=== PATIENT | male | born 1945 | race Caucasian/White ===

== ENCOUNTER → 2018-03-27 06:41 | Outpatient (CLI) | payer MEDICARE, MEDICAID, SELFPAY ==
--- NOTE | 2018-03-27 06:53 | MRI_ITS ---
STUDY: MRI BRAIN WITHOUT CONTRAST REASON FOR EXAM: Male, 72 years old. syncope, memory lloss, tremors d/t meds TECHNIQUE: Standardized multiplanar fat and water weighted pulse sequences were obtained. COMPARISON: None. FINDINGS: Normal size of the ventricles and extra-axial spaces for the patient's age. There are a limited number of small white matter hyperintensities, distributed throughout the deep white matter tracts of the cerebral hemispheres, consistent with mild chronic white matter ischemic changes. Normal bilateral basal ganglia. Normal thalami. There is no extra-axial fluid accumulation. Normal flow voids within the major intracranial circulation suggesting patency by spin echo criteria. Normal sella turcica, pituitary gland, infundibular stalk, optic chiasm and hypothalamus. Normal tectal plate and pineal gland. Normal midbrain, sheyla and medulla. Normal cerebellum. Normal basal cisterns. Normal bilateral temporal bones. Normal bilateral internal auditory canals. MRI/Brain without Contrast IMPRESSION: No acute intracranial abnormality. Electronically Signed: Balaji Brown MD at 8:07 EST Tel , Service support ,
--- OUTSIDE RECORDS SUMMARY | 2018-05-12 18:32 | XMS RPT_ITS ---
:1945 Author Organization OHIP Care Team Providers Name Role Phone Refugio Ro Attending Unavailable Refugio Ro Attending Unavailable Chad Foster Attending Unavailable Cristian, Chad S. Referring Unavailable Khandewal, Kathryn Primary Care Unavailable River Fosterh SKenan Attending Unavailable Cristian, Chad S. Referring Unavailable Khandewal, Kathryn Primary Care Unavailable FRANCISCO STARKS Admitting Unavailable DOMINIC LEDESMA Attending Unavailable MACKENZIE LIZARRAGA Consulting Unavailable BHAVIK TYLER Admitting Unavailable SOPHIA FONTENOT Attending Unavailable REMBERTO FERNANDEZ Consulting Unavailable ZAINA, CORONA Admitting Unavailable EUGENIA RAI () Attending Unavailable SYLVIA MCFARLAND Consulting Unavailable SHERITA STRANGE Attending Unavailable APOLLO, UPMA Admitting Unavailable APOLLO, UPMA Attending Unavailable GERMAN ADKINS Consulting Unavailable CRISTOBAL BROWN Attending Unavailable EUSEBIO XIAO Attending Unavailable APOLLO, UPMA Admitting Unavailable APOLLO, UPMA Attending Unavailable DEIRDRE REYES Attending Unavailable DAVID HIDALGO Referring Unavailable PROBLEMS PROBLEMS DATE TYPE CONDITION / CODE ATTENDING STATUS SOURCE 04/29/2018 Active Unknown / UNK(Unknown) APOLLO, UPMA Active [facility] Other [place] Repository 04/28/2018 Active Other symptoms and NA Active [facility] signs involving Clinic Other appearance and [place] behavior / Repository R46.89(ICD-10) 04/28/2018 Active Undifferentiated NA Active [facility] schizophrenia / Clinic Other F20.3(ICD-10) [place] Repository 03/11/2018 Active Laceration without SCHWIGER, EUSEBIO Active [facility] foreign body of left [facility] Clinic Other ear, initial encounter [place] / S01.312A(ICD-10) Repository 02/01/2018 Active Nausea with vomiting, CRISTOBAL BROWN Active [facility] unspecified / REFUGIO Clinic Other R11.2(ICD-10) [place] Repository 01/23/2018 Active Schizotypal disorder / APOLLO, 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) Clinic Other [place] Repository 01/22/2018 Active Schizophreniform SCHIKOWSKI, [facility]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 / SHERITA WEISS Clinic Other F20.81(ICD-10) [place] Repository 12/24/2017 Active Unspecified severe THUESTAD, EUGEINA [facility] protein-calorie A (MD) Clinic Other malnutrition / [place] E43(ICD-10) Repository 12/24/2017 Active Deficiency of other THUESTAD, EUGENIA [facility] specified B group A () Clinic Other vitamins / [place] E53.8(ICD-10) Repository 12/17/2017 Active Disorientation, THUESTAD, EUGENIA [facility] unspecified / A () Clinic Other R41.0(ICD-10) [place] Repository 12/17/2017 Active Pain in left toe(s) / THUESTAD, EUGENIA [facility] M79.675(ICD-10) A () Clinic Other [place] Repository 12/17/2017 Active Parkinson's disease / THUESTAD, EUGENIA [facility] G20(ICD-10) A () Clinic Other [place] Repository 12/17/2017 Active Dementia in other THUESTAD, EUGENIA [facility] diseases classified A () Clinic Other elsewhere with [place] behavioral disturbance Repository / F02.81(ICD-10) 09/09/2017 Active Mild protein-calorie POQUIANA FAYELA Active [facility] malnutrition / J Clinic Other E44.1(ICD-10) [place] Repository 09/03/2017 Active Tremor, unspecified / AHMED, VASEEM Active [facility] R25.1(ICD-10) Clinic Other [place] Repository 09/03/2017 Active Dysphagia, unspecified AHMED, VASEEM Active [facility] / R13.10(ICD-10) Clinic Other [place] Repository 09/03/2017 Active Abnormal weight loss / AHMED, VASEEM Active [facility] R63.4(ICD-10) Clinic Other [place] Repository 09/03/2017 Active Other malaise / AHMED, VASEEM Active [facility] R53.81(ICD-10) Clinic Other [place] Repository 09/03/2017 Active Other drug induced AHMED, 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 Clinic Other / G21.19(ICD-10) [place] Repository 06/10/2017 Unknown Z11.1 - Encounter for Refugio Ro Active [place] screening for [facility] tuberculosis / Repository Z11.1(ICD-10) PROCEDURES PROCEDURES No Procedure Records FoundRESULTS RESULTS CASE MANAGEM Observed: 05/06/2018 Status: COMPLETED Source: [place] 1:06 PM [facility] OTHER [place] REPOSITORY HNO ID: [id number] Author: Silva Bobby (Sw) Service: Social Work Author Type: Mathematics Faculty Member Type: Care Mgt Progress Note Filed: 05/06/2018 1:10 PM Note Text: BEHAVIORAL HEALTH SOCIAL WORK PROGRESS NOTE SERVICE DATE: 05/06/2018 SERVICE TIME: 1:06 PM Referral information sent to [facility] and [facility] [place] [facility]. Pt wasn't accepted at [facility] or [facility]. [facility] is still reviewing the information and [facility] is sending someone out to assess pt. Will continue to offer pt support and structure and assist with discharge plans. SIGNATURE: BRIELLE Baldwin PATIENT NAME: Sherita Jurado DATE: May 06, 2018 TIME: 1:06 PM PROGRESS Observed: 05/06/2018 Status: COMPLETED Source: [place] 11:54 AM CLINIC OTHER CAMPUS REPOSITORY HNO ID: [id number] Author: Vikram Washintgon Service: General Internal Medicine Author Type: Physician Type: Progress Notes Filed: 05/06/2018 12:53 PM Note Text: INTERNAL MEDICINE PROGRESS NOTE SERVICE DATE: 05/06/2018 SERVICE TIME: 11 am ADMITTING PHYSICIAN: Josse Balderrama Subjective CHIEF COMPLAINT: Acute psychosis Current Facility-Administered Medications: carboxymethylcellulose sodium 1 Drop (CELLUVISC) 1 Drop BOTH EYES PRN carbidopa-levodopa 25-100 mg 2 tablet (SINEMET 25-100) 2 tablet ORAL q 4 H while awake QUEtiapine 75 mg tab(s) (SEROquel) 75 mg ORAL BID acetaminophen 650 mg tab(s) (TYLENOL) 650 mg ORAL q 6 H PRN aluminum-magnesium hydroxide-simethicone 200-200-20 mg/5 mL 30 mL (MAALOX,MYLANTA,MAG-AL PLUS) 30 mL ORAL q 4 H PRN magnesium hydroxide 400 mg/5 mL 30 mL (MOM) 30 mL ORAL DAILY PRN heparin 5,000 Units injection 5,000 Units SUBCUTANEOUS q 12 H haloperidol lactate 1 mg injection (HALDOL) 1 mg INTRAMUSCULAR q 6 H PRN amantadine HCl 100 mg cap(s) (SYMMETREL) 100 mg ORAL BID donepezil 20 mg tab(s) (ARICEPT) 20 mg ORAL AT BEDTIME potassium chloride ER 10 mEq tab(s) (K-DUR, KLOR-CON) 10 mEq ORAL AT BEDTIME primidone 50 mg tab(s) (MYSOLINE) 50 mg ORAL q 12 H cyanocobalamin 500 mcg (VITAMIN B-12) 500 mcg ORAL DAILY cholecalciferol 1,000 Units tab(s) (VITAMIN D3) 1,000 Units ORAL DAILY INTERVAL HISTORY OF PRESENT ILLNESS: C/o left shoulder pain and leg swelling Objective PHYSICAL EXAM: Patient Vitals for the past 24 hrs: BP Temp Pulse Resp SpO2 05/06/18 0818 85/54 36.7 ?C (98.1 ?F) (!) 59 16 97 % 05/05/181956 95/54 - - - - 05/05/181926 (!) 87/37 37.2 ?C (99 ?F) 76 - 97 % Body mass index is 19.5 kg/m?. GENERAL: Alert, no distress, cooperative SKIN: Skin color, texture, turgor normal. No rashes or lesions. OROPHARYNX: Lips, mucosa, and tongue are normal.Teeth and gums, normal. Oropharynx normal. NECK: No jugulovenous distention, Supple LUNGS: Lungs clear to auscultation. Good diaphragmatic excursion. CARDIAC: Normal S1 and S2; no rubs, murmurs, or gallops ABDOMEN: Soft, nontender EXTREMITIES: No ulcers NEURO: Alert, oriented X 3 PULSES: 2+ radial, 2+ carotid DATA: Diagnostic tests reviewed for today's visit: CBC, Coags, BMP, Mg, Phos Recent Labs 05/04/18 1930 WBC 4.65 HB 12.8* HCT 37.7* PLT 206 NA 133* K 4.6 CHLOR 97* CO2 28 BUN 14 CREAT 0.79 GLUC 75 CA 8.6 Assessment/Plan Acute exacerbation of chronic schizoaffective schizophrenia (HCC) POA: Yes ? Schizophrenia, chronic condition with acute exacerbation (HCC) POA: Yes ? Parkinson's disease ? Acute psychosis Hypotension - asymptomatic Shoulder pain - Sec OA - lidocaine patch ? ? Plan: lidoderm patch and odessa hose stockings Resume home medication Labs to follow DVT prophylaxs Medication and Non-Pharmacologic VTE Prophylaxis/Anticoagulants Anticoagulant AND Antiplatelet Medications Start Dose Route Frequency Ordered Stop 04/29/18 1000 heparin 5,000 Units injection (Medical At Risk ) 5,000 Units SUBCUTANEOUS EVERY 12 HOURS 04/29/18 0955 -- 04/29/18 1015 vte non-pharmacologic prophylaxis contraindicated ([place] 04/29/18 1015 activity - mobilize [place] 04/29/18 1000 vte pharmacologic prophylaxis contraindicated [place] 04/29/18 1000 vte non-pharmacologic prophylaxis - none indicated ([place]) VTE Prophylaxis: VTE prophylaxis appropriate SIGNATURE: Vikram Washington MD PATIENT NAME: Sherita Jurado DATE: May 06, 2018 TIME: 11:54 AM PAGER/CONTACT #: [phone] NURSING PROG Observed: 05/06/2018 Status: COMPLETED Source: [place] 9:41 AM CLINIC OTHER CAMPUS REPOSITORY HNO ID: [id number] Author: Magdalena Pace RN Service: (none) Author Type: Registered Nurse Type: Nursing Progress Note Filed: 05/06/2018 12:13 PM Note Text: Nursing Progress Note Patient Name: Sherita Jurado Patient Location: [place]/ [place] Daily Note:A+Ox1-2, affect blunted, mood withdrawn, disengaged, poor eye contact, selectively nonverbal, ate breakfast and went back to bed, accepted VS and took medication without much difficulty, preoccupied, appears to be internally stimulated, no indication of pain, no SOB, in no acute distress, safety measures taken. Much sleeping, cooperative with PM medication, pt signed in and consent given by guardian. This note was completed by: Magdalena Pace RN NURSING PROG Observed: 05/05/2018 Status: COMPLETED Source: [place] 11:14 PM [facility] REPOSITORY HNO ID: [id number] Author: Michelle (Rn) JOSE Lozada Service: (none) Author Type: Registered Nurse Type: Nursing Progress Note Filed: 05/06/2018 6:13 AM Note Text: Nursing Progress Note Patient Name: Sherita Jurado Patient Location: [facility] [place] 421/ [place] Daily Note: Patient AANDOx2. No c/o pain. Speech is minimal and soft but does verbalize needs at times. No agitated or combative behaviors. Took HS meds whole with water, no issues. Was out to day area for short period of time for snack then went back to room. No other needs presented. Q15 minute safety rounds remain. 0109: pt sleeping 0355: pt remains sleeping 0612: pt awake, no needs. This note was completed by: Michelle Lozada RN CT BRAIN WO IVCON Observed: 05/05/2018 Status: F Source: [place] 2:50 PM [facility] REPOSITORY * * *Final Report* * * DATE OF EXAM: May 05 2018 2:50PM [facility] 0504 - CT BRAIN WO IVCON / PROCEDURE REASON: Head trauma, headache * * * * Physician Interpretation * * * * RESULT: EXAMINATION: CT BRAIN WO IVCON CLINICAL HISTORY: Head trauma, headache, TECHNIQUE: Serial axial images without IV contrast were obtained from the vertex to the foramen magnum. MQ: CTBWO_[id number] CT Dose-Length Product (DLP): 681 mGy*cm CT Dose Reduction Employed: Iterative recon COMPARISON: CT brain 12/17/2017 RESULT: Post-operative change: None. Acute change: No evidence of an acute infarct or other acute parenchymal process. Hemorrhage: No evidence of acute intracranial hemorrhage. Mass Lesion / Mass Effect: There is no evidence of an intracranial mass or extraaxial fluid collection. No significant mass effect. Chronic change: Small patchy foci of supratentorial white matter hypoattenuation are nonspecific but probably due to chronic small vessel ischemic disease. Parenchyma: There is no significant volume loss. The brain parenchyma is otherwise within normal limits for age. Ventricles: The ventricles are within normal limits of size and configuration for age. Paranasal sinuses and skull base: The visualized paranasal sinuses are grossly clear. The skull base and imaged soft tissues are unremarkable. IMPRESSION: No acute intracranial process Transcribed Using Voice Recognition Transcribe Date/Time: May 05 2018 2:52P Dictated by: MARIA INES DIETRICH MD This examination was interpreted and the report reviewed and electronically signed by: MARIA INES DIETRICH MD on May 05 2018 3:09PM EST [id number] [id number] Observed: 05/05/2018 Status: COMPLETED Source: [place] 1:47 PM CLINIC OTHER CAMPUS REPOSITORY HNO ID: [id number] Author: Josse Balderrama Service: Psychiatry Author Type: Physician Type: Progress Notes Filed: 05/06/2018 9:41 AM Note Text: PROGRESS NOTE BEHAVIORAL HEALTH SERVICE DATE: 05/05/2018 SERVICE TIME: 1:47 PM The Interdisciplinary team met and reviewed treatment goals and discharge planning. Subjective He is secluded to self and has been more resistive with care issues. Objective PHYSICAL EXAM: BP 122/68 Pulse 66 Temp 36.4 ?C (97.5 ?F) (Oral) Resp 18 Ht 188 cm (6' 2) Wt 68.9 kg (151 lb 14.4 oz) SpO2 96% BMI 19.50 kg/m? MENTAL STATUS EXAMINATION: Appearance: Casually dressed Behavior: Disorganized Orientation: Person Speech/Language: Soft and Slow Mood/Affect: Suspicious Thought Form: Tangential Thought Content: Vague Suicidal Ideations: No suicidal ideation, intent or plan. Homicidal Ideations: No homicidal ideation, intent or plan. Insight: Insight is absent Judgment: Grossly impaired Memory/Cognition: Moderately Impaired Psychomotor: Psychomotor activity was normal NEW PROBLEMS ON UNIT SINCE LAST ENCOUNTER: None Current hospital medications: carboxymethylcellulose sodium 1 Drop (CELLUVISC) 1 Drop BOTH EYES PRN carbidopa-levodopa 25-100 mg 2 tablet (SINEMET 25-100) 2 tablet ORAL q 4 H while awake QUEtiapine 75 mg tab(s) (SEROquel) 75 mg ORAL BID acetaminophen 650 mg tab(s) (TYLENOL) 650 mg ORAL q 6 H PRN aluminum-magnesium hydroxide-simethicone 200-200-20 mg/5 mL 30 mL (MAALOX,MYLANTA,MAG-AL PLUS) 30 mL ORAL q 4 H PRN magnesium hydroxide 400 mg/5 mL 30 mL (MOM) 30 mL ORAL DAILY PRN heparin 5,000 Units injection 5,000 Units SUBCUTANEOUS q 12 H haloperidol lactate 1 mg injection (HALDOL) 1 mg INTRAMUSCULAR q 6 H PRN amantadine HCl 100 mg cap(s) (SYMMETREL) 100 mg ORAL BID donepezil 20 mg tab(s) (ARICEPT) 20 mg ORAL AT BEDTIME potassium chloride ER 10 mEq tab(s) (K-DUR, KLOR-CON) 10 mEq ORAL AT BEDTIME primidone 50 mg tab(s) (MYSOLINE) 50 mg ORAL q 12 H cyanocobalamin 500 mcg (VITAMIN B-12) 500 mcg ORAL DAILY cholecalciferol 1,000 Units tab(s) (VITAMIN D3) 1,000 Units ORAL DAILY DATA: Diagnostic tests reviewed for today's visit: Most recent labs and imaging results. Assessment/Plan DIAGNOSIS: 1. PRIMARY: Schizophrenia Paranoid Type with acute exacerbation 2. Dementia with behavioral problems GAF: -30-21 Behavior is considerably influenced by delusions or hallucination or serious impairment in communication or judgment RISK ASSESSMENT: Suicide: low Homicide: low Deliberate Self-Harm: low Aggression: low Imminent Physical Self Impairment: low INFORMED CONSENT: Yes, completed with the Designated POA over Healthcare. Discussed the risks, benefits and alternatives to the medication(s) recommended. Consent was given. INTERVENTION: Biological: see orders Psychological: group and behavioral therapy Social: home with services DISCHARGE PLANNING: when stable SIGNATURE: Diana Casillas APRN.CNP PATIENT NAME: Sherita Jurado DATE: May 05, 2018 TIME: 1:47 PM PAGER/CONTACT#: [phone] I saw and evaluated the patient. Discussed with the RESIDENT INSPECTOR and agree with RESIDENT INSPECTOR's findings and plan as documented in the RESIDENT INSPECTOR's note. Kelechi Yan MD CASE MANAGEM Observed: 05/05/2018 Status: COMPLETED Source: [place] 1:08 PM [facility] REPOSITORY HNO ID: [id number] Author: Silva Bobby (Sw) Service: Social Work Author Type: Mathematics Faculty Member Type: Care Mgt Progress Note Filed: 05/05/2018 1:16 PM Note Text: BEHAVIORAL HEALTH SOCIAL WORK PROGRESS NOTE SERVICE DATE: 05/05/2018 SERVICE TIME: 1:08 PM Pt is A+OX2. He has been compliant with taking his medications and cooperative with care. His affect is blunted and mood appears depressed. He is withdrawn and isolative. He will come out of his room for meals. He continues to appear suspicious and guarded. He doesn't attend group therapy programs. He has been less paranoid and delusional. He will still lay down on the floor, by his own accord. Displays bizarre behaviors. He does respond to redirection. Referral information sent to [facility]; awaiting for a response. Will continue to offer pt support and structure and assist with discharge plans. SIGNATURE: BRIELLE Baldwin PATIENT NAME: Sherita Jurado DATE: May 05, 2018 TIME: 1:08 PM NUTRITION Observed: 05/05/2018 Status: COMPLETED Source: [place] 12:17 PM [facility] REPOSITORY HNO ID: [id number] Author: Tanya Clements Service: Nutrition Therapy Author Type: Registered Dietitian Type: Nutrition Filed: 05/05/2018 12:37 PM Note Text: NUTRITION THERAPY INITIAL ASSESSMENT SERVICE DATE: 05/05/2018 SERVICE TIME: 12:34 PM RECOMMENDED MALNUTRITION DIAGNOSIS: MILD PROTEIN-CALORIE MALNUTRITION Suspect degree of malnutrition to be greater d/t unintentional weight loss. Pt unable to participate in NFPE. In the context of Social/Environmental Circumstance based on: Unintentional Weight Loss: >10% in 6 months NUTRITION CARE PLAN: Problem, Etiology and Signs/Symptoms: Increased nutrient needs (energy/protein) related to increased demand for nutrient as evidenced by significant unintentional weight loss (>10%) over the last 6 months. Intervention: Start oral supplement Continue diet Monitor oral intake and weights FR per MD - mild hyponatremia documented Please provide feeding assistance Monitor and Evaluation: Goal: Meet >75% of estimated needs Monitor fluid/electrolyte balance Monitor labs, I/Os, vital signs, weight Discharge Nutrition Recommendations: Diet: dental soft Supplements: moderate calorie/protein per pt preference Per HPI: Sherita presents for admission secondary to increased paranoia and psychosis. PAST MEDICAL HISTORY Diagnosis Date - Actinic keratosis - Breast lump LT breast; cavernous hemangioma/excised - Dizziness - Epidermoid cyst of skin - Falls - Lipoma of skin forearms and abdomen - Mammogram abnormal suspicious of cancer- referral made - Obesity - On upper doubler drug therapy - Palpitations - Parkinson disease (HCC) - Schizophrenia (HCC) - Tremor - Vitamin D deficiency schizophrenia with acute exacerbation Current Diet Order DIET FOOD CONSISTENCY CONTROLLED Order Specific Question: Food Consistency Answer: DENTAL SOFT Order Specific Question: Behavioral Medicine Answer: SAFETY TRAY Nutritional Intake Prior to Admission: Unable to determine Pt averaging 76.55 of meals over last 7 days documented. Attempted to meet with pt this morning. He was in his room - eyes opened when I entered the room but then closed them and would not respond to assessment questions. Referred to nutrition note from January admission to 4th floor. Pt diet was downgraded to dental soft d/t poor dentition - this is the diet currently ordered. Per EPIC appears pt tolerating diet well. NSG confirms pt appetite good. D/t significant weight loss over the last 6 months to order ensure and ensure high protein with meals. GI symptoms: chewing problems Nutrition Abdominal Exam: and not assessed ANTHROPOMETRICS Height: 188 cm (6' 2) Admission Weight: 72.8 kg (160 lb 6.4 oz) Current Weight: 68.9 kg (151 lb 14.4 oz) Body mass index is 19.5 kg/m?. underweight for age Weight has decreased by 9.2 kg over ~6 months representing 12.2 % weight change clinically significant Last Wt 05/02/18 : 68.9 kg (151 lb 14.4 oz) 04/28/18 : 72.6 kg (160 lb) 03/11/18 : 78.2 kg (172 lb 6.4 oz) -ED weight - scale type not specified 02/01/18 : 72.6 kg (160 lb) 01/24/18 : 72.3 kg (159 lb 6.4 oz) - EU 4th floor bed scale 01/22/18 : 75.3 kg (166 lb) 12/17/17 : 75.4 kg (166 lb 3.2 oz) 12/17/17 : 77 kg (169 lb 12.8 oz) 12/16/17 : 78.5 kg (173 lb) 12/10/17 : 74.8 kg (165 lb) 11/12/17 : 78.1 kg (172 lb 3.2 oz) 10/16/17 : 78.9 kg (174 lb) 09/09/17 : 76.8 kg (169 lb 4.8 oz) 09/03/17 : 83.5 kg (184 lb) 08/25/17 : 83.5 kg (184 lb) 08/04/17 : 85.3 kg (188 lb) 07/24/17 : 85.4 kg (188 lb 3.2 oz) 02/06/17 : 93 kg (205 lb) 11/08/16 : 94.3 kg (208 lb) 11/30/15 : 97.1 kg (214 lb) IBW: 81.2 kg for BMI >/=23 Dosing Weight: 68.9 kg Resting Metabolic Rate: 1509 Estimated kilocalorie needs: 4597-2527 kilocalories determined by 27-32 kcal/kg Estimated protein needs: 89-117 grams determined by 1.3-1.7 g/kg Dosing weight Estimated fluid needs: 3128-9179 milliliters based on 1 mL per kcal NUTRITION FOCUSED PHYSICAL EXAM: Unable to perform exam due to patient unable to participate, will re-attempt during reassessment. Temperature Max in 24 hours: Temp (24hrs), Av.3 ?C (97.3 ?F), Min:36.2 ?C (97.2 ?F), Max:36.4 ?C (97.5 ?F) BP 122/68 Pulse 66 Temp 36.4 ?C (97.5 ?F) (Oral) Resp 18 Ht 188 cm (6' 2) Wt 68.9 kg (151 lb 14.4 oz) SpO2 96% BMI 19.50 kg/m? Recent Labs 05/04/18 1930 GLUC 75 BUN 14 CREAT 0.79 NA 133* K 4.6 CHLOR 97* CO2 28 HB 12.8* HCT 37.7* WBC 4.65 Potential Signs of Inflammation: no identifiable sources Current Facility-Administered Medications: carboxymethylcellulose sodium 1 Drop (CELLUVISC) 1 Drop BOTH EYES PRN carbidopa-levodopa 25-100 mg 2 tablet (SINEMET 25-100) 2 tablet ORAL q 4 H while awake QUEtiapine 75 mg tab(s) (SEROquel) 75 mg ORAL BID acetaminophen 650 mg tab(s) (TYLENOL) 650 mg ORAL q 6 H PRN aluminum-magnesium hydroxide-simethicone 200-200-20 mg/5 mL 30 mL (MAALOX,MYLANTA,MAG-AL PLUS) 30 mL ORAL q 4 H PRN magnesium hydroxide 400 mg/5 mL 30 mL (MOM) 30 mL ORAL DAILY PRN heparin 5,000 Units injection 5,000 Units SUBCUTANEOUS q 12 H haloperidol lactate 1 mg injection (HALDOL) 1 mg INTRAMUSCULAR q 6 H PRN amantadine HCl 100 mg cap(s) (SYMMETREL) 100 mg ORAL BID donepezil 20 mg tab(s) (ARICEPT) 20 mg ORAL AT BEDTIME potassium chloride ER 10 mEq tab(s) (K-DUR, KLOR-CON) 10 mEq ORAL AT BEDTIME primidone 50 mg tab(s) (MYSOLINE) 50 mg ORAL q 12 H cyanocobalamin 500 mcg (VITAMIN B-12) 500 mcg ORAL DAILY cholecalciferol 1,000 Units tab(s) (VITAMIN D3) 1,000 Units ORAL DAILY MNT Billing Type: Initial Assess/15 min 3 units SIGNATURE: Tanya Clements RD,LD PATIENT NAME: Sherita Jurado DATE: May 05, 2018 TIME: 12:17 PM PAGER: [phone] NURSING PROG Observed: 05/05/2018 Status: COMPLETED Source: [place] 10:41 AM CLINIC OTHER CAMPUS REPOSITORY HNO ID: [id number] Author: Kamila (Rn) JOSE Villalta Service: (none) Author Type: Registered Nurse Type: Nursing Progress Note Filed: 05/05/2018 6:11 PM Note Text: Nursing Progress Note Patient Name: Sherita Jurado Patient Location: [place]/ [place] Daily Note: Pt alert and oriented x 2. Less bizarre and blunted. Pleasant with care and takes his medication easily whole with water. Out to day area for breakfast. Presently back in room resting comfortable. Will encourage group attendance. 1200 Pt found sitting on floor next to bed by staff member after she heard a bang. Pt. selectively nonverbal but gestured that he leaned back and hit the radiator. Has a history of sitting and laying down on the floor. Denies pain or falling. CT of head ordered. SERS report filed. 1600 CT shows no acute intracranial process. Pt out to day area for dinner. No agitation or further behaviors. Has been continent this shift. 15 Minute safety rounds maintained. This note was completed by: Kamila Villalta RN NURSING PROG Observed: 05/05/2018 Status: COMPLETED Source: [place] 5:14 AM [facility] OTHER [place] REPOSITORY HNO ID: [id number] Author: Jamila (Rn) JOSE Barrett Service: Nursing Author Type: Registered Nurse Type: Nursing Progress Note Filed: 05/05/2018 5:14 AM Note Text: Nursing Progress Note Patient Name: Sherita Jurado Patient Location: [address]/ [place] Daily Note:Pt was in bed, resting comfortably. Pt took HS meds w/o difficultly. Pt was assisted to the bathroom as needed. No s/s of pain or distress. Pt slept long hours. This note was completed by: Jamila Barrett RN CBC AND DIFFERENTIAL Collected: 05/04/2018 Status: F Source: [place] 7:30 PM [facility] OTHER [place] REPOSITORY TYPE CODE TESTS RESULT OUT OF REFERENCE UNITS RANGE LAB WBC 3.70-11.00 k/uL WBC 4.65 LAB RBC 4.20-6.00 m/uL Low RBC 3.91 LAB HGB 13.0-17.0 g/dL Low Hemoglobin 12.8 LAB HCT 39.0-51.0 % Low Hematocrit 37.7 LAB MCV 80.0-100.0 fL MCV 96.4 LAB MCH 26.0-34.0 pG MCH 32.7 LAB MCHC 30.5-36.0 g/dL MCHC 34.0 LAB RDWCV 11.5-15.0 % RDW-CV 12.6 LAB PLTCT 150-400 k/uL Platelet Count 206 LAB MPV 9.0-12.7 fL MPV 9.6 LAB ANEUT % Neut% 63.1 LAB AANEUT 1.45-7.50 k/uL Abs Neut 2.93 LAB ALYMP % Lymph% 26.0 LAB AALYMP 1.00-4.00 k/uL Abs Lymph 1.21 LAB AMONO % Ceiba% 9.2 LAB AAMONO <0.87 k/uL Abs Ceiba 0.43 LAB AEOS % Eosin% 1.3 LAB AAEOS <0.46 k/uL Abs Eosin 0.06 LAB ABASO % Baso% 0.4 LAB AABASO <0.11 k/uL Abs Baso <0.03 LAB DTYP DTYPE Auto Diff BASIC METABOLIC PANL Collected: 05/04/2018 Status: F Source: [facility] 7:30 PM [facility] OTHER C[facility]US REPOSITORY TYPE CODE TESTS RESULT OUT OF REFERENCE UNITS RANGE LAB GLU 65-100 mg/dL Glucose 75 LAB BUN 8-25 mg/dL BUN 14 LAB CRET 0.7-1.4 mg/dL Creatinine 0.79 LAB NA 135-146 mmol/L Low Sodium 133 LAB K 3.5-5.0 mmol/L Potassium 4.6 LAB CL 98-110 mmol/L Low Chloride 97 LAB CO2 23-32 mmol/L CO2 28 LAB AGAP 0-15 mmol/L Anion Gap 8 LAB CA 8.5-10.5 mg/dL Calcium, Total 8.6 ALLIED HE[facility] Observed: 05/04/2018 Status: COMPLETED Source: [facility] 5:36 PM CLINIC OTHER CAMPUS REPOSITORY HNO ID: [id number] Author: AGUSTÍN Parsons Service: Behavioral Health Author Type: Dance Movement Therapist Type: Allied Health Filed: 05/05/2018 5:47 PM Note Text: PROGRESS NOTE BEHAVIORAL HEALTH Topic of Note: Three Day Note dance movement therapy SERVICE DATE: 05/04/2018 SERVICE TIME: 5:21 PM Subjective: Sherita presents as inconsistent In group attendance withdrawing And refusing more sessions than attending However When he does attend he engages fully, animated and verbalizing his feelings yea I can do this ( demonstrating his movement skill in DMT) for the most part however he is reclusive to room sleeps a lot( sometimes pretends when invited to group that he is sleeping, getting up after therapist leaves and walking to the dining room while peers are in group). He presents as minimally progressing in his stabilization process and As with a few other peers finds the nights more difficult , not sleeping and needing attention. Nurses noted change in Not sleeping Through the night 05/01/18 to now sleeping more at night and up more in the dayroom during the day but refusing groups. Objective: The following table accounts the patient's attendance (minutes attended / minutes offered) for all offered ET and other group sessions since last report: Date ET / Group topics Attendence Comments 05/02/18 DMT: Friday stretch/ gila river of support goals/ progress 0 ? 05/03/18 SC:DMT Sabbath at Home/ Prayer Service/ Holy Communion ?came early Left early after Communion with a handshake of peace 05/03/18 RT: Arts/ Crafts Collage making ?sleeping 05/04/18 RT: Exercise, parachute and discussion left chacorta but while there engaged 05/04/18 DMT: MLK Holiday reflection / meditation refused wanted to sleep 05/05/18 DMT:Reaching out, postures and gestures 005/05/18 DMT: sensory integration, energy medicine And emotional expression 0 Off unit For medical check up re being found sitting on the floor received CT scan ? Pt also receives daily 1:1 symptom/mood check-in and/or good morning group for orientation/schedule. ? Assessment: Pt demonstrates a continued need for expressive therapies while in the hospital. ? Plan: Pt will continue to be offered expressive therapies 5x per week to: ? ? Increase socialization and positive support systems Improve communication and emotional expression Channel energy feelings into constructive outlets Explore creative expression Relaxation skills Dance movement Therapy/ Spiritual Care interventions may include, but are not limited to: ? Therapeutic arts ? Relaxation/stress management ? Therapeutic fitness ? Identifying positive coping skills ? Reminiscing ? Self Awareness/self expression exercises ? Structured Socialization [place] DMT: Dance Movement Therapy MT: Music Therapy DR: Dining Room SW: Mathematics Faculty Member ET: Expressive Therapy RT: Recreation Therapy ? SIGNATURE: AGUSTÍN Parsons PATIENT NAME: Sherita Jurado DATE: May 04, 2018 TIME: 5:37 PM PAGER/CONTACT #: NURSING PROG Observed: 05/04/2018 Status: COMPLETED Source: [facility] 2:12 PM [facility] REPOSITORY HNO ID: [id number] Author: Kamila (Rn) JOSE Villalta Service: (none) Author Type: Registered Nurse Type: Nursing Progress Note Filed: 05/04/2018 5:59 PM Note Text: Nursing Progress Note Patient Name: Sherita Jurado Patient Location: [address] Daily Note: Pt alert and oriented x 2 - 3. Less suspicious and somewhat more engaged. Affect blunted but is cooperative with care and medication compliant. Remaining out in day area for more extended periods of time. Refused to attend group. Sleeps with covers over his head. Incontinent this afternoon. 15 minute safety rounds maintained. This note was completed by: Kamila Villalta RN PROGRESS Observed: 05/04/2018 Status: COMPLETED Source: [facility] 11:38 AM [facility] OTHER [place] REPOSITORY HNO ID: [id number] Author: Josse Balderrama Service: Psychiatry Author Type: Physician Type: Progress Notes Filed: 05/05/2018 9:33 AM Note Text: PROGRESS NOTE BEHAVIORAL HEALTH SERVICE DATE: 05/04/2018 SERVICE TIME: 11:38 AM The Interdisciplinary team met and reviewed treatment goals and discharge planning. Subjective Will come out for meals only. Mood and affect blunted, guarded, suspicious. No behaviors. Objective PHYSICAL EXAM: BP 135/66 Pulse 76 Temp 36.9 ?C (98.4 ?F) (Oral) Resp 18 Ht 188 cm (6' 2) Wt 68.9 kg (151 lb 14.4 oz) SpO2 98% BMI 19.50 kg/m? MENTAL STATUS EXAMINATION: Appearance: Disheveled Behavior: Disorganized Orientation: Person Speech/Language: Soft and Slow Mood/Affect: Suspicious Thought Form: Loose Associations Thought Content: Delusions: Bizarre Suicidal Ideations: No suicidal ideation, intent or plan. Homicidal Ideations: No homicidal ideation, intent or plan. Insight: Insight is absent Judgment: Grossly impaired Memory/Cognition: Severly Impaired Psychomotor: Tremors NEW PROBLEMS ON UNIT SINCE LAST ENCOUNTER: None Current hospital medications: carboxymethylcellulose sodium 1 Drop (CELLUVISC) 1 Drop BOTH EYES PRN carbidopa-levodopa 25-100 mg 2 tablet (SINEMET 25-100) 2 tablet ORAL q 4 H while awake QUEtiapine 75 mg tab(s) (SEROquel) 75 mg ORAL BID acetaminophen 650 mg tab(s) (TYLENOL) 650 mg ORAL q 6 H PRN aluminum-magnesium hydroxide-simethicone 200-200-20 mg/5 mL 30 mL (MAALOX,MYLANTA,MAG-AL PLUS) 30 mL ORAL q 4 H PRN magnesium hydroxide 400 mg/5 mL 30 mL (MOM) 30 mL ORAL DAILY PRN heparin 5,000 Units injection 5,000 Units SUBCUTANEOUS q 12 H haloperidol lactate 1 mg injection (HALDOL) 1 mg INTRAMUSCULAR q 6 H PRN amantadine HCl 100 mg cap(s) (SYMMETREL) 100 mg ORAL BID donepezil 20 mg tab(s) (ARICEPT) 20 mg ORAL AT BEDTIME potassium chloride ER 10 mEq tab(s) (K-DUR, KLOR-CON) 10 mEq ORAL AT BEDTIME primidone 50 mg tab(s) (MYSOLINE) 50 mg ORAL q 12 H cyanocobalamin 500 mcg (VITAMIN B-12) 500 mcg ORAL DAILY cholecalciferol 1,000 Units tab(s) (VITAMIN D3) 1,000 Units ORAL DAILY DATA: Diagnostic tests reviewed for today's visit: Most recent labs and imaging results. Assessment/Plan DIAGNOSIS: 1. PRIMARY: Schizophrenia Paranoid Type with acute exacerbation 2. Dementia with behavioral problems GAF: -30-21 Behavior is considerably influenced by delusions or hallucination or serious impairment in communication or judgment RISK ASSESSMENT: Suicide: low Homicide: low Deliberate Self-Harm: low Aggression: low Imminent Physical Self Impairment: low INFORMED CONSENT: Yes, completed with the Designated POA over Healthcare. Discussed the risks, benefits and alternatives to the medication(s) recommended. Consent was given. INTERVENTION: Biological: see orders Psychological: group and behavioral therapy Social: new placement DISCHARGE PLANNING: when placement found SIGNATURE: Diana Casillas APRN.CNP PATIENT NAME: Sherita Jurado DATE: May 04, 2018 TIME: 11:38 AM PAGER/CONTACT#: [phone] I saw the patient and have read and reviewed the RESIDENT INSPECTOR's note and findings. I have discussed the RESIDENT INSPECTOR's findings and plan as documented in the RESIDENT INSPECTOR's note. Josse Balderrama MD PROGRESS Observed: 05/04/2018 Status: COMPLETED Source: [facility] 6:37 AM [facility] OTHER CAMPUS REPOSITORY O ID: [id number] Author: Vikram Washington Service: General Internal Medicine Author Type: Physician Type: Progress Notes Filed: 05/04/2018 7:03 PM Note Text: INTERNAL MEDICINE PROGRESS NOTE SERVICE DATE: 05/04/2018 SERVICE TIME: 8 am ADMITTING PHYSICIAN: Josse Balderrama Subjective CHIEF COMPLAINT: Resting tremor present Current Facility-Administered Medications: carboxymethylcellulose sodium 1 Drop (CELLUVISC) 1 Drop BOTH EYES PRN carbidopa-levodopa 25-100 mg 2 tablet (SINEMET 25-100) 2 tablet ORAL q 4 H while awake QUEtiapine 75 mg tab(s) (SEROquel) 75 mg ORAL BID acetaminophen 650 mg tab(s) (TYLENOL) 650 mg ORAL q 6 H PRN aluminum-magnesium hydroxide-simethicone 200-200-20 mg/5 mL 30 mL (MAALOX,MYLANTA,MAG-AL PLUS) 30 mL ORAL q 4 H PRN magnesium hydroxide 400 mg/5 mL 30 mL (MOM) 30 mL ORAL DAILY PRN heparin 5,000 Units injection 5,000 Units SUBCUTANEOUS q 12 H haloperidol lactate 1 mg injection (HALDOL) 1 mg INTRAMUSCULAR q 6 H PRN amantadine HCl 100 mg cap(s) (SYMMETREL) 100 mg ORAL BID donepezil 20 mg tab(s) (ARICEPT) 20 mg ORAL AT BEDTIME potassium chloride ER 10 mEq tab(s) (K-DUR, KLOR-CON) 10 mEq ORAL AT BEDTIME primidone 50 mg tab(s) (MYSOLINE) 50 mg ORAL q 12 H cyanocobalamin 500 mcg (VITAMIN B-12) 500 mcg ORAL DAILY cholecalciferol 1,000 Units tab(s) (VITAMIN D3) 1,000 Units ORAL DAILY INTERVAL HISTORY OF PRESENT ILLNESS: Denies any pain Objective PHYSICAL EXAM: Patient Vitals for the past 24 hrs: BP Temp Temp src Pulse Resp SpO2 05/03/18 0800 110/62 37 ?C (98.6 ?F) Oral 85 16 96 % Body mass index is 19.5 kg/m?. GENERAL: Alert, no distress, cooperative SKIN: Negative OROPHARYNX: negative NECK: No jugulovenous distention, Supple LUNGS: Negative CARDIAC: Normal S1 and S2; no rubs, murmurs, or gallops ABDOMEN: Soft, nontender EXTREMITIES: No ulcers NEURO: Alert, oriented X 3 PULSES: 2+ radial, 2+ carotid DATA: Diagnostic tests reviewed for today's visit: CBC, Coags, BMP, Mg, Phos Assessment/Plan Acute exacerbation of chronic schizoaffective schizophrenia (HCC) POA: Yes ? Schizophrenia, chronic condition with acute exacerbation (HCC) POA: Yes ? Parkinson's disease ? Acute psychosis ? ? Plan: Resume home medication Labs to follow DVT prophylaxs Medication and Non-Pharmacologic VTE Prophylaxis/Anticoagulants Anticoagulant AND Antiplatelet Medications Start Dose Route Frequency Ordered Stop 04/29/18 1000 heparin 5,000 Units injection (Medical At Risk ) 5,000 Units SUBCUTANEOUS EVERY 12 HOURS 04/29/18 0955 -- 04/29/18 1015 vte non-pharmacologic prophylaxis contraindicated (mo,oh) 04/29/18 1015 activity - mobilize patient (mo,oh) 04/29/18 1000 vte pharmacologic prophylaxis contraindicated (mo,oh) 04/29/18 1000 vte non-pharmacologic prophylaxis - none indicated (mo,oh) VTE Prophylaxis: VTE prophylaxis appropriate SIGNATURE: Vikram Washington MD PATIENT NAME: Sherita Jurado DATE: May 04, 2018 TIME: 6:37 AM PAGER/CONTACT #: [phone] NURSING PROG Observed: 05/04/2018 Status: COMPLETED Source: [facility] 6:14 AM [facility] REPOSITORY HNO ID: [id number] Author: Jamila (Rn) JOSE Barrett Service: Nursing Author Type: Registered Nurse Type: Nursing Progress Note Filed: 05/04/2018 6:14 AM Note Text: Nursing Progress Note Patient Name: Sherita Jurado Patient Location: [place]-403/ [place]-* Daily Note:Pt was in bed, resting comfortably. Pt took HS meds w/o difficultly. Pt was assisted to the bathroom as needed. No s/s of pain or distress. Pt slept long hours. This note was completed by: Jamila Barrett RN URINALYSIS WITH Collected: 05/03/2018 Status: F Source: [facility] 6:00 PM [facility] REPOSITORY TYPE CODE TESTS RESULT OUT OF RANGE REFERENCE UNITS LAB UCOL Yellow Color Abnormal Straw Alert LAB [facility] Clear Clarity Clear LAB UGLUC Negative mg/dL Glucose, Urine Negative LAB UBIL Negative Bilirubin, Urine Negative LAB UKET Negative Ketones, Urine Negative LAB USPG 1.003-1.030 Specific [place], Ur 1.020 LAB UHGB Negative Hemoglobin/Blood, Negative Ur LAB UPH 5.0-9.0 pH 7.0 LAB UPROT Negative mg/dL Protein, Urine Negative LAB UUROB 0.2-1.0 Urobilinogen 1.0 LAB UNITR Negative Nitrites Negative LAB ULKEST Negative Leukest Negative LAB UWBC 0-5 /HPF WBC 0-5 LAB URBC 0-3 /HPF RBC 0-3 LAB UCAST 0 /LPF Cast SEE COMMENT Result Comment: 0 LAB UBACT Negative /HPF Bacteria Abnormal 1+ Alert LAB UEPI Occasional /HPF Epithelial Cells SEE COMMENT Result Comment: Occasional Squamous Epithelial Cells Observed: 05/03/2018 Status: F Source: [facility] URINE CULTURE 6:00 PM [facility] OTHER CAMPUS REPOSITORY Sp. Request/Comment: - Specimen received in preservative Culture Result - >=100,000 CFU/ml Viridans Streptococcus --> ABNORMAL ALERT No further workup --> ABNORMAL ALERT Performed By: #### URCUL #### [facility] [address] [place], [place] [address] PROGRESS Observed: 05/03/2018 Status: COMPLETED Source: [facility] 1:34 PM [facility] OTHER CAMPUS REPOSITORY HNO ID: [id number] Author: Josse Balderrama Service: Psychiatry Author Type: Physician Type: Progress Notes Filed: 05/05/2018 9:33 AM Note Text: PROGRESS NOTE BEHAVIORAL HEALTH SERVICE DATE: 05/03/2018 SERVICE TIME: 1:34 PM The Interdisciplinary team met and reviewed treatment goals and discharge planning. Subjective Secluded to room; No laying on the floor today; Guarded and suspicious on approach. Mood and affect blunted. Objective PHYSICAL EXAM: BP 110/62 Pulse 85 Temp 37 ?C (98.6 ?F) (Oral) Resp 16 Ht 188 cm (6' 2) Wt 68.9 kg (151 lb 14.4 oz) SpO2 96% BMI 19.50 kg/m? MENTAL STATUS EXAMINATION: Appearance: Disheveled Behavior: Disorganized Orientation: Person Speech/Language: Soft Mood/Affect: Suspicious Thought Form: Tangential Thought Content: Vague Suicidal Ideations: No suicidal ideation, intent or plan. Homicidal Ideations: No homicidal ideation, intent or plan. Insight: Insight is absent Judgment: Grossly impaired Memory/Cognition: Severly Impaired Psychomotor: Psychomotor activity was normal NEW PROBLEMS ON UNIT SINCE LAST ENCOUNTER: None Current hospital medications: carboxymethylcellulose sodium 1 Drop (CELLUVISC) 1 Drop BOTH EYES PRN carbidopa-levodopa 25-100 mg 2 tablet (SINEMET 25-100) 2 tablet ORAL q 4 H while awake QUEtiapine 75 mg tab(s) (SEROquel) 75 mg ORAL BID acetaminophen 650 mg tab(s) (TYLENOL) 650 mg ORAL q 6 H PRN aluminum-magnesium hydroxide-simethicone 200-200-20 mg/5 mL 30 mL (MAALOX,MYLANTA,MAG-AL PLUS) 30 mL ORAL q 4 H PRN magnesium hydroxide 400 mg/5 mL 30 mL (MOM) 30 mL ORAL DAILY PRN heparin 5,000 Units injection 5,000 Units SUBCUTANEOUS q 12 H haloperidol lactate 1 mg injection (HALDOL) 1 mg INTRAMUSCULAR q 6 H PRN amantadine HCl 100 mg cap(s) (SYMMETREL) 100 mg ORAL BID donepezil 20 mg tab(s) (ARICEPT) 20 mg ORAL AT BEDTIME potassium chloride ER 10 mEq tab(s) (K-DUR, KLOR-CON) 10 mEq ORAL AT BEDTIME primidone 50 mg tab(s) (MYSOLINE) 50 mg ORAL q 12 H cyanocobalamin 500 mcg (VITAMIN B-12) 500 mcg ORAL DAILY cholecalciferol 1,000 Units tab(s) (VITAMIN D3) 1,000 Units ORAL DAILY DATA: Diagnostic tests reviewed for today's visit: Most recent labs and imaging results. Assessment/Plan DIAGNOSIS: 1. PRIMARY: Schizophrenia Paranoid Type with acute exacerbation 2. Dementia with behavioral problems GAF: -30-21 Behavior is considerably influenced by delusions or hallucination or serious impairment in communication or judgment RISK ASSESSMENT: Suicide: low Homicide: low Deliberate Self-Harm: low Aggression: low Imminent Physical Self Impairment: low INFORMED CONSENT: Yes, completed with the Designated POA over Healthcare. Discussed the risks, benefits and alternatives to the medication(s) recommended. Consent was given. INTERVENTION: Biological: see orders Psychological: group and behavioral therapy Social: home with with services DISCHARGE PLANNING: when stable SIGNATURE: Diana Casillas APRN.CNP PATIENT NAME: Sherita Jurado DATE: May 03, 2018 TIME: 1:34 PM PAGER/CONTACT#: [phone] I saw the patient and have read and reviewed the RESIDENT INSPECTOR's note and findings. I have discussed the RESIDENT INSPECTOR's findings and plan as documented in the RESIDENT INSPECTOR's note. Josse Balderrama MD NURSING PROG Observed: 05/03/2018 Status: COMPLETED Source: [facility] 1:19 PM CLINIC OTHER CAMPUS REPOSITORY HNO ID: [id number] Author: Radha SpencerRn) JOSE Bailey Service: (none) Author Type: Registered Nurse Type: Nursing Progress Note Filed: 05/03/2018 6:07 PM Note Text: 0800 Alert and oriented times two, some disorientation to time noted. Selectively nonverbal at times but when verbalizes speech is soft and very low. Compliant and cooperative with all care. 0900 Meds taken whole without c/o. Day area for breakfast, withdrawn, only verbalizes when spoken to and after eating returns to room promptly. 1330 Sleeping off and on, RR even and unlabored, had lunch day area earlier. 1700 Remains compliant and cooperative with all care. 1800 Urine sent as ordered NURSING PROG Observed: 05/02/2018 Status: COMPLETED Source: [facility] 8:59 PM [facility] REPOSITORY HNO ID: [id number] Author: Arielle SpencerRn) JOSE Oliver Service: (none) Author Type: Registered Nurse Type: Nursing Progress Note Filed: 05/02/2018 9:03 PM Note Text: Nursing Progress Note Patient Name: Sherita Jurado Patient Location: [place] Daily Note: Pt in bed ,quiet, went out of the room , at the dining, cooperative with care , calm, takes all his night meds whole with water, heparin shot given . This note was completed by: Arielle Oliver RN NURSING PROG Observed: 05/02/2018 Status: COMPLETED Source: [facility] 11:54 AM [facility] REPOSITORY HNO ID: [id number] Author: Kamila SpencerRn) JOSE Villalta Service: (none) Author Type: Registered Nurse Type: Nursing Progress Note Filed: 05/02/2018 7:04 PM Note Text: Nursing Progress Note Patient Name: Sherita Jurado Patient Location: [place] Daily Note: Alert and oriented x 2. Bizarre and withdrawn. Can be labile. Pulled off his brief exposing himself and yelled, I need a different size. Out to day area for breakfast. Cooperative with vitals and took all morning medications easily. Found sitting on the toilet but his brief was still up. Assisted into new one. Presently in bed with covers over his head. 1900 Pt had a good day. Out in day area for longer periods of time. Did not lay on the floor or disrobe inappropriately. Q 15 minute safety rounds maintained. This note was completed by: Kamila Villalta RN PROGRESS Observed: 05/02/2018 Status: COMPLETED Source: [facility] 10:25 AM [facility] OTHER CAMPUS REPOSITORY O ID: [id number] Author: Vikram Washington Service: General Internal Medicine Author Type: Physician Type: Progress Notes Filed: 05/02/2018 6:21 PM Note Text: INTERNAL MEDICINE PROGRESS NOTE SERVICE DATE: 05/02/2018 SERVICE TIME: 8 am ADMITTING PHYSICIAN: Josse Balderrama Subjective CHIEF COMPLAINT: SOB Current Facility-Administered Medications: carboxymethylcellulose sodium 1 Drop (CELLUVISC) 1 Drop BOTH EYES PRN carbidopa-levodopa 25-100 mg 2 tablet (SINEMET 25-100) 2 tablet ORAL q 4 H while awake QUEtiapine 75 mg tab(s) (SEROquel) 75 mg ORAL BID acetaminophen 650 mg tab(s) (TYLENOL) 650 mg ORAL q 6 H PRN aluminum-magnesium hydroxide-simethicone 200-200-20 mg/5 mL 30 mL (MAALOX,MYLANTA,MAG-AL PLUS) 30 mL ORAL q 4 H PRN magnesium hydroxide 400 mg/5 mL 30 mL (MOM) 30 mL ORAL DAILY PRN heparin 5,000 Units injection 5,000 Units SUBCUTANEOUS q 12 H haloperidol lactate 1 mg injection (HALDOL) 1 mg INTRAMUSCULAR q 6 H PRN amantadine HCl 100 mg cap(s) (SYMMETREL) 100 mg ORAL BID donepezil 20 mg tab(s) (ARICEPT) 20 mg ORAL AT BEDTIME potassium chloride ER 10 mEq tab(s) (K-DUR, KLOR-CON) 10 mEq ORAL AT BEDTIME primidone 50 mg tab(s) (MYSOLINE) 50 mg ORAL q 12 H cyanocobalamin 500 mcg (VITAMIN B-12) 500 mcg ORAL DAILY cholecalciferol 1,000 Units tab(s) (VITAMIN D3) 1,000 Units ORAL DAILY INTERVAL HISTORY OF PRESENT ILLNESS: Non verbal and agitation present Objective PHYSICAL EXAM: Patient Vitals for the past 24 hrs: BP Temp Temp src Pulse Resp SpO2 Weight 05/02/18 0821 107/67 36.4 ?C (97.5 ?F) Oral 65 18 97 % - 05/02/18 0300 - - - - - - 68.9 kg (151 lb 14.4 oz) 05/01/18 195 97/56 36.3 ?C (97.3 ?F) Oral (!) 58 16 97 % - Body mass index is 19.5 kg/m?. GENERAL: Alert SKIN: Negative OROPHARYNX: negative NECK: No jugulovenous distention, Supple LUNGS: Lungs clear to auscultation. Good diaphragmatic excursion. CARDIAC: Normal S1 and S2; no rubs, murmurs, or gallops ABDOMEN: Soft, nontender EXTREMITIES: No ulcers NEURO: Alert, oriented X 3 PULSES: 2+ radial, 2+ carotid DATA: Diagnostic tests reviewed for today's visit: CBC, Coags, BMP, Mg, Phos Assessment/Plan Acute exacerbation of chronic schizoaffective schizophrenia (HCC) POA: Yes ? Schizophrenia, chronic condition with acute exacerbation (HCC) POA: Yes ? Parkinson's disease ? Acute psychosis ? ? Plan: Resume home medication Labs to follow DVT prophylaxs ? Medication and Non-Pharmacologic VTE Prophylaxis/Anticoagulants Anticoagulant AND Antiplatelet Medications Start Dose Route Frequency Ordered Stop 04/29/18 1000 heparin 5,000 Units injection (Medical At Risk ) 5,000 Units SUBCUTANEOUS EVERY 12 HOURS 04/29/18 0955 -- 04/29/18 1015 vte non-pharmacologic prophylaxis contraindicated (mo,oh) 04/29/18 1015 activity - mobilize patient (mo,ma) 04/29/18 1000 vte pharmacologic prophylaxis contraindicated (mo,oh) 04/29/18 1000 vte non-pharmacologic prophylaxis - none indicated (mo,ma) VTE Prophylaxis: VTE prophylaxis appropriate SIGNATURE: Vikram Washington MD PATIENT NAME: Sherita Jurado DATE: May 02, 2018 TIME: 10:25 AM PAGER/CONTACT #: [phone] PROGRESS Observed: 05/02/2018 Status: COMPLETED Source: [facility] 9:12 AM [facility] OTHER CAMPUS REPOSITORY [facility] ID: [id number] Author: Josse Balderrama Service: Psychiatry Author Type: Physician Type: Progress Notes Filed: 05/05/2018 9:34 AM Note Text: PROGRESS NOTE BEHAVIORAL HEALTH SERVICE DATE: 05/02/2018 SERVICE TIME: 9:12 AM The Interdisciplinary team met and reviewed treatment goals and discharge planning. Subjective Guarded and suspicious. Secluded to self; no exit seeking. Objective PHYSICAL EXAM: BP 107/67 Pulse 65 Temp 36.4 ?C (97.5 ?F) (Oral) Resp 18 Ht 188 cm (6' 2) Wt 68.9 kg (151 lb 14.4 oz) SpO2 97% BMI 19.50 kg/m? MENTAL STATUS EXAMINATION: Appearance: Disheveled Behavior: Disorganized Orientation: Person Speech/Language: Soft Mood/Affect: Suspicious Thought Form: Loose Associations Thought Content: Delusions: Bizarre Suicidal Ideations: No suicidal ideation, intent or plan. Homicidal Ideations: No homicidal ideation, intent or plan. Insight: Insight is absent Judgment: Grossly impaired Memory/Cognition: Moderately Impaired Psychomotor: Tremors NEW PROBLEMS ON UNIT SINCE LAST ENCOUNTER: None Current hospital medications: carboxymethylcellulose sodium 1 Drop (CELLUVISC) 1 Drop BOTH EYES PRN carbidopa-levodopa 25-100 mg 2 tablet (SINEMET 25-100) 2 tablet ORAL q 4 H while awake QUEtiapine 75 mg tab(s) (SEROquel) 75 mg ORAL BID acetaminophen 650 mg tab(s) (TYLENOL) 650 mg ORAL q 6 H PRN aluminum-magnesium hydroxide-simethicone 200-200-20 mg/5 mL 30 mL (MAALOX,MYLANTA,MAG-AL PLUS) 30 mL ORAL q 4 H PRN magnesium hydroxide 400 mg/5 mL 30 mL (MOM) 30 mL ORAL DAILY PRN heparin 5,000 Units injection 5,000 Units SUBCUTANEOUS q 12 H haloperidol lactate 1 mg injection (HALDOL) 1 mg INTRAMUSCULAR q 6 H PRN amantadine HCl 100 mg cap(s) (SYMMETREL) 100 mg ORAL BID donepezil 20 mg tab(s) (ARICEPT) 20 mg ORAL AT BEDTIME potassium chloride ER 10 mEq tab(s) (K-DUR, KLOR-CON) 10 mEq ORAL AT BEDTIME primidone 50 mg tab(s) (MYSOLINE) 50 mg ORAL q 12 H cyanocobalamin 500 mcg (VITAMIN B-12) 500 mcg ORAL DAILY cholecalciferol 1,000 Units tab(s) (VITAMIN D3) 1,000 Units ORAL DAILY DATA: Diagnostic tests reviewed for today's visit: Most recent labs and imaging results. Assessment/Plan DIAGNOSIS: 1. PRIMARY: Schizophrenia Paranoid Type with acute exacerbation 2. Dementia with behavioral problems GAF: -30-21 Behavior is considerably influenced by delusions or hallucination or serious impairment in communication or judgment RISK ASSESSMENT: Suicide: low Homicide: low Deliberate Self-Harm: low Aggression: low Imminent Physical Self Impairment: low INFORMED CONSENT: Yes, completed with the Guardian. Discussed the risks, benefits and alternatives to the medication(s) recommended. Consent was given. INTERVENTION: Biological: see orders Psychological: group and behavioral therapy Social: new placement DISCHARGE PLANNING: when stable SIGNATURE: Diana Casillas APRN.CNP PATIENT NAME: Sherita Jurado DATE: May 02, 2018 TIME: 9:12 AM PAGER/CONTACT#: [phone] I saw the patient and have read and reviewed the RESIDENT INSPECTOR's note and findings. I have discussed the RESIDENT INSPECTOR's findings and plan as documented in the RESIDENT INSPECTOR's note. Josse Balderrama MD ALLIED HEALTH Observed: 05/02/2018 Status: COMPLETED Source: [facility] 8:39 AM CLINIC OTHER CAMPUS REPOSITORY O ID: [id number] Author: AGUSTÍN Parsons Service: Behavioral Health Author Type: Dance Movement Therapist Type: Allied Health Filed: 05/02/2018 1:39 PM Note Text: PROGRESS NOTE BEHAVIORAL HEALTH Topic of Note: Three Day Note SERVICE DATE: 05/02/2018 SERVICE TIME: 1:31 PM Subjective: Sherita has been refusing Groups coming only to 3/4 of a session his first day on the Unit. He has been pleasant with this race and sports book writer when up and about on the unit. He has however been demanding and Uncooperative With CPNA's having got in rage this AM because he wanted More socksantibiotic this point in time he presents as making little if any progress Moving toward Discharge planning goals. He will continue to be invited and offered 1:1 iza if that may be an opening for Increasing cooperation with therapy.? Objective: The following table accounts the patient's attendance (minutes attended / minutes offered) for all offered ET and other group sessions since last report: Date ET / Group topics Attendence Comments 04/30/18 MT: dancing, harmony, and self-awareness 0 ?sleeping 04/30/18 MT: inner wisdom meditation 045 sleeping 05/01/18 MT: musical scale; highs AND lows 045 refused 05/02/18 DMT:Friday stretch and gila river of support 0 Was with staff getting medical treatment for severe dermatitis and the went to sleep did not come to group ? Pt also receives daily 1:1 symptom/mood check-in and/or good morning group for orientation/schedule. ? Assessment:Sherita demonstrates a continued need for expressive therapies while in the hospital. ? Plan: Pt will continue to be offered expressive therapies 5x per week to: ? ? Increase socialization and positive support systems Improve communication and emotional expression Channel energy feelings into constructive outlets Explore creative expression Relaxation skills through creative and body centerd movement exploration increase a sense of self and grounding for balance and appropriate expression of feelings particularly his anger. Dance movement Therapy/ Spiritual Care interventions may include, but are not limited to: ? Therapeutic arts ? Relaxation/stress management ? Therapeutic fitness ? Identifying positive coping skills ? Reminiscing ? Self Awareness/self expression exercises ? Structured Socialization [place] DMT: Dance Movement Therapy MT: Music Therapy DR: Dining Room SW: Mathematics Faculty Member ET: Expressive Therapy RT: Recreation Therapy ? SIGNATURE: AGUSTÍN Parsons PATIENT NAME: Sherita Jurado DATE: May 02, 2018 TIME: 8:39 AM PAGER/CONTACT #: NURSING PROG Observed: 05/01/2018 Status: COMPLETED Source: [facility] 10:52 PM CLINIC OTHER CAMPUS REPOSITORY HNO ID: [id number] Author: Geraldine (Rn) JOSE Olguin Service: (none) Author Type: Registered Nurse Type: Nursing Progress Note Filed: 05/02/2018 2:57 AM Note Text: Nursing Progress Note Patient Name: Sherita Jurado Patient Location: / [place]-* Daily Note: 1955 Pt in bed asleep; no s/s of distress or pain. 2054 administered meds without difficulty. Pt AOx1, denied pain, cooperative with care, blunted affect, withdrawn. 2300 Pt put AND out of bed asking if it was lunchtime. He was easily redirected AND returned to bed. 0115 Pt came out of his room, looking at the clock. He did not respond when asked if he needed something. 0200 Pt came out of his room asking if it was almost time for breakfast AND returned to his room when told it was 2:00 in the morning. 0240 Pt came out to [address] AND had a snack of norm crackers AND bishop kendall AND then returned to his room. This note was completed by: GERALDINE OLGUIN RN NURSING PROG Observed: 05/01/2018 Status: COMPLETED Source: [facility] 11:34 AM CLINIC OTHER CAMPUS REPOSITORY O ID: [id number] Author: Priscilla Watts) JOSE Aaron Service: Nursing Author Type: Registered Nurse Type: Nursing Progress Note Filed: 05/01/2018 8:32 PM Note Text: Nursing Progress Note Patient Name: Sherita Jurado Patient Location: / [place]-* Daily Note: Patient is alert and oriented x2. He was up this am for breakfast. He is selectively nonverbal, but able to answer simple questions. He took his medication easily this am. He was incontinent, but able to help change his brief with a little assistance. He lays in bed with covers or pillows over his head. 0940:Patient was seen laying on the floor, he acknowledged that he put himself on the floor. Patient has a past history of putting self on the floor, no injuries were noted. 1100:Patient is in the room taking pants off. 1130:He put his pants and socks on with assistance. 1400:Patient came out in the hallway and layed self on the floor. This note was completed by: Priscilla Aaron RN PROGRESS Observed: 05/01/2018 Status: COMPLETED Source: [facility] 10:03 AM CLINIC OTHER CAMPUS REPOSITORY O ID: [id number] Author: Josse Balderrama Service: Psychiatry Author Type: Physician Type: Progress Notes Filed: 05/05/2018 9:34 AM Note Text: PROGRESS NOTE BEHAVIORAL HEALTH SERVICE DATE: 05/01/2018 SERVICE TIME: 10:03 AM The Interdisciplinary team met and reviewed treatment goals and discharge planning. Subjective Secluded to self. Guarded and suspicious on approach. Severe problems with impulse control. Objective PHYSICAL EXAM: BP 120/74 Pulse 66 Temp 36.7 ?C (98.1 ?F) (Oral) Resp 16 Ht 188 cm (6' 2) Wt 72.8 kg (160 lb 6.4 oz) SpO2 97% BMI 20.59 kg/m? MENTAL STATUS EXAMINATION: Appearance: Casually dressed Behavior: Disorganized Orientation: Person Speech/Language: Soft and Slow Mood/Affect: Suspicious Thought Form: Loose Associations Thought Content: Delusions: Bizarre Suicidal Ideations: No suicidal ideation, intent or plan. Homicidal Ideations: No homicidal ideation, intent or plan. Insight: Insight is absent Judgment: Grossly impaired Memory/Cognition: Moderately Impaired Psychomotor: Tremors NEW PROBLEMS ON UNIT SINCE LAST ENCOUNTER: None Current hospital medications: carbidopa-levodopa 25-100 mg 2 tablet (SINEMET 25-100) 2 tablet ORAL q 4 H while awake QUEtiapine 75 mg tab(s) (SEROquel) 75 mg ORAL BID acetaminophen 650 mg tab(s) (TYLENOL) 650 mg ORAL q 6 H PRN aluminum-magnesium hydroxide-simethicone 200-200-20 mg/5 mL 30 mL (MAALOX,MYLANTA,MAG-AL PLUS) 30 mL ORAL q 4 H PRN magnesium hydroxide 400 mg/5 mL 30 mL (MOM) 30 mL ORAL DAILY PRN heparin 5,000 Units injection 5,000 Units SUBCUTANEOUS q 12 H haloperidol lactate 1 mg injection (HALDOL) 1 mg INTRAMUSCULAR q 6 H PRN amantadine HCl 100 mg cap(s) (SYMMETREL) 100 mg ORAL BID carboxymethylcellulose sodium 1 Drop (CELLUVISC) 1 Drop BOTH EYES QID donepezil 20 mg tab(s) (ARICEPT) 20 mg ORAL AT BEDTIME potassium chloride ER 10 mEq tab(s) (K-DUR, KLOR-CON) 10 mEq ORAL AT BEDTIME primidone 50 mg tab(s) (MYSOLINE) 50 mg ORAL q 12 H cyanocobalamin 500 mcg (VITAMIN B-12) 500 mcg ORAL DAILY cholecalciferol 1,000 Units tab(s) (VITAMIN D3) 1,000 Units ORAL DAILY DATA: Diagnostic tests reviewed for today's visit: Most recent labs and imaging results. Assessment/Plan DIAGNOSIS: 1. PRIMARY: Schizophrenia Paranoid Type with acute exacerbation 2. Dementia with behavioral problems GAF: -30-21 Behavior is considerably influenced by delusions or hallucination or serious impairment in communication or judgment RISK ASSESSMENT: Suicide: low Homicide: low Deliberate Self-Harm: moderate Aggression: low Imminent Physical Self Impairment: low INFORMED CONSENT: Yes, completed with the Guardian. Discussed the risks, benefits and alternatives to the medication(s) recommended. Consent was given. INTERVENTION: Biological: see orders Psychological: group and behavioral therapy Social: new placement DISCHARGE PLANNING: when stable SIGNATURE: Diana Casillas APRN.CNP PATIENT NAME: Sherita Jurado DATE: May 01, 2018 TIME: 10:03 AM PAGER/CONTACT#: [phone] I saw the patient and have read and reviewed the RESIDENT INSPECTOR's note and findings. I have discussed the RESIDENT INSPECTOR's findings and plan as documented in the RESIDENT INSPECTOR's note. Josse Balderrama MD NURSING PROG Observed: 04/30/2018 Status: COMPLETED Source: [facility] 11:58 PM CLINIC OTHER CAMPUS REPOSITORY HNO ID: [id number] Author: Geraldine SpencerRn) JOSE Olguin Service: (none) Author Type: Registered Nurse Type: Nursing Progress Note Filed: 05/01/2018 1:34 AM Note Text: Nursing Progress Note Patient Name: Sherita Jurado Patient Location: [address]/[facility]-* Daily Note: 1940 Pt walking in hallway from DR to his room. [address] 2029 Pt returned to his room. 2129 administered meds without difficulty. Pt AOx1, denied pain, cooperative with care, blunted affect, withdrawn. 0 Pt sleeping; no s/s of distress or pain. This note was completed by: GERALDINE OLGUIN RN NURSING PROG Observed: 04/30/2018 Status: COMPLETED Source: [facility] 11:22 AM CLINIC OTHER CAMPUS REPOSITORY O ID: [id number] Author: Priscilla (Rn) JOSE Aaron Service: Nursing Author Type: Registered Nurse Type: Nursing Progress Note Filed: 04/30/2018 6:16 PM Note Text: Nursing Progress Note Patient Name: Sherita Jurado Patient Location: [address]-* Daily Note:Patient is alert and oriented x 1. He refused his medication this am. He would not open his eyes, or follow any commands, and was nonverbal. He refused to get up for breakfast. He did allow me to take his blood pressure, but would not open mouth or let me do a assessment. Tremors noted. 1230:He awoken and came out for lunch. He took medication, and went back to bed. 1700:Patient was compliant with medications throughout the day, he refuses his eye drops. He comes out for his meals, and returns to room afterwards. He is sleeping throughout the day. He has a flat affect and a depressed mood. This note was completed by: Priscilla Aaron RN PROGRESS Observed: 04/30/2018 Status: COMPLETED Source: [facility] 9:59 AM CLINIC OTHER CAMPUS REPOSITORY O ID: [id number] Author: Josse Balderrama Service: Psychiatry Author Type: Physician Type: Progress Notes Filed: 04/30/2018 11:41 AM Note Text: PROGRESS NOTE BEHAVIORAL HEALTH SERVICE DATE: 04/30/2018 SERVICE TIME: 9:59 AM The Interdisciplinary team met and reviewed treatment goals and discharge planning. Subjective Has been less secluded to his room and believes that people are talking about him. Mood and affect are blunted. Bizarre affect. Objective PHYSICAL EXAM: BP 93/54 Pulse (!) 55 Temp 37.1 ?C (98.8 ?F) (Oral) Resp 16 Ht 188 cm (6' 2) Wt 72.8 kg (160 lb 6.4 oz) SpO2 97% BMI 20.59 kg/m? MENTAL STATUS EXAMINATION: Appearance: Casually dressed Behavior: Disorganized Orientation: Person Speech/Language: Soft and Slow Mood/Affect: Suspicious Thought Form: Tangential Thought Content: Vague Suicidal Ideations: No suicidal ideation, intent or plan. Homicidal Ideations: No homicidal ideation, intent or plan. Insight: Insight is absent Judgment: Grossly impaired Memory/Cognition: Moderately Impaired Psychomotor: Tremors NEW PROBLEMS ON UNIT SINCE LAST ENCOUNTER: None Current hospital medications: carbidopa-levodopa 25-100 mg 2 tablet (SINEMET 25-100) 2 tablet ORAL q 4 H while awake acetaminophen 650 mg tab(s) (TYLENOL) 650 mg ORAL q 6 H PRN aluminum-magnesium hydroxide-simethicone 200-200-20 mg/5 mL 30 mL (MAALOX,MYLANTA,MAG-AL PLUS) 30 mL ORAL q 4 H PRN magnesium hydroxide 400 mg/5 mL 30 mL (MOM) 30 mL ORAL DAILY PRN heparin 5,000 Units injection 5,000 Units SUBCUTANEOUS q 12 H haloperidol lactate 1 mg injection (HALDOL) 1 mg INTRAMUSCULAR q 6 H PRN amantadine HCl 100 mg cap(s) (SYMMETREL) 100 mg ORAL BID carboxymethylcellulose sodium 1 Drop (CELLUVISC) 1 Drop BOTH EYES QID donepezil 20 mg tab(s) (ARICEPT) 20 mg ORAL AT BEDTIME potassium chloride ER 10 mEq tab(s) (K-DUR, KLOR-CON) 10 mEq ORAL AT BEDTIME primidone 50 mg tab(s) (MYSOLINE) 50 mg ORAL q 12 H QUEtiapine 50 mg tab(s) (SEROquel) 50 mg ORAL BID cyanocobalamin 500 mcg (VITAMIN B-12) 500 mcg ORAL DAILY cholecalciferol 1,000 Units tab(s) (VITAMIN D3) 1,000 Units ORAL DAILY DATA: Diagnostic tests reviewed for today's visit: Most recent labs and imaging results. Assessment/Plan DIAGNOSIS: 1. PRIMARY: Schizophrenia Paranoid Type with acute exacerbation GAF: -30-21 Behavior is considerably influenced by delusions or hallucination or serious impairment in communication or judgment RISK ASSESSMENT: Suicide: low Homicide: low Deliberate Self-Harm: low Aggression: low Imminent Physical Self Impairment: low INFORMED CONSENT: Yes, completed with the Guardian. Discussed the risks, benefits and alternatives to the medication(s) recommended. Consent was given. INTERVENTION: Biological: see orders Psychological: group and behavioral therpay Social: back to facility DISCHARGE PLANNING: when stable SIGNATURE: Diana Casillas APRN.CNP PATIENT NAME: Sherita Jurado DATE: April 30, 2018 TIME: 9:59 AM PAGER/CONTACT#: [phone] I saw the patient and have read and reviewed the RESIDENT INSPECTOR's note and findings. I have discussed the RESIDENT INSPECTOR's findings and plan as documented in the RESIDENT INSPECTOR's note. Josse Balderrama MD LIPID PANEL, BASIC Collected: 04/30/2018 Status: F Source: [facility] 6:30 AM CLINIC OTHER CAMPUS REPOSITORY TYPE CODE TESTS RESULT OUT OF REFERENCE UNITS RANGE LAB CHOL <200 mg/dL Cholesterol 157 Result Comment: <200 mg/dL, Desirable 200-239 mg/dL, Borderline high >239 mg/dL, High LAB TRIGLY <150 mg/dL Triglyceride 82 Result Comment: <150 mg/dL, Normal 150-199 mg/dL, Borderline high 200-499 mg/dL, High >499 mg/dL, Very high LAB HDL >39 mg/dL HDL-Cholesterol 49 Result Comment: 40-59 mg/dL, Acceptable >59 mg/dL, High: Negative risk factor for coronary heart disease <40 mg/dL, Low: Positive risk factor for coronary heart disease LAB LDL <100 mg/dL LDL-Cholesterol 92 Result Comment: <100 mg/dL, Optimal 100-129 mg/dL, Near optimal/above optimal 130-159 mg/dL, Borderline high 160-189 mg/dL, High >189 mg/dL, Very high Secondary prevention optimal LDL Cholesterol levels are recommended to be < 70 mg/dL LAB NONHDL <130 mg/dL Non HDL Cholesterol 108 Result Comment: <130 mg/dL, Optimal 130-159 mg/dL, Near optimal/above optimal 160-189 mg/dL, Borderline high 190-219 mg/dL, High >219 mg/dL, Very high Secondary prevention optimal non HDL Cholesterol levels are recommended to be < 100 mg/dL LAB FT hrs Fasting Time Unknown LAB VLDL <30 mg/dL VLDL Cholesterol 16 LAB TCHDL <5.10 TC:HDL Ratio 3.20 LAB LDLHDL <2.54 LDL:HDL Ratio 1.88 Result Comment: Reference: 1. National Cholesterol Education Program ATP III Guideline At-A-Glance Quick Desk Reference: National Heart, Lung, and Blood [place]. National Institutes of Health. 2001: NIH Publication No. 01-3305. 2. An International Atherosclerosis Society position paper: global recommendations for the management of dyslipidemia: executive summary, Atherosclerosis. 2014: 232(2):410-413. Performed By: #### LIPB #### [facility] [address] [place], [place] [address] HEMOGLOBIN A1C Collected: 04/30/2018 Status: F Source: [facility] 6:30 AM CLINIC OTHER CAMPUS REPOSITORY TYPE CODE TESTS RESULT OUT OF REFERENCE UNITS RANGE LAB HGBA1C 4.3-5.6 % Hemoglobin A1c 4.6 Result Comment: [place] Diabetes Association guidelines indicate that patients with HgbA1c in the range 5.7-6.4% are at increased risk for development of diabetes, and intervention by lifestyle modification may be beneficial. HgbA1c greater or equal to 6.5% is considered diagnostic of diabetes. LAB HBA0 mg/dL Est. Average Glucose 85 Result Comment: eAG: (Estimated average glucose) is a calculated value from HgbA1c and is customer service representative of the average blood glucose level in the last 2-3 month period. Performed By: #### HBA1C #### [facility] [address] [place], [place] [address] [phone] CONSULT PROG Observed: 04/30/2018 Status: COMPLETED Source: [facility] 6:06 AM CLINIC OTHER CAMPUS REPOSITORY HNO ID: [id number] Author: Vikram Washington Service: General Internal Medicine Author Type: Physician Type: Consult Progress Note Filed: 04/30/2018 11:47 PM Note Text: CONSULT PROGRESS NOTE SERVICE DATE: 04/30/2018 SERVICE TIME: 8 am CONSULTING SERVICE: medicine Subjective INTERVAL HPI: known parninson' s disease patient admitted for acute psyhcosis Current hospital medications: carbidopa-levodopa 25-100 mg 2 tablet (SINEMET 25-100) 2 tablet ORAL q 4 H while awake acetaminophen 650 mg tab(s) (TYLENOL) 650 mg ORAL q 6 H PRN aluminum-magnesium hydroxide-simethicone 200-200-20 mg/5 mL 30 mL (MAALOX,MYLANTA,MAG-AL PLUS) 30 mL ORAL q 4 H PRN magnesium hydroxide 400 mg/5 mL 30 mL (MOM) 30 mL ORAL DAILY PRN heparin 5,000 Units injection 5,000 Units SUBCUTANEOUS q 12 H haloperidol lactate 1 mg injection (HALDOL) 1 mg INTRAMUSCULAR q 6 H PRN amantadine HCl 100 mg cap(s) (SYMMETREL) 100 mg ORAL BID carboxymethylcellulose sodium 1 Drop (CELLUVISC) 1 Drop BOTH EYES QID donepezil 20 mg tab(s) (ARICEPT) 20 mg ORAL AT BEDTIME potassium chloride ER 10 mEq tab(s) (K-DUR, KLOR-CON) 10 mEq ORAL AT BEDTIME primidone 50 mg tab(s) (MYSOLINE) 50 mg ORAL q 12 H QUEtiapine 50 mg tab(s) (SEROquel) 50 mg ORAL BID cyanocobalamin 500 mcg (VITAMIN B-12) 500 mcg ORAL DAILY cholecalciferol 1,000 Units tab(s) (VITAMIN D3) 1,000 Units ORAL DAILY Objective PHYSICAL EXAM: Physical Exam Performed: GENERAL: Alert, no distress, cooperative HEAD/SINUSES: No significant findings EARS: External ears normal, canals clear NOSE: Nares normal. Septum midline. OROPHARYNX: Negative NECK: No jugulovenous distention, Supple BACK: Back symmetric, Normal curvature, ROM normal, No CVAT. LUNGS: Lungs clear to auscultation, Good diaphragmatic excursion CARDIAC: Normal S1 and S2; no rubs, murmurs, or gallops ABDOMEN: Abdomen soft, non-tender, BS normal, No masses or organomegaly EXTREMITIES: Extremities normal, no deformities, edema, clubbing or skin discoloration. Good capillary refill., No ulcers NEURO: Negative, psychosis PULSES: 2+ radial, 2+ carotid BP 93/54 Pulse 55 Temp (Src) 98.8 (Oral) Resp 16 Ht 6' 2 (1.88m) Wt 160 lb 6.4 oz (72.8kg) SpO2 97% BMI 20.59 kg/(m2). DATA: Diagnostic tests reviewed for today's visit: CBC, Coags, BMP, Mg, Phos Recent Labs 04/29/18 1307 04/28/18 1702 WBC 5.22 6.05 HB 13.9 15.9 HCT 41.6 47.9 PLT 212 253 NA 138 141 K 4.1 4.4 CHLOR 102 101 CO2 26 29 BUN 29* 30* CREAT 0.63* 0.69* GLUC 110* 71* CA 9.0 9.3 Impression/Recommendations Acute exacerbation of chronic schizoaffective schizophrenia (HCC) POA: Yes Schizophrenia, chronic condition with acute exacerbation (HCC) POA: Yes Parkinson's disease Acute psychosis Plan: Resume home medication Labs to follow DVT prophylaxs SIGNATURE: Vikram Washington MD PATIENT NAME: Sherita Jurado DATE: April 30, 2018 TIME: 6:06 AM PAGER: [phone] NURSING PROG Observed: 04/29/2018 Status: COMPLETED Source: [facility] 8:33 PM CLINIC OTHER CAMPUS REPOSITORY O ID: [id number] Author: Michelle (Rn) JOSE Lozada Service: (none) Author Type: Registered Nurse Type: Nursing Progress Note Filed: 04/30/2018 6:11 AM Note Text: Nursing Progress Note Patient Name: Sherita Jurado Patient Location: [place]-403/ [place]-* Daily Note: Patient AANDOx2 with disorientation to time, although he was able to verbalize correct president. No c/o pain. Tremors noted, pt has parkinsonism. No agitated or combative behaviors present. Pt is selectively nonverbal, speech is clear AND soft. Eye contact average. Drooling noted. Ambulates independently. Took HS meds whole with water/ gingerale, meds were put on a spoon for patient. Was out to day area for short period of time, ate snack and went back to room. Q15 minute safety rounds remain. 0101: pt sleeping no s/s of distress 0346: remains sleeping 0509: pt sleeping no needs 0607: incontinence care provided; no other needs. This note was completed by: Michelle Lozada RN CBC AND DIFFERENTIAL Collected: 04/29/2018 Status: F Source: [facility] 1:07 PM CLINIC OTHER CAMPUS REPOSITORY TYPE CODE TESTS RESULT OUT OF REFERENCE UNITS RANGE LAB WBC 3.70-11.00 k/uL WBC 5.22 LAB RBC 4.20-6.00 m/uL RBC 4.20 LAB HGB 13.0-17.0 g/dL Hemoglobin 13.9 LAB HCT 39.0-51.0 % Hematocrit 41.6 LAB MCV 80.0-100.0 fL MCV 99.0 LAB MCH 26.0-34.0 pG MCH 33.1 LAB MCHC 30.5-36.0 g/dL MCHC 33.4 LAB RDWCV 11.5-15.0 % RDW-CV 12.6 LAB PLTCT 150-400 k/uL Platelet Count 212 LAB MPV 9.0-12.7 fL MPV 9.5 LAB ANEUT % Neut% 74.0 LAB AANEUT 1.45-7.50 k/uL Abs Neut 3.86 LAB ALYMP % Lymph% 17.6 LAB AALYMP 1.00-4.00 k/uL Low Abs Lymph 0.92 LAB AMONO % Ceiba% 6.5 LAB AAMONO <0.87 k/uL Abs Ceiba 0.34 LAB AEOS % Eosin% 1.1 LAB AAEOS <0.46 k/uL Abs Eosin 0.06 LAB ABASO % Baso% 0.8 LAB AABASO <0.11 k/uL Abs Baso 0.04 LAB DTYP DTYPE Auto Diff COMP METABOLIC PANEL Collected: 04/29/2018 Status: F Source: [facility] 1:07 PM CLINIC OTHER CAMPUS REPOSITORY TYPE CODE TESTS RESULT OUT OF REFERENCE UNITS RANGE LAB TP 6.0-8.4 g/dL Protein, Total 7.1 LAB ALB 3.5-5.0 g/dL Albumin 3.6 LAB CA 8.5-10.5 mg/dL Calcium, Total 9.0 LAB TBIL 0.2-1.3 mg/dL Bilirubin, Total 0.7 LAB ALKP 38-113 U/L Alkaline Phosphatase 78 LAB AST 7-40 U/L AST 19 LAB GLU 65-100 mg/dL Glucose High 110 LAB BUN 8-25 mg/dL BUN High 29 LAB CRET 0.7-1.4 mg/dL Low Creatinine 0.63 LAB NA 135-146 mmol/L Sodium 138 LAB K 3.5-5.0 mmol/L Potassium 4.1 LAB CL 98-110 mmol/L Chloride 102 LAB CO2 23-32 mmol/L CO2 26 LAB AGAP 0-15 mmol/L Anion Gap 10 LAB ALT 5-50 U/L ALT 18 CASE MGT INIT Observed: 04/29/2018 Status: COMPLETED Source: [facility] 12:10 PM CLINIC OTHER CAMPUS REPOSITORY HNO ID: [id number] Author: Silva Bobby (Sw) Service: Social Work Author Type: Mathematics Faculty Member Type: Care Mgt Initial Assessment Filed: 04/30/2018 11:31 AM Note Text: BEHAVIORAL HEALTH SOCIAL WORK/CARE MANAGEMENT ASSESSMENT AND DISCHARGE PLAN SERVICE DATE: 04/29/2018 SERVICE TIME: 12:10 PM Reason for Admission: Pt was admitted to the unit with increased behaviors. Pt resides at [facility]. It was reported pt has been becoming increasingly more agitated and combative. He has been disrobing and urinating and defecating in appropriate places. He also has been going into other resident's rooms. It also was reported by has been delusional and paranoid. He believes that his shoes were talking to him and his mattress is encoded with messages from [employer]. Also, he has been throwing objects into the toilet like pudding, cups, and his briefs. Pt has been at the nursing facility since 12/30. Legal Status: Involuntary - Awaiting Guardian Consent Important Contacts: Legal Guardian Name: Conrad Govea: [phone] Does the patient/customer service representative consent to contact with the above at this time? Yes Information obtained from: Chart Medical Staff Prior Social Work assessment Legal guardian Referred by: Medical Team Living Arrangements Prior to Admission: Extended/Intermediate Care Facility: [facility] Prior to Admission, Patient was Living with: N/A - Patient From Facility Marital Status: Single Children (including quality of relationship): Patient does not have any children Sexual Orientation: Heterosexual SOCIAL HISTORY Sherita Jurado was born and raised in [place] by his mother. He has 1 brother and 1 sister. He is estranged from his family members. 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 Yes, but there was no admission within the past 30 days. 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 preferred language, literacy, gender identity, physical disability such as deaf or blind, etc)? No, Patient/Centerless Grinder Operator Denies Are there practices or beliefs that may affect or influence treatment? No, Patient/Centerless Grinder Operator Denies Patient Strengths/Protective Factors (Minimum of Two): Able to Communicate Needs Legal Guardian FAMILY PSYCHIATRIC HISTORY Patient/Centerless Grinder Operator Denies DISCHARGE RECOMMENDATIONS: Relinkage With Previous Providers Patient/Centerless Grinder Operator Agreeable With Discharge Recommendations At This Time? Yes FREEDOM OF CHOICE EXPLAINED: [facility]-owned/affiliated facilities and agencies have been identified NEEDS PRIOR TO DISCHARGE: Waiting for: Psychiatric Stabilization KEPRO Photographic Enlarger Operator ANDREAAS Determination Level of Care Patient/Family/Centerless Grinder Operator to Choose Facility/Agency Senior Care Bed A Facility/Agency to Accept Patient OBSTACLES TO TREATMENT/POST-DISCHARGE CHALLENGES: Mental Status SUMMARY: Spoke with admissions at [facility] regarding pt returning at discharge. She stated the manager social services has been trying to talk with the guardian for a while to discuss finding another group home that would be better able to manage pts behaviors but the guardian hasn't returned the social workers phone calls. They really feel pt needs to be placed in a different nursing facility that is able to manage his behaviors. Inquired if the manager social services has completed the Significant Change PAS; she will have the manager social services call back. Spoke with pts guardian to discuss discharge plans. He was already aware pt will need alternative placement. Discussed options. Suggested [facility], [facility], and [facility]. He was agreeable with those options. Will offer pt support and structure and assist with discharge plans. SIGNATURE: BRIELLE Baldwin PATIENT NAME: Sherita Jurado DATE: April 29, 2018 TIME: 12:10 PM NURSING PROG Observed: 04/29/2018 Status: COMPLETED Source: [facility] 11:27 AM CLINIC OTHER CAMPUS REPOSITORY O ID: [id number] Author: Radha (Rn) JOSE Otero Service: Nursing Author Type: Registered Nurse Type: Nursing Progress Note Filed: 04/29/2018 4:42 PM Note Text: Nursing Progress Note Patient Name: Sherita Jurado Patient Location: [place] [address]/[address] Daily Note: Patient admitted from [facility] for combative behaviors, disrobing, urinating in inappropriate places, stripping off clothing, making delusional statements thinking thinking his shoes were talking to him and his bed mattress was encoded with messages from the pentagon he needed to decipher. Patient A AND O x 2. Compliant with medications on unit. Was spitting while in bed; cup given and spit into cup. Attended group for short period of time. Will monitor patient's behaviors. Safety measures maintained. 1622 while doing rounds this nurse observed patient move from bed to laying on floor. This nurse repeatedly asking patient what he is doing and why he is laying on floor, patient is not answering this nurse. In no apparent distress at this time. 1640 Patient transferred into bed with assist of 3 staff members as patient was very limp and not bearing any weight. Laying in bed at this time. Bed alarm in place. This note was completed by: Radha Otero RN HISTORY PHYSICAL Observed: 04/29/2018 Status: COMPLETED Source: [facility] 10:50 AM CLINIC OTHER CAMPUS REPOSITORY O ID: [id number] Author: Josse Balderrama Service: Psychiatry Author Type: Physician Type: HANDP Filed: 04/30/2018 9:29 AM Note Text: HISTORY AND PHYSICAL BEHAVIORAL HEALTH SERVICE DATE: 04/29/2018 SERVICE TIME: 10:50 AM IDENTIFYING INFORMATION: Sherita Jurado is a 72 year old disabled male who lives at [facility] in [facility]. REASON FOR ADMISSION: Psychosis and Agitation Subjective HPI: Sherita presents for admission secondary to increased paranoia and psychosis. Per Intake: ? Sherita Jurado is a 72 year old male brought in to [facility] for increased agitation. Pt has been residing at [facility] since December 24, 2017. Pt has exhibited behaviors throughout the time he has been there but he has been increasingly become more bizarre, agitated AND aggressive. Today, pt began throwing his shoes in the hallway AND was stripping out of his clothing including his brief/depend. Pt then began urinating AND defecating on the floor. Pt will typically take his clothing off until he is naked but doesn't normally go to the bathroom on the floor. He was not able to be redirected AND walked into the room of another resident while naked thus scaring her. This other resident wound up falling due to her being shocked at him coming into her room. Pt will have auditory hallucinations at baseline but has been refusing to wear his black shoes because they are talking to him and telling him to strip out of his clothing. Pt is having delusions that his mattress is encrypted with notes from the [employer]. His belief was so intense that he wound up taking his mattress off his bed. Pt has been exhibiting bizarre behaviors such as not speaking AND throwing objects into the toilet. He will throw anything from his briefs to pudding cups into the toilet AND the staff have to regularly check to make sure that there isn't anything in there. Pt became more agitated today AND refused to take his medications. He knocked his medications out of the nurses hands AND continued to be irritable/agitated AND was medicated with IM Haldol. Pt is typically followed by Dr. Mg (psychaitrist) at the . He is diagnosed with Schizophrenia AND Parkinson's disease. He has continuous tremors in his hands AND arms. He ambulates ad cayetano AND usually without any assistive devices but will use a front wheeled walker at times when he is having increased tremors AND unsteadiness. He has dysphagia AND is on a regular texture diet with cut up meats, weighted silverware AND a cup with a straw. His baseline orientation is alert AND oriented x's2 (person AND place). He has a legal guardian, Barryodalis Govea (fagot heater helper). ? Pt has been cooperative while in the emergency room AND is responding to commands AND direction but is non-verbal. He won't even give the emergency room any non-verbal communications such as nodding his head. He is alert to self only, appears his stated age AND observed to have tremors. He was not able to be assessed via telephone due to his not talking. ? PSYCHIATRIC REVIEW OF SYMPTOMS: Unable to evaluate due to compromised mental status. MEDICAL REVIEW OF SYSTEMS: Cannot complete at this time PSYCHIATRIC HISTORY: Prior Diagnosis: Schizophrenia Current Psychiatrist: @ the facility Current Therapist: none Current Injection Molding Operator: none Last Hospitalization: 2017; Total Hospitalizations: 3 @ [facility] History of Suicide Attempts: Total: never Previous Discontinued Psychiatric Med Trials: Zyprexa, Haldol PAST MEDICAL HISTORY Diagnosis Date - Actinic keratosis - Breast lump LT breast; cavernous hemangioma/excised - Dizziness - Epidermoid cyst of skin - Falls - Lipoma of skin forearms and abdomen - Mammogram abnormal suspicious of cancer- referral made - Obesity - On retirement drug therapy - Palpitations - Parkinson disease (HCC) - Schizophrenia (HCC) - Tremor - Vitamin D deficiency HOME MEDICATIONS: No current facility-administered medications on file prior to encounter. Current Outpatient Prescriptions on File Prior to Encounter: QUEtiapine (SEROQUEL) 50 mg tablet Take 1 tablet by mouth twice daily. amantadine HCl (SYMMETREL) 100 mg capsule Take 1 capsule by mouth twice daily. carbidopa-levodopa (SINEMET) 25-100 mg per tablet Take 2 tablets by mouth every 4 hours while awake. carboxymethylcellulose (REFRESH CELLUVISC) 1 % ophthalmic solution Use 1 Drop in both eyes four times daily. donepezil (ARICEPT) 23 mg tablet Take 23 mg by mouth daily at bedtime. potassium chloride (K-TAB) 10 mEq tablet Take 10 mEq by mouth daily at bedtime. cholecalciferol (VITAMIN D) 1,000 unit tab tablet Take 1,000 Units by mouth once daily. MEDICATION ADHERENCE: Poor SUBSTANCE ABUSE HISTORY: Tobacco: No history of use or dependence. ETOH: No history of abuse or dependence. ILLICIT SUBSTANCE USE: None ALLERGIES Allergen Reactions - Goose Feathers Allen* Unknown - Zyprexa [Olanzapine] Unknown SOCIAL HISTORY: Born AND Raised in [place] Education: High school Employment: Disabled. Relationships: The patient currently is single Children: none Current Supports Include: guardian. Legal History: None Shinto Affiliations: None FAMILY HISTORY: No known psychiatric illness Objective VITALS: Ht 188 cm (6' 2) Wt 72.8 kg (160 lb 6.4 oz) BMI 20.59 kg/m? MENTAL STATUS EXAMINATION: Appearance: Disheveled Behavior: Withdrawn and Evasive Orientation: Person Speech/Language: Soft and Slow Mood/Affect: Suspicious Thought Form: Loose Associations Thought Content: Vague Suicidal Ideations: No suicidal ideation, intent or plan. Homicidal Ideations: No homicidal ideation, intent or plan. Insight: Insight is absent Judgment: Grossly impaired Memory/Cognition: Moderately Impaired Psychomotor: Tremors SUICIDE RISK ASSESSMENT APPLICABLE: No PHYSICAL EXAM: Height 188 cm (6' 2), weight 72.8 kg (160 lb 6.4 oz). GENERAL: Alert, no distress, cooperative. NEUROLOGIC: No gross abnormal findings including cranial nerves 2-12. MUSCULOSKELETAL: Normal muscle strength, Normal muscle tone and Tremors GAIT: Unsteady DATA: Diagnostic tests reviewed for today's visit: Most recent labs and imaging results. CT Brain (if indicated): TOXICOLOGY RESULTS FOR THE PAST 72 HOURS: Recent Labs 04/28/182033 UBENZ Negative UCOC2 Negative UOPI Negative UPCP Negative WBC (k/uL) Date Value 04/28/2018 6.05 Hematocrit (%) Date Value 04/28/2018 47.9 Platelet Count (k/uL) Date Value 04/28/2018 253 Sodium (mmol/L) Date Value 04/28/2018 141 Potassium (mmol/L) Date Value 04/28/2018 4.4 BUN (mg/dL) Date Value 04/28/2018 30 AST (U/L) Date Value 04/28/2018 26 ALT (U/L) Date Value 04/28/2018 20 TSH (uU/mL) Date Value 12/17/2017 2.690 Assessment/Plan DIAGNOSIS: 1. PRIMARY: Schizophrenia Paranoid Type with acute exacerbation GAF: -30- Behavior is considerably influenced by delusions or hallucination or serious impairment in communication or judgment INFORMED CONSENT: Yes, completed with the Guardian. Discussed the risks, benefits and alternatives to the medication(s) recommended. Consent was given. RISK ASSESSMENT: Suicide: Low Homicide: Low Deliberate Self-Harm: Low Aggression: Low Imminent Physical Self Impairment: Low PLAN: Medications: Will initiate and adjust his medications accordingly; will consult with IM for his medical issues and DVT precautions. Safety Precautions: falls, elopement and assault. Obtain Collateral From: Patient and guardian SIGNATURE: Diana Casillas APRN.DOUGHNUT DOUGH MIXER PATIENT NAME: Sherita Jurado DATE: April 29, 2018 TIME: 10:50 AM PAGER/CONTACT#: [phone] I saw the patient and have read and reviewed the RESIDENT INSPECTOR's note and findings. I have discussed the RESIDENT INSPECTOR's findings and plan as documented in the RESIDENT INSPECTOR's note. Josse Balderrama MD ALLIED HEALTH Observed: 04/29/2018 Status: COMPLETED Source: [facility] 9:18 AM CLINIC OTHER CAMPUS REPOSITORY HNO ID: [id number] Author: AGUSTÍN Parsons Service: Behavioral Health Author Type: Dance Movement Therapist Type: Allied Health Filed: 04/29/2018 3:59 PM Note Text: MINI-MENTAL STATUS EXAMINATION: Orientation: Willing and able to verbalize his name and respond That he is in the Hospital but refusing or presently unable to verbalize any more 2 Registrative: Able to repeat 3 objects on the first try not willing to engage in speaking At this time 0/3 Attention AND Calculation: Refusing but making Eye contact 0/5 Recall: Able to recall 3 objects 0/3 Language: Would not look at pages or read Close your eyes His last hospitalization on this unit 01/29 his Mini mental was 15/30 and depression scale 6/15 At this point in time he presents as increasingly withdrawn and unable/unwilling to engage or even consent to a conversation . His Mini mental can be attempted After a few days when he may be more compliant 07/21 TOTAL MMSE SCORE 6/30 GDS:Presenting as Very depressed and withdrawn today PERSONAL DE-ESCALATION PLAN BEHAVIORAL HEALTH SERVICE DATE: 04/29/2018 SERVICE TIME: 3:58 PM Personal De-Escalation Completed: No. Patient refused and presenting as mute and withdrawn but he did come to dance therapy this Am for 30 min in mtch he engagde fully in movement exploration a,mirroring, dancing and physically connecting with peers through eye contact, and hand clasps. he abrubtly left he sesion giving therapist a high 5. He then retire ( after eating) to his bed and refude group or to interact for assessment. he will be observed and documented daily on his flow sheets and a note on his rgression or progress will be placed in his chart every 3 days SIGNATURE: AGUSTÍN Parsons PATIENT NAME: Sherita Jurado DATE: April 29, 2018 TIME: 9:19 AM PAGER/CONTACT #: THERAPEUTIC PROGRAMMING ASSESSMENT SERVICE DATE: 04/29/2018 SERVICE TIME: RECOMMENDATIONS: Communication Skills Community Resources Exercise Expressive Therapy Individual Relaxation Self Awareness Sensory Stimulation spiritual support ACTIVITIES OF DAILY LIVING (Difficulty in the following ADL areas): Getting to places on time Managing your money Parenting Preparing your own meals Shopping for food/clothing Sleeping Taking care of your appearance Transportation Came from [facility] GENERAL OBSERVATIONS: Affect: Blunted, Bright and Constricted Alert Appearance: Unkempt Communication: Nonverbal withdrawn most of day except for high energy involvement in DMT session today Delusional Mood: Anxious, Apathetic, Depressed, Sad and Worried Oriented to: person, situation Reluctant, encouragement needed ASSESSMENT COMPLETED: No: Withdrawing and refusing to interact or answer questions for assesment Patient refused and was presenting as mute and withdrawn but he did come to dance therapy this AM for 30 min in which he engaged fully in movement exploration ,mirroring, dancing and physically connecting with peers through eye contact, and hand clasps. He abruptly left the session, giving therapist a high 5. He then retired ( after eating) to his bed and refused group or to interact for assessment. He will be observed and documented daily on his flow sheets and a note on his regression or progress will be placed in his chart every 3 days. He will be offered spiritual support based on his last assessment in January 2018 when he verbalized it was God to whom he turned for support. SIGNATURE: AGUSTÍN Parsons PATIENT NAME: Sherita Jurado DATE: April 29, 2018 TIME: 9:19 AM PAGER/CONTACT #: ED NOTE Observed: 04/29/2018 Status: COMPLETED Source: [facility] 3:20 AM [facility] OTHER [place] REPOSITORY HNO ID: [id number] Author: Rosibel SpencerRn) JOSE Baker Service: (none) Author Type: Registered Nurse Type: ED Notes Filed: 04/29/2018 3:29 AM Note Text: [facility] arrived in ED, received pt report, assumed care of pt, pt stable upon departure from ED ED NOTE Observed: 04/28/2018 Status: COMPLETED Source: [facility] 8:39 PM [facility] REPOSITORY HNO ID: [id number] Author: Rosibel Watts) Olivia, RN Service: (none) Author Type: Registered Nurse Type: ED Notes Filed: 04/28/2018 8:39 PM Note Text: Pt straight cathed and urine obtianed URINALYSIS Collected: 04/28/2018 Status: F Source: [facility] 8:34 PM CLINIC OTHER CAMPUS REPOSITORY TYPE CODE TESTS RESULT OUT OF RANGE REFERENCE UNITS LAB UCOL Yellow Color Yellow LAB [facility] Clear Clarity Clear LAB UGLUC Negative mg/dL Glucose, Urine Negative LAB UBIL Negative Bilirubin, Urine Negative LAB UKET Negative Ketones, Abnormal Urine 15 Alert LAB USPG 1.001-1.029 Specific [place], Ur 1.025 LAB UHGB Negative Abnormal Hemoglobin/Blood, Trace Alert Ur LAB UPH 5.0-8.0 pH 6.5 LAB UPROT Negative mg/dL Protein, Urine Negative LAB UUROB 0.2-1.0 High Urobilinogen 4.0 LAB UNITR Negative Nitrites Negative LAB ULKEST Negative Leukest Negative Performed By: #### UA, UAMIC, UTOX2 #### [facility] [address] [facility] [phone] URINE MICROSCOPIC Collected: 04/28/2018 Status: F Source: [facility] (FOR LAB USE ONLY) 8:34 PM CLINIC OTHER CAMPUS REPOSITORY TYPE CODE TESTS RESULT OUT OF REFERENCE UNITS RANGE LAB UWBC 0-5 /HPF WBC 0-5 LAB URBC 0-3 /HPF RBC 0-3 LAB UCAST 0 /LPF Cast SEE COMMENT Result Comment: 0 LAB UBACT 0 /HPF Abnormal Bacteria Alert Occasional LAB UEPI /HPF SEE Epithelial Cells COMMENT Result Comment: 0-5 Squamous Epithelial Cells Performed By: #### UA, UAMIC, UTOX2 #### [facility] [address] [place] [address] TOXICOLOGY SCREEN,UR Collected: 04/28/2018 Status: F Source: [facility] 8:34 PM CLINIC OTHER CAMPUS REPOSITORY TYPE CODE TESTS RESULT OUT OF REFERENCE UNITS RANGE LAB UPCP2 Negative Negative Phencyclidin e, Urine Result Comment: Cutoff threshold at 25 ng/mL. LAB UBENZ2 Negative Benzodiazepines, Ur Negative Result Comment: Cutoff threshold at 200 ng/mL. LAB UCOC2 Negative Cocaine, Negative Urine Result Comment: Cutoff threshold at 300 ng/mL. LAB UAMPH2 Negative Amphetamines, Urine Negative Result Comment: Cutoff threshold at 1000 ng/mL. LAB UTHC2 Negative Cannabinoids, Urine Negative Result Comment: Cutoff threshold at 50 ng/mL. LAB UOPI2 Negative Opiates, Negative Urine Result Comment: Cutoff threshold at 300 ng/mL. LAB UBARB2 Negative Barbiturates, Abnormal Urine Preliminary Alert positive. Result Comment: Cutoff threshold at 200 ng/mL. LAB UOXYC Negative Oxycodone, Urine Negative Result Comment: Cutoff threshold at 100 ng/mL. Comment: Immunoassay screen only. Cross reactivity with other substances can occur with immunoassay screening. Detection of any drug(s) in this urine toxicology panel is presumptive only. These tests are for med ica purposes only and should not be used for compliance monitoring, legal, or forensic use. Samples should be within normal physiological conditions (e.g. pH). This assay does not include adulteration/specimen validity testing. In clinical settings, confirmatory testing is at the practitioner's discretion [1]. If clinically indicated, confirmation by high specificity, quantitative methodology, which includes adulteration/spec imen validity testing, may be requested on the same specimen through Client Services ([phone]) if contacted within 48 hours of initial testing. [1]Substance Abuse and Mental Health Services Administration (2012). Clinical Drug Testing in Primary Care Technical Assistance Publication Series 32. Department of Health and Human Services, [place], p.10. Performed By: #### UA, UAMIC, UTOX2 #### [facility] [address] [facility] [phone] ED NOTE Observed: 04/28/2018 Status: COMPLETED Source: [facility] 7:30 PM CLINIC OTHER [place] REPOSITORY HNO ID: [id number] Author: Rosibel SpencerRn) JOSE Baker Service: (none) Author Type: Registered Nurse Type: ED Notes Filed: 04/28/2018 7:47 PM Note Text: Attempted to get a urine sample by straight cath on patient. When undressing patient realized pt was completely saturated in urine and saturated the bed, will attempt to get a urine sample later ED PROV NOTE Observed: 04/28/2018 Status: COMPLETED Source: [facility] 5:18 PM [facility] OTHER [place] REPOSITORY HNO ID: [id number] Author: Dolly Choe MD Service: (none) Author Type: Physician Type: ED Provider Notes Filed: 04/28/2018 10:50 PM Note Text: ED Provider Note Patient Name: Sherita Jurado SERVICE DATE: 04/28/18 History Patient presents with: Psychiatric Problem: hx of schizophrenia 72-year-old male, with a history of schizophrenia, presents by squad from [facility] for increased aggression. The patient is nonverbal from his psych disorder. I spoke with his PCP, Dr. Cloud, he states that she is sending him in for increased aggression at physical therapy today and they had to give him Haldol. He has a known history of schizophrenia. His PCP believes he needs transfer for a [facility] psych. History provided by: [facility] History limited by: Psychiatric disorder PAST MEDICAL HISTORY Diagnosis Date - Actinic keratosis - Breast lump LT breast; cavernous hemangioma/excised - Dizziness - Epidermoid cyst of skin - Falls - Lipoma of skin forearms and abdomen - Mammogram abnormal suspicious of cancer- referral made - Obesity - On retirement drug therapy - Palpitations - Parkinson disease (HCC) - Schizophrenia (HCC) - Tremor - Vitamin D deficiency PAST SURGICAL HISTORY Procedure Laterality Date - NONE FAMILY HISTORY Problem Relation Age of Onset - Family history unknown: Yes Social History Social History Main Topics - Smoking status: Former Smoker - Smokeless tobacco: Never Used - Alcohol use No - Drug use: No - Sexual activity: Not Currently ALLERGIES Allergen Reactions - Goose Feathers Allen* Unknown - Zyprexa [Olanzapine] Unknown Review of Systems Unable to perform ROS: Psychiatric disorder Physical Exam BP 112/55 Pulse 64 Temp (Src) 98 (Oral) Resp 18 Wt 160 lb (72.6kg) SpO2 97% Physical Exam Constitutional: He appears well-developed and well-nourished. No distress. Patient is calm and cooperative, non verbal in my exam HENT: Head: Normocephalic and atraumatic. Eyes: Conjunctivae are normal. Neck: Normal range of motion. Cardiovascular: Normal rate, regular rhythm and normal heart sounds. Pulmonary/Chest: Effort normal and breath sounds normal. No respiratory distress. Abdominal: Soft. There is no tenderness (he does not wince with pain). Musculoskeletal: Normal range of motion. Neurological: He is alert. Alert, unable to assess orientation Skin: Skin is warm and dry. Psychiatric: He has a normal mood and affect. He is not agitated and not aggressive. Nursing note and vitals reviewed. Diagnostic Testing ED Labs Ordered and Reviewed CBC + DIFF - Abnormal; Notable for the following: Result Value Ref Range Abs Lymph 0.69 (*) 1.00 - 4.00 k/uL All other components within normal limits COMP METABOLIC PANEL - Abnormal; Notable for the following: Protein, Total 8.2 (*) 6.3 - 8.0 g/dL Glucose 71 (*) 74 - 99 mg/dL BUN 30 (*) 9 - 24 mg/dL Creatinine 0.69 (*) 0.73 - 1.22 mg/dL All other components within normal limits URINALYSIS - Abnormal; Notable for the following: Ketones, Urine 15 (*) Negative Hemoglobin/Blood,Ur Trace (*) Negative Urobilinogen 4.0 (*) 0.2 - 1.0 All other components within normal limits ACETAMINOPHEN/TYLENO - Abnormal; Notable for the following: Acetaminophen <5 (*) 10 - 30 ug/mL All other components within normal limits SALICYLATE BLD - Abnormal; Notable for the following: Salicylate <1.0 (*) 3.0 - 30.0 mg/dL All other components within normal limits TOX SCREEN ROUT UR - Abnormal; Notable for the following: Barbiturates Preliminary positive. (*) Negative All other components within normal limits URINE MICROSCOPIC - Abnormal; Notable for the following: Bacteria Occasional (*) 0 /HPF All other components within normal limits Procedures ED Course / Clinical Impression Clinical Impressions as of Apr 28 2103 Aggressive behavior Undifferentiated schizophrenia (HCC) MDM / Disposition / Plan Patient presented to the ED from [facility] for increased aggressive behavior. History of schizophrenia and he is nonverbal at baseline. Evidently today during physical therapy he became aggressive. They had to give him Haldol in order for him to calm down. On arrival here he is calm and cooperative. He shakes his head yes or no. The patient will be transferred for a Rhonda psych admission to [place] Additional Tests or Interventions: ECG EKG INTERPRETATION: Ordered and Reviewed Rhythm: Normal sinus rhythm Rate: 61 [place]: Normal axis Intervals: Normal ND interval QRS Complex: Normal ST Segment: Normal ST-T segments QT Interval: Normal Compared with Prior: Interpretation performed by Lindsay Garcia PA-C The patient was TRANSFERRED to: [place] Condition at time of disposition: stable SIGNATURE: IRENA Call (Pa) 04/28/182131 Attending Note I have personally performed a face to face assessment of the patient and have reviewed the PA/CRM SOLUTION ARCHITECT note. My vernon findings include: History : I did not see this patient but discussed care with Irena and agree with plan. Exam : as above Assessment/Plan : as above Other additions or changes: None Signature: Dolly Choe MD Date: 04/28/2018 Time: 10:49 PM Dolly Choe MD 04/28/18 6190 CBC AND DIFFERENTIAL Collected: 04/28/2018 Status: F Source: [facility] 5:02 PM CLINIC OTHER CAMPUS REPOSITORY TYPE CODE TESTS RESULT OUT OF REFERENCE UNITS RANGE LAB WBC 3.70-11.00 k/uL WBC 6.05 LAB RBC 4.20-6.00 m/uL RBC 4.88 LAB HGB 13.0-17.0 g/dL Hemoglobin 15.9 LAB HCT 39.0-51.0 % Hematocrit 47.9 LAB MCV 80.0-100.0 fL MCV 98.2 LAB MCH 26.0-34.0 pG MCH 32.6 LAB MCHC 30.5-36.0 g/dL MCHC 33.2 LAB RDWCV 11.5-15.0 % RDW-CV 12.8 LAB PLTCT 150-400 k/uL Platelet Count 253 LAB MPV 9.0-12.7 fL MPV 9.5 LAB ANEUT % Neut% 79.4 LAB AANEUT 1.45-7.50 k/uL Abs Neut 4.80 LAB ALYMP % Lymph% 11.4 LAB AALYMP 1.00-4.00 k/uL Low Abs Lymph 0.69 LAB AMONO % Ceiba% 7.1 LAB AAMONO <0.87 k/uL Abs Ceiba 0.43 LAB AEOS % Eosin% 0.8 LAB AAEOS <0.46 k/uL Abs Eosin 0.05 LAB ABASO % Baso% 1.3 LAB AABASO <0.11 k/uL Abs Baso 0.08 Performed By: #### LESA LAW SALI, KEYONA #### [facility] [address] [facility] [phone] ACETAMINOPHEN Collected: 04/28/2018 Status: F Source: [facility] [facility] 5:02 PM CLINIC OTHER CAMPUS REPOSITORY TYPE CODE TESTS RESULT OUT OF REFERENCE UNITS RANGE LAB ACETM 10-30 ug/mL Acetaminophen Low <5 Result Comment: Toxic > 200 ug/mL 4 hours post ingestion The Freddy Keane nomogram can be used to estimate the probability of hepatotoxicity via the relationship of plasma acetaminophen concentration to the post ingestion interval. (Lisa. Pedi atrics. 1975. 55:871 to 876 and Freddy et al. [employer] Med. 1981. 141:380 to 385). Reference ranges and high/low indicator flags are provided as general guidelines only. The treating physician must determine appropriate target levels/dosing based on the specific clinical situation. Performed By: #### CBCDIFLESA, VENECIA, CMP #### [facility] [address] [facility] [phone] SALICYLATE Collected: 04/28/2018 Status: F Source: [facility] 5:02 PM [facility] OTHER CAMPUS REPOSITORY TYPE CODE TESTS RESULT OUT OF REFERENCE UNITS RANGE LAB SALI 3.0-30.0 mg/dL Low Salicylate <1.0 Result Comment: The therapeutic range varies and has been reported to be 3.0 to 10.0 mg/dL for anti pyretic/analgesic conditions and 15.0 to 30.0 mg/dL for anti inflammatory/rheumatic fever conditions. Ranges published by the instrument dry chain offbearer. Reference ranges and high/low indicator flags are provided as general guidelines only. The treating physician must determine appropriate target levels/dosing based on the specific clinical situation. Performed By: #### CBCDIF, ACETM, VENECIA, CMP #### [facility] [address] [place] [address] COMP METABOLIC PANEL Collected: 04/28/2018 Status: F Source: [facility] 5:02 PM [facility] OTHER [place] REPOSITORY TYPE CODE TESTS RESULT OUT OF REFERENCE UNITS RANGE LAB TP 6.3-8.0 g/dL Protein, High Total 8.2 LAB ALB 3.9-4.9 g/dL Albumin 4.2 LAB CA 8.5-10.2 mg/dL Calcium, Total 9.3 LAB TBIL 0.2-1.3 mg/dL Bilirubin, Total 0.8 LAB ALKP 38-113 U/L Alkaline Phosphatase 98 LAB AST 14-40 U/L AST 26 LAB GLU 74-99 mg/dL Low Glucose 71 Result Comment: The [place] Diabetes Association (ADA) provides guidance for cutoff values for fasting glucose and random glucose. The ADA defines fasting as no caloric intake for at least 8 hours. Fas ting plasma glucose results between 100 to 125 mg/dL indicate increased risk for diabetes (prediabetes). Fasting plasma glucose results greater than or equal to 126 mg/dL meet the criteria for diagnosis of diabetes. In the absence of unequivocal hyperglycemia, results should be confirmed by repeat testing. In a patient with classic symptoms of hyperglycemia or hyperglycemic crisis, random plasma glucose results greater than or equal to 200 mg/dL meet the criteria for diagnosis of diabetes. Reference: Standards of Medical Care in Diabetes 2016, [place] Diabetes Association. Diabetes Care. 2016.39(Suppl 1). LAB BUN 9-24 mg/dL BUN High 30 LAB CRET 0.73-1.22 mg/dL Low Creatinine 0.69 LAB NA 136-144 mmol/L Sodium 141 LAB K 3.7-5.1 mmol/L Potassium 4.4 LAB CL 97-105 mmol/L Chloride 101 LAB CO2 22-30 mmol/L CO2 29 LAB AGAP 9-18 mmol/L Anion Gap 11 LAB ALT 10-54 U/L ALT 20 LAB GFRAA eGFR- Amer. >60 LAB GFRNAA . eGFR-All Other Races >60 Result Comment: eGFR (Estimated GFR) Units of measure: mL/min/1.73 meters squared eGFR is derived from the reexpressed MDRD Study equation using the following parameters: serum creatinine, age, gender and race. The creatinine assay has been calibrated to be traceable to IDMS. An eGFR <60 mL/min/1.73m2 for >3 months is consistent with chronic kidney disease. Refer to KDOQI guidelines for clinical interpretation. In patients with unstable renal function, e.g. those with acute kidney injury, the eGFR may not accurately reflect actual GFR. Performed By: #### CBCDIF, ACETM, SALI, CMP #### [facility] [address] [facility] [phone] ED NOTE Observed: 04/28/2018 Status: COMPLETED Source: [facility] 4:55 PM [facility] REPOSITORY HNO ID: [id number] Author: Sharlene SpencerRn) Herlinda RN Service: (none) Author Type: Registered Nurse Type: ED Notes Filed: 04/28/2018 4:55 PM Note Text: Patient belongings secured and bagged. ED NOTE Observed: 04/28/2018 Status: COMPLETED Source: [facility] [place] 4:55 PM [facility] REPOSITORY HNO ID: [id number] Author: Sharlene SpencerRn) Herlinda, RN Service: (none) Author Type: Registered Nurse Type: ED Notes Filed: 04/28/2018 4:55 PM Note Text: Plan of care -Monitor Patient's Vital Signs for changes in condition -Monitor patient for changes in pain -Maintain patient safety and privacy -Provide comfort measures -Call light in place Siderails up, bed in locked and low position ED NOTE Observed: 04/28/2018 Status: COMPLETED Source: [facility] [place] 4:52 PM [facility] OTHER CAMPUS REPOSITORY HNO ID: [id number] Author: Sharlene Watts) JOSE Pate Service: (none) Author Type: Registered Nurse Type: ED Notes Filed: 04/28/2018 4:55 PM Note Text: Patient presents to the ED from [facility] with aggressive behavior. Patient is alert to slef with hx of schizophrenia and parkinsons. Patient has dysphasia as well. Patient was able to follow commands and ambulate from EMS cot to bed. ED NOTE Observed: 04/28/2018 Status: COMPLETED Source: [facility] 4:50 PM CLINIC OTHER CAMPUS REPOSITORY HNO ID: [id number] Author: Lis SpencerRn) JOSE Rowe Service: (none) Author Type: Registered Nurse Type: ED Notes Filed: 04/28/2018 4:50 PM Note Text: Bed: ED-09 Expected date: Expected time: Means of arrival: Comments: [place] ELECTROENCEPHALOGRAM Observed: 03/29/2018 Status: F Source: [place] 2:03 PM [facility] REPOSITORY [facility] Pulmonary Services/Neurology [address] [place] [address] MR#: [id number] Acct: [id number] Name: SHERITA JURADO Rep #: [id number] : 1945 72 From: Eleazar Milligan MD Referring Dr: Cristian FONTENOT, [facility] Status: REG REF Ordering Dr: Date: Location: [facility] Sex: M C - Electroencephalogram Date of service 03/27/18 This is a 18 channel electroencephalogram, video-assisted, performed utilizing the International 10-20 electrode placement protocol on this 72-year-old male. EKG reference leads and photic stimulation were also performed. The EKG is regular throughout the recording. Background activity is 9-10 Hz medically in the posterior leads which attenuates with eye-opening. The patient remained awake throughout the recording. There are intermittent episodes of bilateral arm shaking without underlying electrographic abnormality. On video this is seem to be bilateral symmetric arm shaking, with no other abnormal body movements. The movements are eliminated when the microbiological laboratory technician intervenes. There are no lateralizing or epileptiform changes. Photic stimulation generates a normal symmetric driving response in the posterior leads. Impression: No epileptiform abnormalities. Bilateral arm tremor is noted without electrographic correlate. 03/29/18 1403 <Electronically signed by Eleazar Milligan MD> Date Eleazar Milligan MD CC: Joel Foster MD; Kathryn Cloud; Eleazar Milligan MD; Kathryn Cloud MD Date Dictated: 03/29/181 Date Transcribed: 03/29/181320 Search Engine Optimization Analyst: NF Signed BRAIN WITHOUT Observed: 03/27/2018 Status: F Source: [place] 6:53 AM [facility] REPOSITORY [facility] Imaging Services [address] [place] [address] Brain without Contrast MR#: [id number] Acct: [id number] Name: SHERITA JURADO Rep #: [id number] : 1945 M 72 From: Balaji Brown PCP: Kathryn Cloud Status: REG CLI Study: Brain without Contrast Date of Exam: 03/27/18 Exam# [id number] Ordering Dr: Chad Foster MD STUDY: MRI BRAIN WITHOUT CONTRAST REASON FOR EXAM: Male, 72 years old. syncope, memory lloss, tremors d/t meds TECHNIQUE: Standardized multiplanar fat and water weighted pulse sequences were obtained. COMPARISON: None. FINDINGS: Normal size of the ventricles and extra-axial spaces for the patient's age. There are a limited number of small white matter hyperintensities, distributed throughout the deep white matter tracts of the cerebral hemispheres, consistent with mild chronic white matter ischemic changes. Normal bilateral basal ganglia. Normal thalami. There is no extra-axial fluid accumulation. Normal flow voids within the major intracranial circulation suggesting patency by spin echo criteria. Normal sella turcica, pituitary gland, infundibular stalk, optic chiasm and hypothalamus. Normal tectal plate and pineal gland. Normal midbrain, sheyla and medulla. Normal cerebellum. Normal basal cisterns. Normal bilateral temporal bones. Normal bilateral internal auditory canals. MRI/Brain without Contrast IMPRESSION: No acute intracranial abnormality. Electronically Signed: Balaji Brown MD at 8:07 EST Tel , Service support , CC: Joel Foster MD; Kathryn Cloud Search Engine Optimization Analyst: Signed ED NOTE Observed: 03/11/2018 Status: COMPLETED Source: [facility] 3:22 PM [facility]IN [facility]AMP[facility] REPOSITORY HNO ID: [id number] Author: Ariella (Rn) JOSE Elder Service: Emergency Medicine Author Type: Registered Nurse Type: ED Notes Filed: 03/11/2018 3:45 PM Note Text: Patient alert and oriented, d/c into caregivers care. Both patient and caregiver verbalize d/c instructions ED PROV NOTE Observed: 03/11/2018 Status: COMPLETED Source: [facility] 3:13 PM CLINIC MAIN [place] REPOSITORY HNO ID: [id number] Author: Eusebio Xiao DO Service: Emergency Medicine Author Type: Physician Type: ED Provider Notes Filed: 03/11/2018 3:19 PM Note Text: ED Provider Note Patient Name: Sherita Jurado SERVICE DATE: 03/11/18 History Patient presents with: Laceration: lac to left ear after pt slipped off toliet drying feet, no loc or other complaints Patient presents with laceration to his left ear that occurred today. Patient was sitting and leaning forward when he fell forward. Patient denies any loss of consciousness. Patient does not take any anticoagulants. Patient denies any paresthesias or weakness. Last tetanus is up-to-date. PAST MEDICAL HISTORY Diagnosis Date - Actinic keratosis - Breast lump LT breast; cavernous hemangioma/excised - Dizziness - Epidermoid cyst of skin - Falls - Lipoma of skin forearms and abdomen - Mammogram abnormal suspicious of cancer- referral made - Obesity - On retirement drug therapy - Palpitations - Parkinson disease (HCC) - Schizophrenia (HCC) - Tremor - Vitamin D deficiency PAST SURGICAL HISTORY Procedure Laterality Date - NONE FAMILY HISTORY Problem Relation Age of Onset - Family history unknown: Yes Social History Social History Main Topics - Smoking status: Former Smoker - Smokeless tobacco: Never Used - Alcohol use No - Drug use: No - Sexual activity: Not Currently ALLERGIES Allergen Reactions - Goose Feathers Allen* Unknown - Zyprexa [Olanzapine] Unknown Review of Systems Constitutional: Negative for chills and fever. HENT: Negative for sore throat. Respiratory: Negative for shortness of breath. Cardiovascular: Negative for chest pain. Gastrointestinal: Negative for nausea and vomiting. Musculoskeletal: Negative for back pain and neck pain. Neurological: Negative for syncope and headaches. Physical Exam BP 114/66 Pulse 86 Temp 97.8 Resp 20 Ht 5' 10 (1.78m) Wt 172 lb 6.4 oz (78.2kg) SpO2 95% BMI 24.74 kg/(m2). Physical Exam Constitutional: He appears well-developed and well-nourished. HENT: Head: Normocephalic and atraumatic. Right Ear: Tympanic membrane and ear canal normal. Left Ear: Tympanic membrane and ear canal normal. Left ear exhibits lacerations. Ears: Eyes: Pupils are equal, round, and reactive to light. EOM are normal. Neck: Normal range of motion. Neck supple. Musculoskeletal: Normal range of motion. Neurological: He is alert. No cranial nerve deficit. Skin: Skin is warm and dry. Nursing note and vitals reviewed. Diagnostic Testing ED Labs Ordered and Reviewed - No data to display LAC REPAIR Date/Time: 03/11/2018 3:15 PM Performed by: EUSEBIO XIAO Authorized by: EUSEBIO XIAO Consent: Consent obtained: Verbal Consent given by: Patient and healthcare agent Anesthesia (see MAR for exact dosages): Anesthesia method: Local infiltration Local anesthetic: Lidocaine 1% w/o epi Laceration details: Location: Ear Ear location: L ear Length (cm): 3 Repair type: Repair type: Simple Pre-procedure details: Preparation: Patient was prepped and draped in usual sterile fashion Exploration: Hemostasis achieved with: Direct pressure Wound exploration: entire depth of wound probed and visualized Wound extent: no nerve damage noted and no vascular damage noted Contaminated: no Treatment: Area cleansed with: Kristie Amount of cleaning: Standard Irrigation solution: Sterile saline Irrigation method: Syringe Post-procedure details: Dressing: Antibiotic ointment and sterile dressing Patient tolerance of procedure: Tolerated well, no immediate complications ED Course / Clinical Impression Clinical Impressions as of Mar 11 151 Laceration of auricle of left ear, initial encounter MDM / Disposition / Plan The wound was cleaned and anesthetized 1% plain lidocaine locally. The wound was closed with 6 simple interrupted #5-0 Prolene sutures under sterile technique. Patient tolerated the procedure well. Bacitracin gauze dressing was applied. Patient was instructed to follow- up in one week for suture removal. Patient and caregivers understood and were agreeable with the plan. All questions were answered. Disposition The patient was discharged. Counseled patient regarding suspected diagnosis. As well as the need for follow-up. Discharged home with verbal and written instructions. They were instructed to return as needed for persistent or worsening symptoms or any new concerns. Condition at disposition is stable. SIGNATURE: DO Eusebio Mann DO 03/11/18 1519 ED NOTE Observed: 03/11/2018 Status: COMPLETED Source: [facility] 3:08 PM [facility] REPOSITORY HNO ID: [id number] Author: Ariella SpencerRn) Jael RN Service: Emergency Medicine Author Type: Registered Nurse Type: ED Notes Filed: 03/11/2018 3:08 PM Note Text: Left ear cleaned, bacitracin applied, bandaged applied. Patient tolerated well, care givers at bedside ED NOTE Observed: 03/11/2018 Status: COMPLETED Source: [facility] 2:32 PM [facility] REPOSITORY HNO ID: [id number] Author: Jacob SpencerRn) Xander RN Service: Emergency Medicine Author Type: Registered Nurse Type: ED Notes Filed: 03/11/2018 2:33 PM Note Text: Pt slipped off toilet while drying his feet hitting his head on corner causing laceration to left ear. Care givers and pt denies any LOC, headache, neck or back pain. ED NOTE Observed: 02/01/2018 Status: COMPLETED Source: [facility] [place] 1:13 PM [facility] REPOSITORY HNO ID: [id number] Author: Deirdre SpencerRn) JOSE Love Service: Emergency Medicine Author Type: Registered Nurse Type: ED Notes Filed: 02/01/2018 1:13 PM Note Text: Pt leaves dept in [facility] amb[facility]lette w/c ED NOTE Observed: 02/01/2018 Status: COMPLETED Source: [facility] 12:46 PM [facility] REPOSITORY HNO ID: [id number] Author: Jeanne SpencerRn) JOSE James Service: Emergency Medicine Author Type: Registered Nurse Type: ED Notes Filed: 02/01/2018 1:29 PM Note Text: Patient has been calm,cooperative,drowsy and pleasant while at ED. No seizure activity noted. He does lay in bed and eyes have rolled back in the head appearance , but when spoken to the patient immediatly responds. ED NOTE Observed: 02/01/2018 Status: COMPLETED Source: [facility] 12:45 PM [facility] REPOSITORY HNO ID: [id number] Author: Jeanne James RN Service: Emergency Medicine Author Type: Registered Nurse Type: ED Notes Filed: 02/01/2018 12:45 PM Note Text: Martha Govea the patients guardian was notified via voicemail that patient would be getting transferred. ED NOTE Observed: 02/01/2018 Status: COMPLETED Source: [facility] 12:17 PM [facility] REPOSITORY HNO ID: [id number] Author: Kamila Pinedo RN Service: Emergency Medicine Author Type: Registered Nurse Type: ED Notes Filed: 02/01/2018 12:18 PM Note Text: [facility] ETA 1300 for transport back to [facility] ED NOTE Observed: 02/01/2018 Status: COMPLETED Source: [place] 11:59 AM [facility] REPOSITORY HNO ID: [id number] Author: Jeanne James RN Service: Emergency Medicine Author Type: Registered Nurse Type: ED Notes Filed: 02/01/2018 11:59 AM Note Text: Patient given some gingerale. He has drank some sips and has tolerated well. ED NOTE Observed: 02/01/2018 Status: COMPLETED Source: [facility] [place] 11:26 AM [facility] REPOSITORY HNO ID: [id number] Author: Jeanne James RN Service: Emergency Medicine Author Type: Registered Nurse Type: ED Notes Filed: 02/01/2018 11:34 AM Note Text: Patient c/o dizziness with sitting to standing. Patient tolerated procedure well. LACTIC ACID Collected: 02/01/2018 Status: F Source: [facility] 11:22 AM HEALTH SYSTEM REPOSITORY TYPE CODE TESTS RESULT OUT OF REFERENCE UNITS RANGE LAB LLA(LOINC) 0.4-2.0 mEq/L Lactic acid 1.3 Performed By: #### LLA #### [place] [address] ED NOTE Observed: 02/01/2018 Status: COMPLETED Source: [facility] 11:02 AM [facility] REPOSITORY HNO ID: [id number] Author: Jeanne SpencerRn) JOSE James Service: Emergency Medicine Author Type: Registered Nurse Type: ED Notes Filed: 02/01/2018 11:04 AM Note Text: Guardian in ED. His name is Martha Govea-Grey persaud [facility]. Phone number is [phone]. He asks we call with update when a plan of care is known. ED NOTE Observed: 02/01/2018 Status: COMPLETED Source: [facility] [place] 10:30 AM [facility] REPOSITORY HNO ID: [id number] Author: Deirdre SpencerRn) JOSE Love Service: Emergency Medicine Author Type: Registered Nurse Type: ED Notes Filed: 02/01/2018 10:31 AM Note Text: Pt resting in bed, denies needs at this time, resp even and unlabored CT HEAD W/O CONTRAST Observed: 02/01/2018 Status: F Source: [facility] 10:08 AM HEALTH SYSTEM REPOSITORY Performed at [facility] APPROVED BY: Raffi Gregorio MD BRAIN CT WITHOUT CONTRAST ENHANCEMENT Serial transverse images of the brain were obtained without contrast material. The study was significantly technically limited due to artifact arising from patient motion and was performed within 24 ho urs of arrival to evaluate headache following traumatic injury. CT Dose-Length Product (DLP): 1766 mGy*cm CT Dose Reduction Employed: No dose reduction techniques were required Serial images demonstrate foci of decreased attenuation involving the periventricular, deep, and subcortical white matter of the cerebral hemispheres. There is no definite evidence of acute infarction, hemorrhage, mass lesion, or midline shift. The overall size of the ventricular system is within normal limits. IMPRESSION: Significantly limited study demonstrating no definitive acute abnormality as described above. Findings consistent with subacute/chronic cerebral microvascular disease are identified. CHEST 1 VIEW Observed: 02/01/2018 Status: F Source: [facility] [employer] 10:07 AM HEALTH SYSTEM REPOSITORY Performed at [facility] APPROVED BY: DEION MURILLO MD EXAM TITLE: PORTABLE AP/PA CHEST X RAY DATE: 02/01/2018 09:07 COMPARISON: 2 view chest x-ray dated 12/16/2017 CLINICAL INDICATION/HISTORY: Acute respiratory illness. ENCOUNTER: Not applicable TECHNIQUE: Single portable AP/PA radiograph of the chest RESULT: Lines, tubes, and devices: None. Lungs and pleura: No discrete focal airspace consolidation, pneumothorax or effusion. Pulmonary vascularity within normal limits. Cardiomediastinal silhouette: Normal cardiomediastinal silhouette. Other: Osseous structures and soft tissues grossly intact. IMPRESSION: No radiographic findings to suggest acute cardiopulmonary process. ED NOTE Observed: 02/01/2018 Status: COMPLETED Source: [place] 9:47 AM [facility] REPOSITORY HNO ID: [id number] Author: Jeanne (Rn) JOSE James Service: Emergency Medicine Author Type: Registered Nurse Type: ED Notes Filed: 02/01/2018 9:54 AM Note Text: Patient transported to radiology Observed: 02/01/2018 Status: F Source: [facility] B[facility] 9:47 AM HEALTH SYSTEM REPOSITORY Test performed at [facility] No growth Performed By: #### C_BLO #### [facility] [address] [place] [address] ED PROV NOTE Observed: 02/01/2018 Status: COMPLETED Source: [place] 9:21 AM [facility] REPOSITORY HNO ID: [id number] Author: Cristobal Brown MD Service: Emergency Medicine Author Type: Physician Type: ED Provider Notes Filed: 02/01/2018 12:02 PM Note Text: ED Provider Note Patient Name: Sherita Jurado SERVICE DATE: 02/01/18 History Patient presents with: Seizures: Per [facility] Sherita Jurado is a 72 year old male with history of psychiatric illness who presents with Seizures (Per [facility]). Patient took nothing for this prior to arrival. - Symptoms began 1 hours prior to arrival. - Severity: mild - Timing: intermittent - Quality: shaking, increased tremor. No LOC . Pt complains of nausea - Seizures ([facility] [facility]) is exacerbated by nothing. - Seizures (Per [facility]) is not exacerbated by movement palpation. - Symptoms are associated with nausea and vomiting. - Symptoms are not associated with trauma, loc, post ictal state. - Improved by spontaneous. - Pt at [facility]. Recent admission for schizophrenia. Movement disorder And chronic tremor thought to be related to psych meds. Today nurse said he was shaking more which she called seizure . This occurred with nausea vomiting . EMS did not witness seizure activity when they responded and state no signs postictal state. . PAST MEDICAL HISTORY Diagnosis Date - Actinic keratosis - Breast lump LT breast; cavernous hemangioma/excised - Dizziness - Epidermoid cyst of skin - Falls - Lipoma of skin forearms and abdomen - Mammogram abnormal suspicious of cancer- referral made - Obesity - On retirement drug therapy - Palpitations - Parkinson disease (HCC) - Schizophrenia (HCC) - Tremor - Vitamin D deficiency PAST SURGICAL HISTORY Procedure Laterality Date - NONE FAMILY HISTORY Problem Relation Age of Onset - Family history unknown: Yes Social History Social History Main Topics - Smoking status: Former Smoker - Smokeless tobacco: Never Used - Alcohol use No - Drug use: No - Sexual activity: Not on file ALLERGIES Allergen Reactions - Goose Feathers Allen* Unknown - Zyprexa [Olanzapine] Unknown Review of Systems Constitutional: Negative for chills and fever. HENT: Negative for congestion, sore throat and trouble swallowing. Respiratory: Negative for chest tightness, shortness of breath and wheezing. Gastrointestinal: Positive for nausea. Negative for abdominal pain, diarrhea and vomiting. Genitourinary: Negative for dysuria, frequency and urgency. Musculoskeletal: Negative for back pain, myalgias and neck pain. Skin: Negative for color change, pallor, rash and wound. Allergic/Immunologic: Positive for environmental allergies. Negative for food allergies and immunocompromised state. Neurological: Negative for syncope, weakness, numbness and headaches. Psychiatric/Behavioral: Negative for behavioral problems and confusion. The patient is not nervous/anxious. Physical Exam BP 76/40[ notified-Bolus of saline ordered[ Pulse 61 Temp (Src) 96.9 (Temporal Artery) Resp 18 Ht 5' 10[[facility][ (1.78m) Wt 160 lb (72.6kg) SpO2 97% BMI 22.96 kg/(m2). Physical Exam Constitutional: He is oriented to person, place, and time. He appears well-developed and well-nourished. No distress. HENT: Head: Normocephalic and atraumatic. Right Ear: External ear normal. Left Ear: External ear normal. Eyes: EOM are normal. Right eye exhibits no discharge. Left eye exhibits no discharge. No scleral icterus. Neck: Normal range of motion. Neck supple. No JVD present. No tracheal deviation present. Cardiovascular: Normal rate, regular rhythm and intact distal pulses. Pulmonary/Chest: Effort normal and breath sounds normal. No respiratory distress. Abdominal: Soft. He exhibits no distension. There is no tenderness. There is no rebound. Musculoskeletal: Normal range of motion. He exhibits no edema, tenderness or deformity. Neurological: He is alert and oriented to person, place, and time. No sensory deficit. He exhibits normal muscle tone. Skin: Skin is warm and dry. Capillary refill takes less than 2 seconds. No rash noted. He is not diaphoretic. No erythema. No pallor. Psychiatric: He has a normal mood and affect. His behavior is normal. Judgment and thought content normal. Nursing note and vitals reviewed. Diagnostic Testing ED Labs Ordered and Reviewed CBC + AUTO DIFF (AK,AV,EU,FV,HL,ELISSA,MM,SP) - Abnormal; Notable for the following: Result Value Ref Range RBC 4.29 (*) 4.60 - 6.20 mil/cmm MCV 98.1 (*) 80.0 - 94.0 fl MCH 33.1 (*) 27.0 - 31.0 pg Abs. Lymph 0.95 (*) 1.50 - 3.65 thou/cmm All other components within normal limits COMPREHENSIVE METABOLIC PANEL (AK,AV,EU,FV,HL,ELISSA,MM,SP) LIPASE BLOOD (AK,AV,EU,FV,HL,ELISSA,MM,SP) TROPONIN I (AK) MDRD GFR LACTIC ACID / LACTATE (AK,AV,EU,FV,HL,ELISSA,MM,SP) URINALYSIS (AV,EU,FV,HL,ELISSA,MM,SP) BLOOD CULTURE DRAW (AV,EU,FV,HL,ELISSA,MM,SP) BLOOD CULTURE DRAW (AV,EU,FV,HL,ELISSA,MM,SP) Procedures ED Course / Clinical Impression Clinical Impressions as of Feb 02 1200 Non-intractable vomiting with nausea, unspecified vomiting type MDM / Disposition / Plan BP trending down since getting to ER. Old records do show some pressures in the 90's systolic recently but also as high as 130's . Does not look ill . Nauseated . Will give fluid bolus and get labs ekg for now. Also dose zofran Fluids given. Nausea better now taking po . Lactate slight elevation but repeat is wnl. orthostats negative Additional Tests or Interventions: ECG EKG INTERPRETATION: Ordered and Reviewed Rhythm: Normal sinus rhythm Rate: 59 [place]te: Normal axis Intervals: Normal ND interval QRS Complex: Normal ST Segment: Normal ST-T segments QT Interval: Normal Compared with Prior: Unchanged Interpretation performed by Cristobal Brown MD Disposition The patient was discharged. Counseled patient (and POA) regarding . As well as the need for follow-up. Discharged home with verbal and written instructions. They were instructed to return as needed for persistent or worsening symptoms or any new concerns. Condition at disposition is stable and improved. SIGNATURE: MD Cristobal Sosa MD 02/01/18 1202 ED NOTE Observed: 02/01/2018 Status: COMPLETED Source: [facility] 9:18 AM [facility] [place] REPOSITORY HNO ID: [id number] Author: Jeanne Watts) JOSE [place] Service: Emergency Medicine Author Type: Registered Nurse Type: ED Notes Filed: 02/01/2018 9:19 AM Note Text: Patient is drowsy appearing, easily responds to voice, responds to commands and is calm. Occasional twitching noted at face and hands. ED NOTE Observed: 02/01/2018 Status: COMPLETED Source: [facility] 9:17 AM [facility] [place] REPOSITORY HNO ID: [id number] Author: Jeanne Watts) JOSE [place] Service: Emergency Medicine Author Type: Registered Nurse Type: ED Notes Filed: 02/01/2018 9:18 AM Note Text: EKG at bedside EKG (AK,AV,EU,FV,HL,ELISSA,MM,SP) Observed: Status: F Source: [facility] 02/01/2018 9:17 AM [facility] OTHER CAMPUS REPOSITORY NAME : SHERITA JURADO PID : [id number] : 1945 Gender : Male Race : Unknown ORD : [id number] Procedure Date : Feb 01 2018 09:17 Edit Date : Feb 02 2018 11:43 Diagnosis:SINUS BRADYCARDIA RIGHTWARD AXIS OTHERWISE NORMAL ECG WHEN COMPARED WITH ECG OF 16-DEC-2017 16:02, NO SIGNIFICANT CHANGE WAS FOUND Confirmed by MD Johnson Vinayak A. ([id number]) on 02/02/2018 11:43:53 AM Ventricular Rate : 59 BPM Atrial Rate : 59 BPM P-R Interval : 134 ms QRS Duration : 96 ms Q-T Interval : 456 ms QTC Calculation(Bezet) : 451 ms P Butte : 46 degrees R Butte : -2 degrees T [place]te : 40 degrees Test Reason : Weakness Location : 150 : [place] ED Overread By : MD Alex,Maximilian Woods Editted By : MD Johnson Vinayak A. Referred By : CRISTOBAL BROWN Acquired by : Radha Herrera ED NOTE Observed: 02/01/2018 Status: COMPLETED Source: [facility] 9:11 AM [facility] REPOSITORY HNO ID: [id number] Author: Jeanne SpencerRn) JOSE [place] Service: Emergency Medicine Author Type: Registered Nurse Type: ED Notes Filed: 02/01/2018 9:11 AM Note Text: Patient given urinal . ED NOTE Observed: 02/01/2018 Status: COMPLETED Source: [facility] 9:10 AM [facility] REPOSITORY HNO ID: [id number] Author: Jeanne Watts) JOSE [place] Service: Emergency Medicine Author Type: Registered Nurse Type: ED Notes Filed: 02/01/2018 9:10 AM Note Text: Patient informed: the name of medication, why we are giving it, possible side effects, what they may expect to feel, and was offered a chance to ask questions, prior to the administration of saline and zofran. HEMOGRAM/DIFF Collected: 02/01/2018 Status: F Source: [facility] 9:00 AM HEALTH SYSTEM REPOSITORY TYPE CODE TESTS RESULT OUT OF REFERENCE UNITS RANGE LAB LWBC(LOINC 4.8-10.8 thou/cmm ) WBC 5.4 LAB LRBC(LOINC 4.60-6.20 mil/cmm ) Low RBC 4.29 LAB LHGB(LOINC 14.0-18.0 g/dL ) Hgb 14.2 LAB LHCT(LOINC 42.0-52.0 % ) Hct 42.1 LAB LMCV(LOINC 80.0-94.0 fl ) MCV High 98.1 LAB LMCH(LOINC 27.0-31.0 pg ) MCH High 33.1 LAB LMCHC(LOIN 32.0-36.0 % C) MCHC 33.7 LAB LRDW(LOINC 11.5-15.9 % ) RDW 12.1 LAB LPLT(LOINC 150-400 thou/cmm ) Platelet 240 LAB LMPV(LOINC 7.1-10.5 fl ) MPV 9.3 LAB LSEGT(LOIN % C) Seg Neutrophil 75.4 LAB LLYMP(LOIN % C) Lymphocyte 17.6 LAB LMNO(LOINC % ) Monocyte 4.8 LAB ABRAM(LOINC % ) Eosinophil 1.5 LAB LBASO(LOIN % C) Basophil 0.7 LAB LSEGN(LOIN 3.00-5.67 thou/cmm C) Abs. Neut (ANC) 4.07 LAB LLYMN(LOIN 1.50-3.65 thou/cmm C) Low Abs. Lymph 0.95 LAB LMONN(LOIN 0.20-1.00 thou/cmm C) Abs. Ceiba 0.26 LAB LEOSN(LOIN 0.00-0.41 thou/cmm C) Abs. Eosin 0.08 LAB LBASN(LOIN 0.00-0.08 thou/cmm C) Abs. Baso 0.04 Performed By: #### LCBCD #### [place] [address] TROPONIN I Collected: 02/01/2018 Status: F Source: [facility] 9:00 HEALTH SYSTEM REPOSITORY TYPE CODE TESTS RESULT OUT OF REFERENCE UNITS RANGE LAB LTRP(LOINC) <=0.07 ng/mL Troponin I <0.03 Performed By: #### LTRP #### [place] [address] COMPREHENSIVE PANEL Collected: 02/01/2018 Status: F Source: [facility] [address] [place] [address] SYSTEM REPOSITORY TYPE CODE TESTS RESULT OUT OF REFERENCE UNITS RANGE LAB AIR CARGO AGENT(LOINC) 136-145 mEq/L Low Sodium Blood 132 LAB LK(LOINC) 3.5-5.1 mEq/L Low Potassium Blood 3.4 LAB LCL(LOINC) 98-107 mEq/L Chloride Blood 99 LAB LCO2(LOINC 21-32 mEq/L ) CO2 Blood 30 LAB LGLU(LOINC 70-99 mg/dL ) Glucose High Blood 142 LAB LBUN(LOINC 7-25 mg/dL ) BUN Blood 10 LAB LCREA(LOIN 0.67-1.17 mg/dL C) Creatinine Blood 0.69 LAB LCA(LOINC) 8.5-10.1 mg/dL Calcium Blood 8.6 LAB LALB(LOINC 3.4-5.0 g/dL ) Low Albumin Blood 3.2 LAB LTP(LOINC) 6.4-8.2 g/dL Total Protein 7.3 LAB LAST(LOINC 15-37 U/L ) AST-SGOT Blood 17 LAB LALT(LOINC 14-63 U/L ) Low ALT-SGPT Blood 10 LAB LALKP(LOIN 46-116 U/L C) Alk Phosphatase 80 LAB LBILT(LOIN 0.2-1.0 mg/dL C) Total Bilirubin 0.7 LAB LANGP(LOIN 8-20 C) Low Anion Gap 7 LAB LBNCR(LOIN 10-20 C) BUN/Creatinine 15 Ratio Performed By: #### LP14 #### [place] [address] LIPASE BLOOD Collected: 02/01/2018 Status: F Source: [facility] 9:00 AM HEALTH SYSTEM REPOSITORY TYPE CODE TESTS RESULT OUT OF REFERENCE UNITS RANGE LAB LLIP(LOINC) 73-393 U/L Lipase Blood 170 Performed By: #### LLIP #### [place] [address] MDRD EGFR Collected: 02/01/2018 Status: F Source: [facility] 9:00 AM HEALTH SYSTEM REPOSITORY TYPE CODE TESTS RESULT OUT OF RANGE REFERENCE UNITS LAB LGFRF(LOINC >60mL/min/1.73m ) 2 eGFR >60 Result Comment: If the patient is , multiply the result by 1.210. Performed By: #### LGFR #### [place] [address] LACTIC ACID Collected: 02/01/2018 Status: F Source: [facility] 9:00 AM HEALTH SYSTEM REPOSITORY TYPE CODE TESTS RESULT OUT OF REFERENCE UNITS RANGE LAB LLA(LOINC) 0.4-2.0 mEq/L High alert Lactic acid 2.7 Performed By: #### LLA #### [place] [address] Observed: 02/01/2018 Status: F Source: [facility] CULT BLOOD 9:00 AM HEALTH SYSTEM REPOSITORY Test performed at [facility] No growth Performed By: #### C_BLO #### [facility] [address] [place] [address] ED NOTE Observed: 02/01/2018 Status: COMPLETED Source: [facility] 8:54 AM [facility] REPOSITORY HNO ID: [id number] Author: Jeanne SpencerRn) JOSE [place] Service: Emergency Medicine Author Type: Registered Nurse Type: ED Notes Filed: 02/01/2018 8:58 AM Note Text: Nurse from group home calls to report patient has had what they feel are seizures x 3 in the past 25 minutes. Nurse reports only one episode of twitching. She reports the patient is pale,alert and vomiting with some diaphoresis. Patient presents to ED calm and cooperative. No excessive shakiness other than his tremors from parkinson's. NURSING PROG Observed: 01/30/2018 Status: COMPLETED Source: [facility] 8:21 PM [facility] REPOSITORY HNO ID: [id number] Author: Cynthia Watts) JOSE Kirby Service: (none) Author Type: Registered Nurse Type: Nursing Progress Note Filed: 01/30/2018 8:22 PM Note Text: Nursing Progress Note Patient Name: Sherita Jurado Patient Location: [place] [address] Daily Note: 2020 Patient discharged to the facility in stable condition. This note was completed by: Cynthia Kirby RN CNDS Observed: 01/30/2018 Status: COMPLETED Source: [facility] 8:20 PM [facility] REPOSITORY HNO ID: [id number] Author: Josse Balderrama Service: Psychiatry Author Type: Physician Type: Discharge Summaries Filed: 02/10/2018 3:29 PM Note Text: DISCHARGE SUMMARY BEHAVIORAL HEALTH PATIENT NAME: Sherita Jurado ADMISSION DATE: 01/23/2018 DISCHARGE DATE: 01/30/2018 ATTENDING PHYSICIAN: Josse Balderrama Code Status: Not on file Highest Readmission Risk Score: 24 The 30 day readmissions risk score is derived from an internally validated risk model which evaluates patient level characteristics, utilization history, medication orders and lab results up until the day of discharge. Patients with a score of 40 or above are considered highest risk for readmission. Specific patient level drivers will be listed at the bottom of the summary. REASON FOR HOSPITALIZATION: Acute psychosis DISCHARGE DIAGNOSIS: 1. PRIMARY: Schizoaffective Disorder GAF: -50-41 Serious symptoms or any serious impairment in social, occupational or school functioning. OPERATIONS DURING HOSPITALIZATION: None PROCEDURES DURING HOSPITALIZATION: No procedures performed HOSPITAL COURSE: Mr. Jurado was admitted due to his behaviors a his facility. He was admitted and followed by Dr. Washington and for his medical issues and DVT precautions. He was assessed by Neurology as well due to his tremors. His medications were adjusted. He was treated with group and behavioral therapy. He was cleared for discharge and will return to his facility. Will follow up with his mental health provider there. He did not endorse any wishes or suicidal ideation or plan. CONSULTING TEAMS DURING HOSPITALIZATION: Internal Medicine: Dr. Washington Neurology: Dr. Adkins PATIENT CONDITION AT DISCHARGE: Stable DISCHARGE DISPOSITION: [facility] COMPLICATIONS: None At this time the patient has maximized his benefit from hospitalization.. The patient has chronic impulses of non-lethal self-harm behavior but is safe for discharge. The guardian voices a readiness to transition back to his home setting and has agreed to our follow-up recommendations including medication compliance. SUBJECTIVE: Ok OBJECTIVE: He is secluded to his room. Minimally dressed in bed. He denies feeling suicidal or homicidal. No overt psychosis and he does not appear to be internally stimulated. Transitions of Care Critical Issues: SPECIALIST FOLLOW-UP: Psychiatry LABS AND PROCEDURES PENDING AT DISCHARGE: No pending results. Any PRN's required for agitation or anxiety since last encounter: No New problems on the unit since the last encounter: No Any new medication reactions since the last encounter: No BP 121/69 Pulse 62 Temp (Src) 97.7 (Oral) Resp 18 Ht 5' 10 (1.78m) Wt 159 lb 6.4 oz (72.3kg) SpO2 98% BMI 22.87 kg/(m2). MENTAL STATUS EXAM AT DISCHARGE: Appearance: Eccentric and Disheveled Behavior: Appropriate Orientation: Person and Place Speech/Language: The patient demonstrates appropriate tone, prosody, jo, phonetics, and syntax Mood/Affect: Suspicious Thought/Form: Tangential Thought Content: Vague Suicidal Ideations: No suicidal ideation, intent or plan. Homicidal Ideations: No homicidal ideation, intent or plan. Insight: Insight is absent Judgment: Grossly impaired Memory/Cognition: Mildly Impaired Psychomotor: Tremors GENERAL: Alert, no distress, cooperative. NEUROLOGIC: No gross abnormal findings including cranial nerves 2-12. MUSCULOSKELETAL: Normal muscle strength, Normal muscle tone. Tremors. GAIT: Normal. LABORATORY DATA: The laboratory/imaging results have been reviewed. Pertinent findings since the last assessment: No TREATMENT PLAN: 1. Biological Management: medications as ordered 2. Psychological Management Recommendations: none 3. Social Intervention Recommendations: none INFORMED CONSENT: Yes, completed with the Guardian. Discussed the risks, benefits and alternatives to the medication(s) recommended. Consent was given. ALLERGIES Allergen Reactions - Goose Feathers Allen* Unknown - Zyprexa [Olanzapine] Unknown DISCHARGE MEDICATION: Discharge Medication List as of 01/30/2018 8:00 PM CONTINUE these medications which have CHANGED QUEtiapine (SEROQUEL) 50 mg tablet Take 1 tablet by mouth twice daily. Normal, Disp-60 tablet, R-0, Long-term Dx: 1. Schizotypal disorder (HCC) amantadine HCl (SYMMETREL) 100 mg capsule Take 1 capsule by mouth twice daily. Print RX, Disp-60 capsule, R-0, Long-term carbidopa-levodopa (SINEMET) 25-100 mg per tablet Take 2 tablets by mouth every 4 hours while awake. Print RX, Disp-360 tablet, R-0, Long-term CONTINUE these medications which have NOT CHANGED carboxymethylcellulose (REFRESH CELLUVISC) 1 % ophthalmic solution Use 1 Drop in both eyes four times daily. Historical Med donepezil (ARICEPT) 23 mg tablet Take 23 mg by mouth daily at bedtime. Historical Med potassium chloride (K-TAB) 10 mEq tablet Take 10 mEq by mouth daily at bedtime. Historical Med cholecalciferol (VITAMIN D) 1,000 unit tab tablet Take 1,000 Units by mouth once daily. Historical Med STOP taking these medications haloperidol (HALDOL) 0.5 mg tablet Comments: Reason for Stopping: traZODone (DESYREL) 50 mg tablet Comments: Reason for Stopping: haloperidol lactate (HALDOL) 5 mg/mL injection Comments: Reason for Stopping: cyanocobalamin (VITAMIN B-12) 1,000 mcg/mL soln Comments: Reason for Stopping: Is Patient Discharged on Two Active Antipsychotics? No Discharge Information Row Name Admission (Discharged) from 01/23/2018 in [place]- 4th Floor Behavioral Medicine Psychiatry Follow-Up Appointment Psychiatrist Name Follow-up with psychiatrist at facility Discharge Disposition Discharge Disposition [facility] Care [facility] Referral Information Senior Care Name [facility] Address AND Phone # [phone] [place] [address] Guardian/Surrogate Decision Maker Name Conrad Govea The patient's risk for 30-day readmission is determined using the following contributing factors: Pt variables contributing to increased readmission risk: 10 Most Recent BUN Result 8.9 First Resulted Calcium During Admission 5 Number of Previous ED Visits (6 mos.) 1 Previous ED Visit (6 mos.)? 1 Insurance - Medicare 1 Barriers to Health Literacy Identified 1 Number of Hospitalizations (12 mos.) TIME OF CARE: Discharge Management: I personally spent greater than 30 minutes involved in the discharge management of this patient. SIGNATURE: Josse Balderrama MD PATIENT NAME: Sherita Jurado DATE: February 10, 2018 TIME: 3:23 PM PAGER/CONTACT #: [phone] CONSULT PROG Observed: 01/30/2018 Status: COMPLETED Source: [facility] 4:05 PM CLINIC OTHER CAMPUS REPOSITORY HNO ID: [id number] Author: German Adkins Service: Neurology General Author Type: Physician Type: Consult Progress Note Filed: 01/30/2018 4:07 PM Note Text: January 30, 2018 Neurology Consult Follow up Note Interval History: Patient seen and evaluated. No new complaints. Brief Neuro Exam: Blood pressure 131/68, pulse 61, temperature 36.3 ?C (97.3 ?F), temperature source Oral, resp. rate 16, height 177.8 cm (5' 10), weight 72.3 kg (159 lb 6.4 oz), SpO2 95 %. Alert and oriented, conversant, following commands EOMI, no dysarthria Moves all extremities Tremor still present but perhaps a little better Assessment: 72 year old male admitted with behavioral issues. His drug- induced tremor may be a little better on the higher dose of Sinemet. We are hesitant to increase further due to risk of behavior worsening. Plan: - continue current dose of Sinemet - Continue Psych care No further Neuro intervention required; signing off. Please call with further questions. German Adkins MD Staff Physician [facility] THERAPY NT Observed: 01/30/2018 Status: COMPLETED Source: [facility] 3:43 PM [facility] REPOSITORY HNO ID: [id number] Author: Katie SpencerOt/LJulio César Garcia Service: Occupational Therapy Author Type: Occupational Therapist Type: Therapy (PT/OT/Speech/Resp) Filed: 01/30/2018 3:43 PM Note Text: OCCUPATIONAL THERAPY MISSED VISIT SERVICE DATE: 01/30/2018 SERVICE TIME: 1452 to 1452 ROOM: [place] [address] Attempted Treatment. Patient not seen due to Other: See Comment (Patient attending group therapy). Will attempt to see patient later if schedule permits. SIGNATURE: Katie Garcia OT/L PATIENT NAME: Sherita Jurado DATE: January 30, 2018 TIME: 3:43 PM NURSING PROG Observed: 01/30/2018 Status: COMPLETED Source: [facility] 11:13 AM [facility] REPOSITORY HNO ID: [id number] Author: Sasha Elam RN Service: Nursing Author Type: Registered Nurse Type: Nursing Progress Note Filed: 01/30/2018 11:19 AM Note Text: Nursing Progress Note Patient Name: Sherita Jurado Patient Location: [place] [address] Daily Note: patient is alert and oriented x 2, disoriented to time, took medications without encouragement, is scheduled for discharge today at 8 pm to [facility], behaviors continue to be appropriate, covers himself when laying in bed nude, no complaints of discomfort This note was completed by: Sasha Elam RN [facility] Observed: 01/30/2018 Status: COMPLETED Source: [facility] 9:25 AM CLINIC OTHER CAMPUS REPOSITORY [facility] ID: [id number] Author: AGUSTÍN Yu Service: Music Therapy Author Type: Music Therapist Type: Allied Health Filed: 01/30/2018 9:39 AM Note Text: PROGRESS NOTE BEHAVIORAL HEALTH Topic of Note: Three Day Note / Music Therapy SERVICE DATE: 01/30/2018 SERVICE TIME: 929 Subjective: Pt is oriented to person, place, and situation. Pt's affect is appropriate, and pt's mood is calm. In therapy, pt's participation level is active and his participation quality is appropriate. In music therapy group yesterday he appeared internally stimulated, looking around room, and demonstrating sudden change in affect at times. Able to focus on discussion when invited directly engage, expressing, I always liked music. It's calming and relaxing like when I put my radio on to fall asleep... I wish I still had that. Objective: The following table accounts the patient's attendance (minutes attended / minutes offered) for all offered group therapy sessions since last report: Date ET / Group topics Attendence Comments 01/28/18 DMT/MT: Robert AND jamilae check-in AND support 0 No show but came at end and stood outside peers' [place]? 01/28/18 DMT bedside check-in; progress, feelings, hopes ? 01/29/18 MT: Connecting with others AND group goals 60/60 ? 01/29/18 Individual visits 015 Pt asleep in room Pt also receives daily 1:1 symptom/mood check-in and/or good morning group for orientation/schedule. ? Assessment: Pt has improved social skills, connecting with others during offered structured MT group. He continues to present with low self-esteem, possibly due to tremors. Making small but important progress toward connecting with others in the group. He did not express any hallucinations or delusions in recent group. He was less withdrawn and participating more than in MT last week. ? Plan: Plan is for patient to be discharged from hospital to [facility]. Following discharge, the pt would benefit from continued attendance in structured therapy groups including MT and DMT to: ? Maintain positive social structures ? Express emotions and experiences related to physical and mental health ? Maintain constructive leisure activities and coping skills [place] DMT: Dance Movement Therapy MT: Music Therapy DR: Dining Room SW: Mathematics Faculty Member ET: Expressive Therapy RT: Recreational Therapy SIGNATURE: Rosibel Aguilar MT- PATIENT NAME: Sherita Jurado DATE: January 30, 2018 TIME: 9:25 AM PAGER/CONTACT #: None NURSING PROG Observed: 01/30/2018 Status: COMPLETED Source: [place] 12:58 AM [facility] OTHER CAMPUS REPOSITORY HNO ID: [id number] Author: Michelle (Rn) JOSE Lozada Service: (none) Author Type: Registered Nurse Type: Nursing Progress Note Filed: 01/30/2018 5:20 AM Note Text: Nursing Progress Note Patient Name: Sherita Jurado Patient Location: [place] [address] Daily Note: Patient is AANDOx3. No c/o pain. No combative behaviors or agitation at present. Guarded. Compliant with HS medications, took whole with water. Was out to day area for snack x1, used walker few times as needed. Up independent to bathroom few times as needed. Frequently slams door but does not mean to. Was nude a few times in his room and going to restroom but was covered when he was laying in bed. Q15 minute safety rounds remain. 0300: pt out to day area, given something to drink, no other needs. 0350: awake in room, continues to ask staff is it break yet. Reoriented to time several times 0515: pt in room, repeatedly closes door after Q15 minute rounds. 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 book writer was sure because he thought he would stay for 6 months, patient behaviors have been appropriate, he does slam the door to his room but actions do not seem to be purposeful because he is not agitated or irritable, patient did take his clothes off while he was in his room, he kept covered, and whenever he was out of his room, he was fully dressed This note was completed by: Sasha Elam RN CASE MANAGEM Observed: 01/29/2018 Status: COMPLETED Source: [place] 3:58 PM [facility] OTHER CAMPUS REPOSITORY O ID: [id number] Author: Silva Bobby (Sw) Service: Social Work Author Type: Mathematics Faculty Member Type: Care Mgt Progress Note Filed: 01/29/2018 4:01 PM Note Text: BEHAVIORAL HEALTH SOCIAL WORK DISCHARGE NOTE SERVICE DATE: 01/29/2018 SERVICE TIME: 3:59 PM PATIENT'S DISCHARGE PLAN: Discharge Disposition Discharge Disposition: Intermediate Care Senior Care (A-L) Senior Care Referral Information Senior Care Name: [facility] Address AND Phone #: [phone] [place] [address] [facility] Referral Information [facility] Homeless Senior Living Referral Information Crisis Stabilization Unit Acute Care Facility Referral Information Assisted Living Facility Referral Information Home Care Agency Referral Information Silica Filter Operator Guardian Name: Conrad Govea Psychiatry Follow-Up Appointment Psychiatrist Name: Follow- up with psychiatrist at facility Medical Follow-Up Appointment Counselor Referral Information Case Management Referral Information Family Psychoeducational ([facility]) Follow-Up 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 Date of Trip: 01/30/18 at 8pm Type of Service: BLS Non-emergency Is Patient Medicaid Pending: No Discussion of financial coverage occurred with Guardian . Statue Carver Location: [facility] Destination: [facility] Financial Care Management Responsibility: None PRESCRIPTIONS FILLED PRIOR TO DISCHARGE: No, patient discharged to group home ADDITIONAL NOTES: Spoke with pts guardian to inform of the discharge time. CCP to be faxed on the day of discharge to the facility. SIGNATURE: BRIELLE Baldwin PATIENT NAME: Sherita Jurado DATE: January 29, 2018 TIME: 3:59 PM CASE MANAGEM Observed: 01/29/2018 Status: COMPLETED Source: [place] 1:44 PM CLINIC OTHER CAMPUS REPOSITORY HNO ID: [id number] Author: Silva Bobby (Sw) Service: Social Work Author Type: Mathematics Faculty Member Type: Care Mgt Progress Note Filed: 01/29/2018 1:53 PM Note Text: BEHAVIORAL HEALTH SOCIAL WORK PROGRESS NOTE SERVICE DATE: 01/29/2018 SERVICE TIME: 1:45 PM Pts discharge set for today was postponed until tomorrow because of transportation and payment of transportation issues. Originally arranged ambulance transportation for pt because the long distance pt would travel to the group home from the hospital. Zay Quan stated they would not be able to pick pt up until 01/31/18 at 11:00am; then they changed it to 01/30/18 at 8pm. If the mode of transportation was changed to wheelchair, pt would have been able to be discharged today but he would have needed to pay upfront $498. Call was placed to his guardian and still awaiting for a return call. Decision made to discharge pt tomorrow and he will be picked up at 8pm. Esther Casillas APN is aware of the change in his discharge. The group home is aware and will inform his guardian when he calls back. Will continue to offer pt support and structure and assist with discharge plans. SIGNATURE: BRIELLE Baldwin PATIENT NAME: Sherita Jurado DATE: January 29, 2018 TIME: 1:44 PM NURSING PROG Observed: 01/29/2018 Status: COMPLETED Source: [place] 11:21 AM [facility] REPOSITORY HNO ID: [id number] Author: Sasha Watts) JOSE Elam Service: Nursing Author Type: Registered Nurse Type: Nursing Progress Note Filed: 01/29/2018 11:23 AM Note Text: Nursing Progress Note Patient Name: Sherita Jurado Patient Location: [place] [address] Daily Note: patient is due to discharge today, patient is aware, he is appropriate with interactions, up to dining room for breakfast, currently attending group, took medications this am with little encouragement This note was completed by: Sasha Elam RN PROGRESS Observed: 01/29/2018 Status: COMPLETED Source: [place] 9:56 AM [facility] REPOSITORY HNO ID: [id number] Author: Vikram Washington Service: General Internal Medicine Author Type: Physician Type: Progress Notes Filed: 01/29/2018 10:04 AM Note Text: INTERNAL MEDICINE CONSULT PROGRESS NOTE SERVICE DATE: 01/29/2018 SERVICE TIME: 9 a, CONSULTING SERVICE: Internal Medicine Subjective INTERVAL HISTORY OF PRESENT ILLNESS: C/o not able to sleep Current Facility-Administered Medications: carbidopa-levodopa 25-100 mg 2 tablet (SINEMET 25-100) 2 tablet ORAL q 4 H while awake acetaminophen 650 mg tab(s) (TYLENOL) 650 mg ORAL q 6 H PRN aluminum-magnesium hydroxide-simethicone 200-200-20 mg/5 mL 30 mL (MAALOX,MYLANTA,MAG-AL PLUS) 30 mL ORAL q 4 H PRN magnesium hydroxide 400 mg/5 mL 30 mL (MOM) 30 mL ORAL DAILY PRN carboxymethylcellulose sodium 1 Drop (CELLUVISC) 1 Drop BOTH EYES QID cholecalciferol 1,000 Units tab(s) (VITAMIN D3) 1,000 Units ORAL DAILY potassium chloride ER 10 mEq tab(s) (K-DUR, KLOR-CON) 10 mEq ORAL AT BEDTIME haloperidol 0.25 mg tab(s) (HALDOL) 0.25 mg ORAL q 6 H PRN amantadine HCl 100 mg cap(s) (SYMMETREL) 100 mg ORAL BID donepezil (ARICEPT) tab(s) 22.5 mg 22.5 mg ORAL AT BEDTIME QUEtiapine 50 mg tab(s) (SEROquel) 50 mg ORAL BID Objective PHYSICAL EXAM: Patient Vitals for the past 24 hrs: BP Temp Temp src Pulse Resp SpO2 01/28/18 2339 104/63 36.7 ?C (98.1 ?F) Oral (!) 59 18 96 % Body mass index is 22.87 kg/m?. GENERAL: Alert, no distress, cooperative SKIN: Skin color, texture, turgor normal. No rashes or lesions. OROPHARYNX: Lips, mucosa, and tongue are normal.Teeth and gums, normal. Oropharynx normal. NECK: No jugulovenous distention, No carotid bruits, Carotid pulse normal contour, Supple LUNGS: Lungs clear to auscultation. Good diaphragmatic excursion. CARDIAC: Normal S1 and S2; no rubs, murmurs, or gallops ABDOMEN: Negative EXTREMITIES: No ulcers NEURO: Alert, oriented X 3, Cranial nerves II-XII intact PULSES: 2+ radial, 2+ carotid DATA: Diagnostic tests reviewed for today's visit: CBC, Coags, BMP, Mg, Phos Recent Labs 01/29/18 0546 01/26/18 1829 WBC 8.15 6.11 HB 15.3 14.0 HCT 45.0 40.9 PLT 249 201 NA 134* 133* K 4.1 3.9 CHLOR 96* 95* CO2 30 29 BUN 13 23 CREAT 0.61* 0.78 GLUC 96 90 CA 9.2 8.9 Impression/Recommendations Parkinson's disease - resume home medication Acute psychosis - psych treatment Mobility disorder Cognitive impairment Mild malnutrition ? Plan: Labs to follow Resume home medication DVT prophylaxis Psych treatment to continue ? SIGNATURE: Vikram Washington MD PATIENT NAME: Sherita Jurado DATE: January 29, 2018 TIME: 9:56 AM PAGER/CONTACT #: [phone] THERAPY NT Observed: 01/29/2018 Status: COMPLETED Source: [place] 8:46 AM CLIN[facility] OTHER CAMPUS REPOSITORY HNO ID: [id number] Author: Shadia Lucas Service: Physical Therapy Author Type: Industrial Maintenance Manager Type: Therapy (PT/OT/Speech/Resp) Filed: 01/29/2018 8:54 AM Note Text: Attestation signed by Jesusita SpencerPtJulio César Lucero at 01/29/2018 10:17 AM I reviewed and agree with the documentation corresponding to this therapy visit. SIGNATURE: Jesusita Lucero, PT DATE: January 29, 2018 TIME: 10:17 AM Physical Therapy Treatment SERVICE DATE: 01/29/2018 SERVICE TIME: 0800 to 1626 ROOM: [place] [address]1 Recommended Discharge Disposition: Home (Return to skilled nursing, no follow up PT anticipated.) Anticipated Discharge Needs: Physical Assist at Home Physical Assist at Home for: Cleaning;Laundry;Meals;Medication Management;Self Care;Shopping;Transportation Recommended Discharge Equipment: No equipment needs anticipated PT Recommendations to Nursing: Ambulate without device;To bathroom;In halls;With assist of 1 person Device: No Device PT 6 Clicks Score: 22 Precautions/Activity Restrictions: Fall Risk ASSESSMENT : Patient Disposition at Start of Session: Supine in Bed Patient Disposition at End of Session: OOB in Chair;Other: See Comment (In DR with staff) Tolerated Full Session Without limitations Physical Therapy Problem List: Functional Mobility Impairment;Balance Impaired Patient /Caregiver Goals: (pt non verbal during session.Most likely return to group jorge) Goals for Plan of Care: Able to perform HEP with: Verbal Cues Only (standing LE therex and higher level standing balance activit) Transfer supine to/from sit with: Modified Independent Transfer sit to/from stand with: Modified Independent Ambulate with: Supervision Distance: 250 ft or greater Device: No Device Progress Toward Goals: Progressing as expected Rehab Potential: Good PLAN: Treatment Frequency (times per week): 2 Treatment Duration (number): 2 Visits Treatment Interventions: Education;Functional Mobility Training;Balance Training Plan of Care developed with: Patient TREATMENT INTERVENTIONS: Therapy Diagnosis: Reduced mobility-other;Unsteadiness on feet;Abnormalities of gait and mobility-other Interventions Provided: Therapeutic Exercise (36840);Gait Training (25890) Therapeutic Exercise (80035) Treatment Minutes: 10 1 unit Skilled Intervention(s): Instruction in therapeutic exercise seated BLE x 20 reps each for strengthening - AP, GS, MIP, LAQ, Hip ABD, Hip ADD Standing at sink BLE hamstring curls x 20 Verbal and tactile cuing provided for proper form, pacing, and purpose. Pt performs exercises too fast with cues to slow down, good carryover noted. Gait Training (27653) Treatment Minutes: 13 1 unit Skilled Intervention(s): Instruction in sit to stand technique with proper hand placement and body positioning at edge of bed/chair, Instruction in stand to sit technique with LE's touching chair/bed and reaching back for surface, Instruction in correction of gait deviations, Instruction in use of equipment, cues for sequence and pattern. Pt amb 150ft x 2 with RW, SBA for safety, pt with increase jo, cues to slow down due to safety concerns, not UE tremors, no LOB or SOB noted, unaware of safety concerns Total Timed Code Treatment Minutes: 23 Total Treatment Time (minutes): 23 FUNCTIONAL G CODE: PT 6 Clicks Score: 22 (01/29/18 0800) Mobility: Walking and Moving Around Current Status (G8978): CK (01/23/18954) Mobility: Walking and Moving Around Goal Status (G8979): CK (01/23/18954) Based on clinical assessment and the score on the 6 Clicks Functional Assessment Tool, the G code and corresponding severity modifiers are documented above. SUBJECTIVE: Current Hospital Course: Chart reviewed and no significant medical updates relevant to therapy were noted Reason for Physical Therapy Consult : safety and functional mobility assessment Relevant Past Medical History: schizophrenia, Parkinson's with tremors, falls, Patient Report: I am OK. Home Environment Patient Lives With: Facility Care (skilled nursing) Assistance Available: 24 Hour Entry To Home: No Stairs Number Of Stairs To Bed/Bath: 0 (on ground floor) Tub/Shower Type: tub shower Equipment Owned: Hand Held Shower (may have shower chair) Prior Functional Level: History of Falls;Required Assistance Assistance Required With: Meals;Medication Management;Transportation;Shopping Prior Functional Level Comments: Per intake info from Allison, pt ambs w/o AD, indep with ADLs, facility does cleaning, laundry, meals and medications. Pt participates in group activities and outings. OBJECTIVE: CURRENT FUNCTIONAL STATUS: Current Functional Mobility Assist Level Additional Information Rolling Supine to Sit Independent Sit to Supine Independent Scooting Sit to Stand Modified Independent Stand to Sit Modified Independent Bed to Chair Toilet/Commode Gait Stand By Assistance Gait Device: Wheeled Walker Gait Distance (feet): 240' Stairs Curb Step Car Transfer General Gait Deviations: Narrow Base of Support (step through pattern) Activity Tolerance: Standing Activity Standing Activity: standing blance activities: unilateral stance, staggered stance, MIP, 360 deg turns to right and left Standing Activity Tolerance (in minutes): 10 (with UE support) Please see discipline specific clinical documentation flowsheet for complete details for this therapy evaluation/treatment. SIGNATURE: Shadia Lucas PTA PATIENT NAME: Sherita Jurado DATE: January 29, 2018 TIME: 8:47 AM NURSING PROG Observed: 01/29/2018 Status: COMPLETED Source: [place] 6:48 AM [facility] OTHER CAMPUS REPOSITORY O ID: [id number] Author: Jamila (Rn) JOSE Barrett Service: Nursing Author Type: Registered Nurse Type: Nursing Progress Note Filed: 01/29/2018 6:58 AM Note Text: Nursing Progress Note Patient Name: Sherita Jurado Patient Location: [place]/ [place]-* Daily Note:Pt was in bed, resting comfortably. Pt took HS meds w/o difficultly. Pt was assisted to the bathroom as needed.Pt was restless in the evening and began to pace the hallways. Pt sat in the DR for a short time then chose to sit on the floor in the hallway. When staff asked what happed pt stated I sat down, staff asked if he was hurt or felt dizzy And pt stated that he was fine and told staff to leave him alone so he could sleep. Staff explained that he shouldn't sit or sleep in the hallway or on the floor. Registered Nurse Gabriela WILBURN and WINSTON Carver were notified. Pt was assisted back to bed. No s/s of pain or distress. Pt slept intermitantly. This note was completed by: Jamila Barrett RN CBC AND DIFFERENTIAL Collected: 01/29/2018 Status: F Source: [place] 5:46 AM CLINIC OTHER CAMPUS REPOSITORY TYPE CODE TESTS RESULT OUT OF REFERENCE UNITS RANGE LAB WBC 3.70-11.00 k/uL WBC 8.15 LAB RBC 4.20-6.00 m/uL RBC 4.58 LAB HGB 13.0-17.0 g/dL Hemoglobin 15.3 LAB HCT 39.0-51.0 % Hematocrit 45.0 LAB MCV 80.0-100.0 fL MCV 98.3 LAB MCH 26.0-34.0 pG MCH 33.4 LAB MCHC 30.5-36.0 g/dL MCHC 34.0 LAB RDWCV 11.5-15.0 % RDW-CV 12.6 LAB PLTCT 150-400 k/uL Platelet Count 249 LAB MPV 9.0-12.7 fL MPV 10.1 LAB ANEUT % Neut% 70.7 LAB AANEUT 1.45-7.50 k/uL Abs Neut 5.76 LAB ALYMP % Lymph% 21.1 LAB AALYMP 1.00-4.00 k/uL Abs Lymph 1.72 LAB AMONO % Ceiba% 6.5 LAB AAMONO <0.87 k/uL Abs Ceiba 0.53 LAB AEOS % Eosin% 1.3 LAB AAEOS <0.46 k/uL Abs Eosin 0.11 LAB ABASO % Baso% 0.4 LAB AABASO <0.11 k/uL Abs Baso 0.03 LAB DTYP DTYPE Auto Diff BASIC METABOLIC PANL Collected: 01/29/2018 Status: F Source: [place] 5:46 AM [facility] OTHER CAMPUS REPOSITORY TYPE CODE TESTS RESULT OUT OF REFERENCE UNITS RANGE LAB GLU 65-100 mg/dL Glucose 96 LAB BUN 8-25 mg/dL BUN 13 LAB CRET 0.7-1.4 mg/dL Low Creatinine 0.61 LAB NA 135-146 mmol/L Low Sodium 134 LAB K 3.5-5.0 mmol/L Potassium 4.1 LAB CL 98-110 mmol/L Low Chloride 96 LAB CO2 23-32 mmol/L CO2 30 LAB AGAP 0-15 mmol/L Anion Gap 8 LAB CA 8.5-10.5 mg/dL Calcium, Total 9.2 THERAPY NT Observed: 01/28/2018 Status: COMPLETED Source: [place] 4:32 PM [facility] OTHER CAMPUS REPOSITORY HNO ID: [id number] Author: Jesusita (Pt) Holter Service: Physical Therapy Author Type: Physical Therapist Type: Therapy (PT/OT/Speech/Resp) Filed: 01/28/2018 4:41 PM Note Text: Physical Therapy Treatment SERVICE DATE: 01/28/2018 SERVICE TIME: 1603 to 1626 ROOM: [place] [address]1 Recommended Discharge Disposition: Home (Return to skilled nursing, no follow up PT anticipated.) Anticipated Discharge Needs: Physical Assist at Home Physical Assist at Home for: Cleaning;Laundry;Meals;Medication Management;Self Care;Shopping;Transportation Recommended Discharge Equipment: No equipment needs anticipated PT Recommendations to Nursing: Ambulate without device;To bathroom;In halls;With assist of 1 person Device: No Device PT 6 Clicks Score: 22 Precautions/Activity Restrictions: Fall Risk ASSESSMENT : Patient Disposition at Start of Session: Supine in Bed Patient Disposition at End of Session: OOB in Chair Tolerated Full Session Without limitations Physical Therapy Problem List: Functional Mobility Impairment;Balance Impaired Patient /Caregiver Goals: (pt non verbal during session.Most likely return to group jorge) Goals for Plan of Care: Able to perform HEP with: Verbal Cues Only (standing LE therex and higher level standing balance activit) Transfer supine to/from sit with: Modified Independent Transfer sit to/from stand with: Modified Independent Ambulate with: Supervision Distance: 250 ft or greater Device: No Device Progress Toward Goals: Progressing as expected Rehab Potential: Good PLAN: Treatment Frequency (times per week): 2 Treatment Duration (number): 2 Visits Treatment Interventions: Education;Functional Mobility Training;Balance Training Plan of Care developed with: Patient TREATMENT INTERVENTIONS: Therapy Diagnosis: Reduced mobility-other;Unsteadiness on feet;Abnormalities of gait and mobility-other Interventions Provided: Therapeutic Exercise (79231);Therapeutic Activity (76227);Gait Training (61346) Therapeutic Exercise (85364) Treatment Minutes: 8 1 unit Skilled Intervention(s): Instruction in therapeutic exercise Standing BLE ther ex: ankle pf x 20, MIP x 10, forward leg raises x 10, mini-squats x 10, hip AB x 10, hip ext x 10, knee flex x 10; Verbal and tactile cuing provided Therapeutic Activity (99526) Treatment Minutes: 10 0 units Skilled Intervention(s): Education with patient: reviewed POC, safety while in hospital; reviewed orientation and current situation Pt performed dyn standing balance activity with contact guard of bilateral hand held assist: Side stepping to R and to L for [address] Amb backwards for 50 feet Gait Training (14664) Treatment Minutes: 5 1 unit Skilled Intervention(s): Instruction in use of equipment, cues for sequence and pattern and cues for posture; to avoid quick turns with walker due to potential risk for falling; Pt had to stop and stand to adjust his loose pants a couple times during ambulation attempt; pt advised to ambulate using walker on the unit for safety and improve dyn standing balance Total Timed Code Treatment Minutes: 23 Total Treatment Time (minutes): 23 FUNCTIONAL G CODE: PT 6 Clicks Score: 22 (01/28/18 8853) Mobility: Walking and Moving Around Current Status (G8978): CK (01/23/18954) Mobility: Walking and Moving Around Goal Status (G8979): CK (01/23/18954) Based on clinical assessment and the score on the 6 Clicks Functional Assessment Tool, the G code and corresponding severity modifiers are documented above. SUBJECTIVE: Current Hospital Course: Chart reviewed and no significant medical updates relevant to therapy were noted Reason for Physical Therapy Consult : safety and functional mobility assessment Relevant Past Medical History: schizophrenia, Parkinson's with tremors, falls, Patient Report: What do you want me to do? Home Environment Patient Lives With: Facility Care (skilled nursing) Assistance Available: 24 Hour Entry To Home: No Stairs Number Of Stairs To Bed/Bath: 0 (on ground floor) Tub/Shower Type: tub shower Equipment Owned: Hand Held Shower (may have shower chair) Prior Functional Level: History of Falls;Required Assistance Assistance Required With: Meals;Medication Management;Transportation;Shopping Prior Functional Level Comments: Per intake info from [facility], pt ambs w/o AD, indep with ADLs, facility does cleaning, laundry, meals and medications. Pt participates in group activities and outings. OBJECTIVE: Pt was seen on the division, pt was in his room in bed without clothes on per nursing, nursing went into room to ask pt to put on clothes prior to participating in therapy. Pt was compliant and got dressed himself Pt was alert and oriented to self, month; Pt would answer questions non-sensically; Pt was able to follow 2 step commands CURRENT FUNCTIONAL STATUS: Current Functional Mobility Assist Level Additional Information Rolling Supine to Sit Independent Sit to Supine Supervision Scooting Sit to Stand Supervision Stand to Sit Supervision Bed to Chair Toilet/Commode Gait Stand By Assistance Gait Device: Wheeled Walker Gait Distance (feet): 240' Stairs Curb Step Car Transfer General Gait Deviations: Narrow Base of Support (step through pattern) Activity Tolerance: Standing Activity Standing Activity: standing blance activities: unilateral stance, staggered stance, MIP, 360 deg turns to right and left Standing Activity Tolerance (in minutes): 10 (with UE support) Pt requested to remain sitting up in chair in his room, door was left open, staff aware Please see discipline specific clinical documentation flowsheet for complete details for this therapy evaluation/treatment. SIGNATURE: Jesusita Lucero PT PATIENT NAME: Sherita Jurado DATE: January 28, 2018 TIME: 4:32 PM CASE MANAGEM Observed: 01/28/2018 Status: COMPLETED Source: [place] 3:22 PM [facility] OTHER CAMPUS REPOSITORY HNO ID: [id number] Author: Silva Bobby (Sw) Service: Social Work Author Type: Mathematics Faculty Member Type: Care Mgt Progress Note Filed: 01/28/2018 3:24 PM Note Text: BEHAVIORAL HEALTH SOCIAL WORK PROGRESS NOTE SERVICE DATE: 01/28/2018 SERVICE TIME: 3:22 PM Spoke with pts guardian, Conrad, to discuss discharge plans. Informed him to pt would be discharged tomorrow back to [facility]. Updated information sent to facility and they will accept pt back. Guardian in agreement with discharge plans. Will continue to offer pt support and structure and assist with discharge plans. SIGNATURE: BRIELLE Baldwin PATIENT NAME: Sherita Jurado DATE: January 28, 2018 TIME: 3:22 PM PROGRESS Observed: 01/28/2018 Status: COMPLETED Source: [place] 11:49 AM CLIN[facility] OTHER CAMPUS REPOSITORY HNO ID: [id number] Author: Josse Balderrama Service: Psychiatry Author Type: Physician Type: Progress Notes Filed: 01/29/2018 10:58 AM Note Text: PROGRESS NOTE BEHAVIORAL HEALTH SERVICE DATE: 01/28/2018 SERVICE TIME: 11:49 AM The Interdisciplinary team met and reviewed treatment goals and discharge planning. Subjective Has been secluded to self; denies hallucinations or delusions. Does not go to any groups. No exit seeking behaviors. Objective PHYSICAL EXAM: BP 127/59 Pulse 68 Temp 37.1 ?C (98.8 ?F) Resp 16 Ht 177.8 cm (5' 10) Wt 72.3 kg (159 lb 6.4 oz) SpO2 96% BMI 22.87 kg/m? MENTAL STATUS EXAMINATION: Appearance: Casually dressed Behavior: Disorganized Orientation: Person Speech/Language: Soft and Slow Mood/Affect: Suspicious Thought Form: Tangential Thought Content: Vague Suicidal Ideations: No suicidal ideation, intent or plan. Homicidal Ideations: No homicidal ideation, intent or plan. Insight: Limited Judgment: Limited Memory/Cognition: Mildly Impaired Psychomotor: Psychomotor activity was normal NEW PROBLEMS ON UNIT SINCE LAST ENCOUNTER: None Current hospital medications: carbidopa-levodopa 25-100 mg 2 tablet (SINEMET 25-100) 2 tablet ORAL q 4 H while awake acetaminophen 650 mg tab(s) (TYLENOL) 650 mg ORAL q 6 H PRN aluminum-magnesium hydroxide-simethicone 200-200-20 mg/5 mL 30 mL (MAALOX,MYLANTA,MAG-AL PLUS) 30 mL ORAL q 4 H PRN magnesium hydroxide 400 mg/5 mL 30 mL (MOM) 30 mL ORAL DAILY PRN carboxymethylcellulose sodium 1 Drop (CELLUVISC) 1 Drop BOTH EYES QID cholecalciferol 1,000 Units tab(s) (VITAMIN D3) 1,000 Units ORAL DAILY potassium chloride ER 10 mEq tab(s) (K-DUR, KLOR-CON) 10 mEq ORAL AT BEDTIME haloperidol 0.25 mg tab(s) (HALDOL) 0.25 mg ORAL q 6 H PRN amantadine HCl 100 mg cap(s) (SYMMETREL) 100 mg ORAL BID donepezil (ARICEPT) tab(s) 22.5 mg 22.5 mg ORAL AT BEDTIME QUEtiapine 50 mg tab(s) (SEROquel) 50 mg ORAL BID DATA: Diagnostic tests reviewed for today's visit: Most recent labs and imaging results. Assessment/Plan DIAGNOSIS: 1. PRIMARY: Schizoaffective Disorder GAF: -30-21 Behavior is considerably influenced by delusions or hallucination or serious impairment in communication or judgment RISK ASSESSMENT: Suicide: low Homicide: low Deliberate Self-Harm: low Aggression: low Imminent Physical Self Impairment: low INFORMED CONSENT: Yes, completed with the Guardian. Discussed the risks, benefits and alternatives to the medication(s) recommended. Consent was given. INTERVENTION: Biological: see orders; seroquel and aricept as ordered Psychological: group and behavioral therapy Social: placement DISCHARGE PLANNING: Discharge by perhaps or Friday. SIGNATURE: Diana Casillas APRN.CNP PATIENT NAME: Sherita Jurado DATE: January 28, 2018 TIME: 11:49 AM PAGER/CONTACT#: [phone] I saw the patient and have read and reviewed the RESIDENT INSPECTOR's note and findings. I have discussed the RESIDENT INSPECTOR's findings and plan as documented in the RESIDENT INSPECTOR's note. Josse Balderrama MD NURSING PROG Observed: 01/28/2018 Status: COMPLETED Source: [facility] 10:19 AM [facility] OTHER CAMPUS REPOSITORY [facility] ID: [id number] Author: Magdalena Pace RN Service: (none) Author Type: Registered Nurse Type: Nursing Progress Note Filed: 01/28/2018 3:28 PM Note Text: Nursing Progress Note Patient Name: Sherita Jurado Patient Location: [address]/ [place]-* Daily Note:refuses groups, preoccupied with a question of internal stimulation. Reclusive, behavioral controls intact thus far. No barricading and/or slamming doors. This note was completed by: Magdalena Pace RN NUTRITION Observed: 01/28/2018 Status: COMPLETED Source: [facility] 9:48 AM CLINIC OTHER CAMPUS REPOSITORY [facility] ID: [id number] Author: Tanya Clements Service: Nutrition Therapy Author Type: Registered Dietitian Type: Nutrition Filed: 01/28/2018 10:13 AM Note Text: NUTRITION THERAPY INITIAL ASSESSMENT SERVICE DATE: 01/28/2018 SERVICE TIME: 10:09 AM RECOMMENDED MALNUTRITION DIAGNOSIS: SEVERE PROTEIN-CALORIE MALNUTRITION In the context of Chronic Illness or Injury based on: Unintentional Weight Loss: >10% in 6 months Insufficient Energy Intake: Less than 75% energy intake compared to estimated needs for greater than or equal to 1 month Subcutaneous Fat Loss: Moderate Loss Muscle Loss Moderate Loss NUTRITION CARE PLAN: Problem, Etiology and Signs/Symptoms: Suboptimal oral intake related to chewing and feeding difficulty and as evidenced by poor dentition, intake data and significant weight loss x 6 months. Intervention: 1. Downgrade diet to dental soft 2. Ensure high protein (160 kcal, 16 gm protein each) TID 3. Please provide feeding assistance to encourage po intake Monitor and Evaluation: Goal: Meet >75% of estimated needs Monitor fluid/electrolyte balance Monitor labs, I/Os, vital signs, weight Discharge Nutrition Recommendations: Diet: regular Supplements: per pt preference prn Per HPI: Sherita presents for admission secondary to combative behavior at the group home. Per Behavior medicine intake: Sherita Jurado is a 72 year old male?brought in to [place]by caregiver??for behavioral problems.Pt has hx.of Schizophrenia, Parkinsons,falls,tremors and dizziness. Recently he has not been taking his medications at the group home and he has been laying around on the floors of the NH naked, also naked in his room and will not allow staff to close his door. Pt denies any SI/HI and denies AVH, just states he is having some nightmares at times but he cannot be specific about them. Pt answers questions with short responses but was calm and cooperative during interview. Tox screen is negative. Pts MA-Cata Walker requests pt be evaluated for medication changes before he returns as they state they cannot manage him. Pt has poor in-sight and judgement but agreeable with admission, and has been cooperative in ED as well.?'? patient has a long history of schizophrenia. He also carries a diagnosis of dementia. Patient became physically aggressive last night and they had to call a CODEVIOLET. He got a when necessary for Haldol 5 mg. He has had previous psychiatric hospitalizations most recent being on September 12 at [facility]. Patient also has been gone going to neurology movement disorder specialist. PAST MEDICAL HISTORY Diagnosis Date - Actinic keratosis - Breast lump LT breast; cavernous hemangioma/excised - Dizziness - Epidermoid cyst of skin - Falls - Lipoma of skin forearms and abdomen - Mammogram abnormal suspicious of cancer- referral made - Obesity - On retirement drug therapy - Palpitations - Parkinson disease (HCC) - Schizophrenia (HCC) - Tremor - Vitamin D deficiency PSYCHOSIS Current Diet Order DIET REGULAR Supplement 1 Frequency: 7. BREAKFAST, LUNCH, DINNER Supplement 1: ENSURE HIGH PROTEIN VANILLA There are no questions and answers to display. There are no questions and answers to display. Nutritional Intake Prior to Admission: Unable to determine - review of RD notes from [place] last month reveal suboptimal intake Met with pt this morning in pt's room. States his appetite has been good. Denies difficulty chewing or swallowing. Pt edentulous - missing dentures. Per I/O's pt averaging 46% of meals x 6 days - not nutritionally adequate. Suspect difficulty chewing and shaking hands are contributing to pt's inability to consume sufficient nutrients. To downgrade diet to dental soft and add vanilla ensure high protein TID to add an additional 480 and 48 gm protein daily. Progressive weight loss noted. GI symptoms: chewing problems Nutrition Abdominal Exam: and abdomen is soft ANTHROPOMETRICS Height: 177.8 cm (5' 10) Admission Weight: 72.6 kg (160 lb) Current Weight: 72.3 kg (159 lb 6.4 oz) Body mass index is 22.87 kg/m?. underweight for age Weight has decreased by 13.1 kg over 6 months representing 15.4 % weight change clinically significant Last Wt 01/24/18 : 72.3 kg (159 lb 6.4 oz) 01/22/18 : 75.3 kg (166 lb) 12/17/17 : 75.4 kg (166 lb 3.2 oz) 12/17/17 : 77 kg (169 lb 12.8 oz) 12/16/17 : 78.5 kg (173 lb) 12/10/17 : 74.8 kg (165 lb) 11/12/17 : 78.1 kg (172 lb 3.2 oz) 10/16/17 : 78.9 kg (174 lb) 09/09/17 : 76.8 kg (169 lb 4.8 oz) 09/03/17 : 83.5 kg (184 lb) 08/25/17 : 83.5 kg (184 lb) 08/04/17 : 85.3 kg (188 lb) 07/24/17 : 85.4 kg (188 lb 3.2 oz) 02/06/17 : 93 kg (205 lb) 11/08/16 : 94.3 kg (208 lb) 11/30/15 : 97.1 kg (214 lb) 01/10/16 : 99.3 kg (219 lb) IBW: 72.7 kg for BMI >/=23 Dosing Weight: 72.3 kg Resting Metabolic Rate: 1479 Estimated kilocalorie needs: 2851-9368 kilocalories determined by 25-30 kcal/kg Estimated protein needs: 87-115 grams determined by 1.2-1.6 g/kg Dosing weight Estimated fluid needs: 0902-2107 milliliters based on 1 mL per kcal NUTRITION FOCUSED PHYSICAL EXAM: Subcutaneous Fat Loss Orbital Moderate Triceps Moderate Mid-axillary at the iliac crest Unable to determine at this time Muscle Loss Locations: Temporalis Moderate Pectoralis Mild - Moderate Deltoids Moderate Interosseous Mild Latissimus dorsi, trapezius Unable to determine at this time Quadriceps Unable to determine at this time Gastrocnemius Unable to determine at this time Potential micronutrient deficiency revealed in: Skin - poor turgor Teeth - missing Edema: No Ascites: No Assessment of Functional Status: Functional capacity is unrelated to nutrition status Temperature Max in 24 hours: Temp (24hrs), Av.1 ?C (98.8 ?F), Min:37.1 ?C (98.8 ?F), Max:37.1 ?C (98.8 ?F) BP 127/59 Pulse 68 Temp 37.1 ?C (98.8 ?F) Resp 16 Ht 177.8 cm (5' 10) Wt 72.3 kg (159 lb 6.4 oz) SpO2 96% BMI 22.87 kg/m? Recent Labs 01/26/18 1829 GLUC 90 BUN 23 CREAT 0.78 NA 133* K 3.9 CHLOR 95* CO2 29 HB 14.0 HCT 40.9 WBC 6.11 Potential Signs of Inflammation: no identifiable sources Current Facility-Administered Medications: carbidopa-levodopa 25-100 mg 2 tablet (SINEMET 25-100) 2 tablet ORAL q 4 H while awake acetaminophen 650 mg tab(s) (TYLENOL) 650 mg ORAL q 6 H PRN aluminum-magnesium hydroxide-simethicone 200-200-20 mg/5 mL 30 mL (MAALOX,MYLANTA,MAG-AL PLUS) 30 mL ORAL q 4 H PRN magnesium hydroxide 400 mg/5 mL 30 mL (MOM) 30 mL ORAL DAILY PRN carboxymethylcellulose sodium 1 Drop (CELLUVISC) 1 Drop BOTH EYES QID cholecalciferol 1,000 Units tab(s) (VITAMIN D3) 1,000 Units ORAL DAILY potassium chloride ER 10 mEq tab(s) (K-DUR, KLOR-CON) 10 mEq ORAL AT BEDTIME haloperidol 0.25 mg tab(s) (HALDOL) 0.25 mg ORAL q 6 H PRN amantadine HCl 100 mg cap(s) (SYMMETREL) 100 mg ORAL BID donepezil (ARICEPT) tab(s) 22.5 mg 22.5 mg ORAL AT BEDTIME QUEtiapine 50 mg tab(s) (SEROquel) 50 mg ORAL BID MNT Billing Type: Initial Assess/15 min 4 units SIGNATURE: Tanya Clements RD,LD PATIENT NAME: Sherita Jurado DATE: January 28, 2018 TIME: 9:48 AM PAGER: [phone] NURSING PROG Observed: 01/28/2018 Status: COMPLETED Source: [facility] 9:22 AM CLINIC OTHER CAMPUS REPOSITORY [facility] ID: [id number] Author: Magdalena Pace, RN Service: (none) Author Type: Registered Nurse Type: Nursing Progress Note Filed: 01/28/2018 9:34 AM Note Text: Nursing Progress Note Patient Name: Sherita Jurado Patient Location: [place] Daily Note:A+Ox2, affect blunted, mood euthymic, conversation impoverished. Cooperative with medications and exhibiting less tremors. Seclusive to room other than for meals. Pilot Can Router to see pt. Good eye contact, ate well, no SOB, no significant pain. Guarded, denies hallucinations and no delusions voiced as of yet. No eye darting, preoccupied though. Able to answer questions clearly yet with 1-2 word responses. In no acute distress, safety measures taken. This note was completed by: Magdalena Pace RN NURSING PROG Observed: 01/28/2018 Status: COMPLETED Source: [facility] 2:14 AM [facility] OTHER CAMPUS REPOSITORY O ID: [id number] Author: Cynthia Watts) JOSE Kibry Service: (none) Author Type: Registered Nurse Type: Nursing Progress Note Filed: 01/28/2018 5:56 AM Note Text: Nursing Progress Note Patient Name: Sherita Jurado Patient Location: [place] Daily Note: 1955 Patient was awake, resting in bed, eyes closed, patient denied any hallucination but patient was suspicious and was closing the door, patient came out for HS snacks, gait unstable, patient was quick and walking fast, asked patient to use walker, patient ate HS snacks. 2039 Patient took HS medications whole with water and quickly went back to bed. 2300 Patient was sleeping, no s/s of distress noted. 5 Patient was sleeping. 0550 Patient was sleeping, no s/s of distress noted. This note was completed by: Cynthia Kirby RN CONSULT PROG Observed: 01/27/2018 Status: COMPLETED Source: [facility] 5:25 PM [facility] REPOSITORY HNO ID: [id number] Author: German Adkins Service: Neurology General Author Type: Physician Type: Consult Progress Note Filed: 01/27/2018 5:27 PM Note Text: January 27, 2018 Neurology Consult Follow up Note Interval History: Patient seen and evaluated. No new complaints. Tremor at times today was better. He is able to feed himself. Brief Neuro Exam: Blood pressure 129/73, pulse 67, temperature 37.3 ?C (99.1 ?F), resp. rate 18, height 177.8 cm (5' 10), weight 72.3 kg (159 lb 6.4 oz), SpO2 95 %. Alert and oriented, conversant, following commands EOMI, no dysarthria Moves all extremities Tremor present at rest Assessment: 72 year old male admitted with behavioral issues, with drug- induced tremor that improved a little more on higher doses of Sinemet. It may be riskier to push the dose even higher, given his psychiatric issues. Since his tremor doesn't really bother him, we will not increase the dose. Plan: - continue Sinemet 2 pills per dose Will continue to follow intermittently German Adkins MD Staff Physician [facility] THERAPY NT Observed: 01/27/2018 Status: COMPLETED Source: [facility] 3:52 PM [facility] REPOSITORY [facility]NO ID: [id number] Author: Silva Melendez/ERIK Dallas Service: Occupational Therapy Author Type: Rv Service Technician Type: Therapy (PT/OT/Speech/Resp) Filed: 01/27/2018 3:59 PM Note Text: Attestation signed by Kelsey Gong at 01/27/2018 4:53 PM I reviewed and agree with the documentation corresponding to this therapy visit. SIGNATURE: Kelsey Gong, OTR/L DATE: January 27, 2018 TIME: 4:52 PM Occupational Therapy Treatment SERVICE DATE: 01/27/2018 SERVICE TIME: 1520 to 1543 [address]OM: [address] Recommended Discharge Disposition: Home (to prior skilled nursing) Anticipated Discharge Needs: Physical Assist at Home Physical Assist at Home for: Cleaning;Laundry;Meals;Medication Management;Self Care;Shopping;Transportation OT Recommendations to Nursing: To Bathroom for ADL?s /and or Toileting;Edge of bed ADL?s;OOB for meals;ADL?s in chair Equipment: Wheeled Walker OT 6 Clicks Score: 18 Precautions/Activity Restrictions: Fall Risk ASSESSMEN. Patient Disposition at Start of Session: Supine in Bed Patient Disposition at End of Session: Supine in Bed Tolerated Full Session Occupational Therapy Problem List: Cognitive Deficit;Safety Deficits;Impaired Self Care;Decreased Activity Tolerance;Decreased Range Of Motion;Decreased Strength;Functional Mobility Impairment;Balance Impaired Patient /Caregiver Goals: Go Home (return to skilled nursing) Goals for Plan of Care: Upper Body Bathing with: Set Up Upper Body Dressing with: Modified Independent Lower Body Bathing with: Verbal Cues Only Lower Body Dressing with: Verbal Cues Only Progress Toward Goals: Progressing as expected Rehab Potential: Good PLAN: Treatment Frequency (times per week): 3 Current admission Treatment Interventions: Education;Self Care / Home Management;Energy Conservation Training;Joint Mobility;Strengthening;Functional Mobility Training;Balance Training;Cognitive Training Plan of Care developed with: Patient TREATMENT INTERVENTIONS: Therapy Diagnosis: Reduced mobility-other;Decreased activities of daily living (ADL);Muscle Weakness (generalized);Unsteadiness on feet Interventions Provided: Self Custodial Management (32045) Self Custodial Management (33358) Treatment Minutes: 23 2 units Skilled Intervention(s): Nursing approved of treatment session. Pt sleeping in bed when CAMILO entered room but easy to awaken. Pt cooperative and willing to participate in OT session. Pt was lying very close to EOB when CAMILO entered room, education for safety. Provided instruction, cuing and facilitation for upper body dressing: don ear pull machine operator shirt. Provided instruction, cuing and facilitation for lower body dressing: SBA don hospital socks using figure 4 technique, CGA when standing to arrange pants (Pt moves quickly and slightly unsteady). Provided instruction, cuing and facilitation for bathing: UB/LB sponge bathing with package wipes, CGA when standing for bathing kayy/buttocks. Pt ambulating without device, Pt slightly unsteady, education for using walker (Pt receptive to suggestion). Total Timed Code Treatment Minutes: 23 Total Treatment Time (minutes): 23 FUNCTIONAL G CODE: OT 6 Clicks Score: 18 (01/27/18 1520) Self Care Current Status (G8987): CK (01/25/18 1120) Self Care Goal Status (G8988): CJ (01/25/18 1120) Based on clinical assessment and the score on the 6 Clicks Functional Assessment Tool, the G code and corresponding severity modifiers are documented above. SUBJECTIVE: Current Hospital Course: Chart reviewed and no significant medical updates relevant to therapy were noted Reason for Occupational Therapy Consult: safety assessment Relevant Past Medical History: schizophrenia, Parkinson's with tremors, falls, Patient Report: Sure, I'll work with you. Home Environment Patient Lives With: Facility Care (skilled nursing) Assistance Available: 24 Hour Entry To Home: No Stairs Number Of Stairs To Bed/Bath: 0 (on ground floor) Tub/Shower Type: tub shower Equipment Owned: Hand Held Shower (may have shower chair) Prior Functional Level: History of Falls;Required Assistance Assistance Required With: Meals;Medication Management;Transportation;Shopping Prior Functional Level Comments: Per intake info from [facility] w/o AD, indep with ADLs, facility does cleaning, laundry, meals and medications. Pt participates in group activities and outings. OBJECTIVE: Communication Deficits: Non-verbal (pt mostly non-verbal, 1-2 words, quiet/limited responses) Responsiveness: Alert Follows Commands: 1-step Commands;2-step Commands;Cueing Needed Cueing to Follow Commands: Moderate (min cues 1-step, mod cues 2-step commands) CURRENT FUNCTIONAL STATUS: Current Activities of Daily Living Assist Level Feeding Set Up Grooming Contact Guard Assistance (in stance at sink, slightly unsteady in stance) Bathing Upper Body Supervision Bathing Lower Body Contact Guard Assistance (when in stance for balance) Dressing Upper Body Set Up (don ear pull machine operator shirt) Dressing Lower Body Contact Guard Assistance (when standing to arrange, SBA for socks) Toileting Minimal Assistance (min A clothing mgmt, transfer/kayy care mod I) Instrumental Activities of Daily Living Assist Level Meal/Beverage Prep Light Cleaning Laundry Medication Management with Strategies Functional Mobility Assist Level Rolling Supine to Sit Contact Guard Assistance (pt move quickly, CGA d/t pt impulsive) Sit to Supine Stand By Assistance (pt move quickly/suddenly, poor safety awareness, + cues) Scooting Sit to Stand Contact Guard Assistance (for safety) Stand to Sit Contact Guard Assistance (for safety ) Bed to Chair Toilet/Commode Functional Mobility Contact Guard Assistance Other: See Comment (pt without AD, moves quickly, education use NSRW) Please see discipline specific clinical documentation flowsheet for complete details for this therapy evaluation/treatment. SIGNATURE: ERIK Sanderson PATIENT NAME: Sherita Jurado DATE: January 27, 2018 TIME: 3:52 PM PROGRESS Observed: 01/27/2018 Status: COMPLETED Source: [facility] 12:36 PM CLINIC OTHER CAMPUS REPOSITORY O ID: [id number] Author: Vikram Washington Service: General Internal Medicine Author Type: Physician Type: Progress Notes Filed: 01/27/2018 10:12 PM Note Text: INTERNAL MEDICINE CONSULT PROGRESS NOTE SERVICE DATE: 01/27/2018 SERVICE TIME: 7 am CONSULTING SERVICE: Internal Medicine Subjective INTERVAL HISTORY OF PRESENT ILLNESS: Denies any chest pain or SOB Current Facility-Administered Medications: carbidopa-levodopa 25-100 mg 2 tablet (SINEMET 25-100) 2 tablet ORAL q 4 H while awake acetaminophen 650 mg tab(s) (TYLENOL) 650 mg ORAL q 6 H PRN aluminum-magnesium hydroxide-simethicone 200-200-20 mg/5 mL 30 mL (MAALOX,MYLANTA,MAG-AL PLUS) 30 mL ORAL q 4 H PRN magnesium hydroxide 400 mg/5 mL 30 mL (MOM) 30 mL ORAL DAILY PRN carboxymethylcellulose sodium 1 Drop (CELLUVISC) 1 Drop BOTH EYES QID cholecalciferol 1,000 Units tab(s) (VITAMIN D3) 1,000 Units ORAL DAILY potassium chloride ER 10 mEq tab(s) (K-DUR, KLOR-CON) 10 mEq ORAL AT BEDTIME haloperidol 0.25 mg tab(s) (HALDOL) 0.25 mg ORAL q 6 H PRN amantadine HCl 100 mg cap(s) (SYMMETREL) 100 mg ORAL BID donepezil (ARICEPT) tab(s) 22.5 mg 22.5 mg ORAL AT BEDTIME QUEtiapine 50 mg tab(s) (SEROquel) 50 mg ORAL BID Objective PHYSICAL EXAM: Patient Vitals for the past 24 hrs: BP Temp Temp src Pulse Resp SpO2 01/27/18 0826 129/73 37.3 ?C (99.1 ?F) - 67 18 95 % 01/26/18 1900 119/53 36.6 ?C (97.9 ?F) Oral 74 18 94 % Body mass index is 22.87 kg/m?. GENERAL: Alert, no distress, cooperative SKIN: Skin color, texture, turgor normal. No rashes or lesions. OROPHARYNX: negative NECK: No jugulovenous distention, Supple LUNGS: Lungs clear to auscultation. Good diaphragmatic excursion. CARDIAC: Normal S1 and S2; no rubs, murmurs, or gallops ABDOMEN: Abdomen soft, non-tender, BS normal, No masses or organomegaly EXTREMITIES: No ulcers NEURO: Negative PULSES: 2+ radial, 2+ carotid DATA: Diagnostic tests reviewed for today's visit: CBC, Coags, BMP, Mg, Phos Recent Labs 01/26/18 1829 WBC 6.11 HB 14.0 HCT 40.9 PLT 201 NA 133* K 3.9 CHLOR 95* CO2 29 BUN 23 CREAT 0.78 GLUC 90 CA 8.9 Impression/Recommendations Parkinson's disease - resume home medication Acute psychosis - psych treatment Mobility disorder Cognitive impairment Mild malnutrition ? Plan: Labs to follow Resume home medication DVT prophylaxis Psych treatment to continue SIGNATURE: Vikram Washington MD PATIENT NAME: Sherita Jurado DATE: January 27, 2018 TIME: 12:36 PM PAGER/CONTACT #: [phone] THERAPY NT Observed: 01/27/2018 Status: COMPLETED Source: [facility] 11:55 AM CLINIC OTHER CAMPUS REPOSITORY [facility] ID: [id number] Author: Po Latif Service: Physical Therapy Author Type: Industrial Maintenance Manager Type: Therapy (PT/OT/Speech/Resp) Filed: 01/27/2018 11:59 AM Note Text: Attestation signed by Jesusita SpencerPt) Jazmine at 01/27/2018 12:10 PM I reviewed and agree with the documentation corresponding to this therapy visit. SIGNATURE: Jesusita Lucero, PT DATE: January 27, 2018 TIME: 12:10 PM Physical Therapy Treatment SERVICE DATE: 01/27/2018 SERVICE TIME: 1135 to 1150 ROOM: [place] [address]-1 Recommended Discharge Disposition: Home (Return to skilled nursing, no follow up PT anticipated.) Anticipated Discharge Needs: Physical Assist at Home Physical Assist at Home for: Cleaning;Laundry;Meals;Medication Management;Self Care;Shopping;Transportation Recommended Discharge Equipment: No equipment needs anticipated PT Recommendations to Nursing: Ambulate without device;To bathroom;In halls;With assist of 1 person Device: No Device PT 6 Clicks Score: 20 Precautions/Activity Restrictions: Fall Risk ASSESSMENT : Patient Disposition at Start of Session: Supine in Bed Patient Disposition at End of Session: Other: See Comment (sitting in dining room waiting for lunch to arrive) Tolerated Full Session Physical Therapy Problem List: Functional Mobility Impairment;Balance Impaired Patient /Caregiver Goals: (pt non verbal during session.Most likely return to group jorge) Goals for Plan of Care: Able to perform HEP with: Verbal Cues Only (standing LE therex and higher level standing balance activit) Transfer supine to/from sit with: Modified Independent Transfer sit to/from stand with: Modified Independent Ambulate with: Supervision Distance: 250 ft or greater Device: No Device Progress Toward Goals: Progressing as expected Rehab Potential: Good PLAN: Treatment Frequency (times per week): 2 Treatment Duration (number): 2 Visits Treatment Interventions: Education;Functional Mobility Training;Balance Training Plan of Care developed with: Patient TREATMENT INTERVENTIONS: Therapy Diagnosis: Reduced mobility-other;Unsteadiness on feet;Abnormalities of gait and mobility-other Interventions Provided: Gait Training (68564);Therapeutic Exercise (98388) Therapeutic Exercise (22034) Treatment Minutes: 10 1 unit Skilled Intervention(s): Instruction in therapeutic exercise standing BLE Verbal and tactile cuing provided for proper technique, jo, increased muscle contraction, full ROM, and slow controlled movement. Facilitation of muscle control, optimal recruitment and alignment to BLE Pt performed standing BLE heel raises, MIP, knee flexion, mini squats, hip abd x 20 to increase strength, endurance, and ROM. Pt needed increased cues for slowing jo of ex. Gait Training (99403) Treatment Minutes: 5 0 units Skilled Intervention(s): Instruction in sequencing, gait pattern, Instruction in correction of gait deviations, Instruction in use of equipment, cues for sequence and pattern. Pt requested to use RW this therapy session to Amb with. Pt Amb 150', 50' with RW And CGA. Verbal cueing was needed for postural alignment, looking forward while Amb, proper technique, slowing jo of Amb. Total Timed Code Treatment Minutes: 15 Total Treatment Time (minutes): 15 FUNCTIONAL G CODE: PT 6 Clicks Score: 20 (01/27/18 8955) Mobility: Walking and Moving Around Current Status (G8978): CK (01/23/18954) Mobility: Walking and Moving Around Goal Status (G8979): CK (01/23/18954) Based on clinical assessment and the score on the 6 Clicks Functional Assessment Tool, the G code and corresponding severity modifiers are documented above. SUBJECTIVE: Current Hospital Course: Chart reviewed and no significant medical updates relevant to therapy were noted Reason for Physical Therapy Consult : safety and functional mobility assessment Relevant Past Medical History: schizophrenia, Parkinson's with tremors, falls, Patient Report: Pt stated i have no pain. Home Environment Patient Lives With: Facility Care (skilled nursing) Assistance Available: 24 Hour Entry To Home: No Stairs Number Of Stairs To Bed/Bath: 0 (on ground floor) Tub/Shower Type: tub shower Equipment Owned: Hand Held Shower (may have shower chair) Prior Functional Level: History of Falls;Required Assistance Assistance Required With: Meals;Medication Management;Transportation;Shopping Prior Functional Level Comments: Per intake info from Allison, pt ambs w/o AD, indep with ADLs, facility does cleaning, laundry, meals and medications. Pt participates in group activities and outings. OBJECTIVE: CURRENT FUNCTIONAL STATUS: Current Functional Mobility Assist Level Additional Information Rolling Supine to Sit Supervision Sit to Supine Supervision Scooting Sit to Stand Contact Guard Assistance Stand to Sit Contact Guard Assistance Bed to Chair Toilet/Commode Gait Contact Guard Assistance Gait Device: Wheeled Walker Gait Distance (feet): 150', 50' Stairs Curb Step Car Transfer General Gait Deviations: Lateral sway increased;Narrow Base of Support;Step length decreased (mildly unsteady at times, fast gait) Activity Tolerance: Standing Activity Standing Activity: standing blance activities: unilateral stance, staggered stance, MIP, 360 deg turns to right and left Standing Activity Tolerance (in minutes): 5 Please see discipline specific clinical documentation flowsheet for complete details for this therapy evaluation/treatment. SIGNATURE: PO LATIF PTA PATIENT NAME: Sherita Jurado DATE: January 27, 2018 TIME: 11:55 AM PROGRESS Observed: 01/27/2018 Status: COMPLETED Source: [facility] 11:51 AM CLINIC OTHER CAMPUS REPOSITORY O ID: [id number] Author: Josse Balderrama Service: Psychiatry Author Type: Physician Type: Progress Notes Filed: 01/28/2018 9:47 AM Note Text: PROGRESS NOTE BEHAVIORAL HEALTH SERVICE DATE: 01/27/2018 SERVICE TIME: 11:51 AM The Interdisciplinary team met and reviewed treatment goals and discharge planning. Subjective Has been less guarded and less bizarre behaviors. Appears less tremulous. No exit seeking behaviors. Objective PHYSICAL EXAM: BP 129/73 Pulse 67 Temp 37.3 ?C (99.1 ?F) Resp 18 Ht 177.8 cm (5' 10) Wt 72.3 kg (159 lb 6.4 oz) SpO2 95% BMI 22.87 kg/m? MENTAL STATUS EXAMINATION: Appearance: Casually dressed Behavior: Disorganized Orientation: Person Speech/Language: Soft and Slow Mood/Affect: Suspicious Thought Form: Tangential Thought Content: Vague Suicidal Ideations: No suicidal ideation, intent or plan. Homicidal Ideations: No homicidal ideation, intent or plan. Insight: Insight is absent Judgment: Grossly impaired Memory/Cognition: Severly Impaired Psychomotor: Tremors NEW PROBLEMS ON UNIT SINCE LAST ENCOUNTER: None Current hospital medications: carbidopa-levodopa 25-100 mg 2 tablet (SINEMET 25-100) 2 tablet ORAL q 4 H while awake acetaminophen 650 mg tab(s) (TYLENOL) 650 mg ORAL q 6 H PRN aluminum-magnesium hydroxide-simethicone 200-200-20 mg/5 mL 30 mL (MAALOX,MYLANTA,MAG-AL PLUS) 30 mL ORAL q 4 H PRN magnesium hydroxide 400 mg/5 mL 30 mL (MOM) 30 mL ORAL DAILY PRN carboxymethylcellulose sodium 1 Drop (CELLUVISC) 1 Drop BOTH EYES QID cholecalciferol 1,000 Units tab(s) (VITAMIN D3) 1,000 Units ORAL DAILY potassium chloride ER 10 mEq tab(s) (K-DUR, KLOR-CON) 10 mEq ORAL AT BEDTIME haloperidol 0.25 mg tab(s) (HALDOL) 0.25 mg ORAL q 6 H PRN amantadine HCl 100 mg cap(s) (SYMMETREL) 100 mg ORAL BID donepezil (ARICEPT) tab(s) 22.5 mg 22.5 mg ORAL AT BEDTIME QUEtiapine 50 mg tab(s) (SEROquel) 50 mg ORAL BID DATA: Diagnostic tests reviewed for today's visit: Most recent labs and imaging results. Assessment/Plan DIAGNOSIS: 1. PRIMARY: Schizoaffective Disorder GAF: -30-21 Behavior is considerably influenced by delusions or hallucination or serious impairment in communication or judgment RISK ASSESSMENT: Suicide: low Homicide: low Deliberate Self-Harm: low Aggression: low Imminent Physical Self Impairment: low INFORMED CONSENT: Yes, completed with the Guardian. Discussed the risks, benefits and alternatives to the medication(s) recommended. Consent was given. INTERVENTION: Biological: see orders Psychological: group and behavioral therapy Social: placement DISCHARGE PLANNING: when stable SIGNATURE: Diana Casillas APRN.CNP PATIENT NAME: Sherita Jurado DATE: January 27, 2018 TIME: 11:51 AM PAGER/CONTACT#: [phone] I saw the patient and have read and reviewed the RESIDENT INSPECTOR's note and findings. I have discussed the RESIDENT INSPECTOR's findings and plan as documented in the RESIDENT INSPECTOR's note. Josse Balderrama MD NURSING PROG Observed: 01/27/2018 Status: COMPLETED Source: [facility] 9:45 AM [facility] REPOSITORY HNO ID: [id number] Author: Magdalena Pace RN Service: (none) Author Type: Registered Nurse Type: Nursing Progress Note Filed: 01/27/2018 2:01 PM Note Text: Nursing Progress Note Patient Name: Sherita Jurado Patient Location: [address] Daily Note:A+Ox2, affect and mood bland, amenable to taking all medication and having VS done, lying in bed, ate breakfast, anhedonic , more cooperative,less tremors, no acute distress, safety measures taken. Ambulating well with walker, did excellent job with PT, more responsive to questions and explanations. Grooming improved. Guardian called for consent for treatment and VM left. Guardian called and consent received for treatment from Martha Cole. This note was completed by: Magdalena Pace RN NURSING PROG Observed: 01/27/2018 Status: COMPLETED Source: [facility] 6:40 AM [facility] REPOSITORY HNO ID: [id number] Author: Jamila SpencerRnJulio César Barrett RN Service: Nursing Author Type: Registered Nurse Type: Nursing Progress Note Filed: 01/27/2018 6:41 AM Note Text: Nursing Progress Note Patient Name: Sherita Jurado Patient Location: [address] Daily Note:Pt was in bed, resting comfortably. Pt took HS meds w/o difficultly. Pt was assisted to the bathroom as needed. No s/s of pain or distress. Pt slept long hours. This note was completed by: Jamila Barrett RN NURSING PROG Observed: 01/26/2018 Status: COMPLETED Source: [facility] 7:57 PM [facility] OTHER [place] REPOSITORY HNO ID: [id number] Author: Kamila (Rn) JOSE Villalta Service: (none) Author Type: Registered Nurse Type: Nursing Progress Note Filed: 01/26/2018 8:06 PM Note Text: Nursing Progress Note Patient Name: Sherita Jurado Patient Location: [address] Daily Note: Pt alert and oriented x 2 - 3. No delusions or hallucinations reported. No agitation or combativeness this shift. Compliant with medications. Denies pain or distress. Soft spoken and overwhelmed by the milieu at times. Slammed door to his room once and when questioned why stated, I need some privacy. During safety rounds was noted he was naked but was covered with a sheet. Spending longer period of time in day area. Using walker appropriately and gait more steady. Safety maintained. This note was completed by: Kamila Villalta RN CBC AND DIFFERENTIAL Collected: 01/26/2018 Status: F Source: [facility] 6:29 PM [facility] OTHER [place] REPOSITORY TYPE CODE TESTS RESULT OUT OF REFERENCE UNITS RANGE LAB WBC 3.70-11.00 k/uL WBC 6.11 LAB RBC 4.20-6.00 m/uL Low RBC 4.16 LAB HGB 13.0-17.0 g/dL Hemoglobin 14.0 LAB HCT 39.0-51.0 % Hematocrit 40.9 LAB MCV 80.0-100.0 fL MCV 98.3 LAB MCH 26.0-34.0 pG MCH 33.7 LAB MCHC 30.5-36.0 g/dL MCHC 34.2 LAB RDWCV 11.5-15.0 % RDW-CV 12.7 LAB PLTCT 150-400 k/uL Platelet Count 201 LAB MPV 9.0-12.7 fL MPV 9.5 LAB ANEUT % Neut% 69.4 LAB AANEUT 1.45-7.50 k/uL Abs Neut 4.24 LAB ALYMP % Lymph% 20.6 LAB AALYMP 1.00-4.00 k/uL Abs Lymph 1.26 LAB AMONO % Ceiba% 7.5 LAB AAMONO <0.87 k/uL Abs Ceiba 0.46 LAB AEOS % Eosin% 1.8 LAB AAEOS <0.46 k/uL Abs Eosin 0.11 LAB ABASO % Baso% 0.7 LAB AABASO <0.11 k/uL Abs Baso 0.04 LAB DTYP DTYPE Auto Diff BASIC METABOLIC PANL Collected: 01/26/2018 Status: F Source: [facility] 6:29 PM CLINIC OTHER CAMPUS REPOSITORY TYPE CODE TESTS RESULT OUT OF REFERENCE UNITS RANGE LAB GLU 65-100 mg/dL Glucose 90 LAB BUN 8-25 mg/dL BUN 23 LAB CRET 0.7-1.4 mg/dL Creatinine 0.78 LAB NA 135-146 mmol/L Low Sodium 133 LAB K 3.5-5.0 mmol/L Potassium 3.9 LAB CL 98-110 mmol/L Low Chloride 95 LAB CO2 23-32 mmol/L CO2 29 LAB AGAP 0-15 mmol/L Anion Gap 9 LAB CA 8.5-10.5 mg/dL Calcium, Total 8.9 CONSULT Observed: 01/26/2018 Status: COMPLETED Source: [facility] 5:11 PM CLINIC OTHER CAMPUS REPOSITORY HNO ID: [id number] Author: German Adkins Service: Neurology General Author Type: Physician Type: Consults Filed: 01/27/2018 12:21 AM Note Text: January 26, 2018 New Inpatient Consult Note [facility] Charge Lpn: German Adkins MD Current Attending: Josse Balderrama PCP: David Hidalgo MD Sherita Jurado : 1945 History of Present Illness: Sherita Jurado is a 72 year old right-handed man who was admitted with behavioral issues. Consult called for tremor. The patient is seen alone at the bedside. EPIC notes reviewed. Mr. Jurado reports that he had had tremor for a while, and that he does not believe that it is associated with his medication. He believes he shakes both on action and at rest. He denies stiffness, trouble swallowing, or significant trouble with walking. However, he does use a walker. He claims that the tremor is something that he has learned to live with. He was seen by Dr. Reyes, who is a movement disorders specialist, and she felt that his response to Sinemet was so lacking that he should wean it off. For that visit, his caregiver filled in aspects of the story such as the tremor being ten years old though worsening earlier this year, when he was on haldol. Past Medical History includes has a past medical history of Actinic keratosis; Breast lump; Dizziness; Epidermoid cyst of skin; Falls; Lipoma of skin; Mammogram abnormal; Obesity; On retirement drug therapy; Palpitations; Parkinson disease ([facility]); Schizophrenia ([facility]); Tremor; and Vitamin D deficiency. He also has no past medical history of Atrial fibrillation ([facility]); Cancer ([facility]); Chronic obstructive pulmonary disease (COPD) ([facility]); Chronic renal insufficiency; Congestive heart failure ([facility]); Coronary artery disease; Depression; Diabetes ([facility]); Epilepsy ([facility]); Hypertension; Hypothyroidism; etcher enameling (current) use of systemic steroids; Obstructive sleep apnea; Stroke ([facility]); or Substance abuse ([facility]). Past Surgical History includes has a past surgical history that includes none. Allergies: ALLERGIES Allergen Reactions - Goose Feathers Allen* Unknown - Zyprexa [Olanzapine] Unknown Current Medications: traZODone (DESYREL) 50 mg tablet Take 25 mg by mouth daily at bedtime. haloperidol lactate (HALDOL) 5 mg/mL injection Inject 0.25 mg intramuscularly every 6 hours as needed (Agitation). May be given PO or IM carbidopa-levodopa (SINEMET) 25-100 mg per tablet Take 1.5 tablets by mouth four times daily. (at 6am, 12pm, 6pm, 10pm) carboxymethylcellulose (REFRESH CELLUVISC) 1 % ophthalmic solution Use 1 Drop in both eyes four times daily. donepezil (ARICEPT) 23 mg tablet Take 23 mg by mouth daily at bedtime. potassium chloride (K-TAB) 10 mEq tablet Take 10 mEq by mouth daily at bedtime. QUEtiapine (SEROQUEL) 25 mg tablet Take 25 mg by mouth every morning. QUEtiapine (SEROQUEL) 50 mg tablet Take 50 mg by mouth daily at bedtime. cholecalciferol (VITAMIN D) 1,000 unit tab tablet Take 1,000 Units by mouth once daily. amantadine HCl (SYMMETREL) 100 mg capsule Take 100 mg by mouth once daily. cyanocobalamin (VITAMIN B-12) 1,000 mcg/mL soln Inject 1,000 mcg intramuscularly once every month. Current Facility-Administered Medications: acetaminophen 650 mg tab(s) (TYLENOL) 650 mg ORAL q 6 H PRN [employer] aluminum-magnesium hydroxide-simethicone 200-200-20 mg/5 mL 30 mL (MAALOX,MYLANTA,MAG-AL PLUS) 30 mL ORAL q 4 H PRN [employer] magnesium hydroxide 400 mg/5 mL 30 mL (MOM) 30 mL ORAL DAILY PRN [employer] carbidopa-levodopa 25-100 mg 1.5 tablet (SINEMET 25-100) 1.5 tablet ORAL QID [employer] 1.5 tablet at 01/26/18 1251 carboxymethylcellulose sodium 1 Drop (CELLUVISC) 1 Drop BOTH EYES QID [employer] 1 Drop at 01/26/18 1259 cholecalciferol 1,000 Units tab(s) (VITAMIN D3) 1,000 Units ORAL DAILY [employer] 1,000 Units at 01/26/18 0942 potassium chloride ER 10 mEq tab(s) (K-DUR, KLOR-CON) 10 mEq ORAL AT BEDTIME [employer] 10 mEq at 01/25/182026 haloperidol 0.25 mg tab(s) (HALDOL) 0.25 mg ORAL q 6 H PRN [employer] amantadine HCl 100 mg cap(s) (SYMMETREL) 100 mg ORAL BID [employer] 100 mg at 01/26/18 0942 donepezil (ARICEPT) tab(s) 22.5 mg 22.5 mg ORAL AT BEDTIME [employer] 22.5 mg at 01/25/182026 QUEtiapine 50 mg tab(s) (SEROquel) 50 mg ORAL BID [employer] 50 mg at 01/26/18 0942 Social History: Patient reports that he has quit smoking. He has never used smokeless tobacco. He reports that he does not drink alcohol or use drugs. Family History Family history is unknown by patient. Review of Systems: Difficult to obtain Physical Examination: General Description of Patient: mildly disheveled, no acute distress Blood pressure 92/69, pulse 71, temperature 36.3 ?C (97.3 ?F), temperature source Oral, resp. rate 18, height 177.8 cm (5' 10), weight 72.3 kg (159 lb 6.4 oz), SpO2 98 %. 01/25/18 0831 01/25/18 1235 01/25/18 1944 01/26/18 0939 BP: 120/61 120/64 107/65 92/69 Pulse: 71 70 76 71 Resp: 20 18 20 18 Temp: 36.4 ?C (97.5 ?F) 36.4 ?C (97.5 ?F) 37 ?C (98.6 ?F) 36.3 ?C (97.3 ?F) TempSrc: Oral Axillary Oral SpO2: 94% 94% 95% 98% Weight: Height: FOCUSED NEUROLOGIC EXAMINATION: Mental Status: Alert and Oriented to person, place, and date Cranial Nerves: EOMI, VF full, Face symmetric, Tongue and palate symmetric, V1-V3 sensation intact, SCM and trapezius strength normal Motor: Normal bulk and strength; Rest tremor on total distraction becomes quite severe, R>L; he appears able to stop it suddenly; postural tremor present, mild-moderate, with an uncertain latency; no increase in tone Sensory: Normal fine touch Coordination: mild action tremor; rapid alternating movements are hampered by the tremor but there does not seem to be outright decrementing Reflexes: somewhat brisk Gait: Slightly unstable though able to walk without the walker; good stride length and arm swing, no shuffling Imaging and Labs Reviewed: CT head (Dec 17, 2017): nothing acute and nothing chronic CBC, Coags, BMP, Mg, Phos Recent Labs 01/24/18 0625 WBC 6.01 HB 14.2 HCT 42.5 PLT 210 NA 132* K 3.7 CHLOR 94* CO2 25 BUN 11 CREAT 0.62* GLUC 77 CA 8.9 Liver Function, Amylase, AND Lipase Recent Labs 01/24/18 0625 TPROT 7.2 ALB 3.6 ALT <6 AST 16 ALKPHOS 70 TBILI 0.9 Assessment: Mr. Jurado is a 72 year old man with psychiatric illness on medication who has a presumed secondary tremor. He has little in the way of parkinsonian features though the tremor is strongly rest mediated. Given the prior Neurology view, that the Sinemet is not helping, increasing it wouldn't add much (though it is not impossible that there is not enough). He needs to have the haldol weaned off completely, and even then, it may take months for the tardive effects to dissipate. . Plan: 1) try to stop the haldol - use an atypical antipsychotic 2) continue Sinemet - increase the dose temporarily to 2 pills per dose and then 2.5 as an experiment Diagnostic differential, prognosis, and treatment plan discussed with the patient. Medical decision making was high complexity due to patient's complex treatment regimen, multiple medications and risk of side effects, and the diagnostic difficulties. Neurology will continue to follow. Thank you for including me in the care of this interesting patient. German Adkins MD Staff Neurologist [facility] ALLIED HEALTH Observed: 01/26/2018 Status: COMPLETED Source: [facility] 1:39 PM CLINIC OTHER CAMPUS REPOSITORY O ID: [id number] Author: AGUSTÍN Parsons Service: Behavioral Health Author Type: Dance Movement Therapist Type: Allied Health Filed: 01/27/2018 4:56 PM Note Text: PROGRESS NOTE BEHAVIORAL HEALTH Topic of Note: Three Day Note/dance therapy SERVICE DATE: 01/27/2018 SERVICE TIME: 4:56 PM Subjective: Sherita Has been unready,unwilling and By his thought process unable to come to small closed Group therapy sessions Due to his shaking like I do . He was interested in coming to prayer on Friday And even got out of bed to get dressed But he never Made it to the Service. When asked what happened after the service He did not remember that he was even Asked nor how he got dressed. He has been going to meals and then withdrawing to his room. ? Objective: The following table accounts the patient's attendance (minutes attended / minutes offered) for all offered ET and other group sessions since last report: Date ET / Group topics Attendence Comments 01/24/18 DMT:Community check in/ nutrition and /or 1:1 5/5 min to 60 ?1:1 pleasant but went to bedroom for a nap [place]/ DMT:Sabbath at Home/ prayer/ Holy communion 045 ?sleeping invited to come he said yes I need to get my pants on but he never made it DMT:ups and downs, peer support ? sleeping DMT: [place] of support, moving together octaband 045 ?in dining room with peers and staff then went to his room no show to group 01/27/18 DMT: Reiki Relax /remember/ release 060 ? withdrew to bedroom sleeping soundly when approached ? Assessment:Sherita does not seem to be progressing in his discharge planning goals in being Reclusive to his Room and refusing Both medications and Peer group therapy and support sessions. Pt demonstrates a continued need for expressive therapies while in the hospital. ? Plan: Continue to encourage 1:1 engagement in Morning check in and 1:1 time offerings in an effort to build sense of Safety and trust leading hopefully to increased socialization and expressive therapy healing processes. Pt will continue to be offered expressive therapies 5x per week to: ? ? Increase socialization and positive support systems Improve communication and emotional expression Channel energy feelings into constructive outlets Explore creative expression Relaxation skills engage in movement that can help parkinsons like tremors by introducing him to Dance for Parkinsons resources and experience Dance movement Therapy/ Spiritual Care interventions may include, but are not limited to: ? Therapeutic arts ? Relaxation/stress management ? Therapeutic fitness ? Identifying positive coping skills ? Reminiscing ? Self Awareness/self expression exercises ? Structured Socialization [place] DMT: Dance Movement Therapy MT: Music Therapy DR: Dining Room SW: Mathematics Faculty Member ET: Expressive Therapy RT: Recreation Therapy ? SIGNATURE: AGUSTÍN Parsons PATIENT NAME: Sherita Jurado DATE: January 27, 2018 TIME: 1:23 PM PAGER/CONTACT #: CASE MGT INIT Observed: 01/26/2018 Status: COMPLETED Source: [facility] 11:39 AM CLINIC OTHER CAMPUS REPOSITORY HNO ID: [id number] Author: Silva Bobby (Sw) Service: Social Work Author Type: Mathematics Faculty Member Type: Care Mgt Initial Assessment Filed: 01/26/2018 2:58 PM Note Text: BEHAVIORAL HEALTH SOCIAL WORK/CARE MANAGEMENT ASSESSMENT AND DISCHARGE PLAN SERVICE DATE: 01/26/2018 SERVICE TIME: 11:39 AM Reason for Admission: Pt was admitted to the unit with increased behaviors. Pt resided at [facility]. It was reported pt has been refusing to take his medications and laying naked on the floors of the group home. Also, he will lay in his room naked but will not allow staff to close his door. Legal Status: Voluntary Important Contacts: Legal Guardian Name: Conrad Govea: [phone] Does the patient/customer service representative consent to contact with the above at this time? Not Applicable Information obtained from: Chart Legal Guardian Medical Staff Prior Social Work assessment Referred by: Medical Team Living Arrangements Prior to Admission: Extended/Intermediate Care Facility: [facility] Prior to Admission, Patient was Living with: N/A - Patient From Facility Marital Status: Single Children (including quality of relationship): Patient does not have any children Sexual Orientation: Heterosexual SOCIAL HISTORY Sherita Jurado was born and raised in [place] by his mother. He has 1 brother and 1 sister. He is estranged from his family members. 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 Education History: High School Support System: Limited Support System Legal guardian Employment Status: Disabled Financial Resources: Social Security (SSI/SSDI) Health Insurance: PRIMARY: [place] Medicare (Senior Advantage) Status (including history of combat experience): [id number] Legal History: Patient/Centerless Grinder Operator Denies Druze/Spirituality: Unknown PSYCHIATRIC HISTORY: - Psychiatrist: psychiatrist at facility - Prior Diagnoses: Yes, schizophrenia - Previous Mental Health Interventions: Medication, Hospitalization(s), [facility], Senior Care and Guardianship Has Patient Been Hospitalized Previously for Psychiatric Reasons? Yes, but there was no admission within the past 30 days. 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 preferred language, literacy, gender identity, physical disability such as deaf or blind, etc)? No, Patient/Centerless Grinder Operator Denies Are there practices or beliefs that may affect or influence treatment? No, Patient/Centerless Grinder Operator Denies Patient Strengths/Protective Factors (Minimum of Two): Able to Communicate Needs Legal Guardian FAMILY PSYCHIATRIC HISTORY Patient/Centerless Grinder Operator Denies DISCHARGE RECOMMENDATIONS: Relinkage With Previous Providers Patient/Centerless Grinder Operator Agreeable With Discharge Recommendations At This Time? Yes FREEDOM OF CHOICE EXPLAINED: [facility]-owned/affiliated facilities and agencies have been identified NEEDS PRIOR TO DISCHARGE: Waiting for: Psychiatric Stabilization OBSTACLES TO TREATMENT/POST-DISCHARGE CHALLENGES: Medication Noncompliance Mental Status SUMMARY: Spoke with pts guardian, Conrad, to obtain some additional background information. Pt has had a legal guardian since 1991. He had the same guardian from [id number] when his guardian accepted the position of shank paperer of [facility]. Conrad Govea was appointed his guardian at that time. Pt had lived in the same skilled nursing, [facility], for 15 years and had been stable. About a year ago, pt started having tremors and displaying behaviors that he had never done before. In April 2017, his Risperdal was D/C'd by his psychiatrist but his tremors worsened. He was needing more assistance, physically, than the skilled nursing could provide. At one point, pt eloped from the facility and it took 10 hours of searching until he was found. He was hospitalized at [facility] in 08/29 but he was discharged back to the skilled nursing. It wasn't until pt was on the medical floor at [facility] in 12/30 that pt was finally placed in a group home, [facility]. He has been at the nursing facility since 12/24/17. Guardian is wondering if pts behaviors are due to medications needing to be adjusted or if he is exhibiting behaviors due to being in a new environment. The guardian describes patient as being quiet and passive. He may go to the group therapy programs but would need prompting to participate. Discussed discharge plans. He would like pt to return to [facility]. Will offer pt support and structure and assist with discharge plans. SIGNATURE: BRIELLE Baldwin PATIENT NAME: Sherita Jurado DATE: January 26, 2018 TIME: 11:39 AM PROGRESS Observed: 01/26/2018 Status: COMPLETED Source: [facility] 11:21 AM CLINIC OTHER CAMPUS REPOSITORY O ID: [id number] Author: Josse Balderrama Service: Psychiatry Author Type: Physician Type: Progress Notes Filed: 01/26/2018 11:29 AM Note Text: PROGRESS NOTE BEHAVIORAL HEALTH SERVICE DATE: 01/26/2018 SERVICE TIME: 11:21 AM The Interdisciplinary team met and reviewed treatment goals and discharge planning. Subjective Has been up and secluded to self; Was found lying on the ground but states that he likes to lie on the ground. Objective PHYSICAL EXAM: BP 92/69 Pulse 71 Temp 36.3 ?C (97.3 ?F) (Oral) Resp 18 Ht 177.8 cm (5' 10) Wt 72.3 kg (159 lb 6.4 oz) SpO2 98% BMI 22.87 kg/m? MENTAL STATUS EXAMINATION: Appearance: Casually dressed Behavior: Disorganized Orientation: Person and Place Speech/Language: Soft and Slow Mood/Affect: Suspicious Thought Form: Tangential Thought Content: Vague Suicidal Ideations: No suicidal ideation, intent or plan. Homicidal Ideations: No homicidal ideation, intent or plan. Insight: Limited Judgment: Limited Memory/Cognition: Mildly Impaired Psychomotor: Retarded NEW PROBLEMS ON UNIT SINCE LAST ENCOUNTER: None Current hospital medications: acetaminophen 650 mg tab(s) (TYLENOL) 650 mg ORAL q 6 H PRN aluminum-magnesium hydroxide-simethicone 200-200-20 mg/5 mL 30 mL (MAALOX,MYLANTA,MAG-AL PLUS) 30 mL ORAL q 4 H PRN magnesium hydroxide 400 mg/5 mL 30 mL (MOM) 30 mL ORAL DAILY PRN carbidopa-levodopa 25-100 mg 1.5 tablet (SINEMET 25-100) 1.5 tablet ORAL QID carboxymethylcellulose sodium 1 Drop (CELLUVISC) 1 Drop BOTH EYES QID cholecalciferol 1,000 Units tab(s) (VITAMIN D3) 1,000 Units ORAL DAILY potassium chloride ER 10 mEq tab(s) (K-DUR, KLOR-CON) 10 mEq ORAL AT BEDTIME haloperidol 0.25 mg tab(s) (HALDOL) 0.25 mg ORAL q 6 H PRN amantadine HCl 100 mg cap(s) (SYMMETREL) 100 mg ORAL BID donepezil (ARICEPT) tab(s) 22.5 mg 22.5 mg ORAL AT BEDTIME QUEtiapine 50 mg tab(s) (SEROquel) 50 mg ORAL BID DATA: Diagnostic tests reviewed for today's visit: Most recent labs and imaging results. Assessment/Plan DIAGNOSIS: 1. PRIMARY: Schizoaffective Disorder GAF: -50-41 Serious symptoms or any serious impairment in social, occupational or school functioning. RISK ASSESSMENT: Suicide: low Homicide: low Deliberate Self-Harm: low Aggression: low Imminent Physical Self Impairment: low INFORMED CONSENT: Yes, completed with the Guardian. Discussed the risks, benefits and alternatives to the medication(s) recommended. Consent was given. INTERVENTION: Biological: see orders Psychological: group and behavioral therapy Social: home with services DISCHARGE PLANNING: when stable SIGNATURE: Josse Balderrama MD PATIENT NAME: Sherita Jurado DATE: January 26, 2018 TIME: 11:21 AM PAGER/CONTACT#: [phone] THERAPY NT Observed: 01/26/2018 Status: COMPLETED Source: [facility] 10:56 AM CLINIC OTHER CAMPUS REPOSITORY O ID: [id number] Author: Ernestine Groves Service: Physical Therapy Author Type: Industrial Maintenance Manager Type: Therapy (PT/OT/Speech/Resp) Filed: 01/26/2018 1:07 PM Note Text: Attestation signed by Everardo Morgan at 01/26/2018 1:08 PM I reviewed and agree with the documentation corresponding to this therapy visit. SIGNATURE: Everardo Morgan PT, DPT DATE: January 26, 2018 TIME: 1:08 PM Physical Therapy Treatment SERVICE DATE: 01/26/2018 SERVICE TIME: 816 to 840 ROOM: [place] [address]-1 Recommended Discharge Disposition: Home (Return to skilled nursing, no follow up PT anticipated.) Anticipated Discharge Needs: Physical Assist at Home Physical Assist at Home for: Cleaning;Laundry;Meals;Medication Management;Self Care;Shopping;Transportation Recommended Discharge Equipment: No equipment needs anticipated PT Recommendations to Nursing: Ambulate without device;To bathroom;In halls;With assist of 1 person Device: No Device PT 6 Clicks Score: 18 Precautions/Activity Restrictions: Fall Risk ASSESSMENT : Patient Disposition at Start of Session: OOB in Chair Patient Disposition at End of Session: Other: See Comment (in diningroom with nurse and aide present.) Tolerated Full Session Physical Therapy Problem List: Functional Mobility Impairment;Balance Impaired Patient /Caregiver Goals: (pt non verbal during session.Most likely return to group jorge) Goals for Plan of Care: Able to perform HEP with: Verbal Cues Only (standing LE therex and higher level standing balance activit) Transfer supine to/from sit with: Modified Independent Transfer sit to/from stand with: Modified Independent Ambulate with: Supervision Distance: 250 ft or greater Device: No Device Progress Toward Goals: Progressing as expected Rehab Potential: Good PLAN: Treatment Frequency (times per week): 2 Treatment Duration (number): 2 Visits Treatment Interventions: Education;Functional Mobility Training;Balance Training Plan of Care developed with: Patient TREATMENT INTERVENTIONS: Therapy Diagnosis: Reduced mobility-other;Unsteadiness on feet;Abnormalities of gait and mobility-other Interventions Provided: Therapeutic Exercise (57181);Gait Training (30975) Therapeutic Exercise (97653) Treatment Minutes: 15 1 unit Skilled Intervention(s): Instruction in therapeutic exercise seated AP, LAQ, MIP x 20, Standing HR, SLR, HS curls, mip x 10 Verbal and tactile cuing provided for technique and purpose Facilitation of muscle control, optimal recruitment and alignment for balance with standing therex Gait Training (29178) Treatment Minutes: 9 1 unit Skilled Intervention(s): Instruction in sit to stand technique with proper hand placement and body positioning at edge of bed/chair, Instruction in stand to sit technique with LE's touching chair/bed and reaching back for surface, Instruction in sequencing, gait pattern and Instruction in correction of gait deviations cues to decrease gait speed nick on turns, cues for directions. Pt requested use of walker this date rather than amb without AD. Total Timed Code Treatment Minutes: 24 Total Treatment Time (minutes): 24 FUNCTIONAL G CODE: PT 6 Clicks Score: 18 (01/26/18816) Mobility: Walking and Moving Around Current Status (G8978): CK (01/23/18954) Mobility: Walking and Moving Around Goal Status (G8979): CK (01/23/18954) Based on clinical assessment and the score on the 6 Clicks Functional Assessment Tool, the G code and corresponding severity modifiers are documented above. SUBJECTIVE: Current Hospital Course: Chart reviewed and no significant medical updates relevant to therapy were noted Reason for Physical Therapy Consult : safety and functional mobility assessment Relevant Past Medical History: schizophrenia, Parkinson's with tremors, falls, Patient Report: I'm ok. Home Environment Patient Lives With: Facility Care (skilled nursing) Assistance Available: 24 Hour Entry To Home: No Stairs Number Of Stairs To Bed/Bath: 0 (on ground floor) Tub/Shower Type: tub shower Equipment Owned: Hand Held Shower (may have shower chair) Prior Functional Level: History of Falls;Required Assistance Assistance Required With: Meals;Medication Management;Transportation;Shopping Prior Functional Level Comments: Per intake info from chasidy Cooper ambs w/o AD, indep with ADLs, facility does cleaning, laundry, meals and medications. Pt participates in group activities and outings. OBJECTIVE: CURRENT FUNCTIONAL STATUS: Current Functional Mobility Assist Level Additional Information Rolling Supine to Sit Sit to Supine Scooting Sit to Stand Contact Guard Assistance Stand to Sit Contact Guard Assistance Bed to Chair Toilet/Commode Gait Contact Guard Assistance Gait Device: Wheeled Walker Gait Distance (feet): 200ft x 2 Stairs Curb Step Car Transfer General Gait Deviations: Lateral sway increased;Narrow Base of Support;Step length decreased (mildly unsteady at times, fast gait) Activity Tolerance: Standing Activity Standing Activity: standing blance activities: unilateral stance, staggered stance, MIP, 360 deg turns to right and left Standing Activity Tolerance (in minutes): 5 Please see discipline specific clinical documentation flowsheet for complete details for this therapy evaluation/treatment. SIGNATURE: Ernestine Groves PTA PATIENT NAME: Sherita Jurado DATE: January 26, 2018 TIME: 10:57 AM NURSING PROG Observed: 01/26/2018 Status: COMPLETED Source: [facility] 6:30 AM [facility] REPOSITORY HNO ID: [id number] Author: Jamila SpencerRn) JOSE Barrett Service: Nursing Author Type: Registered Nurse Type: Nursing Progress Note Filed: 01/26/2018 6:30 AM Note Text: Nursing Progress Note Patient Name: Sherita Jurado Patient Location: [facility] [place] [facility]/ [place] Daily Note:Pt was in bed, resting comfortably. Pt was assisted to the BSC as needed. No s/s of pain or distress. Pt slept long hours. This note was completed by: Jamila Barrett RN NURSING PROG Observed: 01/25/2018 Status: COMPLETED Source: [facility] 10:41 PM [facility] REPOSITORY HNO ID: [id number] Author: Eliz SpencerRnJulio César Plata RN Service: (none) Author Type: Registered Nurse Type: Nursing Progress Note Filed: 01/25/2018 10:46 PM Note Text: Nursing Progress Note Patient Name: Sherita Jurado Patient Location: [address]/ [place] Daily Note:2000 Alert and oriented x three.Denies discomfort.Tremors noted.Tolerated meds well.Adfect flat.Impulsive behavior (getting up and using chair as walker to go to room) 2199 Door closed paranoid behavior noted when answering door.Patient was told to keep door open,cooperated with nurse. This note was completed by: Eliz Plata RN NURSING PROG Observed: 01/25/2018 Status: COMPLETED Source: [facility] 8:36 PM [facility] REPOSITORY HNO ID: [id number] Author: Blossom (Rn) JOSE Thomas Service: Nursing Author Type: Registered Nurse Type: Nursing Progress Note Filed: 01/25/2018 9:10 PM Note Text: 0800 pt alert, speaks softly, fine tremors noted, obeys commands, up to br with assist of one, slight unsteady, pt walks quickly to br, pt shut door as he did not want nurse in br with pt, pt able to use toilet with supervision, pt walked with nurse to day area for breakfast. 0900 pt took breakfast fair, needed assist opening items, took meds with water without difficulty. 1100 pt up to br in room with walker, therapy with patient in room, then resting in bed. 1240 pt found laying on floor in room, laying with resting his head on his arms, stated he did not fall, but layed down, denied hurting himself, Registered Nurse, Roberth Guerrero DOUGHNUT DOUGH MIXER in to see pt., ortho vital signs done, pt denied dizziness when standing, slight decrease in bp with standing-see flowsheet. Pt made aware not to lay on the floor in the hospital and to wait for assist before getting Out of bed. 1300 pt Transferred to room 404 near nurses station, oriented pt to new room. 1400 pt took lunch fair. 1500 pt in day area, watching tv, 1800 pt in day area, took dinner fair. PROGRESS Observed: 01/25/2018 Status: COMPLETED Source: [facility] 2:06 PM [facility] REPOSITORY HNO ID: [id number] Author: Josse Balderrama Service: Psychiatry Author Type: Physician Type: Progress Notes Filed: 01/26/2018 11:21 AM Note Text: PROGRESS NOTE BEHAVIORAL HEALTH SERVICE DATE: 01/25/2018 SERVICE TIME: 2:07 PM The Interdisciplinary team met and reviewed treatment goals and discharge planning. Subjective He barricaded the door to his room last night with the bedside stand. Suspicious of staff. Holds pillow over face and refuses to interact..refuses groups. Ambulates with walker. Objective PHYSICAL EXAM: BP 120/64 Pulse 70 Temp 36.4 ?C (97.5 ?F) (Oral) Resp 18 Ht 177.8 cm (5' 10) Wt 72.3 kg (159 lb 6.4 oz) SpO2 94% BMI 22.87 kg/m? MENTAL STATUS EXAMINATION: Appearance: In hospital gown Behavior: Disorganized, Withdrawn and Manipulative Orientation: Person and Place Speech/Language: The patient is non-verbal, selectively Mood/Affect: Angry, Being Irritable, Suspicious and Withdrawn Thought Form: Tangential Thought Content: Vague Suicidal Ideations: No suicidal ideation, intent or plan. Homicidal Ideations: No homicidal ideation, intent or plan. Insight: Insight is absent Judgment: Grossly impaired Memory/Cognition: Unable to Assess Psychomotor: Tremors NEW PROBLEMS ON UNIT SINCE LAST ENCOUNTER: Yes, barricading self in room. Current hospital medications: acetaminophen 650 mg tab(s) (TYLENOL) 650 mg ORAL q 6 H PRN aluminum-magnesium hydroxide-simethicone 200-200-20 mg/5 mL 30 mL (MAALOX,MYLANTA,MAG-AL PLUS) 30 mL ORAL q 4 H PRN magnesium hydroxide 400 mg/5 mL 30 mL (MOM) 30 mL ORAL DAILY PRN carbidopa-levodopa 25-100 mg 1.5 tablet (SINEMET 25-100) 1.5 tablet ORAL QID carboxymethylcellulose sodium 1 Drop (CELLUVISC) 1 Drop BOTH EYES QID cholecalciferol 1,000 Units tab(s) (VITAMIN D3) 1,000 Units ORAL DAILY potassium chloride ER 10 mEq tab(s) (K-DUR, KLOR-CON) 10 mEq ORAL AT BEDTIME haloperidol 0.25 mg tab(s) (HALDOL) 0.25 mg ORAL q 6 H PRN amantadine HCl 100 mg cap(s) (SYMMETREL) 100 mg ORAL BID donepezil (ARICEPT) tab(s) 22.5 mg 22.5 mg ORAL AT BEDTIME QUEtiapine 50 mg tab(s) (SEROquel) 50 mg ORAL BID DATA: Diagnostic tests reviewed for today's visit: Most recent labs and imaging results. Assessment/Plan DIAGNOSIS: 1. PRIMARY: Schizoaffective Disorder ? GAF: ?-20-11 Some danger of hurting self or others ? RISK ASSESSMENT: Suicide: low Homicide: low Deliberate Self-Harm: low Aggression: moderate Imminent Physical Self Impairment: low INFORMED CONSENT: Yes, completed with the Designated POA over Healthcare. Discussed the risks, benefits and alternatives to the medication(s) recommended. Consent was given. INTERVENTION: Biological: continue with current medications Psychological: group and behavioral therapy Social: placement DISCHARGE PLANNING: when stable SIGNATURE: Josse Balderrama MD PATIENT NAME: Sherita Jurado DATE: January 25, 2018 TIME: 2:06 PM PAGER/CONTACT#: [phone] PROGRESS Observed: 01/25/2018 Status: COMPLETED Source: [facility] 1:09 PM CLINIC OTHER CAMPUS REPOSITORY HNO ID: [id number] Author: Margie Guerrero Service: Critical Care Author Type: Nurse Practitioner Type: Progress Notes Filed: 01/25/2018 4:30 PM Note Text: POST FALL ASSESSMENT PATIENT NAME: Sherita Jurado ASSESSMENT DATE: 01/25/2018 ASSESSMENT TIME: 1:09 PM Subjective Brief description of event: Called to bed side for RN finding the patient laying on the floor. It was not witnessed. He seemed to just be in a resting position on the floor. Sherita presented for admission secondary to combative behavior at the group home. Per Behavior medicine intake: Sherita Jurado is a 72 year old male?brought in to [place]by caregiver??for behavioral problems.Pt has hx.of Schizophrenia, Parkinsons,falls,tremors and dizziness. Recently he has not been taking his medications at the group home and he has been laying around on the floors of the MA naked, also naked in his room and will not allow staff to close his door. I asked him if he fell on the floor and he stated I just wanted to lay down Fall witnessed: No How did fall occur: Unknown Location of fall: Patient room Contributing factors: none reported Medication List: Reviewed Current Facility-Administered Medications: - acetaminophen 650 mg tab(s) (TYLENOL) - aluminum-magnesium hydroxide-simethicone 200-200-20 mg/5 mL 30 mL (MAALOX,MYLANTA,MAG-AL PLUS) - magnesium hydroxide 400 mg/5 mL 30 mL (MOM) - carbidopa-levodopa 25-100 mg 1.5 tablet (SINEMET 25-100) - carboxymethylcellulose sodium 1 Drop (CELLUVISC) - cholecalciferol 1,000 Units tab(s) (VITAMIN D3) - potassium chloride ER 10 mEq tab(s) (K-DUR, KLOR-CON) - haloperidol 0.25 mg tab(s) (HALDOL) - amantadine HCl 100 mg cap(s) (SYMMETREL) - donepezil (ARICEPT) tab(s) 22.5 mg - QUEtiapine 50 mg tab(s) (SEROquel) Recent Lab Results: Physical Exam BP 120/64 Pulse 70 Temp 36.4 ?C (97.5 ?F) (Oral) Resp 18 Ht 177.8 cm (5' 10) Wt 72.3 kg (159 lb 6.4 oz) SpO2 94% BMI 22.87 kg/m? Is the Patient Experiencing Pain: No: 0 on a scale of 0 to 10 General appearance: frail in appearance- thin - anxious Skin: Skin color, texture, turgor normal, no suspicious rashes or lesions Head: Normocephalic, no masses, lesions, tenderness or abnormalities Eyes: Anicteric sclera. Pupils are equally round and reactive to light. Extraocular movements are intact. Ears: Not examined Nose/Sinuses: Nares normal, septum midline, mucosa normal, no drainage or sinus tenderness Oropharynx: Lips, mucosa, and tongue normal, teeth and gums normal, oropharynx normal Neck: Supple, no adenopathy; thyroid symmetric, normal size, no bruits Back: Normal exam, no pain to palpation Lungs: Lungs clear to auscultation. No wheezing, rhonchi, rales Heart: RRR without murmur, gallop, or rubs. No ectopy Abdomen: Normal abdominal exam, Abdomen soft, non-tender. Bowel sounds normal. No masses, organomegaly Extremities: No deformities, edema, skin discoloration, clubbing or cyanosis. Good capillary refill. Musculoskeletal: No joint swelling, deformity, or tenderness Peripheral pulses: Normal Neuro: Gait normal. Reflexes normal and symmetric. Sensation grossly intact. Post-Fall Assessment/Plan Fall Injury: No Imaging: none Labs: none High Fall Risk Other interventions: recommend moving the patient closer to the nurses station Consults: defer Patient Active Hospital Problem List: Psychosis (HCC) (01/23/2018) Family notified by: Nurse SIGNATURE: Margie Guerrero APRN.CNP PATIENT NAME: Sherita Jurado DATE: 01/25/2018 TIME: 1:09 PM PAGER #: [phone] THERAPY NT Observed: 01/25/2018 Status: COMPLETED Source: [facility] 12:02 PM CLINIC OTHER CAMPUS REPOSITORY HNO ID: [id number] Author: LIS RAMIREZ (OT/L) Service: Occupational Therapy Author Type: Occupational Therapist Type: Therapy (PT/OT/Speech/Resp) Filed: 01/25/2018 12:16 PM Note Text: Occupational Therapy Evaluation SERVICE DATE: 01/25/2018 SERVICE TIME: 1120 to 1138 ROOM: [place] [address] Recommended Discharge Disposition: Home (to prior skilled nursing) Anticipated Discharge Needs: Physical Assist at Home Physical Assist at Home for: Cleaning;Laundry;Meals;Medication Management;Self Care;Shopping;Transportation OT Recommendations to Nursing: To Bathroom for ADL?s /and or Toileting;Edge of bed ADL?s;OOB for meals;ADL?s in chair Equipment: Wheeled Walker OT 6 Clicks Score: 18 Precautions/Activity Restrictions: Fall Risk ASSESSMENT: Pt is of low complexity secondary to brief medical review, including schizophrenia, Parkinsons with tremors, and hx falls, which may affect patient's rehab potential and add an unpredictable nature to their recovery. Pt presents with impaired safety, ADLs, IADLs, activity tolerance, and functional mobility, requiring repetition and varying methods of education and instruction. Pt requires skilled occupational therapy to address ADLs, IADLs, functional activities and functional mobility to increased activity tolerance, independence and safety with activity progression in safe environment. Pt has few different treatment options as well as multiple performance deficits requiring min task modification/assistance to complete eval. See below for further details. OT recommends Home for post-acute placement. Anticipate that pt will be safe to return to prior skilled nursing without OT services after acute stay, with increased assist available at skilled nursing as needed, d/t pt's good rehab potential, and with safe progression of activity with therapy. Pt currently functioning below baseline and to benefit from continued OT services during acute LOS to address performance skills required during ADLs, functional mobility, and functional transfers. Patient Disposition at Start of Session: Other: See Comment (amb in bathroom, no AD or clothing) Patient Disposition at End of Session: Call [place] in Reach;Supine in Bed Tolerated Full Session Occupational Therapy Problem List: Cognitive Deficit;Safety Deficits;Impaired Self Care;Decreased Activity Tolerance;Decreased Range Of Motion;Decreased Strength;Functional Mobility Impairment;Balance Impaired Patient /Caregiver Goals: Go Home (return to skilled nursing) Goals for Plan of Care: Upper Body Bathing with: Set Up Upper Body Dressing with: Modified Independent Lower Body Bathing with: Verbal Cues Only Lower Body Dressing with: Verbal Cues Only Rehab Potential: Good PLAN: Treatment Frequency (times per week): 3 Current admission Treatment Interventions: Education;Self Care / Home Management;Energy Conservation Training;Joint Mobility;Strengthening;Functional Mobility Training;Balance Training;Cognitive Training Plan of Care developed with: Patient TREATMENT INTERVENTIONS: Therapy Diagnosis: Reduced mobility-other;Decreased activities of daily living (ADL);Muscle Weakness (generalized);Unsteadiness on feet Interventions Provided: Evaluation;Therapeutic Activity (82141);Self Custodial Management (00568) $ Evaluation-Low (00730) Billed Units: 1 unit Therapeutic Activity (72937) Treatment Minutes: 5 0 units Skilled Intervention(s): Pt standing in bathroom without clothing or AD upon entering room. Instructed and educated pt on POC and role of therapy. Pt agreeable to therapy. Instruction in sit to and from stand technique with proper hand placement and body positioning at edge of bed/chair Education with safety during functional mobility and transfers, with cues for sequencing, spacing and pacing, upright posture, direction, and safe navigation within environment. Pt impulsive during mobility/transfers, cues/education provided to use steady pacing, slow safe speed, and safe hand placement to prevent falls or LOB. Instructed patient in supine to and from sit pushing with upper extremities to sit up Pt supine at end of session, positioned with call light and all personal items within reach. Instructed pt in use of call light for safety during 100% of OOB activity and all nursing needs, pt aware. Self Custodial Management (21895) Treatment Minutes: 8 1 unit Skilled Intervention(s): Provided instruction, cuing and facilitation for upper body dressing: Set Up seated EOB to don pullover shirt, after verbal front/back orientation to clothing. Provided cues for initiation of task, sequencing, and goal of task. Provided instruction, cuing and facilitation for lower body dressing: min A to don clean brief, pants, and socks seated EOB. Provided cues for technique, safety, initiation/continuation of task, sequencing, and goal of task. Increased assist for snaps on front of pants without pt attempt, with cues provided and adequate opportunity/time provided. Increased time/assistance required d/t pt impulsiveness and difficulty following commands. Total Timed Code Treatment Minutes: 13 Total Treatment Time (minutes): 18 FUNCTIONAL G CODE: OT 6 Clicks Score: 18 (01/25/18 1120) Self Care Current Status (G8987): CK (01/25/18 1120) Self Care Goal Status (G8988): CJ (01/25/18 112) Based on clinical assessment and the score on the 6 Clicks Functional Assessment Tool, the G code and corresponding severity modifiers are documented above. SUBJECTIVE: Current Hospital Course: Chart reviewed; Pt is a 72 yo M [facility] to Dr. Balderrama on 01/22/18. Reason for Occupational Therapy Consult: safety assessment Relevant Past Medical History: schizophrenia, Parkinson's with tremors, falls, Patient Report: no, no referring to pain level. Pt mostly nonverbal, able to speak 1-3 words at a time, with limited responses and subdued/quiet tone. Pt impulsive throughout eval, moving quickly/suddenly and with poor safety awareness. Home Environment Patient Lives With: Facility Care (skilled nursing) Assistance Available: 24 Hour Entry To Home: No Stairs Number Of Stairs To Bed/Bath: 0 (on ground floor) Tub/Shower Type: tub shower Equipment Owned: Hand Held Shower (may have shower chair) Prior Functional Level: History of Falls;Required Assistance Assistance Required With: Meals;Medication Management;Transportation;Shopping Prior Functional Level Comments: Per intake info from chasidy Cooper w/o AD, indep with ADLs, facility does cleaning, laundry, meals and medications. Pt participates in group activities and outings. OBJECTIVE: Communication Deficits: Non-verbal (pt mostly non-verbal, 1-2 words, quiet/limited responses) Responsiveness: Alert Follows Commands: 1-step Commands;2-step Commands;Cueing Needed Cueing to Follow Commands: Moderate (min cues 1-step, mod cues 2-step commands) CURRENT FUNCTIONAL STATUS: Current Activities of Daily Living Assist Level Feeding Set Up Grooming Contact Guard Assistance Bathing Upper Body Minimal Assistance Bathing Lower Body Minimal Assistance Dressing Upper Body Set Up (don pullover shirt, + cues, seated EOB, front/back orient) Dressing Lower Body Minimal Assistance (min A d/t diff follow commands, for snaps) Toileting Minimal Assistance (min A clothing mgmt, transfer/kayy care mod I) Instrumental Activities of Daily Living Assist Level Meal/Beverage Prep Light Cleaning Laundry Medication Management with Strategies Functional Mobility Assist Level Rolling Supine to Sit Contact Guard Assistance (pt move quickly, CGA d/t pt impulsive) Sit to Supine Stand By Assistance (pt move quickly/suddenly, poor safety awareness, + cues) Scooting Sit to Stand Contact Guard Assistance Stand to Sit Contact Guard Assistance Bed to Chair Toilet/Commode Functional Mobility Contact Guard Assistance Other: See Comment;Hand Held Assist (pt without AD, moves quickly, education use NSRW) Please see discipline specific clinical documentation flowsheet for complete details for this therapy evaluation/treatment. SIGNATURE: LIS RAMIREZ OT/L PATIENT NAME: Sherita Jurado DATE: January 25, 2018 TIME: 12:02 PM PROGRESS Observed: 01/25/2018 Status: COMPLETED Source: [facility] 10:36 AM CLINIC OTHER CAMPUS REPOSITORY O ID: [id number] Author: Vikram Washington Service: General Internal Medicine Author Type: Physician Type: Progress Notes Filed: 01/25/2018 6:16 PM Note Text: INTERNAL MEDICINE CONSULT PROGRESS NOTE SERVICE DATE: 01/25/2018 SERVICE TIME: 8 am CONSULTING SERVICE: Internal Medicine Subjective INTERVAL HISTORY OF PRESENT ILLNESS: No new c/o Current Facility-Administered Medications: acetaminophen 650 mg tab(s) (TYLENOL) 650 mg ORAL q 6 H PRN aluminum-magnesium hydroxide-simethicone 200-200-20 mg/5 mL 30 mL (MAALOX,MYLANTA,MAG-AL PLUS) 30 mL ORAL q 4 H PRN magnesium hydroxide 400 mg/5 mL 30 mL (MOM) 30 mL ORAL DAILY PRN carbidopa-levodopa 25-100 mg 1.5 tablet (SINEMET 25-100) 1.5 tablet ORAL QID carboxymethylcellulose sodium 1 Drop (CELLUVISC) 1 Drop BOTH EYES QID cholecalciferol 1,000 Units tab(s) (VITAMIN D3) 1,000 Units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 INTERVAL HISTORY OF PRESENT ILLNESS: Acute psychosis Known history of parkinson's disease admitted for in patient psych treatment for acute psychosis. 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 Denies any pain. Current Facility-Administered Medications: acetaminophen 650 mg tab(s) (TYLENOL) 650 mg ORAL q 6 H PRN aluminum-magnesium hydroxide-simethicone 200-200-20 mg/5 mL 30 mL (MAALOX,MYLANTA,MAG-AL PLUS) 30 mL ORAL q 4 H PRN magnesium hydroxide 400 mg/5 mL 30 mL (MOM) 30 mL ORAL DAILY PRN amantadine HCl 100 mg cap(s) (SYMMETREL) 100 mg ORAL DAILY carbidopa-levodopa 25-100 mg 1.5 tablet (SINEMET 25-100) 1.5 tablet ORAL QID carboxymethylcellulose sodium 1 Drop (CELLUVISC) 1 Drop BOTH EYES QID cholecalciferol 1,000 Units tab(s) (VITAMIN D3) 1,000 Units ORAL DAILY QUEtiapine 25 mg tab(s) (SEROquel) 25 mg ORAL DAILY haloperidol 0.25 mg tab(s) (HALDOL) 0.25 mg ORAL q 6 H PRN clarification of order pending ORAL q 4 H Objective PHYSICAL EXAM: Patient Vitals for the past 24 hrs: BP Temp Temp src Pulse Resp SpO2 Height Weight 01/23/18 0000 119/63 36.3 ?C (97.3 ?F) Oral 65 18 97 % 177.8 cm (5' 10) 72.6 kg (160 lb) Body mass index is 22.96 kg/m?. GENERAL: Alert, no distress, cooperative SKIN: Skin color, texture, turgor normal. No rashes or lesions. OROPHARYNX: negative NECK: No jugulovenous distention, Supple LUNGS: Lungs clear to auscultation. Good diaphragmatic excursion. CARDIAC: Normal S1 and S2; no rubs, murmurs, or gallops ABDOMEN: Abdomen soft, non-tender, BS normal, No masses or organomegaly EXTREMITIES: No ulcers NEURO: Negative PULSES: 2+ radial, 2+ carotid DATA: Diagnostic tests reviewed for today's visit: CBC, Coags, BMP, Mg, Phos Recent Labs 01/22/18 1555 WBC 5.94 HB 15.1 HCT 44.7 PLT 223 NA 131* K 3.9 CHLOR 93* CO2 30 BUN 10 CREAT 0.58* GLUC 86 CA 9.0 Impression/Recommendations Parkinson's disease - resume home medication Acute psychosis - psych treatment Mobility disorder Cognitive impairment Mild malnutrition Plan: Labs to follow Resume home medication DVT prophylaxis Psych treatment to continue SIGNATURE: Vikram Washington MD PATIENT NAME: Sherita Jurado DATE: January 23, 2018 TIME: 10:14 AM PAGER/CONTACT #: [phone] THERAPY NT Observed: 01/23/2018 Status: COMPLETED Source: [facility] 9:55 AM CLINIC OTHER CAMPUS REPOSITORY O ID: [id number] Author: Nicole (Pt) Luis Service: Physical Therapy Author Type: Physical Therapist Type: Therapy (PT/OT/Speech/Resp) Filed: 01/23/2018 12:18 PM Note Text: Physical Therapy Evaluation SERVICE DATE: 01/23/2018 SERVICE TIME: 9922 to 1010 [address]OM: [address] Recommended Discharge Disposition: Home (Return to skilled nursing, no follow up PT anticipated.) Anticipated Discharge Needs: Physical Assist at Home Physical Assist at Home for: Cleaning;Laundry;Meals;Medication Management;Self Care;Shopping;Transportation Recommended Discharge Equipment: No equipment needs anticipated PT Recommendations to Nursing: Ambulate without device;To bathroom;In halls;With assist of 1 person Device: No Device PT 6 Clicks Score: 18 Precautions/Activity Restrictions: Fall Risk ASSESSMENT : Patient Disposition at Start of Session: Other: See Comment (supine in recliner chair in dining area with staff) Patient Disposition at End of Session: OOB in Chair (in dining area) Tolerated Full Session Physical Therapy Problem List: Functional Mobility Impairment;Balance Impaired Patient /Caregiver Goals: (pt non verbal during session.Most likely return to group jorge) Goals for Plan of Care: Able to perform HEP with: Verbal Cues Only (standing LE therex and higher level standing balance activit) Transfer supine to/from sit with: Modified Independent Transfer sit to/from stand with: Modified Independent Ambulate with: Supervision Distance: 250 ft or greater Device: No Device Rehab Potential: Good PLAN: Treatment Frequency (times per week): 2 Treatment Duration (number): 2 Visits Treatment Interventions: Education;Functional Mobility Training;Balance Training Plan of Care developed with: Patient TREATMENT INTERVENTIONS: Therapy Diagnosis: Reduced mobility-other;Unsteadiness on feet;Abnormalities of gait and mobility-other Interventions Provided: Evaluation;Gait Training (12401) $ Evaluation-Low (21241) Billed Units: 1 unit Patient presents with Pt evaluation of low complexity due to few co-morbidities directly affecting pt's current condition. Pt's presentation is relatively stable/uncomplicated, not requiring continual or complex monitoring/assessment. Patient admitted to [facility] for increased paranoia and behavioral issues. Has prior history of schizophrenia and Parkinsons. Requires skilled PT to assess functional mobility and safety and make appropriate DC recommendations. Gait Training (99369) Treatment Minutes: 10 1 unit Skilled Intervention(s): Instruction in sit to stand technique with proper hand placement and body positioning at edge of bed/chair, Instruction in stand to sit technique with LE's touching chair/bed and reaching back for surface, Instruction in sequencing, gait pattern, Instruction in correction of gait deviations. Patient ambulated 200- 250 ft in total with light underarm CGA. Increased lateral sway and fast gait speed. Cues to decreased gait speed with minimal carryover. During ambulation, patient was able to walk while turning head R and L without any LOB, ambulate with a high step gait with slight unsteadiness, and make 360 deg turns to the right and left with light CGA for direction. Pre gait balance activities: side stepping R/L, forward walk eyes closed, retro walk x 20 ft each direction with light hand to hand CGA for safety. Total Timed Code Treatment Minutes: 10 Total Treatment Time (minutes): 15 FUNCTIONAL G CODE: PT 6 Clicks Score: 18 (01/23/18954) Mobility: Walking and Moving Around Current Status (G8978): CK (01/23/18954) Mobility: Walking and Moving Around Goal Status (G8979): CK (01/23/18954) Based on clinical assessment and the score on the 6 Clicks Functional Assessment Tool, the G code and corresponding severity modifiers are documented above. SUBJECTIVE: Current Hospital Course: Chart reviewed; Patient is a 72 year old male [facility] on 01/22/[facility] with increased paranoia and behavioral issues. Patient was then transferred to [facility] unit for medication mgmt and behavioral stabilization. Reason for Physical Therapy Consult : safety and functional mobility assessment Relevant Past Medical History: schizophrenia, Parkinson's with tremors, falls, Patient Report: Patient non verbal for duration of session, but nodded yes/no to most questions. Was able to follow 2 step instructions without any issues. Home Environment Patient Lives With: Facility Care (skilled nursing) Assistance Available: 24 Hour Entry To Home: No Stairs Number Of Stairs To Bed/Bath: 0 (on ground floor) Tub/Shower Type: tub shower Equipment Owned: Hand Held Shower (may have shower chair) Prior Functional Level: History of Falls;Required Assistance Assistance Required With: Meals;Medication Management;Transportation;Shopping Prior Functional Level Comments: Per intake info from [place], pt ambs w/o AD, indep with ADLs, facility does cleaning, laundry, meals and medications. Pt participates in group activities and outings. OBJECTIVE: CURRENT FUNCTIONAL STATUS: Current Functional Mobility Assist Level Additional Information Rolling Supine to Sit Sit to Supine Scooting Sit to Stand Contact Guard Assistance Stand to Sit Contact Guard Assistance Bed to Chair Toilet/Commode Gait Contact Guard Assistance Gait Device: None (light underarm CGA for safety) Gait Distance (feet): 200 ft Stairs Curb Step Car Transfer General Gait Deviations: Arm swing decreased;Lateral sway increased;Narrow Base of Support (mildly unsteady at times, fast gait speed) Activity Tolerance: Standing Activity Standing Activity: standing blance activities: unilateral stance, staggered stance, MIP, 360 deg turns to right and left Standing Activity Tolerance (in minutes): 5 Please see discipline specific clinical documentation flowsheet for complete details for this therapy evaluation/treatment. SIGNATURE: Nicole Smith PT PATIENT NAME: Sherita Jurado DATE: January 23, 2018 TIME: 12:06 PM NURSING PROG Observed: 01/23/2018 Status: COMPLETED Source: [facility] 3:03 AM CLINIC OTHER CAMPUS REPOSITORY [facility] ID: [id number] Author: Cynthia (Rn) JOSE Kirby Service: (none) Author Type: Registered Nurse Type: Nursing Progress Note Filed: 01/23/2018 4:22 AM Note Text: Nursing Progress Note Patient Name: Sherita Jurado Patient Location: [facility] [place] [facility] [place] Daily Note: 0030 patient came to the unit from [facility] where he BIB EMS for combative and psychotic behavior at the [place], patient was able to walk to the bed with one person assist, patient was grossly confused and disoriented, unable to follow simple directions, patient was incontinent for B AND B, incontinent care provided, reviewed safety measures, patient was restless, denied pain, tremor on both hands noted.1:1 care given. Skin intact. Bed alarm on. 0125 patient was awake, slammed the door and barricaded himself inside the room, resistive and did not allow the staff to get in, security called, patient opened the door and stayed in bed. 0150 Patient slammed the door multiple time and was yelling and threatening staff when asked to open the door, code marj called, security was able to open the door, patient was combative, new order for IM Haldol received from Registered Nurse, security at bed side. 0200 IM Haldol administered, reviewed safety measures, bed alarm on. 0240 Patient was grossly confused, unsteady, and was slamming the door, staff intervened and offered rhonda chair, 1:[address], patient accepted, ate snacks and was able to sit still in the DR with 1:1 care. 0315 patient was awake, sitting in the DR with staff, much calmer. 0420 Patient was sleeping in the DR in rhonda chair. This note was completed by: Cynthia Kirby RN ED NOTE Observed: 01/22/2018 Status: COMPLETED Source: [facility] 9:50 PM [facility] REPOSITORY [facility]NO ID: [id number] Author: Lis SpencerRn) JOSE Hernandez Service: Nursing Author Type: Registered Nurse Type: ED Notes Filed: 01/22/2018 9:57 PM Note Text: Pt denies auditory/visual hallucinations at this time. Pt urinated on the floor. ED NOTE Observed: 01/22/2018 Status: COMPLETED Source: [facility] 9:30 PM [facility] REPOSITORY [facility]NO ID: [id number] Author: Lis SpencerRn) JOSE Hernandez Service: Nursing Author Type: Registered Nurse Type: ED Notes Filed: 01/22/2018 9:31 PM Note Text: Pt laying in bed resting at this time, awaiting transport. ED NOTE Observed: 01/22/2018 Status: COMPLETED Source: [facility] 8:21 PM [facility] REPOSITORY [facility] ID: [id number] Author: Lis Watts) JOSE Hernandez Service: Nursing Author Type: Registered Nurse Type: ED Notes Filed: 01/22/2018 8:21 PM Note Text: Pt resting in bed at this time. Cooperating with staff. Independence given. Awaiting transport to [facility]. PLAN OF CARE Observed: 01/22/2018 Status: COMPLETED Source: [facility] 7:43 PM [facility] REPOSITORY [facility]NO ID: [id number] Author: Dilma Zelaya (Pharmacist) Service: Pharmacy Author Type: Pharmacist Type: Plan of Care Filed: 01/22/2018 7:44 PM Note Text: MEDICATION HISTORY Patient Name:Donato Jurado : 1945 Source of history:USP/Other [facility] - [facility], [facility] Medication Nonadherence Identified: No barriers noted The above information represents the best possible medication history: Yes Additional comments: Updated medication list to reflect [facility] provided by group home. Allergies: ALLERGIES Allergen Reactions - Goose Feathers Allen* Unknown - Zyprexa [Olanzapine] Unknown Current [employer] Medications: Prior to Admission medications as of 01/22/181942 Medication Sig Last Dose Taking carbidopa-levodopa (SINEMET) 25-100 mg per tablet Take 1.5 tablets by mouth four times daily. (at 6am, 12pm, 6pm, 10pm) 01/22/2018 at 0600 Yes carboxymethylcellulose (REFRESH CELLUVISC) 1 % ophthalmic solution Use 1 Drop in both eyes four times daily. 01/22/2018 at 0600 Yes donepezil (ARICEPT) 23 mg tablet Take 23 mg by mouth daily at bedtime. 01/21/2018 at 1999 Yes potassium chloride (K-TAB) 10 mEq tablet Take 10 mEq by mouth daily at bedtime. 01/21/2018 at 1999 Yes QUEtiapine (SEROQUEL) 25 mg tablet Take 25 mg by mouth every morning. 01/22/2018 at 0600 Yes QUEtiapine (SEROQUEL) 50 mg tablet Take 50 mg by mouth daily at bedtime. 01/21/2018 at 1999 Yes cholecalciferol (VITAMIN D) 1,000 unit tab tablet Take 1,000 Units by mouth once daily. 01/22/2018 at 0600 Yes amantadine HCl (SYMMETREL) 100 mg capsule Take 100 mg by mouth once daily. 01/22/2018 at 0600 Yes cyanocobalamin (VITAMIN B-12) 1,000 mcg/mL soln Inject 1,000 mcg intramuscularly once every month. Past Week at Unknown time Yes DILMA ZELAYA, PHARMACIST January 22, 2018 7:43 PM ED NOTE Observed: 01/22/2018 Status: COMPLETED Source: [facility] 7:00 PM [facility] OTHER [place] REPOSITORY HNO ID: [id number] Author: Balbina (Rn) JOSE Schmidt Service: (none) Author Type: Registered Nurse Type: ED Notes Filed: 01/22/2018 8:02 PM Note Text: Patient experienced a paranoia episode holding door and not allowing us in room. Patient settled and when evaluating situation patient said he was dreaming again and hearing voices and did not want them to come into his room. Patient assisted in changing into gown. Belongings placed in locker. Patient returned to bed and is resting. ED NOTE Observed: 01/22/2018 Status: COMPLETED Source: [facility] 6:30 PM CLINIC OTHER [place] REPOSITORY [facility] ID: [id number] Author: Balbina (Rn) JOSE Schmidt Service: (none) Author Type: Registered Nurse Type: ED Notes Filed: 01/22/2018 8:03 PM Note Text: Patient sat on side of bed and with assistance ate 75% of dinner tray. ED NOTE Observed: 01/22/2018 Status: COMPLETED Source: [facility] 6:00 PM CLINIC OTHER CAMPUS REPOSITORY [facility] ID: [id number] Author: Balbina (Rn) Brayan, RN Service: (none) Author Type: Registered Nurse Type: ED Notes Filed: 01/22/2018 8:04 PM Note Text: Patient spoke with intake and is agreeable to receiving help stabilizing medication CBC AND DIFFERENTIAL Collected: 01/22/2018 Status: F Source: [facility] 3:55 PM CLINIC OTHER CAMPUS REPOSITORY TYPE CODE TESTS RESULT OUT OF REFERENCE UNITS RANGE LAB WBC 3.70-11.00 k/uL WBC 5.94 LAB RBC 4.20-6.00 m/uL RBC 4.54 LAB HGB 13.0-17.0 g/dL Hemoglobin 15.1 LAB HCT 39.0-51.0 % Hematocrit 44.7 LAB MCV 80.0-100.0 fL MCV 98.5 LAB MCH 26.0-34.0 pG MCH 33.3 LAB MCHC 30.5-36.0 g/dL MCHC 33.8 LAB RDWCV 11.5-15.0 % RDW-CV 12.5 LAB PLTCT 150-400 k/uL Platelet Count 223 LAB MPV 9.0-12.7 fL MPV 9.4 LAB ANEUT % Neut% 77.1 LAB AANEUT 1.45-7.50 k/uL Abs Neut 4.58 LAB ALYMP % Lymph% 11.8 LAB AALYMP 1.00-4.00 k/uL Low Abs Lymph 0.70 LAB AMONO % Ceiba% 8.2 LAB AAMONO <0.87 k/uL Abs Ceiba 0.49 LAB AEOS % Eosin% 1.9 LAB AAEOS <0.46 k/uL Abs Eosin 0.11 LAB ABASO % Baso% 1.0 LAB AABASO <0.11 k/uL Abs Baso 0.06 Performed By: #### CBCDIF, ALCO, CMP #### [facility] [address] [place] [address] ETHANOL Collected: 01/22/2018 Status: F Source: [facility] 3:55 PM CLINIC OTHER CAMPUS REPOSITORY TYPE CODE TESTS RESULT OUT OF REFERENCE UNITS RANGE LAB ALCO <11 mg/dL Ethanol <11 Performed By: #### CBCDIF, ALCO, CMP #### [facility] [address] [facility] [phone] COMP METABOLIC PANEL Collected: 01/22/2018 Status: F Source: [facility] 3:55 PM CLINIC OTHER CAMPUS REPOSITORY TYPE CODE TESTS RESULT OUT OF REFERENCE UNITS RANGE LAB TP 6.3-8.0 g/dL Protein, Total 7.6 LAB ALB 3.9-4.9 g/dL Albumin 3.9 LAB CA 8.5-10.2 mg/dL Calcium, Total 9.0 LAB TBIL 0.2-1.3 mg/dL Bilirubin, Total 0.7 LAB ALKP 38-113 U/L Alkaline Phosphatase 76 LAB AST 14-40 U/L AST 18 LAB GLU 74-99 mg/dL Glucose 86 Result Comment: The [place] Diabetes [employer] (ADA) provides guidance for cutoff values for fasting glucose and random glucose. The ADA defines fasting as no caloric intake for at least 8 hours. Fas ting plasma glucose results between 100 to 125 mg/dL indicate increased risk for diabetes (prediabetes). Fasting plasma glucose results greater than or equal to 126 mg/dL meet the criteria for diagnosis of diabetes. In the absence of unequivocal hyperglycemia, results should be confirmed by repeat testing. In a patient with classic symptoms of hyperglycemia or hyperglycemic crisis, random plasma glucose results greater than or equal to 200 mg/dL meet the criteria for diagnosis of diabetes. Reference: Standards of Medical Care in Diabetes 2016, [place] [employer] Association. Diabetes Care. 2016.39(Suppl 1). LAB BUN 9-24 mg/dL BUN 10 LAB CRET 0.73-1.22 mg/dL Creatinine Low 0.58 LAB NA 136-144 mmol/L Sodium Low 131 LAB K 3.7-5.1 mmol/L Potassium 3.9 LAB CL 97-105 mmol/L Chloride Low 93 LAB CO2 22-30 mmol/L CO2 30 LAB AGAP 9-18 mmol/L Anion Gap Low 8 LAB ALT 10-54 U/L ALT Low <5 LAB GFRAA eGFR- Amer. >60 LAB GFRNAA . eGFR-All Other Races >60 Result Comment: eGFR (Estimated GFR) Units of measure: mL/min/1.73 meters squared eGFR is derived from the reexpressed MDRD Study equation using the following parameters: serum creatinine, age, gender and race. The creatinine assay has been calibrated to be traceable to IDND. An eGFR <60 mL/min/1.73m2 for >3 months is consistent with chronic kidney disease. Refer to KDOQI guidelines for clinical interpretation. In patients with unstable renal function, e.g. those with acute kidney injury, the eGFR may not accurately reflect actual GFR. Performed By: #### CBCDIF, ALCO, CMP #### [facility] [address] [place] [address] URINALYSIS Collected: 01/22/2018 Status: F Source: [facility] 3:50 PM [facility] REPOSITORY TYPE CODE TESTS RESULT OUT OF REFERENCE UNITS RANGE LAB UCOL Yellow Color Yellow LAB [facility] Clear Clarity Clear LAB UGLUC Negative mg/dL Glucose, Urine Negative LAB UBIL Negative Bilirubin, Urine Negative LAB UKET Negative Ketones, Urine Negative LAB USPG 1.001-1.029 Specific [place], Ur 1.010 LAB UHGB Negative Hemoglobin/Blood, Negative Ur LAB UPH 5.0-8.0 pH 7.0 LAB UPROT Negative mg/dL Protein, Urine Negative LAB UUROB 0.2-1.0 Urobilinogen 1.0 LAB UNITR Negative Nitrites Negative LAB ULKEST Negative Leukest Negative Performed By: #### UA, UTOX2 #### [facility] [address] [place] [address] TOXICOLOGY SCREEN,UR Collected: 01/22/2018 Status: F Source: [facility] 3:50 PM [facility] OTHER [place] REPOSITORY TYPE CODE TESTS RESULT OUT OF REFERENCE UNITS RANGE LAB UPCP2 Negative Negative Phencyclidin e, Urine Result Comment: Cutoff threshold at 25 ng/mL. LAB UBENZ2 Negative Benzodiazepines, Ur Negative Result Comment: Cutoff threshold at 200 ng/mL. LAB UCOC2 Negative Cocaine, Negative Urine Result Comment: Cutoff threshold at 300 ng/mL. LAB UAMPH2 Negative Amphetamines, Urine Negative Result Comment: Cutoff threshold at 1000 ng/mL. LAB UTHC2 Negative Cannabinoids, Urine Negative Result Comment: Cutoff threshold at 50 ng/mL. LAB UOPI2 Negative Opiates, Negative Urine Result Comment: Cutoff threshold at 300 ng/mL. LAB UBARB2 Negative Barbiturates, Urine Negative Result Comment: Cutoff threshold at 200 ng/mL. LAB UOXYC Negative Oxycodone, Urine Negative Result Comment: Cutoff threshold at 100 ng/mL. Comment: Immunoassay screen only. Cross reactivity with other substances can occur with immunoassay screening. Detection of any drug(s) in this urine toxicology panel is presumptive only. These tests are for med ica purposes only and should not be used for compliance monitoring, legal, or forensic use. Samples should be within normal physiological conditions (e.g. pH). This assay does not include adulteration/specimen validity testing. In clinical settings, confirmatory testing is at the practitioner's discretion [1]. If clinically indicated, confirmation by high specificity, quantitative methodology, which includes adulteration/spec imen validity testing, may be requested on the same specimen through Client Services ([phone]) if contacted within 48 hours of initial testing. [1]Substance Abuse and Mental Health Services Administration (2012). Clinical Drug Testing in Primary Care Technical Assistance Publication Series 32. Department of Health and Human Services, [place], p.10. Performed By: #### UA, UTOX2 #### [facility] [address] [facility] [phone] EKG Observed: 01/22/2018 Status: F Source: [facility] 3:34 PM CLINIC OTHER CAMPUS REPOSITORY NAME : SHERITA JURADO PID : [id number] : 1945 Gender : Male Race : ORD : [id number] Procedure Date : Jan 22 2018 15:34:32 Edit Date : Jan 23 2018 07:03:24 Diagnosis:NORMAL SINUS RHYTHM LEFT AXIS DEVIATION ABNORMAL ECG WHEN COMPARED WITH ECG OF 03-SEP-2017 15:52, FUSION COMPLEXES ARE NO LONGER PRESENT VENT. RATE HAS DECREASED BY [address] NOW DEPRESSED IN INFERIOR LEADS NON-SPECIFIC CHANGE IN ST SEGMENT IN ANTERIOR LEADS AGREE NO CHANGES Confirmed by MD STRANGE CARL ([id number]), editorial project manager HARMEET PEREZ ([id number]) on 01/23/2018 7:03:17 AM Ventricular Rate : 63 BPM Atrial Rate : 63 BPM P-R Interval : 138 ms QRS Duration : 90 ms Q-T Interval : 418 ms QTC Calculation(Bezet) : 427 ms P Butte : 62 degrees R Butte : -40 degrees T [place]te : 40 degrees Test Reason : Arrhythmia Location : 1 : ER 8 Overread By : MD STRANGE CARL Edited By : HARMEET PEREZ Referred By : , Acquired by : PS, ED PROV NOTE Observed: 01/22/2018 Status: COMPLETED Source: [facility] 3:30 PM CLINIC OTHER CAMPUS REPOSITORY [facility] ID: [id number] Author: Sherita Strange MD Service: (none) Author Type: Physician Type: ED Provider Notes Filed: 01/22/2018 8:17 PM Note Text: ED Provider Note Patient Name: Sherita Jurado SERVICE DATE: 01/22/18 History Patient presents with: Psychiatric Problem: brought in by [facility] for psych reasons The patient presents for psychiatric evaluation from a group home. He has a history of known Parkinson's disease and schizophrenia. Apparently he was not cooperative at the group home lying on the floor and refusing to take his medications no history of combativeness. Patient has no insight or recalls to why he is here or the actions leading up to his transfer. He denies any bodily complaints of pain I'm not given any history of fall or head trauma denies fever chills. He now presents for evaluation. I spoke to his PCP who manages him at the nursing facility she advised me of the patient lays on the floor naked lays on the bed naked is been refusing to take any of his medications and he cannot be handled at the group home. She is requesting psychiatric evaluation for review of his medications PAST MEDICAL HISTORY Diagnosis Date - Actinic keratosis - Breast lump LT breast; cavernous hemangioma/excised - Dizziness - Epidermoid cyst of skin - Falls - Lipoma of skin forearms and abdomen - Mammogram abnormal suspicious of cancer- referral made - Obesity - On upper doubler drug therapy - Palpitations - Parkinson disease (HCC) - Schizophrenia (HCC) - Tremor - Vitamin D deficiency PAST SURGICAL HISTORY Procedure Laterality Date - NONE FAMILY HISTORY Problem Relation Age of Onset - Family history unknown: Yes Social History Social History Main Topics - Smoking status: Former Smoker - Smokeless tobacco: Never Used - Alcohol use No - Drug use: No - Sexual activity: Not on file ALLERGIES Allergen Reactions - Goose Feathers Allen* Unknown - Zyprexa [Olanzapine] Unknown Review of Systems Constitutional: Negative. HENT: Negative. Eyes: Negative. Respiratory: Negative. Cardiovascular: Negative. Gastrointestinal: Negative. Genitourinary: Negative. Musculoskeletal: Negative. Neurological: Negative for seizures, syncope, weakness and headaches. History of Parkinson's Psychiatric/Behavioral: Positive for behavioral problems. Negative for agitation, self-injury and suicidal ideas. History of schizophrenia Physical Exam BP 134/72 Pulse 71 Temp (Src) 98.5 (Oral) Resp 18 Ht 5' 10 (1.78m) Wt 166 lb (75.3kg) SpO2 97% BMI 23.82 kg/(m2). Physical Exam Constitutional: He appears well-developed and well-nourished. No distress. HENT: Head: Normocephalic and atraumatic. Nose: Nose normal. Eyes: Pupils are equal, round, and reactive to light. EOM are normal. Right eye exhibits no discharge. Left eye exhibits no discharge. Neck: Normal range of motion. Neck supple. No tracheal deviation present. Cardiovascular: Normal rate, regular rhythm, normal heart sounds and intact distal pulses. Pulmonary/Chest: Effort normal and breath sounds normal. No respiratory distress. Abdominal: Soft. He exhibits no mass. There is no tenderness. Musculoskeletal: Normal range of motion. He exhibits no edema, tenderness or deformity. Neurological: He is alert. No sensory deficit. Oriented to person. Slight tremor and extremities noted Skin: Skin is warm and dry. No rash noted. Psychiatric: Patient is cooperative answer simple questions appropriately is not showing any evidence of having any hallucinations. Insight is poor. Judgment is poor memory for Diagnostic Testing ED Labs Ordered and Reviewed - No data to display Procedures ED Course / Clinical Impression Clinical Impressions as of Jan 23 2016 Schizophreniform disorder (HCC) MDM / Disposition / Plan EKG shows a sinus rhythm rate 63 without evidence of acute ST abnormality. Comprehensive metabolic panel shows no significant acute abnormalities. CBC within normal limits. Alcohol level less than 11 urinalysis was negative for leukocytes and nitrites. Toxicology screen was negative. Patient was cooperative he was given his normal routine psychiatric medications. Central intake was contacted was interviewed I also spoke to the patient's PCP at group home doctor Ai who indicated they were unable to have the patient return to the group home because they could not handle him. Patient was accepted for psychiatric admission at [facility] by Dr. Serrano SIGNATURE: MD Sherita Flores MD 01/22/182016 ED NOTE Observed: 01/22/2018 Status: COMPLETED Source: [facility] 3:25 PM CLINIC OTHER CAMPUS REPOSITORY [facility] ID: [id number] Author: Balbina SpencerRn) JOSE Schmidt Service: (none) Author Type: Registered Nurse Type: ED Notes Filed: 01/22/2018 7:57 PM Note Text: Patient having paranoia episodes at nursing facility. Found in room laying on floor with no clothes on. Refusing to take medications and refusing to eat. Per nursing staff patient is altered from his normal mental state. ED NOTE Observed: 01/22/2018 Status: COMPLETED Source: [facility] 3:10 PM CLINIC OTHER [place] REPOSITORY [facility] ID: [id number] Author: Diana SpencerRn) JOSE Powell Service: (none) Author Type: Registered Nurse Type: ED Notes Filed: 01/22/2018 3:11 PM Note Text: Patient brought in by [facility] from [facility], for psych reasons CASE MANAGEM Observed: 12/24/2017 Status: COMPLETED Source: [facility] 2:49 PM [facility] REPOSITORY [facility] ID: [id number] Author: Spring Anna (Sw) Service: Care Management Author Type: Mathematics Faculty Member Type: Care Mgt Progress Note Filed: 12/24/2017 2:54 PM Note Text: CARE MANAGEMENT DISCHARGE NOTE SERVICE DATE: 12/24/2017 SERVICE TIME: 2:49 PM LOS: 0 days Admission Date: 12/17/2017 DISCHARGE ARRANGEMENT (list agency and phone number) halfway facility: Was an expedited discharge program used? No [facility] ASSESSMENT: Caregiver is ready, willing and able to meet the patient's needs as recommended by the inter-professional team? Yes Patient's transition needs and plan for meeting these needs: Pt d/c to SNF where his needs will be met. Does the patient have an acute stroke diagnosis, or has the patient had a stroke during this admission? No HANDOFF COMMUNICATION: Primary Care Physician: David Hidalgo TRANSPORTATION ARRANGEMENTS: Mode of Transportation: Ambulance Transportation Agency and Phone #: [facility] ambulance ( [facility] ) [phone] / [phone]. Date of Trip: 12/24/2017 Type of Service: BLS Non-emergency Is Patient Medicaid Pending: No and pt has active Medicaid Discussion of financial coverage occurred with Guardian . Statue Carver Location: [facility], , 215[address]2 Destination: [facility] Financial Care Management Responsibility: None Estimated Charge: n/a Approving Bariatric Nurse: n/a ADDITIONAL CONTACT RESOURCES: n/a D/c orders received for pt to d/c to SNF where his needs will be met. Sw met with pt bedside to discuss d/c plan. Pt is agreeable. Sw called and spoke with pt's guardian, Conrad Cole, who is agreeable with d/c and req transportation be arranged. [facility]lette arranged for 5:30pm. Guardian aware. No additional identified skilled needs nor questions at this time. Summary of care sent to PCP and SNF via [employer]. SIGNATURE: BALTA Pacheco, PEDRO PATIENT NAME: Sherita Jurado DATE: December 24, 2017 TIME: 2:49 PM PAGER/CONTACT #: [phone] CNDS Observed: 12/24/2017 Status: COMPLETED Source: [facility] 2:03 PM CLINIC OTHER CAMPUS REPOSITORY [facility] ID: [id number] Author: Eugenia Rai Service: Hospital Medicine Author Type: Physician Type: Discharge Summaries Filed: 12/24/2017 2:26 PM Note Text: DISCHARGE SUMMARY PATIENT NAME: Sherita Jurado ADMISSION DATE: 12/17/2017 DISCHARGE DATE: 12/24/2017 Attending Physician: Eugenia Rai Code Status: Not on file Highest Readmission Risk Score: 16 The 30 day readmissions risk score is derived from an internally validated risk model which evaluates patient level characteristics, utilization history, medication orders and lab results up until the day of discharge. Patients with a score of 40 or above are considered highest risk for readmission. Specific patient level drivers will be listed at the bottom of the summary. HPI: Addendum: 72-year-old male with Parkinson's disease and schizophrenia who wandered from his skilled nursing and was taken to [facility] for medical clearance after being out PE for over 10 hours He was cleared medically sent to the skilled nursing but sent back to the emergency department because a skilled nursing since they could not stop him from wandering, he is progressively falling and weak and he is unable to eat because of tremor from his Parkinson's disease. Eugenia Rai MD December 24, 2017 2:26 PM Operations During Hospitalization: None Procedures During Hospitalization: No procedures performed Hospital Course: No notes on file Assessment AND Plan, all Hosp Problems Active Hospital Problems as of 12/24/2017 Noted - Resolved Hospital Alteration in self-care ability 12/18/2017 - Present Current Assessment AND Plan Assessment: The patient had been functioning in a skilled nursing and is now weak and falling and unable to feed himself and has begun wandering off and getting lost PLAN: PT OT and neurology evaluations with plans for snf home placement at least temporarily Physical debility 12/18/2017 - Present Current Assessment AND Plan Assessment: Apparently falling and weak which are new along with his increased confusion making unmanageable and non-locked facility PLAN: PT recommend snf facility Schizophrenia ([facility]) 09/07/2017 - Present Current Assessment AND Plan Assessment: Problem is stable with current regimen. PLAN: Stopped antipsychotic medications Severe protein-calorie malnutrition ([facility]) 09/04/2017 - Present Current Assessment AND Plan Assessment: patient eating everything on his tray every time I've been in the room PLAN: continue oral supplements along with diet Parkinsonism ([facility]) 09/05/2017 - Present Current Assessment AND Plan Assessment: tremor much improved with medication changes PLAN: Continue to monitor Per neurology increased Sinemet to QID Resolved Hospital Problems as of 12/24/2017 Noted - Resolved Hospital * (Principal)Confusion 12/17/2017 - 12/24/2017 Overview Delirium 12/20/2017 - 12/20/2017 Transitions of Care Critical Issues: . LABS AND PROCEDURES PENDING AT DISCHARGE: No pending results. Consulting Teams During Hospitalization: Neurology: . Patient Condition @ Discharge: Good Discharge Disposition: [facility] Discharge Physical Exam: VITAL SIGNS: BP 126/61 Pulse 73 Temp 36.9 ?C (98.4 ?F) (Oral) Resp 16 Ht 177.8 cm (5' 10) Wt 75.4 kg (166 lb 3.2 oz) SpO2 96% BMI 23.85 kg/m? GENERAL: Alert, no distress, cooperative SKIN: Skin color, texture, turgor normal. No rashes or lesions. HEAD/SINUSES: No significant findings EYES: PERRLA, EOMI OROPHARYNX: Lips, mucosa, and tongue normal. Teeth and gums normal. Oropharynx normal. NECK: No jugulovenous distention, No carotid bruits, Carotid pulse normal contour, Supple BACK: Back symmetric, Normal curvature, ROM normal, No CVAT. LUNGS: Lungs clear to auscultation, Good diaphragmatic excursion CARDIAC: Normal S1 and S2; no rubs, murmurs, or gallops ABDOMEN: Abdomen soft, non-tender, BS normal, No masses or organomegaly EXTREMITIES: Extremities normal, no deformities, edema, clubbing or skin discoloration. Good capillary refill. No ulcers. Tremors. PULSES: 2+ radial, 2+ carotid Information Provided to Patient: none Diet: Resume pre-hospital diet Activity: Resume pre-hospital activity Risk for fall. Wound/Surgical Site Care: None ALLERGIES Allergen Reactions - Goose Feathers Allen* Unknown - Zyprexa [Olanzapine] Unknown Discharge Medications: Current Discharge Medication List START taking these medications traZODone (DESYREL) 25 mg Take 25 mg by mouth at bedtime as needed (insomnia). CONTINUE these medications which have CHANGED carbidopa-levodopa (SINEMET 25-100) 1.5 tablets Take 1.5 tablets by mouth four times daily. Refills: 0 CONTINUE these medications which have NOT CHANGED carboxymethylcellulose sodium (CELLUVISC) 1 Drop Use 1 Drop in both eyes four times daily. cholecalciferol (VITAMIN D3) 1,000 Units Take 1,000 Units by mouth once daily. donepezil (ARICEPT) 1 tablet Take 1 tablet by mouth daily at bedtime. STOP taking these medications amantadine HCl (SYMMETREL) 100 mg Comments: Reason for Stopping: QUEtiapine (SEROquel) 50 mg Comments: Reason for Stopping: Future Appointments: Future Appointments Date Time Provider Department Center 01/19/2018 8:10 AM Deirdre QURESHI The patient's risk for 30-day readmission is determined using the following contributing factors: Pt variables contributing to increased readmission risk: 23 Most Recent BUN Result 8.8 First Resulted Calcium During Admission 7 Active Medication Orders 4 Number of Previous ED Visits (6 mos.) 1 Previous ED Visit (6 mos.)? 1 Insurance - Medicare 1 Barriers to Health Literacy Identified 1 Number of Hospitalizations (12 mos.) TIME OF CARE: Discharge Management: I personally spent greater than 30 minutes involved in the discharge management of this patient. SIGNATURE: Eugenia Rai MD PAGER: [phone] DATE: December 24, 2017 TIME: 2:03 PM BASIC METABOLIC PANL Collected: 12/24/2017 Status: F Source: [facility] 4:38 AM CLINIC OTHER CAMPUS REPOSITORY TYPE CODE TESTS RESULT OUT OF REFERENCE UNITS RANGE LAB GLU 74-99 mg/dL Glucose 92 Result Comment: The [place] Diabetes Association (ADA) provides guidance for cutoff values for fasting glucose and random glucose. The ADA defines fasting as no caloric intake for at least 8 hours. Fas ting plasma glucose results between 100 to 125 mg/dL indicate increased risk for diabetes (prediabetes). Fasting plasma glucose results greater than or equal to 126 mg/dL meet the criteria for diagnosis of diabetes. In the absence of unequivocal hyperglycemia, results should be confirmed by repeat testing. In a patient with classic symptoms of hyperglycemia or hyperglycemic crisis, random plasma glucose results greater than or equal to 200 mg/dL meet the criteria for diagnosis of diabetes. Reference: Standards of Medical Care in Diabetes 2016, [place] Diabetes Association. Diabetes Care. 2016.39(Suppl 1). LAB BUN 9-24 mg/dL BUN 23 LAB CRET 0.73-1.22 mg/dL Creatinine 0.73 LAB NA 136-144 mmol/L Sodium 137 LAB K 3.7-5.1 mmol/L Potassium 4.5 LAB CL 97-105 mmol/L Chloride 99 LAB CO2 22-30 mmol/L CO2 High 32 LAB AGAP 9-18 mmol/L Low Anion Gap 6 LAB CA 8.5-10.2 mg/dL Calcium, Total 8.8 LAB GFRAA eGFR- Amer. >60 LAB GFRNAA . eGFR-All Other Races >60 Result Comment: eGFR (Estimated GFR) Units of measure: mL/min/1.73 meters squared eGFR is derived from the reexpressed MDRD Study equation using the following parameters: serum creatinine, age, gender and race. The creatinine assay has been calibrated to be traceable to IDMS. An eGFR <60 mL/min/1.73m2 for >3 months is consistent with chronic kidney disease. Refer to KDOQI guidelines for clinical interpretation. In patients with unstable renal function, e.g. those with acute kidney injury, the eGFR may not accurately reflect actual GFR. Performed By: #### BMP #### [facility] [address] [place] [address] CNCO Observed: 12/24/2017 Status: COMPLETED Source: [facility] 12:00 AM CLINIC OTHER CAMPUS REPOSITORY Letter Text December 24, 2017 Sherita Dacosta Adrien [address] [facility] [id number] Dear Mr. Jurado, The nurses and staff of [facility] hope this letter finds you feeling well and progressing in your recovery. Our staff would like to thank you for trusting and choosing us for your health care needs. It was an honor for us to provide your nursing care. We know that placing our Patients First and maintaining a culture of continuous improvement each and every day, are essential to the success of our organization. I hope your stay with us has been positive. We want to hear from you. If you have any comments, questions or concerns about your hospital stay, please feel free to contact me, Gabriela Espinosa RN ([phone]) or email me at, [email or web address] Additionally, you will receive a survey in the mail asking you to rate the care you received while in the hospital. Please take the time to complete and send back the survey, as it is essential to our continued success. I personally review all the results and would appreciate your feedback. Thank you in advance for your participation and thank you for choosing the [facility] for your health needs. Sincerely, Nurse Bariatric Nurse: Gabriela Espinosa RN ([phone]) [facility] Unit: [address] Letter Text December 25, 2017 Department of Hospital Medicine [address] [place] [address] Re: Sherita Jurado Dear Dr. Hidalgo: A patient of your practice, Sherita Jurado (: 1945) was treated at [facility] the care of [facility] Department of Hospital Medicine, and discharged on 12/24/2017. A transcribed discharge summary should be forthcoming promptly. If you need additional information or assistance, you may contact the Department of Hospital Medicine at [phone] during regular business hours, and we?ll be happy to assist you. Best Regards, Cristobal Barrera PROGRESS Observed: 12/23/2017 Status: COMPLETED Source: [facility] 6:35 PM CLINIC OTHER CAMPUS REPOSITORY [facility] ID: [id number] Author: Eugenia Monet) Robinarustabelino Service: Hospital Medicine Author Type: Physician Type: Progress Notes Filed: 12/23/2017 6:36 PM Note Text: SERVICE DATE: 12/23/2017 SERVICE TIME: 6:35 PM HOSPITAL MEDICINE PROGRESS NOTE NIGHT AND WEEKEND COVERAGE: Nights: Please contact pager [phone]. Reason for Admission/Observation: Wandering from skilled nursing and unable to be cared for there HOSPITAL DAY ZERO: 12/17/2017 Presentation: 72-year-old male with Parkinson's disease and schizophrenia who wandered from his skilled nursing and was taken to [facility] for medical clearance after being out PE for over 10 hours He was cleared medically sent to the skilled nursing but sent back to the emergency department because a skilled nursing since they could not stop him from wandering, he is progressively falling and weak and he is unable to eat because of tremor from his Parkinson's disease. Consultants: Dr. Mcfarland neurology Disposition: Extended Care Facility SUBJECTIVE Interval HPI: No chest pain or shortness of breath. Continued improvement after medication changes made. Waiting precertification for rehab Most likely DC in AM. OBJECTIVE Reviewed lines, drains, AND airways. Need to be continued . BP 128/71 Pulse 77 Temp 37 ?C (98.6 ?F) (Oral) Resp 17 Ht 177.8 cm (5' 10) Wt 75.4 kg (166 lb 3.2 oz) SpO2 96% BMI 23.85 kg/m? GENERAL: Alert, no distress, cooperative NECK: No Jugulovenous distention LUNGS: Clear respiratory distress -No CARDIAC: RRR without murmur, rub, or gallop ABDOMEN: Abdomen soft, non-tender, BS normal, No masses or organomegaly EXTREMITIES:no edema No cords - he has multiple bruises over his lower legs of various stages of healing consistent with frequent falls NEURO: Grossly motor function, and cranial nerves with mild tremor DATA: Diagnostic tests reviewed for today's visit: Most recent labs Overview was reviewed. Pulse ox CARE COORDINATION: No Patient Care Coordination Note on file. ASSESSMENT AND PLAN Assessment AND Plan, all Hosp Problems Active Hospital Problems as of 12/23/2017 Noted - Resolved Hospital * (Principal)Confusion 12/17/2017 - Present Current Assessment AND Plan Assessment: this is clearing and he appears to be improving with medication changes. Patient eating extremely well and completing his diet PLAN: awaiting precertification for snf facility for rehabilitation for physical debility Alteration in self-care ability 12/18/2017 - Present Current Assessment AND Plan Assessment: The patient had been functioning in a skilled nursing and is now weak and falling and unable to feed himself and has begun wandering off and getting lost PLAN: PT OT and neurology evaluations with plans for snf home placement at least temporarily Physical debility 12/18/2017 - Present Current Assessment AND Plan Assessment: Apparently falling and weak which are new along with his increased confusion making unmanageable and non-locked facility PLAN: PT recommend snf facility Schizophrenia ([facility]) 09/07/2017 - Present Current Assessment AND Plan Assessment: Problem is stable with current regimen. PLAN: Continue current regimen Severe protein-calorie malnutrition ([facility]) 09/04/2017 - Present Current Assessment AND Plan Assessment: patient eating everything on his tray every time I've been in the room PLAN: continue oral supplements along with diet Parkinsonism ([facility]) 09/05/2017 - Present Current Assessment AND Plan Assessment: tremor much improved with medication changes PLAN: continue to monitor Medication and Non-Pharmacologic VTE Prophylaxis/Anticoagulants 12/20/17 1215 activity - mobilize patient (mo,ma) 12/17/17 2230 pneumatic compression stockings (mo,ma) 12/17/17 2230 activity - mobilize patient ([place]) VTE Prophylaxis: VTE prophylaxis appropriate Plan of care discussed with: Patient SIGNATURE: Eugenia Rai MD PATIENT NAME: Sherita Jurado DATE: December 23, 2017 TIME: 6:35 PM PAGER/CONTACT #: [phone] CASE MANAGEM Observed: 12/23/2017 Status: COMPLETED Source: [facility] 4:26 PM CLINIC OTHER CAMPUS REPOSITORY HNO ID: [id number] Author: Spring Anna (Sw) Service: Care Management Author Type: Mathematics Faculty Member Type: Care Mgt Progress Note Filed: 12/23/2017 4:28 PM Note Text: CARE MANAGEMENT PROGRESS NOTE SERVICE DATE: 12/23/2017 SERVICE TIME: 4:26 PM LOS: 0 days Needs Prior to Discharge: Discharge Transportation;Patient/Family Patient/Family: (guardian) Joao reviewed EMR. Jaimee Ugalde has precert. Joao [place] [facility] [place] Conrad Cole [phone] re: d/c transportation. No response. Will address d/c transportation in the morning. Sw met with pt bedside to inform of precert and anticipated d/c tomorrow. Pt agreeable. CM will continue to follow for d/c planning. SIGNATURE: BALTA Pacheco, PEDRO PATIENT NAME: Sherita Jurado DATE: December 23, 2017 TIME: 4:26 PM PAGER/CONTACT #: [phone] BASIC METABOLIC PANL Collected: 12/23/2017 Status: F Source: [facility] 5:40 AM CLINIC OTHER CAMPUS REPOSITORY TYPE CODE TESTS RESULT OUT OF REFERENCE UNITS RANGE LAB GLU 74-99 mg/dL Glucose 86 Result Comment: The [place] Diabetes [employer] (ADA) provides guidance for cutoff values for fasting glucose and random glucose. The ADA defines fasting as no caloric intake for at least 8 hours. Fas ting plasma glucose results between 100 to 125 mg/dL indicate increased risk for diabetes (prediabetes). Fasting plasma glucose results greater than or equal to 126 mg/dL meet the criteria for diagnosis of diabetes. In the absence of unequivocal hyperglycemia, results should be confirmed by repeat testing. In a patient with classic symptoms of hyperglycemia or hyperglycemic crisis, random plasma glucose results greater than or equal to 200 mg/dL meet the criteria for diagnosis of diabetes. Reference: Standards of Medical Care in Diabetes 2016, [place] [employer]. Diabetes Care. 2016.39(Suppl 1). LAB BUN 9-24 mg/dL BUN 14 LAB CRET 0.73-1.22 mg/dL Creatinine Low 0.62 LAB NA 136-144 mmol/L Sodium Low 135 LAB K 3.7-5.1 mmol/L Potassium 4.1 LAB CL 97-105 mmol/L Chloride Low 96 LAB CO2 22-30 mmol/L CO2 29 LAB AGAP 9-18 mmol/L Anion Gap 10 LAB CA 8.5-10.2 mg/dL Calcium, Total 9.0 LAB GFRAA eGFR- Amer. >60 LAB GFRNAA . eGFR-All Other Races >60 Result Comment: eGFR (Estimated GFR) Units of measure: mL/min/1.73 meters squared eGFR is derived from the reexpressed MDRD Study equation using the following parameters: serum creatinine, age, gender and race. The creatinine assay has been calibrated to be traceable to IDMS. An eGFR <60 mL/min/1.73m2 for >3 months is consistent with chronic kidney disease. Refer to KDOQI guidelines for clinical interpretation. In patients with unstable renal function, e.g. those with acute kidney injury, the eGFR may not accurately reflect actual GFR. Performed By: #### BMP #### [facility] [address] [facility] [phone] CONSULT PROG Observed: 12/22/2017 Status: COMPLETED Source: [facility] 10:44 PM CLINIC OTHER CAMPUS REPOSITORY HNO ID: [id number] Author: Sylvia Mcfarland Service: Neurology Author Type: Physician Type: Consult Progress Note Filed: 12/23/2017 10:27 PM Note Text: NEUROLOGY CONSULT PROGRESS NOTE SERVICE DATE: 12/22/2017 Current Attending Provider: Eugenia Monet) Rtuhie Subjective Interval History: Today, Sherita is improved. Less dyskinesia and tremors after medication adjustment improving ,more functional and is feeding himself with no difficulty No current facility-administered medications on file prior to encounter. Current Outpatient Prescriptions on File Prior to Encounter: carboxymethylcellulose sodium (REFRESH LIQUIGEL) 1 % dlgl Use 1 Drop in both eyes four times daily. carbidopa-levodopa (SINEMET) 25-100 mg per tablet Take 1.5 tablets by mouth three times daily. amantadine HCl (SYMMETREL) 100 mg capsule Take 1 capsule by mouth twice daily. QUEtiapine (SEROQUEL) 50 mg tablet Take 1 tablet by mouth twice daily. cholecalciferol (VITAMIN D) 1,000 unit tab tablet Take 1,000 Units by mouth once daily. Donepezil 23 mg tab Take 1 tablet by mouth daily at bedtime. Current Facility-Administered Medications: traZODone 25 mg tab(s) (DESYREL) 25 mg ORAL HS PRN Everardo Cheney 25 mg at 12/22/172101 clonazePAM 0.5 mg tab(s) (KlonoPIN) 0.5 mg ORAL BID Juve Schultz MD 0.5 mg at 12/22/172102 carbidopa-levodopa 25-100 mg 1.5 tablet (SINEMET 25-100) 1.5 tablet ORAL QID Sylvia Mcfarland 1.5 tablet at 12/22/172101 carboxymethylcellulose sodium 1 Drop (CELLUVISC) 1 Drop BOTH EYES QID Corona Hollingsworthayaalissa 1 Drop at 12/22/172100 donepezil (ARICEPT) tab(s) 22.5 mg 22.5 mg ORAL AT BEDTIME [facility] 22.5 mg at 12/22/172100 cyanocobalamin 1,000 mcg injection 1,000 mcg INTRAMUSCULAR q 4 WEEKS [facility] 1,000 mcg at 12/20/17 1016 cholecalciferol 1,000 Units tab(s) (VITAMIN D3) 1,000 Units ORAL DAILY [facility] 1,000 Units at 12/22/17 0843 Objective Physical Examination: Neurological: ? Mental Status:awake and oriented ,to person ,knows his name and age Cranial Nerves: ? CN intact ? Motor Exam: right hand tremors resting more than action tremors ? Muscle Tone: Cog wheel ? Strength today in the bilateral extremities is improved ? Reflexes: Right Left Bicep 2/ 2/4 Tricep / 2/4 BrRad 2/4 2/4 Knee 2/4 2/4 Ankle 2/ 2/4 ? Sensation: Intact to proprioception, light touch, vibratory sense, pin prick and stereognosis. ? Coordination: Finger-to- nose-finger intact bilaterally and Ddbf-ay-[id number] intact bilaterally. ? Gait: Patient's gait is normal, can heel and toe walk and can tandem walk New Labs: WBC (k/uL) Date Value 12/19/2017 6.46 12/18/2017 7.48 12/17/2017 13.73 RBC (m/uL) Date Value 12/19/2017 4.19 12/18/2017 4.06 12/17/2017 4.29 Platelet Count (k/uL) Date Value 12/19/2017 194 12/18/2017 192 12/17/2017 224 BUN (mg/dL) Date Value 12/22/2017 13 12/21/2017 15 12/20/2017 12 Creatinine (mg/dL) Date Value 12/22/2017 0.64 12/21/2017 0.70 12/20/2017 0.57 CBC, Coags, BMP, Mg, Phos Recent Labs 12/22/17 0526 12/21/17 0531 12/20/17 0438 NA 135* 134* 134* K 3.5* 3.9 3.9 CHLOR 96* 95* 97 CO2 32* 32* 29 GLUC 87 87 94 CA 8.9 9.2 8.7 Liver Function, Amylase, AND Lipase BEM Reading: DATA: Diagnostic tests reviewed for today's visit: Most recent labs and imaging results. 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 That is hard to hold Clonazepam as ordered See orders for sinemet and clonazepam Resolved Problems: Delirium POA: Yes SIGNATURE: Sylvia Mcfarland MD PATIENT NAME: Sherita Jurado DATE: December 22, 2017 TIME: 10:44 PM PAGER/CONTAC PROGRESS Observed: 12/22/2017 Status: COMPLETED Source: [facility] 3:11 PM CLINIC OTHER CAMPUS REPOSITORY O ID: [id number] Author: Eugenia Monet) Ruthie Service: Hospital Medicine Author Type: Physician Type: Progress Notes Filed: 12/22/2017 3:14 PM Note Text: SERVICE DATE: 12/22/2017 SERVICE TIME: 3:11 PM HOSPITAL MEDICINE PROGRESS NOTE NIGHT AND WEEKEND COVERAGE: Nights: Please contact pager [phone]. Reason for Admission/Observation: Wandering from skilled nursing and unable to be cared for there HOSPITAL DAY ZERO: 12/17/2017 Presentation: 72-year-old male with Parkinson's disease and schizophrenia who wandered from his skilled nursing and was taken to [facility] for medical clearance after being out PE for over 10 hours He was cleared medically sent to the skilled nursing but sent back to the emergency department because a skilled nursing since they could not stop him from wandering, he is progressively falling and weak and he is unable to eat because of tremor from his Parkinson's disease. Consultants: Dr. Mcfarland neurology Disposition: Extended Care Facility SUBJECTIVE Interval HPI:No chest pain or shortness of breath. Continued improvement after medication changes made. Waiting precertification for rehab OBJECTIVE Reviewed lines, drains, AND airways. Need to be continued . BP 133/80 Pulse 76 Temp 36.5 ?C (97.7 ?F) (Oral) Resp 18 Ht 177.8 cm (5' 10) Wt 75.4 kg (166 lb 3.2 oz) SpO2 98% BMI 23.85 kg/m? GENERAL: Alert, no distress, cooperative NECK: No Jugulovenous distention LUNGS: Clear respiratory distress -No CARDIAC: RRR without murmur, rub, or gallop ABDOMEN: Abdomen soft, non-tender, BS normal, No masses or organomegaly EXTREMITIES:no edema No cords - he has multiple bruises over his lower legs of various stages of healing consistent with frequent falls NEURO: Grossly motor function, and cranial nerves with mild tremor DATA: Diagnostic tests reviewed for today's visit: Most recent labs Overview was reviewed. Pulse ox CARE COORDINATION: No Patient Care Coordination Note on file. ASSESSMENT AND PLAN Assessment AND Plan, all Hosp Problems Active Hospital Problems as of 12/22/2017 Noted - Resolved Hospital * (Principal)Confusion 12/17/2017 - Present Current Assessment AND Plan Assessment: this is clearing and he appears to be improving with medication changes. Patient eating extremely well and completing his diet PLAN: awaiting precertification for snf facility for rehabilitation for physical debility Alteration in self-care ability 12/18/2017 - Present Current Assessment AND Plan Assessment: The patient had been functioning in a skilled nursing and is now weak and falling and unable to feed himself and has begun wandering off and getting lost PLAN: PT OT and neurology evaluations with plans for snf home placement at least temporarily Physical debility 12/18/2017 - Present Current Assessment AND Plan Assessment: Apparently falling and weak which are new along with his increased confusion making unmanageable and non-locked facility PLAN: PT recommend snf facility Schizophrenia (HCC) 09/07/2017 - Present Current Assessment AND Plan Assessment: Problem is stable with current regimen. PLAN: Continue current regimen Severe protein-calorie malnutrition (HCC) 09/04/2017 - Present Current Assessment AND Plan Assessment: patient eating everything on his tray every time I've been in the room PLAN: continue oral supplements along with diet Parkinsonism (HCC) 09/05/2017 - Present Current Assessment AND Plan Assessment: tremor much improved with medication changes PLAN: continue to monitor Medication and Non-Pharmacologic VTE Prophylaxis/Anticoagulants 12/20/17 1215 activity - mobilize patient (mo,oh) 12/17/17 223 pneumatic compression stockings (mo,oh) 12/17/172229 activity - mobilize patient (mo,ma) VTE Prophylaxis: VTE prophylaxis appropriate Plan of care discussed with: Patient and RN SIGNATURE: Eugenia Rai MD PATIENT NAME: Sherita Jurado DATE: December 22, 2017 TIME: 3:11 PM PAGER/CONTACT #: [phone] NUTRITION Observed: 12/22/2017 Status: COMPLETED Source: [facility] 12:09 PM CLINIC OTHER CAMPUS REPOSITORY O ID: [id number] Author: Isha Jefferson) Althea Service: Nutrition Therapy Author Type: Registered Dietitian Type: Nutrition Filed: 12/22/2017 12:12 PM Note Text: NUTRITION THERAPY PROGRESS NOTE SERVICE DATE: 12/22/2017 SERVICE TIME: 829 RECOMMENDED DIAGNOSIS: SEVERE PROTEIN-CALORIE MALNUTRITION per Registered Dietitian on 12/19 NUTRITION CARE PLAN Intervention: Continue diet and oral supplement Intake: 75-100%- meeting estimated nutritional needs Continue EHP supplements (160 kcals, 16 gm protein per supplement) Will follow up again within 4 days or as consulted Monitor and Evaluation: Goal: Meet >75% of estimated needs Discharge Nutrition Recommendations: Diet: Dental soft Energy dense/high protein commercial supplement shake as per patient preference. Interval History: During visit at breakfast time, patient reported he just wasn't hungry today. Prior 3 days all meals have been 75-100%. RN endorsed typically a very good eater Current Diet Order DIET FOOD CONSISTENCY CONTROLLED Order Specific Question: Food Consistency Answer: DENTAL SOFT There are no questions and answers to display. Supplement 1 Frequency: TWICE DAILY WITH MEALS Supplement 2 Frequency: BREAKFAST Supplement 1: ENSURE HIGH PROTEIN CHOCOLATE Supplement 2: ENSURE HIGH PROTEIN VANILLA Height: 177.8 cm (5' 10) Admission Weight: 78.2 kg (172 lb 8 oz) Current Weight: 75.4 kg (166 lb 3.2 oz) Body mass index is 23.85 kg/m?. normal Recent Labs 12/22/17 0526 GLUC 87 BUN 13 CREAT 0.64* NA 135* K 3.5* CHLOR 96* CO2 32* Pressure Injury 12/17/17 2300 Coccyx (Active) Stage Injury 1 12/22/2017 10:00 AM Leather Stitcher Related Pressure Injury No 12/21/2017 8:59 PM Dressing Status None: Open to Air 12/22/2017 10:00 AM Drainage Description None 12/22/2017 10:00 AM Drainage Amount None 12/22/2017 10:00 AM Odor No 12/22/2017 10:00 AM Wound Surface Color [place] 12/22/2017 10:00 AM Surrounding Skin Intact 12/21/2017 8:59 PM Length in Cm - Weekly 4 Cm 12/18/2017 12:00 AM Width in Cm - Weekly 3 Cm 12/18/2017 12:00 AM Depth in Cm - Weekly 0 Cm 12/18/2017 12:00 AM Number of days: 4 MNT Billing Type: Re-assess/15 min 1 unit SIGNATURE: Isha Oh RD PATIENT NAME: Sherita Juardo DATE: December 22, 2017 TIME: 12:09 PM PLAN OF CARE Observed: 12/22/2017 Status: COMPLETED Source: [facility] 11:30 AM CLINIC OTHER CAMPUS REPOSITORY HNO ID: [id number] Author: Aracelis (Rn) Andres, RN Service: Case Management Author Type: Registered Nurse Type: Plan of Care Filed: 12/22/2017 2:57 PM Note Text: MULTIDISCIPLINARY ROUNDS SERVICE DATE: 12/22/2017 ADMISSION DATE: 12/17/2017 SERVICE TIME: 11:30 AM ANTICIPATED D/C DATE: TBD Problem List: ACTIVE PROBLEM LIST B12 Deficiency Trouble Swallowing Severe Protein-Calorie Malnutrition (Hcc) Urinary Retention Parkinsonism (Hcc) Schizophrenia (Hcc) Extrapyramidal Reaction Mild Protein-Calorie Malnutrition (Hcc) Confusion Alteration in Self-Care Ability Physical Debility Attendees Present at Rounds: Loading Dock Helper: Aracelis Campos Provider: Dr. Rai Needs Discussed on Rounds: Discharge Needs Anticipated [facility]charge [facility]position[facility] Last Vitals: BP 133/80 Pulse 76 Temp (Src) 97.7 (Oral) Resp 18 Ht 5' 10 (1.78m) Wt 166 lb 3.2 oz (75.4kg) SpO2 98% BMI 23.85 kg/(m2). EMR reviewed. [facility] can accept and is working on obtaining pre-cert. Updated notes sent. CM assigned will continue to follow. Nursing: Mobility Intervention(s) Plan: Advance Mobility;Encourage Patient/Family to Participate in Care;Pain Management Mobility Patient/Family Goals: Demonstrates ability to complete transfers with least level of assist. Mobility Goal Target Achievement Date: 12/23/17 DOCUMENTED BY: Aracelis Campos RN PATIENT NAME: Sherita Jurado DATE: December 22, 2017 TIME: 2:56 PM CSN: [id number] THERAPY NT Observed: 12/22/2017 Status: COMPLETED Source: [facility] 11:02 AM CLINIC OTHER CAMPUS REPOSITORY [facility] ID: [id number] Author: Desi (Pt) Neeta Service: Physical Therapy Author Type: Physical Therapist Type: Therapy (PT/OT/Speech/Resp) Filed: 12/22/2017 11:09 AM Note Text: Physical Therapy Treatment SERVICE DATE: 12/22/2017 SERVICE TIME: 941 to 1005 ROOM: [place] [address] Recommended Discharge Disposition: Subacute/SNF Recommended Discharge Disposition Comments: Pt with decreased balance and safety awareness with LOB during gait and is [place] high falls risk indicating a need for continued PT post acute stay. Justification For Post Acute Needs: Good premorbid functional status;Good sitting tolerance;Willing to participate;May not tolerate higher intensity programing;Anticipate that patient will require daily (5x/wk) skilled therapy in a post-acute facility setting at the time of acute hospital discharge Anticipated Discharge Needs: Physical Assist at Home;Supervision at Home;Equipment Physical Assist at Home for: Cleaning;Meals;Laundry;Medication Management;Stairs;Safety;Self Care;Shopping;Transportation Supervision at Home due to: Impaired cognition Recommended Discharge Equipment: (cane or wheeled walker, least restrictive) PT Recommendations to Nursing: Ambulate with device;To bathroom;In halls;Transfer to/from chair;OOB for Meals;Sit at edge of bed;With assist of 1 person Device: (least restrictive device as needed) PT 6 Clicks Score: 20 Precautions/Activity Restrictions: Bed/Chair Alarm;Fall Risk;Lines/Tubes/Drains ASSESSMENT : Patient is able to progress ambulation, however requiring AD and min to CGA throughout with increased Unsteadiness and shakiness this session. Ambulation attempted without AD but deemed Unsafe per PT judgement due to unsteadiness, therefore walker used thought. Pt with noted flat affect and soft spoken throughout session, however at end of session reports It feels good to move around. Pt continues to requires skilled PT to address balance deficits for increased safety and independence due to history of falls. Patient Disposition at Start of Session: OOB in Chair;Chair Alarm Patient Disposition at End of Session: OOB in Chair;Chair Alarm (belongings in reach) Tolerated Full Session Physical Therapy Problem List: Cognitive Deficit;Safety Deficits;Balance Impaired Patient /Caregiver Goals: (not stated) Goals for Plan of Care: Able to perform HEP with: Independent Transfer sit to/from stand with: Supervision (LRAD if needed) Ambulate with: Supervision Distance: 150-200 Device: (LRAD if needed) Goal: No more than supervision to maintain dynamic standing balance to reduce risk of falls Progress Toward Goals: Progressing as expected Rehab Potential: Good PLAN: Treatment Frequency (times per week): 3 Current admission Treatment Interventions: Education;Joint Mobility;Strengthening;Functional Mobility Training;Balance Training;Neuromuscular Re-education Plan of Care developed with: Patient (CM and physician notified) TREATMENT INTERVENTIONS: Therapy Diagnosis: Unsteadiness on feet Interventions Provided: Therapeutic Exercise (12824);Gait Training (78994) Therapeutic Exercise (48415) Treatment Minutes: 11 1 unit Skilled Intervention(s): Instruction in therapeutic exercise Pt completes the following seated therex bilaterally x 20 reps: Alternating marches, LAQ, heel slides, isometric hip ADD, manually resisted hip ABD Sit to stand x 5 repetitions Verbal, visual and tactile cues provided as needed for technique and control. Gait Training (58981) Treatment Minutes: 12 1 unit Skilled Intervention(s): Instruction in sit to stand technique with proper hand placement and body positioning at edge of bed/chair, Instruction in stand to sit technique with LE's touching chair/bed and reaching back for surface, reinforcement for directional change Instruction in sequencing, gait pattern, Instruction in correction of gait deviations, safety with directional change, safe pace Instruction in use of equipment, cues for sequence and pattern Demonstration provided for proper use of walker Total Timed Code Treatment Minutes: 23 Total Treatment Time (minutes): 23 SUBJECTIVE: Current Hospital Course: Chart reviewed and no significant medical updates relevant to therapy were noted Reason for Physical Therapy Consult : New functional deficit not expected to spontaneously improve Relevant Past Medical History: Patient presents to ED on 12/17/17 with nurse from nursing facility where patient lives with a chief complaint of confusion. Patient was found wandering by the police department. PMH: Schizophrenia, Parkinson's, obesity, falls, diziness, palpitations Patient Report: Pt agreeable to PT, ok per nursing to treat. Pt states, I feel anxious about not knowing what's going on. Home Environment Patient Lives With: Facility Care ([facility]) Assistance Available: 24 Hour Entry To Home: No Stairs Number Of Stairs To Bed/Bath: 0 (on ground floor) Tub/Shower Type: tub/shower Laundry: same level Equipment Owned: Hand Held Shower (possible shower chair) Prior Functional Level: History of Falls;Required Assistance Assistance Required With: Meals;Medication Management;Transportation;Shopping Prior Functional Level Comments: Per pt (pt questionable historian): No use of AD, indep ADLs, cleaning/laundry, facility provides meals and RN's provide daily medications, enjoys group outings/picnics OBJECTIVE: Mini Cog Score: 2 (12/18/17 1416) CURRENT FUNCTIONAL STATUS: Current Functional Mobility Assist Level Additional Information Rolling Supine to Sit Sit to Supine Scooting Stand By Assistance Sit to Stand Contact Guard Assistance X 7 trials Stand to Sit Contact Guard Assistance Bed to Chair Toilet/Commode Gait Minimal Assistance Gait Device: None;Wheeled Walker Gait Distance (feet): 1 x 34', 1 x 90', 1 x 160' Unsteady with directional changes, tremors throughout affecting balance Stairs Curb Step Car Transfer General Gait Deviations: Lateral sway increased;Narrow Base of Support;Loss of Balance Gait belt donned for OOB activity Balance: Static Sitting;Dynamic Sitting;Static Standing;Dynamic Standing Static Sitting Balance: Independent Dynamic Sitting Balance: Independent Static Standing Balance: Stand By Assistance Dynamic Standing Balance: Contact Guard Assistance Please see discipline specific clinical documentation flowsheet for complete details for this therapy evaluation/treatment. SIGNATURE: Desi Santacruz PT PATIENT NAME: Sherita Jurado DATE: December 22, 2017 TIME: 11:02 AM THERAPY NT Observed: 12/22/2017 Status: COMPLETED Source: [facility] 9:54 AM CLINIC OTHER CAMPUS REPOSITORY HNO ID: [id number] Author: Amanda Shepherd/Hay Varner Service: Occupational Therapy Author Type: Occupational Therapist Type: Therapy (PT/OT/Speech/Resp) Filed: 12/22/2017 10:03 AM Note Text: Occupational Therapy Treatment SERVICE DATE: 12/22/2017 SERVICE TIME: 911 to 941 ROOM: [id number] Recommended Discharge Disposition: Subacute/SNF Recommended Discharge Disposition Comments: Pt is functioning below baseline, demonstrating increased need for assistance for functional mobility and ADLs, indicating pt requires continued skilled OT services post acute stay to address functional deficits and increase safety, ease and independence during ADLs, IADLs, leisure and functional mobility for pt's optimal safety and highest level of functioning. Justification For Post Acute Needs: Good sitting tolerance;Living the community premorbidly;Medically complex;Willing to participate;Anticipate that patient will require daily (5x/wk) skilled therapy in a post-acute facility setting at the time of acute hospital discharge Anticipated Discharge Needs: Physical Assist at Home;Supervision at Home;Equipment Physical Assist at Home for: Cleaning;Meals;Laundry;Medication Management;Stairs;Safety;Self Care;Shopping;Transportation Supervision at Home due to: Impaired cognition Recommended Discharge Equipment: Grab Bars-Toilet;Grab Bars-Shower;Shower Chair OT Recommendations to Nursing: To Bathroom for ADL?s /and or Toileting;ADL?s in chair;OOB for meals;Edge of bed ADL?s;Transfer to Chair;With assist of 1 person Equipment: Wheeled Walker (gait belt; bed/chair alarms) OT 6 Clicks Score: 19 Precautions/Activity Restrictions: Bed/Chair Alarm;Fall Risk;Lines/Tubes/Drains ASSESSMENT: Patient demonstrates need for increased assistance for bed mobility, sit <> stand transfers, ADLs and functional mobility in room this date. Noted LOB with standing grooming tasks at sink and unsteadiness with functional mobility, increasing pt's risk of falls. Discharge recommendation changed to SNF as patient demonstrates need for continued skilled OT services post acute stay to address functional deficits, as pt is functioning well below baseline and not safe to return home at current level of functioning. Patient Disposition at Start of Session: Supine in Bed;Call Blackmon in Reach;SCDs;Bed Alarm Patient Disposition at End of Session: OOB in Chair;Call Blackmon in Reach;Chair Alarm Tolerated Full Session Occupational Therapy Problem List: Cognitive Deficit;Education Deficit;Safety Deficits;Impaired Self Care;Functional Mobility Impairment;Balance Impaired;Impaired Fine Motor Skills Patient /Caregiver Goals: Go to Rehab Goals for Plan of Care: Able to perform HEP with: Verbal Cues Only (for functional BUE strengthening) Grooming with: Supervision (at sink) Lower Body Dressing with: Supervision Toilet Hygiene with: Supervision Chair Transfer with: Supervision Toilet Transfer with: Supervision Increased Awareness of Cognitive Impairments as Related to ADL's/IADL's: Demonstrated Progress Toward Goals: Progressing slower than expected due to fatigue Rehab Potential: Good PLAN: Treatment Frequency (times per week): 3 Current admission Treatment Interventions: Education;Self Care / Home Management;Strengthening;Functional Mobility Training;Balance Training;Cognitive Training Plan of Care developed with: Patient TREATMENT INTERVENTIONS: Therapy Diagnosis: Decreased activities of daily living (ADL) Interventions Provided: Therapeutic Activity (15780);Self Custodial Management (52334) Therapeutic Activity (52860) Treatment Minutes: 10 1 unit Skilled Intervention(s): Instructed and provided with verbal, visual, tactile cues and facilitated pt in supine to sit pushing with upper extremities to sit up with log roll technique. Instructed and provided with verbal, visual cues in effective use of BUEs to scoot to EOB. Instructed and provided with verbal, visual cues and facilitated pt in sit to stand technique with proper hand placement and body positioning at edge of bed. Pt instructed and verbally cued in effective use of BUEs and proper posture upon standing at walker level. Pt instructed and verbally cued in proper posture, effective use of BUEs, slowing pace of movement, keeping walker wheels on floor at all times and staying within frame of walker during functional mobility in room.. Instructed, verbally cued and facilitated in stand to sit technique with lower extremities touching chair and reaching back for surface. Self Custodial Management (65074) Treatment Minutes: 17 1 unit Skilled Intervention(s): Pt educated in role of OT. Pt educated in importance of out of bed activity (active participation in daily care, sitting in chair for meals and throughout day if asymptomatic) for rehabilitation and to prevent functional decline and other negative effects of immobility. Pt educated and cued in assessing self for dizziness/lightheadedness upon changes in position and to allow time for body to accommodate to changes in position. Provided instruction and provided with verbal, visual cues and facilitation to don/doff socks while seated EOB. Provided instruction and provided with verbal cues and facilitation for safe technique for upper/lower body bathing while seated in chair. Provided instruction and provided with verbal, visual cue and facilitation for effective use of shower cap, while seated in chair. Pt instructed and verbally cued on hand placement on sink counter for balance support and proper walker placement during standing ADL tasks. Pt educated in importance of use of call button for all needs and to call and wait for nursing/therapist assistance for all out of bed/chair activity; teach back method utilized. Education in OT POC and discharge recommendation with rationale. RN and CM notified of pt status and recommendations. Total Timed Code Treatment Minutes: 27 Total Treatment Time (minutes): 30 (-3 min to gather supplies) FUNCTIONAL G CODE: OT 6 Clicks Score: 19 (12/22/17 0912) $ Self Care Current Status (G8987): CJ (12/18/17 1416) $ Self Care Goal Status (G8988): CH (12/18/17 141) Based on clinical assessment and the score on the 6 Clicks Functional Assessment Tool, the G code and corresponding severity modifiers are documented above. SUBJECTIVE: Current Hospital Course: Chart reviewed and no significant medical updates relevant to therapy were noted Reason for Occupational Therapy Consult: Patient presents to ED on 12/17/17 with nurse from nursing facility where patient lives with a chief complaint of confusion. Patient was found wandering by the police department. Referred to OT for New functional deficit not expected to spontaneously improve. Relevant Past Medical History: Schizophrenia, Parkison's, obesity, falls, diziness, palpitations Patient Report: I just feel exhausted. Home Environment Patient Lives With: Facility Care ([facility]) Assistance Available: 24 Hour Entry To Home: No Stairs Number Of Stairs To Bed/Bath: 0 (on ground floor) Tub/Shower Type: tub/shower Laundry: same level Equipment Owned: Hand Held Shower (possible shower chair) Prior Functional Level: History of Falls;Required Assistance Assistance Required With: Meals;Medication Management;Transportation;Shopping Prior Functional Level Comments: Per pt (pt questionable historian): No use of AD, indep ADLs, cleaning/laundry, facility provides meals and RN's provide daily medications, enjoys group outings/picnics OBJECTIVE: Communication Deficits: (hypotonia ) Orientation Deficits: (stated incorrect date day) Responsiveness: Alert;Awake Follows Commands: 1-step Commands;2-step Commands;Cueing Needed Cueing to Follow Commands: Minimum Mini Cog Score: 2 (12/18/17 1416) Psychosocial Deficit: hx of Schizophrenia Vision Deficits: Wears glasses CURRENT FUNCTIONAL STATUS: Current Activities of Daily Living Assist Level Feeding Independent (per observation for finger foods; anticipate set up) Grooming Contact Guard Assistance (wash/dry face, comb hair, use mouth wash at sink) Bathing Upper Body Minimal Assistance (seated in chair for thoroughness) Bathing Lower Body Moderate Assistance (use of bath wipe, seated) Dressing Upper Body Supervision (to don gown seated EOB) Dressing Lower Body Contact Guard Assistance (to don/doff socks at EOB) Toileting Contact Guard Assistance (per clinical judgment for standing portion of task) Functional Mobility Assist Level Rolling Supine to Sit Minimal Assistance (HOB flat; no use bed rails; to R) Sit to Supine Scooting Stand By Assistance (to EOB) Sit to Stand Contact Guard Assistance (from bed to walker level) 2 trials Stand to Sit Contact Guard Assistance (walker level to bedside chair, bed) Bed to Chair Toilet/Commode Functional Mobility Minimal Assistance (bed>sink>window>sink>chair) Wheeled Walker (per pt request) -Gait belt used during functional mobility and transfers for optimal safety Balance: Static Sitting;Dynamic Sitting;Static Standing;Dynamic Standing Static Sitting Balance: Independent Dynamic Sitting Balance: Contact Guard Assistance (to SBA) Static Standing Balance: Contact Guard Assistance Dynamic Standing Balance: Contact Guard Assistance (to Minimal Assistance (2 LOB at sink)) Activity Tolerance: Standing Activity (c/o exhaustion) Standing Activity: grooming at sink; functional mobility in room Please see discipline specific clinical documentation flowsheet for complete details for this therapy evaluation/treatment. SIGNATURE: Amanda Varner OT/Praneeth PATIENT NAME: Sherita Jurado DATE: December 22, 2017 TIME: 9:54 AM BASIC METABOLIC PANL Collected: 12/22/2017 Status: F Source: [facility] 5:26 AM CLINIC OTHER CAMPUS REPOSITORY TYPE CODE TESTS RESULT OUT OF REFERENCE UNITS RANGE LAB GLU 74-99 mg/dL Glucose 87 Result Comment: The [place] Diabetes [employer] (ADA) provides guidance for cutoff values for fasting glucose and random glucose. The ADA defines fasting as no caloric intake for at least 8 hours. Fas ting plasma glucose results between 100 to 125 mg/dL indicate increased risk for diabetes (prediabetes). Fasting plasma glucose results greater than or equal to 126 mg/dL meet the criteria for diagnosis of diabetes. In the absence of unequivocal hyperglycemia, results should be confirmed by repeat testing. In a patient with classic symptoms of hyperglycemia or hyperglycemic crisis, random plasma glucose results greater than or equal to 200 mg/dL meet the criteria for diagnosis of diabetes. Reference: Standards of Medical Care in Diabetes 2016, [place] [employer]. Diabetes Care. 2016.39(Suppl 1). LAB BUN 9-24 mg/dL BUN 13 LAB CRET 0.73-1.22 mg/dL Low Creatinine 0.64 LAB NA 136-144 mmol/L Low Sodium 135 LAB K 3.7-5.1 mmol/L Low Potassium 3.5 LAB CL 97-105 mmol/L Low Chloride 96 LAB CO2 22-30 mmol/L CO2 High 32 LAB AGAP 9-18 mmol/L Low Anion Gap 7 LAB CA 8.5-10.2 mg/dL Calcium, Total 8.9 LAB GFRAA eGFR- Amer. >60 LAB GFRNAA . eGFR-All Other Races >60 Result Comment: eGFR (Estimated GFR) Units of measure: mL/min/1.73 meters squared eGFR is derived from the reexpressed MDRD Study equation using the following parameters: serum creatinine, age, gender and race. The creatinine assay has been calibrated to be traceable to IDMS. An eGFR <60 mL/min/1.73m2 for >3 months is consistent with chronic kidney disease. Refer to KDOQI guidelines for clinical interpretation. In patients with unstable renal function, e.g. those with acute kidney injury, the eGFR may not accurately reflect actual GFR. Performed By: #### BMP #### [facility] [address] [place] [address] PROGRESS Observed: 12/21/2017 Status: COMPLETED Source: [facility] 4:30 PM CLINIC OTHER CAMPUS REPOSITORY [facility] ID: [id number] Author: Juve Schultz MD Service: Hospital Medicine Author Type: Physician Type: Progress Notes Filed: 12/21/2017 4:30 PM Note Text: SERVICE DATE: 12/21/2017 SERVICE TIME: 4:30 PM HOSPITAL MEDICINE PROGRESS NOTE NIGHT AND WEEKEND COVERAGE: Nights: Please contact pager [phone]. Reason for Admission/Observation: Wandering from skilled nursing and unable to be cared for there HOSPITAL DAY ZERO: 12/17/2017 Presentation: 72-year-old male with Parkinson's disease and schizophrenia who wandered from his skilled nursing and was taken to [facility] for medical clearance after being out PE for over 10 hours He was cleared medically sent to the skilled nursing but sent back to the emergency department because a skilled nursing since they could not stop him from wandering, he is progressively falling and weak and he is unable to eat because of tremor from his Parkinson's disease. Consultants: Dr. Mcfarland neurology Disposition: Extended Care Facility SUBJECTIVE Interval HPI:No chest pain or shortness of breath. Continued improvement after medication changes made. Waiting precertification. OBJECTIVE Reviewed lines, drains, AND airways. Need to be continued . BP 142/67 Pulse 82 Temp 36.6 ?C (97.9 ?F) (Oral) Resp 18 Ht 177.8 cm (5' 10) Wt 75.4 kg (166 lb 3.2 oz) SpO2 97% BMI 23.85 kg/m? GENERAL: Alert, no distress, cooperative NECK: No Jugulovenous distention LUNGS: Clear respiratory distress -No CARDIAC: RRR without murmur, rub, or gallop ABDOMEN: Abdomen soft, non-tender, BS normal, No masses or organomegaly EXTREMITIES:no edema No cords - he has multiple bruises over his lower legs of various stages of healing consistent with frequent falls NEURO: Grossly motor function, and cranial nerves with mild tremor DATA: Diagnostic tests reviewed for today's visit: Most recent labs Overview was reviewed. Pulse ox CARE COORDINATION: No Patient Care Coordination Note on file. ASSESSMENT AND PLAN Overview, Assessment AND Plan, all Hosp Problems Active Hospital Problems as of 12/21/2017 Noted - Resolved A * (Principal)Confusion 12/17/2017 - Present Overview Current Assessment AND Plan Assessment: this is clearing and he appears to be improving with medication changes. patient eating extremely well and completing his diet PLAN: awaiting precertification for snf facility for rehabilitation for physical debility B Alteration in self-care ability 12/18/2017 - Present Current Assessment AND Plan Assessment: The patient had been functioning in a skilled nursing and is now weak and falling and unable to feed himself and has begun wandering off and getting lost PLAN: PT OT and neurology evaluations with plans for snf home placement at least temporarily C Physical debility 12/18/2017 - Present Current Assessment AND Plan Assessment: Apparently falling and weak which are new along with his increased confusion making unmanageable and non-locked facility PLAN: PT recommend snf facility D Schizophrenia ([facility]) 09/07/2017 - Present Overview Continue Quetiapine 50mg BID Current Assessment AND Plan Assessment: Problem is stable with current regimen. PLAN: Continue current regimen H Severe protein-calorie malnutrition ([facility]) 09/04/2017 - Present Current Assessment AND Plan Assessment: patient eating everything on his tray every time I've been in the room PLAN: continue oral supplements along with diet M Parkinsonism ([facility]) 09/05/2017 - Present Overview Continue carbidopa/levodopa Will consult Neurology if any of his current medications need to be changed given this incident Current Assessment AND Plan Assessment: tremor much improved with medication changes PLAN: continue to monitor Medication and Non-Pharmacologic VTE Prophylaxis/Anticoagulants 12/20/17 1215 activity - [place]ize [place] ([place]) 12/17/17 2230 pneumatic compression stockings ([place] 12/17/17 2230 activity - [place]ize [place] ([place] VTE Prophylaxis: VTE prophylaxis appropriate Plan of care discussed with: Patient and RN SIGNATURE: Juve Schultz MD PATIENT NAME: Sherita Jurado DATE: December 21, 2017 TIME: 4:30 PM PAGER/CONTACT #: BASIC METABOLIC PANL Collected: 12/21/2017 Status: F Source: [facility] 5:31 AM CLINIC OTHER CAMPUS REPOSITORY TYPE CODE TESTS RESULT OUT OF REFERENCE UNITS RANGE LAB GLU 74-99 mg/dL Glucose 87 Result Comment: The [place] Diabetes Association (ADA) provides guidance for cutoff values for fasting glucose and random glucose. The ADA defines fasting as no caloric intake for at least 8 hours. Fas ting plasma glucose results between 100 to 125 mg/dL indicate increased risk for diabetes (prediabetes). Fasting plasma glucose results greater than or equal to 126 mg/dL meet the criteria for diagnosis of diabetes. In the absence of unequivocal hyperglycemia, results should be confirmed by repeat testing. In a patient with classic symptoms of hyperglycemia or hyperglycemic crisis, random plasma glucose results greater than or equal to 200 mg/dL meet the criteria for diagnosis of diabetes. Reference: Standards of Medical Care in Diabetes 2016, [place] [employer]. Diabetes Care. 2016.39(Suppl 1). LAB BUN 9-24 mg/dL BUN 15 LAB CRET 0.73-1.22 mg/dL Low Creatinine 0.70 LAB NA 136-144 mmol/L Low Sodium 134 LAB K 3.7-5.1 mmol/L Potassium 3.9 LAB CL 97-105 mmol/L Low Chloride 95 LAB CO2 22-30 mmol/L CO2 High 32 LAB AGAP 9-18 mmol/L Low Anion Gap 7 LAB CA 8.5-10.2 mg/dL Calcium, Total 9.2 LAB GFRAA eGFR- Amer. >60 LAB GFRNAA . eGFR-All Other Races >60 Result Comment: eGFR (Estimated GFR) Units of measure: mL/min/1.73 meters squared eGFR is derived from the reexpressed MDRD Study equation using the following parameters: serum creatinine, age, gender and race. The creatinine assay has been calibrated to be traceable to IDMS. An eGFR <60 mL/min/1.73m2 for >3 months is consistent with chronic kidney disease. Refer to KDOQI guidelines for clinical interpretation. In patients with unstable renal function, e.g. those with acute kidney injury, the eGFR may not accurately reflect actual GFR. Performed By: #### BMP #### [facility] [address] [place] [address] PROGRESS Observed: 12/20/2017 Status: COMPLETED Source: [facility] 12:27 PM CLINIC OTHER CAMPUS REPOSITORY O ID: [id number] Author: Juve Schultz MD Service: Hospital Medicine Author Type: Physician Type: Progress Notes Filed: 12/20/2017 12:27 PM Note Text: SERVICE DATE: 12/20/2017 SERVICE TIME: 12:27 PM HOSPITAL MEDICINE PROGRESS NOTE NIGHT AND WEEKEND COVERAGE: Nights: Please contact pager [phone]. Reason for Admission/Observation: Wandering from skilled nursing and unable to be cared for there HOSPITAL DAY ZERO: 12/17/2017 Presentation: 72-year-old male with Parkinson's disease and schizophrenia who wandered from his skilled nursing and was taken to [facility] for medical clearance after being out PE for over 10 hours He was cleared medically sent to the skilled nursing but sent back to the emergency department because a skilled nursing since they could not stop him from wandering, he is progressively falling and weak and he is unable to eat because of tremor from his Parkinson's disease. Consultants: Dr. Mcfarland neurology Disposition: Extended Care Facility SUBJECTIVE Interval HPI:No chest pain or shortness of breath. Continued improvement after medication changes made. Waiting precertification. OBJECTIVE Reviewed lines, drains, AND airways. Need to be continued . BP 138/89 Pulse 76 Temp 36.6 ?C (97.9 ?F) (Oral) Resp 18 Ht 177.8 cm (5' 10) Wt 75.4 kg (166 lb 3.2 oz) SpO2 95% BMI 23.85 kg/m? GENERAL: Alert, no distress, cooperative NECK: No Jugulovenous distention LUNGS: Clear respiratory distress -No CARDIAC: RRR without murmur, rub, or gallop ABDOMEN: Abdomen soft, non-tender, BS normal, No masses or organomegaly EXTREMITIES:no edema No cords - he has multiple bruises over his lower legs of various stages of healing consistent with frequent falls NEURO: Grossly motor function, and cranial nerves with marked tremor or proportion to his bradykinesia. He does not remember events that have happened recently and is very amiable but uninformative. DATA: Diagnostic tests reviewed for today's visit: Most recent labs Overview was reviewed. Pulse ox CARE COORDINATION: No Patient Care Coordination Note on file. ASSESSMENT AND PLAN Overview, Assessment AND Plan, all Hosp Problems Active Hospital Problems as of 12/20/2017 Noted - Resolved A * (Principal)Confusion 12/17/2017 - Present Overview Current Assessment AND Plan Assessment: this is clearing and he appears to be improving with medication changes. patient eating extremely well and completing his diet PLAN: awaiting precertification for snf facility for rehabilitation for physical debility B Alteration in self-care ability 12/18/2017 - Present Current Assessment AND Plan Assessment: The patient had been functioning in a skilled nursing and is now weak and falling and unable to feed himself and has begun wandering off and getting lost PLAN: PT OT and neurology evaluations with plans for snf home placement at least temporarily C Physical debility 12/18/2017 - Present Current Assessment AND Plan Assessment: Apparently falling and weak which are new along with his increased confusion making unmanageable and non-locked facility PLAN: PT recommend snf facility D Schizophrenia (HCC) 09/07/2017 - Present Overview Continue Quetiapine 50mg BID Current Assessment AND Plan Assessment: Problem is stable with current regimen. PLAN: Continue current regimen H Severe protein-calorie malnutrition (H[facility]) 09/04/2017 - Present Current Assessment AND Plan Assessment: patient eating everything on his tray every time I've been in the room PLAN: continue oral supplements along with diet M Parkinsonism ([facility]) 09/05/2017 - Present Overview Continue carbidopa/levodopa Will consult Neurology if any of his current medications need to be changed given this incident Current Assessment AND Plan Assessment: tremor much improved with medication changes PLAN: continue to monitor Medication and Non-Pharmacologic VTE Prophylaxis/Anticoagulants 12/20/17 1215 activity - mobilize [place]) 12/17/17 2230 pneumatic compression stockings ([place]) 12/17/17 223 activity - mobilize [place] ([place] VTE Prophylaxis: VTE prophylaxis appropriate Plan of care discussed with: Patient, Case Management and RN SIGNATURE: Juve Schultz MD PATIENT NAME: Sherita Jurado DATE: December 20, 2017 TIME: 12:27 PM PAGER/CONTACT #: BASIC METABOLIC PANL Collected: 12/20/2017 Status: F Source: [facility] 4:38 AM CLINIC OTHER CAMPUS REPOSITORY TYPE CODE TESTS RESULT OUT OF REFERENCE UNITS RANGE LAB GLU 74-99 mg/dL Glucose 94 Result Comment: The [place] Diabetes [employer] (ADA) provides guidance for cutoff values for fasting glucose and random glucose. The ADA defines fasting as no caloric intake for at least 8 hours. Fas ting plasma glucose results between 100 to 125 mg/dL indicate increased risk for diabetes (prediabetes). Fasting plasma glucose results greater than or equal to 126 mg/dL meet the criteria for diagnosis of diabetes. In the absence of unequivocal hyperglycemia, results should be confirmed by repeat testing. In a patient with classic symptoms of hyperglycemia or hyperglycemic crisis, random plasma glucose results greater than or equal to 200 mg/dL meet the criteria for diagnosis of diabetes. Reference: Standards of Medical Care in Diabetes 2016, [place] [employer]. Diabetes Care. 2016.39(Suppl 1). LAB BUN 9-24 mg/dL BUN 12 LAB CRET 0.73-1.22 mg/dL Creatinine Low 0.57 LAB NA 136-144 mmol/L Sodium Low 134 LAB K 3.7-5.1 mmol/L Potassium 3.9 LAB CL 97-105 mmol/L Chloride 97 LAB CO2 22-30 mmol/L CO2 29 LAB AGAP 9-18 mmol/L Anion Gap Low 8 LAB CA 8.5-10.2 mg/dL Calcium, Total 8.7 LAB GFRAA eGFR- Amer. >60 LAB GFRNAA . eGFR-All Other Races >60 Result Comment: eGFR (Estimated GFR) Units of measure: mL/min/1.73 meters squared eGFR is derived from the reexpressed MDRD Study equation using the following parameters: serum creatinine, age, gender and race. The creatinine assay has been calibrated to be traceable to IDMS. An eGFR <60 mL/min/1.73m2 for >3 months is consistent with chronic kidney disease. Refer to KDOQI guidelines for clinical interpretation. In patients with unstable renal function, e.g. those with acute kidney injury, the eGFR may not accurately reflect actual GFR. Performed By: #### BMP #### [facility] [address] [facility] [phone] NURSING PROG Observed: 12/19/2017 Status: COMPLETED Source: [facility] 10:27 PM CLINIC OTHER CAMPUS REPOSITORY O ID: [id number] Author: Josie SpencerRn) JOSE Hsu Service: (none) Author Type: Registered Nurse Type: Nursing Progress Note Filed: 12/20/2017 1:44 AM Note Text: Nursing Progress Note Patient Name: Sherita Jurado Patient [id number] Daily Note: 192: bedside SBAR report received from day shift RN. Patient is resting comfortably in bed, does not complain of any pain 0/10. Patient repositioned in bed. Will continue to monitor, bed alarm on and functioning. 3:Patient assessed and evening medications administered. Patients water cup refilled, patient does not have any complaints at this time. Will continue to monitor, bed alarm on and functioning. 2300: Patient alert and awake. No complaints of pain at this time, patient is comfortable in bed, bed alarm on and functioning, will continue to monitor 0130: Patient resting comfortably in bed. No complaints at this time. Repositioned in bed, bed alarm on and functioning, Will continue to monitor This note was completed by: Josie Hsu RN PROGRESS Observed: 12/19/2017 Status: COMPLETED Source: [facility] 5:05 PM CLINIC OTHER CAMPUS REPOSITORY [facility] ID: [id number] Author: Juve Schultz MD Service: Hospital Medicine Author Type: Physician Type: Progress Notes Filed: 12/19/2017 5:05 PM Note Text: SERVICE DATE: 12/19/2017 SERVICE TIME: 5:05 PM HOSPITAL MEDICINE PROGRESS NOTE NIGHT AND WEEKEND COVERAGE: Nights: Please contact pager [phone]. Reason for Admission/Observation: Wandering from skilled nursing and unable to be cared for there HOSPITAL DAY ZERO: 12/17/2017 Presentation: 72-year-old male with Parkinson's disease and schizophrenia who wandered from his skilled nursing and was taken to [facility] for medical clearance after being out PE for over 10 hours He was cleared medically sent to the skilled nursing but sent back to the emergency department because a skilled nursing since they could not stop him from wandering, he is progressively falling and weak and he is unable to eat because of tremor from his Parkinson's disease. Consultants: Dr. Mcfarland neurology Disposition: Extended Care Facility SUBJECTIVE Interval HPI:No chest pain or shortness of breath. The patient's being evaluated for a snf facility still and the physical therapist believes that he meets criteria for this. He does have multiple bruises of multiple ages showing how often he is following especially over his lower legs and the pressure and dry his coccyx from where he fell and could not regain his ability to get up. Medication adjustments and consult with neurology consultation. OBJECTIVE Reviewed lines, drains, AND airways. Need to be continued . BP 130/76 Pulse 60 Temp 36.5 ?C (97.7 ?F) (Oral) Resp 16 Ht 177.8 cm (5' 10) Wt 75.4 kg (166 lb 3.2 oz) SpO2 99% BMI 23.85 kg/m? GENERAL: Alert, no distress, cooperative NECK: No Jugulovenous distention LUNGS: Clear respiratory distress -No CARDIAC: RRR without murmur, rub, or gallop ABDOMEN: Abdomen soft, non-tender, BS normal, No masses or organomegaly EXTREMITIES:no edema No cords - he has multiple bruises over his lower legs of various stages of healing consistent with frequent falls NEURO: Grossly motor function, and cranial nerves with marked tremor or proportion to his bradykinesia. He does not remember events that have happened recently and is very amiable but uninformative. DATA: Diagnostic tests reviewed for today's visit: Most recent labs Overview was reviewed. Pulse ox CARE COORDINATION: No Patient Care Coordination Note on file. ASSESSMENT AND PLAN Overview, Assessment AND Plan, all Hosp Problems Active Hospital Problems as of 12/19/2017 Noted - Resolved A * (Principal)Confusion 12/17/2017 - Present Overview Unclear etiology Negative head CT Differential include side effect of carbidopa/levodopa Consult Neurology Check vitamin B12 Check TSH Doubt infection Check ammonia Negative tox screen B Alteration in self-care ability 12/18/2017 - Present Current Assessment AND Plan Assessment: The patient had been functioning in a skilled nursing and is now weak and falling and unable to feed himself and has begun wandering off and getting lost PLAN: PT OT and neurology evaluations with plans for snf home placement at least temporarily C Physical debility 12/18/2017 - Present Current Assessment AND Plan Assessment: Apparently falling and weak which are new along with his increased confusion making unmanageable and non-locked facility PLAN: PT and OT evaluation D Schizophrenia (HCC) 09/07/2017 - Present Overview Continue Quetiapine 50mg BID H Severe protein-calorie malnutrition (HCC) 09/04/2017 - Present M Parkinsonism (HCC) 09/05/2017 - Present Overview Continue carbidopa/levodopa Will consult Neurology if any of his current medications need to be changed given this incident Medication and Non-Pharmacologic VTE Prophylaxis/Anticoagulants 12/17/17 223 pneumatic compression stockings ([place] 12/17/17 223 activity - mobilize patient ([place]) VTE Prophylaxis: VTE prophylaxis appropriate Plan of care discussed with: Patient, Case Management and RN SIGNATURE: Juve Schultz MD PATIENT NAME: Sherita Jurado DATE: December 19, 2017 TIME: 5:05 PM PAGER/CONTACT #: NUTRITION Observed: 12/19/2017 Status: COMPLETED Source: [facility] 12:49 PM CLINIC OTHER CAMPUS REPOSITORY [facility] ID: [id number] Author: Nga Eagle Service: Nutrition Therapy Author Type: Registered Dietitian Type: Nutrition Filed: 12/19/2017 3:21 PM Note Text: NUTRITION THERAPY INITIAL ASSESSMENT SERVICE DATE: 12/19/2017 SERVICE TIME: 2:45 pm RECOMMENDED MALNUTRITION DIAGNOSIS: SEVERE PROTEIN-CALORIE MALNUTRITION In the context of Chronic Illness or Injury based on: Unintentional Weight Loss: >10% in 6 months Insufficient Energy Intake: Less than 75% energy intake compared to estimated needs for greater than or equal to 1 month NUTRITION CARE PLAN: Problem, Etiology and Signs/Symptoms: Suboptimal protein/energy intake related to chewing AND feeding difficulty as evidenced by poor dentition, missing dentures, shaking hands Intervention: Start oral supplement Change diet to Dental Soft (pt requests ground meats/soft foods) Monitor oral intake Will follow within 3 days or as consulted Monitor and Evaluation: Goal: Meet >75% of estimated needs Discharge Nutrition Recommendations: Diet: Dental soft diet Supplements: 3x daily nutrient/calorie dense oral supplements Per HPI: Mr. Jurado is a 72 year old male with history of parkinson's disease, presented with confusion. Patient lives in a group home. No family on presentation. As per group home staff, the patient left the group home yesterday for 10 hours. He was seen by police and was taken to [place] [facility]. He was sent from [facility] to group home, however, he was sent from group home to [place] for further evaluation for the confusion episode. Patient doesn't recall what happened yesterday. He doesn't know where he went and he doesn't know how he ended up here. Patient said he has no family in town. He denies any headache, dizziness, weakness. Denies chest pain, shortness of breath. No nausea, vomiting, abdominal pain or diarrhea. No fever, or chills. Current Diet Order Diet Regular Will change diet order to Dental soft per patient request Order nutrition supplements with meals Nutritional Intake Prior to Admission: <75% estimated energy needs over the past 5-6 month(s) GI symptoms: chewing problems Nutrition Abdominal Exam: and abdomen is soft ANTHROPOMETRICS Height: 177.8 cm (5' 10) Admission Weight: 78.2 kg (172 lb 8 oz) Current Weight: 75.4 kg (166 lb 3.2 oz) Body mass index is 23.85 kg/m?. normal Weight has decreased by 10 kg over 5-6 months representing 11.7 % weight change clinically significant Last Wt 12/17/17 : 75.4 kg (166 lb 3.2 oz) 12/17/17 : 77 kg (169 lb 12.8 oz) 12/16/17 : 78.5 kg (173 lb) 12/10/17 : 74.8 kg (165 lb) 11/12/17 : 78.1 kg (172 lb 3.2 oz) 10/16/17 : 78.9 kg (174 lb) 09/09/17 : 76.8 kg (169 lb 4.8 oz) 09/03/17 : 83.5 kg (184 lb) 08/25/17 : 83.5 kg (184 lb) 08/04/17 : 85.3 kg (188 lb) 07/24/17 : 85.4 kg (188 lb 3.2 oz) 02/06/17 : 93 kg (205 lb) 11/08/16 : 94.3 kg (208 lb) 11/30/15 : 97.1 kg (214 lb) 01/10/16 : 99.3 kg (219 lb) Dosing Weight: 75.4 kg Resting Metabolic Rate: 1510 Estimated kilocalorie needs: 5623-0466 kilocalories determined by 25-30 kcal/kg Estimated protein needs: 90-113 grams determined by 1.2-1.5 g/kg Dosing weight Estimated fluid needs: 4213-5786 milliliters based on 1 mL per kcal NUTRITION FOCUSED PHYSICAL EXAM: Subcutaneous Fat Loss Orbital Moderate Triceps Moderate Mid-axillary at the iliac crest Moderate Muscle Loss Locations: Temporalis Moderate Pectoralis Moderate Deltoids Moderate Interosseous Mild Latissimus dorsi, trapezius Unable to determine at this time Quadriceps Moderate Gastrocnemius Unable to determine at this time Potential micronutrient deficiency revealed in: Skin - dry and poor turgor Edema: No Ascites: No Assessment of Functional Status: Functional capacity is unrelated to nutrition status Temperature Max in 24 hours: Temp (24hrs), Av.8 ?C (98.2 ?F), Min:36.3 ?C (97.3 ?F), Max:37.2 ?C (99 ?F) BP 119/63 Pulse 63 Temp 36.3 ?C (97.3 ?F) (Oral) Resp 18 Ht 177.8 cm (5' 10) Wt 75.4 kg (166 lb 3.2 oz) SpO2 96% BMI 23.85 kg/m? Recent Labs 12/19/17 0403 12/17/17 1825 GLUC 92 < > 96 BUN 12 < > 20 CREAT 0.56* < > 0.62* NA 135* < > 135* K 3.8 < > 4.0 CHLOR 96* < > 100 CO2 29 < > 27 ALB -- -- 3.7* HB 13.8 < > 13.9 HCT 41.3 < > 42.1 WBC 6.46 < > 13.73* MG -- -- 2.0 < > = values in this interval not displayed. Potential Signs of Inflammation: hypoalbuminemia Pressure Injury 12/17/17 2300 Coccyx (Active) Stage Injury 1 12/18/2017 12:00 AM Leather Stitcher Related Pressure Injury No 12/18/2017 12:00 AM Dressing Status None: Open to Air 12/19/2017 10:00 AM Drainage Description None 12/19/2017 10:00 AM Drainage Amount None 12/19/2017 10:00 AM Odor No 12/19/2017 10:00 AM Wound Surface Color [place] 12/19/2017 10:00 AM Surrounding Skin Intact 12/19/2017 10:00 AM Length in Cm - Weekly 4 Cm 12/18/2017 12:00 AM Width in Cm - Weekly 3 Cm 12/18/2017 12:00 AM Depth in Cm - Weekly 0 Cm 12/18/2017 12:00 AM Number of days: 1 MNT Billing Type: Initial Assess/15 min 3 units SIGNATURE: Nga Eagle RD, LD PATIENT NAME: Sherita Jurado DATE: December 19, 2017 TIME: 12:49 PM PAGER: CASE MANAGEM Observed: 12/19/2017 Status: COMPLETED Source: [facility] 12:27 PM CLINIC OTHER CAMPUS REPOSITORY [facility] ID: [id number] Author: Priyanka Robles (Lisw) Service: (none) Author Type: Mathematics Faculty Member Type: Care Mgt Progress Note Filed: 12/19/2017 12:30 PM Note Text: CARE MANAGEMENT PROGRESS NOTE SERVICE DATE: 12/19/2017 SERVICE TIME: 12:28 PM LOS: 0 days Needs Prior to Discharge: Precertification;Discharge Transportation [employer] received notification from [facility] that they can accept pending authorization from insurance. PT/OT notes have been sent. [facility] to attempt precert from [place]. CM will continue to follow. SIGNATURE: BRIELLE Martinez [facility] PATIENT NAME: Sherita Jurado DATE: December 19, 2017 TIME: 12:27 PM PAGER/CONTACT #: [phone] CASE MANAGEM Observed: 12/19/2017 Status: COMPLETED Source: [facility] 9:41 AM [facility] OTHER CAMPUS REPOSITORY [facility] ID: [id number] Author: Priyanka Robles (Lisw) Service: (none) Author Type: Mathematics Faculty Member Type: Care Mgt Progress Note Filed: 12/19/2017 9:42 AM Note Text: CARE MANAGEMENT PROGRESS NOTE SERVICE DATE: 12/19/2017 SERVICE TIME: >now LOS: 0 days Needs Prior to Discharge: Accepting Facility;Discharge Transportation;Precertification BRIELLE sent PT note to [facility] and requested confirmation that they can accept and will start precert. BRIELLE is awaiting a response. CM will continue to follow. SIGNATURE: BRIELLE Martinez [facility] PATIENT NAME: Sherita Jurado DATE: December 19, 2017 TIME: 9:41 AM PAGER/CONTACT #: [phone] THERAPY NT Observed: 12/19/2017 Status: COMPLETED Source: [facility] 9:10 AM [facility] REPOSITORY [facility] ID: [id number] Author: Desi (Pt) Neeta Service: Physical Therapy Author Type: Physical Therapist Type: Therapy (PT/OT/Speech/Resp) Filed: 12/19/2017 9:25 AM Note Text: Physical Therapy Evaluation SERVICE DATE: 12/19/2017 SERVICE TIME: 824 to 54 ROOM: [place] [address] Recommended Discharge Disposition: Subacute/SNF Recommended Discharge Disposition Comments: Pt with decreased balance and safety awareness with LOB during gait and is [place] high falls risk indicating a need for continued PT post acute stay. Justification For Post Acute Needs: Good premorbid functional status;Good sitting tolerance;Willing to participate;May not tolerate higher intensity programing;Anticipate that patient will require daily (5x/wk) skilled therapy in a post-acute facility setting at the time of acute hospital discharge Anticipated Discharge Needs: Physical Assist at Home;Supervision at Home;Equipment Physical Assist at Home for: Cleaning;Meals;Laundry;Medication Management;Stairs;Safety;Self Care;Shopping;Transportation Supervision at Home due to: Impaired cognition Recommended Discharge Equipment: (cane or wheeled walker, least restrictive) PT Recommendations to Nursing: Ambulate with device;To bathroom;In halls;Transfer to/from chair;OOB for Meals;Sit at edge of bed;With assist of 1 person Device: (least restrictive device as needed) PT 6 Clicks Score: 22 Precautions/Activity Restrictions: Bed/Chair Alarm;Fall Risk;Lines/Tubes/Drains ASSESSMENT : Patient presents with decreased balance, noted uncontrolled tremors in UEs with increased difficulty performing functional activity and with history of falls. Pt is Collin to SBA with activity, noted to be unsteady with linear gait and with multiple LOB with directional change requiring assist of PT to regain balance. Pt is AANDO x 3, pleasant and cooperative, requires moderate cues for safe pace with activity. Pt would benefit from continued skilled PT post acute stay to address deficits, possible gait training with device due to decreased balance and history of falls Patient Disposition at Start of Session: OOB in Chair;Chair Alarm Patient Disposition at End of Session: OOB in Chair;Chair Alarm Tolerated Full Session Physical Therapy Problem List: Cognitive Deficit;Safety Deficits;Balance Impaired Patient /Caregiver Goals: (not stated) Goals for Plan of Care: Able to perform HEP with: Independent Transfer sit to/from stand with: Supervision (LRAD if needed) Ambulate with: Supervision Distance: 150-200 Device: (LRAD if needed) Goal: No more than supervision to maintain dynamic standing balance to reduce risk of falls Rehab Potential: Good PLAN: Treatment Frequency (times per week): 3 Current admission Treatment Interventions: Education;Joint Mobility;Strengthening;Functional Mobility Training;Balance Training;Neuromuscular Re-education Plan of Care developed with: Patient (CM and physician notified) TREATMENT INTERVENTIONS: Therapy Diagnosis: Unsteadiness on feet Interventions Provided: Evaluation;Gait Training (83796);Neuromuscular Reeducation (65497) $ Evaluation-Low (34343) Billed Units: 1 unit Gait Training (51959) Treatment Minutes: 13 1 unit Skilled Intervention(s): Instruction in sit to stand technique with proper hand placement and body positioning at edge of bed/chair, Instruction in stand to sit technique with LE's touching chair/bed and reaching back for surface, cues for safe approach to chair Instruction in sequencing, gait pattern, Instruction in correction of gait deviations, safe pace, safety with directional change Instruction in use of equipment, cues for sequence and pattern with use of walker, cues to remain within parameters Verbal explanation and demonstration provided for proper use of walker Stand pivot transfers performed from bed to chair with cues for safe pace as tends to lose balance Education: Pt educated in role of PT during acute stay and PT POC, importance of OOB activity with nursing to reduce risk of functional decline, rationale for discharge recommendation of SNF, use of call light 100% of the time for assist, parameters for safe home going, rationale for practice with use of AD for safe ambulation Neuromuscular Re-Education (22900) Treatment Minutes: 10 1 unit Skilled Intervention(s): Pt performs sidestepping and backwards stepping with UE support available and requiring CGA to SBA for safety, cues provided for safe pace Static standing balance with narrow MARY provided x 2 trials Static standing balance with narrow MARY and eyes closed provided x 2 trials Tandem stance performed x 2 trials with UE support and CGA to Collin of PT SLS performed x 2 trials with difficulty noted achieving position Total Timed Code Treatment Minutes: 23 Total Treatment Time (minutes): 29 FUNCTIONAL G CODE: PT 6 Clicks Score: 22 (12/19/17824) $ Mobility: Walking and Moving Around Current Status (G8978): CJ (12/19/17824) $ Mobility: Walking and Moving Around Goal Status (G8979): CI (12/19/17824) Based on clinical assessment and the score on the 6 Clicks Functional Assessment Tool, the G code and corresponding severity modifiers are documented above. Physician signature certifies treatment plan of care established above for the period of 12/19/2017 through 01/02/2018. SUBJECTIVE: Current Hospital Course: Chart reviewed; Reason for Physical Therapy Consult : New functional deficit not expected to spontaneously improve Relevant Past Medical History: Patient presents to ED on 12/17/17 with nurse from nursing facility where patient lives with a chief complaint of confusion. Patient was found wandering by the police department. PMH: Schizophrenia, Parkinson's, obesity, falls, diziness, palpitations Patient Report: Pt agreeable to PT, ok per nursing to treat. Home Environment Patient Lives With: Facility Care ([facility]) Assistance Available: 24 Hour Entry To Home: No Stairs Number Of Stairs To Bed/Bath: 0 (on ground floor) Tub/Shower Type: tub/shower Laundry: same level Equipment Owned: Hand Held Shower (possible shower chair) Prior Functional Level: History of Falls;Required Assistance Assistance Required With: Meals;Medication Management;Transportation;Shopping Prior Functional Level Comments: Per pt (pt questionable historian): No use of AD, indep ADLs, cleaning/laundry, facility provides meals and RN's provide daily medications, enjoys group outings/picnics OBJECTIVE: Mini Cog Score: 2 (12/18/17 1416) Range of Motion: WFL Strength: WFL CURRENT FUNCTIONAL STATUS: Current Functional Mobility Assist Level Additional Information Rolling Stand By Assistance Supine to Sit Stand By Assistance HOB flat Sit to Supine Stand By Assistance HOB flat Scooting Stand By Assistance Sit to Stand Contact Guard Assistance X 4 trials Stand to Sit Contact Guard Assistance Intermittent LOB on approach to chair Bed to Chair Contact Guard Assistance Bed To Chair Transfer Type: Stand Pivot Bed To Chair Transfer Equipment: Gait Belt X 2 trials Toilet/Commode Gait Minimal Assistance Gait Device: None;Wheeled Walker Gait Distance (feet): 1 x 50', 2 x 80' Very unsteady with directional change with LOB noted without device. With use of AD pt continues to have unsteadiness with directional change and requires cues for safe pace. Stairs Curb Step Car Transfer General Gait Deviations: Lateral sway increased;Narrow Base of Support;Loss of Balance Gait belt donned for OOB activity. Balance: Static Sitting;Dynamic Sitting;Static Standing;Dynamic Standing Static Sitting Balance: Independent Dynamic Sitting Balance: Independent Static Standing Balance: Stand By Assistance Dynamic Standing Balance: Stand By Assistance Please see discipline specific clinical documentation flowsheet for complete details for this therapy evaluation/treatment. SIGNATURE: Desi Santacruz, PT PATIENT NAME: Sherita Jurado DATE: December 19, 2017 TIME: 9:10 AM CBC Collected: 12/19/2017 Status: F Source: [facility] 4:03 AM CLINIC OTHER CAMPUS REPOSITORY TYPE CODE TESTS RESULT OUT OF REFERENCE UNITS RANGE LAB WBC 3.70-11.00 k/uL WBC 6.46 LAB RBC 4.20-6.00 m/uL Low RBC 4.19 LAB HGB 13.0-17.0 g/dL Hemoglobin 13.8 LAB HCT 39.0-51.0 % Hematocrit 41.3 LAB MCV 80.0-100.0 fL MCV 98.6 LAB MCH 26.0-34.0 pG MCH 32.9 LAB MCHC 30.5-36.0 g/dL MCHC 33.4 LAB RDWCV 11.5-15.0 % RDW-CV 12.7 LAB PLTCT 150-400 k/uL Platelet Count 194 LAB MPV 9.0-12.7 fL MPV 10.0 Performed By: #### CBC, BMP #### [facility] [address] [facility] [phone] BASIC METABOLIC PANL Collected: 12/19/2017 Status: F Source: [facility] 4:03 AM CLINIC OTHER CAMPUS REPOSITORY TYPE CODE TESTS RESULT OUT OF REFERENCE UNITS RANGE LAB GLU 74-99 mg/dL Glucose 92 Result Comment: The [place] Diabetes Association (ADA) provides guidance for cutoff values for fasting glucose and random glucose. The ADA defines fasting as no caloric intake for at least 8 hours. Fas ting plasma glucose results between 100 to 125 mg/dL indicate increased risk for diabetes (prediabetes). Fasting plasma glucose results greater than or equal to 126 mg/dL meet the criteria for diagnosis of diabetes. In the absence of unequivocal hyperglycemia, results should be confirmed by repeat testing. In a patient with classic symptoms of hyperglycemia or hyperglycemic crisis, random plasma glucose results greater than or equal to 200 mg/dL meet the criteria for diagnosis of diabetes. Reference: Standards of Medical Care in Diabetes 2016, [place] Diabetes Association. Diabetes Care. 2016.39(Suppl 1). LAB BUN 9-24 mg/dL BUN 12 LAB CRET 0.73-1.22 mg/dL Creatinine Low 0.56 LAB NA 136-144 mmol/L Sodium Low 135 LAB K 3.7-5.1 mmol/L Potassium 3.8 LAB CL 97-105 mmol/L Chloride Low 96 LAB CO2 22-30 mmol/L CO2 29 LAB AGAP 9-18 mmol/L Anion Gap 10 LAB CA 8.5-10.2 mg/dL Calcium, Total 8.7 LAB GFRAA eGFR- Amer. >60 LAB GFRNAA . eGFR-All Other Races >60 Result Comment: eGFR (Estimated GFR) Units of measure: mL/min/1.73 meters squared eGFR is derived from the reexpressed MDRD Study equation using the following parameters: serum creatinine, age, gender and race. The creatinine assay has been calibrated to be traceable to IDMS. An eGFR <60 mL/min/1.73m2 for >3 months is consistent with chronic kidney disease. Refer to KDOQI guidelines for clinical interpretation. In patients with unstable renal function, e.g. those with acute kidney injury, the eGFR may not accurately reflect actual GFR. Performed By: #### CBC, BMP #### [facility] [address] [facility] [phone] CASE MGT INIT Observed: 12/18/2017 Status: COMPLETED Source: [facility] 6:19 PM CLINIC OTHER CAMPUS REPOSITORY [facility] ID: [id number] Author: Alesia Trevino (Sw) Service: Care Management Author Type: Mathematics Faculty Member Type: Care Mgt Initial Assessment Filed: 12/18/2017 6:43 PM Note Text: CARE MANAGEMENT: ASSESSMENT AND DISCHARGE PLAN SERVICE DATE: 12/18/2017 SERVICE TIME: 10:30AM PRIMARY CARE PHYSICIAN: David Hidalgo MD-verified ADMISSION STATUS: Observation Needs Prior to Discharge: To Be Determined;Accepting Facility;Bed Availability;Other: See Comment (Will follow for therapy recommendations. 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 No Advance Directive: Current Advance Directive: None Loading Dock Helper Attempted to Assist with AD Completion: Yes Action: Other: See Comment (Martha Limon. reports he is pts. legal guardian. No copy scanned into medical record) Health Literacy: 1. How often do you need to have someone help you when you read instructions, pamphlets, or other written material from your doctor or pharmacy? Often - 4 2. How confident are you filling out medical forms by yourself? Not at all - 5 If Patient scores > 3 on either question, the following interventions were put into place: Use of plain language and active listening with Patient and family, Use concrete and specific phrases, avoid medical jargon, Forms of communication used with patient and family, Sit with Patient and Teach back methods employed to ensure comprehension FUNCTIONAL AND COGNITIVE/BEHAVIORAL PRIOR TO ADMISSION: Baseline Mental Status: Person, Place and Confused: increasingly confuses. Wandered away from skilled nursing for over 8 hours Functional Status: Needs Assistance Does Patient Currently Receive Any Community Services or Home Care? None Psychiatry Dr. Holder of Equipment Prior to Admission: None Has the Patient Been in a Penitentiary Facility in the Past 30 days? No SOCIAL: Living Arrangement: Home, [facility] Lives With: N/A Patient From Facility Financial Resources: Disabled Primary Contact: Extended Emergency Contact Information Primary Emergency Contact: Martha Govea Address: [place] [address] [facility] Mobile Relation: Guardian Supportive: Yes Other Important Patient Contacts: MelissaPharmacology Professor: Alternate / cell Caregiver Assessment: Caregiver is ready, willing and able to meet the patient's needs as recommended by the inter-professional team? No and custodial can no longer meet the needs of pt. They have been working w/ guardian to get pt. transitioned to LTC facility Patient's transition needs and plan for meeting these needs: discharge to an extended care facility Does the patient have an acute stroke diagnosis, or has the patient had a stroke during this admission? No Medication Adherence: I am convinced of the importance of my prescription medication: Agree mostly - 0 I worry that my prescription medication will do more harm than good to me Disagree mostly - 0 I feel financially burdened by my [id number] expenses for my prescription medication: Disagree mostly -0 Patient is categorized as low risk < 2 Are you interested in bedside delivery of your medications? No Food Concerns: In the Last Month, Have You had Trouble Getting Food? No trouble getting food During the Last Month, Have You Worried Whether Your Food Would Run Out Before You Had Enough Money to Buy More? No Is the Patient Psychosocially Complex? Yes, refer to Social Work. ASSESSMENT AND PLAN: Medical Needs: 2 or more chronic diseases Psychosocial Needs: Mental Health Diagnosis: Schizophrenia FREEDOM OF CHOICE EXPLAINED: Yes given to pts. guardian, Mr. Ja Govea [facility]ference: [facility] as he has been in communication w/them prior to pt. being admitted to the hospital POTENTIAL TRANSITION PLANS Penitentiary Facility/Intermediate Care Facility To Be Determined SW reviewed EMR. Pt. Is from [facility] skilled nursing. Per the notes they are unable to manage pt. As he has wandered away from the facility, his tremors have increased, they have to assist him in eating etc. SW called and spoke to Martha Govea Esq. Re: pts. Discharge plan. Mr. Govea reports that he is pts. Guardian and has been for the past five years. Mr. Govea reports that he has recently been working w/[facility] to get pt. Placed at [facility] retirement. Mr. Govea reports that he has a phone call scheduled w/[facility] to discuss pts. Medicaid (and getting it switched to retirement). If possible, Mr. Govea would like pt. Discharged to [facility]. will send them a referral and find out what documentation is needed. A lady named An from [facility] was present at the hospital today. An reported that she was assigned to do pts. PASRR as his group home placement was initiated in the community. An reported that she would would submit the PASRR However CM may still need to submit another one since pt. Is now hospitalized. JOAO will send the referral and PASRR determination to [facility] and follow for their response. SIGNATURE: Alesia Trevino CUSTOMER ACCOUNT SPECIALIST, PEDRO, YENNY PATIENT NAME: Sherita Jurado DATE: December 18, 2017 TIME: 6:19 PM PAGER/CONTACT #: CONSULT Observed: 12/18/2017 Status: COMPLETED Source: [facility] 3:44 PM CLINIC OTHER CAMPUS REPOSITORY O ID: [id number] Author: Sylvia Mcfarland Service: Neurology Author Type: Physician Type: Consults Filed: 12/18/2017 8:13 PM Note Text: INITIAL CONSULT - GENERAL NEUROLOGY SERVICE DATE: 12/18/2017 Current Attending Provider: Juve Schultz MD Reason for Evaluation: worsening tremors Subjective HPI: This is Mr. Sherita Jurado a 72 year old male from skilled nursing ,treated with antipsychotics for Schizophrenia and had extrapyramidal manifestations As side effects of these medications ,even Seroquel He was given Sinemet for secondary parkinson's,he is also on Amantadine , Recently he wandered from his skilled nursing and was taken to [facility] for medical clearance after being out PE for over 10 hours He was cleared medically sent to the skilled nursing but sent back to the emergency department because of his uncontrolled behavior , since they could not stop him from wandering, and added that he is progressively falling and weak and he is unable to eat because of tremor . Current hospital medications: amantadine HCl 100 mg cap(s) (SYMMETREL) 100 mg ORAL BID carbidopa-levodopa 25-100 mg 1.5 tablet (SINEMET 25-100) 1.5 tablet ORAL TID QUEtiapine 50 mg tab(s) (SEROquel) 50 mg ORAL BID carboxymethylcellulose sodium 1 Drop (CELLUVISC) 1 Drop BOTH EYES QID donepezil (ARICEPT) tab(s) 22.5 mg 22.5 mg ORAL AT BEDTIME cyanocobalamin 1,000 mcg injection 1,000 mcg INTRAMUSCULAR q 4 WEEKS cholecalciferol 1,000 Units tab(s) (VITAMIN D3) 1,000 Units ORAL DAILY PAST MEDICAL HISTORY Diagnosis Date - Actinic keratosis - Breast lump LT breast; cavernous hemangioma/excised - Dizziness - Epidermoid cyst of skin - Falls - Lipoma of skin forearms and abdomen - Mammogram abnormal suspicious of cancer- referral made - Obesity - On retirement drug therapy - Palpitations - Parkinson disease (HCC) - Schizophrenia (HCC) - Tremor - Vitamin D deficiency PAST SURGICAL HISTORY Procedure Laterality Date - NONE Social History Marital status: Single Spouse name: Years of education: Number of children: Social History Main Topics Smoking status: Former Smoker Packs/day: 0.00 Years: 0.00 Smokeless tobacco: Never Used Alcohol use: No Drug use: No Other Topics Concern Caffeine Concern No Comment:none noted Special Diet Not Asked Comment:none noted Exercise Not Asked Comment:none noted FAMILY HISTORY Problem Relation Age of Onset - Family history unknown: Yes ALLERGIES Allergen Reactions - Goose Feathers Allen* Unknown - Zyprexa [Olanzapine] Unknown REVIEW OF SYSTEMS: Patient unable to give ROS Due to his current mental status Objective PHYSICAL EXAM: 12/17/17 2217 12/18/17 0356 12/18/17 0745 12/18/17 1126 BP: 132/75 108/57 137/78 118/57 Pulse: 71 64 69 71 Resp: 16 16 20 20 Temp: 36.6 ?C (97.9 ?F) 36.8 ?C (98.2 ?F) 36.5 ?C (97.7 ?F) 36.7 ?C (98.1 ?F) TempSrc: Oral Oral Oral Oral SpO2: (!) 94% 95% 97% 95% Weight: 75.4 kg (166 lb 3.2 oz) Height: 177.8 cm (5' 10) General Appearance: looked confused ,shaking in the shoulders and arms while sitting in bed Skin: Skin color, texture, turgor normal, no suspicious rashes or lesions Head: Normocephalic, no masses, lesions, tenderness or abnormalities Ears: External ears normal, canals clear Nose/Sinuses: Nares normal, septum midline, mucosa normal, no drainage or sinus tenderness Oropharynx: Lips, mucosa, and tongue normal, teeth and gums normal, oropharynx normal Neck: Supple, no adenopathy; thyroid symmetric, normal size, no bruits Lhermitte's Phenomenon: Negative Lungs: Lungs clear to auscultation. No wheezing, rhonchi, rales Heart: RRR without murmur, gallop, or rubs. No ectopy Carotid Auscultation: Without bruits Abdomen: Normal abdominal exam, Abdomen soft, non-tender. Bowel sounds normal. No masses, organomegaly Extremities: No deformities, edema, skin discoloration, clubbing or cyanosis. Good capillary refill. Musculoskeletal: weakness,deformity, or tenderness Peripheral Pulses: Normal Neurological: ? Mental Status: Alert, oriented to himself and his age disoriented to place ,thinks he is in [place] ,disoriented to day month and year ? and Follows commands. Cranial Nerves: CNII: Visual acuity normal, Visual pérez full to confrontation, No APD noted on exam CNIII, IV, : Pupils equal, round and reactive to light, full extraoccular movements, without nystagmus CN V: Facial sensation intact bilaterally to fine touch and pinprick, masseter 5/5 CN VII: Facial muscles symmetric and strong, No noted facial droop CN VIII: Hears finger rub well bilaterally CN IX: cannot cooperate CN X cannot cooperate CN XI: Full strength shoulder shrug bilaterally CN XII: Tongue protrusion full and midline ? Non-Dilated Fundiscopic Examination: Deferred Examination ? Motor Exam: increased Tone ,tremors in the arms shoulder of variable intensity At thi time I don't see dyskinetic movement REFLEXES Diminished all over ? Sensation: Intact to light touch. ? Coordination: Finger-to- nose-finger intact bilaterally,cannot do HTS ? Gait: Patient's gait not tested at this time for fear of falling AND Shaking ? Romberg: Negative ? Rapid Alternating Movements: slow LABS/DATA: WBC Date Value 12/18/2017 7.48 k/uL 12/17/2017 13.73 k/uL 12/16/2017 14.7 thou/cmm 09/07/2017 7.11 k/uL 09/06/2017 7.71 k/uL RBC Date Value 12/18/2017 4.06 m/uL 12/17/2017 4.29 m/uL 12/16/2017 5.01 mil/cmm 09/07/2017 4.51 m/uL 09/06/2017 4.54 m/uL Platelet Count Date Value 12/18/2017 192 k/uL 12/17/2017 224 k/uL 12/16/2017 301 thou/cmm 09/07/2017 218 k/uL 09/06/2017 233 k/uL BUN (mg/dL) Date Value 12/18/2017 13 12/17/2017 20 12/16/2017 16 11/12/2017 15 09/07/2017 9 Creatinine (mg/dL) Date Value 12/18/2017 0.62 12/17/2017 0.62 12/16/2017 1.11 11/12/2017 0.72 09/07/2017 0.59 Lab Results Component Value Date NEUTP 84.3 12/17/2017 ABSNEUT 11.57 12/17/2017 LYMPHP 9.9 12/17/2017 ABSLYMPH 1.36 12/17/2017 ABSMONO 0.69 12/17/2017 EODINP 0.6 12/17/2017 ABSEOSIN 0.08 12/17/2017 BASOP 0.2 12/17/2017 ABSBASO 0.03 12/17/2017 Lab Results Component Value Date PLT 192 12/18/2017 HB 13.4 12/18/2017 HCT 40.3 12/18/2017 ALB 3.7 12/17/2017 CA 8.6 12/18/2017 TBILI 0.6 12/17/2017 ALKPHOS 76 12/17/2017 AST 20 12/17/2017 GLUC 99 12/18/2017 BUN 13 12/18/2017 NA 135 12/18/2017 K 4.2 12/18/2017 CHLOR 97 12/18/2017 CO2 31 12/18/2017 ANION 7 12/18/2017 ALT 13 12/17/2017 No results found for: WSR, CRP, IGG No results found for: USCRP Cholesterol, Total (mg/dL) Date Value 09/08/2017 154 07/30/2017 176 LDL (mg/dL) Date Value 07/30/2017 110 01/18/2016 121 07/28/2013 125 LDL Calculated (mg/dL) Date Value 09/08/2017 98 HDL Cholesterol (mg/dL) Date Value 09/08/2017 37 07/30/2017 46 01/18/2016 40 Triglyceride (mg/dL) Date Value 09/08/2017 96 07/30/2017 100 01/18/2016 199 Hemoglobin A1C (%) Date Value 09/08/2017 4.8 RECENT MICROBIOLOGY: Blood Cultures: DATA: Diagnostic tests reviewed for today's visit: Most recent labs and imaging results. Impression/Recommendations This is Sherita Jurado, a 72 year old male with schizophrenia and secondary Parkinsonism as well as action tremors Which are disabling for him ,admitted with worsening confusion agitation tremors Will do metabolic work up , As a cause of worsening confusion ,that didn't respond to the decreased dose of Sinemet. Hold on Amantadine as it can make him more psychotic Increase sinemet to 4 times a day ,and monitor his activity Worsening agitation confusion and tremors,clonazepam can help. Will add small dose of klonopin that will help tremors and agitation Will keep his antipsychotic until managed by psychiatrist and if possible Replaced ,althouugh that is a difficult task . There is no psychiatrist for inpatient at [place] at this time Physical therapy and OT Cogentin can be useful in tremors but may cause more confusion at his age Principal Problem: Confusion POA: Yes Active Problems: Alteration in self-care ability POA: Yes Physical debility POA: Yes Schizophrenia (HCC) POA: Yes Parkinsonism (HCC) POA: Yes Uncontrolled shaking Resolved Problems: * No resolved hospital problems. * Hold amantadine Increase sinemet to 1.5 tab four times a day Klonopin for tremors SIGNATURE: Sylvia Mcfarland MD PATIENT NAME: Sherita Jurado DATE: December 18, 2017 TIME: 3:44 PM PAGER/CONTACT #: [phone] THERAPY NT Observed: 12/18/2017 Status: COMPLETED Source: [facility] 2:30 PM [facility] REPOSITORY HNO ID: [id number] Author: Desi SpencerPtJulio César Santacruz Service: Physical Therapy Author Type: Physical Therapist Type: Therapy (PT/OT/Speech/Resp) Filed: 12/18/2017 2:30 PM Note Text: PHYSICAL THERAPY MISSED VISIT SERVICE DATE: 12/18/2017 SERVICE TIME: 1429 to 1429 ROOM: [place] [address] Attempted Evaluation. Patient not seen due to Another service at bedside (OT present). Will return as schedule permits. SIGNATURE: Desi Santacruz PT PATIENT NAME: Sherita Jurado DATE: December 18, 2017 TIME: 2:30 PM THERAPY NT Observed: 12/18/2017 Status: COMPLETED Source: [facility] 2:28 PM [facility] REPOSITORY HNO ID: [id number] Author: Desi Santacruz Service: Physical Therapy Author Type: Physical Therapist Type: Therapy (PT/OT/Speech/Resp) Filed: 12/18/2017 2:28 PM Note Text: PHYSICAL THERAPY MISSED VISIT SERVICE DATE: 12/18/2017 SERVICE TIME: 1350 to 1350 ROOM: [place] [address] Attempted Evaluation. Patient not seen due to Eating. Will return as schedule permits. SIGNATURE: Desi Santacruz PT PATIENT NAME: Sherita Jurado DATE: December 18, 2017 TIME: 2:28 PM PROGRESS Observed: 12/18/2017 Status: COMPLETED Source: [facility] 10:58 AM [facility] REPOSITORY HNO ID: [id number] Author: Juve Schultz MD Service: Hospital Medicine Author Type: Physician Type: Progress Notes Filed: 12/18/2017 10:58 AM Note Text: SERVICE DATE: 12/18/2017 SERVICE TIME: 10:58 AM HOSPITAL MEDICINE PROGRESS NOTE NIGHT AND WEEKEND COVERAGE: Nights: Please contact pager [phone]. Reason for Admission/Observation: Wandering from skilled nursing and unable to be cared for there HOSPITAL DAY ZERO: 12/17/2017 Presentation: 72-year-old male with Parkinson's disease and schizophrenia who wandered from his skilled nursing and was taken to [facility] for medical clearance after being out PE for over 10 hours He was cleared medically sent to the skilled nursing but sent back to the emergency department because a skilled nursing since they could not stop him from wandering, he is progressively falling and weak and he is unable to eat because of tremor from his Parkinson's disease. Consultants: Dr. Mcfarland neurology Disposition: Extended Care Facility SUBJECTIVE Interval HPI:No chest pain or shortness of breath. OBJECTIVE Reviewed lines, drains, AND airways. Need to be continued . BP 137/78 Pulse 69 Temp 36.5 ?C (97.7 ?F) (Oral) Resp 20 Ht 177.8 cm (5' 10) Wt 75.4 kg (166 lb 3.2 oz) SpO2 97% BMI 23.85 kg/m? GENERAL: Alert, no distress, cooperative NECK: No Jugulovenous distention LUNGS: Clear respiratory distress -No CARDIAC: RRR without murmur, rub, or gallop ABDOMEN: Abdomen soft, non-tender, BS normal, No masses or organomegaly EXTREMITIES:no edema No cords NEURO: Grossly motor function, and cranial nerves with marked tremor or proportion to his bradykinesia. He does not remember events that have happened recently and is very amiable but uninformative. DATA: Diagnostic tests reviewed for today's visit: Most recent labs Overview was reviewed. Pulse ox Most recent Xrays/CT Public Health Service Officer CARE COORDINATION: No Patient Care Coordination Note on file. ASSESSMENT AND PLAN Overview, Assessment AND Plan, all Hosp Problems Active Hospital Problems as of 12/18/2017 Noted - Resolved A * (Principal)Confusion 12/17/2017 - Present Overview Unclear etiology Negative head CT Differential include side effect of carbidopa/levodopa Consult Neurology Check vitamin B12 Check TSH Doubt infection Check ammonia Negative tox screen B Alteration in self-care ability 12/18/2017 - Present Current Assessment AND Plan Assessment: The patient had been functioning in a skilled nursing and is now weak and falling and unable to feed himself and has begun wandering off and getting lost PLAN: PT OT and neurology evaluations with plans for snf home placement at least temporarily C Physical debility 12/18/2017 - Present Current Assessment AND Plan Assessment: Apparently falling and weak which are new along with his increased confusion making unmanageable and non-locked facility PLAN: PT and OT evaluation D Schizophrenia ([facility]) 09/07/2017 - Present Overview Continue Quetiapine 50mg BID M Parkinsonism ([facility]) 09/05/2017 - Present Overview Continue carbidopa/levodopa Will consult Neurology if any of his current medications need to be changed given this incident Medication and Non-Pharmacologic VTE Prophylaxis/Anticoagulants 12/17/172229 pneumatic compression stockings ([place] 12/17/172229 activity - mobilize [place] ([place] VTE Prophylaxis: VTE prophylaxis appropriate Plan of care discussed with: Patient, Case Management and RN SIGNATURE: Juve Schultz MD PATIENT NAME: Sherita Jurado DATE: December 18, 2017 TIME: 10:58 AM PAGER/CONTACT #: CBC Collected: 12/18/2017 Status: F Source: [facility] 6:25 AM [facility] OTHER CAMPUS REPOSITORY TYPE CODE TESTS RESULT OUT OF REFERENCE UNITS RANGE LAB WBC 3.70-11.00 k/uL WBC 7.48 LAB RBC 4.20-6.00 m/uL Low RBC 4.06 LAB HGB 13.0-17.0 g/dL Hemoglobin 13.4 LAB HCT 39.0-51.0 % Hematocrit 40.3 LAB MCV 80.0-100.0 fL MCV 99.3 LAB MCH 26.0-34.0 pG MCH 33.0 LAB MCHC 30.5-36.0 g/dL MCHC 33.3 LAB RDWCV 11.5-15.0 % RDW-CV 12.8 LAB PLTCT 150-400 k/uL Platelet Count 192 LAB MPV 9.0-12.7 fL MPV 9.9 Performed By: #### CBC, BMP #### [facility] [address] [phone] BASIC METABOLIC PANL Collected: 12/18/2017 Status: F Source: [facility] 6:25 AM [facility] OTHER [place] REPOSITORY TYPE CODE TESTS RESULT OUT OF REFERENCE UNITS RANGE LAB GLU 74-99 mg/dL Glucose 99 Result Comment: The [place] Diabetes Association (ADA) provides guidance for cutoff values for fasting glucose and random glucose. The ADA defines fasting as no caloric intake for at least 8 hours. Fas ting plasma glucose results between 100 to 125 mg/dL indicate increased risk for diabetes (prediabetes). Fasting plasma glucose results greater than or equal to 126 mg/dL meet the criteria for diagnosis of diabetes. In the absence of unequivocal hyperglycemia, results should be confirmed by repeat testing. In a patient with classic symptoms of hyperglycemia or hyperglycemic crisis, random plasma glucose results greater than or equal to 200 mg/dL meet the criteria for diagnosis of diabetes. Reference: Standards of Medical Care in Diabetes 2016, [place] [employer] Association. Diabetes Care. 2016.39(Suppl 1). LAB BUN 9-24 mg/dL BUN 13 LAB CRET 0.73-1.22 mg/dL Low Creatinine 0.62 LAB NA 136-144 mmol/L Low Sodium 135 LAB K 3.7-5.1 mmol/L Potassium 4.2 LAB CL 97-105 mmol/L Chloride 97 LAB CO2 22-30 mmol/L CO2 High 31 LAB AGAP 9-18 mmol/L Low Anion Gap 7 LAB CA 8.5-10.2 mg/dL Calcium, Total 8.6 LAB GFRAA eGFR- Amer. >60 LAB GFRNAA . eGFR-All Other Races >60 Result Comment: eGFR (Estimated GFR) Units of measure: mL/min/1.73 meters squared eGFR is derived from the reexpressed MDRD Study equation using the following parameters: serum creatinine, age, gender and race. The creatinine assay has been calibrated to be traceable to IDMS. An eGFR <60 mL/min/1.73m2 for >3 months is consistent with chronic kidney disease. Refer to KDOQI guidelines for clinical interpretation. In patients with unstable renal function, e.g. those with acute kidney injury, the eGFR may not accurately reflect actual GFR. Performed By: #### CBC, BMP #### [facility] [address] [phone] NURSING PROG Observed: 12/18/2017 Status: COMPLETED Source: [facility] 6:19 AM CLINIC OTHER CAMPUS REPOSITORY [facility] ID: [id number] Author: Mirna (Rn) JOSE Watson Service: (none) Author Type: Registered Nurse Type: Nursing Progress Note Filed: 12/18/2017 6:24 AM Note Text: Nursing Progress Note Patient Name: Sherita Jurado Patient Location: [place] [id number] Daily Note: Patient did not receive his eye drops or amantadine. MD was notified and stated to the RN that it is ok to start these medications on day shift. Patient fell asleep by the time these 2 medications arrived on the floor. Patient was exhausted from being in the outdoors all day and needed to rest. 0620. Patient continues to rest and sleep at this time. Safety maintained. This note was completed by: Mirna Watson RN NURSING PROG Observed: 12/18/2017 Status: COMPLETED Source: [facility] 5:53 AM [facility] REPOSITORY HNO ID: [id number] Author: Mirna Watson RN Service: (none) Author Type: Registered Nurse Type: Nursing Progress Note Filed: 12/18/2017 5:57 AM Note Text: Nursing Progress Note Patient Name: Sherita Jurado Patient Location: [facility]2S-[id number] Daily Note: 0030, patient sleeping, resps easy on room air. No complaints. 0230 Patient is sleeping soundly. Patient has been very pleasant and cooperative. 0430 Asleep. No complaints. Safety maintained. This note was completed by: Mirna Watson RN NURSING PROG Observed: 12/18/2017 Status: COMPLETED Source: [facility] 4:30 AM [facility] REPOSITORY HNO ID: [id number] Author: Mirna Watson RN Service: (none) Author Type: Registered Nurse Type: Nursing Progress Note Filed: 12/18/2017 4:34 AM Note Text: Nursing Progress Note Patient Name: Sherita Jurado Patient Location: [facility]-0215/[id number] Daily Note: Patient to the floor at 2220. Patient is alert to self, he does not know what facility he is in. He is having difficulty remembering things. He was asked about his bruises and abrasions and how he obtained them, his answer is I don't know. Patient's skin is in fairly good condition. Safety maintained. This note was completed by: Mirna Watson RN AMMONIA Collected: 12/17/2017 Status: F Source: [facility] 11:23 PM [facility] REPOSITORY TYPE CODE TESTS RESULT OUT OF REFERENCE UNITS RANGE LAB NH3 16-60 umol/L Ammonia 25 Performed By: #### NH3 #### [place] [address] TSH Collected: 12/17/2017 Status: F Source: [facility] 11:23 PM [facility] REPOSITORY TYPE CODE TESTS RESULT OUT OF RANGE REFERENCE UNITS LAB TSH 0.400-5.500 uU/mL TSH 2.690 Performed By: #### TSH #### [place] [address] #### B12 #### [facility] [address] [place] [phone] VITAMIN B12 Collected: 12/17/2017 Status: F Source: [facility] 11:23 PM [facility] REPOSITORY TYPE CODE TESTS RESULT OUT OF REFERENCE UNITS RANGE LAB B12 232-1245 pg/mL Vitamin B12 329 Performed By: #### TSH #### [place] [address] #### B12 #### [facility] [address] [place] [address] HISTORY PHYSICAL Observed: 12/17/2017 Status: COMPLETED Source: [facility] 10:16 PM [facility] REPOSITORY HNO ID: [id number] Author: Corona Bruce Service: General Internal Medicine Author Type: Physician Type: HANDP Filed: 12/17/2017 11:09 PM Note Text: INTERNAL MEDICINE HANDP EXAMINATION SERVICE DATE: 12/17/2017 SERVICE TIME: 2214 PRIMARY CARE PHYSICIAN: David Hidalgo MD Subjective CHIEF COMPLAINT: Confusion HISTORY OF PRESENT ILLNESS: Mr. Jurado is a 72 year old male with history of parkinson's disease, presented with confusion. Patient lives in a group home. No family on presentation. As per group home staff, the patient left the group home yesterday for 10 hours. He was seen by police and was taken to [facility]. He was sent from [facility] to group home, however, he was sent from group home to [place] for further evaluation for the confusion episode. Patient doesn't recall what happened yesterday. He doesn't know where he went and he doesn't know how he ended up here. Patient said he has no family in town. He denies any headache, dizziness, weakness. Denies chest pain, shortness of breath. No nausea, vomiting, abdominal pain or diarrhea. No fever, or chills. PAST MEDICAL HISTORY Diagnosis Date - Actinic keratosis - Breast lump LT breast; cavernous hemangioma/excised - Dizziness - Epidermoid cyst of skin - Falls - Lipoma of skin forearms and abdomen - Mammogram abnormal suspicious of cancer- referral made - Obesity - On retirement drug therapy - Palpitations - Parkinson disease (HCC) - Schizophrenia (HCC) - Tremor - Vitamin D deficiency PAST SURGICAL HISTORY Procedure Laterality Date - NONE FAMILY HISTORY Problem Relation Age of Onset - Family history unknown: Yes Social History Substance Use Topics - Smoking status: Former Smoker - Smokeless tobacco: Never Used - Alcohol use No MEDICATIONS: Facility-Administered Medications Prior to Admission: cyanocobalamin 1,000 mcg injection 1,000 mcg INTRAMUSCULAR q 4 WEEKS David Hidalgo 1,000 mcg at 11/19/17 1138 Prescriptions Prior to Admission: carboxymethylcellulose sodium (REFRESH LIQUIGEL) 1 % dlgl Use 1 Drop in both eyes four times daily. Disp: Rfl: Taking carbidopa-levodopa (SINEMET) 25-100 mg per tablet Take 1.5 tablets by mouth three times daily. Disp: 135 tablet Rfl: 11 Taking amantadine HCl (SYMMETREL) 100 mg capsule Take 1 capsule by mouth twice daily. Disp: 60 capsule Rfl: 0 Taking QUEtiapine (SEROQUEL) 50 mg tablet Take 1 tablet by mouth twice daily. Disp: 60 tablet Rfl: 0 Taking cholecalciferol (VITAMIN D) 1,000 unit tab tablet Take 1,000 Units by mouth once daily. Disp: Rfl: Taking Donepezil 23 mg tab Take 1 tablet by mouth daily at bedtime. Disp: Rfl: Taking ALLERGIES Allergen Reactions - Goose Feathers Allen* Unknown - Zyprexa [Olanzapine] Unknown COMPLETE REVIEW OF SYSTEMS: Complete ROS performed and is otherwise negative Objective PHYSICAL EXAM: Patient Vitals for the past 24 hrs: BP Temp Temp src Pulse Resp SpO2 Height Weight 12/17/17 2122 135/71 - - 65 18 95 % - - 12/17/17 1951 135/71 - - 72 18 (!) 94 % - - 12/17/17 1805 133/68 36.9 ?C (98.4 ?F) Oral 83 20 (!) 92 % 177.8 cm (5' 10) 78.2 kg (172 lb 8 oz) Body mass index is 23.85 kg/m?. GENERAL: Alert, no distress, cooperative SKIN: Skin color, texture, turgor normal. No rashes or lesions. OROPHARYNX: Lips, mucosa, and tongue are normal.Teeth and gums, normal. Oropharynx normal. NECK: No jugulovenous distention, Supple LUNGS: Lungs clear to auscultation. Good diaphragmatic excursion. CARDIAC: Normal S1 and S2; no rubs, murmurs, or gallops ABDOMEN: Abdomen soft, non-tender, BS normal, No masses or organomegaly EXTREMETIES: warm, no pitting edema NEURO: oriented to self only PULSES: 2+ radial DATA: Diagnostic tests reviewed for today's visit: Most recent labs and imaging results. Assessment/Plan Active Hospital Problems Diagnosis - Confusion Unclear etiology Negative head CT Differential include side effect of carbidopa/levodopa Consult Neurology Check vitamin B12 Check TSH Doubt infection Check ammonia Negative tox screen - Schizophrenia (HCC) Continue Quetiapine 50mg BID - Parkinsonism (HCC) Continue carbidopa/levodopa Will consult Neurology if any of his current medications need to be changed given this incident Medication and Non-Pharmacologic VTE Prophylaxis/Anticoagulants VTE Prophylaxis: VTE prophylaxis appropriate SIGNATURE: Corona Bruce MD PATIENT NAME: Sherita Jurado DATE: December 17, 2017 TIME: 10:16 PM PAGER/CONTACT #: [id number] URINALYSIS Collected: 12/17/2017 Status: F Source: [facility] 7:52 PM [facility] OTHER CAMPUS REPOSITORY TYPE CODE TESTS RESULT OUT OF RANGE REFERENCE UNITS LAB UCOL Yellow Color Yellow LAB [facility] Clear Clarity Clear LAB UGLUC Negative mg/dL Glucose, Urine Negative LAB UBIL Negative Bilirubin, Urine Negative LAB UKET Negative Ketones, Abnormal Urine Trace Alert LAB USPG 1.001-1.029 Specific [place]ro[place], Ur 1.020 LAB UHGB Negative Abnormal Hemoglobin/Blood, Moderate Alert Ur LAB UPH 5.0-8.0 pH 7.0 LAB UPROT Negative mg/dL Protein, Urine Negative LAB UUROB 0.2-1.0 Urobilinogen 1.0 LAB UNITR Negative Nitrites Negative LAB ULKEST Negative Leukest Negative Performed By: #### UA, UTOX2, UAMIC #### [facility] [address] [place] [address] TOXICOLOGY SCREEN,UR Collected: 12/17/2017 Status: F Source: [facility] 7:52 PM [facility] OTHER CAMPUS REPOSITORY TYPE CODE TESTS RESULT OUT OF REFERENCE UNITS RANGE LAB UPCP2 Negative Negative Phencyclidin e, Urine Result Comment: Cutoff threshold at 25 ng/mL. LAB UBENZ2 Negative Benzodiazepines, Ur Negative Result Comment: Cutoff threshold at 200 ng/mL. LAB UCOC2 Negative Cocaine, Negative Urine Result Comment: Cutoff threshold at 300 ng/mL. LAB UAMPH2 Negative Amphetamines, Urine Negative Result Comment: Cutoff threshold at 1000 ng/mL. LAB UTHC2 Negative Cannabinoids, Urine Negative Result Comment: Cutoff threshold at 50 ng/mL. LAB UOPI2 Negative Opiates, Negative Urine Result Comment: Cutoff threshold at 300 ng/mL. LAB UBARB2 Negative Barbiturates, Urine Negative Result Comment: Cutoff threshold at 200 ng/mL. LAB UOXYC Negative Oxycodone, Urine Negative Result Comment: Cutoff threshold at 100 ng/mL. Comment: Immunoassay screen only. Cross reactivity with other substances can occur with immunoassay screening. Detection of any drug(s) in this urine toxicology panel is presumptive only. These tests are for med ica purposes only and should not be used for compliance monitoring, legal, or forensic use. Samples should be within normal physiological conditions (e.g. pH). This assay does not include adulteration/specimen validity testing. In clinical settings, confirmatory testing is at the practitioner's discretion [1]. If clinically indicated, confirmation by high specificity, quantitative methodology, which includes adulteration/spec imen validity testing, may be requested on the same specimen through Client Services ([phone]) if contacted within 48 hours of initial testing. [1]Substance Abuse and Mental Health Services Administration (2012). Clinical Drug Testing in Primary Care Technical Assistance Publication Series 32. Department of Health and Human Services, [place], p.10. Performed By: #### UA, UTOX2, UAMIC #### [facility] [address] [place] [address] URINE MICROSCOPIC Collected: 12/17/2017 Status: F Source: [facility] (FOR LAB USE ONLY) 7:52 PM CL[facility] OTHER CAMPUS REPOSITORY TYPE CODE TESTS RESULT OUT OF RANGE REFERENCE UNITS LAB UWBC 0-5 /HPF WBC 0-5 LAB URBC 0-3 /HPF Abnormal Alert RBC 5-10 LAB UCAST 0 /LPF Cast SEE COMMENT Result Comment: 0 LAB UCRYS 0 /HPF Abnormal Alert Crystals SEE COMMENT Result Comment: Occasional Amorphous Performed By: #### UA, UTOX2, UAMIC #### [facility] [address] [place] [address] ED NOTE Observed: 12/17/2017 Status: COMPLETED Source: [facility] 7:51 PM [facility] OTHER CAMPUS REPOSITORY HNO ID: [id number] Author: Mya SpencerRn) JOSE Brady Service: (none) Author Type: Registered Nurse Type: ED Notes Filed: 12/17/2017 7:51 PM Note Text: Clean catch urine specimen obtained and sent. ED NOTE Observed: 12/17/2017 Status: COMPLETED Source: [facility] 6:41 PM [facility] OTHER CAMPUS REPOSITORY HNO ID: [id number] Author: Diana SpencerRn) Sherry, JOSE Service: (none) Author Type: Registered Nurse Type: ED Notes Filed: 12/17/2017 6:42 PM Note Text: Patient returned to the Emergency Department. CT BRAIN WO IVCON Observed: 12/17/2017 Status: F Source: [facility] 6:37 PM CLINIC OTHER CAMPUS REPOSITORY * * *Final Report* * * DATE OF EXAM: Dec 17 2017 6:37PM [facility] [place] BRAIN WO IVCON / PROCEDURE REASON: Confusion, acute, unexplained * * * * Physician Interpretation * * * * EXAMINATION: CT BRAIN WO IVCON CLINICAL HISTORY: Confusion, acute, unexplained, TECHNIQUE: Serial axial images without IV contrast were obtained from the vertex to the foramen magnum. MQ: CTBWO_[id number] CT Dose-Length Product (DLP): 778.29 mGy*cm CT Dose Reduction Employed: No dose reduction techniques were required COMPARISON: Brain CT of 09/03/2017 RESULT: Post-operative change: None. Acute change: No evidence of an acute infarct or other acute parenchymal process. Hemorrhage: No evidence of acute intracranial hemorrhage. Mass Lesion / Mass Effect: There is no evidence of an intracranial mass or extraaxial fluid collection. No significant mass effect. Chronic change: None apparent. Parenchyma: There is no significant volume loss. The brain parenchyma is otherwise within normal limits for age. Ventricles: The ventricles are within normal limits of size and configuration for age. Paranasal sinuses and skull base: The visualized paranasal sinuses are grossly clear. The skull base and imaged soft tissues are unremarkable. IMPRESSION: No acute intracranial process is seen. Search Engine Optimization Analyst: PSCB Transcribe Date/Time: Dec 17 2017 6:40P Dictated by : JESSE RESENDIZ MD This examination was interpreted and the report reviewed and electronically signed by: JESSE RESENDIZ MD on Dec 17 2017 6:41PM EST [id number] ED NOTE Observed: 12/17/2017 Status: COMPLETED Source: [facility] 6:31 PM [facility] OTHER CAMPUS REPOSITORY HNO ID: [id number] Author: Diana (Rn) JOSE Powell Service: (none) Author Type: Registered Nurse Type: ED Notes Filed: 12/17/2017 6:31 PM Note Text: Patient transported to CT scan with Tech. XR FOOT 3V AP/LAT/OBL Observed: 12/17/2017 Status: F Source: [facility] 6:26 PM [facility] OTHER CAMPUS REPOSITORY * * *Final Report* * * DATE OF EXAM: Dec 17 2017 6:26PM [facility] [id number] - XR FOOT 3V AP/LAT/OBL BOSSMAN / PROCEDURE REASON: Bone pain, foot * * * * Physician Interpretation * * * * LEFT FOOT, 3 VIEWS RIGHT FOOT, 3 VIEWS HISTORY: Bilateral foot pain TECHNIQUE: AP, lateral, and oblique views were performed of each foot RESULT: Left: No fracture or dislocation is seen. No radiopaque foreign body or gross soft tissue abnormality. Plantar calcaneal enthesophyte. Right: No fracture or dislocation is seen. No radiopaque foreign body or gross soft tissue abnormality. Calcaneal enthesophytes. IMPRESSION: No evidence of acute process. Search Engine Optimization Analyst: WILLOW Transcribe Date/Time: Dec 17 2017 6:50P Dictated by : GHISLAINE LYONS MD This examination was interpreted and the report reviewed and electronically signed by: GHISLAINE LYONS MD on Dec 17 2017 6:51PM EST [id number] CBC AND DIFFERENTIAL Collected: 12/17/2017 Status: F Source: [facility] 6:25 PM CLINIC OTHER CAMPUS REPOSITORY TYPE CODE TESTS RESULT OUT OF REFERENCE UNITS RANGE LAB WBC 3.70-11.00 k/uL WBC High 13.73 LAB RBC 4.20-6.00 m/uL RBC 4.29 LAB HGB 13.0-17.0 g/dL Hemoglobin 13.9 LAB HCT 39.0-51.0 % Hematocrit 42.1 LAB MCV 80.0-100.0 fL MCV 98.1 LAB MCH 26.0-34.0 pG MCH 32.4 LAB MCHC 30.5-36.0 g/dL MCHC 33.0 LAB RDWCV 11.5-15.0 % RDW-CV 13.0 LAB PLTCT 150-400 k/uL Platelet Count 224 LAB MPV 9.0-12.7 fL MPV 9.6 LAB ANEUT % Neut% 84.3 LAB AANEUT 1.45-7.50 k/uL Abs Neut High 11.57 LAB ALYMP % Lymph% 9.9 LAB AALYMP 1.00-4.00 k/uL Abs Lymph 1.36 LAB AMONO % Ceiba% 5.0 LAB AAMONO <0.87 k/uL Abs Ceiba 0.69 LAB AEOS % Eosin% 0.6 LAB AAEOS <0.46 k/uL Abs Eosin 0.08 LAB ABASO % Baso% 0.2 LAB AABASO <0.11 k/uL Abs Baso 0.03 Performed By: #### CBCDIF, ALCO, CMP, MG1 #### [facility] [address] [place] [address] ETHANOL Collected: 12/17/2017 Status: F Source: [facility] 6:25 PM CLIN[facility] OTHER CAMPUS REPOSITORY TYPE CODE TESTS RESULT OUT OF REFERENCE UNITS RANGE LAB ALCO <11 mg/dL Ethanol <11 Performed By: #### CBCDIF, ALCO, CMP, MG1 #### [facility] [address] [facility] [phone] COMP METABOLIC PANEL Collected: 12/17/2017 Status: F Source: [facility] 6:25 PM [facility] OTHER CAMPUS REPOSITORY TYPE CODE TESTS RESULT OUT OF REFERENCE UNITS RANGE LAB TP 6.3-8.0 g/dL Protein, Total 7.5 LAB ALB 3.9-4.9 g/dL Low Albumin 3.7 LAB CA 8.5-10.2 mg/dL Calcium, Total 8.8 LAB TBIL 0.2-1.3 mg/dL Bilirubin, Total 0.6 LAB ALKP 36-108 U/L Alkaline Phosphatase 76 LAB AST 14-40 U/L AST 20 LAB GLU 74-99 mg/dL Glucose 96 Result Comment: The [place] Diabetes Association (ADA) provides guidance for cutoff values for fasting glucose and random glucose. The ADA defines fasting as no caloric intake for at least 8 hours. Fas ting plasma glucose results between 100 to 125 mg/dL indicate increased risk for diabetes (prediabetes). Fasting plasma glucose results greater than or equal to 126 mg/dL meet the criteria for diagnosis of diabetes. In the absence of unequivocal hyperglycemia, results should be confirmed by repeat testing. In a patient with classic symptoms of hyperglycemia or hyperglycemic crisis, random plasma glucose results greater than or equal to 200 mg/dL meet the criteria for diagnosis of diabetes. Reference: Standards of Medical Care in Diabetes 2016, [place] [employer] Association. Diabetes Care. 2016.39(Suppl 1). LAB BUN 9-24 mg/dL BUN 20 LAB CRET 0.73-1.22 mg/dL Creatinine Low 0.62 LAB NA 136-144 mmol/L Sodium Low 135 LAB K 3.7-5.1 mmol/L Potassium 4.0 LAB CL 97-105 mmol/L Chloride 100 LAB CO2 22-30 mmol/L CO2 27 LAB AGAP 9-18 mmol/L Anion Gap Low 8 LAB ALT 10-54 U/L ALT 13 LAB GFRAA eGFR- Amer. >60 LAB GFRNAA . eGFR-All Other Races >60 Result Comment: eGFR (Estimated GFR) Units of measure: mL/min/1.73 meters squared eGFR is derived from the reexpressed MDRD Study equation using the following parameters: serum creatinine, age, gender and race. The creatinine assay has been calibrated to be traceable to IDMS. An eGFR <60 mL/min/1.73m2 for >3 months is consistent with chronic kidney disease. Refer to KDOQI guidelines for clinical interpretation. In patients with unstable renal function, e.g. those with acute kidney injury, the eGFR may not accurately reflect actual GFR. Performed By: #### CBCDIF, ALCO, CMP, MG1 #### [facility] [address] [facility] [phone] MAGNESIUM Collected: 12/17/2017 Status: F Source: [facility] 6:25 PM [facility] REPOSITORY TYPE CODE TESTS RESULT OUT OF REFERENCE UNITS RANGE LAB MG 1.7-2.3 mg/dL Magnesium 2.0 Performed By: #### CBCDIF, ALCO, CMP, MG1 #### [facility] [address] [place] [address] ED NOTE Observed: 12/17/2017 Status: COMPLETED Source: [facility] 6:20 PM [facility] REPOSITORY HNO ID: [id number] Author: Lis (Rn) JOSE Rowe Service: Nursing Author Type: Registered Nurse Type: ED Notes Filed: 12/17/2017 6:20 PM Note Text: Portable xray at bedside. ED PROV NOTE Observed: 12/17/2017 Status: COMPLETED Source: [facility] 6:16 PM [facility] REPOSITORY HNO ID: [id number] Author: Avi Stone MD Service: Emergency Medicine Author Type: Physician Type: ED Provider Notes Filed: 12/17/2017 9:14 PM Note Text: ED Provider Note Patient Name: Sherita Jurado SERVICE DATE: 12/17/17 History Patient presents with: Fall: Left facility yesterday and was wandering for 10 hours found by [place] police. 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 According to nurse, patient has been confused over the last 2 days. He left the facility yesterday and got lost for 10 hours. He was found by police. He was seen at [facility] yesterday and was evaluated and d/c back to the group home. [facility] called his PCP today who told them that he needs to return to the ED for further evaluation and admission. Patient denies any pain. Denies any headaches. Denies any SI or homicidal ideations. PAST MEDICAL HISTORY Diagnosis Date - Actinic keratosis - Breast lump LT breast; cavernous hemangioma/excised - Dizziness - Epidermoid cyst of skin - Falls - Lipoma of skin forearms and abdomen - Mammogram abnormal suspicious of cancer- referral made - Obesity - On upper doubler drug therapy - Palpitations - Parkinson disease (HCC) - Schizophrenia (HCC) - Tremor - Vitamin D deficiency PAST SURGICAL HISTORY Procedure Laterality Date - NONE FAMILY HISTORY Problem Relation Age of Onset - Family history unknown: Yes Social History Social History Main Topics - Smoking status: Former Smoker - Smokeless tobacco: Never Used - Alcohol use No - Drug use: No - Sexual activity: Not on file ALLERGIES Allergen Reactions - Goose Feathers Allen* Unknown - Zyprexa [Olanzapine] Unknown Review of Systems Constitutional: Negative for chills and fever. HENT: Negative for congestion, drooling, ear pain, mouth sores, sinus pressure, sore throat, tinnitus and trouble swallowing. Eyes: Negative for photophobia and visual disturbance. Respiratory: Negative for cough, chest tightness, shortness of breath and wheezing. Cardiovascular: Negative for chest pain and palpitations. Gastrointestinal: Negative for abdominal distention, anal bleeding, constipation, nausea and vomiting. Genitourinary: Negative for dysuria, flank pain and hematuria. Musculoskeletal: Negative for arthralgias, gait problem, neck pain and neck stiffness. Skin: Negative for color change. Neurological: Negative for dizziness, seizures and numbness. Psychiatric/Behavioral: Positive for confusion. Negative for agitation. The patient is not nervous/anxious. Physical Exam BP 133/68 Pulse 83 Temp (Src) 98.4 (Oral) Resp 20 Ht 5' 10 (1.78m) Wt 172 lb 8 oz (78.2kg) SpO2 92% BMI 24.75 kg/(m2). Physical Exam Constitutional: He is oriented to person, place, and time. He appears well-developed and well-nourished. HENT: Head: Normocephalic and atraumatic. Head is without raccoon's eyes and without Mobley's sign. Right Ear: Hearing normal. Left Ear: Hearing normal. Nose: Right sinus exhibits no maxillary sinus tenderness and no frontal sinus tenderness. Left sinus exhibits no maxillary sinus tenderness and no frontal sinus tenderness. Eyes: Conjunctivae and EOM are normal. Neck: Normal range of motion. Neck supple. Cardiovascular: Normal rate. Pulmonary/Chest: Effort normal. Abdominal: Soft. Musculoskeletal: Normal range of motion. Neurological: He is alert and oriented to person, place, and time. He displays no atrophy and no tremor. He displays a negative Romberg sign. He displays no seizure activity. Gait normal. Skin: Skin is warm and dry. Abrasions on left fore arm, both feet bruised. Essential tremors with both hands Psychiatric: He has a normal mood and affect. His behavior is normal. Diagnostic Testing ED Labs Ordered and Reviewed - No data to display XR FOOT GENERAL 3V AP/LAT/OBL BILAT Final Result IMPRESSION: No evidence of acute process. Search Engine Optimization Analyst: WILLOW Transcribe Date/Time: Dec 17 2017 6:50P Dictated by : GHISLAINE LYONS MD This examination was interpreted and the report reviewed and electronically signed by: GHISLAINE LYONS MD on Dec 17 2017 6:51PM EST CT BRAIN WO IVCON Final Result IMPRESSION: No acute intracranial process is seen. Search Engine Optimization Analyst: WILLOW Transcribe Date/Time: Dec 17 2017 6:40P Dictated by : JESSE RESENDIZ MD This examination was interpreted and the report reviewed and electronically signed by: JESSE RESENDIZ MD on Dec 17 2017 6:41PM EST Results for orders placed or performed during the hospital encounter of 12/17/17 COMP METABOLIC PANEL Result Value Ref Range Protein, Total 7.5 6.3 - 8.0 g/dL Albumin 3.7 (L) 3.9 - 4.9 g/dL Calcium 8.8 8.5 - 10.2 mg/dL Bilirubin, Total 0.6 0.2 - 1.3 mg/dL Alkaline Phosphatase 76 36 - 108 U/L AST 20 14 - 40 U/L Glucose 96 74 - 99 mg/dL BUN 20 9 - 24 mg/dL Creatinine 0.62 (L) 0.73 - 1.22 mg/dL Sodium 135 (L) 136 - 144 mmol/L Potassium 4.0 3.7 - 5.1 mmol/L Chloride 100 97 - 105 mmol/L CO2 27 22 - 30 mmol/L Anion Gap 8 (L) 9 - 18 mmol/L ALT 13 10 - 54 U/L eGFR- >60 eGFR-All Other Races >60 . MAGNESIUM BLD Result Value Ref Range Magnesium 2.0 1.7 - 2.3 mg/dL CBC + DIFF Result Value Ref Range WBC 13.73 (H) 3.70 - 11.00 k/uL RBC 4.29 4.20 - 6.00 m/uL Hemoglobin 13.9 13.0 - 17.0 g/dL Hematocrit 42.1 39.0 - 51.0 % MCV 98.1 80.0 - 100.0 fL MCH 32.4 26.0 - 34.0 pG MCHC 33.0 30.5 - 36.0 g/dL RDW-CV 13.0 11.5 - 15.0 % Platelet Count 224 150 - 400 k/uL MPV 9.6 9.0 - 12.7 fL Neut% 84.3 % Abs Neut (ANC) 11.57 (H) 1.45 - 7.50 k/uL Lymph% 9.9 % Abs Lymph 1.36 1.00 - 4.00 k/uL Ceiba% 5.0 % Abs Ceiba 0.69 <0.87 k/uL Eosin% 0.6 % Abs Eosin 0.08 <0.46 k/uL Baso% 0.2 % Abs Baso 0.03 <0.11 k/uL ALCOHOL/ETHANOL BLD Result Value Ref Range Ethanol <11 <11 mg/dL TOX SCREEN ROUT UR Result Value Ref Range Phencyclidine Negative Negative Benzodiazepines Urine Negative Negative Cocaine Urine Negative Negative Amphetamines Negative Negative THC Negative Negative Opiates Negative Negative Barbiturates Negative Negative Oxycodone, Urine Negative Negative URINALYSIS Result Value Ref Range Color Yellow Yellow Appearance (U) Clear Clear Glucose, Urine Negative Negative mg/dL Bilirubin, Urine Negative Negative Ketones, Urine Trace (A) Negative Specific [place], Ur 1.020 1.001 - 1.029 Hemoglobin/Blood,Ur Moderate (A) Negative pH, Urine 7.0 5.0 - 8.0 Protein, Urine Negative Negative mg/dL Urobilinogen 1.0 0.2 - 1.0 Nitrites Negative Negative Leukest Negative Negative URINE MICROSCOPIC Result Value Ref Range WBC, Urine 0-5 0 - 5 /HPF RBC, Urine 5-10 (A) 0 - 3 /HPF Cast SEE COMMENT 0 /LPF Crystal SEE COMMENT (A) 0 /HPF Procedures ED Course / Clinical Impression Clinical Impressions as of Dec 17 2112 Confusion Pain of toe of left foot 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 The nursing note is reviewed and consistent with patient's history and physical exam findings. The vital signs were reviewed the the vital signs are : BP 133/68 Pulse 83 Temp 36.9 ?C (98.4 ?F) (Oral) Resp 20 Ht 177.8 cm (5' 10) Wt 78.2 kg (172 lb 8 oz) SpO2 (!) 92% BMI 24.75 kg/m? CXR directly visualized and independently interpreted by me as well as Radiologist showed: no acute process CT directly visualized and independently interpreted by me as as well as radiologist showed : No acute intracranial process MDM: This is a well-appearing male with a pmh of schizophrenia who presents to the ED with a chief complaint of confusion who is, afebrile , hemodynamically stable, in no acute distress patient . Based on patient's pmh, chief complaint and physical exam findings, differential diagnoses include infection, vs electrolyte imbalance, vs intracranial process. Labs and imaging studies reveal cbc with wbc of 13.7 and cmp with sodium of 135, mag within normal limits , ua with rbc, no nitrites, urine tox within normal limits according to group home report and director, they do not feel safe with the patient going back to the group home, he will be a social admit until further eval for a new placement. The attending who evaluated and managed this patient was Dr. Stone. This note was partially generated using [employer] voice recognition system, and there may be some incorrect words, spellings, and punctuation that were not noted in checking the note before saving SIGNATURE: Jeffrey Hodges PA-C Attending Note I have personally performed a face to face assessment of the patient and have reviewed the PA/CRM SOLUTION ARCHITECT note. My vernon findings include: History - Mr. Jurado is a pleasant 72-year-old male presenting today with a history of Parkinson's and schizophrenia, living in a skilled nursing and doing well for a long time, here after he left the facility and got lost for about 10 hours in 90? plus heat yesterday. He injured his left great toe and second toe and the associate medical director where he lives, Dr. Hidalgo, was very concerned when she saw him today that she would no longer be able to care for medical skilled nursing safely. She wanted him admitted for placement. He doesn't complain of many problems today. Exam - left first 2 toes mildly erythematous, but intact DP pulse on both sides, moving both feet, mildly demented, tremor diffusely Assessment/Plan - Mr. Jurado is a pleasant 72-year-old male presenting today with history of Parkinson's and schizophrenia now presenting after getting lost yesterday with concern that he is not safe or appropriate for where he lives. We will do medical clearance and consider admission should he not be able to be placed directly from here. WBC still minimally up (was yesterday at [facility] as well, a bit better). No UTI. CT brain ok. Will admit to hospitalist for placement as unable to do from here. Other additions or changes: None Signature: Avi Stone MD Date: 12/17/2017 Time: 7:27 PM Jeffrey Hodges (Pa) [id number]/17/[id number] Avi Stone MD [id number] ED NOTE Observed: 12/17/2017 Status: COMPLETED Source: [facility] 6:05 PM [facility] OTHER [facility]AMP[facility] REPOSITORY HNO ID: [id number] Author: Diana SpencerRn) JOSE oPwell Service: (none) Author Type: Registered Nurse Type: ED Notes Filed: 12/17/2017 6:11 PM Note Text: Ino Hodges PA-C in to evaluate patient and speaking with caregiver PROGRESS Observed: 12/17/2017 Status: COMPLETED Source: [facility] 3:25 PM [facility] REPOSITORY HNO ID: [id number] Author: David Hidalgo Service: (none) Author Type: Physician Type: Progress Notes Filed: 12/17/2017 4:23 PM Note Text: Subjective: Sherita Jurado is a 72 year old White male, Patient presents with: ER F/U: pt has scratches, is sunburned, 2 purple toes, ect . HPI He was at his skilled nursing and then was missing for ~ 11 hrs and then was found unconscious ~ 2 miles from his skilled nursing. Was taken to the ER yesterday. He doesn't remember any of the events from yesterday. Was found to have multiple bruises and abrasions on arms/ legs. Rt toe hurts - he is not sure if he injured it or not. Today he had an episode where he stumbled and fell onto the couch. Also had urinary incontinence X1. Been more confused than usual. Has said some things like - ' I am going to go to a place to ' - referring to his possible transfer to SNF. Currently his skilled nursing and guardian are in the process of placing him to SNF d/t increased level of care/ help he needs with his ADLs. No fever/ chills reported No recent n/v/diarrhea No abd pain. PAST MEDICAL HISTORY Diagnosis Date - Actinic keratosis - Breast lump LT breast; cavernous hemangioma/excised - Dizziness - Epidermoid cyst of skin - Falls - Lipoma of skin forearms and abdomen - Mammogram abnormal suspicious of cancer- referral made - Obesity - On upper doubler drug therapy - Palpitations - Parkinson disease (HCC) - Schizophrenia (HCC) - Tremor - Vitamin D deficiency PAST SURGICAL HISTORY Procedure Laterality Date - NONE Social History Substance Use Topics - Smoking status: Former Smoker - Smokeless tobacco: Never Used - Alcohol use No Family history reviewed. ALLERGIES Allergen Reactions - Goose Feathers Allen* Unknown - Zyprexa [Olanzapine] Unknown Current Outpatient Prescriptions: carboxymethylcellulose sodium (REFRESH LIQUIGEL) 1 % dlgl Use 1 Drop in both eyes four times daily. carbidopa-levodopa (SINEMET) 25-100 mg per tablet Take 1.5 tablets by mouth three times daily. amantadine HCl (SYMMETREL) 100 mg capsule Take 1 capsule by mouth twice daily. QUEtiapine (SEROQUEL) 50 mg tablet Take 1 tablet by mouth twice daily. cholecalciferol (VITAMIN D) 1,000 unit tab tablet Take 1,000 Units by mouth once daily. Donepezil 23 mg tab Take 1 tablet by mouth daily at bedtime. Current Facility-Administered Medications: cyanocobalamin 1,000 mcg injection 1,000 mcg INTRAMUSCULAR q 4 WEEKS Review of Systems Constitutional: Negative for chills and fever. HENT: Negative for congestion and sore throat. Respiratory: Negative for cough, shortness of breath and wheezing. Cardiovascular: Negative for chest pain and leg swelling. Gastrointestinal: Negative for abdominal pain, diarrhea, heartburn, nausea and vomiting. Genitourinary: Negative for dysuria. Neurological: Negative for dizziness. BP 106/64 Pulse 72 Temp 98.1 Resp 16 Ht 5' 10 (1.78m) Wt 169 lb 12.8 oz (77.0kg) BMI 24.36 kg/(m2). Physical Exam Constitutional: He is well-developed, well-nourished, and in no distress. No distress. HENT: Head: Normocephalic. Eyes: Conjunctivae are normal. Right eye exhibits no discharge. Left eye exhibits no discharge. Cardiovascular: Normal rate, regular rhythm, normal heart sounds and intact distal pulses. No murmur heard. Pulmonary/Chest: Effort normal and breath sounds normal. No respiratory distress. He has no wheezes. Abdominal: Soft. Bowel sounds are normal. He exhibits no distension. There is no tenderness. Musculoskeletal: Edema: no LE edema. Neurological: He is alert. Skin: Skin is warm and dry. Psychiatric: Affect flat alert - he states that he is currently at [facility], Dec 2017, president - [facility] B/L UE tremors Cr II-XII grossly intact B/l UE/LE symmetrical strength Sensation intact to touch/ pain Lt foot - bruising of Lt great toe, 2nd toe - + tenderness to palpation, pain with dorsal flexion/ plantar flexion of toe multiple abrasion b/l UE/ Rt knee Bruising b/l knees/ below the knee ASSESSMENT/PLAN: 1. Fall, subsequent encounter - ICD9: V58.89, E888.9, ICD10: W19.XXXD (primary diagnosis) 3. Pain of toe of left foot - ICD9: 729.5, ICD10: M79.675 Will order Xray foot to r/o Fx. For now - ice, elevation, rest. - XR FOOT GENERAL 3V AP/LAT/OBL LT 2. Disorientation - ICD9: 780.99, ICD10: R41.0 Was found unconscious after was missing from his skilled nursing. Will check - CT BRAIN WO IVCON Pt also with increased confusion and has no recollection of the events from yesterday. 4. Multiple bruises - ICD9: 924.8, ICD10: T07.XXXA 5. Abrasions of multiple sites - ICD9: 919.0, ICD10: T07.XXXA Local wound care. D/w caregiver - they dont feel comfortable keeping the pt at skilled nursing. My recommendation is that he should be hospitalized and then likely SNF placement. Will order CT head/ Xray foot stat and will call [place] hospitalist for direct admission per caregiver request. Discussed above plan with patient. Pt agreeable with above plan. David Hidalgo MD This note was partially generated using [employer] voice recognition system, and there may be some incorrect words, spellings, and punctuation that were not noted in checking the note before saving. CNOV Observed: 12/17/2017 Status: COMPLETED Source: [place] 3:00 PM [facility] REPOSITORY Office Visit (AGINTMLW) SHERITA JURADO ([id number]) 1945 M Date Time Provider Department 12/17/17 3:00 PM DAVID HIDALGO AGINTMLJonny During your visit today, we recorded the following information about you: Temperature Pulse Respiration Blood pressure 98.1 degrees 72/minute 16/minute 106/64 Weight Height 77 kg 1.778 m David Hidalgo MD 12/17/2017 4:23 PM Signed Subjective: Sherita Jurado is a 72 year old White male, Patient presents with: ER F/U: pt has scratches, is sunburned, 2 purple toes, ect . HPI He was at his skilled nursing and then was missing for ~ 11 hrs and then was found unconscious ~ 2 miles from his skilled nursing. Was taken to the ER yesterday. He doesn't remember any of the events from yesterday. Was found to have multiple bruises and abrasions on arms/ legs. Rt toe hurts - he is not sure if he injured it or not. Today he had an episode where he stumbled and fell onto the couch. Also had urinary incontinence X1. Been more confused than usual. Has said some things like - ' I am going to go to a place to ' - referring to his possible transfer to SNF. Currently his skilled nursing and guardian are in the process of placing him to SNF d/t increased level of care/ help he needs with his ADLs. No fever/ chills reported No recent n/v/diarrhea No abd pain. PAST MEDICAL HISTORY Diagnosis Date - Actinic keratosis - Breast lump LT breast; cavernous hemangioma/excised - Dizziness - Epidermoid cyst of skin - Falls - Lipoma of skin forearms and abdomen - Mammogram abnormal suspicious of cancer- referral made - Obesity - On upper doubler drug therapy - Palpitations - Parkinson disease (HCC) - Schizophrenia (HCC) - Tremor - Vitamin D deficiency PAST SURGICAL HISTORY Procedure Laterality Date - NONE Social History Substance Use Topics - Smoking status: Former Smoker - Smokeless tobacco: Never Used - Alcohol use No Family history reviewed. ALLERGIES Allergen Reactions - Goose Feathers Allen* Unknown - Zyprexa [Olanzapine] Unknown Current Outpatient Prescriptions: carboxymethylcellulose sodium (REFRESH LIQUIGEL) 1 % dlgl Use 1 Drop in both eyes four times daily. carbidopa-levodopa (SINEMET) 25-100 mg per tablet Take 1.5 tablets by mouth three times daily. amantadine HCl (SYMMETREL) 100 mg capsule Take 1 capsule by mouth twice daily. QUEtiapine (SEROQUEL) 50 mg tablet Take 1 tablet by mouth twice daily. cholecalciferol (VITAMIN D) 1,000 unit tab tablet Take 1,000 Units by mouth once daily. Donepezil 23 mg tab Take 1 tablet by mouth daily at bedtime. Current Facility-Administered Medications: cyanocobalamin 1,000 mcg injection 1,000 mcg INTRAMUSCULAR q 4 WEEKS Review of Systems Constitutional: Negative for chills and fever. HENT: Negative for congestion and sore throat. Respiratory: Negative for cough, shortness of breath and wheezing. Cardiovascular: Negative for chest pain and leg swelling. Gastrointestinal: Negative for abdominal pain, diarrhea, heartburn, nausea and vomiting. Genitourinary: Negative for dysuria. Neurological: Negative for dizziness. BP 106/64 Pulse 72 Temp 98.1 Resp 16 Ht 5' 10 (1.78m) Wt 169 lb 12.8 oz (77.0kg) BMI 24.36 kg/(m2). Physical Exam Constitutional: He is well-developed, well-nourished, and in no distress. No distress. HENT: Head: Normocephalic. Eyes: Conjunctivae are normal. Right eye exhibits no discharge. Left eye exhibits no discharge. Cardiovascular: Normal rate, regular rhythm, normal heart sounds and intact distal pulses. No murmur heard. Pulmonary/Chest: Effort normal and breath sounds normal. No respiratory distress. He has no wheezes. Abdominal: Soft. Bowel sounds are normal. He exhibits no distension. There is no tenderness. Musculoskeletal: Edema: no LE edema. Neurological: He is alert. Skin: Skin is warm and dry. Psychiatric: Affect flat alert - he states that he is currently at [facility], Dec 2017, president - [place] B/L UE tremors Cr II-XII grossly intact B/l UE/LE symmetrical strength Sensation intact to touch/ pain Lt foot - bruising of Lt great toe, 2nd toe - + tenderness to palpation, pain with dorsal flexion/ plantar flexion of toe multiple abrasion b/l UE/ Rt knee Bruising b/l knees/ below the knee ASSESSMENT/PLAN: 1. Fall, subsequent encounter - ICD9: V58.89, E888.9, ICD10: W19.XXXD (primary diagnosis) 3. Pain of toe of left foot - ICD9: 729.5, ICD10: M79.675 Will order Xray foot to r/o Fx. For now - ice, elevation, rest. - XR FOOT GENERAL 3V AP/LAT/OBL LT 2. Disorientation - ICD9: 780.99, ICD10: R41.0 Was found unconscious after was missing from his skilled nursing. Will check - CT BRAIN WO IVCON Pt also with increased confusion and has no recollection of the events from yesterday. 4. Multiple bruises - ICD9: 924.8, ICD10: T07.XXXA 5. Abrasions of multiple sites - ICD9: 919.0, ICD10: T07.XXXA Local wound care. D/w caregiver - they dont feel comfortable keeping the pt at skilled nursing. My recommendation is that he should be hospitalized and then likely SNF placement. Will order CT head/ Xray foot stat and will call [place] hospitalist for direct admission per caregiver request. Discussed above plan with patient. Pt agreeable with above plan. David Hidalgo MD This note was partially generated using [employer] voice recognition system, and there may be some incorrect words, spellings, and punctuation that were not noted in checking the note before saving. Referring Provider: SELF [[id number]] Allergies As of Date: 12/17/2017 Noted Allergy Reaction GOOSE FEATHERS ALLERGENIC EXTRACT 11/08/2016 16 - Unknown ZYPREXA (OLANZAPINE) 11/08/2016 16 - Unknown Date Reviewed: 12/17/2017 Reviewed by: Rosalba Lucero) Tk - Fully Assessed Reason for Visit: ER F/U [41] Cmt: pt has scratches, is sunburned, 2 purple toes, ect Primary Visit Diagnosis:Fall, subsequent encounter [W19.XXXD] Other Visit Diagnoses:Disorientation [R41.0] Pain of toe of left foot [M79.675] Multiple bruises [T07.XXXA] Abrasions of multiple sites [T07.XXXA] Order(s):XR FOOT GENERAL 3V AP/LAT/OBL LT [8457438] Order #: [id number] FUTURE CT BRAIN WO IVCON [[id number]] Order #: [id number] FUTURE Prescriptions as of 12/17/2017 Sig: CARBOXYMETHYLCELLULOSE SODIUM* Use 1 Drop in both eyes four * CARBIDOPA 25 MG-LEVODOPA 100 * Take 1.5 tablets by mouth thr* AMANTADINE HCL 100 MG CAPSULE Take 1 capsule by mouth twice* QUETIAPINE 50 MG TABLET Take 1 tablet by mouth twice * CHOLECALCIFEROL (VITAMIN D3) * Take 1,000 Units by mouth onc* DONEPEZIL 23 MG TABLET Take 1 tablet by mouth daily * Problem List As Of Date 12/17/2017 Noted Resolved B12 deficiency [E53.8] INVALID FOR* Tremors of nervous system [R25.1] INVALID FOR*09/08/2017 More... Trouble swallowing [R13.10] INVALID FOR* More... Severe protein-calorie malnutrition (HCC) [E43] INVALID FOR* Urinary retention [R33.9] INVALID FOR* Parkinsonism (HCC) [G20] INVALID FOR* Schizophrenia (HCC) [F20.9] INVALID FOR* Extrapyramidal reaction [G25.9] INVALID FOR* Mild protein-calorie malnutrition (HCC) [E44.1] INVALID FOR* Encounter Status:Closed by MD DAVID HIDALGO on 12/17/17 ED NOTE Observed: 12/16/2017 Status: COMPLETED Source: [place] 10:18 PM [facility] REPOSITORY HNO ID: [id number] Author: Bruce Watts) Juan J RN Service: Emergency Medicine Author Type: Registered Nurse Type: ED Notes Filed: 12/16/2017 10:19 PM Note Text: Staff arrives from [facility] to take pt back. Discharge instructions reviewed. Denies questions. Pt ambulated self out with [facility] staff. ED NOTE Observed: 12/16/2017 Status: COMPLETED Source: [place] 10:00 PM [facility] [place] REPOSITORY HNO ID: [id number] Author: Bruce Watts) JOSE Arita Service: Emergency Medicine Author Type: Registered Nurse Type: ED Notes Filed: 12/16/2017 10:18 PM Note Text: Diana from [facility] called [facility] properties stating guardian called her and states he wants patient back at [facility] and that they are to come mixing picker tender pt from ED ED NOTE Observed: 12/16/2017 Status: COMPLETED Source: [place] 9:25 PM [facility] REPOSITORY HNO ID: [id number] Author: Bruce Watts) Juan J RN Service: Emergency Medicine Author Type: Registered Nurse Type: ED Notes Filed: 12/16/2017 9:25 PM Note Text: Called Conrad Govea patients guardian, no answer, left message to call [facility]. ED NOTE Observed: 12/16/2017 Status: COMPLETED Source: [place] 9:15 PM [facility] REPOSITORY HNO ID: [id number] Author: Bruce Watts) Juan J RN Service: Emergency Medicine Author Type: Registered Nurse Type: ED Notes Filed: 12/16/2017 9:25 PM Note Text: Shawanda from [facility] called said she got a hold of guardian and told him to call Diana at [facility] nd discuss the plan of care for patient. ED NOTE Observed: 12/16/2017 Status: COMPLETED Source: [place] 9:02 PM [facility] [place] REPOSITORY HNO ID: [id number] Author: Bruce Watts) Juan J RN Service: Emergency Medicine Author Type: Registered Nurse Type: ED Notes Filed: 12/16/2017 9:02 PM Note Text: After 3 attempts from pt to obtain clean catch urine, straight cath specimen was obtained. ED NOTE Observed: 12/16/2017 Status: COMPLETED Source: [place] 9:01 PM [facility] REPOSITORY HNO ID: [id number] Author: Bruce SpencerRn) Juan J RN Service: Emergency Medicine Author Type: Registered Nurse Type: ED Notes Filed: 12/16/2017 9:02 PM Note Text: Straight cath urine specimen obtained and sent. URINALYSIS ROUTINE Collected: 12/16/2017 Status: F Source: [facility] 8:55 PM HEALTH SYSTEM REPOSITORY TYPE CODE TESTS RESULT OUT OF RANGE REFERENCE UNITS LAB LCOLR(LOIN C) Urine Color DARK YELLOW LAB LAPPU(LOIN C) Urine Appearance 1+ (HAZY) LAB LGLUR(LOIN Negative C) Glucose Urine NEGATIVE LAB LKETO(LOIN Negative C) Abnormal Ketone Urine TRACE LAB LHGBU(LOIN Negative C) Abnormal Hemoglobin,Urin TRACE-INTACT e LAB LPRTU(LOIN Negative C) Protein Urine NEGATIVE LAB LNITR(LOIN Negative C) Nitrites Urine NEGATIVE LAB LBILU(LOIN Negative C) Bilirubin Urine NEGATIVE LAB LSPG(LOINC 1.005-1.030 ) Specific 1.015 [place], Ur LAB LPHUR(LOIN 5.0-8.0 C) pH,Urine 6.5 LAB LUROB(LOIN 0.0-1.0 EU/dL C) Urobilinogen,Ur 0.2 LAB LLEUK(LOIN Negative C) Leukocytes NEGATIVE Esterase LAB LWBCU(LOIN 0-5 /hpf C) WBC, Urine 0-2 LAB LRBCU(LOIN 0-3 /hpf C) RBC,Urine 0-3 LAB LEPIT(LOIN 0-5 /hpf C) Ep Cells Urine 0-2 LAB LBACT(LOIN None C) Abnormal Bacteria Urine FEW LAB LMUCU(LOIN None C) Mucus Threads FEW LAB LHYCA(LOIN None /lpf C) Abnormal Hyaline Cast 0-1 Performed By: #### LURIN #### [place] [address] ED NOTE Observed: 12/16/2017 Status: COMPLETED Source: [place] 8:22 PM [facility] REPOSITORY HNO ID: [id number] Author: Bruce Watts) Juan J, RN Service: Emergency Medicine Author Type: Registered Nurse Type: ED Notes Filed: 12/16/2017 8:25 PM Note Text: Spoke with Shawanda from [facility] again, states she cannot get a hold of guardian. States he doesn't not meet criteria for admission through them. States we need to continue to try to reach guardian or Speak with diana at [facility]. ED NOTE Observed: 12/16/2017 Status: COMPLETED Source: [place] 7:40 PM [facility] REPOSITORY HNO ID: [id number] Author: Bruce SpencerRn) Juan J, RN Service: Emergency Medicine Author Type: Registered Nurse Type: ED Notes Filed: 12/16/2017 8:12 PM Note Text: Spoke with Shawanda from [facility], states Diana from [facility] called her to come assess pt. Shawanda states she does not feel patient meets criteria for them to come assess him. States she was going to call patients guardian to discuss the situation. Confirmed phone number with our paperwork. States she will call back. ED PROV NOTE Observed: 12/16/2017 Status: COMPLETED Source: [place] 7:38 PM [facility] REPOSITORY HNO ID: [id number] Author: Eusebio Xiao DO Service: Emergency Medicine Author Type: Physician Type: ED Provider Notes Filed: 12/16/2017 10:41 PM Note Text: ED Provider Note Patient Name: Sherita Jurado SERVICE DATE: 12/16/17 History Patient presents with: Altered Level Of Consciousness patient presents by EMS after he was found wandering along the road. Per EMS the patient has been missing from his skilled nursing since approximately 1 AM. The patient tells me that he left for exercise that there was no trauma no fall he laid down a few times in the brush because he was tired but denies any physical discomfort. PAST MEDICAL HISTORY Diagnosis Date - Actinic keratosis - Breast lump LT breast; cavernous hemangioma/excised - Dizziness - Epidermoid cyst of skin - Falls - Lipoma of skin forearms and abdomen - Mammogram abnormal suspicious of cancer- referral made - Obesity - On retirement drug therapy - Palpitations - Parkinson disease (HCC) - Schizophrenia (HCC) - Tremor - Vitamin D deficiency PAST SURGICAL HISTORY Procedure Laterality Date - NONE FAMILY HISTORY Problem Relation Age of Onset - Family history unknown: Yes Social History Social History Main Topics - Smoking status: Former Smoker - Smokeless tobacco: Never Used - Alcohol use No - Drug use: No - Sexual activity: Not on file ALLERGIES Allergen Reactions - Goose Feathers Allen* Unknown - Zyprexa [Olanzapine] Unknown Review of Systems Constitutional: Positive for fatigue. Negative for activity change, appetite change, chills, diaphoresis, fever and unexpected weight change. Patient is awake alert and sunburned but otherwise cooperative HENT: Negative. Eyes: Negative. Respiratory: Negative. Cardiovascular: Negative. Gastrointestinal: Negative. Genitourinary: Negative. Musculoskeletal: Negative. Neurological: Negative. Psychiatric/Behavioral: Negative for hallucinations. Patient has a history of schizophrenia however he denies any current hallucinations. States he is not afraid here. He is oriented to person, place, year, and recent history he is able to give me All other systems reviewed and are negative. Physical Exam BP 124/69 Pulse 80 Temp (Src) 99.5 (Temporal Artery) Resp 18 Ht 5' 10 (1.78m) Wt 173 lb (78.5kg) SpO2 100% BMI 24.82 kg/(m2). Physical Exam Constitutional: He is oriented to person, place, and time. He appears well-developed and well-nourished. No distress. patient is sunburned, scratched, and has dirt from the ground on him otherwise he is not distressed HENT: Head: Normocephalic and atraumatic. Right Ear: External ear normal. Left Ear: External ear normal. Mouth/Throat: Oropharynx is clear and moist. poor dentition Eyes: Pupils are equal, round, and reactive to light. Conjunctivae and EOM are normal. Neck: Normal range of motion. Neck supple. Cardiovascular: Normal rate, regular rhythm, normal heart sounds and intact distal pulses. No murmur heard. Pulmonary/Chest: Effort normal and breath sounds normal. Abdominal: Soft. Bowel sounds are normal. Musculoskeletal: Normal range of motion. Neurological: He is alert and oriented to person, place, and time. Skin: Skin is warm and dry. Capillary refill takes less than 2 seconds. does have multiple linear scratches especially on his left arm which are superficial. These are consistent with abrasions from bushes for example. There are no foreign bodies or deep wounds requiring repair Nursing note and vitals reviewed. Diagnostic Testing ED Labs Ordered and Reviewed COMPREHENSIVE METABOLIC PANEL (AK,AV,EU,FV,HL,ELISSA,MM,SP) - Abnormal; Notable for the following: Result Value Ref Range Protein, Total 9.6 (*) 6.4 - 8.2 g/dL Bilirubin, Total 1.5 (*) 0.2 - 1.0 mg/dL All other components within normal limits CBC + AUTO DIFF (AK,AV,EU,FV,HL,ELISSA,MM,SP) - Abnormal; Notable for the following: WBC 14.7 (*) 4.8 - 10.8 thou/cmm MCV 97.6 (*) 80.0 - 94.0 fl MCH 32.3 (*) 27.0 - 31.0 pg Abs. Neut(Anc) 12.49 (*) 3.00 - 5.67 thou/cmm Abs. Lymph 1.03 (*) 1.50 - 3.65 thou/cmm Abs. Ceiba 1.18 (*) 0.20 - 1.00 thou/cmm All other components within normal limits TROPONIN I (AK) CK CREATINE KINASE (AK,AV,EU,FV,HL,ELISSA,MM,SP) MDRD GFR URINALYSIS (AV,EU,FV,HL,ELISSA,MM,SP) XR CHEST 2V FRONTAL/LAT Final Result EXAMINATION: ?CHEST RADIOGRAPH (2 VIEW FRONTAL AND LATERAL) ? CLINICAL HISTORY: Altered level consciousness, weakness ? ? ? MQ: ?XC2_5 Comparison: ?08/04/2017 ? ? RESULT: ? Lines, tubes, and devices: ?None. ? Lungs and pleura: ?No consolidation. No lung mass. No pleural effusion. ? Cardiomediastinal silhouette: ?Normal cardiomediastinal silhouette. ? Other: ?. ? ? IMPRESSION: ? No acute radiographic abnormality. ? Procedures ED Course / Clinical Impression Clinical Impressions as of Dec 16 1937 Sunburn Multiple abrasions Need for tetanus, diphtheria, and acellular pertussis (Tdap) vaccine MDM / Disposition / Plan patient had medical clearance including CBC and BMP. Urine has been ordered for the last several hours and he has tried twice to urinate but states he simply does not feel he needs to. He has been given IV fluid. He remains very calm and cooperative. The nurses called the facility to return him and they were told that she would not accept him. We did try to admit him then to Dr. Fernandez to see if they could place him in a group home but Dr. Vicente had spoken with Dr. Hidalgo his physician who felt that the patient could potentially be too disruptive for the nursing staff here. The nurses then called the facility back to stated that she wanted a psychiatric evaluation from [facility] were called and they stated if the patient was not suicidal or homicidal B would not see him in the ED. They then called back subsequently stating that the facility where he lived the [facility] was insisting that they see him and so they would be coming in to evaluate him. I observe the patient up going to the bathroom twice and his gait is steady and independent. He does not appear to be responding to internal stimuli or acting out in any way at this time. He is calm and cooperative for us. At this time if he produces urine and this will be followed up by my partner Dr. Oakes. At the time of dictation [facility] has not arrived yet. I did complete discharge instructions for the patient if he is able to return back to his facility. In the absence of suicidality, homicidality, active decompensated schizophrenia I do not see a need to transfer this patient to a psychiatric hospital for hospitalization. My understanding from the nurses who have spoken with the storage facility housekeeper is that they are actively trying to place him in a group home in an outpatient effort. I believe that this could continue as an outpatient based on his evaluation in the emergency department. I also did not CT his head as he had no trauma no headache normal gait and no focal weakness or neuro deficit. Review of old medical records show patient has had prior emergency department visits with similar presentations.. Disposition The patient was discharged. Counseled regarding lab results, radiology results and suspected diagnosis. As well as the need for follow-up. Discharged home with verbal and written instructions. They were instructed to return as needed for persistent or worsening symptoms or any new concerns. Condition at disposition is stable. The patient was DISCHARGED: Counseled caregiver and guardian regarding lab results AND suspected diagnosis AND need for follow-up. Discharged home with verbal and written instructions. They were instructed to return as needed for persistent or worsening symptoms or any new concerns. Condition at time of disposition: stable SIGNATURE: MD Eusebio Leyva, DO 12/16/17 2241 ED NOTE Observed: 12/16/2017 Status: COMPLETED Source: [place] 7:16 PM [facility] [place] REPOSITORY HNO ID: [id number] Author: Silva SpencerRn) JOSE Kennedy Service: Emergency Medicine Author Type: Registered Nurse Type: ED Notes Filed: 12/16/2017 7:17 PM Note Text: Nelia called back and said she will come out and evaulate pt d/t diana being upset. Pt sitting calm and quietly on cart. No distress noted. ED NOTE Observed: 12/16/2017 Status: COMPLETED Source: [place] 6:53 PM [facility] [place] REPOSITORY HNO ID: [id number] Author: Brittany SpencerRn) JOSE Roberts Service: Emergency Medicine Author Type: Registered Nurse Type: ED Notes Filed: 12/16/2017 6:54 PM Note Text: Nelia calling from [facility] and states she cannot come out to do a psych eval if the patient is not suicidal or having hallucinations. She suggests for Diana to call nursing homes first thing in the morning for placement. Nursing supervisor properties aware and will call Diana to update. ED NOTE Observed: 12/16/2017 Status: COMPLETED Source: [place] 6:14 PM [facility] REPOSITORY HNO ID: [id number] Author: Brittany SpencerRn) JOSE Roberts Service: Emergency Medicine Author Type: Registered Nurse Type: ED Notes Filed: 12/16/2017 6:17 PM Note Text: [facility] contacted for possible psych admission evaluation as requested by Diana (director of [facility]). Awaiting callback. ED NOTE Observed: 12/16/2017 Status: COMPLETED Source: [place] 5:40 PM [facility] [place] REPOSITORY HNO ID: [id number] Author: Brittany SpencerRn) JOSE Roberts Service: Emergency Medicine Author Type: Registered Nurse Type: ED Notes Filed: 12/16/2017 5:40 PM Note Text: Dr. Fernandez calling back to speak with Dr. Nieves. Dr. Fernandez not accepting pt at this time. ED NOTE Observed: 12/16/2017 Status: COMPLETED Source: [place] 5:35 PM [facility] [place] REPOSITORY HNO ID: [id number] Author: Brittany SpencerRn) JOSE Roberts Service: Emergency Medicine Author Type: Registered Nurse Type: ED Notes Filed: 12/16/2017 6:31 PM Note Text: Reinaldo from [facility] calling and states I just wanted to make sure you are aware that Diana called me and said the patient is not able to come back to [facility]. Reinaldo informed we are aware and states to call him back for any questions. ED NOTE Observed: 12/16/2017 Status: COMPLETED Source: [place] 5:21 PM [facility] REPOSITORY HNO ID: [id number] Author: Brittany SpencerRn) JOSE Roberts Service: Emergency Medicine Author Type: Registered Nurse Type: ED Notes Filed: 12/16/2017 5:21 PM Note Text: Dr. Hidalgo paged through answering service for possible admission. CHEST 2 VIEWS Observed: 12/16/2017 Status: F Source: [facility] 5:18 PM HEALTH SYSTEM REPOSITORY Performed at [facility] APPROVED BY: Janes Wing MD EXAMINATION: CHEST RADIOGRAPH (2 VIEW FRONTAL & LATERAL) CLINICAL HISTORY: Altered level consciousness, weakness MQ: XC2_5 Comparison: 08/04/2017 RESULT: Lines, tubes, and devices: None. Lungs and pleura: No consolidation. No lung mass. No pleural effusion. Cardiomediastinal silhouette: Normal cardiomediastinal silhouette. Other: . IMPRESSION: No acute radiographic abnormality. ED NOTE Observed: 12/16/2017 Status: COMPLETED Source: [place] 5:10 PM [facility] REPOSITORY HNO ID: [id number] Author: Brittany SpencerRn) JOSE Roberts Service: Emergency Medicine Author Type: Registered Nurse Type: ED Notes Filed: 12/16/2017 5:26 PM Note Text: Diana Diane, Director of [facility], calling to state that if pt is going to be discharged from the ER, he is not welcome to come back to [facility] d/t being an un-safe flight risk. States it is not the first time he has been reported missing from facility. She said it has been in the works of getting him placement into a group home for safety reasons. Dr. Ezequiel sage and PEDRO Mallory paged. Per Diana, pts guardian Conrad Cole, who is at the bedside, also feels it is unsafe to release him back to [facility]. HEMOGRAM/MANUAL DIFF Collected: 12/16/2017 Status: F Source: [place] [facility] 3:40 PM [facility] REPOSITORY TYPE CODE TESTS RESULT OUT OF REFERENCE UNITS RANGE LAB LWBC(LOINC 4.8-10.8 thou/cmm ) WBC High 14.7 LAB LRBC(LOINC 4.60-6.20 mil/cmm ) RBC 5.01 LAB LHGB(LOINC 14.0-18.0 g/dL ) Hgb 16.2 LAB LHCT(LOINC 42.0-52.0 % ) Hct 48.9 LAB LMCV(LOINC 80.0-94.0 fl ) MCV High 97.6 LAB LMCH(LOINC 27.0-31.0 pg ) MCH High 32.3 LAB LMCHC(LOIN 32.0-36.0 % C) MCHC 33.1 LAB LRDW(LOINC 11.5-15.9 % ) RDW 12.7 LAB LPLT(LOINC 150-400 thou/cmm ) Platelet 301 LAB LMPV(LOINC 7.1-10.5 fl ) MPV 9.7 LAB LDTYP(LOIN C) Diff Type Manual Diff LAB LSEGT(LOIN % C) Seg Neutrophil 85.0 LAB LLYMP(LOIN % C) Lymphocyte 7.0 LAB LMNO(LOINC % ) Monocyte 8.0 LAB ABRAM(LOINC % ) Eosinophil 0.0 LAB LBASO(LOIN % C) Basophil 0.0 LAB LSEGN(LOIN 3.00-5.67 thou/cmm C) Abs. High Neut (ANC) 12.49 LAB LLYMN(LOIN 1.50-3.65 thou/cmm C) Low Abs. Lymph 1.03 LAB LMONN(LOIN 0.20-1.00 thou/cmm C) Abs. High Ceiba 1.18 LAB LEOSN(LOIN 0.00-0.41 thou/cmm C) Abs. Eosin 0.00 LAB LBASN(LOIN 0.00-0.08 thou/cmm C) Abs. Baso 0.00 LAB LPLES(LOIN C) Platelet Estimate Normal LAB LRBCM(LOIN C) RBC Morphology Normal Performed By: #### LMCBD #### [facility] [address] [place] [address] TROPONIN I Collected: 12/16/2017 Status: F Source: [facility] 340 HEALTH SYSTEM REPOSITORY TYPE CODE TESTS RESULT OUT OF REFERENCE UNITS RANGE LAB LTRP(LOINC) <=0.07 ng/mL Troponin I 0.05 Performed By: #### LTRP #### [facility] [address] [place] [address] COMPREHENSIVE PANEL Collected: 12/16/2017 Status: F Source: [facility] 3:40 HEALTH SYSTEM REPOSITORY TYPE CODE TESTS RESULT OUT OF REFERENCE UNITS RANGE LAB AIR CARGO AGENT(LOINC) 136-145 mEq/L Sodium Blood 138 LAB LK(LOINC) 3.5-5.1 mEq/L Potassium Blood 4.0 LAB LCL(LOINC) 98-107 mEq/L Chloride Blood 101 LAB LCO2(LOINC 21-32 mEq/L ) CO2 Blood 27 LAB LGLU(LOINC 70-99 mg/dL ) Glucose Blood 95 LAB LBUN(LOINC 7-25 mg/dL ) BUN Blood 16 LAB LCREA(LOIN 0.67-1.17 mg/dL C) Creatinine Blood 1.11 LAB LCA(LOINC) 8.5-10.1 mg/dL Calcium Blood 9.6 LAB LALB(LOINC 3.4-5.0 g/dL ) Albumin Blood 4.1 LAB LTP(LOINC) 6.4-8.2 g/dL Total High Protein 9.6 LAB LAST(LOINC 15-37 U/L ) AST-SGOT Blood 24 LAB LALT(LOINC 14-63 U/L ) ALT-SGPT Blood 28 LAB LALKP(LOIN 46-116 U/L C) Alk Phosphatase 106 LAB LBILT(LOIN 0.2-1.0 mg/dL C) Total High Bilirubin 1.5 LAB LANGP(LOIN 8-20 C) Anion Gap 14 LAB LBNCR(LOIN 10-20 C) BUN/Creatinine 14 Ratio Performed By: #### LP14 #### [facility] [address] [place] [address] CPK Collected: 12/16/2017 Status: F Source: [facility] 340 HEALTH SYSTEM REPOSITORY TYPE CODE TESTS RESULT OUT OF RANGE REFERENCE UNITS LAB LCK(LOINC) 39-308 U/L CPK 174 Performed By: #### LCK #### [facility] [address] [place], [place] [address] MDRD EGFR Collected: 12/16/2017 Status: F Source: [facility] 3:40 PM HEALTH SYSTEM REPOSITORY TYPE CODE TESTS RESULT OUT OF RANGE REFERENCE UNITS LAB LGFRF(LOINC >60mL/min/1.73m ) 2 eGFR >60 Result Comment: If the patient is , multiply the result by 1.210. Performed By: #### LGFR #### [facility] [address] [place], [place] [address] ED NOTE Observed: 12/16/2017 Status: COMPLETED Source: [place] 3:38 PM [facility] REPOSITORY HNO ID: [id number] Author: Brittany SpencerRn) JOSE Roberts Service: Emergency Medicine Author Type: Registered Nurse Type: ED Notes Filed: 12/16/2017 3:39 PM Note Text: Pt was reported missing from skilled nursing around 1am this morning. Pt was found a little while ago lying down in someones yard. Brought to Er by ems. PROGRESS Observed: 12/10/2017 Status: COMPLETED Source: [place] 10:35 AM [facility] REPOSITORY HNO ID: [id number] Author: David Hidalgo Service: (none) Author Type: Physician Type: Progress Notes Filed: 12/17/2017 1:49 PM Note Text: Subjective: Sherita Jurado is a 72 year old White male, Patient presents with: Wellness . HPI Shaking still there, unchanged. No falls. Continues to have unsteady gait Eating slight better. Weight still dropping some. Staff at not allowed to feed pt. No hallucinations reported. Has appt with Dr. Holder next week. Vision blurry still - saw the eye doctor twice since he was seen on 11/12/17. No changes per caregiver. Guardian looking at SNF facilities for placement. B12 monthly inj - last dose 11/19/17 - next appt 12/22/17 PAST MEDICAL HISTORY Diagnosis Date - Actinic keratosis - Breast lump LT breast; cavernous hemangioma/excised - Dizziness - Epidermoid cyst of skin - Falls - Lipoma of skin forearms and abdomen - Mammogram abnormal suspicious of cancer- referral made - Obesity - On retirement drug therapy - Palpitations - Parkinson disease (HCC) - Schizophrenia (HCC) - Tremor - Vitamin D deficiency PAST SURGICAL HISTORY Procedure Laterality Date - NONE Social History Substance Use Topics - Smoking status: Former Smoker - Smokeless tobacco: Never Used - Alcohol use No Family history reviewed. ALLERGIES Allergen Reactions - Goose Feathers Allen* Unknown - Zyprexa [Olanzapine] Unknown Current Outpatient Prescriptions: carboxymethylcellulose sodium (REFRESH LIQUIGEL) 1 % dlgl Use 1 Drop in both eyes four times daily. carbidopa-levodopa (SINEMET) 25-100 mg per tablet Take 1.5 tablets by mouth three times daily. amantadine HCl (SYMMETREL) 100 mg capsule Take 1 capsule by mouth twice daily. QUEtiapine (SEROQUEL) 50 mg tablet Take 1 tablet by mouth twice daily. cholecalciferol (VITAMIN D) 1,000 unit tab tablet Take 1,000 Units by mouth once daily. Donepezil 23 mg tab Take 1 tablet by mouth daily at bedtime. Current Facility-Administered Medications: cyanocobalamin 1,000 mcg injection 1,000 mcg INTRAMUSCULAR q 4 WEEKS Review of Systems Constitutional: Negative for chills, fever, malaise/fatigue and weight loss. HENT: Negative for congestion, ear pain and sore throat. Eyes: Negative for blurred vision and double vision. Respiratory: Negative for cough, shortness of breath and wheezing. Cardiovascular: Negative for chest pain and leg swelling. Gastrointestinal: Negative for abdominal pain, constipation, diarrhea, heartburn, nausea and vomiting. Genitourinary: Negative for dysuria. Skin: Negative for rash. Neurological: Negative for dizziness and headaches. BP 102/70 Pulse 68 Temp (Src) 98.2 (Oral) Resp 18 Ht 5' 10.5 (1.79m) Wt 165 lb (74.8kg) SpO2 98% BMI 23.33 kg/(m2). Physical Exam Constitutional: He is well-developed, well-nourished, and in no distress. No distress. HENT: Head: Normocephalic. Eyes: Conjunctivae are normal. Right eye exhibits no discharge. Left eye exhibits no discharge. Cardiovascular: Normal rate, regular rhythm, normal heart sounds and intact distal pulses. No murmur heard. Pulmonary/Chest: Effort normal and breath sounds normal. No respiratory distress. He has no wheezes. Abdominal: Soft. Bowel sounds are normal. He exhibits no distension. There is no tenderness. Musculoskeletal: Edema: no LE edema. Neurological: He is alert. Skin: Skin is warm and dry. Psychiatric: Mood and affect normal. + b/l UE tremors Alert - tells me he is at [facility], current year is 2017, current president is Darwin ASSESSMENT/PLAN: 1. 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 Residual schizophrenia (HCC) - ICD9: 295.60, ICD10: F20.5 Cont Rx per psych 3. B12 deficiency - ICD9: 266.2, ICD10: E53.8 Cont B12 replacement - monthly injections - last dose 11/19/17 - next appt 12/22/17 4. Severe protein-calorie malnutrition (HCC) - ICD9: 262, ICD10: E43 Cont to encourage po intake Pt having ongoing issues with parkinson's and difficulty with ADLs. custodial unable to take care of pt. Agree with placement to SNF. Discussed above plan with patient/ caregiver. Pt / caregiver agreeable with above plan. Guardian was informed of need for placement to SNF 11/12/17. David Hidalgo MD This note was partially generated using [employer] voice recognition system, and there may be some incorrect words, spellings, and punctuation that were not noted in checking the note before saving. CNOV Observed: 12/10/2017 Status: COMPLETED Source: [place] 10:20 AM [facility] REPOSITORY Office Visit (AGINTMLW) SHERITA JURADO ([id number]) 1945 M Date Time Provider Department 12/10/17 10:20 AM DAVID HIDALGOMLJonny During your visit today, we recorded the following information about you: Temperature Pulse Respiration Blood pressure 98.2 degrees 68/minute 18/minute 102/70 Weight Height 74.8 kg 1.791 m David Hidalgo MD 12/17/2017 1:49 PM Signed Subjective: Sherita Jurado is a 72 year old White male, Patient presents with: Wellness . HPI Shaking still there, unchanged. No falls. Continues to have unsteady gait Eating slight better. Weight still dropping some. Staff at not allowed to feed pt. No hallucinations reported. Has appt with Dr. Holder next week. Vision blurry still - saw the eye doctor twice since he was seen on 11/12/17. No changes per caregiver. Guardian looking at [facility] facilities for placement. B12 monthly inj - last dose 11/19/17 - next appt 12/22/17 PAST MEDICAL HISTORY Diagnosis Date - Actinic keratosis - Breast lump LT breast; cavernous hemangioma/excised - Dizziness - Epidermoid cyst of skin - Falls - Lipoma of skin forearms and abdomen - Mammogram abnormal suspicious of cancer- referral made - Obesity - On retirement drug therapy - Palpitations - Parkinson disease (HCC) - Schizophrenia (HCC) - Tremor - Vitamin D deficiency PAST SURGICAL HISTORY Procedure Laterality Date - NONE Social History Substance Use Topics - Smoking status: Former Smoker - Smokeless tobacco: Never Used - Alcohol use No Family history reviewed. ALLERGIES Allergen Reactions - Goose Feathers Allen* Unknown - Zyprexa [Olanzapine] Unknown Current Outpatient Prescriptions: carboxymethylcellulose sodium (REFRESH LIQUIGEL) 1 % dlgl Use 1 Drop in both eyes four times daily. carbidopa-levodopa (SINEMET) 25-100 mg per tablet Take 1.5 tablets by mouth three times daily. amantadine HCl (SYMMETREL) 100 mg capsule Take 1 capsule by mouth twice daily. QUEtiapine (SEROQUEL) 50 mg tablet Take 1 tablet by mouth twice daily. cholecalciferol (VITAMIN D) 1,000 unit tab tablet Take 1,000 Units by mouth once daily. Donepezil 23 mg tab Take 1 tablet by mouth daily at bedtime. Current Facility-Administered Medications: cyanocobalamin 1,000 mcg injection 1,000 mcg INTRAMUSCULAR q 4 WEEKS Review of Systems Constitutional: Negative for chills, fever, malaise/fatigue and weight loss. HENT: Negative for congestion, ear pain and sore throat. Eyes: Negative for blurred vision and double vision. Respiratory: Negative for cough, shortness of breath and wheezing. Cardiovascular: Negative for chest pain and leg swelling. Gastrointestinal: Negative for abdominal pain, constipation, diarrhea, heartburn, nausea and vomiting. Genitourinary: Negative for dysuria. Skin: Negative for rash. Neurological: Negative for dizziness and headaches. BP 102/70 Pulse 68 Temp (Src) 98.2 (Oral) Resp 18 Ht 5' 10.5 (1.79m) Wt 165 lb (74.8kg) SpO2 98% BMI 23.33 kg/(m2). Physical Exam Constitutional: He is well-developed, well-nourished, and in no distress. No distress. HENT: Head: Normocephalic. Eyes: Conjunctivae are normal. Right eye exhibits no discharge. Left eye exhibits no discharge. Cardiovascular: Normal rate, regular rhythm, normal heart sounds and intact distal pulses. No murmur heard. Pulmonary/Chest: Effort normal and breath sounds normal. No respiratory distress. He has no wheezes. Abdominal: Soft. Bowel sounds are normal. He exhibits no distension. There is no tenderness. Musculoskeletal: Edema: no LE edema. Neurological: He is alert. Skin: Skin is warm and dry. Psychiatric: Mood and affect normal. + b/l UE tremors Alert - tells me he is at [facility], current year is 2017, current president is Boogie[place] ASSESSMENT/PLAN: 1. 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 Residual schizophrenia (HCC) - ICD9: 295.60, ICD10: F20.5 Cont Rx per psych 3. B12 deficiency - ICD9: 266.2, ICD10: E53.8 Cont B12 replacement - monthly injections - last dose 11/19/17 - next appt 12/22/17 4. Severe protein-calorie malnutrition (HCC) - ICD9: 262, ICD10: E43 Cont to encourage po intake Pt having ongoing issues with parkinson's and difficulty with ADLs. custodial unable to take care of pt. Agree with placement to SNF. Discussed above plan with patient/ caregiver. Pt / caregiver agreeable with above plan. Guardian was informed of need for placement to SNF 11/12/17. David Hidalgo MD This note was partially generated using [employer] voice recognition system, and there may be some incorrect words, spellings, and punctuation that were not noted in checking the note before saving. Referring Provider: DAVID HIDALGO [[id number]] Allergies As of Date: 12/10/2017 Noted Allergy Reaction GOOSE FEATHERS ALLERGENIC EXTRACT 11/08/2016 16 - Unknown ZYPREXA (OLANZAPINE) 11/08/2016 16 - Unknown Date Reviewed: 11/12/2017 Reviewed by: Brigid (Folder Tier) Robert - Fully Assessed Reason for Visit: Wellness [440] Primary Visit Diagnosis:Other drug-induced secondary parkinsonism (HCC) [G21.19] Other Visit Diagnoses:Residual schizophrenia (HCC) [F20.5] B12 deficiency [E53.8] Severe protein-calorie malnutrition (HCC) [E43] Prescriptions as of 12/10/2017 Sig: CARBOXYMETHYLCELLULOSE SODIUM* Use 1 Drop in both eyes four * CARBIDOPA 25 MG-LEVODOPA 100 * Take 1.5 tablets by mouth thr* AMANTADINE HCL 100 MG CAPSULE Take 1 capsule by mouth twice* QUETIAPINE 50 MG TABLET Take 1 tablet by mouth twice * CHOLECALCIFEROL (VITAMIN D3) * Take 1,000 Units by mouth onc* DONEPEZIL 23 MG TABLET Take 1 tablet by mouth daily * Problem List As Of Date 12/10/2017 Noted Resolved B12 deficiency [E53.8] INVALID FOR* Tremors of nervous system [R25.1] INVALID FOR*09/08/2017 More... Trouble swallowing [R13.10] INVALID FOR* More... Severe protein-calorie malnutrition (HCC) [E43] INVALID FOR* Urinary retention [R33.9] INVALID FOR* Parkinsonism (HCC) [G20] INVALID FOR* Schizophrenia (HCC) [F20.9] INVALID FOR* Extrapyramidal reaction [G25.9] INVALID FOR* Mild protein-calorie malnutrition (HCC) [E44.1] INVALID FOR* Notes for Staff Discussed this visit Follow Up: Discussed this visit Disposition: Return if symptoms worsen or fail to improve. Follow-up and Disposition History Recorded Encounter Status:Closed by MD DAVID HIDALGO on 12/17/17 PROGRESS Observed: 11/19/2017 Status: COMPLETED Source: [place] 11:41 AM [facility] REPOSITORY HNO ID: [id number] Author: Rosalba Wilkinson Service: (none) Author Type: Housing Case Manager Type: Progress Notes Filed: 11/19/2017 11:53 AM Note Text: Patient has been identified by name and date of : Yes Sherita is here for an injection of Vitamin B12 Dose: 1000mcg/ml Route: Intramuscular Given without incident. Site: right deltoid Exhaust Equipment Operator: [place]. Lot #: [id number] [facility] #: [id number] Expiration Date: 01/2019 Dr. Hidalgo present in clinic at time of injection. The date due for the next injection is 1 month. Rosalba Wilkinson MA CNNURSE Observed: 11/19/2017 Status: COMPLETED Source: [place] 11:20 AM [facility] REPOSITORY Nurse Visit (AGINTMLW) SHERITA JURADO ([id number]) 1945 Date Time Provider Department 11/19/17 11:20 AM NURSE INTM KARLA LODI AGINTMLW During your visit today, we recorded the following information about you: Temperature Pulse Blood pressure 97.9 degrees 72/minute 110/68 Rosalba Wilkinson MA 11/19/2017 11:53 AM Signed Patient has been identified by name and date of : Yes Sherita is here for an injection of Vitamin B12 Dose: 1000mcg/ml Route: Intramuscular Given without incident. Site: right deltoid Exhaust Equipment Operator: [place]. Lot #: [id number] [facility] #: [id number] Expiration Date: 01/2019 Dr. Hidalgo present in clinic at time of injection. The date due for the next injection is 1 month. Rosalba Wilkinson MA Referring Provider: DAVID HIDALGO [[id number]] Allergies As of Date: 11/19/2017 Noted Allergy Reaction GOOSE FEATHERS ALLERGENIC EXTRACT 11/08/2016 16 - Unknown ZYPREXA (OLANZAPINE) 11/08/2016 16 - Unknown Date Reviewed: 11/12/2017 Reviewed by: Brigid Mejia) Robert - Fully Assessed Reason for Visit: B-12 Injection [247] Primary Visit Diagnosis:B12 deficiency [E53.8] Order(s):ADMIN VITAMIN B12 INJ [[id number]] Order #: [id number] [START ON 11/20/2017] cyanocobalamin 1,000 mcg injectionDisp: Rfl: Prescriptions as of 11/19/2017 Sig: CARBIDOPA 25 MG-LEVODOPA 100 * Take 1.5 tablets by mouth thr* AMANTADINE HCL 100 MG CAPSULE Take 1 capsule by mouth twice* QUETIAPINE 50 MG TABLET Take 1 tablet by mouth twice * CHOLECALCIFEROL (VITAMIN D3) * Take 1,000 Units by mouth onc* DONEPEZIL 23 MG TABLET Take 1 tablet by mouth daily * Problem List As Of Date 11/19/2017 Noted Resolved B12 deficiency [E53.8] INVALID FOR* Tremors of nervous system [R25.1] INVALID FOR*09/08/2017 More... Trouble swallowing [R13.10] INVALID FOR* More... Severe protein-calorie malnutrition (HCC) [E43] INVALID FOR* Urinary retention [R33.9] INVALID FOR* Parkinsonism (HCC) [G20] INVALID FOR* Schizophrenia (HCC) [F20.9] INVALID FOR* Extrapyramidal reaction [G25.9] INVALID FOR* Mild protein-calorie malnutrition (HCC) [E44.1] INVALID FOR* Prescriptions ordered this encounter Disp Refills Start End CYANOCOBALAMIN (VIT B-12) 1,000 MCG/* 11/20/2017 10/22/2018 Route: INTRAMUSCULA Level of Service: OFFICE VISIT NO CHARGE WITH PROCEDURE [[id number]] LOS history recorded Follow-up and Disposition History Recorded Encounter Status:Closed by ROSALBA WILKINSON MA on 11/19/17 BASIC PANEL Collected: 11/12/2017 Status: F Source: [facility] 11:51 AM HEALTH SYSTEM REPOSITORY TYPE CODE TESTS RESULT OUT OF REFERENCE UNITS RANGE LAB AIR CARGO AGENT(LOINC) 136-145 mEq/L Low Sodium Blood 134 LAB LK(LOINC) 3.5-5.1 mEq/L Potassium Blood 3.7 LAB LCL(LOINC) 98-107 mEq/L Chloride Blood 98 LAB LCO2(LOINC 21-32 mEq/L ) CO2 High Blood 34 LAB LGLU(LOINC 70-99 mg/dL ) Glucose Blood 79 LAB LBUN(LOINC 7-25 mg/dL ) BUN Blood 15 LAB LCREA(LOIN 0.67-1.17 mg/dL C) Creatinine Blood 0.72 LAB LCA(LOINC) 8.5-10.1 mg/dL Calcium Blood 8.7 LAB LANGP(LOIN 8-20 C) Low Anion Gap 6 LAB LBNCR(LOIN 10-20 C) High BUN/Creatinine 21 Ratio Performed By: #### LP8 #### [place] [address] MDRD EGFR Collected: 11/12/2017 Status: F Source: [facility] 11:51 AM HEALTH SYSTEM REPOSITORY TYPE CODE TESTS RESULT OUT OF RANGE REFERENCE UNITS LAB LGFRF(LOINC >60mL/min/1.73m ) 2 eGFR >60 Result Comment: If the patient is , multiply the result by 1.210. Performed By: #### LGFR #### [place] [address] VITAMIN B12 Collected: 11/12/2017 Status: F Source: [facility] 11:51 AM HEALTH SYSTEM REPOSITORY TYPE CODE TESTS RESULT OUT OF REFERENCE UNITS RANGE LAB B12(LOINC) 193-986 pg/mL Vitamin B12 295 Performed By: #### B12 #### [place] [address] PROGRESS Observed: 11/12/2017 Status: COMPLETED Source: [place] 10:04 AM [facility] REPOSITORY HNO ID: [id number] Author: David Hidalgo Service: (none) Author Type: Physician Type: Progress Notes Filed: 11/13/2017 9:54 AM Note Text: Subjective: Sherita Jurado is a 72 year old White male, Patient presents with: Discussion: group home option . HPI Pt here with Neva( caregiver) Patient was hospitalized 09/03-09/07/17 at [facility] then transferred to [facility] and was discharged back to skilled nursing on 09/12/17. He was hospitalized for worsening tremors, difficulty performing ADLs and frequent falls, he was evaluated by neurology and was recommended to be transferred to [facility] for neurology and psychiatry collaboration. It was suspected that his tremors were likely secondary to drug-induced Parkinson's - he was maintained on Sinemet 25-100 2 tablets TID ,amantadine 100 mg BID, donpezil 23mg qhs and quetiapine 50mg BID. He has seen Dr. Holder - 10/10/17 - no med changes made at that appt. Dr. Reyes 10/16/17 - reduced Sinemet to 1.5 tabs TID but the new dosage didn't come in the mail till last week - so the pt has been on the reduced only for 1 week.. For past 1 month he is getting worse again - shakes are worse again, been unsteady but no falls. Still having difficulty feeding himself. Weight steady since released from the hospital but overall lower than usual. No choking noted. Missed breakfast 2 days ago as he felt very shaky and afraid of falling. Denies any issues with urination - no retention Regular BM but have been hard - 'i need more fiber' Also has had some hallucinations though pt tends to have them periodically. Neva will get in touch with Dr. Holder if they are persistent or worse. Per caregiver Neva, pt is getting to a point where they feel they cant keep him safe, cant feed him - think its best he be shifted to a SNF. They have spoken to pt's POA in the past and he has been agreeable. On going through ROS - he stated his vision has been blurry for couple of days but then states may be a week. Caregiver was not aware of worsening vision. Pt states he stopped wearing his eyeglasses since they were 'not helping'. Pt has h/o macular degeneration receiving 'injections'. Per caregiver they did not notice any changes in his vision, has been watching TV as usual. Doesn't normally read books etc. PAST MEDICAL HISTORY Diagnosis Date - Actinic keratosis - Breast lump LT breast; cavernous hemangioma/excised - Dizziness - Epidermoid cyst of skin - Falls - Lipoma of skin forearms and abdomen - Mammogram abnormal suspicious of cancer- referral made - Obesity - On upper doubler drug therapy - Palpitations - Parkinson disease (HCC) - Schizophrenia (HCC) - Tremor - Vitamin D deficiency PAST SURGICAL HISTORY Procedure Laterality Date - NONE Social History Substance Use Topics - Smoking status: Former Smoker - Smokeless tobacco: Never Used - Alcohol use No Family history reviewed. ALLERGIES Allergen Reactions - Goose Feathers Allen* Unknown - Zyprexa [Olanzapine] Unknown Current Outpatient Prescriptions: carbidopa-levodopa (SINEMET) 25-100 mg per tablet Take 1.5 tablets by mouth three times daily. amantadine HCl (SYMMETREL) 100 mg capsule Take 1 capsule by mouth twice daily. QUEtiapine (SEROQUEL) 50 mg tablet Take 1 tablet by mouth twice daily. cholecalciferol (VITAMIN D) 1,000 unit tab tablet Take 1,000 Units by mouth once daily. Donepezil 23 mg tab Take 1 tablet by mouth daily at bedtime. No current facility-administered medications for this visit. Review of Systems Constitutional: Negative for chills, fever and malaise/fatigue. HENT: Negative for congestion and sore throat. Respiratory: Negative for cough, shortness of breath and wheezing. Cardiovascular: Negative for chest pain and leg swelling. Gastrointestinal: Negative for abdominal pain, constipation, diarrhea, heartburn, nausea and vomiting. Genitourinary: Negative for dysuria. Skin: Negative for rash. Neurological: Negative for dizziness and headaches. Psychiatric/Behavioral: Negative for depression. BP 92/64 Pulse 60 Temp (Src) 97.8 (Oral) Ht 5' 10.5 (1.79m) Wt 172 lb 3.2 oz (78.1kg) BMI 24.35 kg/(m2). Physical Exam Constitutional: He is well-developed, well-nourished, and in no distress. No distress. HENT: Head: Normocephalic. Eyes: Conjunctivae and EOM are normal. Right eye exhibits no discharge. Left eye exhibits no discharge. Cardiovascular: Normal rate, regular rhythm, normal heart sounds and intact distal pulses. No murmur heard. Pulmonary/Chest: Effort normal and breath sounds normal. No respiratory distress. He has no wheezes. Abdominal: Soft. Bowel sounds are normal. He exhibits no distension. There is no tenderness. Musculoskeletal: Edema: no LE edema. Neurological: He is alert. Skin: Skin is warm and dry. + tremors b/l UE, no rigidity PERRL ~ 3mm, EOMI ASSESSMENT/PLAN: 1. 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 B12 deficiency - ICD9: 266.2, ICD10: E53.8 Recheck levels, and resume injections - freq. to be determined based on levels. - VITAMIN B12 BLOOD 3. Residual schizophrenia (HCC) - ICD9: 295.60, ICD10: F20.5 Cont meds per psych. 4. Blurry vision, bilateral - ICD9: 368.8, ICD10: H53.8 Unclear timeline, but will call pt's fiscal specialist to get seen urgently. 5. BP lower in office today but pt denied any dizziness/ lightheadedness. Orthos (-) though his HR did go up from sitting to standing. D/w neva to encourage his PO intake especially fluid intake. Also will discuss with pt's POA - Mr. Cole regarding SNF placement. POA was informed by the physician at the time of discharge from the hospital that the patient would be a candidate for SNF placement. But at that time it was thought that the patient was doing better and may be able to return to the skilled nursing. But as stated above skilled nursing is not able to provide all the care and it will be best for the pt to be at a SNF. Discussed above plan with patient and caregiver - Neva. They are agreeable with above plan. Addendum - spoke with [facility] - appt arranged for 11/15/17 at 10 AM at cable office - information communicated to Neva and PHUONG. Spoke with Mr. Cole (POA) - conveyed above information, he is agreeable to getting pt placed at SNF. He will make arrangements and contact my office for any further information or assistance. David Hidalgo MD This note was partially generated using [employer] voice recognition system, and there may be some incorrect words, spellings, and punctuation that were not noted in checking the note before saving. OUMOU Observed: 11/12/2017 Status: COMPLETED Source: [place] 10:00 AM [facility] REPOSITORY Office Visit (AGINTMLW) SHERITA JURADO ([id number]) 1945 M Date Time Provider Department 11/12/17 10:00 AM DAVID HIDALGO During your visit today, we recorded the following information about you: Temperature Weight Height 97.8 degrees 78.1 kg 1.791 m David Hidalgo MD 11/13/2017 9:54 AM Signed Subjective: Sherita Jurado is a 72 year old White male, Patient presents with: Discussion: group home option . HPI Pt here with Neva( caregiver) Patient was hospitalized 09/03-09/07/17 at [facility] then transferred to [facility] and was discharged back to skilled nursing on 09/12/17. He was hospitalized for worsening tremors, difficulty performing ADLs and frequent falls, he was evaluated by neurology and was recommended to be transferred to [facility] for neurology and psychiatry collaboration. It was suspected that his tremors were likely secondary to drug-induced Parkinson's - he was maintained on Sinemet 25-100 2 tablets TID ,amantadine 100 mg BID, donpezil 23mg qhs and quetiapine 50mg BID. He has seen Dr. Holder - 10/10/17 - no med changes made at that appt. Dr. Reyes 10/16/17 - reduced Sinemet to 1.5 tabs TID but the new dosage didn't come in the mail till last week - so the pt has been on the reduced only for 1 week.. For past 1 month he is getting worse again - shakes are worse again, been unsteady but no falls. Still having difficulty feeding himself. Weight steady since released from the hospital but overall lower than usual. No choking noted. Missed breakfast 2 days ago as he felt very shaky and afraid of falling. Denies any issues with urination - no retention Regular BM but have been hard - 'i need more fiber' Also has had some hallucinations though pt tends to have them periodically. Neva will get in touch with Dr. Holder if they are persistent or worse. Per caregiver Neva, pt is getting to a point where they feel they cant keep him safe, cant feed him - think its best he be shifted to a SNF. They have spoken to pt's POA in the past and he has been agreeable. On going through ROS - he stated his vision has been blurry for couple of days but then states may be a week. Caregiver was not aware of worsening vision. Pt states he stopped wearing his eyeglasses since they were 'not helping'. Pt has h/o macular degeneration receiving 'injections'. Per caregiver they did not notice any changes in his vision, has been watching TV as usual. Doesn't normally read books etc. PAST MEDICAL HISTORY Diagnosis Date - Actinic keratosis - Breast lump LT breast; cavernous hemangioma/excised - Dizziness - Epidermoid cyst of skin - Falls - Lipoma of skin forearms and abdomen - Mammogram abnormal suspicious of cancer- referral made - Obesity - On retirement drug therapy - Palpitations - Parkinson disease (HCC) - Schizophrenia (HCC) - Tremor - Vitamin D deficiency PAST SURGICAL HISTORY Procedure Laterality Date - NONE Social History Substance Use Topics - Smoking status: Former Smoker - Smokeless tobacco: Never Used - Alcohol use No Family history reviewed. ALLERGIES Allergen Reactions - Goose Feathers Allen* Unknown - Zyprexa [Olanzapine] Unknown Current Outpatient Prescriptions: carbidopa-levodopa (SINEMET) 25-100 mg per tablet Take 1.5 tablets by mouth three times daily. amantadine HCl (SYMMETREL) 100 mg capsule Take 1 capsule by mouth twice daily. QUEtiapine (SEROQUEL) 50 mg tablet Take 1 tablet by mouth twice daily. cholecalciferol (VITAMIN D) 1,000 unit tab tablet Take 1,000 Units by mouth once daily. Donepezil 23 mg tab Take 1 tablet by mouth daily at bedtime. No current facility-administered medications for this visit. Review of Systems Constitutional: Negative for chills, fever and malaise/fatigue. HENT: Negative for congestion and sore throat. Respiratory: Negative for cough, shortness of breath and wheezing. Cardiovascular: Negative for chest pain and leg swelling. Gastrointestinal: Negative for abdominal pain, constipation, diarrhea, heartburn, nausea and vomiting. Genitourinary: Negative for dysuria. Skin: Negative for rash. Neurological: Negative for dizziness and headaches. Psychiatric/Behavioral: Negative for depression. BP 92/64 Pulse 60 Temp (Src) 97.8 (Oral) Ht 5' 10.5 (1.79m) Wt 172 lb 3.2 oz (78.1kg) BMI 24.35 kg/(m2). Physical Exam Constitutional: He is well-developed, well-nourished, and in no distress. No distress. HENT: Head: Normocephalic. Eyes: Conjunctivae and EOM are normal. Right eye exhibits no discharge. Left eye exhibits no discharge. Cardiovascular: Normal rate, regular rhythm, normal heart sounds and intact distal pulses. No murmur heard. Pulmonary/Chest: Effort normal and breath sounds normal. No respiratory distress. He has no wheezes. Abdominal: Soft. Bowel sounds are normal. He exhibits no distension. There is no tenderness. Musculoskeletal: Edema: no LE edema. Neurological: He is alert. Skin: Skin is warm and dry. + tremors b/l UE, no rigidity PERRL ~ 3mm, EOMI ASSESSMENT/PLAN: 1. 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 B12 deficiency - ICD9: 266.2, ICD10: E53.8 Recheck levels, and resume injections - freq. to be determined based on levels. - VITAMIN B12 BLOOD 3. Residual schizophrenia (HCC) - ICD9: 295.60, ICD10: F20.5 Cont meds per psych. 4. Blurry vision, bilateral - ICD9: 368.8, ICD10: H53.8 Unclear timeline, but will call pt's fiscal specialist to get seen urgently. 5. BP lower in office today but pt denied any dizziness/ lightheadedness. Orthos (-) though his HR did go up from sitting to standing. D/w neva to encourage his PO intake especially fluid intake. Also will discuss with pt's POA - Mr. Cole regarding SNF placement. POA was informed by the physician at the time of discharge from the hospital that the patient would be a candidate for SNF placement. But at that time it was thought that the patient was doing better and may be able to return to the skilled nursing. But as stated above skilled nursing is not able to provide all the care and it will be best for the pt to be at a SNF. Discussed above plan with patient and caregiver - Neva. They are agreeable with above plan. Addendum - spoke with [facility] - appt arranged for 11/15/17 at 10 AM at cable office - information communicated to Neva and PHUONG. Spoke with Mr. Cole (POA) - conveyed above information, he is agreeable to getting pt placed at SNF. He will make arrangements and contact my office for any further information or assistance. David Hidalgo MD This note was partially generated using [employer] voice recognition system, and there may be some incorrect words, spellings, and punctuation that were not noted in checking the note before saving. Brigid Villaseñor LPN 11/12/2017 10:11 AM Signed Pt and home care customer service representative are here to discuss moving the pt into a group home. Pt seems to comprehend the subject, states he is unable to take care of himself anymore. JESUS Mosqueda MD 11/12/2017 11:06 AM Signed Monitor BP daily at the skilled nursing, keep a log and bring the readings in for the next visit. Please touch base with Dr. Holder, Dr. Reyes. Needs urgent appt with Dr. Castillo ( eye doctor) for blurry vision. Referring Provider: SELF [[id number]] Allergies As of Date: 11/12/2017 Noted Allergy Reaction GOOSE FEATHERS ALLERGENIC EXTRACT 11/08/2016 16 - Unknown ZYPREXA (OLANZAPINE) 11/08/2016 16 - Unknown Date Reviewed: 11/12/2017 Reviewed by: Brigid Villaseñor - Fully Assessed Reason for Visit: Discussion [813] Cmt: group home option Primary Visit Diagnosis:Other drug-induced secondary parkinsonism (HCC) [G21.19] Other Visit Diagnoses:B12 deficiency [E53.8] Residual schizophrenia (HCC) [F20.5] Blurry vision, bilateral [H53.8] Order(s):VITAMIN B12 BLOOD [SQB12] Order #: [id number] FUTURE BASIC METABOLIC PNL [SQBMP] Order #: [id number] FUTURE Prescriptions as of 11/12/2017 Sig: CARBIDOPA 25 MG-LEVODOPA 100 * Take 1.5 tablets by mouth thr* AMANTADINE HCL 100 MG CAPSULE Take 1 capsule by mouth twice* QUETIAPINE 50 MG TABLET Take 1 tablet by mouth twice * CHOLECALCIFEROL (VITAMIN D3) * Take 1,000 Units by mouth onc* DONEPEZIL 23 MG TABLET Take 1 tablet by mouth daily * Problem List As Of Date 11/12/2017 Noted Resolved B12 deficiency [E53.8] INVALID FOR* Tremors of nervous system [R25.1] INVALID FOR*09/08/2017 More... Trouble swallowing [R13.10] INVALID FOR* More... Severe protein-calorie malnutrition (HCC) [E43] INVALID FOR* Urinary retention [R33.9] INVALID FOR* Parkinsonism (HCC) [G20] INVALID FOR* Schizophrenia (HCC) [F20.9] INVALID FOR* Extrapyramidal reaction [G25.9] INVALID FOR* Mild protein-calorie malnutrition (HCC) [E44.1] INVALID FOR* Notes for Staff Discussed this visit Other instructions from your clinician: Monitor BP daily at the skilled nursing, keep a log and bring the readings in for the next visit. Please touch base with Dr. Holder, Dr. Reyes. Needs urgent appt with Dr. Csatillo ( eye doctor) for blurry vision. Visit Notes: >> Brigid Villaseñor FriNov 12, 2017 10:10 AM Status: Signed Pt and home care customer service representative are here to discuss moving the pt into a group home. Pt seems to comprehend the subject, states he is unable to take care of himself anymore. Brigid Villaseñor LPN Follow Up: Discussed this visit Disposition: Return in about 4 weeks (around 12/10/2017), or if symptoms worsen or fail to improve. Follow-up and Disposition History Recorded Encounter Status:Closed by MD DAVID HIDALGO on 11/13/17 PROGRESS Observed: 10/16/2017 Status: COMPLETED Source: [place] 9:26 AM [facility] REPOSITORY HNO ID: [id number] Author: Deirdre Reyes Service: (none) Author Type: Physician Type: Progress Notes Filed: 10/19/2017 4:19 PM Note Text: Previous records (physician notes, laboratory reports, and radiology reports) and imaging studies were reviewed and summarized as below. My recommendations will be communicated back to the patient's primary care physician and/or consulting physician(s) by way of shared medical record or letter via US mail. Thank you for allowing me to contribute to the care of your patient. REFERRING PHYSICIAN: David Hidalgo MD [address] [facility] [address] PCP: [address] [place] [address] / [facility] [id number] Accompanied by: Caregiver from skilled nursing, has known him 10 years CC: tremor HxCC: 72 year old male with history significant for schizophrenia, who presents for evaluation of tremor/parkinsonism. Initial symptoms and onset: skilled nursing resident. Has had tremors for 10 years or more. In May started decompensating. Was falling. Tremors became much worse. Was on Haldol at the time. Hospitalized in August. Medications adjusted and he is better. Current status: tremors better but not back to prior baseline. At rest, with action. Has weighted spoon. custodial not licensed to feed him. Lost weight since February when he was 209 lbs. Hard to get food in his mouth. Balance is off when lightheaded. Has not fallen since home from hospital. custodial has limited capabilities. Should he fall more he cannot stay there. Non motor parkinsonism symptoms Loss of sense of smell: yes? Hypomimia: little Hypophonia: no Neuropsychiatric symptoms; Depress mood/anxiety: stable. Poor insight. Very judaism and found in driveway praying at times. Unclear if hallucinating or now. Impaired Memory/Cognitive: difficulty reading. Sees retinal specialist, has gotten injections in the eye years ago. States memory not good. Hallucination: no? 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 Better Swallowing: was worse before August. Couple of episodes since then. With solids. Bites are too big. Orthostatic hypotension symptoms: occasionally. Doesn't drink much water. Treatment History: Response to levodopa: ? Probably not Current regimen is as below. Sinemet 25/100 2 tabs TID 09/12- hospital discharge benztropine and Haldol stopped. New meds- amantadine and Seroquel 08/06- Haldol started. Geodon and amantadine stopped. 3/21 Geodon increased and amantadine started 05/20- Risperdal stopped. Geodon started Other PD medications tried: Requip?- listed in Epic but not on caregiver records or outside med dispense report RECENT LABS: Component Latest Ref Rng AND Units 09/03/2017 09/07/2017 09/08/2017 Glucose 74 - 99 mg/dL 99 BUN 9 - 24 mg/dL 9 Creatinine 0.73 - 1.22 mg/dL 0.59 (L) Sodium 136 - 144 mmol/L 138 Potassium 3.7 - 5.1 mmol/L 3.8 Chloride 97 - 105 mmol/L 98 CO2 22 - 30 mmol/L 30 Anion Gap 9 - 18 mmol/L 10 Calcium 8.5 - 10.2 mg/dL 8.8 eGFR- >60 eGFR-All Other Races . >60 WBC 3.70 - 11.00 k/uL 7.11 RBC 4.20 - 6.00 m/uL 4.51 Hemoglobin 13.0 - 17.0 g/dL 14.7 Hematocrit 39.0 - 51.0 % 43.4 MCV 80.0 - 100.0 fL 96.2 MCH 26.0 - 34.0 pG 32.6 MCHC 30.5 - 36.0 g/dL 33.9 RDW-CV 11.5 - 15.0 % 12.1 Platelet Count 150 - 400 k/uL 218 MPV 9.0 - 12.7 fL 9.1 Cholesterol, Total <200 mg/dL 154 Triglyceride <150 mg/dL 96 HDL Cholesterol >39 mg/dL 37 (L) LDL Calculated <100 mg/dL 98 Non HDL Cholesterol <130 mg/dL 117 Fasting Time hrs Unknown VLDL Cholesterol <30 mg/dL 19 TC:HDL Ratio <5.10 4.16 LDL:HDL Ratio <2.54 2.65 (H) Hemoglobin A1C 4.3 - 5.6 % 4.8 Estimated Average Glucose mg/dL 91 TSH 0.400 - 5.500 uU/mL 2.430 Magnesium 1.7 - 2.3 mg/dL 2.0 RECENT IMAGING/DIAGNOSTICS: --CT Brain wo contrast (07/30/2017): Post-operative change: ?None. ? Acute change: ? No evidence of an acute infarct or other acute parenchymal process. ? Hemorrhage: ? ?No evidence of acute intracranial hemorrhage. ? Mass Lesion / Mass Effect: ? There is no evidence of an intracranial mass or extraaxial fluid collection. ?No significant mass effect. ? Chronic change: ? None apparent. ? Parenchyma: ?There is no significant volume loss. ?The brain parenchyma is otherwise within normal limits for age. ? Ventricles: ? The ventricles are within normal limits of size and configuration for age. ? Paranasal sinuses and skull base: ?The visualized paranasal sinuses are grossly clear. ? ?The skull base and imaged soft tissues are unremarkable. ? ? ? IMPRESSION: ? ? ? 1. ?No evidence of acute intracranial abnormality. PMH: PAST MEDICAL HISTORY Diagnosis Date - Actinic keratosis - Breast lump LT breast; cavernous hemangioma/excised - Dizziness - Epidermoid cyst of skin - Falls - Lipoma of skin forearms and abdomen - Mammogram abnormal suspicious of cancer- referral made - Obesity - On upper doubler drug therapy - Palpitations - Parkinson disease (HCC) - Schizophrenia (HCC) - Tremor - Vitamin D deficiency PSH: PAST SURGICAL HISTORY Procedure Laterality Date - NONE CURRENT MEDS: Current Outpatient Prescriptions: amantadine HCl (SYMMETREL) 100 mg capsule Take 1 capsule by mouth twice daily. QUEtiapine (SEROQUEL) 50 mg tablet Take 1 tablet by mouth twice daily. cholecalciferol (VITAMIN D) 1,000 unit tab tablet Take 1,000 Units by mouth once daily. carbidopa-levodopa (SINEMET) 25-100 mg per tablet Take 2 tablets by mouth three times daily. Donepezil 23 mg tab Take 1 tablet by mouth daily at bedtime. No current facility-administered medications for this visit. ALLERGIES: ALLERGIES Allergen Reactions - Goose Feathers Allen* Unknown - Zyprexa [Olanzapine] Unknown FMH: FAMILY HISTORY Problem Relation Age of Onset - Family history unknown: Yes SOCIAL: Social History Marital status: Single Spouse name: Years of education: Number of children: Social History Main Topics Smoking status: Former Smoker Packs/day: 0.00 Years: 0.00 Smokeless tobacco: Never Used Alcohol use: No Drug use: No Other Topics Concern Caffeine Concern No Comment:none noted Special Diet Not Asked Comment:none noted Exercise Not Asked Comment:none noted REVIEW OF SYSTEMS (In addition to HPI): Review of Systems Constitutional Positive for Weight Loss Negative for Fevers, Night Sweats, Weight Gain and Fatigue Eyes Positive for Change in vison not corrected by glasses and Vision loss or change Hent Positive for Difficulty Swallowing Negative for Hearing Loss, Tinnitus and Recent change in speech or voice Cardiovascular Positive for Lightheadedness Negative for Chest Pain and Leg pain with walking Respiratory: Negative GI: Negative : Negative Endocrine: Negative Musculoskeletal: Negative Integumentary: Negative Heme/Lymph: Negative Allergy/Immunologic: Negative Neurologic Positive for Memory Problems and Trouble Swallowing Negative for Headache, Numbness/Tingling, Weakness, Double Vision and Slurred Speech Psychiatric: Negative Patient's Review of Systems has been reviewed with the patient and updated as appropriate. PHYSICAL EXAM: Wt 78.9 kg (174 lb) SpO2 98% BMI 24.61 kg/m? BP w/Orthostatic Vitals Date and Time Orthostatic BP Orthostatic Pulse BP Pulse BP Position BP Site BP Cuff Size 10/16/17 0914 92/61 81 -- -- Standing Left Arm Regular Adult 10/16/17 0909 103/60 72 -- -- Sitting Left Arm Regular Adult GEN: Alert. NAD. Quiet affect. Cooperative. HEENT: No icterus. Normal mucosa. NECK/BACK: Supple RESP: easy respirations CV: no edema EXT: No cyanosis. No erythema. SKIN: No rashes. No lesions. NEUROLOGICAL: MENTAL STATUS: Alert and oriented. Thought process and content unremarkable. Follows commands appropriately. Speech fluent. CN: II: PERRLA. III, IV, : EOMI. No ptosis present. V: Symmetric facial sensation to LT. VII: Face symmetric. VIII: Hearing symmetric. No nystagmus. IX, X: Symmetric palatal rise. XI: Symmetric shoulder shrug. XII: Tongue midline with symmetric movements. MOTOR: RIGHT UE: LEFT UE Deltoid 5/5 Deltoid 5/5 Biceps 5/5 Biceps 5/5 WE 5/5 WE 5/5 RIGHT LE: LEFT LE: HF 5/5 HF 5/5 KF 5/5 KF 5/5 DF 5/5 DF 5/5 REFLEXES: UE and LE reflexes are equal and reactive. SENSATION: Vibration intact and symmetric. CEREBELLAR: Normal F-N-F.No dysmetria. No nystagmus. MOVEMENT EXAM: Movement disorders examination: To quantify parkinsonism, Part III of the MDS-Unified Parkinson?s Disease Rating Scale was performed and detailed in the succeeding sections in this report. Please see the neurological health status section or the next paragraph for details. Each item is scored from 0 to 4. In general, a score of 0 means normal; 1 means mild; 2 means moderate; 3 means moderate to severe; 4 means severe. Motor UPDRS SPEECH ON 2 FACIAL EXPRESSION ON 2 REST TREMOR - CRANIAL ON 0 REST TREMOR - HANDS RT ON 1 REST TREMOR - HANDS LT ON 1 REST TREMOR - FEET RT ON 0 REST TREMOR - FEET LT ON 0 ACTION TREMOR - RT ON 2 ACTION TREMOR - LT ON 2 RIGIDITY - NECK ON 0 RIGIDITY - UE - RT ON 0 RIGIDITY - UE - LT ON 0 RIGIDITY - LE - RT ON 0 RIGIDITY - LE - LT ON 0 FINGER TAPS - RT ON 0 FINGER TAPS - LT ON 0 HAND DIRECTOR COMMUNITY ORGANIZATION - RT ON 0 HAND DIRECTOR COMMUNITY ORGANIZATION - LT ON 0 PRONATE/SUPINATE - RT ON 0 PRONATE/SUPINATE - LT ON 0 LEG AGILITY - RT ON 0 LEG AGILITY - LT ON 0 ARISE FROM CHAIR ON 0 POSTURE ON 0 GAIT ON 0 BODY BRADYKINESIA ON 0 ASSESSMENT: 72 year old male with history significant for schizophrenia, with parkinsonism, 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 Seems parkinsonism just started in May. Seems to have coincided with changes in neuroleptic medications and worsened on Haldol. Now on Seroquel which is less likely to cause parkinsonism. Can take several months off offending medication for drug-induced parkinsonism to resolve. Unclear response to Sinemet, likely has not. Recommend tapering off. custodial caregiver hesitant to make any changes too quickly since if he were to need more assistance he would not be able to stay there based on the level of care they are licensed to provide. Will reduce to Sinemet 25/100 1.5 tabs TID for now. ---> Follow-up: 3 months Deirdre Reyes M.D. [facility] [place] Department [facility] cc: David Hidalgo MD [address] [facility] [id number] [address] / [facility] [address] CNOV Observed: 10/16/2017 Status: COMPLETED Source: [place] 8:40 AM [facility] REPOSITORY Office Visit (NEURMM) ADRIENSHERITA ([id number]) 1945 M Date Time Provider Department 10/16/17 8:40 AM DEIRDRE REYES During your visit today, we recorded the following information about you: Weight 78.9 kg Deirdre Reyes MD 10/19/2017 4:19 PM Signed Previous records (physician notes, laboratory reports, and radiology reports) and imaging studies were reviewed and summarized as below. My recommendations will be communicated back to the patient's primary care physician and/or consulting physician(s) by way of shared medical record or letter via US mail. Thank you for allowing me to contribute to the care of your patient. REFERRING PHYSICIAN: David Hidalgo MD [address] [facility] [address] PCP: [address] [place] [address] / [facility] [address] Accompanied by: Caregiver from skilled nursing, has known him 10 years CC: tremor HxCC: 72 year old male with history significant for schizophrenia, who presents for evaluation of tremor/parkinsonism. Initial symptoms and onset: skilled nursing resident. Has had tremors for 10 years or more. In May started decompensating. Was falling. Tremors became much worse. Was on Haldol at the time. Hospitalized in August. Medications adjusted and he is better. Current status: tremors better but not back to prior baseline. At rest, with action. Has weighted spoon. custodial not licensed to feed him. Lost weight since February when he was 209 lbs. Hard to get food in his mouth. Balance is off when lightheaded. Has not fallen since home from hospital. custodial has limited capabilities. Should he fall more he cannot stay there. Non motor parkinsonism symptoms Loss of sense of smell: yes? Hypomimia: little Hypophonia: no Neuropsychiatric symptoms; Depress mood/anxiety: stable. Poor insight. Very judaism and found in driveway praying at times. Unclear if hallucinating or now. Impaired Memory/Cognitive: difficulty reading. Sees retinal specialist, has gotten injections in the eye years ago. States memory not good. Hallucination: no? 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 Better Swallowing: was worse before August. Couple of episodes since then. With solids. Bites are too big. Orthostatic hypotension symptoms: occasionally. Doesn't drink much water. Treatment History: Response to levodopa: ? Probably not Current regimen is as below. Sinemet 25/100 2 tabs TID 09/12- hospital discharge benztropine and Haldol stopped. New meds- amantadine and Seroquel 08/06- Haldol started. Geodon and amantadine stopped. 07/02 Geodon increased and amantadine started 05/20- Risperdal stopped. Geodon started Other PD medications tried: Requip?- listed in Epic but not on caregiver records or outside med dispense report RECENT LABS: Component Latest Ref Rng AND Units 09/03/2017 09/07/2017 09/08/2017 Glucose 74 - 99 mg/dL 99 BUN 9 - 24 mg/dL 9 Creatinine 0.73 - 1.22 mg/dL 0.59 (L) Sodium 136 - 144 mmol/L 138 Potassium 3.7 - 5.1 mmol/L 3.8 Chloride 97 - 105 mmol/L 98 CO2 22 - 30 mmol/L 30 Anion Gap 9 - 18 mmol/L 10 Calcium 8.5 - 10.2 mg/dL 8.8 eGFR- >60 eGFR-All Other Races . >60 WBC 3.70 - 11.00 k/uL 7.11 RBC 4.20 - 6.00 m/uL 4.51 Hemoglobin 13.0 - 17.0 g/dL 14.7 Hematocrit 39.0 - 51.0 % 43.4 MCV 80.0 - 100.0 fL 96.2 MCH 26.0 - 34.0 pG 32.6 MCHC 30.5 - 36.0 g/dL 33.9 RDW-CV 11.5 - 15.0 % 12.1 Platelet Count 150 - 400 k/uL 218 MPV 9.0 - 12.7 fL 9.1 Cholesterol, Total <200 mg/dL 154 Triglyceride <150 mg/dL 96 HDL Cholesterol >39 mg/dL 37 (L) LDL Calculated <100 mg/dL 98 Non HDL Cholesterol <130 mg/dL 117 Fasting Time hrs Unknown VLDL Cholesterol <30 mg/dL 19 TC:HDL Ratio <5.10 4.16 LDL:HDL Ratio <2.54 2.65 (H) Hemoglobin A1C 4.3 - 5.6 % 4.8 Estimated Average Glucose mg/dL 91 TSH 0.400 - 5.500 uU/mL 2.430 Magnesium 1.7 - 2.3 mg/dL 2.0 RECENT IMAGING/DIAGNOSTICS: --CT Brain wo contrast (07/30/2017): Post-operative change: ?None. ? Acute change: ? No evidence of an acute infarct or other acute parenchymal process. ? Hemorrhage: ? ?No evidence of acute intracranial hemorrhage. ? Mass Lesion / Mass Effect: ? There is no evidence of an intracranial mass or extraaxial fluid collection. ?No significant mass effect. ? Chronic change: ? None apparent. ? Parenchyma: ?There is no significant volume loss. ?The brain parenchyma is otherwise within normal limits for age. ? Ventricles: ? The ventricles are within normal limits of size and configuration for age. ? Paranasal sinuses and skull base: ?The visualized paranasal sinuses are grossly clear. ? ?The skull base and imaged soft tissues are unremarkable. ? ? ? IMPRESSION: ? ? ? 1. ?No evidence of acute intracranial abnormality. PMH: PAST MEDICAL HISTORY Diagnosis Date - Actinic keratosis - Breast lump LT breast; cavernous hemangioma/excised - Dizziness - Epidermoid cyst of skin - Falls - Lipoma of skin forearms and abdomen - Mammogram abnormal suspicious of cancer- referral made - Obesity - On retirement drug therapy - Palpitations - Parkinson disease (HCC) - Schizophrenia (HCC) - Tremor - Vitamin D deficiency PSH: PAST SURGICAL HISTORY Procedure Laterality Date - NONE CURRENT MEDS: Current Outpatient Prescriptions: amantadine HCl (SYMMETREL) 100 mg capsule Take 1 capsule by mouth twice daily. QUEtiapine (SEROQUEL) 50 mg tablet Take 1 tablet by mouth twice daily. cholecalciferol (VITAMIN D) 1,000 unit tab tablet Take 1,000 Units by mouth once daily. carbidopa-levodopa (SINEMET) 25-100 mg per tablet Take 2 tablets by mouth three times daily. Donepezil 23 mg tab Take 1 tablet by mouth daily at bedtime. No current facility-administered medications for this visit. ALLERGIES: ALLERGIES Allergen Reactions - Goose Feathers Allen* Unknown - Zyprexa [Olanzapine] Unknown FMH: FAMILY HISTORY Problem Relation Age of Onset - Family history unknown: Yes SOCIAL: Social History Marital status: Single Spouse name: Years of education: Number of children: Social History Main Topics Smoking status: Former Smoker Packs/day: 0.00 Years: 0.00 Smokeless tobacco: Never Used Alcohol use: No Drug use: No Other Topics Concern Caffeine Concern No Comment:none noted Special Diet Not Asked Comment:none noted Exercise Not Asked Comment:none noted REVIEW OF SYSTEMS (In addition to HPI): Review of Systems Constitutional Positive for Weight Loss Negative for Fevers, Night Sweats, Weight Gain and Fatigue Eyes Positive for Change in vison not corrected by glasses and Vision loss or change Hent Positive for Difficulty Swallowing Negative for Hearing Loss, Tinnitus and Recent change in speech or voice Cardiovascular Positive for Lightheadedness Negative for Chest Pain and Leg pain with walking Respiratory: Negative GI: Negative : Negative Endocrine: Negative Musculoskeletal: Negative Integumentary: Negative Heme/Lymph: Negative Allergy/Immunologic: Negative Neurologic Positive for Memory Problems and Trouble Swallowing Negative for Headache, Numbness/Tingling, Weakness, Double Vision and Slurred Speech Psychiatric: Negative Patient's Review of Systems has been reviewed with the patient and updated as appropriate. PHYSICAL EXAM: Wt 78.9 kg (174 lb) SpO2 98% BMI 24.61 kg/m? BP w/Orthostatic Vitals Date and Time Orthostatic BP Orthostatic Pulse BP Pulse BP Position BP Site BP Cuff Size 10/16/17 0914 92/61 81 -- -- Standing Left Arm Regular Adult 10/16/17 0909 103/60 72 -- -- Sitting Left Arm Regular Adult GEN: Alert. NAD. Quiet affect. Cooperative. HEENT: No icterus. Normal mucosa. NECK/BACK: Supple RESP: easy respirations CV: no edema EXT: No cyanosis. No erythema. SKIN: No rashes. No lesions. NEUROLOGICAL: MENTAL STATUS: Alert and oriented. Thought process and content unremarkable. Follows commands appropriately. Speech fluent. CN: II: PERRLA. III, IV, : EOMI. No ptosis present. V: Symmetric facial sensation to LT. VII: Face symmetric. VIII: Hearing symmetric. No nystagmus. IX, X: Symmetric palatal rise. XI: Symmetric shoulder shrug. XII: Tongue midline with symmetric movements. MOTOR: RIGHT UE: LEFT UE Deltoid 5/5 Deltoid 5/5 Biceps 5/5 Biceps 5/5 WE 5/5 WE 5/5 RIGHT LE: LEFT LE: HF 5/5 HF 5/5 KF 5/5 KF 5/5 DF 5/5 DF 5/5 REFLEXES: UE and LE reflexes are equal and reactive. SENSATION: Vibration intact and symmetric. CEREBELLAR: Normal F-N-F.No dysmetria. No nystagmus. MOVEMENT EXAM: Movement disorders examination: To quantify parkinsonism, Part III of the MDS-Unified Parkinson?s Disease Rating Scale was performed and detailed in the succeeding sections in this report. Please see the neurological health status section or the next paragraph for details. Each item is scored from 0 to 4. In general, a score of 0 means normal; 1 means mild; 2 means moderate; 3 means moderate to severe; 4 means severe. Motor UPDRS SPEECH ON 2 FACIAL EXPRESSION ON 2 REST TREMOR - CRANIAL ON 0 REST TREMOR - HANDS RT ON 1 REST TREMOR - HANDS LT ON 1 REST TREMOR - FEET RT ON 0 REST TREMOR - FEET LT ON 0 ACTION TREMOR - RT ON 2 ACTION TREMOR - LT ON 2 RIGIDITY - NECK ON 0 RIGIDITY - UE - RT ON 0 RIGIDITY - UE - LT ON 0 RIGIDITY - LE - RT ON 0 RIGIDITY - LE - LT ON 0 FINGER TAPS - RT ON 0 FINGER TAPS - LT ON 0 HAND DIRECTOR COMMUNITY ORGANIZATION - RT ON 0 HAND DIRECTOR COMMUNITY ORGANIZATION - LT ON 0 PRONATE/SUPINATE - RT ON 0 PRONATE/SUPINATE - LT ON 0 LEG AGILITY - RT ON 0 LEG AGILITY - LT ON 0 ARISE FROM CHAIR ON 0 POSTURE ON 0 GAIT ON 0 BODY BRADYKINESIA ON 0 ASSESSMENT: 72 year old male with history significant for schizophrenia, with parkinsonism, 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 Seems parkinsonism just started in May. Seems to have coincided with changes in neuroleptic medications and worsened on Haldol. Now on Seroquel which is less likely to cause parkinsonism. Can take several months off offending medication for drug-induced parkinsonism to resolve. Unclear response to Sinemet, likely has not. Recommend tapering off. custodial caregiver hesitant to make any changes too quickly since if he were to need more assistance he would not be able to stay there based on the level of care they are licensed to provide. Will reduce to Sinemet 25/100 1.5 tabs TID for now. ---> Follow-up: 3 months Deirdre Reyes M.D. [facility] [place] Department [facility] cc: David Hidalgo MD [address] [facility] [address] [address] [facility] / [facility] [address] Deirdre Reyes MD 10/16/2017 10:04 AM Signed Please reduce Sinemet (carbidopa/levodopa) to 1.5 tabs 3 times daily. 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] Other Visit Diagnosis:Residual schizophrenia (HCC) [F20.5] Order(s):carbidopa-levodopa (SINEMET) 25-100 mg per tabletTake 1.5 tablets by mouth three times daily.Disp: 135 tabletRfl: 11 Prescriptions as of 10/16/2017 Sig: CARBIDOPA 25 MG-LEVODOPA 100 * Take 1.5 tablets by mouth thr* AMANTADINE HCL 100 MG CAPSULE Take 1 capsule by mouth twice* QUETIAPINE 50 MG TABLET Take 1 tablet by mouth twice * CHOLECALCIFEROL (VITAMIN D3) * Take 1,000 Units by mouth onc* DONEPEZIL 23 MG TABLET Take 1 tablet by mouth daily * Problem List As Of Date 10/16/2017 Noted Resolved B12 deficiency [E53.8] INVALID FOR* Tremors of nervous system [R25.1] INVALID FOR*09/08/2017 More... Trouble swallowing [R13.10] INVALID FOR* More... Severe protein-calorie malnutrition (HCC) [E43] INVALID FOR* Urinary retention [R33.9] INVALID FOR* Parkinsonism (HCC) [G20] INVALID FOR* Schizophrenia (HCC) [F20.9] INVALID FOR* Extrapyramidal reaction [G25.9] INVALID FOR* Mild protein-calorie malnutrition (HCC) [E44.1] INVALID FOR* Other instructions from your clinician: Please reduce Sinemet (carbidopa/levodopa) to 1.5 tabs 3 times daily. Prescriptions ordered this encounter Disp Refills Start End CARBIDOPA 25 MG-LEVODOPA 100 MG TABL* 135 * 11 10/16/2017 10/16/2018 Route: ORAL Sig: Take 1.5 tablets by mouth three times daily. Medications Discontinued During This Encounter amantadine HCl (SYMMETREL) 100 mg ta* 2 ta* 0 09/12/2017 10/16/2017 Route: ORAL Sig: Take 1 tablet by mouth twice daily. Disc: Duplicate Entry nicotine polacrilex (NICORETTE) 2 mg* 30 E* 0 09/12/2017 10/16/2017 Class: Print RX Route: ORAL Sig: Take 1 Each by mouth every 2 hours as needed. Disc: Erroneous entry QUEtiapine (SEROQUEL) 50 mg tablet 2 ta* 0 09/12/2017 10/16/2017 Route: ORAL Sig: Take 1 tablet by mouth twice daily. Disc: Duplicate Entry carbidopa-levodopa (SINEMET) 25-100 * 10/16/2017 Class: Historical Med Route: ORAL Sig: Take 2 tablets by mouth three times daily. Disc: Reason for discontinue is not on file. Disposition: Return in about 3 months (around 01/16/2018). Follow-up and Disposition History Recorded Questionnaire: UPDRS - MOTOR EXAMINATION ON SPEECH ON -> 2 FACIAL EXPRESSION ON -> 2 REST TREMOR - CRANIAL ON -> 0 REST TREMOR - HANDS RT ON -> 1 REST TREMOR - HANDS LT ON -> 1 REST TREMOR - FEET RT ON -> 0 REST TREMOR - FEET LT ON -> 0 ACTION TREMOR - RT ON -> 2 ACTION TREMOR - LT ON -> 2 RIGIDITY - NECK ON -> 0 RIGIDITY - UE - RT ON -> 0 RIGIDITY - UE - LT ON -> 0 RIGIDITY - LE - RT ON -> 0 RIGIDITY - LE - LT ON -> 0 FINGER TAPS - RT ON -> 0 FINGER TAPS - LT ON -> 0 HAND DIRECTOR COMMUNITY ORGANIZATION - RT ON -> 0 HAND DIRECTOR COMMUNITY ORGANIZATION - LT ON -> 0 PRONATE/SUPINATE - RT ON -> 0 PRONATE/SUPINATE - LT ON -> 0 LEG AGILITY - RT ON -> 0 LEG AGILITY - LT ON -> 0 ARISE FROM CHAIR ON -> 0 POSTURE ON -> 0 GAIT ON -> 0 BODY BRADYKINESIA ON -> 0 Encounter Status:Closed by DEIRDRE REYES MD on 10/19/17 THERAPY NT Observed: 09/12/2017 Status: COMPLETED Source: [place] 1:30 PM [facility] REPOSITORY HNO ID: [id number] Author: Bronwyn (Pt) Mauricio España Service: Physical Therapy Author Type: Physical Therapist Type: Therapy (PT/OT/Speech/Resp) Filed: 09/12/2017 3:28 PM Note Text: PHYSICAL THERAPY MISSED VISIT SERVICE DATE: 09/12/2017 SERVICE TIME: 1445 to 1446 ROOM: [place] [address] Attempted Treatment. Patient not seen due to Other: See Comment (discharged to skilled nursing). SIGNATURE: Bronwyn España, PT PATIENT NAME: Sherita Jurado DATE: September 12, 2017 TIME: 3:28 PM PAGER/CONTACT #: [phone] ] NURSING PROG Observed: 09/12/2017 Status: COMPLETED Source: [place] 1:18 PM [facility] REPOSITORY HNO ID: [id number] Author: Fara SpencerRn) JOSE Rogers Service: (none) Author Type: Registered Nurse Type: Nursing Progress Note Filed: 09/12/2017 1:22 PM Note Text: Nursing Progress Note Patient Name: Sherita Jurado Patient Location: [place] [address] [address]* Daily Note: Patient has been visible in the day area all shift. He is compliant with medications, taking them whole. He did participate in morning activity. He is A/O X3. He is seclusive to self. Gait is unsteady, uses a w/c to get around. Safety rounds maintained Q 15 minutes. Continue plan of care. This note was completed by: Fara Rogers RN NUTRITION Observed: 09/12/2017 Status: COMPLETED Source: [facility] 12:04 PM CL[facility] OTHER CAMPUS REPOSITORY HNO ID: [id number] Author: Lorna Chun Service: Nutrition Therapy Author Type: Registered Dietitian Type: Nutrition Filed: 09/12/2017 12:06 PM Note Text: NUTRITION THERAPY PROGRESS NOTE SERVICE DATE: 09/12/2017 SERVICE TIME: 9:00 AM RECOMMENDED DIAGNOSIS: MILD PROTEIN-CALORIE MALNUTRITION per Registered Dietitian on 09/09 NUTRITION CARE PLAN Intervention: 1. Continue on a Dental Soft diet as tolerated 2. Continue Ensure High Protein twice daily Monitor and Evaluation: Goal: Meet >75% of estimated needs Monitor fluid/electrolyte balance Monitor labs, I/Os, vital signs, weight Discharge Nutrition Recommendations: To be determined Interval History: patient reports he is eating >50% of his meals, feels he can manage eating on his own, enjoys drinking shakes. Present Diet Order: Food Consistency Controlled Dental Soft Admission Weight: 83.5 kg (184 lb) Current Weight: 76.8 kg (169 lb 4.8 oz) Body mass index is 23.94 kg/m?. normal Current Facility-Administered Medications: donepezil 20 mg tab(s) (ARICEPT) 20 mg ORAL AT BEDTIME QUEtiapine 50 mg tab(s) (SEROquel) 50 mg ORAL BID amantadine HCl 100 mg cap(s) (SYMMETREL) 100 mg ORAL BID carbidopa-levodopa 25-100 mg 2 tablet (SINEMET 25-100) 2 tablet ORAL TID cholecalciferol 1,000 Units tab(s) (VITAMIN D3) 1,000 Units ORAL DAILY ziprasidone 10 mg injection (GEODON) 10 mg INTRAMUSCULAR q 6 H PRN tamsulosin ER 0.4 mg cap(s) (FLOMAX) 0.4 mg ORAL AT BEDTIME traZODone 50 mg tab(s) (DESYREL) 50 mg ORAL HS PRN acetaminophen 650 mg tab(s) (TYLENOL) 650 mg ORAL q 6 H PRN nicotine polacrilex 2 mg gum (NICORETTE) 2 mg ORAL q 2 H PRN aluminum-magnesium hydroxide-simethicone 200-200-20 mg/5 mL 30 mL (MAALOX,MYLANTA,MAG-AL PLUS) 30 mL ORAL q 4 H PRN magnesium hydroxide 400 mg/5 mL 15 mL (MOM) 15 mL ORAL DAILY PRN Pressure Injury 09/07/17 1530 Buttock - Left (Active) Stage Injury 2 09/10/2017 7:00 PM Leather Stitcher Related Pressure Injury No 09/10/2017 7:00 PM Dressing Status Clean, Dry AND Intact 09/10/2017 7:00 PM Frequency of Dressing Change Every 3 Days 09/10/2017 7:00 PM Dressing Change Due 09/13/17 09/10/2017 7:00 PM Dressing/Treatment Type Foam- Non Adhesive 09/10/2017 7:00 PM Drainage Description None 09/10/2017 9:00 AM Drainage Amount None 09/10/2017 9:00 AM Odor No 09/10/2017 9:00 AM Wound Surface Color [place] 09/10/2017 9:00 AM Surrounding Skin Intact 09/10/2017 9:00 AM Number of days: 4 MNT Billing Type: Re-assess/15 min 2 units SIGNATURE: Lorna Chun RD PATIENT NAME: Sherita Jurado DATE: September 12, 2017 TIME: 12:04 PM PAGER: [phone] CASE MANAGEM Observed: 09/12/2017 Status: COMPLETED Source: [place] 12:00 PM CLINIC OTHER CAMPUS REPOSITORY HNO ID: [id number] Author: PEDRO Diggs (Sw) Service: Care Management Author Type: Mathematics Faculty Member Type: Care Mgt Progress Note Filed: 09/12/2017 12:10 PM Note Text: BEHAVIORAL HEALTH SOCIAL WORK DISCHARGE NOTE SERVICE DATE: 09/12/2017 SERVICE TIME: 12:01 PM PATIENT'S DISCHARGE PLAN: Discharge Disposition [facility] Address: [address] [place] [address] Guardian Name: Martha Govea (Bill)/guardian Psychiatry Follow-Up Appointment Psychiatrist Name: Dr. 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 Pt is returning to previous skilled nursing. 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 Discussion of financial coverage occurred with Guardian. PRESCRIPTIONS FILLED PRIOR TO DISCHARGE: Yes, [facility] in [place]. ADDITIONAL NOTES: Per attending psychiatrist, pt is cleared for d/c today. JOAO spoke to [place]/ digital marketing manager. Informed her of the next day delivery of meds with [facility] and the one day supply being sent to [facility]. Unit pharmacist spoke to [facility] regarding change in scripts and was provided description of medications that were discontinued. Document was written for to follow regarding continued/discontinued and new medications (JOAO made digital marketing manager aware of this). SIGNATURE: BRIELLE Diggs PATIENT NAME: Sherita Jurado DATE: September 12, 2017 TIME: 12:10 PM THERAPY NT Observed: 09/12/2017 Status: COMPLETED Source: [place] 11:07 AM [facility] OTHER [place] REPOSITORY HNO ID: [id number] Author: Bronwyn (Pt) Mauricio España Service: Physical Therapy Author Type: Physical Therapist Type: Therapy (PT/OT/Speech/Resp) Filed: 09/12/2017 11:07 AM Note Text: PHYSICAL THERAPY MISSED VISIT SERVICE DATE: 09/12/2017 SERVICE TIME: 1106 to 1106 ROOM: [place] [address] Attempted Treatment. Patient not seen due to Other: See Comment (discharge this date). SIGNATURE: Bronwyn España PT PATIENT NAME: Sherita Jurado DATE: September 12, 2017 TIME: 11:07 AM PAGER/CONTACT #: [phone] CNDS Observed: 09/12/2017 Status: COMPLETED Source: [place] 10:43 AM [facility] OTHER [place] REPOSITORY HNO ID: [id number] Author: Sophia Fontenot Service: Behavioral Health Author Type: Physician Type: Discharge Summaries Filed: 09/12/2017 11:47 AM Note Text: DISCHARGE SUMMARY BEHAVIORAL HEALTH PATIENT NAME: Sherita Jurado ADMISSION DATE: 09/07/2017 DISCHARGE DATE: 09/12/2017 ATTENDING PHYSICIAN: Sophia Fontenot REASON FOR HOSPITALIZATION: progressive decline in his daily functioning. DISCHARGE DIAGNOSIS: 1. PRIMARY: Schizophrenia Residual Type 2. parkinson's disease. 3. 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 GAF: -70-61 Some mild symptoms or some difficulty in social, occupational, or school functioning, but generally functioning pretty well. OPERATIONS DURING HOSPITALIZATION: None PROCEDURES DURING HOSPITALIZATION: No procedures performed HOSPITAL COURSE: pt was trasferred from a [place] home due to increased tremors and difficulty to care for his basic needs. pt have severe tremors and at times he gets frustrated with his tremors. He has history of schizophrenia and he was taking Haloperidol . Pt was taken off of the Haloperidol and was given Seroquel . Pt denied hallucinations or delusions while here. Pt has been symptom free for a while. Main issue was his Parkinson's disease . He was seen by Neurology and they recommended him to make apt at the Movement disorder clinic. Pt received medication for his Parkinsons disease. He receive physical therapy also. Pt has been able to do less and less over the last 3 months mainly because of his medical issues. Pt needs to follow up with the medical providers. Discussed his case with his group sales manager Diana and also his guardian. Pt is an appropriate candidate for group home placement . Guardian was made aware of the recommendation. LABS AND PROCEDURES PENDING AT DISCHARGE: No pending results. CONSULTING TEAMS DURING HOSPITALIZATION: Internal Medicine: routine follow up Neurology: for Parkinson's disease. PATIENT CONDITION AT DISCHARGE: Stable DISCHARGE DISPOSITION: skilled nursing with care. COMPLICATIONS: None At this time the patient has maximized his benefit from hospitalization.. The patient denies suicidal or homicidal ideation, intent or plan and is safe for discharge. The patient voices a readiness to transition back to his home setting and has agreed to our follow-up recommendations including medication compliance. SUBJECTIVE: Pt is calm most of the time. When he has increased tremors he gets restless. OBJECTIVE: Pt was co operative and appropriate on the unit. He is not psychotic. Not suicidal. Pt has low grade dementia also. Any PRN's required for agitation or anxiety since last encounter: No New problems on the unit since the last encounter: No Any new medication reactions since the last encounter: No BP 109/64 Pulse 72 Temp (Src) 98.6 (Oral) Resp 18 Ht 5' 10.512 (1.79m) Wt 169 lb 4.8 oz (76.8kg) SpO2 96% BMI 23.94 kg/(m2). MENTAL STATUS EXAM AT DISCHARGE: Appearance: Casually dressed Behavior: Appropriate Orientation: Person, Place, Time and Situation Speech/Language: Underproductive and Halting Mood/Affect: Appropriate Thought/Form: Coherent Thought Content: Coherent Suicidal Ideations: No suicidal ideation, intent or plan. Homicidal Ideations: No homicidal ideation, intent or plan. Insight: Fair Judgment: Limited Memory/Cognition: Mildly Impaired Psychomotor: Retarded GENERAL: Alert, no distress, cooperative SKIN: No gross abnormal findings HEART/LUNGS: No gross abnormal findings ABDOMEN: No gross abnormal findings NEUROLOGIC: Tremor of hands MUSCULOSKELETAL: Tremor of hands GAIT: Shuffling LABORATORY DATA: The laboratory/imaging results have been reviewed. Pertinent findings since the last assessment: No TREATMENT PLAN: 1. Biological Management: continue current medications. 2. Psychological Management Recommendations: supportive therapy. 3. Social Intervention Recommendations: milieu INFORMED CONSENT: completed by guardian. DISCHARGE MEDICATION: Current Discharge Medication List START taking these medications amantadine HCl (SYMMETREL) 100 mg Take 100 mg by mouth twice daily. Qty: 60 capsule Refills: 0 !! QUEtiapine (SEROquel) 50 mg Take 50 mg by mouth twice daily. Qty: 60 tablet Refills: 0 nicotine polacrilex (NICORETTE) 2 mg Take 2 mg by mouth every 2 hours as needed. Qty: 30 Each Refills: 0 amantadine HCl (SYMMETREL) 100 mg Take 100 mg by mouth twice daily. Qty: 2 tablet Refills: 0 !! QUEtiapine (SEROquel) 50 mg Take 50 mg by mouth twice daily. Qty: 2 tablet Refills: 0 !! - Potential duplicate medications found. Please discuss with provider. CONTINUE these medications which have NOT CHANGED cholecalciferol (VITAMIN D3) 1,000 Units Take 1,000 Units by mouth once daily. carbidopa-levodopa (SINEMET 25-100) 2 tablets Take 2 tablets by mouth three times daily. donepezil (ARICEPT) 1 tablet Take 1 tablet by mouth daily at bedtime. STOP taking these medications OTC PRODUCT 5 Drops Comments: Reason for Stopping: benztropine (COGENTIN) 2 mg Comments: Reason for Stopping: haloperidol (HALDOL) 5 mg Comments: Reason for Stopping: Is Patient Discharged on Two Active Antipsychotics? No INFORMATION PROVIDED TO PATIENT: Substance Abuse Information Given FUTURE APPOINTMENTS: Follow Up with as noted below Discharge Information Row Name Admission (Current) from 09/07/2017 in [facility] Psychiatry Follow-Up Appointment Psychiatrist Name Dr. Glory Mckinnon-Abelino [facility] Address and Phone# [address] [place] [address] / / Apppointment Date 10/10/17 Appointment Time 2:20PM Discharge Disposition Dis[facility] Address [address] [place] [id number] Guardian/Surrogate Decision Maker Name Martha Govea (Bill)/guardian TIME OF CARE: Discharge Management: I personally spent greater than 30 minutes involved in the discharge management of this patient. SIGNATURE: Sophia Fontenot MD PATIENT NAME: Sherita Jurado DATE: September 12, 2017 TIME: 10:44 AM PAGER/CONTACT #: [phone] NURSING PROG Observed: 09/12/2017 Status: COMPLETED Source: [facility] 2:12 AM CLINIC OTHER CAMPUS REPOSITORY O ID: [id number] Author: Nader SpencerRn) JOSE Patel Service: (none) Author Type: Registered Nurse Type: Nursing Progress Note Filed: 09/12/2017 6:46 AM Note Text: Nursing Progress Note Patient Name: Sherita Jurado Patient Location: [id number]/[facility]* Daily Note: Pt observed to be sleeping in bed, no signs of distress noted. No tremors noted as well. Turns and repositions in bed independently. Ambulates to the bathroom at times on his own. Routine rounding maintained. 0600 Slept for 8 hrs throughout the night. No issues presented. This note was completed by: Nader Patel RN NURSING PROG Observed: 09/11/2017 Status: COMPLETED Source: [facility] 10:21 PM [facility] REPOSITORY HNO ID: [id number] Author: Geraldine Watts) JOSE Worley Service: (none) Author Type: Registered Nurse Type: Nursing Progress Note Filed: 09/11/2017 10:25 PM Note Text: Nursing Progress Note Patient Name: Sherita Jurado Patient Location: [place] [address] [address]* Daily Note: Pt has been up and out in the day area. He is very pleasant on approach. Dressed well. Asks to use the bathroom and has been continent. Pt says he is so happy at how much better the tremors have gotten. He is able to feed himself and hold a cup of liquids. Pt very grateful that the medicine has helped so much. Ate well. Denies pain. Is alert and oriented x 3. Watching the [employer] game. Was compliant with all his medications whole. This note was completed by: Geraldine Worley RN CASE MANAGEM Observed: 09/11/2017 Status: COMPLETED Source: [facility] 5:06 PM [facility] REPOSITORY HNO ID: [id number] Author: PEDRO Diggs (Sw) Service: Care Management Author Type: Mathematics Faculty Member Type: Care Mgt Progress Note Filed: 09/11/2017 5:17 PM Note Text: BEHAVIORAL HEALTH SOCIAL WORK PROGRESS NOTE SERVICE DATE: 09/11/2017 SERVICE TIME: 5:06 PM Pt was skilled for SNF by PT on 09/09/2017 and covering attempted to call guardian and spoke to [facility] digital marketing manager Diana yesterday. They would have liked to place him directly into SNF. SW spoke to mell/Conrad Govea at [phone] regarding d/c planning and voluntary admission. Made him aware that pt's insurance is no longer covering his stay at and has not given any additional days to work out d/c plan. He does not want pt to accumalate a huge debt due to this stay and requested he be sent back to . SW informed him of the potential cost of ambulance if the digital marketing manager can not arrang etransport. He verbalized understanding. SW spoke to Diana/ manger [phone]. She informed SW that the CM at has been less then helpful in placement in facilities; that she has in the past navigated it herself and she may have to do so. SW gave her some pointers on how to navigate. She reported that pt has [facility] scripts and would need a supply of new medication for her local pharmacy and a script to be sent to [facility]. Per Diana she does not have transportation available tomorrow to p/u pt and requested transport to be arranged. SW to call her in the morning to follow up about scripts and transport. Transport has been arranged for Friday at 1:30PM. SIGNATURE: BRIELLE Diggs PATIENT NAME: Sherita Jurado DATE: September 11, 2017 TIME: 5:17 PM NURSING PROG Observed: 09/11/2017 Status: COMPLETED Source: [facility] 4:39 PM CLINIC OTHER CAMPUS REPOSITORY O ID: [id number] Author: Char Saleem (Rn) JOSE Zhang Service: (none) Author Type: Registered Nurse Type: Nursing Progress Note Filed: 09/11/2017 4:43 PM Note Text: Nursing Progress Note Patient Name: Sherita Jurado Patient Location: [place] [address] [address]* Daily Note: Patient this am was up in maritza chair in day area. His tremors have lessoned and he was able to fed himself breakfast and lunch. He is pleasant and denies SI and HI. No c/o pain. He took his medications whole with water and straw. No behavioral issues. He needs assistance with ADL's. Will monitor. This note was completed by: Char Zhang RN PROGRESS Observed: 09/11/2017 Status: COMPLETED Source: [facility] 10:19 AM CLINIC OTHER CAMPUS REPOSITORY O ID: [id number] Author: Sophia Fontenot Service: Behavioral Health Author Type: Physician Type: Progress Notes Filed: 09/11/2017 10:38 AM Note Text: PROGRESS NOTE BEHAVIORAL HEALTH SERVICE DATE: September 11, 2017 SERVICE TIME: 10:32 AM The Interdisciplinary team met and reviewed treatment goals and discharge planning. Subjective Pt was seen in the day area. His tremors are better. Pt also feels more at ease since the tremors are better. He still have tremors and needs to be evaluated further at the movement disorder clinic. Pt is not psychotic. Denied hallucinations or delusions. He is not depressed. Not suicidal. He has mild cognitive impairment. Discussed the case with his group sales manager Diana at [phone] She is concerned that his overall functioning has deteriorated over the last 3 months. He was choking on food. He was stumbling and unsteady . He has wt loss. Pt is not psychotic or a behavior problem on the unit. Pt would benefit from group home placement. He has case management services through [facility]. Called his guardian Mr Govea and left a detailed message regarding his condition and readiness for discharge. We are willing to find the group home placement for him but his days in the hospital are no longer covered by his insurance since he does not meet criteria for stay here. Sherita Jurado is a 71 year old single male with a history of Parkinson's Disease and Schizophrenia?referred by [facility]?medical unit?for transfer to an inpatient psychiatric unit. Patient was brought in via ambulance to [facility] ED on 09/03/2017 from his skilled nursing [facility] where he has lived for over 5 years with a chief complaint of progressively worsening tremors for over the past few months after patient's Risperdal was discontinued in April 2017. Patient had already been having tremors while on the Risperdal, but once it was discontinued the tremors actually worsened and he started having choking episodes while eating. Patient has lost 25lbs in 3 months. He has had many frequent falls and his ADLs are significantly impaired. 3 months ago patient was very independent and even engaged in exercise. Patient has decompensated well below baseline according to the skilled nursing and patient's legal guardian Conrad Govea whom has known patient for over 5 years. Patient is being referred to inpatient psychiatric due to his substantially impaired ability to care of his basic human needs. Patient denies SI/HI/AH/VH and displays no symptoms of odessa/psychosis. He is alert and oriented on all spheres and has been appropriate and cooperative on the medical unit. He requires the use of a gait belt?and assistance with all activities. ? Objective Tremors of hands. Eyes somewhat wide open ,no exophthalmos. Anxious looking. PHYSICAL EXAM: BP 101/75 Pulse 75 Temp 36.7 ?C (98.1 ?F) (Oral) Resp 20 Ht 179.1 cm (5' 10.51) Wt 76.8 kg (169 lb 4.8 oz) SpO2 93% BMI 23.94 kg/m? MENTAL STATUS EXAMINATION: Appearance: Casually dressed Behavior: restless,tremors ,anxious. Orientation: Person and Place Speech/Language: Underproductive and Halting Mood/Affect: Anxious Thought Form: Coherent Thought Content: Coherent Suicidal Ideations: No suicidal ideation, intent or plan. Homicidal Ideations: No homicidal ideation, intent or plan. Insight: Fair Judgment: Limited Memory/Cognition: Mildly Impaired Psychomotor: Tremors and Dyskinesias NEW PROBLEMS ON UNIT SINCE LAST ENCOUNTER: None Current hospital medications: donepezil 20 mg tab(s) (ARICEPT) 20 mg ORAL AT BEDTIME QUEtiapine 50 mg tab(s) (SEROquel) 50 mg ORAL BID amantadine HCl 100 mg cap(s) (SYMMETREL) 100 mg ORAL BID carbidopa-levodopa 25-100 mg 2 tablet (SINEMET 25-100) 2 tablet ORAL TID cholecalciferol 1,000 Units tab(s) (VITAMIN D3) 1,000 Units ORAL DAILY ziprasidone 10 mg injection (GEODON) 10 mg INTRAMUSCULAR q 6 H PRN tamsulosin ER 0.4 mg cap(s) (FLOMAX) 0.4 mg ORAL AT BEDTIME traZODone 50 mg tab(s) (DESYREL) 50 mg ORAL HS PRN acetaminophen 650 mg tab(s) (TYLENOL) 650 mg ORAL q 6 H PRN nicotine polacrilex 2 mg gum (NICORETTE) 2 mg ORAL q 2 H PRN aluminum-magnesium hydroxide-simethicone 200-200-20 mg/5 mL 30 mL (MAALOX,MYLANTA,MAG-AL PLUS) 30 mL ORAL q 4 H PRN magnesium hydroxide 400 mg/5 mL 15 mL (MOM) 15 mL ORAL DAILY PRN DATA: Diagnostic tests reviewed for today's visit: Most recent labs Assessment/Plan DIAGNOSIS: 1. PRIMARY: Schizophrenia Residual Type 2. tardive dyskinesia 3. Parkinson's disease 4. Mild cognitive impairment. GAF: -60-51 Moderate symptoms or moderate difficulty in social, occupational or school functioning. RISK ASSESSMENT: Suicide: low Homicide: low Deliberate Self-Harm: low Aggression: low Imminent Physical Self Impairment: high INFORMED CONSENT: see the chart. he has a guardian. EKG-- Diagnosis:SINUS RHYTHM WITH FUSION COMPLEXES POOR DATA QUALITY WHEN COMPARED WITH ECG OF 27-JUN-1998 08:09, FUSION COMPLEXES ARE NOW PRESENT NONSPECIFIC T WAVE ABNORMALITY, IMPROVED IN INFERIOR LEADS NONSPECIFIC T WAVE ABNORMALITY NO LONGER EVIDENT IN LATERAL LEADS QT HAS LENGTHENED Confirmed by MD Drew, Qarab ([id number]) on 09/04/2017 5:19:55 PM ? INTERVENTION: Biological: increase Seroquel 50 mg po bid. Psychological: support and encouragement. Social: encourage to participate in the milieu DISCHARGE PLANNING: Discharge by the end of the week. SIGNATURE: Sophia Fontenot MD PATIENT NAME: Sherita Jurado DATE: September 11, 2017 10:38 AM PAGER/CONTACT#: [phone] NURSING PROG Observed: 09/10/2017 Status: COMPLETED Source: [facility] 7:38 PM CLINIC OTHER CAMPUS REPOSITORY O ID: [id number] Author: Faby SpencerRn) JOSE Mays Service: Nursing Author Type: Registered Nurse Type: Nursing Progress Note Filed: 09/11/2017 6:13 AM Note Text: Nursing Progress Note Patient Name: Sherita Jurado Patient Location: [place] [address]/[facility]* Daily Note: 1930 assumed care of this pt. Pt in day area in rhonda chair, no distress noted, denies pain at this time. q 15 min safety checks. 2030 pt friendly cooperative med compliant, meds whole trazodone given for sleep 0000 pt sleeping in bed 0600 pt slept 7 hrs This note was completed by: Faby Mays RN CASE MANAGEM Observed: 09/10/2017 Status: COMPLETED Source: [facility] 3:47 PM CLINIC OTHER CAMPUS REPOSITORY HNO ID: [id number] Author: Mackenzie Ramirez (Lisw) Service: Social Work Author Type: Mathematics Faculty Member Type: Care Mgt Progress Note Filed: 09/10/2017 3:54 PM Note Text: BEHAVIORAL HEALTH SOCIAL WORK PROGRESS NOTE SERVICE DATE: 09/10/2017 SERVICE TIME: 3:47 PM Left several messages for pt's guardian Conrad Govea at [phone] to discuss current situation and plans. Also spoke with his skilled nursing machine heel builder Diana Pugh at [phone] who inquired about his status and would like a call from the Dr. Discussed probable discharge to a group home and sheis hoping that he can go to [facility] which is near the skilled nursing so they will be able to make frequent visits there. Called the facility at [phone] but nobody was available to talk to today. Social work to continueto follow and coordinate appropriate plans. SIGNATURE: BRIELLE Barriga PATIENT NAME: Sherita Jurado DATE: September 10, 2017 TIME: 3:47 PM ALLIED HEALTH Observed: 09/10/2017 Status: COMPLETED Source: [facility] 11:12 AM CLINIC OTHER [place] REPOSITORY HNO ID: [id number] Author: Luz BowerssMAINOR Plasencia Service: Recreational Therapy Author Type: Therapist Type: Allied Health Filed: 09/10/2017 11:15 AM Note Text: PROGRESS NOTE BEHAVIORAL HEALTH Topic of Note: Three Day Note SERVICE DATE: 09/10/2017 SERVICE TIME: 11:12 AM RT 3-day note: Patient has attended eight out of twelve structured groups. Patient has been visible on unit, up in rhonda-chair. Patient is pleasant and responsive to interaction when approached. Patient demonstrates positive effort during groups but does state his tremors and jerking movements make it hard for him to do things. Patient will continue to be encouraged to attend and participate in all structured groups working on increased socialization and increased coping skills. SIGNATURE: MAINOR Barajas PATIENT NAME: Sherita Jurado DATE: September 10, 2017 TIME: 11:12 AM PAGER/CONTACT #: PROGRESS Observed: 09/10/2017 Status: COMPLETED Source: [facility] 11:07 AM CLINIC OTHER CAMPUS REPOSITORY O ID: [id number] Author: Sophia Fontenot Service: Behavioral Health Author Type: Physician Type: Progress Notes Filed: 09/10/2017 11:12 AM Note Text: PROGRESS NOTE BEHAVIORAL HEALTH SERVICE DATE: September 10, 2017 SERVICE TIME: 11:08 AM The Interdisciplinary team met and reviewed treatment goals and discharge planning. Subjective Pt was seen in the day area. Noted that he has severe involuntary movements and his whole body and chair was shaking. He asked for help to open his milk. He is unable to do much by self. His speech was halting. He could not articulate as well as he did yesterday. Anxious looking . Needs assistance to ambulate. He is compliant with medicine. Unable to assess for thought disorder due to severe difficulty to communicate. He is anxious and restless. Plan to increase the Seroquel, to calm the anxiety and restlessness. Sherita Jurado is a 71 year old single male with a history of Parkinson's Disease and Schizophrenia?referred by [facility]?medical unit?for transfer to an inpatient psychiatric unit. Patient was brought in via ambulance to [place] ED on 09/03/2017 from his skilled nursing [facility] where he has lived for over 5 years with a chief complaint of progressively worsening tremors for over the past few months after patient's Risperdal was discontinued in April 2017. Patient had already been having tremors while on the Risperdal, but once it was discontinued the tremors actually worsened and he started having choking episodes while eating. Patient has lost 25lbs in 3 months. He has had many frequent falls and his ADLs are significantly impaired. 3 months ago patient was very independent and even engaged in exercise. Patient has decompensated well below baseline according to the skilled nursing and patient's legal guardian Conrad Govea whom has known patient for over 5 years. Patient is being referred to inpatient psychiatric due to his substantially impaired ability to care of his basic human needs. Patient denies SI/HI/AH/VH and displays no symptoms of odessa/psychosis. He is alert and oriented on all spheres and has been appropriate and cooperative on the medical unit. He requires the use of a gait belt?and assistance with all activities. ? Objective Tremors of hands. Eyes somewhat wide open ,no exophthalmos. Anxious looking. PHYSICAL EXAM: BP 109/60 Pulse 68 Temp 37.2 ?C (98.9 ?F) (Oral) Resp 16 Ht 179.1 cm (5' 10.51) Wt 76.8 kg (169 lb 4.8 oz) SpO2 96% BMI 23.94 kg/m? MENTAL STATUS EXAMINATION: Appearance: Casually dressed Behavior: restless,tremors ,anxious. Orientation: Person and Place Speech/Language: Underproductive and Halting Mood/Affect: Anxious Thought Form: Coherent Thought Content: Coherent Suicidal Ideations: No suicidal ideation, intent or plan. Homicidal Ideations: No homicidal ideation, intent or plan. Insight: Fair Judgment: Limited Memory/Cognition: Mildly Impaired Psychomotor: Tremors and Dyskinesias NEW PROBLEMS ON UNIT SINCE LAST ENCOUNTER: None Current hospital medications: donepezil 20 mg tab(s) (ARICEPT) 20 mg ORAL AT BEDTIME QUEtiapine 25 mg tab(s) (SEROquel) 25 mg ORAL BID amantadine HCl 100 mg cap(s) (SYMMETREL) 100 mg ORAL BID carbidopa-levodopa 25-100 mg 2 tablet (SINEMET 25-100) 2 tablet ORAL TID cholecalciferol 1,000 Units tab(s) (VITAMIN D3) 1,000 Units ORAL DAILY ziprasidone 10 mg injection (GEODON) 10 mg INTRAMUSCULAR q 6 H PRN tamsulosin ER 0.4 mg cap(s) (FLOMAX) 0.4 mg ORAL AT BEDTIME traZODone 50 mg tab(s) (DESYREL) 50 mg ORAL HS PRN acetaminophen 650 mg tab(s) (TYLENOL) 650 mg ORAL q 6 H PRN nicotine polacrilex 2 mg gum (NICORETTE) 2 mg ORAL q 2 H PRN aluminum-magnesium hydroxide-simethicone 200-200-20 mg/5 mL 30 mL (MAALOX,MYLANTA,MAG-AL PLUS) 30 mL ORAL q 4 H PRN magnesium hydroxide 400 mg/5 mL 15 mL (MOM) 15 mL ORAL DAILY PRN DATA: Diagnostic tests reviewed for today's visit: Most recent labs Assessment/Plan DIAGNOSIS: 1. PRIMARY: Schizophrenia Residual Type 2. tardive dyskinesia 3. Parkinson's disease 4. Mild cognitive impairment. GAF: -60-51 Moderate symptoms or moderate difficulty in social, occupational or school functioning. RISK ASSESSMENT: Suicide: low Homicide: low Deliberate Self-Harm: low Aggression: low Imminent Physical Self Impairment: high INFORMED CONSENT: see the chart. he has a guardian. Diagnosis:SINUS RHYTHM WITH FUSION COMPLEXES POOR DATA QUALITY WHEN COMPARED WITH ECG OF 27-JUN-1998 08:09, FUSION COMPLEXES ARE NOW PRESENT NONSPECIFIC T WAVE ABNORMALITY, IMPROVED IN INFERIOR LEADS NONSPECIFIC T WAVE ABNORMALITY NO LONGER EVIDENT IN LATERAL LEADS QT HAS LENGTHENED Confirmed by MD Drew, Qarab ([id number]) on 09/04/2017 5:19:55 PM ? INTERVENTION: Biological: increase Seroquel 50 mg po bid. Psychological: support and encouragement. Social: encourage to participate in the milieu DISCHARGE PLANNING: Discharge by the end of the week. SIGNATURE: Sophia Fontenot MD PATIENT NAME: Sherita Jurado DATE: September 10, 2017 TIME:11:12 AM PAGER/CONTACT#: [phone] NURSING PROG Observed: 09/10/2017 Status: COMPLETED Source: [facility] 9:08 AM CLINIC OTHER CAMPUS REPOSITORY HNO ID: [id number] Author: Celeste Hook (Rn) JOSE Lisa Service: Nursing Author Type: Registered Nurse Type: Nursing Progress Note Filed: 09/10/2017 9:13 AM Note Text: Nursing Progress Note Patient Name: Sherita Jurado Patient Location: [place] [address] [address]* Daily Note:assumed care of the pt at 0700. The pt C/O no pain or discomfort at this time. The pt denies SI, HI and AVH at this time. The pt is medication compliant whole. The pt is pleasant, calm and in control. The pt needs minimal assistance with meals. The pt is up in the day area. The pt C/O no pain or discomfort at this time. 15 min safety checks maintained. Will continue to monitor. This note was completed by: Celeste Lisa RN NURSING PROG Observed: 09/10/2017 Status: COMPLETED Source: [facility] 1:29 AM [facility] REPOSITORY HNO ID: [id number] Author: Igor Majano LPN Service: (none) Author Type: LICENSED NURSE Type: Nursing Progress Note Filed: 09/10/2017 6:46 AM Note Text: Nursing Progress Note Patient Name: Sherita Jurado Patient Location: [place] [address] [address]* Daily Note:0005-assumed care of patient at this time. He is observed in his room asleep without signs of distress. Respirations are easy and symmetrical. Bed is locked and in a lower position. 0700-Patient slept 7 hours. Behavior in good control. Ambulates with mostly steady gait. He is cooperative. This note was completed by: Igor Majano LPN NURSING PROG Observed: 09/09/2017 Status: COMPLETED Source: [facility] 10:36 PM [facility] REPOSITORY HNO ID: [id number] Author: Avi SpencerRnJulio César Keene RN Service: (none) Author Type: Registered Nurse Type: Nursing Progress Note Filed: 09/09/2017 10:39 PM Note Text: Nursing Progress Note Patient Name: Sherita Jurado Patient Location: [place] [address] [address]* Daily Note: Patient Name: Sherita Jurado SERVICE DATE: September 09, 2017 SERVICE TIME: 10:36 PM Pt has been out in the day area calm and cooperative. General appearance is well groomed in hospital gown. Pt is pleasant on approach and was medication compliant. Appetite is good. No acute distress or behavioral issues observed at this time. Will continue to monitor pt q 15 minutes on rounds for safety. Treatment Plan: Reviewed. Will continue written plan of care. Signature: Avi Keene RN Date: September 09, 2017 Time: 10:36 PM This note was completed by: Avi Keene RN THERAPY NT Observed: 09/09/2017 Status: COMPLETED Source: [facility] 4:50 PM CLINIC OTHER CAMPUS REPOSITORY O ID: [id number] Author: Chelly Garcia (Pt) Stella Service: Physical Therapy Author Type: Physical Therapist Type: Therapy (PT/OT/Speech/Resp) Filed: 09/09/2017 4:57 PM Note Text: Physical Therapy Evaluation SERVICE DATE: 09/09/2017 SERVICE TIME: 1516 to 1554 ROOM: [place] [address] Recommended Discharge Disposition: Subacute/SNF Justification For Post Acute Needs: Willing to participate;Motivated;Anticipated community discharge Anticipated Discharge Needs: Supervision at Home Physical Assist at Home for: Transfers;Finances;Ambulation;Cleaning;Laundry;Medication Management;Safety;Self Care;Shopping;Transportation Supervision at Home due to: Decreased safety awareness Recommended Discharge Equipment: To Be Determined PT Recommendations to Nursing: Ambulate with device;Transfer to/from chair;OOB for Meals;With assist of 1 person Device: Wheeled Walker PT 6 Clicks Score: 18 ASSESSMENT : Has tremors which can impair ability to do ADLs safely. Needs assistance with ambulation for safety in balance at this time but has good potential to be able to improve balance and ambulate with a RW safely with supervision only.Will most likely benefit from SNF prior to d/c home. Patient Disposition at Start of Session: OOB in Chair Patient Disposition at End of Session: OOB in Chair Tolerated Full Session Physical Therapy Problem List: Education Deficit;Safety Deficits;Decreased Activity Tolerance;Decreased Strength;Functional Mobility Impairment;Balance Impaired Patient /Caregiver Goals: Walk;Go Home Goals for Plan of Care: Able to perform HEP with: Independent Rolling with: Independent Transfer supine to/from sit with: Independent Transfer sit to/from stand with: Supervision Ambulate with: Supervision Distance: 100 Device: Wheeled Walker Rehab Potential: Good PLAN: Treatment Frequency (times per week): 3 Current admission Treatment Interventions: Education;Strengthening;Functional Mobility Training;Balance Training Plan of Care developed with: Patient TREATMENT INTERVENTIONS: Therapy Diagnosis: Reduced mobility-other;Decreased activities of daily living (ADL);Muscle Weakness (generalized);Unsteadiness on feet;Abnormalities of gait and mobility-other Interventions Provided: Evaluation;Therapeutic Activity (50871);Gait Training (36953) $ Evaluation-Low (22475) Billed Units: 1 unit Therapeutic Activity (43338) Treatment Minutes: 15 1 unit Skilled Intervention(s): Instruction in sit to stand technique with proper hand placement and body positioning at edge of bed/chair Instruction in stand to sit technique with lower extremities touching chair/bed and reaching back for surface Educated pt on the benefits of doing exercises and how to do them in the sitting position. Performed exercises for the LE in sitting as noted in the flow sheet x 10 reps for every movement under PT direction and supervision. Tolerated the exercises well. Gait Training (58721) Treatment Minutes: 10 1 unit Skilled Intervention(s): Instruction in sit to stand technique with proper hand placement and body positioning at edge of bed/chair, Instruction in stand to sit technique with LE's touching chair/bed and reaching back for surface, Instruction in sequencing, gait pattern, Instruction in correction of gait deviations and Instruction in use of equipment, cues for sequence and pattern Total Timed Code Treatment Minutes: 25 Total Treatment Time (minutes): 38 FUNCTIONAL G CODE: PT 6 Clicks Score: 18 (09/09/17 495) Mobility: Walking and Moving Around Current Status (G8978): CK (09/09/17 1516) Mobility: Walking and Moving Around Goal Status (G8979): CJ (09/09/17 1516) Based on clinical assessment and the score on the 6 Clicks Functional Assessment Tool, the G code and corresponding severity modifiers are documented above. Physician signature certifies treatment plan of care established above for the period of 09/09/2017 through 09/23/2017. SUBJECTIVE: Current Hospital Course: A 71 y/o male pt admitted for progressively worsening tremors. Dx schizophrenia with extrapyramidal effects.Has a Hx of urinary retentions and Parkinson's Dse..Has a Hx of falls.Has resting tremors. Reason for Physical Therapy Consult : (Safety assessment) Patient Report: I can walk with assistance No pain. Home Environment Patient Lives With: Facility Care (skilled nursing) Assistance Available: 24 Hour Entry To Home: No Stairs Number Of Stairs To Bed/Bath: (on ground floor no steps) Stairs to Bed/Bath with: (0) Tub/Shower Type: combo Laundry: same level Equipment Owned: Hand Held Shower (reports does not own any personal AE) Prior Functional Level: (mild tremors with risperdal) OBJECTIVE: Range Of Motion: Within Functional Limits Strength: Within Functional Limits Quality of Movement: Tremor Transitions: Min A CURRENT FUNCTIONAL STATUS: Current Functional Mobility Assist Level Additional Information Rolling Supine to Sit Sit to Supine Scooting Supervision Sit to Stand Minimal Assistance Stand to Sit Minimal Assistance Bed to Chair Minimal Assistance Toilet/Commode Gait Minimal Assistance Gait Device: Wheeled Walker Gait Distance (feet): 60 Stairs Curb Step Car Transfer General Gait Deviations: Jo decreased;Step length decreased;Loss of Balance;Flexed trunk posture Balance: Static Sitting;Dynamic Sitting;Static Standing;Dynamic Standing Static Sitting Balance: Independent Dynamic Sitting Balance: Supervision Static Standing Balance: Minimal Assistance Dynamic Standing Balance: Minimal Assistance Activity Tolerance: Sitting Activity;Standing Activity Sitting Activity: Performed exercises in the chair for the LE Sitting Activity Tolerance (in minutes): 10 Standing Activity: amb Standing Activity Tolerance (in minutes): 10 Please see discipline specific clinical documentation flowsheet for complete details for this therapy evaluation/treatment. SIGNATURE: Chelly Douglas, PT PATIENT NAME: Sherita Jurado DATE: September 09, 2017 TIME: 4:50 PM PAGER/CONTACT #: [phone] PROGRESS Observed: 09/09/2017 Status: COMPLETED Source: [facility] 3:06 PM CLINIC OTHER CAMPUS REPOSITORY HNO ID: [id number] Author: Rossana King Service: Wound/Ostomy Author Type: Nurse Practitioner Type: Progress Notes Filed: 09/09/2017 3:09 PM Note Text: CONSULT: WOUND CARE SERVICE SERVICE DATE: 09/09/2017 SERVICE TIME: 3:06 PM REASON FOR CONSULT: concern for stage 1 pressure injury on coccyx Subjective HISTORY OF PRESENT ILLNESS: Mr. Jurado is a 71 year old male who is seen on , with the admitting diagnosis of schizophrenia/parkinsons/dementia. Location coccyx Severity mild blanchable erythema Aggravating factors limited mobility, chronic comorbidities PAST MEDICAL HISTORY Diagnosis Date - Actinic keratosis - Breast lump LT breast; cavernous hemangioma/excised - Dizziness - Epidermoid cyst of skin - Falls - Lipoma of skin forearms and abdomen - Mammogram abnormal suspicious of cancer- referral made - Obesity - On upper doubler drug therapy - Palpitations - Parkinson disease (HCC) - Schizophrenia (HCC) - Tremor - Vitamin D deficiency PAST SURGICAL HISTORY Procedure Laterality Date - NONE Social History Substance Use Topics - Smoking status: Former Smoker - Smokeless tobacco: Never Used - Alcohol use No FAMILY HISTORY Problem Relation Age of Onset - Family history unknown: Yes MEDICATIONS: Current hospital medications: QUEtiapine 25 mg tab(s) (SEROquel) 25 mg ORAL BID amantadine HCl 100 mg cap(s) (SYMMETREL) 100 mg ORAL BID carbidopa-levodopa 25-100 mg 2 tablet (SINEMET 25-100) 2 tablet ORAL TID cholecalciferol 1,000 Units tab(s) (VITAMIN D3) 1,000 Units ORAL DAILY ziprasidone 10 mg injection (GEODON) 10 mg INTRAMUSCULAR q 6 H PRN tamsulosin ER 0.4 mg cap(s) (FLOMAX) 0.4 mg ORAL AT BEDTIME donepezil 10 mg tab(s) (ARICEPT) 10 mg ORAL AT BEDTIME traZODone 50 mg tab(s) (DESYREL) 50 mg ORAL HS PRN acetaminophen 650 mg tab(s) (TYLENOL) 650 mg ORAL q 6 H PRN nicotine polacrilex 2 mg gum (NICORETTE) 2 mg ORAL q 2 H PRN aluminum-magnesium hydroxide-simethicone 200-200-20 mg/5 mL 30 mL (MAALOX,MYLANTA,MAG-AL PLUS) 30 mL ORAL q 4 H PRN magnesium hydroxide 400 mg/5 mL 15 mL (MOM) 15 mL ORAL DAILY PRN ALLERGIES Allergen Reactions - Goose Feathers Allen* Unknown - Zyprexa [Olanzapine] Unknown Objective PHYSICAL EXAM: BP 142/88 Pulse 89 Temp 36.8 ?C (98.2 ?F) (Oral) Resp 17 Ht 179.1 cm (5' 10.51) Wt 83.5 kg (184 lb) SpO2 97% BMI 26.02 kg/m? GENERAL: Alert, no distress, cooperative SKIN: Skin color, texture, turgor normal. No rashes or lesions. WOUND: Clean, dry and intact, blanchable erythema on coccyx. WOUND DOCUMENTATION: Impression/Recommendations Blanchable erythema on coccyx See wound care instructions below. Barriers to Healing: Age, Comorbid Conditions and Mobility Pressure Injury Prevention: Pressure Redistribution Surface and Turn Schedule WOUND CARE INSTRUCTIONS WOUND CARE (NURSING ORDER ONLY) (SPECIFY) (AK,AV,EU,FV,HL,ELISSA,MM,SP) Order Comments: Wound Care Order:Coccyx Cover with Allevyn foam (#[id number]). Change dressing every 3 days and PRN Debility/Deconditioning - Turn and reposition frequently - Float heels while in bed - Pressure reduction devices as needed - Nutritional support as appropriate Freq: Ongoing Order Specific Question: Specify: Answer: coccyx Counseling Provided: Prevention Dressing/ointments Follow Up: Information provided to Patient Thank you for including me in the care of this patient. Please re-consult our service if further wound care needs arise. SIGNATURE: Rossana King APRN.COSMO PATIENT NAME: Sherita Jurado DATE: September 09, 2017 TIME: 3:06 PM PHONE: PLAN OF CARE Observed: 09/09/2017 Status: COMPLETED Source: [facility] 1:20 PM CLINIC OTHER CAMPUS REPOSITORY O ID: [id number] Author: Sera Adam (Fur Storage Clerk) Service: Pharmacy Author Type: Pharmacist Type: Plan of Care Filed: 09/09/2017 1:25 PM Note Text: MEDICATION HISTORY AND MEDICATION RECONCILIATION Patient Name:Donato Jurado : 1945 Source of history:[facility]/Other [facility] ([phone]) and Pharmacy records: [facility] EMR report Medication Nonadherence Identified: No barriers noted The above information represents the best possible medication history: Yes Reconciliation completed? Yes All [employer] medications addressed by LIP Additional comments: Spoke with [facility] about the patient's medications, it was noted that the patient's mediations have been changed at least 3 times in the past month alone to try to help control his tremors. The benztropine 2mg PO BID was recently changed on 08/20/17. Patient had a recent fill for Amantadine 100mg PO BID and Ziprasidone 80mg PO BID on 08/19/17 but is not currently taking them. Allergies: ALLERGIES Allergen Reactions - Goose Feathers Allen* Unknown - Zyprexa [Olanzapine] Unknown Preferred Pharmacy: [facility] Current [employer]ER [employer]OR Medications: Prior to Admission medications as of 09/09/17 1320 Medication Sig Last Dose Taking cholecalciferol (VITAMIN D) 1,000 unit tab tablet Take 1,000 Units by mouth once daily. 09/07/2017 at 0900 Yes OTC PRODUCT Take 5 Drops by mouth three times daily. CBD Oil 5 drops 3 times daily highest dose. This was recommended by psychiatrist Unknown at Unknown time Yes benztropine (COGENTIN) 1 mg tablet Take 2 mg by mouth twice daily. 09/07/2017 at 0900 Yes haloperidol (HALDOL) 5 mg tablet Take 5 mg by mouth twice daily. 09/07/2017 at 0900 Yes carbidopa-levodopa (SINEMET) 25-100 mg per tablet Take 2 tablets by mouth three times daily. 09/07/2017 at 0900 Yes Donepezil 23 mg tab Take 1 tablet by mouth daily at bedtime. 09/06/2017 at 2100 Yes Sera Adam,Fur Storage Clerk September 09, 2017 1:20 PM NUTRITION Observed: 09/09/2017 Status: COMPLETED Source: [facility] 11:06 AM [facility] OTHER CAMPUS REPOSITORY O ID: [id number] Author: Raffi Schumacher Service: Nutrition Therapy Author Type: Registered Dietitian Type: Nutrition Filed: 09/09/2017 1:10 PM Note Text: NUTRITION THERAPY INITIAL ASSESSMENT SERVICE DATE: 09/09/2017 SERVICE TIME: 11:00am RECOMMENDED MALNUTRITION DIAGNOSIS: MILD PROTEIN-CALORIE MALNUTRITION In the context of Chronic Illness or Injury based on: Insufficient Energy Intake: Less than 75% energy intake compared to estimated needs for greater than or equal to 1 month NUTRITION CARE PLAN: Problem, Etiology and Signs/Symptoms: Suboptimal protein/energy intake related to tremors AND swallowing concerns as evidenced by patient report Intervention: -Continue dental soft diet as tolerated -Continue Ensure HP AND Magic Cup supps for optimal intake -Order reweigh Monitor and Evaluation: Goal: Meet >75% of estimated needs Monitor fluid/electrolyte balance Monitor labs, I/Os, vital signs, weight Discharge Nutrition Recommendations: To be determined Per HPI: Sherita Jurado is a 71 year old single male with a history of Parkinson's Disease and Schizophrenia?referred by [place]?medical unit?for transfer to an inpatient psychiatric unit. Patient was brought in via ambulance to [place] ED on 09/03/2017 from his skilled nursing [facility] where he has lived for over 5 years with a chief complaint of progressively worsening tremors for over the past few months after patient's Risperdal was discontinued in April 2017. Patient had already been having tremors while on the Risperdal, but once it was discontinued the tremors actually worsened and he started having choking episodes while eating. Patient has lost 25lbs in 3 months. He has had many frequent falls and his ADLs are significantly impaired. Patient denies SI/HI/AH/VH and displays no symptoms of odessa/psychosis. He is alert and oriented on all spheres and has been appropriate and cooperative on the medical unit. He requires the use of a gait belt?and assistance with all activities. PAST MEDICAL HISTORY Diagnosis Date - Actinic keratosis - Breast lump LT breast; cavernous hemangioma/excised - Dizziness - Epidermoid cyst of skin - Falls - Lipoma of skin forearms and abdomen - Mammogram abnormal suspicious of cancer- referral made - Obesity - On retirement drug therapy - Palpitations - Parkinson disease (HCC) - Schizophrenia (HCC) - Tremor - Vitamin D deficiency Present Diet Order: Food Consistency Controlled Dental Soft Patient needs assistance eating d/t extreme tremors. Eating OK per nsg. Patients reports recent wt loss and poor intake d/t difficulty eating. Inaccurate wt history, requesting reweigh. Possible updated maln dx with new weight. Nutritional Intake Prior to Admission: <75% estimated energy needs over the past 1 month(s) GI symptoms: swallowing problems Abdominal Exam: not assessed Is the patient having any pain that is interfering with oral/enteral intake? Unable to assess ANTHROPOMETRICS Height: 179.1 cm (5' 10.51) Admission Weight: 83.5 kg (184 lb) Current Weight: 83.5 kg (184 lb) Body mass index is 26.02 kg/m?. overweight Weight has decreased. Inaccurate wt history, copied weights in August. Requesting reweigh for possible significant wt loss. Last Wt 09/07/17 : 83.5 kg (184 lb) 09/03/17 : 83.5 kg (184 lb) 08/25/17 : 83.5 kg (184 lb) 08/04/17 : 85.3 kg (188 lb) 07/24/17 : 85.4 kg (188 lb 3.2 oz) 02/06/17 : 93 kg (205 lb) 11/08/16 : 94.3 kg (208 lb) 11/30/15 : 97.1 kg (214 lb) 01/10/16 : 99.3 kg (219 lb) Dosing Weight: 83.5 kg Resting Metabolic Rate: 1603 Estimated kilocalorie needs: 9338-8084 kilocalories determined by 22-25 kcal/kg Estimated protein needs: 84-100 grams determined by 1.0-1.2 g/kg Dosing weight Estimated fluid needs: 0079-6588 milliliters based on 1 mL per kcal NUTRITION FOCUSED PHYSICAL EXAM: Unable to perform exam, will re-attempt during reassessment. Temperature Max in 24 hours: Temp (24hrs), Av.8 ?C (98.2 ?F), Min:36.7 ?C (98.1 ?F), Max:36.8 ?C (98.2 ?F) BP 142/88 Pulse 89 Temp 36.8 ?C (98.2 ?F) (Oral) Resp 17 Ht 179.1 cm (5' 10.51) Wt 83.5 kg (184 lb) SpO2 97% BMI 26.02 kg/m? Recent Labs 09/07/17 0330 GLUC 99 BUN 9 CREAT 0.59* NA 138 K 3.8 CHLOR 98 CO2 30 HB 14.7 HCT 43.4 WBC 7.11 MG 2.0 Potential Signs of Inflammation: no identifiable sources Current Facility-Administered Medications: amantadine HCl 100 mg cap(s) (SYMMETREL) 100 mg ORAL BID carbidopa-levodopa 25-100 mg 2 tablet (SINEMET 25-100) 2 tablet ORAL TID cholecalciferol 1,000 Units tab(s) (VITAMIN D3) 1,000 Units ORAL DAILY ziprasidone 10 mg injection (GEODON) 10 mg INTRAMUSCULAR q 6 H PRN tamsulosin ER 0.4 mg cap(s) (FLOMAX) 0.4 mg ORAL AT BEDTIME donepezil 10 mg tab(s) (ARICEPT) 10 mg ORAL AT BEDTIME traZODone 50 mg tab(s) (DESYREL) 50 mg ORAL HS PRN acetaminophen 650 mg tab(s) (TYLENOL) 650 mg ORAL q 6 H PRN nicotine polacrilex 2 mg gum (NICORETTE) 2 mg ORAL q 2 H PRN aluminum-magnesium hydroxide-simethicone 200-200-20 mg/5 mL 30 mL (MAALOX,MYLANTA,MAG-AL PLUS) 30 mL ORAL q 4 H PRN magnesium hydroxide 400 mg/5 mL 15 mL (MOM) 15 mL ORAL DAILY PRN MNT Billing Type: Initial Assess/15 min 3 units SIGNATURE: Yodit Francis PATIENT NAME: Sherita Jurado DATE: September 09, 2017 TIME: 11:06 AM PAGER: NUTRITION THERAPY: TEACHING DIETITIAN NOTE OF PERSONAL INVOLVEMENT OF CARE. I have reviewed the progress note obtained and documented by the general internist. I have discussed the case and management of the patient?s nutrition therapy with the general internist. The following comments revise or confirm relevant vernon components of the general internist?s note. Raffi Schumacher RD, [place], [facility] Pager: [phone] PROGRESS Observed: 09/09/2017 Status: COMPLETED Source: [facility] 10:59 AM [facility] OTHER CAMPUS REPOSITORY O ID: [id number] Author: Sophia Fontenot Service: Behavioral Health Author Type: Physician Type: Progress Notes Filed: 09/09/2017 11:20 AM Note Text: PROGRESS NOTE BEHAVIORAL HEALTH SERVICE DATE: 09/09/2017 SERVICE TIME: 11:05 AM The Interdisciplinary team met and reviewed treatment goals and discharge planning. Subjective Pt was seen with the pharmacy aide. Pt was observed to have involuntary movements of his upper extremities and trunk. The movements intensified as he was conversing with us and at times he had a difficult time to control it. Pt stated he started having these movements 10 to 12 months ago. Pt stated he has a diagnosis of Schizophrenia and dementia. According to him he lives a the [facility] . Has been living there for about a year. He has been getting psychiatric care under the care of Dr Holder for years. Per reports his behavior has been progressively getting worse at the home he lost wt. He is not able to feed self due to his tremors. He denied auditory hallucinations. He denied thoughts of hurting self. He has mild cognitive impairment. Pt was seen by Neurology and appreciate the input. Pt is confined to wheelchair because of his difficulty to ambulate steadily. Pt has a guardian Mr Cole. Pt reported that he is single and his only daughter is estranged from him. Sherita Jurado is a 71 year old single male with a history of Parkinson's Disease and Schizophrenia?referred by [place]?medical unit?for transfer to an inpatient psychiatric unit. Patient was brought in via ambulance to [place] ED on 09/03/2017 from his skilled nursing [facility] where he has lived for over 5 years with a chief complaint of progressively worsening tremors for over the past few months after patient's Risperdal was discontinued in April 2017. Patient had already been having tremors while on the Risperdal, but once it was discontinued the tremors actually worsened and he started having choking episodes while eating. Patient has lost 25lbs in 3 months. He has had many frequent falls and his ADLs are significantly impaired. 3 months ago patient was very independent and even engaged in exercise. Patient has decompensated well below baseline according to the skilled nursing and patient's legal guardian Conrad Govea whom has known patient for over 5 years. Patient is being referred to inpatient psychiatric due to his substantially impaired ability to care of his basic human needs. Patient denies SI/HI/AH/VH and displays no symptoms of odessa/psychosis. He is alert and oriented on all spheres and has been appropriate and cooperative on the medical unit. He requires the use of a gait belt?and assistance with all activities. ? Objective Tremors of hands. Eyes somewhat wide open ,no exophthalmos. Anxious looking. PHYSICAL EXAM: BP 142/88 Pulse 89 Temp 36.8 ?C (98.2 ?F) (Oral) Resp 17 Ht 179.1 cm (5' 10.51) Wt 83.5 kg (184 lb) SpO2 97% BMI 26.02 kg/m? MENTAL STATUS EXAMINATION: Appearance: Casually dressed Behavior: Appropriate Orientation: Person and Place Speech/Language: Underproductive and Halting Mood/Affect: Anxious Thought Form: Coherent Thought Content: Coherent Suicidal Ideations: No suicidal ideation, intent or plan. Homicidal Ideations: No homicidal ideation, intent or plan. Insight: Fair Judgment: Limited Memory/Cognition: Mildly Impaired Psychomotor: Tremors and Dyskinesias NEW PROBLEMS ON UNIT SINCE LAST ENCOUNTER: None Current hospital medications: amantadine HCl 100 mg cap(s) (SYMMETREL) 100 mg ORAL BID carbidopa-levodopa 25-100 mg 2 tablet (SINEMET 25-100) 2 tablet ORAL TID cholecalciferol 1,000 Units tab(s) (VITAMIN D3) 1,000 Units ORAL DAILY haloperidol 2.5 mg tab(s) (HALDOL) 2.5 mg ORAL BID QUEtiapine 12.5 mg tab(s) (SEROquel) 12.5 mg ORAL BID ziprasidone 10 mg injection (GEODON) 10 mg INTRAMUSCULAR q 6 H PRN tamsulosin ER 0.4 mg cap(s) (FLOMAX) 0.4 mg ORAL AT BEDTIME donepezil 10 mg tab(s) (ARICEPT) 10 mg ORAL AT BEDTIME traZODone 50 mg tab(s) (DESYREL) 50 mg ORAL HS PRN acetaminophen 650 mg tab(s) (TYLENOL) 650 mg ORAL q 6 H PRN nicotine polacrilex 2 mg gum (NICORETTE) 2 mg ORAL q 2 H PRN aluminum-magnesium hydroxide-simethicone 200-200-20 mg/5 mL 30 mL (MAALOX,MYLANTA,MAG-AL PLUS) 30 mL ORAL q 4 H PRN magnesium hydroxide 400 mg/5 mL 15 mL (MOM) 15 mL ORAL DAILY PRN DATA: Diagnostic tests reviewed for today's visit: Most recent labs Assessment/Plan DIAGNOSIS: 1. PRIMARY: Schizophrenia Residual Type 2. tardive dyskinesia 3. Parkinson's disease 4. Mild cognitive impairment. GAF: -60-51 Moderate symptoms or moderate difficulty in social, occupational or school functioning. RISK ASSESSMENT: Suicide: low Homicide: low Deliberate Self-Harm: low Aggression: low Imminent Physical Self Impairment: high INFORMED CONSENT: see the chart. he has a guardian. Diagnosis:SINUS RHYTHM WITH FUSION COMPLEXES POOR DATA QUALITY WHEN COMPARED WITH ECG OF 27-JUN-1998 08:09, FUSION COMPLEXES ARE NOW PRESENT NONSPECIFIC T WAVE ABNORMALITY, IMPROVED IN INFERIOR LEADS NONSPECIFIC T WAVE ABNORMALITY NO LONGER EVIDENT IN LATERAL LEADS QT HAS LENGTHENED Confirmed by MD Drew, Qarab ([id number]) on 09/04/2017 5:19:55 PM ? INTERVENTION: Biological: stop Haloperidol. Increase the Seroquel 25 mg po bid. Psychological: support and encouragement. Social: encourage to participate in the milieu DISCHARGE PLANNING: Discharge by the end of the week. SIGNATURE: Sophia Fontenot MD PATIENT NAME: Sherita Jurado DATE: September 09, 2017 TIME: 11:00 AM PAGER/CONTACT#: [phone] NURSING PROG Observed: 09/09/2017 Status: COMPLETED Source: [facility] 9:37 AM [facility] REPOSITORY HNO ID: [id number] Author: Neva Doe RN Service: Nursing Author Type: Registered Nurse Type: Nursing Progress Note Filed: 09/09/2017 9:48 AM Note Text: Nursing Progress Note Patient Name: Sherita Jurado Patient Location: [place] [address]* Daily Note: Assumed care at 0700. Patient has visible tremors but he is medication compliant. Needs help with eating and taking medication. Patient is cooperative with care. Attended group. Will continue to monitor. This note was completed by: Neva Doe RN THERAPY NT Observed: 09/09/2017 Status: COMPLETED Source: [facility] 7:35 AM [facility] OTHER [place] REPOSITORY HNO ID: [id number] Author: MAGALY Ochoa Ot/Praneeth Service: Occupational Therapy Author Type: Occupational Therapist Type: Therapy (PT/OT/Speech/Resp) Filed: 09/09/2017 9:54 AM Note Text: Occupational Therapy Evaluation SERVICE DATE: 09/09/2017 SERVICE TIME: 0735 to ROOM: [place] [address] Recommended Discharge Disposition: Subacute/SNF Justification For Post Acute Needs: Anticipate patient will tolerate 3 hours of daily therapy at the time of admission to post-acute setting;Cognition intact;Good premorbid functional status;Living the community premorbidly;Medically complex Anticipated Discharge Needs: Physical Assist at Home;Supervision at Home Physical Assist at Home for: Transfers;Finances;Ambulation;Cleaning;Laundry;Meals;Medication Management;Stairs;Safety;Self Care;Shopping;Transportation Supervision at Home due to: Other: See Comment (resting and intention tremors impede ADLs ) OT Recommendations to Nursing: To Bathroom for ADL?s /and or Toileting;OOB for meals;Edge of bed ADL?s (overhand assist for ADLs decreased assist when tremors dec ) Equipment: (possibly wieghted utensils) OT 6 Clicks Score: 14 ASSESSMENT: Patient presents with severe resting tremors and mild to mod intention tremors affecting FMC and GMC for ADL s and IADL s Requires skilled OT for modified ADLs and retraining to assist with tremors Patient Disposition at Start of Session: Supine in Bed Patient Disposition at End of Session: OOB in Chair Tolerated Full Session Occupational Therapy Problem List: Impaired Self Care;Decreased Activity Tolerance;Functional Mobility Impairment;Impaired Fine Motor Skills Patient /Caregiver Goals: Go To Rehab Goals for Plan of Care: Able to perform HEP with: Independent Feeding with: Minimal Assistance (with modified techniques and equip) Grooming with: Minimal Assistance (via modified equip and techniques) Upper Body Bathing with: Minimal Assistance Upper Body Dressing with: Minimal Assistance (to amira/doff clothing fasteners with AE) Lower Body Bathing with: Minimal Assistance Lower Body Dressing with: Minimal Assistance (using AE/modified techniques) Tolerate (minutes of functional activity): 20 Functional Activity with: Modified Independent Additional Goal 1: (demonstrate improved FMC and GMC exer as relates to ADLS) Demonstrate Competence With Education with: Modified Independent Rehab Potential: Good PLAN: Treatment Frequency (times per week): 3 Current admission Treatment Interventions: Education;Self Care / Home Management;Functional Mobility Training;Other: See Comment (FMC GMC exercises activities as relates to ADLs ) Plan of Care developed with: Patient TREATMENT INTERVENTIONS: Therapy Diagnosis: Decreased activities of daily living (ADL);Reduced mobility-other (severe resting tremors, mod intention tremors) Interventions Provided: Evaluation;Therapeutic Activity (92292) $ Evaluation-Moderate (41857) Billed Units: 1 unit Therapeutic Activity (40405) Treatment Minutes: 17 2 units Skilled Intervention(s): Instruction in sit to and from stand technique with proper hand placement and body positioning at edge of bed/chair Skilled instruction for safe functional ADLs and mobility in room. OT POC discussed with patient Total Timed Code Treatment Minutes: 17 Total Treatment Time (minutes): 25 FUNCTIONAL G CODE: OT 6 Clicks Score: 14 (09/09/17 2160) Based on clinical assessment and the score on the 6 Clicks Functional Assessment Tool, the G code and corresponding severity modifiers are documented above. Physician signature certifies treatment plan of care established above for the period of 09/09/2017 through 09/23/2017. SUBJECTIVE: Current Hospital Course: Chart reviewed Sherita Jurado is a 71 year old single male with a history of Parkinson's Disease and Schizophrenia?referred by [place]?medical unit?for transfer to an inpatient psychiatric unit. Patient was [facility] in via ambulance [facility] with a chief complaint of progressively worsening tremors for over the past few months after patient's Risperdal was discontinued in April 2017. Patient had already been having tremors while on the Risperdal, but once it was discontinued the tremors actually worsened and he started having choking episodes while eating. Patient has lost 25lbs in 3 months. He has had many frequent falls and his ADLs are significantly impaired. 3 months ago patient was very independent and even engaged in exercise. Patient has decompensated well below baseline according to the skilled nursing and patient's legal guardian Conrad Govea whom has known patient for over 5 years. Patient is being referred to inpatient psychiatric due to his substantially impaired ability to care of his basic human needs. Patient denies SI/HI/AH/VH and displays no symptoms of odessa/psychosis. He is alert and oriented on all spheres and has been appropriate and cooperative on the medical unit. He requires the use of a gait belt?and assistance with all activities. ? Reason for Occupational Therapy Consult: safety assessment Relevant Past Medical History: schizophrenia, parkinsons Patient Report:no c/o Home Environment Patient Lives With: Facility Care (skilled nursing) Assistance Available: 24 Hour Entry To Home: No Stairs Number Of Stairs To Bed/Bath: (on ground floor no steps) Stairs to Bed/Bath with: (0) Tub/Shower Type: combo Laundry: same level Equipment Owned: Hand Held Shower (reports does not own any personal AE) Prior Functional Level: (mild tremors with risperdal) PAST MEDICAL HISTORY Diagnosis Date - Actinic keratosis - Breast lump LT breast; cavernous hemangioma/excised - Dizziness - Epidermoid cyst of skin - Falls - Lipoma of skin forearms and abdomen - Mammogram abnormal suspicious of cancer- referral made - Obesity - On retirement drug therapy - Palpitations - Parkinson disease (HCC) - Schizophrenia (HCC) - Tremor - Vitamin D deficiency OBJECTIVE: Responsiveness: Alert;Awake Follows Commands: 3-step Commands Hand Dominance: Right Range Of Motion: Within Functional Limits Strength: Within Functional Limits Coordination Deficits: Finger to nose;Finger opposition Finger to Nose Impairment: Bilateral (opposition to index bilat with moderate intention tremors) Finger Opposition Impairment: Bilateral (severe resting tremors less with intention tremors, ) Vision Deficits: Wears glasses CURRENT FUNCTIONAL STATUS: Current Activities of Daily Living Assist Level Feeding Maximal Assistance Grooming Maximal Assistance Bathing Upper Body Moderate Assistance Bathing Lower Body Moderate Assistance Dressing Upper Body Moderate Assistance Dressing Lower Body Moderate Assistance Toileting Minimal Assistance Instrumental Activities of Daily Living Assist Level Meal/Beverage Prep Light Cleaning Laundry Medication Management with Strategies Functional Mobility Assist Level Rolling Independent Supine to Sit Independent Sit to Supine Independent Scooting Independent Sit to Stand Supervision Stand to Sit Supervision Bed to Chair Supervision Stand Pivot Gait Belt Toilet/Commode Supervision Functional Mobility Supervision (for room and bathroom mobility) (none used ) Balance: Static Sitting;Dynamic Sitting;Static Standing;Dynamic Standing Static Sitting Balance: Independent Dynamic Sitting Balance: Independent Static Standing Balance: Supervision Dynamic Standing Balance: Supervision Activity Tolerance: Sitting Activity;Standing Activity Sitting Activity: (EOB 10 min) Sitting Activity Tolerance (in minutes): 10 Standing Activity: room mobility Standing Activity Tolerance (in minutes): 5 (declined walking to dining room full or partial distance) Please see discipline specific clinical documentation flowsheet for complete details for this therapy evaluation/treatment. SIGNATURE: Keerthi Iyer OTR/L PATIENT NAME: Sherita Jurado DATE: September 09, 2017 TIME: 9:47 AM PAGER: [phone] NURSING PROG Observed: 09/08/2017 Status: COMPLETED Source: [place] 10:38 PM [facility] REPOSITORY HNO ID: [id number] Author: Sabrina SpencerRnJulio César Sanabria RN Service: (none) Author Type: Registered Nurse Type: Nursing Progress Note Filed: 09/09/2017 6:09 AM Note Text: Nursing Progress Note Patient Name: Sherita Jurado Patient Location: [place] [address] [address]* Daily Note:Assumed care of patient at 1900. He is visible in day area at the start of shift. He is pleasant and in control, [id number]. He has profound tremors of bilateral arms and hands. He denies SI/HI/AVH and no c/o pain. He is compliant with his medications, taking them whole with water. Safety rounding maintained and will continue to monitor. 0600 Slept 8 hours, no behavioral issues this shift. No s/s of pain or distress noted. Will continue to monitor. This note was completed by: Sabrina Sanabria RN NURSING PROG Observed: 09/08/2017 Status: COMPLETED Source: [place] 5:31 PM [facility] REPOSITORY HNO ID: [id number] Author: Michael SpencerRn) JOSE Jarquin Service: ASSESSMENT Author Type: Registered Nurse Type: Nursing Progress Note Filed: 09/08/2017 5:31 PM Note Text: Nursing Progress Note Patient Name: Sherita Jurado Patient Location: [place] [address] [address]* Daily Note: Patient up and visible on the unit, but not social flat affect . AANDO3 in [place]. Patient calm and in control. Patient was complaint with his scheduled medication. Patient denies S/H ideation. Patient has tremors and dependent on staff for feeding and ADL's.patient denies pain or discomfort. Patient feeling depressed. Will cont to monitor. This note was completed by: Michael Jarquin RN CASE MGT INIT Observed: 09/08/2017 Status: COMPLETED [facility] CL[facility]IC OTHER CAMPUS REPOSITORY HNO ID: [id number] Author: PEDRO Diggs (Sw) Service: Social Work Author Type: Mathematics Faculty Member Type: Care Mgt Initial Assessment Filed: 09/12/2017 9:25 AM Note Text: BEHAVIORAL HEALTH SOCIAL WORK/CARE MANAGEMENT ASSESSMENT AND DISCHARGE PLAN SERVICE DATE: 09/08/2017 SERVICE TIME: 11:36 AM Reason for Admission: Per Intake: Sherita Jurado is a 71 year old single male with a history of Parkinson's Disease and Schizophrenia?referred by [place]?medical unit?for transfer to an inpatient psychiatric unit. Patient was brought in via ambulance to [facility] on 09/03/2017 from his skilled nursing [facility] where he has lived for over 5 years with a chief complaint of progressively worsening tremors for over the past few months after patient's Risperdal was discontinued in April 2017. Patient had already been having tremors while on the Risperdal, but once it was discontinued the tremors actually worsened and he started having choking episodes while eating. Patient has lost 25lbs in 3 months. He has had many frequent falls and his ADLs are significantly impaired. 3 months ago patient was very independent and even engaged in exercise. Patient has decompensated well below baseline according to the skilled nursing and patient's legal guardian Conrad Govea whom has known patient for over 5 years. Patient is being referred to inpatient psychiatric due to his substantially impaired ability to care of his basic human needs. Patient denies SI/HI/AH/VH and displays no symptoms of odessa/psychosis. He is alert and oriented on all spheres and has been appropriate and cooperative on the medical unit. He requires the use of a gait belt?and assistance with all activities. Legal Status: Voluntary - Guardian Provided Consent Important Contacts: Primary Contact Name: Martha Govea (Conrad) / Relationship: Guardian / / Roberto SpencerDiana)- Business Banking Relationship Manager ([phone] or cell [phone]) Does the patient/customer service representative consent to contact with the above at this time? Not Applicable Information obtained from: Chart Patient Referred by: Medical Team Living Arrangements Prior to Admission: [facility] Facility: [facility] Prior to Admission, Patient was Living with: N/A - Patient From Facility Marital Status: Single Unknown if ever Children (including quality of relationship): Patient does not have any children Sexual Orientation: Heterosexual SOCIAL HISTORY Sherita Jurado was born and raised in [place], [place] by his mother. His childhood is described as unknown. He has 2 siblings. He has estranged relationship with family members. 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 No, Patient/Centerless Grinder Operator denies Substance Use and Treatment History: Lab Results Negative for Tested Substances Unknown Do special considerations/accommodations need to be made (i.e. preferred language, literacy, gender identity, physical disability such as deaf or blind, etc)? No, Patient/Centerless Grinder Operator Denies Are there practices or beliefs that may affect or influence treatment? No, Patient/Centerless Grinder Operator Denies Patient Strengths/Protective Factors (Minimum of Two): Connected with Outpatient Providers Legal Guardian Stable Housing Stable Income FAMILY PSYCHIATRIC HISTORY Patient/Centerless Grinder Operator Denies DISCHARGE RECOMMENDATIONS: Relinkage With Previous Providers Extended Care Nursing Facility Patient/Centerless Grinder Operator Agreeable With Discharge Recommendations At This Time? Yes FREEDOM OF CHOICE EXPLAINED: No, not appropriate due to mental status NEEDS PRIOR TO DISCHARGE: Waiting for: Psychiatric Stabilization Collateral Information Physician to Discharge OBSTACLES TO TREATMENT/POST-DISCHARGE CHALLENGES: Mental Status SUMMARY: SW met with patient for initial assessment. Patient was calm and cooperative. He is a poor historian. Pt stated that he would like for the doctor to take my shakes away. Collateral to be gained from guardian. SW placed call to legal guardian Martha( Conrad) and left requesting call in return. Patient is currently involuntary. Per chart review, machine heel builder began to notice a change in behaviors 3 months ago. Per notes guardian would like for patient to reside in a nursing facility for stabilization. Unit SW to discuss referral with guardian. SIGNATURE: PEDRO Stout PATIENT NAME: Sherita Jurado DATE: September 08, 2017 TIME: 11:03 AM HISTORY PHYSICAL Observed: 09/08/2017 Status: COMPLETED Source: [facility] 8:33 AM CLINIC OTHER CAMPUS REPOSITORY O ID: [id number] Author: Romie Lopez MD Service: Psychiatry Author Type: Physician Type: HANDP Filed: 09/08/2017 9:36 AM Note Text: HISTORY AND PHYSICAL BEHAVIORAL HEALTH SERVICE DATE: 09/08/2017 IDENTIFYING INFORMATION: Sherita Jurado is a 71 year old male patient who lives in a REASON FOR ADMISSION: Subjective HPI: Patient presents with worsening behavior. He is more disorganized and has had an increase in his tremor. He is in the day area. Only alert to person. Patient very shaky with a body tremor. Denies any SI / HI or AVH Per report Sherita Jurado is a 71 year old single male with a history of Parkinson's Disease and Schizophrenia?referred by [place]?medical unit?for transfer to an inpatient psychiatric unit. Patient was brought in via ambulance [facility] [place] [facility] with a chief complaint of progressively worsening tremors for over the past few months after patient's Risperdal was discontinued in April 2017. Patient had already been having tremors while on the Risperdal, but once it was discontinued the tremors actually worsened and he started having choking episodes while eating. Patient has lost 25lbs in 3 months. He has had many frequent falls and his ADLs are significantly impaired. 3 months ago patient was very independent and even engaged in exercise. Patient has decompensated well below baseline according to the skilled nursing and patient's legal guardian Conrad Govea whom has known patient for over 5 years. Patient is being referred to inpatient psychiatric due to his substantially impaired ability to care of his basic human needs. Patient denies SI/HI/AH/VH and displays no symptoms of odessa/psychosis. He is alert and oriented on all spheres and has been appropriate and cooperative on the medical unit. He requires the use of a gait belt?and assistance with all activities. PSYCHIATRIC REVIEW OF SYMPTOMS: Depression: + Depressed mood and + Sleep disturbance with no suicidal thoughts, intent or plan Odessa: Irritable mood Psychosis: Delusions , Disorganization TITO: Denies any symptoms of TITO OCD: Denies any symptoms of OCD. PTSD: Denies any PTSD symptoms. MEDICAL REVIEW OF SYSTEMS: GENERAL: Negative for malaise, significant weight loss and fever. HEENT: No changes in hearing or vision, no nose bleeds or other nasal problems. RESPIRATORY: Negative for cough, wheezing and shortness of breath. CARDIOVASCULAR: Negative for chest pain, leg swelling and palpitations. GI: Negative for abdominal discomfort, blood in stools or black stools. : Negative for dysuria, frequency and incontinence. MUSCULOSKELETAL: Negative for joint pain or swelling, back pain, and muscle pain. SKIN: Negative for lesions, rash, and itching. HEMATOLOGY/LYMPHOLOGY Negative for prolonged bleeding, bruising easily, and swollen nodes. ENDOCRINE: Negative for cold or heat intolerance, polyuria, polydipsia and goiter. NEURO: Negative for headaches, syncope, seizures and paralysis. PSYCHIATRIC HISTORY: Prior Diagnosis: Schizophrenia Current Psychiatrist: At Patient unable to provider other information PAST MEDICAL HISTORY Diagnosis Date - Actinic keratosis - Breast lump LT breast; cavernous hemangioma/excised - Dizziness - Epidermoid cyst of skin - Falls - Lipoma of skin forearms and abdomen - Mammogram abnormal suspicious of cancer- referral made - Obesity - On upper doubler drug therapy - Palpitations - Parkinson disease (HCC) - Schizophrenia (HCC) - Tremor - Vitamin D deficiency HOME MEDICATIONS: Current Facility-Administered Medications: amantadine HCl 100 mg cap(s) (SYMMETREL) 100 mg ORAL BID carbidopa-levodopa 25-100 mg 2 tablet (SINEMET 25-100) 2 tablet ORAL TID cholecalciferol 1,000 Units tab(s) (VITAMIN D3) 1,000 Units ORAL DAILY haloperidol 2.5 mg tab(s) (HALDOL) 2.5 mg ORAL BID QUEtiapine 12.5 mg tab(s) (SEROquel) 12.5 mg ORAL BID ziprasidone 10 mg injection (GEODON) 10 mg INTRAMUSCULAR q 6 H PRN tamsulosin ER 0.4 mg cap(s) (FLOMAX) 0.4 mg ORAL AT BEDTIME donepezil 10 mg tab(s) (ARICEPT) 10 mg ORAL AT BEDTIME traZODone 50 mg tab(s) (DESYREL) 50 mg ORAL HS PRN acetaminophen 650 mg tab(s) (TYLENOL) 650 mg ORAL q 6 H PRN nicotine polacrilex 2 mg gum (NICORETTE) 2 mg ORAL q 2 H PRN aluminum-magnesium hydroxide-simethicone 200-200-20 mg/5 mL 30 mL (MAALOX,MYLANTA,MAG-AL PLUS) 30 mL ORAL q 4 H PRN magnesium hydroxide 400 mg/5 mL 15 mL (MOM) 15 mL ORAL DAILY PRN MEDICATION ADHERENCE: Fair SUBSTANCE ABUSE HISTORY: Tobacco: No history of use or dependence. ETOH: No history of abuse or dependence. ILLICIT SUBSTANCE USE: None ALLERGIES Allergen Reactions - Goose Feathers Allen* Unknown - Zyprexa [Olanzapine] Unknown SOCIAL HISTORY: Born AND Raised in [place] Education: High school Employment: Unemployed, not seeking work. Relationships: The patient currently is single Objective VITALS: BP (!) 102/49 Pulse 76 Temp 36.4 ?C (97.5 ?F) (Oral) Resp 18 Ht 179.1 cm (5' 10.51) Wt 83.5 kg (184 lb) SpO2 98% BMI 26.02 kg/m? MENTAL STATUS EXAMINATION: Appearance: Disheveled and In hospital gown Behavior: Disorganized Orientation: Person Speech/Language: Stuttering Mood/Affect: Anxious and Distressed Thought Form: Blocking Thought Content: Delusions: Bizarre Suicidal Ideations: No suicidal ideation, intent or plan. Homicidal Ideations: No homicidal ideation, intent or plan. Insight: Limited Judgment: Limited Memory/Cognition: Severly Impaired Psychomotor: Agitated and Tremors PHYSICAL EXAM: Blood pressure (!) 102/49, pulse 76, temperature 36.4 ?C (97.5 ?F), temperature source Oral, resp. rate 18, height 179.1 cm (5' 10.51), weight 83.5 kg (184 lb), SpO2 98 %. GENERAL: Alert, no distress, cooperative. NEUROLOGIC: No gross abnormal findings including cranial nerves 2-12. MUSCULOSKELETAL: Tremor and body shakes GAIT: Normal. DATA: Diagnostic tests reviewed for today's visit: Most recent labs and imaging results. CT Brain (if indicated): Not Indicated TOXICOLOGY RESULTS FOR THE PAST 72 HOURS: WBC (k/uL) Date Value 09/07/2017 7.11 Hematocrit (%) Date Value 09/07/2017 43.4 Platelet Count (k/uL) Date Value 09/07/2017 218 Sodium (mmol/L) Date Value 09/07/2017 138 Potassium (mmol/L) Date Value 09/07/2017 3.8 BUN (mg/dL) Date Value 09/07/2017 9 AST (U/L) Date Value 09/03/2017 15 ALT (U/L) Date Value 09/03/2017 6 TSH (uU/mL) Date Value 09/03/2017 2.430 Assessment/Plan DIAGNOSIS: Schizophrenia Parkinson's Dementia with behavioral disturbance PLAN: Medications: Meds discussed with Neurology staff Will d/c Cogentin Continue all other medication Neurology consult done PRN meds Safety Precautions: Suicide , Escape Obtain Collateral From: Family Groups Med consult SIGNATURE: Romie Lopez MD PATIENT NAME: Sherita Jurado DATE: September 08, 2017 TIME: 8:33 AM PAGER/CONTACT#: LIPID PANEL, BASIC Collected: 09/08/2017 Status: F Source: [place] 7:14 AM CLINIC OTHER CAMPUS REPOSITORY TYPE CODE TESTS RESULT OUT OF REFERENCE UNITS RANGE LAB CHOL <200 mg/dL Cholesterol 154 Result Comment: <200 mg/dL, Desirable 200-239 mg/dL, Borderline high >239 mg/dL, High LAB TRIGLY <150 mg/dL Triglyceride 96 Result Comment: <150 mg/dL, Normal 150-199 mg/dL, Borderline high 200-499 mg/dL, High >499 mg/dL, Very high LAB HDL >39 mg/dL HDL-Cholesterol Low 37 Result Comment: 40-59 mg/dL, Acceptable >59 mg/dL, High: Negative risk factor for coronary heart disease <40 mg/dL, Low: Positive risk factor for coronary heart disease LAB LDL <100 mg/dL LDL-Cholesterol 98 Result Comment: <100 mg/dL, Optimal 100-129 mg/dL, Near optimal/above optimal 130-159 mg/dL, Borderline high 160-189 mg/dL, High >189 mg/dL, Very high Secondary prevention optimal LDL Cholesterol levels are recommended to be < 70 mg/dL LAB NONHDL <130 mg/dL Non HDL Cholesterol 117 Result Comment: <130 mg/dL, Optimal 130-159 mg/dL, Near optimal/above optimal 160-189 mg/dL, Borderline high 190-219 mg/dL, High >219 mg/dL, Very high Secondary prevention optimal non HDL Cholesterol levels are recommended to be < 100 mg/dL LAB FT hrs Fasting Time Unknown LAB VLDL <30 mg/dL VLDL 19 Cholesterol LAB TCHDL <5.10 TC:HDL Ratio 4.16 LAB LDLHDL <2.54 LDL:HDL Ratio High 2.65 Result Comment: Reference: 1. National Cholesterol Education Program ATP III Guideline At-A-Glance Quick Desk Reference: National Heart, Lung, and Blood [place]. National Institutes of Health. 2001: NIH Publication No. 01-3305. 2. An International Atherosclerosis Society position paper: global recommendations for the management of dyslipidemia: executive summary, Atherosclerosis. 2014: 232(2):410-413. Performed By: #### LIPB, HBA1C #### [facility] [address] [place], [place] [address] HEMOGLOBIN A1C Collected: 09/08/2017 Status: F Source: [place] 7:14 AM CLINIC OTHER CAMPUS REPOSITORY TYPE CODE TESTS RESULT OUT OF REFERENCE UNITS RANGE LAB HGBA1C 4.3-5.6 % Hemoglobin A1c 4.8 LAB HBA0 mg/dL Est. Average Glucose 91 Result Comment: eAG: (Estimated average glucose) is a calculated value from HgbA1c and is customer service representative of the average blood glucose level in the last 2-3 month period. Performed By: #### LIPB, HBA1C #### [facility] [address] [place], [place] [address] PROGRESS Observed: 09/08/2017 Status: COMPLETED Source: [place] 5:03 AM [facility] OTHER CAMPUS REPOSITORY HNO ID: [id number] Author: Remberto Fernandez MD Service: Neurology Author Type: Physician Type: Progress Notes Filed: 09/09/2017 7:52 AM Note Text: PATIENT NAME: Sherita Jurado SERVICE DATE: 09/08/2017 PRIMARY SERVICE: Neurology ASSESSMENT Dictated #[id number] ==> Tremors: A complex movement disorder with at least two components includin) Resting RUE>RLE tremors 2) Superimposed asynchronous violent shaking of both arms and legs with kinesis and posture, accentuated during verbal effort - and somewhat distractable The history he provided was insufficient to aid diagnosis, but collateral history suggested that Risperdal worsened his syndrome and Sinemet/Requip were reportedly ineffective. The asymmetry suggests that drug- effect alone may not fully explain his symptoms as neuroleptic induced EPS tends to be symmetric. Nevertheless, I agree with holding Risperdal and limiting his psychotropics to the minimum with a preference for those less likely to induce EPS. Since he is reported to have urinary retention, I would be comfortable if you decided to switch Cogentin to Amantadine (start with 100mg BID). It's likely that there is a psychogenic piece but I doubt that's the whole story. ==> Hx of schizophrenia ==> B12 deficiency: The EMR documents IM repletion has occured PLAN ---> OK to leave Sinemet at the current dose for now ---> Consider switching cogentin to amantadine ---> Consider outpatient referral to Movement Disorders clinic ---> Psych management deferred but from an EPS standpoint prefer medication with lowest likelihood of inducing EPS and at the lowest doses which are safe/effective ---> Attempted to reach contact ([phone]) but was unsuccessful ---> d/w Dr Hardin We very much appreciate the consult. [employer] -Remberto Fernandez MD -[place], [facility] Office: [phone] In the course of this person's neurologic evaluation and management, a good-ilya effort was made to review the following information entirely, in all it's detail, which supplements any dictated or otherwise provided history and physical exam documentation associated with the above clinical summary: Patient Vitals for the past 24 hrs: BP Temp Temp src Pulse Resp SpO2 Height Weight 09/07/171999 115/65 36.4 ?C (97.6 ?F) Oral 83 18 94 % - - 09/07/17 1327 - - - - - - 179.1 cm (5' 10.51) 83.5 kg (184 lb) 09/07/17 1324 135/91 36.3 ?C (97.3 ?F) Oral 86 16 100 % - - DATA: Diagnostic tests reviewed for today's visit: LDL (mg/dL) Date Value 07/30/2017 110 01/18/2016 121 Vitamin B12 (pg/mL) Date Value 07/30/2017 177 07/11/2015 264 TSH Date Value 09/03/2017 2.430 uU/mL 07/30/2017 2.20 uIU/mL Recent Labs 09/07/17 0330 09/06/17 0422 WBC 7.11 7.71 HB 14.7 14.8 HCT 43.4 44.0 PLT 218 233 NA 138 135* K 3.8 3.8 CHLOR 98 97 CO2 30 26 CREAT 0.59* 0.65* BUN 9 9 GLUC 99 83 MG 2.0 2.0 CA 8.8 8.7 MEDICATIONS: No current facility-administered medications on file prior to encounter. Current Outpatient Prescriptions on File Prior to Encounter: benztropine (COGENTIN) 1 mg tablet Take 2 mg by mouth twice daily. haloperidol (HALDOL) 5 mg tablet Take 5 mg by mouth twice daily. carbidopa-levodopa (SINEMET) 25-100 mg per tablet Take 2 tablets by mouth three times daily. Donepezil 23 mg tab Take 1 tablet by mouth daily at bedtime. PAST MEDICAL HISTORY Diagnosis Date - Actinic keratosis - Breast lump LT breast; cavernous hemangioma/excised - Dizziness - Epidermoid cyst of skin - Lipoma of skin forearms and abdomen - Mammogram abnormal suspicious of cancer- referral made - Obesity - On upper doubler drug therapy - Palpitations - Schizophrenia (HCC) - Tremor - Vitamin D deficiency ALLERGIES Allergen Reactions - Goose Feathers Allen* Unknown - Zyprexa [Olanzapine] Unknown Social History Marital status: Single Spouse name: Years of education: Number of children: Social History Main Topics Smoking status: Former Smoker Packs/day: 0.00 Years: 0.00 Smokeless tobacco: Never Used Alcohol use: No Drug use: No Other Topics Concern Caffeine Concern No Comment:none noted Special Diet Not Asked Comment:none noted Exercise Not Asked Comment:none noted FAMILY HISTORY Problem Relation Age of Onset - Family history unknown: Yes Admission Review of Systems Constitutional: Positive for unexpected weight change (unintentional 25 lb weight loss over 2-3 months). Negative for chills and fever. HENT: Positive for trouble swallowing. Negative for voice change. Eyes: Negative for visual disturbance. Respiratory: Negative for cough and shortness of breath. Cardiovascular: Negative for chest pain. Gastrointestinal: Negative for abdominal pain, blood in stool, diarrhea, nausea and vomiting. Genitourinary: Negative for difficulty urinating, frequency, hematuria and urgency. Musculoskeletal: Negative for back pain and neck pain. Skin: Negative for rash. Allergic/Immunologic: Negative for immunocompromised state. Neurological: Positive for dizziness (chronic ) and tremors. Negative for seizures, syncope, facial asymmetry, speech difficulty, weakness, light-headedness and headaches. Hematological: Does not bruise/bleed easily. (ROS personally reviewed) ACTIVE PROBLEM LIST B12 Deficiency Tremors of Nervous System Trouble Swallowing Severe Protein-Calorie Malnutrition (Hcc) Urinary Retention Parkinsonism (Hcc) Schizophrenia (Hcc) NURSING PROG Observed: 09/08/2017 Status: COMPLETED Source: [place] 12:59 AM [facility] REPOSITORY HNO ID: [id number] Author: Nader (Rn) JOSE Patel Service: (none) Author Type: Registered Nurse Type: Nursing Progress Note Filed: 09/08/2017 6:45 AM Note Text: Nursing Progress Note Patient Name: Sherita Jurado Patient Location: [place] [address] [address]* Daily Note: Assumed care of pt at 2300. Pt seen sleeping in bed lying on his side. No signs of distress/discomfort observed. Pt turns and repositions himself in bed. No behavioral issue noted. 0630 Pleasant upon approach. Pt seen with very profound tremors in both arms/hands; seen as involuntary banging his hands in bed. Denies c/o discomfort, denies SI/HI/AVH/delusions. Assisted with morning care, continent of urine. Pt slept 7 hrs throughout the night. This note was completed by: Nader Patel RN CONSULT Observed: 09/08/2017 Status: COMPLETED Source: [place] 12:00 AM [facility] REPOSITORY HNO ID: [id number] Author: Morenita Waldrop Service: (none) Author Type: Physician Type: Consults Filed: 09/16/2017 9:10 PM Note Text: [facility] Consults ORIGINATOR: Morenita Waldrop MD SHERITA JURADO ACCTNUM: [id number] SERVICE: PS LOCATION: ATTENDING PHYSICIAN: Bhavik James M.D. DATE OF SERVICE: 09/08/2017 HISTORY OF PRESENT ILLNESS: The patient is a 71-year-old gentleman who initially was [facility] from skilled nursing with worsening of the tremor, frequent falls, and inability to take care of himself. He was evaluated by Neurology Service and was recommended to have further psychiatric assessment to give assess his drug-induced Parkinson disease versus true Parkinson's. So, he was transferred to [facility] for psychiatric admission and consultation was obtained for medical management. PAST MEDICAL HISTORY: Significant for previous history of Parkinson disease, vitamin D deficiency, history of abnormal mammogram with breast lump, actinic keratosis, and history of schizophrenia. 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 He did not have any surgical history. FAMILY HISTORY: Noncontributory. SOCIAL HISTORY: The patient currently has no history of smoking, drinking, and drugs of abuse. CURRENT MEDICATIONS: Include Tylenol as needed, Maalox as needed. He is on Cogentin 1 mg twice daily, Sinemet 25/100 two tablets 3 times daily, vitamin D 3000 units daily, Haldol 2 times daily 2.5 mg, Aricept 10 mg at bedtime, milk of magnesia as needed, Nicorette gum as needed, Seroquel 12.5 mg twice daily, Flomax 0.4 mg at bedtime, trazodone 50 mg at bedtime as needed, and Geodon 20 mg injections every 6 hours as needed. ALLERGIES: goose feathers allergenic extract, Zyprexa. REVIEW OF SYSTEMS: HEENT: There is no change in vision or hearing. Cardiac: Denies chest pain. Pulmonary: No shortness of breath or cough. GI: Denies abdominal pain. : No dysuria symptoms. Skeletomuscular: No joint aches or pains. Vascular: No previous history of blood clots. Neuro: History of seizures with currently very distinguished tremors in all upper body. Psych: Mental history of schizophrenia. PHYSICAL EXAMINATION: General: The patient is lying in bed. Tremor persists. Vital Signs: Temperature 36.4 with pulse 76, respirations 18, blood pressure 102/49, saturation 98% on room air. Height 179.1 cm, weight 83.4 kilos. HEENT: Pupils equal, round, reactive to light. Neck: Supple. No JVD. Lungs: Clear to auscultation bilaterally. Heart: Regular. No gallop or murmurs. Abdomen: Soft, benign, nontender to palpation. Extremities: Showed no leg edema. Neuro: He is awake, alert. Has significant upper extremity and the whole upper body tremors. LABORATORY DATA: Sodium 138, potassium 3.8, chloride 98, CO2 30, BUN 9, creatinine 0.59, glucose 99, WBC 7.11, hemoglobin 14.7, hematocrit 43.4, platelets 218. Urinalysis showed large amount of hemoglobin with 30-50 RBCs and few bacteria. ASSESSMENT/PLAN: 1. History of Parkinson disease with worsening of the tremors to the point that patient is not able to take care of himself. 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 So, the patient will be seen by Neurology Service while he is in the hospital. Dr. Fernandez is consulted. His medications will need to be adjusted. 2. History of urine retention. Currently does not have folic catheter. Reported to be urinating without difficulty. We will continue with Flomax. 3. Vitamin D deficiency. We will continue with supplements. 4. Dementia, schizophrenia. Will be followed by Psychiatric team. Thank you very much for this consultation. I will follow this patient with you. Morenita Waldrop MD IC:MedQ /[id number] cc: CONSULT Observed: 09/08/2017 Status: COMPLETED Source: [place] 12:00 AM [facility] OTHER CAMPUS REPOSITORY O ID: [id number] Author: Remberto Fernandez MD Service: Neurology Author Type: Physician Type: Consults Filed: 09/22/2017 5:11 AM Note Text: [facility] Consults ORIGINATOR: Remberto Fernandez MD SHERITA JURADO ACCTNUM: [id number] SERVICE: [facility] LOCATION: ATTENDING PHYSICIAN: Bhavik James M.D. DATE OF SERVICE: 09/08/2017 HISTORY OF PRESENT ILLNESS: The patient is a 71-year-old man admitted to the hospital for I am told schizophrenia, consulted Neurology by Dr. James for perceived acute change in neurologic status due to tremors. History is gathered by reviewing selected portions of the chart, electronic chart, by speaking with the patient and the aide, looking after him today. I attempted to contact his primary contact, but was unsuccessful. He is reported to have a history of schizophrenia, has been on neuroleptics including, but not limited to Cogentin, Haldol, Seroquel, Geodon, and I am told Risperdal, which is now off. The patient gives a very poor history saying he has had problems with shaking for 10 months and that his doctor could not do anything about it. However, in this context what I was able to discover by reviewing the electronic chart is that in January 2017, he was noted to have had a history of bilateral tremors, right more than left for 12 years. Perhaps this has been worsening for the last 10 months, become severe and violent, and reportedly associated with 25 pounds weight loss, reduced activities of daily living, falls, and dysphagia. The patient is unable to clarify the history any further. I see that he was evaluated by Neurology, noted to have increased tremor at rest, decreased with activity, and that there was some conjecture about perhaps Risperdal making things worse. He was started on Sinemet, worked up to a dose of 2 pills 3 times a day, reportedly without effect, so it was reduced to 1 pill 3 times a day and there is a note that Requip was not right for him and it was stopped. He has had complications of urinary retention. Ten-system review is otherwise unreliable from the patient and the rest of his 12 system review, the rest of his history, medications, and allergies reviewed and documented on the note accompanying this dictation, otherwise negative or unobtainable except as noted. PHYSICAL EXAMINATION: He is afebrile with a pulse of 83, respirations of 18, blood pressure 115/65. His cardiac rhythm is regular. Lungs are clear anteriorly. Abdomen is soft and nontender. There are no audible carotid bruits. He looks nontoxic. On neurologic exam, he is alert, attentive, and cooperative with fluent language, decreased naming with a proportional fund of knowledge. He has impaired conversational remote recall, but his confrontational recall in the room after assuring the registration was intact even after 15 minutes of distractions. He is oriented to himself, the month, knows he is in a hospital, and says it is a 2 word name, but cannot quite come up with the name Owen. The cranial nerves 2 through 12 seem intact. Focused exam including pupils, visual pérez what I could see of his fundi with posterior segments, ocular motility, facial movement and sensation, tongue, palate, shrug, and symmetric hearing, but he has itsn-oe-ikgssdci hypophonia and hypomimia. Motor exam reveals full confrontational strength in the arms and legs proximally and distally without spasticity. I do think there is a cogwheel rigidity at his right wrist. Sensory exam is reportedly symmetric to touch in the arms and legs, and he does have a symmetric tactile threshold. Coordination is inaccurate because when performing [id number], he has violent shaking. He also develops violent shaking when his hands are postured with hands supine. [id number]-oa-[id number] is poorly executed. 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 Gait was deferred because it is unsafe. During the exam, he exhibits at least 2 different types of tremor. The first is what appears to be a resting tremor of his right hand more than resting tremor of his right foot. There is superimposed violent shaking of both sides of his body, but although the amplitudes and velocities are symmetric, the vectors are not and therefore this is an asynchronous tremor. Occasionally, it takes on the aspect of him slapping the arms of his chair. There is some distractibility associated with that and I observed it is accentuated when he is starting a verbal effort. LABORATORY DATA: I reviewed his workup so far including, but not limited to his normal BMP, calcium, magnesium, blood count. I also personally reviewed the CAT scan of his brain, compared to the most recent prior. It is a motion corrupted study, but within the limits of that there do not appear to be any acute changes. IMPRESSION: 1. Tremors. 2. History of schizophrenia. In summary, he is an elderly man with at least 2 types of tremors. There is what I believe an asymmetric resting tremor that is not entirely consistent with extrapyramidal effects of medications given the asymmetry, but there is also a superimposed violent asynchronous shaking of his whole body with some distractibility that aside from what may or may not be a psychogenic component, I am not entirely capable of explaining. He is reported not to have had a therapeutic benefit from dopaminergic medications and so I think I ought not to adjust those now and feel that [facility] may have more skill at dissecting the different species of shaking and how best to address it. That said, since he is reported to have had some urinary retention and since Cogentin is a possible cause, I would be comfortable if he decided to switch his Cogentin to something like amantadine. Beyond that, I will leave the management of psychiatric medications to the Psychiatry Service, but to the extent that it is safe and effective for him, would prefer agents that are less likely to induce extrapyramidal effects. Thank you for referring the patient for neurologic consultation. Remberto Fernandez MD JL:Williams /[id number] cc: NURSING PROG Observed: 09/07/2017 Status: COMPLETED Source: [place] 9:27 PM [facility] OTHER [place] REPOSITORY HNO ID: [id number] Author: Geraldine (Rn) JOSE Worley Service: (none) Author Type: Registered Nurse Type: Nursing Progress Note Filed: 09/07/2017 9:49 PM Note Text: Nursing Progress Note Patient Name: Sherita Jurado Patient Location: [place] [address] [address]* Daily Note: Pt has been up in the day area in a wheelchair. He is very pleasant on approach. Pt is alert and oriented x 3. He denies pain; says the only thing that hurts are his feelings. He is upset about his tremors which he says have been going on for around 9 months. Pt unable to feed himself or drink. Fed dinner and snacks and ate well. Taking fluids well; drinks with a straw. Quiet. In good control. Denies suicidal ideation, no delusions verbalized. Compliant with all his medications which he took whole. Pt has a depends on but has been continent. He has generalized tremors of his hands that are quite pronounced. This note was completed by: Geraldine Worley RN NURSING PROG Observed: 09/07/2017 Status: COMPLETED Source: [place] 4:28 PM CL[facility] OTHER CAMPUS REPOSITORY HNO ID: [id number] Author: Char Saleem (Rn) JOSE Zhang Service: (none) Author Type: Registered Nurse Type: Nursing Progress Note Filed: 09/07/2017 4:45 PM Note Text: Nursing Progress Note Patient Name: Sherita Jurado Patient Location: [place] [address] [address]* Daily Note: 1600 Obtained admitting orders from Dr. James. He is lowering his cogentin and haldol and starting him on Seroquel 12.5 mg BID. He ordered PRN Geodon 10mg Q 6hrs PRN for agitation. His diet was resumed as dental soft with thin liquids, patient had recent swallow eval while at [facility]. Nutrition consult was ordered along with continued vanilla high protein ensures BID. Patient had a bobo placed for urinary retention on 09-04-17 for inability to void, was straight cathed with 1100 cc output at that time. His flomax that was not on discharge summary was continued on for this admission. Neurology consult was ordered with Dr. Fernandez for his tremors. Patient was placed on fall and aspiration precautions. PT/OT order was placed. Will monitor. This note was completed by: Char Zhang RN ALLIED HEALTH Observed: 09/07/2017 Status: COMPLETED Source: [place] 3:05 PM [facility] REPOSITORY HNO ID: [id number] Author: Shadia SpencerWindow Trimmer Apprentice) Raymon Service: Recreational Therapy Author Type: Therapist Type: Allied Health Filed: 09/07/2017 3:07 PM Note Text: PERSONAL DE-ESCALATION PLAN BEHAVIORAL HEALTH SERVICE DATE: 09/07/2017 SERVICE TIME: 3:05 pm Personal De-Escalation Completed: Yes. PROBLEM BEHAVIORS: What type of behaviors are problems for you: Losing Control What types of things (triggers) make you feel unsafe or upset: not going to the bathroom when I have to go. Please describe your warning signs, for example what other people may notice when you begin to lose control: Bouncing Legs, Can't Sit Still, Irritable and Loud Voice What are some things that help to calm you down or keep you safe: playing chess and holding your hand. What are some things that do NOT help you calm down or stay safe: Not Being Listened To STRENGTHS: What are your strengths when feeling out of control: I am a nice person SKILLS: What skills do you have/what are you good at: I invited the 3D chess. Could you imagine playing chess like that? OTHER: Are you able to communicate to staff when you are having a hard time: Yes What kinds of incentives work for you: I want to get a new neurologist. SIGNATURE: MAINOR Ellis PATIENT NAME: Sherita Jurado DATE: September 07, 2017 TIME: 3:05 PM PAGER/CONTACT #: ALLIED HEALTH Observed: 09/07/2017 Status: COMPLETED Source: [place] 3:02 PM CLINIC OTHER CAMPUS REPOSITORY O ID: [id number] Author: Shadia Ennis (Ctrs) Service: Recreational Therapy Author Type: Therapist Type: Allied Health Filed: 09/07/2017 3:05 PM Note Text: THERAPEUTIC PROGRAMMING ASSESSMENT SERVICE DATE: 09/07/2017 SERVICE TIME: 3:02 pm RECOMMENDATIONS: Cognitive Community Resources Illness/Symptom Management Leisure Skills Relaxation Socialization Stress Management ACTIVITIES OF DAILY LIVING (Difficulty in the following ADL areas): Ambulation: Unsteady Preparing your own meals Taking care of your appearance GENERAL OBSERVATIONS: Affect: Constricted Alert Appearance: Unkempt Communication: Responds when approached Cooperative Mood: Calm ASSESSMENT COMPLETED: Yes: STRESS MANAGEMENT SKILLS: Identified Stressors: I am here looking for a new neurologist. I have been shaking for 9 months now. Effective Coping Strategies Used: Playing chess and holding my hand. Ineffective Coping Strategies Used: per report-patient has been having increased tremors and is unable to attend to ADL's. Patient also is having flashbacks from his past. Describe what you do on an average day: I spend my time at the hospital. INTERESTS: Current: watching wrestling and playing chess. Future: None No Interest: None Past Interest: None PATIENT'S GOALS FOR RECREATIONAL THERAPY PROGRAM: Build more confidence in abilities Channel energy/feelings into constructive outlets Find ways to relax Improve coping skills Improve use of leisure time Maintain physical strength and endurance for normal activity routines SIGNATURE: SHERON EllisS PATIENT NAME: Sherita Jurado DATE: September 07, 2017 TIME: 3:02 PM PAGER/CONTACT #: NURSING PROG Observed: 09/07/2017 Status: COMPLETED Source: [place] 2:31 PM [facility] OTHER CAMPUS REPOSITORY HNO ID: [id number] Author: Char Watts) JOSE Zhang Service: (none) Author Type: Registered Nurse Type: Nursing Progress Note Filed: 09/07/2017 2:48 PM Note Text: Nursing Progress Note Patient Name: Sherita Jurado Patient Location: [place] [address] [address]* Admit Note: Patient arrived on unit at 1311. He is oriented to person place and time. He is pleasant and in control. He had notable tremors of bilateral arms and hands. He denies SI and HI. He states he is here to see a neurologist to help him with his shakes. Patient has a legal guardian Martha Govea [phone]. [facility] His caregiver reported his tremors have been progressively worsening over the last few months and interfering with his ability to perform his own ADL's and feed himself. Since 2017 he reportedly lost 25 lbs and is having frequent falls. He has history of Schizophrenia, Tremors, vitamin D deficiency, palpitations, urinary retention and a breast lump. Patient was elevated by Neurology at [facility] where it was recommended that he be sent [place] to be followed by Neurology and Psychiatrist for medication management. This note was completed by: Char Zhang RN NURSING PROG Observed: 09/07/2017 Status: COMPLETED Source: [place] 2:29 PM [facility] OTHER CAMPUS REPOSITORY HNO ID: [id number] Author: Char Watts) JOSE Zhang Service: (none) Author Type: Registered Nurse Type: Nursing Progress Note Filed: 09/07/2017 2:31 PM Note Text: Nursing Progress Note Patient Name: Sherita Jurado Patient Location: [place] [address] [address]* Transfer Note: Patient transferred [facility] medical unit onto [facility] unit 680-2. Actions taken: Patient was assisted off gurney with 1 assist. He was oriented to unit. Will continue to monitor and check with patient. This note was completed by: Char Zhang RN CASE MANAGEM Observed: 09/07/2017 Status: COMPLETED Source: [place] 11:22 AM [facility] OTHER CAMPUS REPOSITORY [facility] ID: [id number] Author: Celeste (Rn) JOSE Guy Service: Care Management Author Type: Registered Nurse Type: Care Mgt Progress Note Filed: 09/07/2017 12:02 PM Note Text: CARE MANAGEMENT DISCHARGE NOTE SERVICE DATE: 09/07/2017 SERVICE TIME: 11:23 AM CM received call back from Richie at [facility] statin) patient has been assigned bed 680-2, 2) accepting physician is Dr. James, 3) accepting nurse is Celeste who will receive our floor nurse report at [phone], 4) admitting dx is Schizophrenia CM gave information to [facility] and floor nurse. [facility] to arrange for transport. Once pick-up time is know, guardian will be notified. Admission Date: 09/03/2017 DISCHARGE ARRANGEMENT (list agency and phone number) Transfer to [facility] CAREGIVER ASSESSMENT: Caregiver is ready, willing and able to meet the patient's needs as recommended by the inter-professional team? NA Patient's transition needs and plan for meeting these needs: Transfer to [facility] facility Does the patient have an acute stroke diagnosis, or has the patient had a stroke during this admission? No HANDOFF COMMUNICATION: Relationship Specialty Phone Fax Address Order Martha Chowdary MD? Neurology [phone] [address] Next Steps: Follow up David Hidalgo MD? PCP - General Internal Medicine [phone] [place] [address] [place] [address] Next Steps: Follow up Mackenzie Lizarraga MD? Psychiatry [phone] [place] [address] Next Steps: Follow up [facility]? [phone] [address] [facility] [address] Next Steps: Follow up Silva Bell, PHD? Psychology [phone] [address] [facility] [address] Next Steps: Follow up TRANSPORTATION ARRANGEMENTS:via Transfer line. ADDITIONAL CONTACT RESOURCES: Martha Govea ([facility]) [phone] (H) [phone] (M) Needs Prior to Discharge: Other: See Comment (must reapply for [facility] transfer via Central intake) 11:59 AM Guardian notified of transfer. He wants to be kept abreast of patient's status, please. This information was called to Celeste Floor nurse at [facility]. SIGNATURE: YASSINE Ash, RN, ACM-RN PATIENT NAME: Sherita Jurado DATE: September 07, 2017 TIME: 11:23 AM PAGER/CONTACT #: [phone] CASE MANAGEM Observed: 09/07/2017 Status: COMPLETED Source: [facility] 11:08 AM CLINIC OTHER CAMPUS REPOSITORY [facility] ID: [id number] Author: Celeste (Rn) Malena RN Service: Care Management Author Type: Registered Nurse Type: Care Mgt Progress Note Filed: 09/07/2017 11:10 AM Note Text: CARE MANAGEMENT PROGRESS NOTE SERVICE DATE: 09/07/2017 SERVICE TIME: 11:08 AM LOS: 0 days Needs Prior to Discharge: Other: See Comment (must reapply for [facility] transfer via Central intake) CM called Edward at [facility] Central Intake at [phone], option 2, to let him know Dr. Ledesma's note is in chart from today's visit. We will await approval and bed assignment so we can arrange for transfer. Case management to follow. SIGNATURE: YASSINE Ash, RN, ACM-RN PATIENT NAME: Sherita Jurado DATE: September 07, 2017 TIME: 11:08 AM PAGER/CONTACT #: [phone] NUTRITION Observed: 09/07/2017 Status: COMPLETED Source: [place] 11:01 AM [facility] REPOSITORY [facility] ID: [id number] Author: Nga Eagle Service: Nutrition Therapy Author Type: Registered Dietitian Type: Nutrition Filed: 09/07/2017 11:04 AM Note Text: NUTRITION THERAPY PROGRESS NOTE SERVICE DATE: 09/07/2017 SERVICE TIME: 10:50 am RECOMMENDED DIAGNOSIS: SEVERE PROTEIN-CALORIE MALNUTRITION per Registered Dietitian on 09/04/17 NUTRITION CARE PLAN Intervention: Dental soft diet Nutrition supplements Will follow within 5 days or as consulted Monitor and Evaluation: Goal: Meet >75% of estimated needs Discharge Nutrition Recommendations: Diet: Dental soft Supplements: as needed Interval History: Oral intake inadequate, 0-50% of meals. Will provide nutrition supplements, pt receptive. Progress notes and labs reviewed. Admission Weight: 83.5 kg (184 lb) Current Weight: 83.5 kg (184 lb) Body mass index is 26.03 kg/m?. overweight MNT Billing Type: Re-assess/15 min 1 unit SIGNATURE: Nga Eagle RD, LD PATIENT NAME: Sherita Jurado DATE: September 07, 2017 TIME: 11:01 AM PAGER: PROGRESS Observed: 09/07/2017 Status: COMPLETED Source: [facility] 10:58 AM [facility] REPOSITORY [facility] ID: [id number] Author: Dominic Ledesma Service: General Internal Medicine Author Type: Physician Type: Progress Notes Filed: 09/07/2017 11:04 AM Note Text: Patient seen and examined. He remains medical clear as he was yesterday and is awaiting bed availability at [facility] for inpatient psychiatry. Hematuria was likely traumatic from bobo catheter placement and it has since resolved as catheter was removed. Pt is voiding without incident. CASE MANAGEM Observed: 09/07/2017 Status: COMPLETED Source: [facility] 10:46 AM [facility] REPOSITORY [facility] ID: [id number] Author: Celeste SpencerRn) JOSE Guy Service: Care Management Author Type: Registered Nurse Type: Care Mgt Progress Note Filed: 09/07/2017 10:51 AM Note Text: CARE MANAGEMENT PROGRESS NOTE SERVICE DATE: 09/07/2017 SERVICE TIME: 10:46 AM LOS: 0 days Needs Prior to Discharge: Other: See Comment (must reapply for [facility] transfer via Central intake) Received call shara Quiroz in Central Behavorial intake who states Dr. Bennett would like to review a note from Attending from her visit today. Plan is once that is written and reviewed, patient could be transferred. CM contacted Dr. Ledesma with this information. CM reviewed 09/06 note from [facility] Intake. The reason patient has not yet seen Psych physician here is that the scheduled 09/[address] Lizarraga was cancelled (after consultation with Rosette in behavior intake) when we were notified patient had been accepted at [facility] and had a floor assignment. Case management to follow. SIGNATURE: YASSINE Ash, RN, ACM-RN PATIENT NAME: Sherita Jurado DATE: September 07, 2017 TIME: 10:46 AM PAGER/CONTACT #: [phone] CASE MANAGEM Observed: 09/07/2017 Status: COMPLETED Source: [place] 10:02 AM [facility] OTHER CAMPUS REPOSITORY [facility] ID: [id number] Author: Celeste (Rn) JOSE Guy Service: Care Management Author Type: Registered Nurse Type: Care Mgt Progress Note Filed: 09/07/2017 10:17 AM Note Text: CARE MANAGEMENT PROGRESS NOTE SERVICE DATE: 09/07/2017 SERVICE TIME: 10:02 AM LOS: 0 days Needs Prior to Discharge: Other: See Comment (must reapply for [facility] transfer via Central intake) CM called Richie, in central [facility] intake to discuss transfer of patient. He states [facility] staff was reviewing patient's chart and saw hematuria amoung other things, brought these to Dr. Bennett (Director of [facility]-psych floor) and the transfer was denied as patient is not medically stable. Transfer was cancelled last evening. [facility] does not have an available urologist this next week should Patient have issues, Richie reports. CM asked if we got a urologist to eval here. Denies as there were other concerns. No elaboration was given. [facility] Allison may re-apply through central behavior intake again after Friday at [facility] Psych Intake office at [phone], option 2. Reported this to Floor nurse, MENDEZ, CM supervisor properties, Kirby Waggoner, and Dr. Ledesma. CM called Richie at Central intake back requesting MD [id number] discussion. CN gave Baltazar Mckeon's phone number to Richie to give to Dr. Bennett to call our Attending. CM contacted Dr. Ledesma with this update. Awaiting response of [id number]. Case management to follow. SIGNATURE: YASSINE Ash, RN, ACM-RN PATIENT NAME: Sherita Jurado DATE: September 07, 2017 TIME: 10:02 AM PAGER/CONTACT #: [phone] NURSING PROG Observed: 09/07/2017 Status: COMPLETED Source: [place] 7:30 AM CLINIC OTHER CAMPUS REPOSITORY O ID: [id number] Author: Margie (Rn) JOSE Bean Service: Nursing Author Type: Registered Nurse Type: Nursing Progress Note Filed: 09/07/2017 12:18 PM Note Text: Nursing Progress Note Patient Name: Sherita Jurado Patient Location: [id number] Daily Note:0730 - received bedside report; assumed pt care. 0800 - Pt AANDO x 3, pleasant and cooperative with care. Pt with tremors; severity depends on activity; will continue to monitor. Minimal assist pt to bathroom and then to chair for breakfast; assisted pt with breakfast. Assessment completed and noted; see epic. Call light within reach; safety maintained. 1000 - Pt resting in bed; Pt with tremors; severity depends on activity; will continue to monitor. Minimal assist pt to bathroom and then to chair for breakfast; assisted pt with breakfast. Assessment completed and noted; see epic. Call light within reach; safety maintained. 1130 - Report called to JOSE Alonso at [facility]. 1158 - [facility] here to transport. 1210 - pt transferred in stable condition. This note was completed by: Margie Bean RN CBC Collected: 09/07/2017 Status: F Source: [facility] 3:30 AM [facility] OTHER CAMPUS REPOSITORY TYPE CODE TESTS RESULT OUT OF REFERENCE UNITS RANGE LAB WBC 3.70-11.00 k/uL WBC 7.11 LAB RBC 4.20-6.00 m/uL RBC 4.51 LAB HGB 13.0-17.0 g/dL Hemoglobin 14.7 LAB HCT 39.0-51.0 % Hematocrit 43.4 LAB MCV 80.0-100.0 fL MCV 96.2 LAB MCH 26.0-34.0 pG MCH 32.6 LAB MCHC 30.5-36.0 g/dL MCHC 33.9 LAB RDWCV 11.5-15.0 % RDW-CV 12.1 LAB PLTCT 150-400 k/uL Platelet Count 218 LAB MPV 9.0-12.7 fL MPV 9.1 Performed By: #### CBC, BMP, MG1 #### [facility] [address] [facility] [phone] BASIC METABOLIC PANL Collected: 09/07/2017 Status: F Source: [place] 3:30 AM [facility] REPOSITORY TYPE CODE TESTS RESULT OUT OF REFERENCE UNITS RANGE LAB GLU 74-99 mg/dL Glucose 99 Result Comment: The [place] Diabetes Association (ADA) provides guidance for cutoff values for fasting glucose and random glucose. The ADA defines fasting as no caloric intake for at least 8 hours. Fas ting plasma glucose results between 100 to 125 mg/dL indicate increased risk for diabetes (prediabetes). Fasting plasma glucose results greater than or equal to 126 mg/dL meet the criteria for diagnosis of diabetes. In the absence of unequivocal hyperglycemia, results should be confirmed by repeat testing. In a patient with classic symptoms of hyperglycemia or hyperglycemic crisis, random plasma glucose results greater than or equal to 200 mg/dL meet the criteria for diagnosis of diabetes. Reference: Standards of Medical Care in Diabetes 2016, [place] Diabetes Association. Diabetes Care. 2016.39(Suppl 1). LAB BUN 9-24 mg/dL BUN 9 LAB CRET 0.73-1.22 mg/dL Creatinine Low 0.59 LAB NA 136-144 mmol/L Sodium 138 LAB K 3.7-5.1 mmol/L Potassium 3.8 LAB CL 97-105 mmol/L Chloride 98 LAB CO2 22-30 mmol/L CO2 30 LAB AGAP 9-18 mmol/L Anion Gap 10 LAB CA 8.5-10.2 mg/dL Calcium, Total 8.8 LAB GFRAA eGFR- Amer. >60 LAB GFRNAA . eGFR-All Other Races >60 Result Comment: eGFR (Estimated GFR) Units of measure: mL/min/1.73 meters squared eGFR is derived from the reexpressed MDRD Study equation using the following parameters: serum creatinine, age, gender and race. The creatinine assay has been calibrated to be traceable to IDMS. An eGFR <60 mL/min/1.73m2 for >3 months is consistent with chronic kidney disease. Refer to KDOQI guidelines for clinical interpretation. In patients with unstable renal function, e.g. those with acute kidney injury, the eGFR may not accurately reflect actual GFR. Performed By: #### CBC, BMP, MG1 #### [facility] [address] [place], [place] [id number] MAGNESIUM Collected: 09/07/2017 Status: F Source: [facility] 3:30 AM [facility] REPOSITORY TYPE CODE TESTS RESULT OUT OF REFERENCE UNITS RANGE LAB MG 1.7-2.3 mg/dL Magnesium 2.0 Performed By: #### CBC, BMP, MG1 #### [facility] [address] [place], [place] [id number] NURSING PROG Observed: 09/06/2017 Status: COMPLETED Source: [facility] 9:30 PM [facility] REPOSITORY [facility] ID: [id number] Author: Estelita (Rn) Ciro, RN Service: (none) Author Type: Registered Nurse Type: Nursing Progress Note Filed: 09/07/2017 5:53 AM Note Text: Nursing Progress Note Patient Name: Sherita Jurado [id number] 1900- Assumed care of patient. Patient laying in bed watching TV. Patient denies any pain at this time. Patient continues to have uncontolled tremors. Patient assisted to drink water. Patient denies any other needs at this time. 2030- Patient ambulated to the bathroom without calling for help. Patient stated he urinated. When asked if he felt like he emptied his bladder he said yes and also stated he had a bowel movement. 2100- Patient laying in bed watching tv. Denies any complaints or needs at this time. 2300- Patient resting in bed. Bed alarm is on. Patient attempting to get out of bed frequently unassisted and going into the bathroom. Patient reoriented to use of the call light to call for assistance if he needs to get out of the bed. ICPs are off due to patient not wanting them on. Call light is within patients reach. 0100- Patient resting in bed with eyes closed. Respirations even and unlabored. No s/s of distress. Call light in reach. 0300- Patient laying in bed with eyes closed. Respirations even and unlabored. No s/s of distress. Patient was able to void 800ml. Call light is in reach. Bed alarm is on. 0500- Patient laying in bed. Respirations even and unlabored. No s/s of distress. Call light in reach. Bed alarm on. This note was completed by: Dora Tanner RN CASE MANAGEM Observed: 09/06/2017 Status: COMPLETED Source: [facility] 8:14 PM CLINIC OTHER CAMPUS REPOSITORY O ID: [id number] Author: Sakshi Smith (Sw) Service: Care Management Author Type: Mathematics Faculty Member Type: Care Mgt Progress Note Filed: 09/06/2017 8:22 PM Note Text: CARE MANAGEMENT PROGRESS NOTE SERVICE DATE: 09/06/2017 SERVICE TIME: 7:10 PM LOS: 0 days Needs Prior to Discharge: Other: See Comment (medical clearance) Per chart review, pt NOT accepted by inpt psych d/t blood in urine, medical unit was notified by central intake. [employer] spoke with bedside nurse, plan at this time for catheter to be removed, pt to re-evaluated by medical staff, and once medically cleared will be presented to central intake again. Per nurse, previously scheduled transportation was canceled. [employer] left for pt's guardian/Bill [phone] notifying him that pt was not transferred to [facility] today as planned, but will likely be transferred to [facility] once medically cleared. Case management to remain available for d/c planning and assist as needed. SIGNATURE: BRIELLE Diaz PATIENT NAME: Sherita Jurado DATE: September 06, 2017 TIME: 8:14 PM PAGER/CONTACT #: [phone] CNDS Observed: 09/06/2017 Status: COMPLETED Source: [facility] 4:06 PM CLIN[facility] OTHER CAMPUS REPOSITORY [facility] ID: [id number] Author: Dominic Ledesma Service: General Internal Medicine Author Type: Physician Type: Discharge Summaries Filed: 09/07/2017 2:44 PM Note Text: DISCHARGE SUMMARY ? PATIENT NAME: Sherita Jurado ADMISSION DATE: 09/03/2017 DISCHARGE DATE: 09/07/2017 ? ATTENDING PHYSICIAN: Dominic Ledesma ? REASON FOR HOSPITALIZATION: Tremors ? DIAGNOSIS: Active Problems: B12 deficiency Tremors of nervous system Trouble swallowing Severe protein-calorie malnutrition (HCC) Urinary retention Parkinsonism (HCC) Resolved Problems: * No resolved hospital problems. * ? OPERATIONS DURING HOSPITALIZATION: None ? PROCEDURES DURING HOSPITALIZATION: No procedures performed ? HOSPITAL COURSE: 71 Y M with PMH of schizophrenia, dizziness, resting tremor, vitamin D deficiency who lives in skilled nursing, comes in for evaluation of worsening tremors for last 2 months, difficulty performing his ADL's and frquent falls. He was seen by neurology who recommended transfer to inpatient [facility] for neuro and psych collaboration as it is unclear if he has drug induced parkinson's vs true parkinson's. He was accepted at [facility], given a pink slip. He was medically clear at time of d/c ? LABS AND PROCEDURES PENDING AT DISCHARGE: No pending results. ? CONSULTING TEAMS DURING HOSPITALIZATION: neurology ? PATIENT CONDITION AT DISCHARGE: Stable ? DISCHARGE DISPOSITION: transfer to the [facility] inpatient [facility] ? Discharge Physical Exam: VITAL SIGNS: BP 155/83 Pulse 101 Temp 36.6 ?C (97.9 ?F) (Oral) Resp 18 Ht 179.1 cm (5' 10.5) Wt 83.5 kg (184 lb) SpO2 92% BMI 26.03 kg/m? GENERAL: Alert, no distress, cooperative, tremulous, bobo in place SKIN: Skin color, texture, turgor normal. LUNGS: Lungs clear to auscultation, Good diaphragmatic excursion CARDIAC: Normal S1 and S2; no rubs, murmurs, or gallops ABDOMEN: Abdomen soft, non-tender, BS normal, No masses or organomegaly EXTREMITIES: Extremities normal, no deformities, edema, clubbing or skin discoloration. ? ? INFORMATION PROVIDED TO PATIENT: (To pull info documented from the DC Instruct Orderset Complete O/S First): none ? DISCHARGE MEDICATION: Current Discharge Medication List ? CONTINUE these medications which have NOT CHANGED ? benztropine (COGENTIN) 2 mg Take 2 mg by mouth twice daily. ? Refills: 0 ? haloperidol (HALDOL) 5 mg Take 5 mg by mouth twice daily. ? Refills: 0 ? carbidopa-levodopa (SINEMET 25-100) 2 tablets Take 2 tablets by mouth three times daily. ? ? OTC PRODUCT CBD oil 5 drops 3 times daily highest dose. This was recommended by psychiatrist ? Vitamin D 1,000 Units Take 1,000 Units by mouth once daily. ? donepezil (ARICEPT) 1 tablet Take 1 tablet by mouth daily at bedtime. ? ? ? FUTURE APPOINTMENTS: Follow Up with PCP: David Hidalgo MD ? TIME OF CARE (Use first blank if not applicable): TIME OF CARE: Discharge Management: I personally spent greater than 30 minutes involved in the discharge management of this patient. ? SIGNATURE: Doimnic Ledesma MD PATIENT NAME: Sherita Jurado DATE: September 07, 2017 TIME: 2:58 PM PAGER/CONTACT #: [phone] ? HISTORY PHYSICAL Observed: 09/06/2017 Status: COMPLETED Source: [facility] 2:58 PM CLINIC OTHER CAMPUS REPOSITORY O ID: [id number] Author: Dominic Ledesma Service: General Internal Medicine Author Type: Physician Type: HANDP Filed: 09/06/2017 3:00 PM Note Text: DISCHARGE SUMMARY PATIENT NAME: Sherita Jurado ADMISSION DATE: 09/03/2017 DISCHARGE DATE: 09/06/2017 ATTENDING PHYSICIAN: Dominic Ledesma REASON FOR HOSPITALIZATION: Tremors DIAGNOSIS: Active Problems: B12 deficiency Tremors of nervous system Trouble swallowing Severe protein-calorie malnutrition (HCC) Urinary retention Parkinsonism (HCC) Resolved Problems: * No resolved hospital problems. * OPERATIONS DURING HOSPITALIZATION: None PROCEDURES DURING HOSPITALIZATION: No procedures performed HOSPITAL COURSE: 71 Y M with PMH of schizophrenia, dizziness, resting tremor, vitamin D deficiency who lives in skilled nursing, comes in for evaluation of worsening tremors for last 2 months, difficulty performing his ADL's and frquent falls. He was seen by neurology who recommended transfer to inpatient psych for neuro and psych collaboration as it is unclear if he has drug induced parkinson's vs true parkinson's. He was accepted at the [facility], given a pink slip. He was medically clear at time of d/c LABS AND PROCEDURES PENDING AT DISCHARGE: No pending results. CONSULTING TEAMS DURING HOSPITALIZATION: neurology PATIENT CONDITION AT DISCHARGE: Stable DISCHARGE DISPOSITION: transfer to the [facility] inpatient psych Discharge Physical Exam: VITAL SIGNS: BP 155/83 Pulse 101 Temp 36.6 ?C (97.9 ?F) (Oral) Resp 18 Ht 179.1 cm (5' 10.5) Wt 83.5 kg (184 lb) SpO2 92% BMI 26.03 kg/m? GENERAL: Alert, no distress, cooperative, tremulous, bobo in place SKIN: Skin color, texture, turgor normal. LUNGS: Lungs clear to auscultation, Good diaphragmatic excursion CARDIAC: Normal S1 and S2; no rubs, murmurs, or gallops ABDOMEN: Abdomen soft, non-tender, BS normal, No masses or organomegaly EXTREMITIES: Extremities normal, no deformities, edema, clubbing or skin discoloration. INFORMATION PROVIDED TO PATIENT: (To pull info documented from the DC Instruct Orderset Complete O/S First): none DISCHARGE MEDICATION: Current Discharge Medication List CONTINUE these medications which have NOT CHANGED benztropine (COGENTIN) 2 mg Take 2 mg by mouth twice daily. Refills: 0 haloperidol (HALDOL) 5 mg Take 5 mg by mouth twice daily. Refills: 0 carbidopa-levodopa (SINEMET 25-100) 2 tablets Take 2 tablets by mouth three times daily. OTC PRODUCT CBD oil 5 drops 3 times daily highest dose. This was recommended by psychiatrist Vitamin D 1,000 Units Take 1,000 Units by mouth once daily. donepezil (ARICEPT) 1 tablet Take 1 tablet by mouth daily at bedtime. FUTURE APPOINTMENTS: Follow Up with PCP: David Hidalgo MD TIME OF CARE (Use first blank if not applicable): TIME OF CARE: Discharge Management: I personally spent greater than 30 minutes involved in the discharge management of this patient. SIGNATURE: Dominic Ledesma MD PATIENT NAME: Sherita Jurado DATE: September 06, 2017 TIME: 2:58 PM PAGER/CONTACT #: [phone] PROGRESS Observed: 09/06/2017 Status: COMPLETED Source: [place] 2:15 PM [facility] OTHER [place] REPOSITORY HNO ID: [id number] Author: Dominic Monet) Baltazar Service: General Internal Medicine Author Type: Physician Type: Progress Notes Filed: 09/06/2017 2:15 PM Note Text: Bed available at [place]. Patient medically clear for transfer. Will place dc orders and pink slip shortly. CASE MANAGEM Observed: 09/06/2017 Status: COMPLETED Source: [place] 2:15 PM [facility] OTHER [place] REPOSITORY HNO ID: [id number] Author: Celeste SpencerRn) JOSE Guy Service: Care Management Author Type: Registered Nurse Type: Care Mgt Progress Note Filed: 09/06/2017 4:26 PM Note Text: CARE MANAGEMENT PROGRESS NOTE SERVICE DATE: 09/06/2017 SERVICE TIME: 01:50 PM Returned call from Rosette at [facility] Psych Intake office at [phone], option 2, stating patient has been accepted to [facility] - Psych floor by Dr. Bhavik James. Discussed that patient has not yet been evaluated by Dr Lizarraga, our psych MD. She states this will not hold us up as he has already been accepted. What she needs is: 1) Order from Medical MD stating patient is medically cleared for transfer to [facility]patient [facility]; 2) [place] Slip as patient is deemed unable to voluntarily sign himself in CM huddles with Floor nurse, Margie, and Kylee SIMMS, as well as called Hospitalist, Dr. Ledesma. Dr Zia amador will be cancelled, transportation with be started per MENDEZ, and Dr. Ledesma will start the DC orders and [place] Slip. LOS: 0 days Admission Date: 09/03/2017 DISCHARGE ARRANGEMENT (list agency and phone number) Inpatient psych facility at [facility] CAREGIVER ASSESSMENT: Caregiver is ready, willing and able to meet the patient's needs as recommended by the inter-professional team? No Patient's transition needs and plan for meeting these needs: Transfer to In-pt Psych facility Does the patient have an acute stroke diagnosis, or has the patient had a stroke during this admission? No HANDOFF COMMUNICATION: Via Summary of Care at Discharge to: Relationship Specialty Phone Fax Address Order Martha Chowdary MD? Neurology [phone] [address] [address] Next Steps: Follow up David Hidalgo MD? PCP - General Internal Medicine [phone] [address] [place] [address] Next Steps: Follow up Mackenzie Lizarraag MD? Psychiatry [phone] [address] [place] [address] Next Steps: Follow up Silva Bell, PHD? Psychology [phone] [address] [facility] [address] Next Steps: Follow up TRANSPORTATION ARRANGEMENTS: via transfer line ADDITIONAL CONTACT RESOURCES: Martha Govea (Ino) [phone] (H) [phone] (M) called Mr. Govea who states he received a call about 1 hours ago about the transfer to [facility] [place]. Also discussed a pink slip that will also be signed, and what that means. Needs Prior to Discharge: To Be Determined;Other: See Comment (transfer to [facility]patient [facility] hospital) SIGNATURE: YASSINE Ash, RN, ACM-RN PATIENT NAME: Sherita Jurado DATE: September 06, 2017 TIME: 2:15 PM PAGER/CONTACT #: [phone] NURSING PROG Observed: 09/06/2017 Status: COMPLETED Source: [facility] 7:30 AM CLINIC OTHER CAMPUS REPOSITORY O ID: [id number] Author: Margie (Rn) JOSE Bean Service: Nursing Author Type: Registered Nurse Type: Nursing Progress Note Filed: 09/07/2017 8:36 AM Note Text: Nursing Progress Note Patient Name: Sherita Jurado Patient Location: [place] [address]/[id number] Daily Note:0730 - received bedside report; assumed pt care. 0800 - pt is AANDO x 3, pleasant and cooperative with care. Pt denies pain and/or discomfort at this time; will continue to monitor. Pt noted to have tremors which greatly increase with any activity. Assessment completed and noted; see epic. Call light within reach; safety maintained. 1000 - Pt resting in bed; denies needs at this time. No acute distress noted; will continue to monitor. Call light within reach; safety maintained. 1200 - Pt resting in bed; denies needs at this time. No acute distress noted; will continue to monitor. Call light within reach; safety maintained. 1400 - Pt resting in bed; denies needs at this time. No acute distress noted; will continue to monitor. Call light within reach; safety maintained. 1600 - Pt resting in bed; denies needs at this time. No acute distress noted; will continue to monitor. Pt with tremors, severity depends on activity. Call light within reach; safety maintained. 1730 - [facility] called to say they are unable to accept pt at this time mohan spencer MD and Case management aware. 1750 - Jihan removed per physicians orders. Pt resting in bed; denies needs at this time. No acute distress noted; will continue to monitor. Pt with tremors, severity depends on activity. Call light within reach; safety maintained. This note was completed by: Margie BeanRN URINALYSIS Collected: 09/06/2017 Status: F Source: [facility] 5:30 AM CLINIC OTHER CAMPUS REPOSITORY TYPE CODE TESTS RESULT OUT OF RANGE REFERENCE UNITS LAB UCOL Yellow Color Yellow LAB [facility] Clear Clarity Clear LAB UGLUC Negative mg/dL Glucose, Negative Urine LAB UBIL Negative Abnormal Bilirubin, Small Alert Urine Result Comment: Suggest correlation with clinical findings and serum bilirubin if clinically indicated. LAB UKET Negative Abnormal Ketones, Urine 15 Alert LAB USPG 1.001-1.029 Specific [place], Ur 1.020 LAB UHGB Negative Abnormal Alert Hemoglobin/Blood,U Large r LAB UPH 5.0-8.0 pH 6.5 LAB UPROT Negative mg/dL Abnormal Protein, Urine 30 Alert LAB UUROB 0.2-1.0 Urobilinogen 1.0 LAB UNITR Negative Nitrites Negative LAB ULKEST Negative Leukest Negative Performed By: #### UA, UAMIC #### [facility] [address] [facility] [phone] URINE MICROSCOPIC Collected: 09/06/2017 Status: F Source: [facility] (FOR LAB USE ONLY) 5:30 AM [facility] OTHER CAMPUS REPOSITORY TYPE CODE TESTS RESULT OUT OF RANGE REFERENCE UNITS LAB UWBC 0-5 /HPF WBC 0-5 LAB URBC 0-3 /HPF Abnormal Alert RBC 30-50 LAB UCAST 0 /LPF Cast SEE COMMENT Result Comment: 0 LAB UBACT 0 /HPF Abnormal Alert Bacteria Few LAB UCRYS 0 /HPF Abnormal Alert Crystals SEE COMMENT Result Comment: Occasional Amorphous Performed By: #### UA, UAMIC #### [facility] [address] [place] [address] Observed: 09/06/2017 Status: F Source: [facility] URINE CULTURE 5:30 AM [facility] OTHER [place] REPOSITORY Culture Result - <10,000 CFU/ml Normal urogenital na Performed By: #### URCUL #### [facility] [address] [place] [address] CBC Collected: 09/06/2017 Status: F Source: [facility] 4:22 AM [facility] OTHER [place] REPOSITORY TYPE CODE TESTS RESULT OUT OF REFERENCE UNITS RANGE LAB WBC 3.70-11.00 k/uL WBC 7.71 LAB RBC 4.20-6.00 m/uL RBC 4.54 LAB HGB 13.0-17.0 g/dL Hemoglobin 14.8 LAB HCT 39.0-51.0 % Hematocrit 44.0 LAB MCV 80.0-100.0 fL MCV 96.9 LAB MCH 26.0-34.0 pG MCH 32.6 LAB MCHC 30.5-36.0 g/dL MCHC 33.6 LAB RDWCV 11.5-15.0 % RDW-CV 12.0 LAB PLTCT 150-400 k/uL Platelet Count 233 LAB MPV 9.0-12.7 fL MPV 9.5 Performed By: #### CBC, BMP, MG1 #### [facility] [address] [facility] [phone] BASIC METABOLIC PANL Collected: 09/06/2017 Status: F Source: [facility] 4:22 AM CLINIC OTHER CAMPUS REPOSITORY TYPE CODE TESTS RESULT OUT OF REFERENCE UNITS RANGE LAB GLU 74-99 mg/dL Glucose 83 Result Comment: The [place] Diabetes Association (ADA) provides guidance for cutoff values for fasting glucose and random glucose. The ADA defines fasting as no caloric intake for at least 8 hours. Fas ting plasma glucose results between 100 to 125 mg/dL indicate increased risk for diabetes (prediabetes). Fasting plasma glucose results greater than or equal to 126 mg/dL meet the criteria for diagnosis of diabetes. In the absence of unequivocal hyperglycemia, results should be confirmed by repeat testing. In a patient with classic symptoms of hyperglycemia or hyperglycemic crisis, random plasma glucose results greater than or equal to 200 mg/dL meet the criteria for diagnosis of diabetes. Reference: Standards of Medical Care in Diabetes 2016, [place] [employer]. Diabetes Care. 2016.39(Suppl 1). LAB BUN 9-24 mg/dL BUN 9 LAB CRET 0.73-1.22 mg/dL Creatinine Low 0.65 LAB NA 136-144 mmol/L Sodium Low 135 LAB K 3.7-5.1 mmol/L Potassium 3.8 LAB CL 97-105 mmol/L Chloride 97 LAB CO2 22-30 mmol/L CO2 26 LAB AGAP 9-18 mmol/L Anion Gap 12 LAB CA 8.5-10.2 mg/dL Calcium, Total 8.7 LAB GFRAA eGFR- Amer. >60 LAB GFRNAA . eGFR-All Other Races >60 Result Comment: eGFR (Estimated GFR) Units of measure: mL/min/1.73 meters squared eGFR is derived from the reexpressed MDRD Study equation using the following parameters: serum creatinine, age, gender and race. The creatinine assay has been calibrated to be traceable to IDMS. An eGFR <60 mL/min/1.73m2 for >3 months is consistent with chronic kidney disease. Refer to KDOQI guidelines for clinical interpretation. In patients with unstable renal function, e.g. those with acute kidney injury, the eGFR may not accurately reflect actual GFR. Performed By: #### CBC, BMP, MG1 #### [facility] [address] [facility] [phone] MAGNESIUM Collected: 09/06/2017 Status: F Source: [facility] 4:22 AM [facility] REPOSITORY TYPE CODE TESTS RESULT OUT OF REFERENCE UNITS RANGE LAB MG 1.7-2.3 mg/dL Magnesium 2.0 Performed By: #### CBC, BMP, MG1 #### [facility] [address] [facility] [phone] NURSING PROG Observed: 09/05/2017 Status: COMPLETED Source: [facility] 11:47 PM [facility] REPOSITORY HNO ID: [id number] Author: Kendal (Rn) JOSE Mott Service: (none) Author Type: Registered Nurse Type: Nursing Progress Note Filed: 09/06/2017 12:44 AM Note Text: Nursing Progress Note Patient Name: Sherita Jurado Patient Location: [place] [address]/[id number] Daily Note:09/05/171924 Bedside report from RN. Tremors not observed. Patient denies pain or discomforts. 2024 Assessment completed and HS medications administered, severe tremors noted, but quickly slowed down after patient decreases activity. Pill taken without issues with water. Safety maintained with bed alarm in use. 2140 Patient observed sleeping, no visible distress noted. No tremors observed. 0 Patient observed sleeping, no visible distress noted. No tremors observed. 2300 Patient awake in bed, denies pain. Very fine tremors noted. Safety maintained with bed alarm in use. This note was completed by: Kendal Mott RN CONSULT PROG Observed: 09/05/2017 Status: COMPLETED Source: [facility] 4:35 PM [facility] REPOSITORY HNO ID: [id number] Author: Martha Chowdary Jr. Service: Neurology Author Type: Physician Type: Consult Progress Note Filed: 09/09/2017 9:24 AM Note Text: INPATIENT PROGRESS NOTE SERVICE DATE: 09/05/2017 SERVICE TIME: 4:35 PM Subjective SERVICE: Neurology INTERVAL HPI: No change in status. Continues to have resting tremors. Current hospital medications: cyanocobalamin 1,000 mcg injection 1,000 mcg INTRAMUSCULAR DAILY tamsulosin ER 0.4 mg cap(s) (FLOMAX) 0.4 mg ORAL AT BEDTIME benztropine 2 mg tab(s) (COGENTIN) 2 mg ORAL BID carbidopa-levodopa 25-100 mg 2 tablet (SINEMET 25-100) 2 tablet ORAL TID haloperidol 5 mg tab(s) (HALDOL) 5 mg ORAL BID donepezil (ARICEPT) tab(s) 22.5 mg 22.5 mg ORAL AT BEDTIME 0.9% NaCl 3-5 mL 3-5 mL INTRAVENOUS q 12 H Objective PHYSICAL EXAM: GENERAL EXAM: General appearance: NAD, pleasant. Masked facies. Mildly hypophonic. HEENT: NC/AT. Lungs: CTA bilaterally. CV: RRR nl S1, S2. Extr: No cyanosis, clubbing or edema. Skin: Cool to touch. No rash. ? NEUROLOGICAL EXAM: General: Awake, alert, language fluent, no dysarthria. CN: PERRL, fundi with no evidence of papilledema, EOMI and without nystagmus, VFF to confrontation, facial sensation and strength are normal and symmetric, hearing is intact to finger rub bilaterally, palate and tongue movements are intact and symmetric. SCM and trapezius strength normal. Motor: Strength (5/5) bilaterally (throughout extremities x4). Bulk symmetric. Tone increased x4 exts. Coordination: FNF, RAYMON intact but with superimposed tremors (mild). Tremors are of pill-rolling nature. Start in L hand at rest, and long rests, begin to spread to involve bilateral lower exts and then head. Tremor improves and actually resolves with activity, but as soon as extremities come to rest, tremor reappears. Sensation: Light touch, pin intact throughout. No evidence of neglect. Patient Vitals for the past 24 hrs: BP Temp Temp src Pulse Resp SpO2 09/05/17 1551 140/72 36.8 ?C (98.2 ?F) Oral 109 18 92 % 09/05/17 1158 135/86 - Oral 99 16 92 % 09/05/17 0804 121/73 36.9 ?C (98.4 ?F) Oral 77 19 91 % 09/05/17 0354 121/67 36.4 ?C (97.5 ?F) Oral 76 18 92 % 09/04/179 126/56 - - 90 - - 09/04/17 2336 (!) 202/131 - Oral 89 18 97 % 09/04/172006 102/58 36.7 ?C (98.1 ?F) Oral 80 20 93 % Body mass index is 26.03 kg/m?. DATA: Diagnostic tests reviewed for today's visit: Most recent labs and imaging results. WBC (k/uL) Date Value 09/05/2017 7.43 09/04/2017 6.76 09/03/2017 7.62 RBC (m/uL) Date Value 09/05/2017 4.68 09/04/2017 4.71 09/03/2017 4.79 Platelet Count (k/uL) Date Value 09/05/2017 228 09/04/2017 247 09/03/2017 249 BUN (mg/dL) Date Value 09/05/2017 10 09/04/2017 10 09/03/2017 10 Creatinine (mg/dL) Date Value 09/05/2017 0.66 09/04/2017 0.66 09/03/2017 0.69 CBC, Coags, BMP, Mg, Phos Recent Labs 09/05/17 0333 09/04/17 0335 09/03/17 1528 NA 134* 136 136 K 3.6* 4.0 3.9 CHLOR 96* 97 96* CO2 26 27 28 GLUC 97 88 89 CA 9.0 8.9 9.4 MG 2.1 2.2 2.1 Liver Function, Amylase, AND Lipase Recent Labs 09/03/17 1528 TPROT 7.8 ALB 3.9 ALT 6* AST 15 ALKPHOS 69 TBILI 0.7 Assessment/Plan Patient with tremors that appear to be in nature of parkinsonism. 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 In addition despite being tried on Carbidopa/Levodopa (Sinemet), antipsychotics, such as Haldol, reduce the efficacy of Levodopa. At this point, my initial recommendation would be discontinuation of Haldol and if anti-psychotic needed, would recommend use of Seroquel. However, I do not feel comfortable discontinuing or changing anti-psychotic medication without psychiatry being on board. In addition, at this point Sinemet likely resulting in no improvement or influence on symptoms, and would recommend that it at least be reduced to 1 tablet with breakfast, lunch and dinner before being further reduced and discontinued. For treatment of parkinsonism once anti-psychotic changed, would then recommend trial of Artane (anticholinergic) with possible retrial of amantadine. Again, given patient's history of schizophrenia, and doses of medication that patient is on, I do not feel comfortable changing antipsychotics unless psychiatry also on board. It may best serve patient to be admitted to an inpatient psychiatry unit where both neurology and psychiatry can evaluate patient through medication changes. ? SIGNATURE: Martha Chowdary MD PATIENT NAME: Sherita Jurado DATE: September 05, 2017 TIME: 4:35 PM PAGER: [phone] US KIDNEY/BLADDER Observed: 09/05/2017 Status: F Source: [facility] 10:42 AM CLINIC OTHER CAMPUS REPOSITORY * * *Final Report* * * DATE OF EXAM: Sep 05 2017 10:42AM U 1055 - US KIDNEY/BLADDER / PROCEDURE REASON: Bladder outlet symptoms, BPH suspected * * * * Physician Interpretation * * * * EXAMINATION: RENAL ULTRASOUND HISTORY: Bladder outlet symptoms, BPH suspected TECHNIQUE: Sonography of the kidneys and urinary bladder was performed. Images were obtained and stored in a permanent archive. MQ: UR_1 COMPARISON: None RESULT: Right Kidney: -Renal length: 12.7 cm -Parenchyma: Normal echogenicity -Collecting system: No hydronephrosis on the RIGHT side -Calculus: No stones in either kidney -Lesion: No masses Left Kidney: -Renal length: 12.8 cm cm -Parenchyma: Normal echogenicity -Collecting system: No hydronephrosis on the LEFT side -Calculus: No stones in either kidney -Lesion: Simple cyst upper pole 1.5 cm in size. Simple cysts lower pole 4.7 cm in size. Bladder: Bladder is unremarkable IMPRESSION: 2 simple cysts in the LEFT kidney. Search Engine Optimization Analyst: WILLOW Transcribe Date/Time: Sep 05 2017 11:18A Dictated by : PAULO BILLS DO This examination was interpreted and the report reviewed and electronically signed by: PAULO BILLS DO on Sep 05 2017 11:19AM EST [id number] THERAPY NT Observed: 09/05/2017 Status: COMPLETED Source: [facility] 9:41 AM CLINIC OTHER CAMPUS REPOSITORY HNO ID: [id number] Author: Amanda Shepherd/Hay Varner Service: Occupational Therapy Author Type: Occupational Therapist Type: Therapy (PT/OT/Speech/Resp) Filed: 09/05/2017 11:27 AM Note Text: Attestation signed by Samira Garcia at 09/15/2017 7:20 PM Samira Garcia APRN.CNP 09/15/2017 7:20 PM Occupational Therapy Evaluation SERVICE DATE: 09/05/2017 SERVICE TIME: 847 to 927 ROOM: [place] [address] Recommended Discharge Disposition: Acute Rehab Recommended Discharge Disposition Comments: Pt is functioning well below baseline, is a HIGH fall risk and medically complex, indicating need for intensive OT services to increase safety, ease and independence during ADLs and functional mobility for optimal quality of life and safety. Justification For Post Acute Needs: Living the community premorbidly;Medically complex;Willing to participate;Anticipate patient will tolerate 3 hours of daily therapy at the time of admission to post-acute setting;Good premorbid functional status Anticipated Discharge Needs: Undetermined OT Recommendations to Nursing: ADL?s in chair;OOB for meals;Edge of bed ADL?s;Transfer to Chair;With assist of 1 person;Utilize bed in Chair Position;Bedside Commode for Toileting Equipment: (gait belt; bed/chair alarms) OT 6 Clicks Score: 10 Precautions/Activity Restrictions: Fall Risk;Bed/Chair Alarm;Other: See Comments (assist for feeding) ASSESSMENT: Pt presents with significant BUE/BLE tremors (increased at rest and in supine), impaired functional mobility, ADL performance, balance, strength and functional activity tolerance, impacting his ability to function without assist from caregivers. Pt also with cognitive deficits (AANDOx1) and visual deficits, further impacting ability to safely perform functional tasks without assistance. Requires Moderate-Total Assistance for ADLs and CGA-Minimal Assistance for functional mobility/transfers. Pt is functioning well below baseline, is a HIGH fall risk and medically complex (see below), indicating need for intensive OT services to increase safety, ease and independence during ADLs and functional mobility for optimal quality of life and safety. Patient Disposition at Start of Session: Supine in Bed Patient Disposition at End of Session: OOB in Chair;Call [place] in Reach; Chair Alarm; Tray table in front of patient (declined phone); noted decrease in tremors Tolerated Full Session Occupational Therapy Problem List: Cognitive Deficit;Education Deficit;Safety Deficits;Impaired Self Care;Decreased Activity Tolerance;Decreased Strength;Functional Mobility Impairment;Balance Impaired;Impaired Fine Motor Skills Patient /Caregiver Goals: Go To Rehab Goals for Plan of Care: Able to perform HEP with: Modified Independent (for BUE strengthening/coordination) Feeding with: Minimal Assistance Grooming with: Stand By Assistance (seated) Upper Body Bathing with: Minimal Assistance Upper Body Dressing with: Minimal Assistance Lower Body Bathing with: Minimal Assistance Lower Body Dressing with: Minimal Assistance Toilet Hygiene with: Minimal Assistance Chair Transfer with: Stand By Assistance Toilet Transfer with: Stand By Assistance Additional Goal 1: Pt will identify 3 positive leisure activities able to participate in, for increased quality of life. Increased Awareness of Cognitive Impairments as Related to ADL's/IADL's: Demonstrated Progress Toward Goals: Progressing slower than expected Due To: tremors Rehab Potential: Good PLAN: Treatment Frequency (times per week): 4 Current admission Treatment Interventions: Education;Self Care / Home Management;Energy Conservation Training;Strengthening;Functional Mobility Training;Balance Training;Neuromuscular Re-education;Cognitive Training;Joint Mobility Plan of Care developed with: Patient TREATMENT INTERVENTIONS: Therapy Diagnosis: Decreased activities of daily living (ADL) Interventions Provided: Evaluation;Self Custodial Management (61136) $ Evaluation-Moderate (47375) Billed Units: 1 unit Self Custodial Management (08276) Treatment Minutes: 12 1 unit Skilled Intervention(s): Pt educated in role of OT. Pt educated in importance of out of bed activity (active participation in daily care, sitting in chair for meals and throughout day if asymptomatic) for rehabilitation and to prevent functional decline and other negative effects of immobility. Pt educated and cued in assessing self for dizziness/lightheadedness upon changes in position and to allow time for body to accommodate to changes in position. Pt instructed, verbally cued and facilitated with safe technique for supine to sit, and effective use of BUEs to scoot to EOB for proper sitting balance/posture at EOB. Provided instruction, verbal cuing and facilitation to comb hair (bilateral hands), and complete upper/lower body bathing and application of deodorant while seated EOB. Verbal cues provided intermittently for seated rest breaks. Pt instructed, verbally/visually cued and facilitated with safe technique for sit to stand, and instructed to initially regain/maintain static standing balance prior to initiating functional mobility to chair. Pt facilitated with safe technique for stand pivot (modified with small steps) to bedside chair. Pt instructed, verbally cued and facilitated with proper technique for stand to sit. Pt educated in importance of use of call button for all needs and to call and wait for nursing/therapist assistance for all out of bed/chair activity. Call button modified with tactile button, as pt initially unable to correctly ID call button due to visual deficits. Education in OT POC and discharge recommendation with rationale. RN and PCNA notified of pt status and of OT recommendations. Total Timed Code Treatment Minutes: 12 Total Treatment Time (minutes): 40 ((-time for RN to administer medications; pt stating pill stuck in throat taking ++time to clear med) FUNCTIONAL G CODE: OT 6 Clicks Score: 10 (09/05/17847) $ Self Care Current Status (G8987): CL (09/05/17847) $ Self Care Goal Status (G8988): CK (09/05/17847) Based on clinical assessment and the score on the 6 Clicks Functional Assessment Tool, the G code and corresponding severity modifiers are documented above. Physician signature certifies treatment plan of care established above for the period of 09/05/2017 through 09/19/2017. SUBJECTIVE: Current Hospital Course: Chart reviewed; Patient is a 71 year old male Reason for Occupational Therapy Consult: Patient presents to the ED on 09/03/17 with progressive worsening tremors. Referred to OT for safety assessment. Relevant Past Medical History: schizophrenia, dizziness, resting tremor, vitamin D, PD 09/04/17: Per hospitalist and neurologist, Patient would benefit from transfer to facility with more resources to adjust his medications such as inpatient psych. Patient Report: I really need to see the psychologist. Home Environment Patient Lives With: Facility Care (at [facility]) Assistance Available: 24 Hour Entry To Home: No Stairs Tub/Shower Type: walk in shower with chair Laundry: assist with this task Equipment Owned: Commode-Raised;Shower Chair Prior Functional Level: History of Falls;Required Assistance Assistance Required With: Other: See Comment;Transportation;Shopping;Self Care;Medication Management;Meals;Laundry;Cleaning Prior Functional Level Comments: from CM note: assist for dressing and bathing more lately secondary to tremors as well as increased fall risk. 3 months ago pt was living independently and was going to regular exercise throughout the weeks, now has declined and lost alot of weight. Unable to ID any leisure activities. OBJECTIVE: Communication Deficits: (hypotonia) Orientation Deficits: Not oriented to Place;Not oriented to Time Responsiveness: Alert;Awake (flat affect) Follows Commands: 2-step Commands;Cueing Needed Cueing to Follow Commands: Minimum Vision Deficits: Wears glasses;Visual acuity deficit (pt declines wearing glasses during session) CURRENT FUNCTIONAL STATUS: Current Activities of Daily Living Assist Level Feeding Modified Independent (to drink from water bottle, stabilized on surface. Total spoon-completed by RN) Grooming Moderate Assistance (to comb hair, seated EOB) Bathing Upper Body Maximal Assistance (use of wash cloth seated EOB) Bathing Lower Body Maximal Assistance (use of wash cloth seated EOB) Dressing Upper Body Maximal Assistance (per clinical judgment) Dressing Lower Body Total Assistance (per clinical judgment) Toileting Total Assistance (per clinical judgment) Functional Mobility Assist Level Rolling Supine to Sit Minimal Assistance (HOB max elevated; to L side) Sit to Supine Scooting Contact Guard Assistance (to EOB) Sit to Stand Minimal Assistance (from bed ) Stand to Sit Minimal Assistance (to bedside chair) Bed to Chair Minimal Assistance Stand Pivot Gait Belt Toilet/Commode Functional Mobility -Gait belt used during functional mobility and transfers for optimal safety Balance: Static Sitting;Dynamic Sitting;Static Standing;Dynamic Standing Static Sitting Balance: Supervision Dynamic Sitting Balance: Supervision (to CGA) Static Standing Balance: Minimal Assistance Dynamic Standing Balance: Minimal Assistance Activity Tolerance: (denied lightheadedness/dizziness throughout) Vital Signs Pre Assessment: O2 Equipment Pre O2 Equipment: Room Air Please see discipline specific clinical documentation flowsheet for complete details for this therapy evaluation/treatment. SIGNATURE: Amanda Varner OT/L PATIENT NAME: Sherita Jurado DATE: September 05, 2017 TIME: 9:42 AM PAGER: [phone] PROGRESS Observed: 09/05/2017 Status: COMPLETED Source: [facility] 9:40 AM [facility] OTHER [facility]AMP[facility] REPOSITORY HNO ID: [id number] Author: Tri Costa) Santosh Service: Hospital Medicine Author Type: Nurse Practitioner Type: Progress Notes Filed: 09/05/2017 9:50 AM Note Text: DEPARTMENT OF HOSPITAL MEDICINE PROGRESS NOTE SERVICE DATE: 09/05/2017 SERVICE TIME: 9:40 AM Hospital Medicine/Primary Attending: Tri Frost APRN.CNP NIGHT AND WEEKEND COVERAGE: Nights: Please contact pager [phone]. Subjective INTERVAL HPI: Still with significant tremors, improve with activity. Urinary retention reported by nursing staff yesterday evening. Patient denies symptoms of UTI. Awaiting psychiatry consult MEDICATIONS: Reviewed Objective PHYSICAL EXAM: BP 121/73 Pulse 77 Temp (Src) 98.4 (Oral) Resp 19 Ht 5' 10.5 (1.79m) Wt 184 lb (83.5kg) SpO2 91% BMI 26.02 kg/(m2). GENERAL: Alert, no distress, cooperative SKIN: Skin color, texture, turgor normal. No rashes or lesions. HEAD/SINUSES: No significant findings. AT/NC EYES: PERRLA, EOMI OROPHARYNX: MMM LUNGS: Lungs clear to auscultation, good diaphragmatic excursion CARDIAC: Normal S1 and S2; no rubs, murmurs, or gallops ABDOMEN: Abdomen soft, non-tender, BS normal EXTREMITIES: Extremities normal, no deformities, edema, clubbing or skin discoloration. NEURO: ++Significant resting tremor to BLE and BUE. Speech is clear, face is symmetric Lines, Drains, and Airways Line Peripheral 09/03/17 1537 Short Right Antecubital 20 Gauge 1 day Drain Indwelling Urinary Catheter 09/04/17 Assessment Bobo 16 Fr 1 day Reviewed lines, drains, AND airways. Need to be continued for medical treatment DATA: Diagnostic tests reviewed for today's visit: Most recent labs and imaging results. Recent Labs 09/05/17 0333 09/04/17 0335 09/03/17 1528 WBC 7.43 6.76 7.62 HB 14.9 15.2 15.7 PLT 228 247 249 NA 134* 136 136 K 3.6* 4.0 3.9 CO2 26 27 28 BUN 10 10 10 CREAT 0.66* 0.66* 0.69* AST -- -- 15 ALT -- -- 6* TBILI -- -- 0.7 ALKPHOS -- -- 69 Assessment/Plan Active Problems: Tremors of nervous system Parkinsonism Recent psych medication adjustments about 4 months ago and now patient presenting with significant resting tremor. Neurology consultation obtained, would ideally reduce antipsychotic medication (haldol) to increase efficacy of Carbidopa/Levodopa but uncomfortable adjusting these medications without Psychiatry on board. Patient would benefit from transfer to facility with more resources to adjust his medications such as inpatient psych but patient not accepted to inpatient psych at this time. Consult placed to Dr. Lizarraga (Psychiatrist) for assistance in medication adjustments. Dysphagia Speech therapy evaluation Dental soft food consistency with thin liquids Aspiration precautions Severe protein-calorie malnutrition Nutrition assessment Urinary retention No signs of UTI but will recheck UA and culture Check renal/bladder US Bobo catheter Started on Flomax this admission Vitamin B 12 deficiency B12 07/30/2017: 177 Initiate SQ B12 injections while here Medication and Non-Pharmacologic VTE Prophylaxis/Anticoagulants 09/03/171914 vte pharmacologic prophylaxis contraindicated (fl,oh) 09/03/171914 pneumatic compression stockings (fl,oh) VTE Prophylaxis: VTE prophylaxis appropriate Disposition: PT/OT recommending acute rehab at time of discharge Plan of care discussed with: Attending, Patient, RN SIGNATURE: Tri Frost APRN.CNP PATIENT NAME: Sherita Jurado DATE: September 05, 2017 TIME: 9:49 AM PAGER/CONTACT #: [phone] NURSING PROG Observed: 09/05/2017 Status: COMPLETED Source: [facility] 7:52 AM [facility] REPOSITORY HNO ID: [id number] Author: Spring (Rn) JOSE Herrera Service: (none) Author Type: Registered Nurse Type: Nursing Progress Note Filed: 09/05/2017 5:27 PM Note Text: Nursing Progress Note Patient Name: Sherita Jurado Patient Location: [place] [id number] Daily Note: 0700: Assumed care of patient. Patient resting in bed w/eyes closed. No visible s/o pain or distress. No visible tremors at this time. Breathing unlabored. IV saline heplocked. Call blackmon in reach, bed down, safety maintained. 0900: Patient resting in bed w/eyes open. Denies pain at this time. Breathing unlabored. Visible tremors. PT in room. IV saline heplocked. Bed alarm on for safety. Call blackmon in reach, bed down, safety maintained. 1100: Patient resting in bed w/eyes open. Denies pain at this time. No needs requested. Breathing unlabored. Visible tremors. IV saline heplocked. Bed alarm on for safety. Call blackmon in reach, bed down, safety maintained. 1300: Patient resting in bed w/eyes closed. No visible s/o pain or distress. No visible tremors at this time. Breathing unlabored. IV saline heplocked. Safety maintained. 1500: Patient awake. Mild tremors. Patient pulled IV out because didn't belong in arm. Physician notified. Safety maintained. 1700: Patient awake. No needs at this time. Mild tremors. Safety maintained. This note was completed by: Spring Herrera RN CBC Collected: 09/05/2017 Status: F Source: [facility] 3:33 AM [facility] REPOSITORY TYPE CODE TESTS RESULT OUT OF REFERENCE UNITS RANGE LAB WBC 3.70-11.00 k/uL WBC 7.43 LAB RBC 4.20-6.00 m/uL RBC 4.68 LAB HGB 13.0-17.0 g/dL Hemoglobin 14.9 LAB HCT 39.0-51.0 % Hematocrit 44.9 LAB MCV 80.0-100.0 fL MCV 95.9 LAB MCH 26.0-34.0 pG MCH 31.8 LAB MCHC 30.5-36.0 g/dL MCHC 33.2 LAB RDWCV 11.5-15.0 % RDW-CV 12.1 LAB PLTCT 150-400 k/uL Platelet Count 228 LAB MPV 9.0-12.7 fL MPV 9.1 Performed By: #### CBC, BMP, MG1 #### [facility] [address] [facility] [phone] BASIC METABOLIC PANL Collected: 09/05/2017 Status: F Source: [facility] 3:33 AM CLINIC OTHER CAMPUS REPOSITORY TYPE CODE TESTS RESULT OUT OF REFERENCE UNITS RANGE LAB GLU 74-99 mg/dL Glucose 97 Result Comment: The [place] [employer] (ADA) provides guidance for cutoff values for fasting glucose and random glucose. The ADA defines fasting as no caloric intake for at least 8 hours. Fas ting plasma glucose results between 100 to 125 mg/dL indicate increased risk for diabetes (prediabetes). Fasting plasma glucose results greater than or equal to 126 mg/dL meet the criteria for diagnosis of diabetes. In the absence of unequivocal hyperglycemia, results should be confirmed by repeat testing. In a patient with classic symptoms of hyperglycemia or hyperglycemic crisis, random plasma glucose results greater than or equal to 200 mg/dL meet the criteria for diagnosis of diabetes. Reference: Standards of Medical Care in Diabetes 2016, [place] [employer]. Diabetes Care. 2016.39(Suppl 1). LAB BUN 9-24 mg/dL BUN 10 LAB CRET 0.73-1.22 mg/dL Creatinine Low 0.66 LAB NA 136-144 mmol/L Sodium Low 134 LAB K 3.7-5.1 mmol/L Potassium Low 3.6 LAB CL 97-105 mmol/L Chloride Low 96 LAB CO2 22-30 mmol/L CO2 26 LAB AGAP 9-18 mmol/L Anion Gap 12 LAB CA 8.5-10.2 mg/dL Calcium, Total 9.0 LAB GFRAA eGFR- Amer. >60 LAB GFRNAA . eGFR-All Other Races >60 Result Comment: eGFR (Estimated GFR) Units of measure: mL/min/1.73 meters squared eGFR is derived from the reexpressed MDRD Study equation using the following parameters: serum creatinine, age, gender and race. The creatinine assay has been calibrated to be traceable to IDND. An eGFR <60 mL/min/1.73m2 for >3 months is consistent with chronic kidney disease. Refer to KDOQI guidelines for clinical interpretation. In patients with unstable renal function, e.g. those with acute kidney injury, the eGFR may not accurately reflect actual GFR. Performed By: #### CBC, BMP, MG1 #### [facility] [address] [facility] [phone] MAGNESIUM Collected: 09/05/2017 Status: F Source: [facility] 3:33 AM [facility] REPOSITORY TYPE CODE TESTS RESULT OUT OF REFERENCE UNITS RANGE LAB MG 1.7-2.3 mg/dL Magnesium 2.1 Performed By: #### CBC, BMP, MG1 #### [facility] [address] [place] [address] CONSULT Observed: 09/04/2017 Status: COMPLETED Source: [facility] 11:11 PM [facility] REPOSITORY HNO ID: [id number] Author: Silva Bell Service: Psychology Author Type: Psychologist Type: Consults Filed: 01/16/2018 7:29 PM Note Text: Will refer to Dr. Lizarraga for medication adjustment. Needs inpatient psychiatry transfer. NURSING PROG Observed: 09/04/2017 Status: COMPLETED Source: [facility] 7:17 PM [facility] REPOSITORY HNO ID: [id number] Author: Kamila SpencerRn) JOSE Harry Service: Nursing Author Type: Registered Nurse Type: Nursing Progress Note Filed: 09/05/2017 5:30 AM Note Text: Nursing Progress Note Patient Name: Sherita Jurado Patient Location: [facility] [id number] Daily Note: 1918: Assumed care of patient at this time. He is resting in bed with eyes open. Respirations even and unlabored. Tremors minimal upon entering room. They increased when talking with patient. He denies pain or discomfort. Call light in reach. Safety maintained. 2020: Assessment completed, see NPR. Bobo draining clear, yellow urine with sediment. Patient remains with tremors. No acute distress. Safety maintained. 2200: Patient in bed with eyes closed. Respirations even and unlabored. No tremors at this time. He wakes easily. Medications administered per orders. Tremors picked up with patient activity. No s/s acute distress. Safety maintained. Will continue to monitor. 2300: Patient resting in bed with eyes closed. Respirations even and unlabored. No s/s acute distress. Safety maintained. 0100: Patient resting in bed with eyes closed. Respirations even and unlabored. No tremors observed. No s/s acute distress. Safety maintained. 0300: Patient awake in bed with severe tremors. He is asking for more water. Water provided. He denies any other unmet needs at this time. Call light in reach. Safety maintained. 0500: Patient resting in bed with eyes closed. Respirations even and unlabored. No tremors observed. No s/s acute distress. Safety maintained. This note was completed by: Kamila Harry RN CASE MANAGEM Observed: 09/04/2017 Status: COMPLETED Source: [facility] 3:48 PM [facility] OTHER [place] REPOSITORY HNO ID: [id number] Author: Geraldine Castaneda (Sw) Service: Care Management Author Type: Mathematics Faculty Member Type: Care Mgt Progress Note Filed: 09/04/2017 3:50 PM Note Text: CARE MANAGEMENT PROGRESS NOTE SERVICE DATE: 09/04/2017 SERVICE TIME: 3:45pm LOS: 0 days EMR reviewed. Neuro suggesting possible inpatient Psych/Neuro. PT recommending Acute Rehab. CM continuing to monitor for d/c disposition. SIGNATURE: PEDRO Becker PATIENT NAME: Sherita Jurado DATE: September 04, 2017 TIME: 3:48 PM PAGER/CONTACT #: [phone] NUTRITION Observed: 09/04/2017 Status: COMPLETED Source: [facility] 2:23 PM [facility] OTHER [place] REPOSITORY HNO ID: [id number] Author: Luz Erwin Service: Nutrition Therapy Author Type: Registered Dietitian Type: Nutrition Filed: 09/04/2017 2:32 PM Note Text: NUTRITION THERAPY INITIAL ASSESSMENT SERVICE DATE: 09/04/2017 SERVICE TIME: 11:00 am RECOMMENDED MALNUTRITION DIAGNOSIS: SEVERE PROTEIN-CALORIE MALNUTRITION In the context of Chronic Illness or Injury based on: Unintentional Weight Loss: >10% in 6 months Insufficient Energy Intake: Less than 75% energy intake compared to estimated needs for greater than or equal to 1 month NUTRITION CARE PLAN: Inadequate energy intake related to inability to consume sufficient nutrients as evidenced by intake history./swallowing concerns Intervention: Monitor clinical findings with a goal advance diet to meet needs. Monitor intake. Reviewed physician progress notes and labs. Will follow up in 3 days or as consulted. Monitor and Evaluation: Goal: Meet >75% of estimated needs Discharge Nutrition Recommendations: Diet: Per Speech Therapy Thin liquids (Dental soft) Per HPI: Tremors of nervous system PMHx of schizophrenia, dizziness, resting tremor, vitamin D deficiency Lives skilled nursing Present Diet Order: Full Liquid Enteral Access: no Nutritional Intake Prior to Admission: <75% estimated energy needs over the past 6 month(s) GI symptoms: swallowing problems Abdominal Exam: not assessed Is the patient having any pain that is interfering with oral/enteral intake? No ANTHROPOMETRICS Height: 179.1 cm (5' 10.5) Admission Weight: 83.5 kg (184 lb) Current Weight: 83.5 kg (184 lb) Body mass index is 26.03 kg/m?. normal Weight has decreased by 9.5 kg over 6 months representing 10 % weight change. Last Wt 09/03/17 : 83.5 kg (184 lb) 08/25/17 : 83.5 kg (184 lb) 08/04/17 : 85.3 kg (188 lb) 07/24/17 : 85.4 kg (188 lb 3.2 oz) 02/06/17 : 93 kg (205 lb) 11/08/16 : 94.3 kg (208 lb) 11/30/15 : 97.1 kg (214 lb) 01/10/16 : 99.3 kg (219 lb) [place] Body Weight: 74kg Resting Metabolic Rate: 1603 Estimated kilocalorie needs: 1800 kilocalories determined by 20-25 kcal/kg Estimated protein needs: 85 grams determined by 1.1-1.5 g/kg [place] weight Estimated fluid needs:1800 milliliters based on 1 mL per kcal NUTRITION FOCUSED PHYSICAL EXAM: Unable to perform exam due to patient unable to participate, will re-attempt during reassessment. Temperature Max in 24 hours: Temp (24hrs), Av.6 ?C (97.9 ?F), Min:36.4 ?C (97.5 ?F), Max:36.8 ?C (98.2 ?F) BP 128/68 Pulse 88 Temp 36.4 ?C (97.5 ?F) Resp 18 Ht 179.1 cm (5' 10.5) Wt 83.5 kg (184 lb) SpO2 94% BMI 26.03 kg/m? Recent Labs 09/04/17 0335 09/03/17 1528 GLUC 88 89 BUN 10 10 CREAT 0.66* 0.69* NA 136 136 K 4.0 3.9 CHLOR 97 96* CO2 27 28 ALB -- 3.9 HB 15.2 15.7 HCT 45.3 46.2 WBC 6.76 7.62 MG 2.2 2.1 Potential Signs of Inflammation: no identifiable sources Current Facility-Administered Medications: benztropine 2 mg tab(s) (COGENTIN) 2 mg ORAL BID carbidopa-levodopa 25-100 mg 2 tablet (SINEMET 25-100) 2 tablet ORAL TID haloperidol 5 mg tab(s) (HALDOL) 5 mg ORAL BID donepezil (ARICEPT) tab(s) 22.5 mg 22.5 mg ORAL AT BEDTIME 0.9% NaCl 3-5 mL 3-5 mL INTRAVENOUS q 12 H MNT Billing Type: Initial Assess/15 min 3 units SIGNATURE: Luz Erwin RD, LD PATIENT NAME: Sherita Jurado DATE: September 04, 2017 TIME: 2:24 PM PROGRESS Observed: 09/04/2017 Status: COMPLETED Source: [facility] 9:45 AM [facility]IN[facility] OTHER CAMPUS REPOSITORY HNO ID: [id number] Author: Tri Frost Service: Hospital Medicine Author Type: Nurse Practitioner Type: Progress Notes Filed: 09/04/2017 4:50 PM Note Text: DEPARTMENT OF HOSPITAL MEDICINE PROGRESS NOTE SERVICE DATE: 09/04/2017 SERVICE TIME: 9:45 AM Hospital Medicine/Primary Attending: Tri Frost APRN.CNP NIGHT AND WEEKEND COVERAGE: Nights: Please contact pager [phone]. Subjective INTERVAL HPI: Still with significant tremors MEDICATIONS: Reviewed Objective PHYSICAL EXAM: BP 130/67 Pulse 77 Temp (Src) 97.7 (Oral) Resp 18 Ht 5' 10.5 (1.79m) Wt 184 lb (83.5kg) SpO2 93% BMI 26.02 kg/(m2). GENERAL: Alert, no distress, cooperative SKIN: Skin color, texture, turgor normal. No rashes or lesions. HEAD/SINUSES: No significant findings. AT/NC EYES: PERRLA, EOMI OROPHARYNX: MMM LUNGS: Lungs clear to auscultation, good diaphragmatic excursion CARDIAC: Normal S1 and S2; no rubs, murmurs, or gallops ABDOMEN: Abdomen soft, non-tender, BS normal EXTREMITIES: Extremities normal, no deformities, edema, clubbing or skin discoloration. NEURO: ++Significant resting tremor to BLE and BUE. Speech is clear, face is symmetric Lines, Drains, and Airways Line Peripheral 09/03/17 1537 Short Right Antecubital 20 Gauge 1 day Reviewed lines, drains, AND airways. Need to be continued for medical treatment DATA: Diagnostic tests reviewed for today's visit: Most recent labs and imaging results. Recent Labs 09/04/17 0335 09/03/17 1528 WBC 6.76 7.62 HB 15.2 15.7 PLT 247 249 NA 136 136 K 4.0 3.9 CO2 27 28 BUN 10 10 CREAT 0.66* 0.69* AST -- 15 ALT -- 6* TBILI -- 0.7 ALKPHOS -- 69 Assessment/Plan Active Problems: Tremors of nervous system Parkinsonism Recent medication adjustments about 4 months ago and now patient presenting with significant resting tremor. Neurology consultation obtained, would ideally reduce antipsychotic medication (haldol) to increase efficacy of Carbidopa/Levodopa but uncomfortable adjusting these medications without Psychiatry on board. Patient would benefit from transfer to facility with more resources to adjust his medications such as inpatient psych. Call placed to transfer line to initiate transfer, awaiting call back. Dysphagia Speech therapy evaluation Dental soft food consistency with thin liquids Aspiration precautions Severe protein-calorie malnutrition Nutrition assessment Medication and Non-Pharmacologic VTE Prophylaxis/Anticoagulants 09/03/171914 vte pharmacologic prophylaxis contraindicated (mo,oh) 09/03/171914 pneumatic compression stockings (mo,ma) VTE Prophylaxis: VTE prophylaxis appropriate Disposition: TBD, possible transfer to inpatient psych Plan of care discussed with: Attending, Patient, RN and Consultants: Dr. Chowdary SIGNATURE: Tri Frost APRN.CNP PATIENT NAME: Sherita Jurado DATE: September 04, 2017 TIME: 4:33 PM PAGER/CONTACT #: [phone] NURSING PROG Observed: 09/04/2017 Status: COMPLETED Source: [facility] 9:31 AM [facility] OTHER [facility] REPOSITORY HNO ID: [id number] Author: Spring Watts) JOSE Herrera Service: (none) Author Type: Registered Nurse Type: Nursing Progress Note Filed: 09/04/2017 7:00 PM Note Text: Nursing Progress Note Patient Name: Sherita Jurado Patient Location: [place] [id number] Daily Note: 0700: Assumed care of patient. Patient resting in bed w/eyes closed. No visible s/o pain or distress. Breathing unlabored. Call blackmon in reach, bed down, safety maintained. 0900: Patient sitting in chair. No visible s/o pain or distress. Mild upper body tremors. Breathing unlabored. Call blackmon in reach, safety maintained. 1100: Patient resting in bed w/eyes closed.No visible s/o pain or distress. Breathing unlabored. Call blackmon in reach, bed down, safety maintained. 1300: Patient resting in bed w/eyes closed.No visible s/o pain or distress. Breathing unlabored. Call blackmon in reach, bed down, safety maintained. 1500: Patient resting in bed w/eyes open. No complaints at this time. Mild upper body tremors. Breathing unlabored. Call blackmon in reach, safety maintained. 1700:No change from prior assessment. This note was completed by: Spring Herrera RN THERAPY NT Observed: 09/04/2017 Status: COMPLETED Source: [facility] 8:55 AM [facility] OTHER [facility]AMPUS REPOSITORY HNO ID: [id number] Author: Dia Riojas (Pt) Dlugoss Service: Physical Therapy Author Type: Physical Therapist Type: Therapy (PT/OT/Speech/Resp) Filed: 09/04/2017 9:00 AM Note Text: Physical Therapy Evaluation SERVICE DATE: 09/04/2017 SERVICE TIME: 809 to 829 ROOM: [id number] Recommended Discharge Disposition: Acute Rehab Recommended Discharge Disposition Comments: pt would be appropriate and require therapy from more than just one discipline of therapy services. If pt qualifies acute rehab may be more appropriate since pt was independent 3 months ago and has declined since then. If acute rehab is not approved, SNF would be the next best recommendation Justification For Post Acute Needs: Anticipate patient will tolerate 3 hours of daily therapy at the time of admission to post-acute setting;Cognition intact;Good premorbid functional status;Good sitting tolerance;Medically complex;Motivated;Willing to participate;Anticipate that patient will require daily (5x/wk) skilled therapy in a post-acute facility setting at the time of acute hospital discharge Anticipated Discharge Needs: Undetermined Recommended Discharge Equipment: No equipment needs anticipated PT Recommendations to Nursing: OOB for Meals;Transfer to/from chair;With assist of 1 person;To bathroom (with gait belt) Device: Hand Held Assist PT 6 Clicks Score: 15 Precautions/Activity Restrictions: Fall Risk;Bed/Chair Alarm;Other: See Comments (assist for feeding) ASSESSMENT : Patient tolerated OOB mobility fairly well with CGA to min assist for ambulation with gait belt. Pt did require more assistance with bed mobility. Tremors are increased when supine and sitting and pt is unable to voluntarily prevent them. RIght UE is more affected than left with ataxia and coordination. Pt's balance is also affected with tremors and pt demonstrates an increased risk for falls and would benefit from acute rehab for strengthening, balance training, coordination therapy, and functional mobility in order to return him to his PFL of independence at the skilled nursing. Pt has significantly declined from his independent PFL. Patient Disposition at Start of Session: Supine in Bed;Bed Alarm Patient Disposition at End of Session: OOB in Chair;Chair Alarm Tolerated Full Session Physical Therapy Problem List: Impaired Self Care;Decreased Activity Tolerance;Decreased Strength;Functional Mobility Impairment;Balance Impaired;Safety Deficits Patient /Caregiver Goals: Go To Rehab Goals for Plan of Care: Able to perform HEP with: Verbal Cues Only Transfer supine to/from sit with: Minimal Assistance (with HOB flat) Transfer sit to/from stand with: Supervision Ambulate with: Contact Guard Assistance Distance: for 200 feet Device: (preferably none) Goal: demonstrate no more than independence with static standing balance in order to return home to skilled nursing Rehab Potential: Good PLAN: Treatment Frequency (times per week): 5 Current admission Treatment Interventions: Energy Conservation Training;Strengthening;Balance Training;Neuromuscular Re-education Plan of Care developed with: Patient TREATMENT INTERVENTIONS: Therapy Diagnosis: Reduced mobility-other;Muscle Weakness (generalized);Unsteadiness on feet;Abnormalities of gait and mobility-other;Difficulty walking-musculoskeletal;Decreased activities of daily living (ADL) Interventions Provided: Evaluation;Gait Training (46043) $ Evaluation-Low (03800) Billed Units: 1 unit Gait Training (44860) Treatment Minutes: 10 1 unit Skilled Intervention(s): Instruction in sit to stand technique with proper hand placement and body positioning at edge of bed/chair, Instruction in stand to sit technique with LE's touching chair/bed and reaching back for surface, Facilitation of verbal cues for increasing MARY for increased stability and Instruction in use of equipment, cues for sequence and pattern. Gait belt was used for pt's safety. Total Timed Code Treatment Minutes: 10 Total Treatment Time (minutes): 20 FUNCTIONAL G CODE: PT 6 Clicks Score: 15 (09/04/17 0810) $ Mobility: Walking and Moving Around Current Status (G8978): CK (09/04/17 0810) $ Mobility: Walking and Moving Around Goal Status (G8979): CK (09/04/17 0810) Based on clinical assessment and the score on the 6 Clicks Functional Assessment Tool, the G code and corresponding severity modifiers are documented above. Physician signature certifies treatment plan of care established above for the period of 09/04/2017 through 09/18/2017. SUBJECTIVE: Current Hospital Course: Chart reviewed; In April of 2017 patient's Risperdal was discontinued due to patient's tremor and concern it was secondary to long-term Risperdal use. Despite this patient's tremor actually worsened as well as he started having choking episodes while eating. The skilled nursing is now having difficulty caring for patient and he is unable to see neurologist for first time until October 16. Reason for Physical Therapy Consult : placement and rehab Relevant Past Medical History: schizophrenia, dizziness, resting tremor, vitamin D, PD Patient Report: Pt was supine in bed and agrees to PT. Increased tremors in right more than left UE. No pain reported. Home Environment Patient Lives With: Facility Care (at [facility]) Assistance Available: 24 Hour Entry To Home: No Stairs Tub/Shower Type: walk in shower with chair Laundry: assist with this task Equipment Owned: Commode-Raised;Shower Chair Prior Functional Level: History of Falls;Required Assistance Assistance Required With: Other: See Comment;Transportation;Shopping;Self Care;Medication Management;Meals;Laundry;Cleaning Prior Functional Level Comments: from CM note: assist for dressing and bathing more lately secondary to tremors as well as increased fall risk. 3 months ago pt was living independently and was going to regular exercise throughout the weeks, now has declined and lost alot of weight. OBJECTIVE: Range Of Motion: Within Functional Limits Strength: Within Functional Limits Except Location Strength Not WFL: Lower Extremity Left Lower Extremity Strength: difficult to formally MMT secondary to tremors, but demonstrates >3+/5 through functional mobility with WB Right Lower Extremity Strength: difficult to formally MMT secondary to tremors, but demonstrates >3+/5 through functional mobility with WB Quality of Movement: Tremor (significant in right UE > left) Coordination Deficits: Finger to nose;Rapid alternating movements;Finger opposition;Finger/foot tapping;In hand manipulation Finger to Nose Impairment: Bilateral (right > left) Rapid Alternating Movements Impairment: Bilateral Finger Opposition Impairment: Bilateral Finger/Foot Tapping Impairment: Bilateral Hand Manipulation Impairment: Bilateral CURRENT FUNCTIONAL STATUS: Current Functional Mobility Assist Level Additional Information Rolling Supine to Sit Moderate Assistance (with HOB at 15 degrees of elevation) Sit to Supine Scooting Supervision Sit to Stand Contact Guard Assistance Stand to Sit Contact Guard Assistance Bed to Chair Toilet/Commode Gait Minimal Assistance (to CGA when cues for increased MARY) Gait Device: None Gait Distance (feet): 30 feet x 2 gait belt is required Stairs Curb Step Car Transfer General Gait Deviations: Lateral sway increased;Arm swing decreased;Step length decreased;Difficulty changing direction/turning;Narrow Base of Support Balance: Static Sitting;Dynamic Sitting;Static Standing;Dynamic Standing Static Sitting Balance: Modified Independent Dynamic Sitting Balance: Modified Independent Static Standing Balance: Contact Guard Assistance (with gait belt) Dynamic Standing Balance: Minimal Assistance Pt was left sitting in bed side chair with all needs in reach. Chair alarm on. Educated to call for assistance with ambulation, and RN was told about recommendations and pt's mobility status. Please see discipline specific clinical documentation flowsheet for complete details for this therapy evaluation/treatment. SIGNATURE: Dia Candelario PT PATIENT NAME: Sherita Jurado DATE: September 04, 2017 TIME: 8:55 AM PAGER/CONTACT #: [phone] THERAPY NT Observed: 09/04/2017 Status: COMPLETED Source: [facility] 8:30 AM CLINIC OTHER CAMPUS REPOSITORY HNO ID: [id number] Author: Eleonora (Barratte Operator) Samanta Mondragon CCC/RN PATIENT SERVICES Service: Speech/Swallow Author Type: Speech Language Pathologist Type: Therapy (PT/OT/Speech/Resp) Filed: 09/04/2017 9:25 AM Note Text: Attestation signed by Samira Garcia at 09/15/2017 7:20 PM Samira Garcia APRN.CNP 09/15/2017 7:20 PM Speech Therapy Clinical Swallow Evaluation SERVICE DATE: 09/04/2017 SERVICE TIME: 829 to 15 ROOM: [place] [address] Nursing Recommendations: Reinforce use of swallowing strategies Diet Recommendations: Thin liquids (Dental soft) Swallowing Precautions Recommendations: -Supervision/Assistance for meals.; -Sit upright 90 degrees for all PO; -Use extra moistening agents; -Feed / Eat at a slow rate; -Extended time between presentations; -Ensure heightened awareness to completion of the swallow; -Oral Care before and after meals; -Self-monitoring Results and Recommendations Discussed With: Patient;Nurse Recommended Discharge Disposition: Unable to determine IMPRESSION: Patient demonstrates oropharyngeal phase dysphagia which is negatively impacting his/her ability to effectively maintain adequate nutrition and hydration and/or airway safety. Rehabilitation Precautions: Aspiration Precautions;Dysphagia ASSESSMENT: Tolerated Full Session Goals for Plan of Care: Swallow Goals: - Patient will tolerate Dental soft / Thin Liquids diet consistency while utilizing compensatory/swallowing strategies given minimal cues in 100% of trials so that the patient will minimize the signs/symptoms of dysphagia. -Patient will demonstrate adequate return of knowledge of all compensatory strategies/instruction to effectively assist the patient in immediate safety with oral intake and swallowing. Patient /Caregiver Goals: Eat/Drink Without Restrictions Rehab Potential: Good PLAN: Treatment Frequency (times per week): 3 Current admission Treatment Interventions: Dysphagia Management Plan of Care Developed with: Patient;Caregiver TREATMENT INTERVENTIONS: Therapy Diagnosis: Dysphagia, oropharyngeal phase Interventions Provided: Clinical Swallow Evaluation (54980);Dysphagia Therapy (27536) $ Clinical Swallow Evaluation (56506) Billed Units: 1 unit Clinical Swallowing assessment completed to determine the patient's current swallowing skills and potential need for additional diagnostics and/or therapeutic intervention. $ Dysphagia Therapy (32135) Billed Units: 1 unit Skilled Interventions: -Educated and advised patient / caregiver on texture and liquid consistency recommendations., Discussed variable dietary consistencies and suggested Dental Soft diet secondary to bolus control and bolus breakdown; -Instructed patient / caregiver on recommended compensatory strategies to maximize safety with oral intake while maintaining nutrition, hydration and medication stability. Educated the patient on the need to be able to communicate to caregivers the need for greater assistance; to use safe feeding techniques and rigidly monitor rate of intake paired with volume of each presentation Total Treatment Time (minutes): 45 FUNCTIONAL G CODE: $ Swallow Current Status (G8996): CJ (09/04/17829) $ Swallow Goal Status (G8997): CI (09/04/17829) Based on clinical assessment and the score on the Functional Communication Measure (FCM), the G code and corresponding severity modifiers are documented above. Physician signature certifies treatment plan of care established above for the period of 09/04/2017 through 09/18/2017. SUBJECTIVE: Current Hospital Course: Chart reviewed; Reason for Speech Therapy Consult: concern for swallowing difficulties; recent unexpected weight loss; pt complaints of food hanging up in his throat; pt reports that the sensation will 'come and go' and has been going on for months Relevant Past Medical History: Parkinson's Disease Patient Report: People just started to feed me. It is very helpful however some people just go to fast and it is hard to keep up with them. Home Environment Prior Functional Level: Required Assistance Assistance Required With: Safety;Self Care Assistance Available: 24 Hour Prior Swallowing Function/Diet Textures: Regular Consistency;Thin liquids (per patient) Please see discipline specific clinical documentation flowsheet for complete details for this therapy evaluation/treatment. SIGNATURE: Eleonora Mondragon [facility]-RN PATIENT SERVICES PATIENT NAME: Sherita Jurado DATE: September 04, 2017 TIME: 9:20 AM PAGER: [phone] PROGRESS Observed: 09/04/2017 Status: COMPLETED Source: [facility] 6:42 AM [facility] OTHER [place] REPOSITORY HNO ID: [id number] Author: Eugenia Rai Service: Hospital Medicine Author Type: Physician Type: Progress Notes Filed: 09/04/2017 6:47 AM Note Text: SHORT HOSPITALIST PROGRESS NOTE Name: Sherita Jurado SERVICE DATE: 09/04/2017 SERVICE TIME: 6:42 AM Hospital Medicine/Primary Attending: Eugenia Rai MD NIGHT COVERAGE BETWEEN 5.30P-7.30A Page [phone] Nursing staff called regarding unable to void. Patient was straight cath with 1100 cc of urine output. Started patient on Flomax. Plan of care discussed with: RN SIGNATURE: uEgenia Rai MD DATE: September 04, 2017 TIME: 6:42 AM NURSING PROG Observed: 09/04/2017 Status: COMPLETED Source: [facility] 6:05 AM [facility] REPOSITORY HNO ID: [id number] Author: Kamila Harry RN Service: Nursing Author Type: Registered Nurse Type: Nursing Progress Note Filed: 09/04/2017 6:14 AM Note Text: Nursing Progress Note Patient Name: Sherita Jurado [facility] [id number] Daily Note: 0605: Paged hospitalist regarding patient's inability to void. Patient had tried multiple times throughout the night. He tried urinal. He tried standing at the bedside. He tried walking to the bathroom. Bladder scanner read >200 on both machines used. Awaiting call back. 0609: Spoke with Dr. Carnes regarding above. He stated he will enter orders for straight cath. This note was completed by: Kamila Harry RN CBC Collected: 09/04/2017 Status: F Source: [facility] 3:35 AM [facility] OTHER CAMPUS REPOSITORY TYPE CODE TESTS RESULT OUT OF REFERENCE UNITS RANGE LAB WBC 3.70-11.00 k/uL WBC 6.76 LAB RBC 4.20-6.00 m/uL RBC 4.71 LAB HGB 13.0-17.0 g/dL Hemoglobin 15.2 LAB HCT 39.0-51.0 % Hematocrit 45.3 LAB MCV 80.0-100.0 fL MCV 96.2 LAB MCH 26.0-34.0 pG MCH 32.3 LAB MCHC 30.5-36.0 g/dL MCHC 33.6 LAB RDWCV 11.5-15.0 % RDW-CV 12.1 LAB PLTCT 150-400 k/uL Platelet Count 247 LAB MPV 9.0-12.7 fL MPV 9.1 Performed By: #### CBC, BMP, MG1 #### [facility] [address] [facility] [phone] BASIC METABOLIC PANL Collected: 09/04/2017 Status: F Source: [facility] 3:35 AM [facility] REPOSITORY TYPE CODE TESTS RESULT OUT OF REFERENCE UNITS RANGE LAB GLU 74-99 mg/dL Glucose 88 Result Comment: The [place] Diabetes Association (ADA) provides guidance for cutoff values for fasting glucose and random glucose. The ADA defines fasting as no caloric intake for at least 8 hours. Fas ting plasma glucose results between 100 to 125 mg/dL indicate increased risk for diabetes (prediabetes). Fasting plasma glucose results greater than or equal to 126 mg/dL meet the criteria for diagnosis of diabetes. In the absence of unequivocal hyperglycemia, results should be confirmed by repeat testing. In a patient with classic symptoms of hyperglycemia or hyperglycemic crisis, random plasma glucose results greater than or equal to 200 mg/dL meet the criteria for diagnosis of diabetes. Reference: Standards of Medical Care in Diabetes 2016, [place] [employer]. Diabetes Care. 2016.39(Suppl 1). LAB BUN 9-24 mg/dL BUN 10 LAB CRET 0.73-1.22 mg/dL Creatinine Low 0.66 LAB NA 136-144 mmol/L Sodium 136 LAB K 3.7-5.1 mmol/L Potassium 4.0 LAB CL 97-105 mmol/L Chloride 97 LAB CO2 22-30 mmol/L CO2 27 LAB AGAP 9-18 mmol/L Anion Gap 12 LAB CA 8.5-10.2 mg/dL Calcium, Total 8.9 LAB GFRAA eGFR- Amer. >60 LAB GFRNAA . eGFR-All Other Races >60 Result Comment: eGFR (Estimated GFR) Units of measure: mL/min/1.73 meters squared eGFR is derived from the reexpressed MDRD Study equation using the following parameters: serum creatinine, age, gender and race. The creatinine assay has been calibrated to be traceable to IDMS. An eGFR <60 mL/min/1.73m2 for >3 months is consistent with chronic kidney disease. Refer to KDOQI guidelines for clinical interpretation. In patients with unstable renal function, e.g. those with acute kidney injury, the eGFR may not accurately reflect actual GFR. Performed By: #### CBC, BMP, MG1 #### [facility] [address] [place], [place] [id number] MAGNESIUM Collected: 09/04/2017 Status: F Source: [facility] 3:35 AM [facility] REPOSITORY TYPE CODE TESTS RESULT OUT OF REFERENCE UNITS RANGE LAB MG 1.7-2.3 mg/dL Magnesium 2.2 Performed By: #### CBC, BMP, MG1 #### [facility] [address] [place], [place] [id number] NURSING PROG Observed: 09/04/2017 Status: COMPLETED Source: [facility] 1:06 AM [facility] REPOSITORY HNO ID: [id number] Author: Estelita (Rn) Ciro, RN Service: (none) Author Type: Registered Nurse Type: Nursing Progress Note Filed: 09/04/2017 6:38 AM Note Text: Nursing Progress Note Patient Name: Sherita Jurado Patient Location: [place] [id number] 0100- Patient resting in bed with eyes closed. Respirations even and unlabored. No s/s distress. Call light in reach. 0300- Patient resting in bed with eyes closed. Respirations are even and unlabored. No s/s of distress. Call light in reach. 0500- Patient laying in bed with eyes open. Patient assisted to the bathroom with one person assist. Continues to be unable to void. Patient states he has this trouble at home often. Patient continues to have tremors. Siderails are padded. Patient repositioned for comfort. Call light in reach. 0630- Patient straight cathed. Output- 1100 arguelles yellow urine. Patient tolerated well. Hospitalist paged with results. This note was completed by: Dora Tanner RN NURSING PROG Observed: 09/03/2017 Status: COMPLETED Source: [facility] 8:05 PM CLINIC OTHER CAMPUS REPOSITORY HNO ID: [id number] Author: Kamila (Rn) JOSE Harry Service: Nursing Author Type: Registered Nurse Type: Nursing Progress Note Filed: 09/03/2017 11:58 PM Note Text: Nursing Progress Note Patient Name: Sherita Jurado Patient Location: [id number] Daily Note: 1930: Assumed care of patient at this time. He is awake in bed with seizure pads in use. Constant full body tremors noted. Admission assessment to be done. Safety maintained. 2134: Patient in bed watching TV. Respirations even and unlabored. Tremors appear decreased with decreased stimulation. He was able to take all his scheduled medications without difficulty swallowing. Seizure pads in place. Safety maintained. Will continue to monitor. 2300: Assisted patient to the bathroom to urinate. He ambulated with 2 stand by assist for safety. Significant tremors with ambulation. Patient was unable to urinate at this time. Will continue to monitor. This note was completed by: Kamila Harry RN CONSULT Observed: 09/03/2017 Status: COMPLETED Source: [facility] 6:47 PM CLINIC OTHER CAMPUS REPOSITORY HNO ID: [id number] Author: Martha Chowdary Jr. Service: Neurology Author Type: Physician Type: Consults Filed: 09/03/2017 7:17 PM Note Text: CONSULT: NEUROLOGY SERVICE SERVICE DATE: 09/03/2017 SERVICE TIME: 6:47 PM REASON FOR CONSULT: Tremors REQUESTING PHYSICIAN: Dr. Francisco Starks PRIMARY CARE PHYSICIAN: David Hidalgo MD Subjective Mr. Jurado is a pleasant 71 year old right handed male who presents with PMHx of schizophrenia, dizziness, resting tremor, vitamin D deficiency who presented to [facility] from his skilled nursing for progressively worsening tremor. Per patient, tremor has been present for years, but progressively worsening since the beginning of 2017. Of note, he knows none of his family's medical history. As a results of this schizophrenia he has been on multiple anti-psychotics and he does not remember them all my name. Risperdal was recently Rx'd but discontinued in 04/2017 as thought to be contributing to tremor. However, despite Risperdal being discontinued, tremor actually worsened and patient also began having difficulties swallowing. Per ER report multiple medications including Geodon, Sinemet and Haldol have been started without any improvement or resolution of tremor or swallowing issues. On my review of records he has been placed on Amantadine as well as Sinemet 25/100mg 2 tabs TID with no improvement of symptoms. He stats his gait has been unsteady for the past few months as well. He states his writing is horrible. He states the tremors sometimes briefly improve with activity, and then worsen again. They are primarily present at rest. No history of ETOH to know if it improves tremor. Unknown if history of RBD. At this time he cannot independently perform any of his ADLs. On review of his current records, he is on Haldol, Cogentin, and still on Sinemet. CT brain performed and showed no evidence of an acute intracranial process on my review. Per radiology report: RESULT: Motion artifact limits detailed moderately. ?Scans through the head were performed without contrast. ?Mild diffuse prominence of the ventricular system, basal cisterns and cortical sulci is seen consistent with the patient's age. ?There is no evidence of mass lesion or edema. ? No intracranial hemorrhage or infarction is seen. ?No focal bony abnormality is appreciated. FUNCTIONAL STATUS: Totally dependent - secondary to tremors. PAST MEDICAL HISTORY Diagnosis Date - Actinic keratosis - Breast lump LT breast; cavernous hemangioma/excised - Dizziness - Epidermoid cyst of skin - Lipoma of skin forearms and abdomen - Mammogram abnormal suspicious of cancer- referral made - Obesity - On retirement drug therapy - Palpitations - Schizophrenia (HCC) - Tremor - Vitamin D deficiency PAST SURGICAL HISTORY Procedure Laterality Date - NONE FAMILY HISTORY Problem Relation Age of Onset - Family history unknown: Yes Social History Substance Use Topics - Smoking status: Former Smoker - Smokeless tobacco: Never Used - Alcohol use No Facility-Administered Medications Prior to Admission: cyanocobalamin 1,000 mcg injection 1,000 mcg INTRAMUSCULAR q 1 WEEK Simranjot Gwen 1,000 mcg at 09/02/17 1047 Prescriptions Prior to Admission: benztropine (COGENTIN) 1 mg tablet Take 2 mg by mouth twice daily. Disp: Rfl: 0 Taking haloperidol (HALDOL) 5 mg tablet Take 5 mg by mouth twice daily. Disp: Rfl: 0 Taking carbidopa-levodopa (SINEMET) 25-100 mg per tablet Take 2 tablets by mouth three times daily. Disp: Rfl: Taking OTC PRODUCT CBD oil 5 drops 3 times daily highest dose. This was recommended by psychiatrist Disp: Rfl: Taking VITAMIN D 1,000 unit tab tablet Take 1,000 Units by mouth once daily. Disp: Rfl: Taking Donepezil 23 mg tab Take 1 tablet by mouth daily at bedtime. Disp: Rfl: Taking No current hospital medications on file. Allergies As of Date: 09/03/2017 Allergen Noted Reaction GOOSE FEATHERS ALLERGENIC EXTRACT 11/08/2016 Unknown ZYPREXA [OLANZAPINE] 11/08/2016 Unknown Fully Assessed 09/03/2017 COMPLETE REVIEW OF SYSTEMS: PAIN ASSESSMENT: Negative for pain, history of chronic pain, or current treatment for a chronic pain condition. GENERAL: No weight loss, malaise or fevers HEENT: Negative for frequent or significant headaches, No changes in hearing or vision, no nose bleeds or other nasal problems NECK: Negative for lumps, goiter, pain and significant neck swelling RESPIRATORY: Negative for cough, hemoptysis, wheezing, COPD, dyspnea or shortness of breath CARDIOVASCULAR: Negative for chest pain, leg swelling, hypertension, CHF or palpitations GI: No nausea, vomiting, or diarrhea : No history of dysuria, frequency or incontinence SKIN: Negative for lesions, rash, and itching HEMATOLOGY/LYMPHOLOGY: Negative for prolonged bleeding, bruising easily or swollen nodes ENDOCRINE: Negative for cold or heat intolerance, polyuria, polydipsia and goiter NEURO: See HPI Objective PHYSICAL EXAM: GENERAL EXAM: General appearance: NAD, pleasant. Masked facies. Mildly hypophonic. HEENT: NC/AT, nasal congestion absent, no oral lesions, membranes moist. NECK: No masses, supple. Lungs: CTA bilaterally. CV: RRR nl S1, S2. No carotid bruits. Abd: Soft, nontender, nondistended. Bowel sounds present. Extr: No cyanosis, clubbing or edema. No evidence of fasciculations. Distal extremity pulses 2+. Capillary refill <2 sec. Skin: Cool to touch. No rash. NEUROLOGICAL EXAM: General: Awake, alert, oriented x2 (person,place), language fluent, no dysarthria; comprehension, naming, repetition intact. CN: PERRL, fundi with no evidence of papilledema, EOMI and without nystagmus, VFF to confrontation, facial sensation and strength are normal and symmetric, hearing is intact to finger rub bilaterally, palate and tongue movements are intact and symmetric. SCM and trapezius strength normal. Motor: Strength (5/5) bilaterally (throughout extremities x4). Bulk symmetric. Tone increased x4 exts. Reflexes: Brisk, plantar stimulation is equivocal. Coordination: FNF, RAYMON intact but with superimposed tremors (mild). Tremors are of pill-rolling nature. Start in L hand at rest, and long rests, begin to spread to involve bilateral lower exts and then head. Tremor improves and actually resolves with activity, but as soon as extremities come to rest, tremor reappears. Sensation: Light touch, pin intact throughout. No evidence of neglect. Gait: Narrow based but very unsteady and needing assist. Near normal stride attempted by patient. Patient Vitals for the past 24 hrs: BP Temp Temp src Pulse Resp SpO2 Weight 09/03/17 1827 - - - 82 - 95 % - 09/03/17 1826 134/73 36.5 ?C (97.7 ?F) Oral 82 18 (!) 87 % - 09/03/17 1731 130/72 - - 72 20 99 % - 09/03/17 1605 147/65 - - 78 18 96 % - 09/03/17 1235 (!) 136/114 36.9 ?C (98.4 ?F) - - - - - 09/03/17 1234 - - - (!) 110 20 98 % 83.5 kg (184 lb) Body mass index is 26.4 kg/m?. DATA: Diagnostic tests reviewed for today's visit: Most recent labs and imaging results. WBC Date Value 09/03/2017 7.62 k/uL 08/04/2017 7.9 thou/cmm 07/30/2017 6.8 thou/cmm RBC Date Value 09/03/2017 4.79 m/uL 08/04/2017 5.09 mil/cmm 07/30/2017 5.07 mil/cmm Platelet Count Date Value 09/03/2017 249 k/uL 08/04/2017 251 thou/cmm 07/30/2017 221 thou/cmm BUN (mg/dL) Date Value 09/03/2017 10 08/04/2017 18 07/30/2017 15 Creatinine (mg/dL) Date Value 09/03/2017 0.69 08/04/2017 0.91 07/30/2017 0.81 CBC, Coags, BMP, Mg, Phos Recent Labs 09/03/17 1528 NA 136 K 3.9 CHLOR 96* CO2 28 GLUC 89 CA 9.4 MG 2.1 Liver Function, Amylase, AND Lipase Recent Labs 09/03/17 1528 TPROT 7.8 ALB 3.9 ALT 6* AST 15 ALKPHOS 69 TBILI 0.7 Impression/Recommendations Patient with tremors that appear to be in nature of parkinsonism. 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 In addition despite being tried on Carbidopa/Levodopa (Sinemet), antipsychotics, such as Haldol, reduce the efficacy of Levodopa. At this point, my initial recommendation would be discontinuation of Haldol and if anti-psychotic needed, would recommend use of Seroquel. However, I do not feel comfortable discontinuing or changing anti-psychotic medication without psychiatry being on board. In addition, at this point Sinemet likely resulting in no improvement or influence on symptoms, and would recommend that it at least be reduced to 1 tablet with breakfast, lunch and dinner before being further reduced and discontinued. For treatment of parkinsonism once anti-psychotic changed, would then recommend use of Artane (anticholinergic) with possible retrial of amantadine. Again, given patient's history of schizophrenia, and doses of medication that patient is on, I do not feel comfortable changing antipsychotics unless psychiatry also on board. It may best serve patient to be admitted to an inpatient psychiatry unit where both neurology and psychiatry can evaluate patient through medication changes. SIGNATURE: Martha Chowdary MD PATIENT NAME: Sherita Jurado DATE: September 03, 2017 TIME: 6:47 PM PAGER: [phone] HISTORY PHYSICAL Observed: 09/03/2017 Status: COMPLETED Source: [facility] 6:44 PM [facility] OTHER CAMPUS REPOSITORY [facility] ID: [id number] Author: Samira Garcia Service: Hospital Medicine Author Type: Nurse Practitioner Type: HANDP Filed: 09/03/2017 7:32 PM Note Text: Attestation signed by Francisco Starks at 09/03/2017 8:24 PM [facility] STAFF PHYSICIAN NOTE OF PERSONAL INVOLVEMENT IN CARE I have reviewed the history and physical examination obtained and documented by the physician autopsy assistant and I personally participated in the vernon components. I have discussed the case and management of the patient's care. 71 Y M with PMH of schizophrenia, dizziness, resting tremor, vitamin D deficiency who lives in skilled nursing, comes in for evaluation of worsening tremors for last 2 months, difficulty performing his ADL's and frquent falls. Avinash other complaints. Neurology appointment is 2 months away from now and staff at skilled nursing couldn't able to manage him. A/P: Could be medication related vs worsening underlying disease Consulted neurology Advised psych consult, wean off halodol if possible and try Seroquel if possible Advised Rhonda/psych in pt mx to adjust the medications closely Francisco Starks MD HOSPITAL MEDICINE HISTORY AND PHYSICAL EXAM PATIENT NAME: Sherita Jurado SERVICE DATE: 09/03/2017 SERVICE TIME: 6:44 PM Primary Care Physician: David Hidalgo MD NIGHT COVERAGE Page [phone] for any questions between 5.30p-7.30a ASSESSMENT AND PLAN Active Hospital Problems Diagnosis - Tremors of nervous system -worsening over last 2-3 months after risperdal was stopped -neuro consulted -care management consulted to help with discharge planning- from skilled nursing and needing more assistance with ADL's -PT/OT consulted -fall precautions -psych consulted - Trouble swallowing -over 2-3 months -swallow eval, liquid diet for now -nutrition consulted, 25lbs weight loss in 2-3 months SUBJECTIVE CHIEF COMPLAINT: tremors HPI: This is a 71 year old male who presents with PMH of schizophrenia, dizziness, resting tremor, vitamin D deficiency who comes in for evaluation of worsening tremors for last 2 months. Patient is from skilled nursing and care analyst was concerned because his tremors have been worse and preventing him from performing his ADL's and frquent falls. In April of 2017 patient's Risperdal was discontinued due to patient's tremor and concern it was secondary to long-term Risperdal use. Despite this patient's tremor actually worsened as well as he started having choking episodes while eating. Multiple medications including Geodon, Sinemet and Haldol have been started without any improvement or resolution of tremor or swallowing issues. Denies any chest pain, SOB, n/v/d, fevers/chills. He does reports some trouble urinating, but no burning or pain. PAST MEDICAL HISTORY: PAST MEDICAL HISTORY Diagnosis Date - Actinic keratosis - Breast lump LT breast; cavernous hemangioma/excised - Dizziness - Epidermoid cyst of skin - Lipoma of skin forearms and abdomen - Mammogram abnormal suspicious of cancer- referral made - Obesity - On upper doubler drug therapy - Palpitations - Schizophrenia (HCC) - Tremor - Vitamin D deficiency PAST SURGICAL HISTORY: PAST SURGICAL HISTORY Procedure Laterality Date - NONE FAMILY HISTORY: FAMILY HISTORY Problem Relation Age of Onset - Family history unknown: Yes SOCIAL HISTORY: Social History Substance Use Topics - Smoking status: Former Smoker - Smokeless tobacco: Never Used - Alcohol use No MEDICATIONS: Reviewed ALLERGIES: ALLERGIES Allergen Reactions - Goose Feathers Allen* Unknown - Zyprexa [Olanzapine] Unknown REVIEW OF SYSTEM: PAIN ASSESSMENT: Negative for pain, history of chronic pain, or current treatment for a chronic pain condition. GENERAL: No malaise or fevers. Unintentional weight loss of 25 lbs over 2-3 months. HEENT: Negative for frequent or significant headaches, No changes in hearing or vision, no nose bleeds or other nasal problems. Trouble swallowing NECK: Negative for lumps, goiter, pain and significant neck swelling RESPIRATORY: Negative for cough, hemoptysis, wheezing or shortness of breath CARDIOVASCULAR: Negative for chest pain, leg swelling or palpitations. GI: No nausea, vomiting, or diarrhea : No history of dysuria, frequency or incontinence. MUSCULOSKELETAL: Negative for joint pain or swelling, back pain or muscle pain. SKIN: Negative for lesions, rash, and itching. PSYCH: Negative for sleep disturbance, mood disorder and recent psychosocial stressors. HEMATOLOGY/LYMPHOLOGY: Negative for prolonged bleeding, bruising easily or swollen nodes. ENDOCRINE: Negative for cold or heat intolerance, polyuria, polydipsia and goiter. NEURO: No history of headaches, syncope, paralysis, seizures. Positive for worsening tremors OBJECTIVE PHYSICAL EXAM: BP 134/73 Pulse 82 Temp (Src) 97.7 (Oral) Resp 18 Wt 184 lb (83.5kg) SpO2 95% GENERAL: alert, no distress, cooperative SKIN: Skin color, texture, turgor normal. No rashes or lesions. HEAD/SINUSES: No significant findings. EYES: PERRLA and EOMI OROPHARYNX: Lips, mucosa, and tongue normal. Teeth and gums normal. Oropharynx normal. NECK: no jugulovenous distention, no carotid bruits, carotid pulse normal contour, supple BACK: Back symmetric, Normal curvature, ROM normal, No CVAT. LUNGS: Lungs clear to auscultation. Good diaphragmatic excursion. CARDIAC: normal S1 and S2; no rubs, murmurs, or gallops ABDOMEN: Abdomen soft, non-tender. BS hypoactive. No masses or organomegaly. EXTREMITIES: Extremities normal. No deformities, edema, clubbing or skin discoloration. No ulcers. NEURO: Gait normal. Reflexes normal and symmetric. Sensation grossly intact. Cranial nerves II-XII intact. Tremors PULSES: 2+ radial, 2+ carotid DATA: Diagnostic tests reviewed for today's visit: Most recent labs Most recent imaging Most recent EKG CBC: WBC 7.62 09/03/2017 HGB 15.7 09/03/2017 Hematocrit 46.2 09/03/2017 Platelet Count 249 09/03/2017 CMP: Sodium 136 09/03/2017 Potassium 3.9 09/03/2017 BUN 10 09/03/2017 Creatinine 0.69 09/03/2017 Glucose 89 09/03/2017 Chloride 96 09/03/2017 CO2 28 09/03/2017 VTE Prophylaxis: Pneumatic Compression Device Disposition: Home Plan of care discussed with: Patient and nursing SIGNATURE: Samira Garcia APRN.CNP DATE: September 03, 2017 TIME: 6:44 PM NURSING PROG Observed: 09/03/2017 Status: COMPLETED Source: [facility] 6:30 PM CLINIC OTHER CAMPUS REPOSITORY HNO ID: [id number] Author: Kameron Dacosta (Rn) JOSE Allen Service: Nursing Author Type: Registered Nurse Type: Nursing Progress Note Filed: 09/03/2017 7:04 PM Note Text: Nursing Progress Note Patient Name: Sherita Jurado Patient Location: [facility] [place]-[id number] 1830- Transfer Note: Patient transferred into room/unit 320-2 in stable condition. Actions taken: No futher actions taken at this time. Will continue to monitor and check with patient. Neuro on floor and into see patient. 1845- Patient ambulated in room with assist of 2 RN and 1 MD. This note was completed by: Kameron Allen RN ED NOTE Observed: 09/03/2017 Status: COMPLETED Source: [facility] 6:12 PM [facility] REPOSITORY HNO ID: [id number] Author: Nga SpencerRn) JOSE Boss Service: (none) Author Type: Registered Nurse Type: ED Notes Filed: 09/03/2017 6:12 PM Note Text: Report was called to Kamila GARCIA Pt was updated of his bed assignment ED NOTE Observed: 09/03/2017 Status: COMPLETED Source: [facility] 6:00 PM [facility] HNO ID: [id number] Author: Nga Watts) JOSE Boss Service: (none) Author Type: Registered Nurse Type: ED Notes Filed: 09/03/2017 6:01 PM Note Text: Pt is in a position of comfort he is currently watching tv He is able to hold the remote in his hands He has the constant tremors though at times they are less and then they become more intense and he bangs his hands and feet on the er bed He remains alert and oriented times 3 Through out the tremor activity ED NOTE Observed: 09/03/2017 Status: COMPLETED Source: [facility] 5:58 PM [facility] OTHER [place] REPOSITORY HNO ID: [id number] Author: Nga Boss RN Service: (none) Author Type: Registered Nurse Type: ED Notes Filed: 09/03/2017 5:59 PM Note Text: Heads up was called to Lennox Ambriz RN ED NOTE Observed: 09/03/2017 Status: COMPLETED Source: [facility] 5:32 PM [facility] OTHER [place] REPOSITORY HNO ID: [id number] Author: Nga Watts) JOSE Boss Service: (none) Author Type: Registered Nurse Type: ED Notes Filed: 09/03/2017 5:33 PM Note Text: Pt remains having tremors He denies any pain Alert and oriented times 3 CT BRAIN WO IVCON Observed: 09/03/2017 Status: F Source: [facility] 4:57 PM [facility] OTHER CAMPUS REPOSITORY * * *Final Report* * * DATE OF EXAM: Sep 03 2017 4:57PM [facility] [place] [facility] [place] BRAIN WO IVCON / PROCEDURE REASON: Muscle weakness (generalized) * * * * Physician Interpretation * * * * HISTORY: Study was performed within 24 hours of admission to the hospital. Muscle weakness. COMPARISON :06/30/2009 RESULT: Motion artifact limits detailed moderately. Scans through the head were performed without contrast. Mild diffuse prominence of the ventricular system, basal cisterns and cortical sulci is seen consistent with the patient's age. There is no evidence of mass lesion or edema. No intracranial hemorrhage or infarction is seen. No focal bony abnormality is appreciated. IMPRESSION: Age-related changes. Otherwise unremarkable CT scans of the head. Motion artifact limits detail. CT Ionizing Radiation: CT Dose Length Product (DLP): 1271 mG*y cm CT Dose Reduction Employed: No dose reduction techniques were required Search Engine Optimization Analyst: WILLOW Transcribe Date/Time: Sep 03 2017 5:05P Dictated by : RGEINALD DIETRICH MD This examination was interpreted and the report reviewed and electronically signed by: REGINALD DIETRICH MD on Sep 03 2017 5:10PM EST [id number] ED NOTE Observed: 09/03/2017 Status: COMPLETED Source: [facility] 4:56 PM [facility] OTHER [place] REPOSITORY HNO ID: [id number] Author: Nga Boss RN Service: (none) Author Type: Registered Nurse Type: ED Notes Filed: 09/03/2017 4:56 PM Note Text: Pt to ct scan per the er cart and tech was bedside CASE MGT INIT Observed: 09/03/2017 Status: COMPLETED Source: [facility] 4:44 PM [facility] OTHER [place] REPOSITORY HNO ID: [id number] Author: Nena Noel (Sw) Service: (none) Author Type: Mathematics Faculty Member Type: Care Mgt Initial Assessment Filed: 09/03/2017 5:50 PM Note Text: CARE MANAGEMENT: ASSESSMENT AND DISCHARGE PLAN SERVICE DATE: 09/03/2017 SERVICE TIME: 3:00 pm PRIMARY CARE PHYSICIAN: David Hidalgo MD ADMISSION STATUS: Emergency Needs Prior to Discharge: Accepting Facility;Facility or Agency Choices;Discharge Transportation;Home Care Order;OT/PT Evaluation 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 No Advance Directive: Pt has legal guardian Health Literacy: Not assessed during this encounter FUNCTIONAL AND COGNITIVE/BEHAVIORAL PRIOR TO ADMISSION: Baseline Mental Status: Alert AND Oriented, Person, Place , Time and Situation Functional Status: Needs Assistance Does Patient Currently Receive Any Community Services or Home Care? Private-Duty Nursing Psychiatry Equipment Prior to Admission: None Has the Patient Been in a Penitentiary Facility in the Past 30 days? No SOCIAL: Living Arrangement: [facility] Lives With: N/A Patient From Facility Financial Resources: Disabled Primary Contact: Extended Emergency Contact Information Primary Emergency Contact: XuanMartha Hadley Mobile Relation: Guardian Supportive: Unable to assess at this time Other Important Patient Contacts: Roberto Mishra) [employer] of skilled nursing [phone] or [employer] [phone] Caregiver Assessment: Caregiver is ready, willing and able to meet the patient's needs as recommended by the inter-professional team? Needs are unknown at this time Patient's transition needs and plan for meeting these needs: Pt is from [facility] and it is unclear what the pt's needs are at this time Does the patient have an acute stroke diagnosis, or has the patient had a stroke during this admission? No Medication Adherence: Not addressed during this assessment as pt lives in skilled nursing Are you interested in bedside delivery of your medications? No Food Concerns: In the Last Month, Have You had Trouble Getting Food? No trouble getting food During the Last Month, Have You Worried Whether Your Food Would Run Out Before You Had Enough Money to Buy More? No Is the Patient Psychosocially Complex? No ASSESSMENT AND PLAN: Medical Needs: Tremor Psychosocial Needs: Mental Health Diagnosis: Schizophrenia FREEDOM OF CHOICE EXPLAINED: N/A POTENTIAL TRANSITION PLANS [facility]/Supervised Living Home Care Penitentiary Facility/Intermediate Care Facility IRENA requested SW speak with procedure writer from skilled nursing due to pt's condition and possible inability for skilled nursing to provide care for the pt at this time. Per IRENA, pt with worsening tremor and skilled nursing is concerned about pt's safety and ability of the staff to care for the pt at the skilled nursing. JOAO met with pt and Roberto Fofana (Diana), deputy chief executive of the skilled nursing where the pt resides, bedside. Pt does have visible tremor at rest. Per Diana, pt had been living in an independent unit and [facility]. Approximately three months ago, Diana stated they noticed a decline in the pt's functioning and moved him into the main house. Diana reported that in April the pt's beach expert, Dr. Holder, took him off Resperidol and Diana stated this seemed to make the tremor worse. According to Diana, the pt was re-started on the Resperidol as he needs it to treat his schizophrenia. The pt stated he has been unable to eat as the food is falling off the utensil before it reaches his mouth. Diana reported the pt has lost 25 pounds in the past 3 months and is even choking on Ensure. Diana stated the staff at the skilled nursing has been cutting up the pt's food but they are unable to assist with eating. Diana reported the pt and guardian have requested a swallow study from the PCP but the pt has not had this yet. Diana also noted that she and the pt's guardian are concerned about the pt's safety at the skilled nursing. Diana mentioned the pt has fallen out of bed a couple of times and she does not want the pt to get a serious injury. Diana stated there is an aide to assist the pt with dressing and bathing but confirmed the pt has no skilled services. Diana told JOAO that the pt has an appointment with neurology scheduled for October 16 but she does not believe the pt can wait until that time to be seen. Diana is hopeful the pt can have PT/OT evaluations and possibly go to SNF for rehab. Diana reported she had to return to work and confirmed the pt would be safe in his room. Diana provided her business card and requested an update on plan of care. ED RN informed. 5:40 pm spoke with guardian Conrad Govea with update of plan of care. Conrad confirmed ok to call him anytime and to call again if he doesn't answer the first time. Conrad gave permission for to contact Diana with update as well. SIGNATURE: PEDRO CRAVEN PATIENT NAME: Sherita Jurado DATE: September 03, 2017 TIME: 4:44 PM PAGER/CONTACT #: [phone] ED NOTE Observed: 09/03/2017 Status: COMPLETED Source: [facility] 4:12 PM CLINIC OTHER CAMPUS REPOSITORY HNO ID: [id number] Author: Nga SpencerRn) JOSE Boss Service: (none) Author Type: Registered Nurse Type: ED Notes Filed: 09/03/2017 4:13 PM Note Text: Dr stone rounds on the pt Pt is still having tremors URINALYSIS Collected: 09/03/2017 Status: F Source: [facility] 4:00 PM CLINIC OTHER CAMPUS REPOSITORY TYPE CODE TESTS RESULT OUT OF RANGE REFERENCE UNITS LAB UCOL Yellow Color Yellow LAB [facility] Clear Clarity Abnormal Slightly Hazy Alert LAB UGLUC Negative mg/dL Glucose, Urine Negative LAB UBIL Negative Bilirubin, Urine Negative LAB UKET Negative Ketones, Urine Negative LAB USPG 1.001-1.029 Specific [place], Ur 1.010 LAB UHGB Negative Hemoglobin/Blood, Negative Ur LAB UPH 5.0-8.0 pH 7.5 LAB UPROT Negative mg/dL Protein, Urine Negative LAB UUROB 0.2-1.0 Urobilinogen 0.2 LAB UNITR Negative Nitrites Negative LAB ULKEST Negative Leukest Negative Performed By: #### UA, UAMIC #### [facility] [address] [phone] URINE MICROSCOPIC Collected: 09/03/2017 Status: F Source: [facility] (FOR LAB USE ONLY) 4:00 PM CLINIC OTHER CAMPUS REPOSITORY TYPE CODE TESTS RESULT OUT OF REFERENCE UNITS RANGE LAB UWBC 0-5 /HPF WBC 0-5 LAB URBC 0-3 /HPF RBC 0-3 LAB UCAST 0 /LPF Cast SEE COMMENT Result Comment: 0 LAB UBACT 0 /HPF Abnormal Occasional Alert Bacteria LAB UCRYS 0 /HPF Abnormal SEE COMMENT Alert Crystals Result Comment: Moderate Amorphous Performed By: #### UA, UAMIC #### [facility] [address] [phone] XR CHEST 1V FRONTAL Observed: 09/03/2017 Status: F Source: [facility] 3:52 PM CLINIC OTHER CAMPUS REPOSITORY * * *Final Report* * * DATE OF EXAM: Sep 03 2017 3:52PM MDX [id number] - XR CHEST 1V FRONTAL PORT / PROCEDURE REASON: Acute resp illness * * * * Physician Interpretation * * * * HISTORY: Acute respiratory illness A single AP portable view of the chest is reviewed without previous comparison films. The cardiac size is not enlarged. The lung pérez are clear. There is no pleural fluid. IMPRESSION: No acute process. Search Engine Optimization Analyst: PSCB Transcribe Date/Time: Sep 03 2017 3:58P Dictated by : REGINALD DIETRICH MD This examination was interpreted and the report reviewed and electronically signed by: REGINALD DIETRICH MD on Sep 03 2017 3:59PM EST [id number] ED NOTE Observed: 09/03/2017 Status: COMPLETED Source: [facility] 3:38 PM [facility] REPOSITORY HNO ID: [id number] Author: Nga SpencerRnJulio César Boss RN Service: (none) Author Type: Registered Nurse Type: ED Notes Filed: 09/03/2017 3:38 PM Note Text: Pt is attempting To void per the urinal in the er bed Pt was instructed not to get out of the bed ED PROV NOTE Observed: 09/03/2017 Status: COMPLETED Source: [facility] 3:37 PM [facility] REPOSITORY HNO ID: [id number] Author: Renetta MunizCJulio César Malcolm Service: (none) Author Type: Physician Ssis Ssrs Developer Type: ED Provider Notes Filed: 09/03/2017 5:55 PM Note Text: ED Provider Note Patient Name: Sherita Jurado SERVICE DATE: 09/03/17 History No chief complaint on file. This is a 71 y/o male PMHx of schizophrenia, dizziness, resting tremor, vitamin D deficiency here with skilled nursing caregiver for progressively worsening tremor over the past few months. Patient lives in a skilled nursing. His skilled nursing caregiver is at bedside to assist with HPI. In April of 2017 patient's Risperdal was discontinued due to patient's tremor and concern it was secondary to long-term Risperdal use. Despite this patient's tremor actually worsened as well as he started having choking episodes while eating. Multiple medications including Geodon, Sinemet and Haldol have been started without any improvement or resolution of tremor or swallowing issues. He is able to tolerate solids however food must be cut down into small pieces and he has been having difficulty feeding himself due to significant tremor and therefore has allegedly lost approximately 25 lbs over a course of 2-3 months. Over past few months patient has had frequent falls and his ability to perform ADL have significantly decreased due to tremor. The skilled nursing is now having difficulty caring for patient and he is unable to see neurologist for first time until October 16. The guardian is requesting that patient be assessed and placed in short term nursing facility until he is able to care for himself again. No reported recent fevers, vomiting, diarrhea, urinary symptoms, focal weakness or numbness, chest pain, difficulty breathing, cough, headache, bloody stools or altered mental status. PAST MEDICAL HISTORY Diagnosis Date - Actinic keratosis - Breast lump LT breast; cavernous hemangioma/excised - Dizziness - Epidermoid cyst of skin - Lipoma of skin forearms and abdomen - Mammogram abnormal suspicious of cancer- referral made - Obesity - On upper doubler drug therapy - Palpitations - Schizophrenia (HCC) - Tremor - Vitamin D deficiency PAST SURGICAL HISTORY Procedure Laterality Date - NONE FAMILY HISTORY Problem Relation Age of Onset - Family history unknown: Yes Social History Social History Main Topics - Smoking status: Former Smoker - Smokeless tobacco: Never Used - Alcohol use No - Drug use: No - Sexual activity: Not on file ALLERGIES Allergen Reactions - Goose Feathers Allen* Unknown - Zyprexa [Olanzapine] Unknown Review of Systems Constitutional: Positive for unexpected weight change (unintentional 25 lb weight loss over 2-3 months). Negative for chills and fever. HENT: Positive for trouble swallowing. Negative for voice change. Eyes: Negative for visual disturbance. Respiratory: Negative for cough and shortness of breath. Cardiovascular: Negative for chest pain. Gastrointestinal: Negative for abdominal pain, blood in stool, diarrhea, nausea and vomiting. Genitourinary: Negative for difficulty urinating, frequency, hematuria and urgency. Musculoskeletal: Negative for back pain and neck pain. Skin: Negative for rash. Allergic/Immunologic: Negative for immunocompromised state. Neurological: Positive for dizziness (chronic ) and tremors. Negative for seizures, syncope, facial asymmetry, speech difficulty, weakness, light-headedness and headaches. Hematological: Does not bruise/bleed easily. Physical Exam BP 136/114 Pulse 110 Temp 98.4 Resp 20 Wt 184 lb (83.5kg) SpO2 98% Physical Exam Constitutional: He is oriented to person, place, and time. He appears well-developed and well-nourished. No distress. HENT: Head: Normocephalic and atraumatic. Mucous membranes do appear dry Eyes: Conjunctivae and EOM are normal. Pupils are equal, round, and reactive to light. b/l proptosis present Neck: Neck supple. Cardiovascular: Regular rhythm. Tachycardic upon arrival to ED however when I evaluated patient HR 82. Pulmonary/Chest: Effort normal. No respiratory distress. He has no wheezes. He has no rales. Abdominal: Soft. He exhibits no distension. There is no tenderness. There is no guarding. Hypoactive BS x 4 Musculoskeletal: He exhibits no edema. GODINEZ x 4. Neurological: He is alert and oriented to person, place, and time. No cranial nerve deficit. Coordination (2/2 to pronounced essential tremor) abnormal. Awake and alert. Normal speech. Nursing note and vitals reviewed. Diagnostic Testing Results for orders placed or performed during the hospital encounter of 09/03/17 CBC + DIFF Result Value Ref Range WBC 7.62 3.70 - 11.00 k/uL RBC 4.79 4.20 - 6.00 m/uL Hemoglobin 15.7 13.0 - 17.0 g/dL Hematocrit 46.2 39.0 - 51.0 % MCV 96.5 80.0 - 100.0 fL MCH 32.8 26.0 - 34.0 pG MCHC 34.0 30.5 - 36.0 g/dL RDW-CV 12.2 11.5 - 15.0 % Platelet Count 249 150 - 400 k/uL MPV 9.1 9.0 - 12.7 fL Neut% 75.6 % Abs Neut (ANC) 5.76 1.45 - 7.50 k/uL Lymph% 16.4 % Abs Lymph 1.25 1.00 - 4.00 k/uL Ceiba% 6.7 % Abs Ceiba 0.51 <0.87 k/uL Eosin% 0.8 % Abs Eosin 0.06 <0.46 k/uL Baso% 0.5 % Abs Baso 0.04 <0.11 k/uL COMP METABOLIC PANEL Result Value Ref Range Protein, Total 7.8 6.3 - 8.0 g/dL Albumin 3.9 3.9 - 4.9 g/dL Calcium 9.4 8.5 - 10.2 mg/dL Bilirubin, Total 0.7 0.2 - 1.3 mg/dL Alkaline Phosphatase 69 36 - 108 U/L AST 15 14 - 40 U/L Glucose 89 74 - 99 mg/dL BUN 10 9 - 24 mg/dL Creatinine 0.69 (L) 0.73 - 1.22 mg/dL Sodium 136 136 - 144 mmol/L Potassium 3.9 3.7 - 5.1 mmol/L Chloride 96 (L) 97 - 105 mmol/L CO2 28 22 - 30 mmol/L Anion Gap 12 9 - 18 mmol/L ALT 6 (L) 10 - 54 U/L eGFR- >60 eGFR-All Other Races >60 . TSH BLD Result Value Ref Range TSH 2.430 0.400 - 5.500 uU/mL MAGNESIUM BLD Result Value Ref Range Magnesium 2.1 1.7 - 2.3 mg/dL URINALYSIS Result Value Ref Range Color Yellow Yellow Appearance (U) Slightly Hazy (A) Clear Glucose, Urine Negative Negative mg/dL Bilirubin, Urine Negative Negative Ketones, Urine Negative Negative Specific [place], Ur 1.010 1.001 - 1.029 Hemoglobin/Blood,Ur Negative Negative pH, Urine 7.5 5.0 - 8.0 Protein, Urine Negative Negative mg/dL Urobilinogen 0.2 0.2 - 1.0 Nitrites Negative Negative Leukest Negative Negative TROPONIN T Result Value Ref Range Troponin T <0.010 0.000 - 0.029 ng/mL URINE MICROSCOPIC Result Value Ref Range WBC, Urine 0-5 0 - 5 /HPF RBC, Urine 0-3 0 - 3 /HPF Cast SEE COMMENT 0 /LPF Bacteria Occasional (A) 0 /HPF Crystal SEE COMMENT (A) 0 /HPF CT BRAIN WO IVCON (Final result) Result time 09/03/17 17:12:30 Final result by [facility] [place] Provider (09/03/17 17:12:30) Impression: IMPRESSION: Age-related changes. ?Otherwise unremarkable CT scans of the head. ?Motion artifact limits detail. CT Ionizing Radiation: CT Dose Length Product (DLP): ?1271 ?mG*y cm CT Dose Reduction Employed: ?No dose reduction techniques were required Search Engine Optimization Analyst: WILLOW ? Transcribe Date/Time: Sep 03 2017 ?5:05P Dictated by : REGINALD DIETRICH MD This examination was interpreted and the report reviewed and electronically signed by: REGINALD DIETRICH MD on Sep 03 2017 ?5:10PM ?EST XR CHEST 1V FRONTAL PORT (Final result) Result time 09/03/17 16:01:19 Final result by [facility] [place] Provider (09/03/17 16:01:19) Impression: IMPRESSION: No acute process. Search Engine Optimization Analyst: WILLOW ? Transcribe Date/Time: Sep 03 2017 ?3:58P Dictated by : REGINALD DIETRICH MD This examination was interpreted and the report reviewed and electronically signed by: REGINALD DIETRICH MD on Sep 03 2017 ?3:59PM ?EST -EKG: SR with fusion complexes. -differential includes infectious etiology, Trousdale disease, Parkinson's, medication induced, electrolyte disturbances, dehydration Procedures Medical Decision Making MDM This is 71 y/o male PMHx of Schizophrenia resides in skilled nursing here with caregiver for evaluation of progressively worsening tremor, dysphagia and unintentional weight loss with inability to care for self including feeding himself 2/2 to pronounced tremor. Upon arrival to ED patient is tachycardia, otherwise HD stable. Afebrile. No respiratory distress or hypoxia. Routine labs obtained and no significant abnormalities. CT brain wo contrast neg for acute intracranial process. No underlying source of infection identified. Clinical exam c/w significant essential tremor, etiology unknown at this time. Patient will be admitted to medicine service for neurology consult and evaluation of placement in short term nursing facility. ED Course / Clinical Impression ED Course as of Sep 03 1726 Avi Stone's Documentation Wed September 03, 2017 1616 Attending Note I have personally performed a face to face assessment of the patient and have reviewed the PA/CRM SOLUTION ARCHITECT note. My vernon findings include: History - Mr. Jruado is a pleasant 71 yo M presenting w/ months of worsening diffuse tremor, worse w/ movement. Stopped requip and got worse. PCP managing, supposed to see neuro, 1st available is in October. Nothing unilateral. Exam - impressive tremor all 4 extremities worse w/ movement, no focal weakness/numbness Assessment/Plan - w/u here and admission for placement and neurology to see (can't get appropriate care at skilled nursing anymore). ? Essential tremor or Trousdale's or med side effect. Dr. Starks will admit. Clinically less likely tardive dyskinesia (haldol use) as no abnl tongue movements. Other additions or changes: None Signature: Avi Stone MD Date: 09/03/2017 Time: 4:16 PM Clinical Impressions as of Sep 03 1726 Tremor Plan The patient was admitted to medicine service. SIGNATURE: IRENA Guerrero Pa-C 09/03/17 0351 CBC AND DIFFERENTIAL Collected: 09/03/2017 Status: F Source: [facility] 3:28 PM CLINIC OTHER CAMPUS REPOSITORY TYPE CODE TESTS RESULT OUT OF REFERENCE UNITS RANGE LAB WBC 3.70-11.00 k/uL WBC 7.62 LAB RBC 4.20-6.00 m/uL RBC 4.79 LAB HGB 13.0-17.0 g/dL Hemoglobin 15.7 LAB HCT 39.0-51.0 % Hematocrit 46.2 LAB MCV 80.0-100.0 fL MCV 96.5 LAB MCH 26.0-34.0 pG MCH 32.8 LAB MCHC 30.5-36.0 g/dL MCHC 34.0 LAB RDWCV 11.5-15.0 % RDW-CV 12.2 LAB PLTCT 150-400 k/uL Platelet Count 249 LAB MPV 9.0-12.7 fL MPV 9.1 LAB ANEUT % Neut% 75.6 LAB AANEUT 1.45-7.50 k/uL Abs Neut 5.76 LAB ALYMP % Lymph% 16.4 LAB AALYMP 1.00-4.00 k/uL Abs Lymph 1.25 LAB AMONO % Ceiba% 6.7 LAB AAMONO <0.87 k/uL Abs Ceiba 0.51 LAB AEOS % Eosin% 0.8 LAB AAEOS <0.46 k/uL Abs Eosin 0.06 LAB ABASO % Baso% 0.5 LAB AABASO <0.11 k/uL Abs Baso 0.04 Performed By: #### CBCDIF, CMP, MG1 #### [facility] [address] [place] [address] COMP METABOLIC PANEL Collected: 09/03/2017 Status: F Source: [facility] 3:28 PM CLINIC OTHER CAMPUS REPOSITORY TYPE CODE TESTS RESULT OUT OF REFERENCE UNITS RANGE LAB TP 6.3-8.0 g/dL Protein, Total 7.8 LAB ALB 3.9-4.9 g/dL Albumin 3.9 LAB CA 8.5-10.2 mg/dL Calcium, Total 9.4 LAB TBIL 0.2-1.3 mg/dL Bilirubin, Total 0.7 LAB ALKP 36-108 U/L Alkaline Phosphatase 69 LAB AST 14-40 U/L AST 15 LAB GLU 74-99 mg/dL Glucose 89 Result Comment: The [place] Diabetes [employer] (ADA) provides guidance for cutoff values for fasting glucose and random glucose. The ADA defines fasting as no caloric intake for at least 8 hours. Fas ting plasma glucose results between 100 to 125 mg/dL indicate increased risk for diabetes (prediabetes). Fasting plasma glucose results greater than or equal to 126 mg/dL meet the criteria for diagnosis of diabetes. In the absence of unequivocal hyperglycemia, results should be confirmed by repeat testing. In a patient with classic symptoms of hyperglycemia or hyperglycemic crisis, random plasma glucose results greater than or equal to 200 mg/dL meet the criteria for diagnosis of diabetes. Reference: Standards of Medical Care in Diabetes 2016, [place] [employer]. Diabetes Care. 2016.39(Suppl 1). LAB BUN 9-24 mg/dL BUN 10 LAB CRET 0.73-1.22 mg/dL Creatinine Low 0.69 LAB NA 136-144 mmol/L Sodium 136 LAB K 3.7-5.1 mmol/L Potassium 3.9 LAB CL 97-105 mmol/L Chloride Low 96 LAB CO2 22-30 mmol/L CO2 28 LAB AGAP 9-18 mmol/L Anion Gap 12 LAB ALT 10-54 U/L ALT Low 6 LAB GFRAA eGFR- Amer. >60 LAB GFRNAA . eGFR-All Other Races >60 Result Comment: eGFR (Estimated GFR) Units of measure: mL/min/1.73 meters squared eGFR is derived from the reexpressed MDRD Study equation using the following parameters: serum creatinine, age, gender and race. The creatinine assay has been calibrated to be traceable to IDMS. An eGFR <60 mL/min/1.73m2 for >3 months is consistent with chronic kidney disease. Refer to KDOQI guidelines for clinical interpretation. In patients with unstable renal function, e.g. those with acute kidney injury, the eGFR may not accurately reflect actual GFR. Performed By: #### CBCDIF, CMP, MG1 #### [facility] [address] [facility] [phone] MAGNESIUM Collected: 09/03/2017 Status: F Source: [facility] 3:28 PM [facility] OTHER [place] REPOSITORY TYPE CODE TESTS RESULT OUT OF REFERENCE UNITS RANGE LAB MG 1.7-2.3 mg/dL Magnesium 2.1 Performed By: #### CBCDIF, CMP, MG1 #### [facility] [address] [facility] [phone] TROPONIN T Collected: 09/03/2017 Status: F Source: [facility] 3:28 PM [facility] REPOSITORY TYPE CODE TESTS RESULT OUT OF REFERENCE UNITS RANGE LAB TROPT 0.000-0.029 ng/mL Troponin T <0.010 Performed By: #### ATTILA #### [facility] [address] [place] [address] TSH Collected: 09/03/2017 Status: F Source: [facility] 3:28 PM [facility] REPOSITORY TYPE CODE TESTS RESULT OUT OF RANGE REFERENCE UNITS LAB TSH 0.400-5.500 uU/mL TSH 2.430 Performed By: #### TSH #### [facility] [address] [place] [address] ED NOTE Observed: 09/03/2017 Status: COMPLETED Source: [facility] 3:08 PM [facility] REPOSITORY HNO ID: [id number] Author: Nga (Rn) JOSE Boss Service: (none) Author Type: Registered Nurse Type: ED Notes Filed: 09/03/2017 3:08 PM Note Text: Mathematics Faculty Member is bedside at this time change attendant remains with the pt CNNURSE Observed: 09/02/2017 Status: COMPLETED Source: [facility] 10:15 AM [facility] REPOSITORY Nurse Visit (AGINTMLW) SHERITA JURADO ([id number]) 1945 M Date Time Provider Department 09/02/17 10:15 AM NURSE EDGAR PACHECO AGINTMLW During your visit today, we recorded the following information about you: Deanne Jones CMA 09/02/2017 10:53 AM Signed Pt here for weekly b12 injection. Patient has been identified by name and date of : Yes Sherita is here for an injection of Vitamin B12 Dose: 1ml Route: Intramuscular Given without incident. 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 Hidalgo present in clinic at time of injection. The date due for the next injection is 1 week. Deanne Jones CMA Referring Provider: DAVID HIDALGO [[id number]] Allergies As of Date: 09/02/2017 Noted Allergy Reaction GOOSE FEATHERS ALLERGENIC EXTRACT 11/08/2016 16 - Unknown ZYPREXA (OLANZAPINE) 11/08/2016 16 - Unknown Date Reviewed: 08/25/2017 Reviewed by: Mayra ([facility]) Art - Fully Assessed Reason for Visit: Nurse Visit [792] Primary Visit Diagnosis:B12 deficiency [E53.8] Order(s):ADMIN VITAMIN B12 INJ [[id number]] Order #: [id number] Prescriptions as of 09/02/2017 Sig: BENZTROPINE 1 MG TABLET Take 2 mg by mouth twice priyanka* HALOPERIDOL 5 MG TABLET Take 5 mg by mouth twice priyanka* CARBIDOPA 25 MG-LEVODOPA 100 * Take 2 tablets by mouth three* OTC PRODUCT CBD oil 5 drops 3 times daily* VITAMIN D3 1,000 UNIT TABLET Take 1,000 Units by mouth onc* DONEPEZIL 23 MG TABLET Take 1 tablet by mouth daily * Problem List As Of Date 09/02/2017 Noted Resolved B12 deficiency [E53.8] INVALID FOR* Visit Notes: >> Deanne SpencerMadelineJulio César Jones FriSeptember 02, 2017 10:49 AM Status: Signed Pt here for weekly b12 injection. Patient has been identified by name and date of : Yes Sherita is here for an injection of Vitamin B12 Dose: 1ml Route: Intramuscular Given without incident. 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 Hidalgo present in clinic at time of injection. The date due for the next injection is 1 week. Deanne Jones CMA Encounter Status:Closed by DEANNE JONES on 09/02/17 CNNURSE Observed: 08/26/2017 Status: COMPLETED Source: [facility] 10:45 AM [facility] REPOSITORY Nurse Visit (AGINTMLW) SHERITA JURADO ([id number]) 1945 M Date Time Provider Department 08/26/17 10:45 AM NURSE EDGAR PACHECO AGINTMLW During your visit today, we recorded the following information about you: Kendal Cabrales CMA 08/26/2017 10:37 AM Signed Patient has been identified by name and date of : Yes Sherita is here for an injection of Vitamin B12 Dose: 1 ml Route: Intramuscular Given without incident. Site: right deltoid Exhaust Equipment Operator: [employer] Lot #: [id number] [facility] #: [id number] Expiration Date: 02/2019 Chani Pelaez present in clinic at time of injection. The date due for the next injection is 1 week. Kendal Cabrales CMA Referring Provider: SELF [[id number]] Allergies As of Date: 08/26/2017 Noted Allergy Reaction GOOSE FEATHERS ALLERGENIC EXTRACT 11/08/2016 16 - Unknown ZYPREXA (OLANZAPINE) 11/08/2016 16 - Unknown Date Reviewed: 08/25/2017 Reviewed by: Mayra ([facility]) Art - Fully Assessed Reason for Visit: Nurse Visit [792] Primary Visit Diagnosis:B12 deficiency [E53.8] Order(s):cyanocobalamin 1,000 mcg injectionDisp: Rfl: Prescriptions as of 08/26/2017 Sig: BENZTROPINE 1 MG TABLET Take 2 mg by mouth twice priyanka* HALOPERIDOL 5 MG TABLET Take 5 mg by mouth twice priyanka* CARBIDOPA 25 MG-LEVODOPA 100 * Take 2 tablets by mouth three* OTC PRODUCT CBD oil 5 drops 3 times daily* VITAMIN D3 1,000 UNIT TABLET Take 1,000 Units by mouth onc* DONEPEZIL 23 MG TABLET Take 1 tablet by mouth daily * Problem List As Of Date: 08/26/2017 (None) Visit Notes: >> Kendal (Madeline) Kim radha August 26, 2017 10:35 AM Status: Signed Patient has been identified by name and date of : Yes Sherita is here for an injection of Vitamin B12 Dose: 1 ml Route: Intramuscular Given without incident. 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 The date due for the next injection is 1 week. Kendal Cabrales CMA Prescriptions ordered this encounter Disp Refills Start End CYANOCOBALAMIN (VIT B-12) 1,000 MCG/* 08/26/2017 2017 Route: INTRAMUSCULA Medications Discontinued During This Encounter cyanocobalamin 1,000 mcg/mL soln 1 mL 0 08/15/2017 08/26/2017 Class: Print RX Sig: Patient has been identified by name and date of : Yes Sherita is here for an injection of Vitamin B12 Dose: 1ml Route: Intramuscular Given without incident. Site: right deltoid Exhaust Equipment Operator: [employer] Lot #: [id number] [facility] #: [id number] Expiration Date: 02/2019 Dr. Myrick present in clinic at time of injection. The date due for the next injection is 08/18/17. Brigid Villaseñor LPN Disc: Reason for discontinue is not on file. Cosign accepted by MD GWEN, DAVID[[id number]] on 08/17/2017 4:02 PM Level of Service: OFFICE VISIT NO CHARGE WITH PROCEDURE [[id number]] LOS history recorded Follow-up and Disposition History Recorded Encounter Status:Closed by KENDAL CABRALES on 08/26/17 PROGRESS Observed: 08/25/2017 Status: COMPLETED Source: [facility] 12:10 PM [facility] REPOSITORY HNO ID: [id number] Author: David Hidalgo Service: (none) Author Type: Physician Type: Progress Notes Filed: 09/07/2017 11:14 PM Note Text: Subjective: Sherita Jurado is a 71 year old White male, Patient presents with: tremors worsening: seeing neurologist Dr. Reyes in October for the first time trouble swallowing food and has been choking more frequently: started the end of July . HPI Here with staff member from skilled nursing. Per staff, pt has been choking on food at times - solids and liquids. Also has been making a mess while eating - d/t tremors, so not been eating much. Will eat if staff keeps encouraging him to do so. custodial has been giving him more finger foods. Staff at are not allowed to feed him. No cough/ SOB/ fever/ chills in past few days. Weight loss - 4 lbs in past 1 month - but per skilled nursing records 25 lbs in past 5 month. Tremors no worse but not improving, been gradually progressing for > 1 yr Risperdal stopped 06/01 , geodon was stopped 08/06/17 and amantadine started but then amantadine was stopped 08/13/17 as it didn't appear to help his symptoms. Sinemet started 08/13/17, sinemet dose increased 08/20/17. Some improvement cognitively but tremors are still unchanged per staff. Fall few days ago trying to get up off the couch. No injuries. No other falls reported. Speech at baseline. His appointment with Dr. Reyes is in October. Guardian - Mr. Cole [phone] PAST MEDICAL HISTORY Diagnosis Date - Actinic keratosis - Breast lump LT breast; cavernous hemangioma/excised - Dizziness - Epidermoid cyst of skin - Lipoma of skin forearms and abdomen - Mammogram abnormal suspicious of cancer- referral made - Obesity - On upper doubler drug therapy - Palpitations - Schizophrenia (HCC) - Tremor - Vitamin D deficiency PAST SURGICAL HISTORY Procedure Laterality Date - NONE Social History Substance Use Topics - Smoking status: Former Smoker - Smokeless tobacco: Never Used - Alcohol use No Family history reviewed. ALLERGIES Allergen Reactions - Goose Feathers Allen* Unknown - Zyprexa [Olanzapine] Unknown Current Outpatient Prescriptions: benztropine (COGENTIN) 1 mg tablet Take 2 mg by mouth twice daily. haloperidol (HALDOL) 5 mg tablet Take 5 mg by mouth twice daily. carbidopa-levodopa (SINEMET) 25-100 mg per tablet Take 2 tablets by mouth three times daily. OTC PRODUCT CBD oil 5 drops 3 times daily highest dose. This was recommended by psychiatrist cyanocobalamin 1,000 mcg/mL chucho Patient has been identified by name and date of : Yes Sherita is here for an injection of Vitamin N53Mhvr: 1mlRoute: IntramuscularGiven without incident.Site: right deltoidManufacturer: [place] [facility] #: [id number] #: [id number] Date: 02/2019Dr. Sheets present in clinic at time of injection.The date due for the next injection is 08/18/17.Brigid Villaseñor LPN VITAMIN D 1,000 unit tab tablet Take 1,000 Units by mouth once daily. Donepezil 23 mg tab Take 1 tablet by mouth daily at bedtime. amantadine HCl (SYMMETREL) 100 mg tablet Take 100 mg by mouth twice daily. ziprasidone (GEODON) 80 mg capsule Take 80 mg by mouth once daily. No current facility-administered medications for this visit. Review of Systems Constitutional: Negative for chills, fever, malaise/fatigue and weight loss. HENT: Negative for congestion, ear pain and sore throat. Eyes: Negative for blurred vision and double vision. Respiratory: Negative for cough, shortness of breath and wheezing. Cardiovascular: Negative for chest pain, orthopnea and leg swelling. Gastrointestinal: Negative for abdominal pain, constipation, diarrhea, heartburn, nausea and vomiting. Genitourinary: Negative for dysuria. Skin: Negative for rash. Neurological: Negative for dizziness and headaches. BP 132/84 Pulse 64 Temp 98.4 Resp 16 Ht 5' 10 (1.78m) Wt 184 lb (83.5kg) BMI 26.40 kg/(m2). Physical Exam Constitutional: He is oriented to person, place, and time and well-developed, well-nourished, and in no distress. No distress. HENT: Head: Normocephalic. Eyes: Conjunctivae and EOM are normal. Pupils are equal, round, and reactive to light. Right eye exhibits no discharge. Left eye exhibits no discharge. Cardiovascular: Normal rate, regular rhythm, normal heart sounds and intact distal pulses. No murmur heard. Pulmonary/Chest: Effort normal and breath sounds normal. No respiratory distress. He has no wheezes. Abdominal: Soft. Bowel sounds are normal. He exhibits no distension. There is no tenderness. Musculoskeletal: Edema: no LE edema. Neurological: He is alert and oriented to person, place, and time. Skin: Skin is warm and dry. Psychiatric: Mood and affect normal. + tremors b/l UE - pin rolling No rigidity noted. ASSESSMENT/PLAN: 1. Dysphagia, unspecified type - ICD9: 787.20, ICD10: R13.10 (primary diagnosis) Will get cookie swallow and ST eval if needed. If (-) Will refer to GI. - XR MODIFIED BARIUM SWALLOW W SPEECH 2. Tremor, coarse - ICD9: 781.0, ICD10: G25.2 Unclear parkinson vs medication induced parkinson On trial of sinemet. Will also contact Dr. Reyes's office to see if an earlier appt can be arranged for pt. 3. Vitamin B 12 deficiency - ICD9: 266.2, ICD10: E53.8 Ongoing replacement. D/w caregiver if the staff at can still take care of pt. She states for now they are, they will let me know if things worsen. Discussed above plan with patient/ caregiver. Pt agreeable with above plan. David Hidalgo MD This note was partially generated using [employer] voice recognition system, and there may be some incorrect words, spellings, and punctuation that were not noted in checking the note before saving. CNOV Observed: 08/25/2017 Status: COMPLETED Source: [facility] 11:30 AM [facility] REPOSITORY Office Visit (AGINTMLW) SHERITA JURADO ([id number]) 1945 M Date Time Provider Department 08/25/17 11:30 AM DAVID HIDALGO During your visit today, we recorded the following information about you: Temperature Pulse Respiration Blood pressure 98.4 degrees 64/minute 16/minute 132/84 Weight Height 83.5 kg 1.778 m David Hidalgo MD 09/07/2017 11:14 PM Signed Subjective: Sherita Jurado is a 71 year old White male, Patient presents with: tremors worsening: seeing neurologist Dr. Reyes in October for the first time trouble swallowing food and has been choking more frequently: started the end of July . HPI Here with staff member from skilled nursing. Per staff, pt has been choking on food at times - solids and liquids. Also has been making a mess while eating - d/t tremors, so not been eating much. Will eat if staff keeps encouraging him to do so. custodial has been giving him more finger foods. Staff at are not allowed to feed him. No cough/ SOB/ fever/ chills in past few days. Weight loss - 4 lbs in past 1 month - but per skilled nursing records 25 lbs in past 5 month. Tremors no worse but not improving, been gradually progressing for > 1 yr Risperdal stopped 06/01 , geodon was stopped 08/06/17 and amantadine started but then amantadine was stopped 08/13/17 as it didn't appear to help his symptoms. Sinemet started 08/13/17, sinemet dose increased 08/20/17. Some improvement cognitively but tremors are still unchanged per staff. Fall few days ago trying to get up off the couch. No injuries. No other falls reported. Speech at baseline. His appointment with Dr. Reyes is in October. Guardian - Mr. Cole [phone] PAST MEDICAL HISTORY Diagnosis Date - Actinic keratosis - Breast lump LT breast; cavernous hemangioma/excised - Dizziness - Epidermoid cyst of skin - Lipoma of skin forearms and abdomen - Mammogram abnormal suspicious of cancer- referral made - Obesity - On retirement drug therapy - Palpitations - Schizophrenia (HCC) - Tremor - Vitamin D deficiency PAST SURGICAL HISTORY Procedure Laterality Date - NONE Social History Substance Use Topics - Smoking status: Former Smoker - Smokeless tobacco: Never Used - Alcohol use No Family history reviewed. ALLERGIES Allergen Reactions - Goose Feathers Allen* Unknown - Zyprexa [Olanzapine] Unknown Current Outpatient Prescriptions: benztropine (COGENTIN) 1 mg tablet Take 2 mg by mouth twice daily. haloperidol (HALDOL) 5 mg tablet Take 5 mg by mouth twice daily. carbidopa-levodopa (SINEMET) 25-100 mg per tablet Take 2 tablets by mouth three times daily. OTC PRODUCT CBD oil 5 drops 3 times daily highest dose. This was recommended by psychiatrist cyanocobalamin 1,000 mcg/mL chucho Patient has been identified by name and date of : Yes Sherita is here for an injection of Vitamin [id number]: 1mlRoute: IntramuscularGiven without incident.Site: right deltoidManufacturer: [place] [facility] #: [id number] #: [id number] Date: 02/2019Dr. Sheets present in clinic at time of injection.The date due for the next injection is 08/18/17.Brigid Villaseñor LPN VITAMIN D 1,000 unit tab tablet Take 1,000 Units by mouth once daily. Donepezil 23 mg tab Take 1 tablet by mouth daily at bedtime. amantadine HCl (SYMMETREL) 100 mg tablet Take 100 mg by mouth twice daily. ziprasidone (GEODON) 80 mg capsule Take 80 mg by mouth once daily. No current facility-administered medications for this visit. Review of Systems Constitutional: Negative for chills, fever, malaise/fatigue and weight loss. HENT: Negative for congestion, ear pain and sore throat. Eyes: Negative for blurred vision and double vision. Respiratory: Negative for cough, shortness of breath and wheezing. Cardiovascular: Negative for chest pain, orthopnea and leg swelling. Gastrointestinal: Negative for abdominal pain, constipation, diarrhea, heartburn, nausea and vomiting. Genitourinary: Negative for dysuria. Skin: Negative for rash. Neurological: Negative for dizziness and headaches. BP 132/84 Pulse 64 Temp 98.4 Resp 16 Ht 5' 10 (1.78m) Wt 184 lb (83.5kg) BMI 26.40 kg/(m2). Physical Exam Constitutional: He is oriented to person, place, and time and well-developed, well-nourished, and in no distress. No distress. HENT: Head: Normocephalic. Eyes: Conjunctivae and EOM are normal. Pupils are equal, round, and reactive to light. Right eye exhibits no discharge. Left eye exhibits no discharge. Cardiovascular: Normal rate, regular rhythm, normal heart sounds and intact distal pulses. No murmur heard. Pulmonary/Chest: Effort normal and breath sounds normal. No respiratory distress. He has no wheezes. Abdominal: Soft. Bowel sounds are normal. He exhibits no distension. There is no tenderness. Musculoskeletal: Edema: no LE edema. Neurological: He is alert and oriented to person, place, and time. Skin: Skin is warm and dry. Psychiatric: Mood and affect normal. + tremors b/l UE - pin rolling No rigidity noted. ASSESSMENT/PLAN: 1. Dysphagia, unspecified type - ICD9: 787.20, ICD10: R13.10 (primary diagnosis) Will get cookie swallow and ST eval if needed. If (-) Will refer to GI. - XR MODIFIED BARIUM SWALLOW W SPEECH 2. Tremor, coarse - ICD9: 781.0, ICD10: G25.2 Unclear parkinson vs medication induced parkinson On trial of sinemet. Will also contact Dr. Reyes's office to see if an earlier appt can be arranged for pt. 3. Vitamin B 12 deficiency - ICD9: 266.2, ICD10: E53.8 Ongoing replacement. D/w caregiver if the staff at can still take care of pt. She states for now they are, they will let me know if things worsen. Discussed above plan with patient/ caregiver. Pt agreeable with above plan. David Hidalgo MD This note was partially generated using [employer] voice recognition system, and there may be some incorrect words, spellings, and punctuation that were not noted in checking the note before saving. Referring Provider: SELF [200] Allergies As of Date: 08/25/2017 Noted Allergy Reaction GOOSE FEATHERS ALLERGENIC EXTRACT 11/08/2016 16 - Unknown ZYPREXA (OLANZAPINE) 11/08/2016 16 - Unknown Date Reviewed: 08/25/2017 Reviewed by: Mayra ([facility]) Art - Fully Assessed Reason for Visit: tremors worsening [Other] Cmt: seeing neurologist Dr. Reyes in October for the first time trouble swallowing food and has been choking more frequently [Other] Cmt: st- ar- te- d th- e en- d of Ap- ril Reason For Visit History Recorded Primary Visit Diagnosis:Dysphagia, unspecified type [R13.10] Other Visit Diagnoses:Tremor, coarse [G25.2] Vitamin B 12 deficiency [E53.8] Order(s):XR MODIFIED BARIUM SWALLOW W SPEECH [[id number]] Order #: [id number] FUTURE Prescriptions as of 08/25/2017 Sig: BENZTROPINE 1 MG TABLET Take 2 mg by mouth twice priyanka* HALOPERIDOL 5 MG TABLET Take 5 mg by mouth twice priyanka* CARBIDOPA 25 MG-LEVODOPA 100 * Take 2 tablets by mouth three* X OTC PRODUCT CBD oil 5 drops 3 times daily* X CYANOCOBALAMIN (VIT B-12) 1,0* Patient has been identified b* DONEPEZIL 23 MG TABLET Take 1 tablet by mouth daily * X VITAMIN D3 1,000 UNIT TABLET Take 1,000 Units by mouth onc* Problem List As Of Date: 08/25/2017 (None) Notes for Staff Discussed this visit Medications Discontinued During This Encounter amantadine HCl (SYMMETREL) 100 mg ta* 08/25/2017 Class: Historical Med Route: ORAL Sig: Take 100 mg by mouth twice daily. Disc: Discontinued by another Health Care Provider ziprasidone (GEODON) 80 mg capsule 08/25/2017 Class: Historical Med Route: ORAL Sig: Take 80 mg by mouth once daily. Disc: Discontinued by another Health Care Provider Follow Up: Discussed this visit Disposition: Return in about 2 weeks (around 09/08/2017), or if symptoms worsen or fail to improve, for tremors, dysphagia. Follow-up and Disposition History Recorded Encounter Status:Closed by MD HIDALGO SIMRANJOT on 09/07/17 CNNURSE Observed: 08/18/2017 Status: COMPLETED Source: [place] 10:15 AM [facility] REPOSIT[facility] Nurse Visit (AGINTMLW) SHERITA JURADO ([id number]) 1945 M Date Time Provider Department 08/18/17 10:15 AM NURSE EDGAR PACHECO AGINTMLJonny During your visit today, we recorded the following information about you: Kendal Cabrales ([facility]) 08/18/2017 11:17 AM Signed Patient has been identified by name and date of : Yes Sherita is here for an injection of Vitamin B12 Dose: 1 ml Route: Intramuscular Given without incident. 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 The date due for the next injection is 08/19/17. Kendal Cabrales CMA Referring Provider: SELF [200] Allergies As of Date: 08/18/2017 Noted Allergy Reaction GOOSE FEATHERS ALLERGENIC EXTRACT 11/08/2016 16 - Unknown ZYPREXA (OLANZAPINE) 11/08/2016 16 - Unknown Date Reviewed: 08/04/2017 Reviewed by: Deirdre Love (Rn), RN - Fully Assessed Reason for Visit: Nurse Visit [792] B-12 Injection [247] Primary Visit Diagnosis:Vitamin D deficiency [E55.9] Prescriptions as of 08/18/2017 Sig: CYANOCOBALAMIN (VIT B-12) 1,0* Patient has been identified b* AMANTADINE HCL 100 MG TABLET Take 100 mg by mouth twice da* ZIPRASIDONE 80 MG CAPSULE Take 80 mg by mouth once priyanka* VITAMIN D3 1,000 UNIT TABLET Take 1,000 Units by mouth onc* DONEPEZIL 23 MG TABLET Take 1 tablet by mouth daily * Problem List As Of Date: 08/18/2017 (None) Visit Notes: >> Kendal Cabrales (Madeline) Mon August 18, 2017 10:48 AM Status: Signed Patient has been identified by name and date of : Yes Sherita is here for an injection of Vitamin B12 Dose: 1 ml Route: Intramuscular Given without incident. Site: left deltoid Exhaust Equipment Operator: somerset Lot #: [id number] [facility] #: [id number] Expiration Date: 02/2019 Chani Gregory present in clinic at time of injection. The date due for the next injection is 08/19/17. Kendal Cabrales CMA Level of Service: OFFICE VISIT NO CHARGE WITH PROCEDURE [[id number]] LOS history recorded Follow-up and Disposition History Recorded Encounter Status:Closed by KENDAL CABRALES on 08/19/17 CNNURSE Observed: 08/15/2017 Status: COMPLETED Source: [place] 10:15 AM [facility] RE[facility] Nurse Visit (AGINTMLW) ADRIENSHERITA ([id number]) 1945 M Date Time Provider Department 08/15/17 10:15 AM NURSE EDGAR PACHECO AGINTMLW During your visit today, we recorded the following information about you: Temperature 97.3 degrees Referring Provider: SELF [200] Allergies As of Date: 08/15/2017 Noted Allergy Reaction GOOSE FEATHERS ALLERGENIC EXTRACT 11/08/2016 16 - Unknown ZYPREXA (OLANZAPINE) 11/08/2016 16 - Unknown Date Reviewed: 08/04/2017 Reviewed by: Deirdre (Rn) JOSE Love - Fully Assessed Reason for Visit: Nurse Visit [792] Cmt: B12 injection Primary Visit Diagnosis:Low serum vitamin B12 [R79.89] Prescriptions as of 08/15/2017 Sig: X CYANOCOBALAMIN (VIT B-12) 1,0* Patient has been identified b* X AMANTADINE HCL 100 MG TABLET Take 100 mg by mouth twice da* X ZIPRASIDONE 80 MG CAPSULE Take 80 mg by mouth once priyanka* VITAMIN D3 1,000 UNIT TABLET Take 1,000 Units by mouth onc* DONEPEZIL 23 MG TABLET Take 1 tablet by mouth daily * Problem List As Of Date: 08/15/2017 (None) Prescriptions ordered this encounter Disp Refills Start End CYANOCOBALAMIN (VIT B-12) 1,000 MCG/* 1 mL 0 08/15/2017 08/26/2017 Class: Print RX Sig: Patient has been identified by name and date of : Yes Sherita is here for an injection of Vitamin B12 Dose: 1ml Route: Intramuscular Given without incident. 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 Myrick present in clinic at time of injection. The date due for the next injection is 08/18/17. Brigid Villaseñor LPN Cosign accepted by MD GWEN, DAVID[[id number]] on 08/17/2017 4:02 PM Follow-up and Disposition History Recorded Encounter Status:Closed by BRIGID VILLASEÑOR LPN on 08/29/17 CNNURSE Observed: 08/14/2017 Status: COMPLETED Source: [place] 10:15 AM [facility] REPOSITORY Nurse Visit (AGINTMLW) SHERITA JURADO ([id number]) 1945 M Date Time Provider Department 08/14/17 10:15 AM NURSE EDGAR PACHECO AGINTMLW During your visit today, we recorded the following information about you: Deanne Jones CMA 08/14/2017 11:20 AM Signed Pt here for b12 injection. Administered without complication and pt dismissed. Deanne Jones CMA Referring Provider: SELF [200] Allergies As of Date: 08/14/2017 Noted Allergy Reaction GOOSE FEATHERS ALLERGENIC EXTRACT 11/08/2016 16 - Unknown ZYPREXA (OLANZAPINE) 11/08/2016 16 - Unknown Date Reviewed: 08/04/2017 Reviewed by: Deirdre (Rn) JOSE Love - Fully Assessed Reason for Visit: Nurse Visit [792] Primary Visit Diagnosis:B12 deficiency [E53.8] Prescriptions as of 08/14/2017 Sig: AMANTADINE HCL 100 MG TABLET Take 100 mg by mouth twice da* ZIPRASIDONE 80 MG CAPSULE Take 80 mg by mouth once priyanka* VITAMIN D3 1,000 UNIT TABLET Take 1,000 Units by mouth onc* DONEPEZIL 23 MG TABLET Take 1 tablet by mouth daily * Problem List As Of Date: 08/14/2017 (None) Visit Notes: >> Deanne ([facility]) [facility] August 14, 2017 11:16 AM Status: Signed Pt here for b12 injection. Administered without complication and pt dismissed. Deanne Jones CMA Encounter Status:Closed by DEANNE JONES on 08/14/17 PROGRESS Observed: 08/13/2017 Status: COMPLETED Source: [place] 4:51 PM [facility] [place] REPOSITORY HNO ID: [id number] Author: David Hidalgo Service: (none) Author Type: Physician Type: Progress Notes Filed: 08/13/2017 4:52 PM Note Text: Noted. CNNURSE Observed: 08/13/2017 Status: COMPLETED Source: [place] 10:15 AM [facility] REPOSITORY Nurse Visit (AGINTMLW) SHERITA JURADO ([id number]) 1945 M Date Time Provider Department 08/13/17 10:15 AM NURSE DEVANTEM KARLA PACHECO AGINTMLW During your visit today, we recorded the following information about you: Kendal Cabrales CMA 08/13/2017 10:55 AM Signed Patient has been identified by name and date of : Yes Sherita is here for an injection of Vitamin B12 Dose: 1 ml Route: Intramuscular Given without incident. Site: right deltoid Exhaust Equipment Operator: somerset [employer] Lot #: [id number] [facility] #: [id number] Expiration Date: 02/2019 Chani Colt present in clinic at time of injection. The date due for the next injection is August 14. Kendal Cabrales CMA Referring Provider: SELF [200] Allergies As of Date: 08/13/2017 Noted Allergy Reaction GOOSE FEATHERS ALLERGENIC EXTRACT 11/08/2016 16 - Unknown ZYPREXA (OLANZAPINE) 11/08/2016 16 - Unknown Date Reviewed: 08/04/2017 Reviewed by: Deirdre (Rn) JOSE Love - Fully Assessed Reason for Visit: Nurse Visit [792] B-12 Injection [247] Primary Visit Diagnosis:B12 deficiency [E53.8] Order(s):cyanocobalamin 1,000 mcg injectionDisp: Rfl: Prescriptions as of 08/13/2017 Sig: AMANTADINE HCL 100 MG TABLET Take 100 mg by mouth twice da* ZIPRASIDONE 80 MG CAPSULE Take 80 mg by mouth once priyanka* VITAMIN D3 1,000 UNIT TABLET Take 1,000 Units by mouth onc* DONEPEZIL 23 MG TABLET Take 1 tablet by mouth daily * Problem List As Of Date: 08/13/2017 (None) Visit Notes: >> Kendal ([facility]) Kim FriAugust 13, 2017 10:49 AM Status: Signed Patient has been identified by name and date of : Yes Sherita is here for an injection of Vitamin B12 Dose: 1 ml Route: Intramuscular Given without incident. Site: right deltoid Exhaust Equipment Operator: [employer] Lot #: [id number] [facility] #: [id number] Expiration Date: 02/2019 Chani Gregory present in clinic at time of injection. The date due for the next injection is August 14. Kendal Cabrales CMA Prescriptions ordered this encounter Disp Refills Start End CYANOCOBALAMIN (VIT B-12) 1,000 MCG/* 08/13/2017 08/20/2017 Route: INTRAMUSCULA Level of Service: EST PATIENT VISIT LEVEL 1 [47545] LOS history recorded Follow-up and Disposition History Recorded Encounter Status:Closed by KENDAL CABRALES on 08/13/17 ED NOTE Observed: 08/05/2017 Status: COMPLETED Source: [place] 3:48 AM [facility] [place] REPOSITORY HNO ID: [id number] Author: Cristobal SpencerRn) JOSE Melvin Service: Emergency Medicine Author Type: Registered Nurse Type: ED Notes Filed: 08/05/2017 3:59 AM Note Text: [facility] customer service representative here. ED NOTE Observed: 08/05/2017 Status: COMPLETED Source: [place] 3:23 AM [facility] REPOSITORY HNO ID: [id number] Author: Cristobal SpencerRn) JOSE Melvin Service: Emergency Medicine Author Type: Registered Nurse Type: ED Notes Filed: 08/05/2017 3:23 AM Note Text: [facility] has not arrived. I call them back. ETA is now and additional 20 minutes-per Mark. ED NOTE Observed: 08/05/2017 Status: COMPLETED Source: [place] 2:04 AM [facility] REPOSITORY HNO ID: [id number] Author: Cristobal Watts) Pfeister, RN Service: Emergency Medicine Author Type: Registered Nurse Type: ED Notes Filed: 08/05/2017 2:05 AM Note Text: Patient dresses self at this time without assistance. Aware of plans to go back to [facility]. Discharge instructions reviewed with him. Copy to be sent with him back to [facility] for staff. ED NOTE Observed: 08/05/2017 Status: COMPLETED Source: [place] 1:35 AM [facility] [place] REPOSITORY HNO ID: [id number] Author: Cristobal SpencerRn) JOSE Melvin Service: Emergency Medicine Author Type: Registered Nurse Type: ED Notes Filed: 08/05/2017 1:37 AM Note Text: [facility] called with request for ambulette. ETA is 60 minutes. ED NOTE Observed: 08/05/2017 Status: COMPLETED Source: [place] 1:27 AM [facility] REPOSITORY HNO ID: [id number] Author: Cristobal Melvin RN Service: Emergency Medicine Author Type: Registered Nurse Type: ED Notes Filed: 08/05/2017 1:43 AM Note Text: Diana Fofana calls in. I speak with her. She is given update and patient report. She does not agree with plan of care. States she will call in the morning and file a complaint with the hospital's director. Nursing supervisor properties with me at time of this call and is aware she is unhappy. Physician also with me during this call as well as admission discharge rn. I have explained to caller that [place] from [facility] has been consulted, [facility] pysch also was consulted, and two ER physicians have evaluated patient and feel patient can go to [facility] tonight and follow up with [facility] later this morning as an outpatient. Ms Fofana states she will not be able to pick the patient up nor will the staff member who is at [facility]. She okays [facility] ambulette for transport home. ED NOTE Observed: 08/05/2017 Status: COMPLETED Source: [place] 1:22 AM [facility] REPOSITORY HNO ID: [id number] Author: Cristobal SpencerRnJulio César Melvin RN Service: Emergency Medicine Author Type: Registered Nurse Type: ED Notes Filed: 08/05/2017 1:23 AM Note Text: [place] [employer] calls. States he did make contact with worker at [facility]. They cannot leave as they are there alone. They will be calling their digital marketing manager to get a plan of action to come and mixing picker tender patient. ED NOTE Observed: 08/05/2017 Status: COMPLETED Source: [place] 1:04 AM [facility] REPOSITORY HNO ID: [id number] Author: Cristobal SpencerRn) JOSE Melvin Service: Emergency Medicine Author Type: Registered Nurse Type: ED Notes Filed: 08/05/2017 1:06 AM Note Text: Multiple calls placed to [facility]. No answer. Message left earlier. No return call back. [facility] dispatcher called and request made to have [place] [employer] call us back. Will request [place] [employer] visit [facility] and see if they can get someone to call us. ED NOTE Observed: 08/05/2017 Status: COMPLETED Source: [place] 12:37 AM [facility] REPOSITORY HNO ID: [id number] Author: Cristobal SpencerRn) JOSE Melvin Service: Emergency Medicine Author Type: Registered Nurse Type: ED Notes Filed: 08/05/2017 12:37 AM Note Text: Again call [facility] without getting a live person to answer. No message left. ED NOTE Observed: 08/05/2017 Status: COMPLETED Source: [place] 12:13 AM [facility] REPOSITORY HNO ID: [id number] Author: Cristobal SpencerRn) JOSE Melvin Service: Emergency Medicine Author Type: Registered Nurse Type: ED Notes Filed: 08/05/2017 12:13 AM Note Text: Several calls placed to [facility]. Still getting answering machine. No further messages left. ED NOTE Observed: 08/05/2017 Status: COMPLETED Source: [place] 12:00 AM [facility] REPOSITORY HNO ID: [id number] Author: Cristobal SpencerRn) JOSE Melvin Service: Emergency Medicine Author Type: Registered Nurse Type: ED Notes Filed: 08/05/2017 12:01 AM Note Text: Attempt to call [facility]. Message left for staff to return my call. CNPMatteo Observed: 08/05/2017 Status: COMPLETED Source: [place] 12:00 AM [facility] REPOSITORY Telephone (AGINTMLW) SHERITA JURADO ([id number]) 1945 M Date Time Provider Department 08/05/17 DAVID HIDALGO During your visit today, we recorded the following information about you: Radha Fitch LPN 08/05/2017 3:46 PM Signed TC to [facility], spoke with Facility Director Marsha who states Pt. Is the same, is not same in his apartment, continues to wander, has an appointment with Dr. Holder on 08/06/17 to evaluate Pt. And current medications. Marsha also asked that I relay a message to the dockmaster, that she return her call regarding Pt. Being returned to the facility in the middle of the night. Voice mail left for Nga Jara, extention [phone]. JESUS Sherwood LPN 08/05/2017 5:16 PM Signed ----- Message from David Hidalgo sent at 08/05/2017 4:55 PM EDT ----- plz let pt know that Vit B12 level is low - will need to start replacement. Will order in separate encounter. Folate ok CMP ok, FLP ok, TSH ok, CBC ok. Thanks. Brigid Villaseñor LPN 08/05/2017 5:19 PM Signed Pt lives in a skilled nursing. Radha Crockett, his caregiver, was notified of his lab results and directives. He uses [facility]. JESUS Mosqueda MD 08/06/2017 4:48 PM Signed Are they able to do B12 I/m injections at the skilled nursing ? Brigid Villaseñor LPN 08/06/2017 5:10 PM Signed Per discussion, unable to administer injections at the skilled nursing. Brigid Villaseñor LPN Allergies As of Date: 08/05/2017 Noted Allergy Reaction GOOSE FEATHERS ALLERGENIC EXTRACT 11/08/2016 16 - Unknown ZYPREXA (OLANZAPINE) 11/08/2016 16 - Unknown Date Reviewed: 08/04/2017 Reviewed by: Deirdre (Rn) JOSE Love - Fully Assessed Reason for Visit: ER F/U [41] Cmt: Hallucinations Prescriptions as of 08/05/2017 Sig: AMANTADINE HCL 100 MG TABLET Take 100 mg by mouth twice da* ZIPRASIDONE 80 MG CAPSULE Take 80 mg by mouth once priyanka* VITAMIN D3 1,000 UNIT TABLET Take 1,000 Units by mouth onc* DONEPEZIL 23 MG TABLET Take 1 tablet by mouth daily * Problem List As Of Date: 08/05/2017 (None) Encounter Status:Closed by BRIGID VILLASEÑOR LPN on 08/06/17 ED NOTE Observed: 08/04/2017 Status: COMPLETED Source: [place] 11:31 PM [facility] REPOSITORY HNO ID: [id number] Author: Silva SpencerRn) JOSE Kennedy Service: Emergency Medicine Author Type: Registered Nurse Type: ED Notes Filed: 08/05/2017 1:33 AM Note Text: Spoke with [place] from [facility] further, pt was just seen by psych doctor on 08/02/17, she reports if pt is not homicidal or suicidal that there is no way they could get him admitted for psych reasons. Pt has scheduled appt with neuro in September or October, and has another appt with psych doctor in , but the skilled nursing can call [facility] anytime during Business hours and speak with case management or pt's nurse during those time. Updated Dr. Orourke on conversion with [place] and she agrees that pt is safe to return back to skilled nursing and f/u. ED NOTE Observed: 08/04/2017 Status: COMPLETED Source: [place] 11:22 PM [facility] REPOSITORY HNO ID: [id number] Author: Silva Watts) JOSE Kennedy Service: Emergency Medicine Author Type: Registered Nurse Type: ED Notes Filed: 08/04/2017 11:22 PM Note Text: [place] from [facility] called back and informed of need for their assistance. ED NOTE Observed: 08/04/2017 Status: COMPLETED Source: [place] 11:06 PM [facility] REPOSITORY HNO ID: [id number] Author: Silva SpencerRn) Marcia, RN Service: Emergency Medicine Author Type: Registered Nurse Type: ED Notes Filed: 08/04/2017 11:07 PM Note Text: [facility] paged to come and evaluate pt again since they referred pt to ED today for placement. ED NOTE Observed: 08/04/2017 Status: COMPLETED Source: [place] 11:02 PM [facility] [place] REPOSITORY HNO ID: [id number] Author: Silva Kennedy RN Service: Emergency Medicine Author Type: Registered Nurse Type: ED Notes Filed: 08/05/2017 1:32 AM Note Text: Spoke with Xiomara again from [facility] psych intake, she reports she needs more info to explain need for this pt to be admitted. Per Xiomara at [facility], pt does not meet requirements for admission to psych unit. ED NOTE Observed: 08/04/2017 Status: COMPLETED Source: [place] 10:16 PM [facility] [place] REPOSITORY HNO ID: [id number] Author: Cristobal Watts) JOSE Melvin Service: Emergency Medicine Author Type: Registered Nurse Type: ED Notes Filed: 08/04/2017 10:16 PM Note Text: Dietary tray served to patient. ED NOTE Observed: 08/04/2017 Status: COMPLETED Source: [place] 10:08 PM [facility] [place] REPOSITORY HNO ID: [id number] Author: Silva Kennedy RN Service: Emergency Medicine Author Type: Registered Nurse Type: ED Notes Filed: 08/04/2017 10:09 PM Note Text: Chart and paperwork faxed to [facility] psych intake, mikey Xiomara [phone] ED NOTE Observed: 08/04/2017 Status: COMPLETED Source: [place] 10:03 PM [facility] [place] REPOSITORY HNO ID: [id number] Author: Cristobal Watts) JOSE Melvin Service: Emergency Medicine Author Type: Registered Nurse Type: ED Notes Filed: 08/04/2017 10:03 PM Note Text: No needs at this time. ED NOTE Observed: 08/04/2017 Status: COMPLETED Source: [place] 9:33 PM [facility] [place] REPOSITORY HNO ID: [id number] Author: Silva Kennedy RN Service: Emergency Medicine Author Type: Registered Nurse Type: ED Notes Filed: 08/04/2017 10:08 PM Note Text: Spoke with Xiomara at [facility] psych intake URINALYSIS ROUTINE Collected: 08/04/2017 Status: F Source: [facility] 9:00 PM HEALTH SYSTEM REPOSITORY TYPE CODE TESTS RESULT OUT OF RANGE REFERENCE UNITS LAB LCOLR(LOIN C) Urine Color DARK YELLOW LAB LAPPU(LOIN C) Urine Appearance 2+ (SLT CLOUDY) LAB LGLUR(LOIN Negative C) Glucose Urine NEGATIVE LAB LKETO(LOIN Negative C) Abnormal Ketone Urine TRACE LAB LHGBU(LOIN Negative C) Hemoglobin,Urin NEGATIVE e LAB LPRTU(LOIN Negative C) Abnormal Protein Urine 1+ LAB LNITR(LOIN Negative C) Nitrites Urine NEGATIVE LAB LBILU(LOIN Negative C) Bilirubin Urine see below Result Comment: Detected (Unable to confirm). LAB LSPG(LOINC) 1.005-1.030 Specific >=1.030 [place], Ur LAB LPHUR(LOINC) 5.0-8.0 pH,Urine 7.0 LAB LUROB(LOINC) 0.0-1.0 EU/d High L Urobilinogen,Ur 2.0 LAB LLEUK(LOINC) Negative Leukocytes NEGATIVE Esterase LAB LWBCU(LOINC) 0-5 /hpf WBC, Urine 1-3 LAB LRBCU(LOINC) 0-3 /hpf RBC,Urine NONE LAB LEPIT(LOINC) 0-5 /hpf Ep Cells Urine 0-2 LAB LBACT(LOINC) None Abnormal Bacteria Urine FEW LAB LMUCU(LOINC) None Mucus Threads FEW LAB LHYCA(LOINC) None /lpf Abnormal Hyaline Cast 0-1 LAB LAMUR(LOINC) None Abnormal Amorphous FEW Urates Performed By: #### ELISSARIN #### [place] [address] URINE DRUG SCREEN Collected: 08/04/2017 Status: F Source: [facility] 9:00 PM HEALTH SYSTEM REPOSITORY TYPE CODE TESTS RESULT OUT OF REFERENCE UNITS RANGE LAB LUAMP(LOIN Non-Detected C) Urine Amphetamine Non-Detecte d LAB LUBAR(LOIN Non-Detected C) Urine Barbiturates Non-Detecte d LAB LUBNZ(LOIN Non-Detected C) Urine Benzodiazepine Non-Detecte d LAB LUCOC(LOIN Non-Detected C) Urine Cocaine Non-Detecte d LAB LUMMP(LOIN Non-Detected C) Urine Methamphetamine Non-Detecte d LAB LUMTD(LOIN Non-Detected C) Urine Methadone Non-Detecte d LAB LUOPI(LOIN Non-Detected C) Urine Opiate Non-Detecte d LAB LUPCP(LOIN Non-Detected C) Urine PCP Non-Detecte d LAB LUOXY(LOIN Non-Detected C) Urine Oxycodone Non-Detecte d LAB LUPPX(LOIN Non-Detected C) Urine Propoxyphene Non-Detecte d LAB LUTCA(LOIN Non-Detected C) Urine Tricyclics Non-Detecte d LAB LTHCU(LOIN Non-Detected C) Urine THC Non-Detecte d LAB LUBUP(LOIN Non-Detected C) Urine Buprenorphine Non-Detecte d Result Comment: Urine Drug Cutoff Levels Urine Amphetamine 500 ng/mL Urine Barbituate 200 ng/mL Urine Benzodiazepines 150 ng/mL Urine Cocaine 150 ng/mL Urine Methamphetamines 500 ng/mL Urine Methadone 200 ng/mL Urine Opiates 100 ng/mL Urine Oxycodone 100 ng/mL Urine Phencyclidine (PCP) 25 ng/mL Urine Propoxyphene 300 ng/mL Urine Tricyclics 300 ng/mL Urine THC 50 ng/mL Urine Buprenorphine 10 ng/mL The results of these analytes are unconfirmed and reported qualitatively as detected or non-detected relative to the cutoff value. Detected results indicate the sample is likely to contain the analyte. Non-detected results indicate that either the sample does not contain the analyte or it is present in concentrations below the cutoff level. This drug screen should be used for medical diagnostic purposes only. Testing Performed at: [place] [address] Performed By: #### LUDR2 #### [place] [address] ED NOTE Observed: 08/04/2017 Status: COMPLETED Source: [facility] 8:25 PM [facility] [place] REPOSITORY HNO ID: [id number] Author: Cristobal SpencerRn) JOSE Melvin Service: Emergency Medicine Author Type: Registered Nurse Type: ED Notes Filed: 08/04/2017 8:56 PM Note Text: Patient misses urinal and voids on self and floor. Physician aware. Patient cleansed and gown changed. ED NOTE Observed: 08/04/2017 Status: COMPLETED Source: [facility] 7:35 PM [facility] REPOSITORY HNO ID: [id number] Author: Cristobal Watts) JOSE Melvin Service: Emergency Medicine Author Type: Registered Nurse Type: ED Notes Filed: 08/04/2017 7:56 PM Note Text: Encouraged for UA. Attempts to void while standing. Unable to void. ED NOTE Observed: 08/04/2017 Status: COMPLETED Source: [facility] 6:45 PM [facility] [place] REPOSITORY HNO ID: [id number] Author: Deirdre (Rn) JOSE Love Service: Emergency Medicine Author Type: Registered Nurse Type: ED Notes Filed: 08/04/2017 6:45 PM Note Text: Xray at bedside for portable cxr CHEST 1 VIEW Observed: 08/04/2017 Status: F Source: [facility] 6:41 PM HEALTH SYSTEM REPOSITORY Performed at [facility] APPROVED BY: Bhavik Erazo MD EXAM TITLE: CHEST 1 VIEW DATE: 08/04/2017 17:57 COMPARISON: None. CLINICAL INDICATION/HISTORY: Confusion TECHNIQUE: AP upright portable chest FINDINGS: The lungs are clear without consolidation or pleural effusion. Normal cardiac size. No acute bony abnormality. IMPRESSION: No acute process. ED PROV NOTE Observed: 08/04/2017 Status: COMPLETED Source: [facility] 6:24 PM [facility] REPOSITORY HNO ID: [id number] Author: Sharlene Orourke MD Service: Emergency Medicine Author Type: Physician Type: ED Provider Notes Filed: 08/05/2017 1:51 AM Note Text: ED Provider Note Patient Name: Sherita Jurado SERVICE DATE: 08/04/17 History Patient presents with: Psychiatric Problem HPI Comments: Patient presents with hallucinations and tremors. Per caregiver, the patient's was on Risperdal and was taken off that because of the tremors, this was done in May. The tremors have worsened. Caregiver states that the patient has been walking away from his apartment at times. She also notes that his conversations have been hypersexual lysed. She states that he is hallucinating that there is a woman that was going to have sex with him. She is concerned that he is going to walk away and not be able to be found. Patient is a 71 year old male presenting with mental health disorder. 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 Relieved by: Nothing Worsened by: Nothing Ineffective treatments: change in medication. Associated symptoms: no abdominal pain, no chest pain and no headaches Associated symptoms comment: Tremors/shaking Risk factors: hx of mental illness PAST MEDICAL HISTORY Diagnosis Date - Actinic keratosis - Breast lump LT breast; cavernous hemangioma/excised - Dizziness - Epidermoid cyst of skin - Lipoma of skin forearms and abdomen - Mammogram abnormal suspicious of cancer- referral made - Obesity - On upper doubler drug therapy - Palpitations - Schizophrenia (HCC) - Tremor - Vitamin D deficiency PAST SURGICAL HISTORY Procedure Laterality Date - NONE FAMILY HISTORY Problem Relation Age of Onset - Family history unknown: Yes Social History Social History Main Topics - Smoking status: Former Smoker - Smokeless tobacco: Never Used - Alcohol use No - Drug use: No - Sexual activity: Not Asked ALLERGIES Allergen Reactions - Goose Feathers Allen* Unknown - Zyprexa [Olanzapine] Unknown Review of Systems Constitutional: Negative for chills and fever. HENT: Negative for sore throat and trouble swallowing. Respiratory: Negative for cough and shortness of breath. Cardiovascular: Negative for chest pain and leg swelling. Gastrointestinal: Negative for abdominal pain, diarrhea and vomiting. Genitourinary: Negative for dysuria and flank pain. Musculoskeletal: Negative for back pain and neck pain. Skin: Negative for rash and wound. Neurological: Positive for tremors. Negative for syncope and headaches. Psychiatric/Behavioral: Positive for hallucinations. Negative for homicidal ideas and suicidal ideas. Physical Exam BP 131/96 Pulse 73 Temp (Src) 98.9 (Temporal Artery) Resp 16 Ht 5' 10 (1.78m) Wt 188 lb (85.3kg) SpO2 98% BMI 26.98 kg/(m2). Physical Exam Constitutional: He is oriented to person, place, and time. He appears well-developed and well-nourished. No distress. HENT: Head: Normocephalic and atraumatic. Mouth/Throat: Oropharynx is clear and moist. Eyes: EOM are normal. Pupils are equal, round, and reactive to light. Right eye exhibits no discharge. Left eye exhibits no discharge. Right conjunctiva is not injected. Right conjunctiva has no hemorrhage. Left conjunctiva is not injected. Left conjunctiva has a hemorrhage (subconjunctival hemorrhage (just had injection in his eye)). No scleral icterus. Neck: Normal range of motion. No JVD present. Cardiovascular: Normal rate, regular rhythm and intact distal pulses. Pulmonary/Chest: Effort normal and breath sounds normal. No stridor. No respiratory distress. Abdominal: Soft. Bowel sounds are normal. He exhibits no distension. There is no tenderness. Neurological: He is alert and oriented to person, place, and time. No cranial nerve deficit or sensory deficit. He exhibits normal muscle tone. GCS eye subscore is 4. GCS verbal subscore is 5. GCS motor subscore is 6. Skin: Skin is warm and dry. No rash noted. No erythema. Psychiatric: His affect is blunt. He is slowed. Nursing note and vitals reviewed. Diagnostic Testing ED Labs Ordered and Reviewed COMPREHENSIVE METABOLIC PANEL (AK,AV,EU,FV,HL,ELISSA,MM,SP) - Abnormal; Notable for the following: Result Value Ref Range Glucose 169 (*) 70 - 99 mg/dL Protein, Total 9.0 (*) 6.4 - 8.2 g/dL Bilirubin, Total 1.1 (*) 0.2 - 1.0 mg/dL All other components within normal limits CBC + AUTO DIFF (AK,AV,EU,FV,HL,ELISSA,MM,SP) - Abnormal; Notable for the following: MCV 97.1 (*) 80.0 - 94.0 fl MCH 33.0 (*) 27.0 - 31.0 pg Seg. Neut. # 6.49 (*) 3.00 - 5.67 thou/cmm Lymphocyte # 0.92 (*) 1.50 - 3.65 thou/cmm All other components within normal limits ACETAMINOPHEN / TYLENOL (AK,AV,EU,FV,HL,ELISSA,MM,SP) - Abnormal; Notable for the following: Acetaminophen <1 (*) 10 - 30 mg/L All other components within normal limits URINALYSIS WITH MICROSCOPIC (EU,FV,HL,ELISSA,MM,SP) - Abnormal; Notable for the following: Ketones, Urine TRACE (*) Negative Protein, Urine 1+ (*) Negative Urobilinogen, Urine 2.0 (*) 0.0 - 1.0 EU/dL Bacteria Urine (Manual) FEW (*) None Hyaline Cast 0-1 (*) None /lpf Amorphous Urates FEW (*) None All other components within normal limits TROPONIN I (AK) MEDTOX SCREEN, URINE (AK) ALCOHOL / ETHANOL BLOOD (AK,AV,EU,FV,HL,ELISSA,MM,SP) SALICYLATE BLOOD (AK,AV,EU,FV,HL,ELISSA,MM,SP) MDRD GFR Procedures Medical Decision Making / ED Course ED Course patient brought in for psych eval. he has been cooperative, answers questions appropriately. Concern is for his hallucinations and concern that he is randomly walking off. Patient has been seen by [facility] and they were contacted and requested the patient be admitted for further evaluation. Labs are been ordered. Patient agrees with admission and further evaluation. Encounter Diagnosis ICD-10-CM 1. Hallucinations R44.3 Plan The Patient was TRANSFERRED back to his skilled nursing Condition at time of disposition: stable SIGNATURE: Shadia Cooper DO EKG Interpretation: RHYTHM: Normal sinus rhythm at 82 beats per minute AXIS: Normal axis INTERVALS: Normal ND interval QRS COMPLEX: Normal ST SEGMENT: Normal ST-T segments QT INTERVAL: Normal COMPARED WITH PRIOR: unchanged Labs reviewed and stable as is chest xray. Forms for transfer completed. Patient was here and cooperative and quiet for the entire visit. He did not wander. After several attempts to have him placed, we again discussed him with [facility]. He has a counseling case manager, and the skilled nursing has options for contacting a nurse or his counseling case manager that they did not exercise. At this time he does not meet the criteria for admission and will be returned to his skilled nursing. They are to follow up. At 0145 the patient is calm and cooperative, pleasantly demented. Sharlene Orourke MD 08/05/17 0151 HEMOGRAM/DIFF Collected: 08/04/2017 Status: F Source: [facility] 6:04 PM HEALTH SYSTEM REPOSITORY TYPE CODE TESTS RESULT OUT OF REFERENCE UNITS RANGE LAB LWBC(LOINC 4.8-10.8 thou/cmm ) WBC 7.9 LAB LRBC(LOINC 4.60-6.20 mil/cmm ) RBC 5.09 LAB LHGB(LOINC 14.0-18.0 g/dL ) Hgb 16.8 LAB LHCT(LOINC 42.0-52.0 % ) Hct 49.4 LAB LMCV(LOINC 80.0-94.0 fl ) MCV High 97.1 LAB LMCH(LOINC 27.0-31.0 pg ) MCH High 33.0 LAB LMCHC(LOIN 32.0-36.0 % C) MCHC 34.0 LAB LRDW(LOINC 11.5-15.9 % ) RDW 12.2 LAB LPLT(LOINC 150-400 thou/cmm ) Platelet 251 LAB LMPV(LOINC 7.1-10.5 fl ) MPV 10.1 LAB LSEGT(LOIN % C) Seg Neutrophil 82.1 LAB LLYMP(LOIN % C) Lymphocyte 11.7 LAB LMNO(LOINC % ) Monocyte 5.3 LAB ABRAM(LOINC % ) Eosinophil 0.6 LAB LBASO(LOIN % C) Basophil 0.3 LAB LSEGN(LOIN 3.00-5.67 thou/cmm C) Abs. High Neut 6.49 LAB LLYMN(LOIN 1.50-3.65 thou/cmm C) Low Abs. Lymph 0.92 LAB LMONN(LOIN 0.20-1.00 thou/cmm C) Abs. Ceiba 0.42 LAB LEOSN(LOIN 0.00-0.41 thou/cmm C) Abs. Eosin 0.05 LAB LBASN(LOIN 0.00-0.08 thou/cmm C) Abs. Baso 0.02 Performed By: #### LCBCD #### [place] [address] TROPONIN I Collected: 08/04/2017 Status: F Source: [address] [facility] REPOSITORY TYPE CODE TESTS RESULT OUT OF REFERENCE UNITS RANGE LAB LTRP(LOINC) <=0.07 ng/mL Troponin I <0.03 Performed By: #### LTRP #### [place] [address] SALICYLATE Collected: 08/04/2017 Status: F Source: [address] [facility] REPOSITORY TYPE CODE TESTS RESULT OUT OF REFERENCE UNITS RANGE LAB LSAL(LOINC 2.8-20.0 mg/dL ) Salicylate <2.8 Performed By: #### LSAL #### [facility] [address] [place] [address] COMPREHENSIVE PANEL Collected: 08/04/2017 Status: F Source: [facility] 6:04 PM HEALTH SYSTEM REPOSITORY TYPE CODE TESTS RESULT OUT OF REFERENCE UNITS RANGE LAB AIR CARGO AGENT(LOINC) 136-145 mEq/L Sodium Blood 139 LAB LK(LOINC) 3.5-5.1 mEq/L Potassium Blood 4.0 LAB LCL(LOINC) 98-107 mEq/L Chloride Blood 105 LAB LCO2(LOINC 21-32 mEq/L ) CO2 Blood 29 LAB LGLU(LOINC 70-99 mg/dL ) Glucose High Blood 169 LAB LBUN(LOINC 7-25 mg/dL ) BUN Blood 18 LAB LCREA(LOIN 0.67-1.17 mg/dL C) Creatinine Blood 0.91 LAB LCA(LOINC) 8.5-10.1 mg/dL Calcium Blood 9.7 LAB LALB(LOINC 3.4-5.0 g/dL ) Albumin Blood 3.8 LAB LTP(LOINC) 6.4-8.2 g/dL Total High Protein 9.0 LAB LAST(LOINC 15-37 U/L ) AST-SGOT Blood 17 LAB LALT(LOINC 14-63 U/L ) ALT-SGPT Blood 27 LAB LALKP(LOIN 46-116 U/L C) Alk Phosphatase 85 LAB LBILT(LOIN 0.2-1.0 mg/dL C) Total High Bilirubin 1.1 LAB LANGP(LOIN 8-20 C) Anion Gap 9 LAB LBNCR(LOIN 10-20 C) BUN/Creatinine 20 Ratio Performed By: #### LP14 #### [place] [address] ALCOHOL, BLOOD Collected: 08/04/2017 Status: F Source: [facility] 6:04 PM HEALTH SYSTEM REPOSITORY TYPE CODE TESTS RESULT OUT OF RANGE REFERENCE UNITS LAB LALC3(LOINC <10 mg/dL ) Alcohol, <10 Blood Performed By: #### LALC3 #### [place] [address] ACETAMINOPHEN Collected: 08/04/2017 Status: F Source: [facility] 6:04 PM HEALTH SYSTEM REPOSITORY TYPE CODE TESTS RESULT OUT OF REFERENCE UNITS RANGE LAB LACTM(LOIN 10-30 mg/L C) Acetaminophen Low <1 Performed By: #### LACTM #### [facility] [address] [place] [address] MDRD EGFR Collected: 08/04/2017 Status: F Source: [facility] 6:04 PM HEALTH SYSTEM REPOSITORY TYPE CODE TESTS RESULT OUT OF RANGE REFERENCE UNITS LAB LGFRF(LOINC >60mL/min/1.73m ) 2 eGFR >60 Result Comment: If the patient is , multiply the result by 1.210. Performed By: #### LGFR #### [facility] [address] [place] [address] ED NOTE Observed: 08/04/2017 Status: COMPLETED Source: [facility] 5:53 PM [facility] REPOSITORY HNO ID: [id number] Author: Deirdre (Rn) JOSE Love Service: Emergency Medicine Author Type: Registered Nurse Type: ED Notes Filed: 08/04/2017 5:54 PM Note Text: Dr Rodrigues at bedside with pt ED NOTE Observed: 08/04/2017 Status: COMPLETED Source: [facility] 5:48 PM [facility] REPOSITORY HNO ID: [id number] Author: Deirdre (Rn) JOSE Love Service: Emergency Medicine Author Type: Registered Nurse Type: ED Notes Filed: 08/04/2017 5:50 PM Note Text: Pt has been acting abnormally for the past 3 months. Worsening and spoke with AP who felt he needed to be seen in ED CT HEAD W/O CONTRAST Observed: 07/30/2017 Status: F Source: [facility] 8:30 AM HEALTH SYSTEM REPOSITORY Performed at [facility] APPROVED BY: Janes Wing MD Addendum Begins * * * * * * * * ORIGINAL REPORT * * * * * * * * EXAMINATION: CT HEAD W/O CONTRAST HISTORY: Dementia, unsteady gait x2 weeks TECHNIQUE: Serial axial and coronal images without IV contrast were obtained from the vertex to the foramen magnum. MQ: CTBWO_3 CT Dose-Length Product (DLP): 882mGy*cm CT Dose Reduction Employed: 5 COMPARISON: None. RESULT: Post-operative change: None. Acute change: No evidence of an acute infarct or other acute parenchymal process. Hemorrhage: No evidence of acute intracranial hemorrhage. Mass Lesion / Mass Effect: There is no evidence of an intracranial mass or extraaxial fluid collection. No significant mass effect. Chronic change: None apparent. Parenchyma: There is no significant volume loss. The brain parenchyma is otherwise within normal limits for age. Ventricles: The ventricles are within normal limits of size and configuration for age. Paranasal sinuses and skull base: The visualized paranasal sinuses are grossly clear. The skull base and imaged soft tissues are unremarkable. IMPRESSION: 1. No evidence of acute intracranial abnormality. * * * * * * * * ADDENDUM #1 * * * * * * * * Impression:CT Dose-Length Product (DLP): 882mGy*cm CT Dose Reduction Employed: 5-no dose reduction technique was required Addendum Ends EXAMINATION: CT HEAD W/O CONTRAST HISTORY: Dementia, unsteady gait x2 weeks TECHNIQUE: Serial axial and coronal images without IV contrast were obtained from the vertex to the foramen magnum. MQ: CTBWO_3 CT Dose-Length Product (DLP): 882mGy*cm CT Dose Reduction Employed: 5 COMPARISON: None. RESULT: Post-operative change: None. Acute change: No evidence of an acute infarct or other acute parenchymal process. Hemorrhage: No evidence of acute intracranial hemorrhage. Mass Lesion / Mass Effect: There is no evidence of an intracranial mass or extraaxial fluid collection. No significant mass effect. Chronic change: None apparent. Parenchyma: There is no significant volume loss. The brain parenchyma is otherwise within normal limits for age. Ventricles: The ventricles are within normal limits of size and configuration for age. Paranasal sinuses and skull base: The visualized paranasal sinuses are grossly clear. The skull base and imaged soft tissues are unremarkable. IMPRESSION: 1. No evidence of acute intracranial abnormality. HEMOGRAM Collected: 07/30/2017 Status: F Source: [facility] 8:05 AM HEALTH SYSTEM REPOSITORY TYPE CODE TESTS RESULT OUT OF REFERENCE UNITS RANGE LAB LWBC(LOINC) 4.8-10.8 thou/cmm WBC 6.8 LAB LRBC(LOINC) 4.60-6.20 mil/cmm RBC 5.07 LAB LHGB(LOINC) 14.0-18.0 g/dL Hgb 16.7 LAB LHCT(LOINC) 42.0-52.0 % Hct 49.2 LAB LMCV(LOINC) 80.0-94.0 fl High MCV 97.0 LAB LMCH(LOINC) 27.0-31.0 pg High MCH 32.9 LAB LMCHC(LOINC 32.0-36.0 % ) MCHC 33.9 LAB LRDW(LOINC) 11.5-15.9 % RDW 12.5 LAB LPLT(LOINC) 150-400 thou/cmm Platelet 221 LAB LMPV(LOINC) 7.1-10.5 fl MPV 10.0 Performed By: #### LCBC #### [facility] [address] [place] [address] COMPREHENSIVE PANEL Collected: 07/30/2017 Status: F Source: [facility] 8:05 HEALTH SYSTEM REPOSITORY TYPE CODE TESTS RESULT OUT OF REFERENCE UNITS RANGE LAB AIR CARGO AGENT(LOINC) 136-145 mEq/L Sodium Blood 137 LAB LK(LOINC) 3.5-5.1 mEq/L Potassium Blood 3.8 LAB LCL(LOINC) 98-107 mEq/L Chloride Blood 104 LAB LCO2(LOINC 21-32 mEq/L ) CO2 Blood 31 LAB LGLU(LOINC 70-99 mg/dL ) Glucose High Blood 102 LAB LBUN(LOINC 7-25 mg/dL ) BUN Blood 15 LAB LCREA(LOIN 0.67-1.17 mg/dL C) Creatinine Blood 0.81 LAB LCA(LOINC) 8.5-10.1 mg/dL Calcium Blood 9.4 LAB LALB(LOINC 3.4-5.0 g/dL ) Albumin Blood 3.8 LAB LTP(LOINC) 6.4-8.2 g/dL Total High Protein 8.8 LAB LAST(LOINC 15-37 U/L ) AST-SGOT Blood 18 LAB LALT(LOINC 14-63 U/L ) ALT-SGPT Blood 32 LAB LALKP(LOIN 46-116 U/L C) Alk Phosphatase 80 LAB LBILT(LOIN 0.2-1.0 mg/dL C) Total Bilirubin 0.9 LAB LANGP(LOIN 8-20 C) Low Anion Gap 6 LAB LBNCR(LOIN 10-20 C) BUN/Creatinine 19 Ratio Performed By: #### LP14 #### [facility] [address] [place] [address] LIPID PROFILE Collected: 07/30/2017 Status: F Source: [facility] 8:[facility] REPOSITORY TYPE CODE TESTS RESULT OUT OF REFERENCE UNITS RANGE LAB LCHOL(LOIN 0-199 mg/dL C) Cholesterol Blood 176 LAB LTRIG(LOIN 0-149 mg/dL C) Triglyceride Blood 100 LAB LHDL2(LOIN >40 mg/dL C) HDL Cholesterol 46 LAB LLDL(LOINC 0-150 mg/dL ) LDL 110 LAB LCHHD(LOIN 2.1-7.3 C) CHOL/HDL 3.8 LAB LRISK(LOIN C) Risk Factor 3.8 Result Comment: Cardiac Risk Factor The CHD risk factor is based on the total Chol/HDL ratio. Other factors affect CHD risk such as hypertension, smoking, diabetes, severe obesity and premature CHD. Cardiac Risk Total Chol/HDL ratio Men Women 1/2 avg risk 3.4-4.9 3.3-6.3 Avg risk 5.0-9.5 6.4-7.0 2x avg risk 9.6-23.3 7.1-10.9 3x avg risk >23.4 >11.0 Performed By: #### LLIPD #### [place] [address] TSH REFLEX (LODI) Collected: 07/30/2017 Status: F Source: [facility] 8:[facility] REPOSITORY TYPE CODE TESTS RESULT OUT OF REFERENCE UNITS RANGE LAB LTSHR(LOINC 0.34-4.82 uIU/mL ) TSH reflex 2.20 ([place]) Result Comment: Free T4 reflexed if TSH is less than or greater than the reference range. Performed By: #### LTSHR #### [place] [address] MDRD EGFR Collected: 07/30/2017 Status: F Source: [place] [id number]:[facility] REPOSITORY TYPE CODE TESTS RESULT OUT OF RANGE REFERENCE UNITS LAB LGFRF(LOINC >60mL/min/1.73m ) 2 eGFR >60 Result Comment: If the patient is , multiply the result by 1.210. Performed By: #### LGFR #### [facility] [address] [place] [address] VITAMIN B12 Collected: 07/30/2017 Status: F Source: [facility] 8:05 AM HEALTH SYSTEM REPOSITORY TYPE CODE TESTS RESULT OUT OF REFERENCE UNITS RANGE LAB B12(LOINC) 193-986 pg/mL Low Vitamin B12 177 Performed By: #### B12 #### [facility] [address] [place] [address] FOLATE Collected: 07/30/2017 Status: F Source: [facility] 8:05 AM HEALTH SYSTEM REPOSITORY TYPE CODE TESTS RESULT OUT OF REFERENCE UNITS RANGE LAB FOL(LOINC) 3.10-17.50 ng/mL Folate 7.00 Performed By: #### FOL #### [place] [address] PROGRESS Observed: 07/24/2017 Status: COMPLETED Source: [facility] 2:09 PM [facility] REPOSITORY HNO ID: [id number] Author: David Hidalgo Service: (none) Author Type: Physician Type: Progress Notes Filed: 07/27/2017 7:19 PM Note Text: Subjective: Sherita Jurado is a 71 year old White male, Patient presents with: Tremor: needs neurology referral . HPI Patient here with caregiver from his skilled nursing. Has been having tremors X yrs, but few months its worse. Was referred to Neuro last year but pt never followed through. Is here today to get a new referral. No - Dysphagia. Some constipation but per caregiver pt never mentioned that at the skilled nursing. + drooling Unsteady gait for a while, gradually worsening over time. S/p Fall - 07/14/17 but no injuries. + memory issues. But also has h/o schizo, sees psych, risperdal stopped 05/20/17 for concern for S/E. Recently was started on geodon. Also started on amantadine by psych. Wt loss - 209 (02/14/17) to 193 ( 07/18/17). D/t tremors he has been having difficulty eating as food falls off the spoon. At the skilled nursing staff is not allowed to assist with feeding. H/o schizophrenia , has a guardian - 10+yrs at skilled nursing. PAST MEDICAL HISTORY Diagnosis Date - Actinic keratosis - Breast lump LT breast; cavernous hemangioma/excised - Dizziness - Epidermoid cyst of skin - Lipoma of skin forearms and abdomen - Mammogram abnormal suspicious of cancer- referral made - Obesity - On retirement drug therapy - Palpitations - Schizophrenia (HCC) - Tremor - Vitamin D deficiency PAST SURGICAL HISTORY Procedure Laterality Date - NONE Social History Substance Use Topics - Smoking status: Former Smoker - Smokeless tobacco: Never Used - Alcohol use No Family history reviewed. ALLERGIES Allergen Reactions - Goose Feathers Allen* Unknown - Zyprexa [Olanzapine] Unknown Current Outpatient Prescriptions: amantadine HCl (SYMMETREL) 100 mg tablet Take 100 mg by mouth twice daily. ziprasidone (GEODON) 80 mg capsule Take 80 mg by mouth twice daily with meals. VITAMIN D 1,000 unit tab tablet Take 1,000 Units by mouth once daily. Donepezil 23 mg tab Take 1 tablet by mouth daily at bedtime. FLAXSEED OIL (OMEGA 3 ORAL) Take by mouth. benztropine (COGENTIN) 1 mg tablet 1 tablet by mouth 2 times day RISPERDAL CONSTA 25 mg/2 mL injection Multivitamin capsule Take 1 capsule by mouth once daily. No current facility-administered medications for this visit. Review of Systems Constitutional: Negative for chills, fever and malaise/fatigue. HENT: Negative for congestion, ear pain and sore throat. Eyes: Negative for blurred vision. Respiratory: Negative for cough, shortness of breath and wheezing. Cardiovascular: Negative for chest pain, orthopnea and leg swelling. Gastrointestinal: Negative for abdominal pain, diarrhea, heartburn, nausea and vomiting. Genitourinary: Negative for dysuria. Skin: Negative for rash. Neurological: Negative for dizziness, tingling, sensory change, focal weakness and headaches. BP 100/64 Pulse 66 Temp (Src) 97.6 (Oral) Ht 5' 9.25 (1.76m) Wt 188 lb 3.2 oz (85.4kg) BMI 27.59 kg/(m2). Physical Exam Constitutional: He is well-developed, well-nourished, and in no distress. No distress. HENT: Head: Normocephalic. Eyes: Conjunctivae are normal. Right eye exhibits no discharge. Left eye exhibits no discharge. Cardiovascular: Normal rate, regular rhythm, normal heart sounds and intact distal pulses. No murmur heard. Pulmonary/Chest: Effort normal and breath sounds normal. No respiratory distress. He has no wheezes. Abdominal: Soft. Bowel sounds are normal. He exhibits no distension. There is no tenderness. Musculoskeletal: Edema: no LE edema. Neurological: He is alert. Skin: Skin is warm and dry. Psychiatric: Mood normal. b/l UE - resting tremor, increases with intended movement. Strength b/l UE/LE 4+/5 Sensation intact b/l UE/LE to touch/ pain. No rigidity Coordination intact legs Unable to walk in a straight line ASSESSMENT/PLAN: 1. Coarse tremors - ICD9: 781.0, ICD10: G25.2 (primary diagnosis) ? Parkinson's - CONSULT TO NEUROLOGY 2. Unsteady gait - ICD9: 781.2, ICD10: R26.81 ? D/t parkinson's, though will r/o other etio - CONSULT TO NEUROLOGY - pt requesting Dr. reyes - CT BRAIN WO IVCON - VITAMIN B12 BLOOD - FOLATE SERUM 3. Weight loss - ICD9: 783.21, ICD10: R63.4 ? etio - poor po intake - r/o other metabolin issues - check CBC, CMP - declined colonoscopy in the past and now. 4. Screening for lipid disorders - ICD9: V77.91, ICD10: Z13.220 - LIPID PANEL BASIC 5. Screening for deficiency anemia - ICD9: V78.1, ICD10: Z13.0 - CBC 6. Screening for diabetes mellitus - ICD9: V77.1, ICD10: Z13.1 - COMP METABOLIC PANEL Refusing vaccines as well. Discussed above plan with patient. Pt agreeable with above plan. David Hidalgo MD This note was partially generated using [employer] voice recognition system, and there may be some incorrect words, spellings, and punctuation that were not noted in checking the note before saving. CNOV Observed: 07/24/2017 Status: COMPLETED Source: [place] 2:00 PM [facility] [place] REPOSITORY Office Visit (AGINTMLW) SHERITA JURADO ([id number]) 1945 M Date Time Provider Department 07/24/17 2:00 PM DAVID HIDALGO During your visit today, we recorded the following information about you: Temperature Pulse Blood pressure Weight 97.6 degrees 66/minute 100/64 85.4 kg Height 1.759 m Brigid Villaseñor LPN 07/24/2017 2:07 PM Signed Pt presents today for referral to neurology. Noticing increased tremors, drooling. Some weight loss d/t inability to eat r/t inability to hold silverware steady. He had a fall July 19, no injuries noted. His psychiatrist stopped his Risperdal 05/20/17 and pt is now taking Geodon. Med list updated. JESUS Mosqueda MD 07/27/2017 7:19 PM Signed Subjective: Sherita uJrado is a 71 year old White male, Patient presents with: Tremor: needs neurology referral . HPI Patient here with caregiver from his skilled nursing. Has been having tremors X yrs, but few months its worse. Was referred to Neuro last year but pt never followed through. Is here today to get a new referral. No - Dysphagia. Some constipation but per caregiver pt never mentioned that at the skilled nursing. + drooling Unsteady gait for a while, gradually worsening over time. S/p Fall - 07/14/17 but no injuries. + memory issues. But also has h/o schizo, sees psych, risperdal stopped 05/20/17 for concern for S/E. Recently was started on geodon. Also started on amantadine by psych. Wt loss - 209 (02/14/17) to 193 ( 07/18/17). D/t tremors he has been having difficulty eating as food falls off the spoon. At the skilled nursing staff is not allowed to assist with feeding. H/o schizophrenia , has a guardian - 10+yrs at skilled nursing. PAST MEDICAL HISTORY Diagnosis Date - Actinic keratosis - Breast lump LT breast; cavernous hemangioma/excised - Dizziness - Epidermoid cyst of skin - Lipoma of skin forearms and abdomen - Mammogram abnormal suspicious of cancer- referral made - Obesity - On upper doubler drug therapy - Palpitations - Schizophrenia (HCC) - Tremor - Vitamin D deficiency PAST SURGICAL HISTORY Procedure Laterality Date - NONE Social History Substance Use Topics - Smoking status: Former Smoker - Smokeless tobacco: Never Used - Alcohol use No Family history reviewed. ALLERGIES Allergen Reactions - Goose Feathers Allen* Unknown - Zyprexa [Olanzapine] Unknown Current Outpatient Prescriptions: amantadine HCl (SYMMETREL) 100 mg tablet Take 100 mg by mouth twice daily. ziprasidone (GEODON) 80 mg capsule Take 80 mg by mouth twice daily with meals. VITAMIN D 1,000 unit tab tablet Take 1,000 Units by mouth once daily. Donepezil 23 mg tab Take 1 tablet by mouth daily at bedtime. FLAXSEED OIL (OMEGA 3 ORAL) Take by mouth. benztropine (COGENTIN) 1 mg tablet 1 tablet by mouth 2 times day RISPERDAL CONSTA 25 mg/2 mL injection Multivitamin capsule Take 1 capsule by mouth once daily. No current facility-administered medications for this visit. Review of Systems Constitutional: Negative for chills, fever and malaise/fatigue. HENT: Negative for congestion, ear pain and sore throat. Eyes: Negative for blurred vision. Respiratory: Negative for cough, shortness of breath and wheezing. Cardiovascular: Negative for chest pain, orthopnea and leg swelling. Gastrointestinal: Negative for abdominal pain, diarrhea, heartburn, nausea and vomiting. Genitourinary: Negative for dysuria. Skin: Negative for rash. Neurological: Negative for dizziness, tingling, sensory change, focal weakness and headaches. BP 100/64 Pulse 66 Temp (Src) 97.6 (Oral) Ht 5' 9.25ANDquot; (1.76m) Wt 188 lb 3.2 oz (85.4kg) BMI 27.59 kg/(m2). Physical Exam Constitutional: He is well-developed, well-nourished, and in no distress. No distress. HENT: Head: Normocephalic. Eyes: Conjunctivae are normal. Right eye exhibits no discharge. Left eye exhibits no discharge. Cardiovascular: Normal rate, regular rhythm, normal heart sounds and intact distal pulses. No murmur heard. Pulmonary/Chest: Effort normal and breath sounds normal. No respiratory distress. He has no wheezes. Abdominal: Soft. Bowel sounds are normal. He exhibits no distension. There is no tenderness. Musculoskeletal: Edema: no LE edema. Neurological: He is alert. Skin: Skin is warm and dry. Psychiatric: Mood normal. b/l UE - resting tremor, increases with intended movement. Strength b/l UE/LE 4+/5 Sensation intact b/l UE/LE to touch/ pain. No rigidity Coordination intact legs Unable to walk in a straight line ASSESSMENT/PLAN: 1. Coarse tremors - ICD9: 781.0, ICD10: G25.2 (primary diagnosis) ? Parkinson's - CONSULT TO NEUROLOGY 2. Unsteady gait - ICD9: 781.2, ICD10: R26.81 ? D/t parkinson's, though will r/o other etio - CONSULT TO NEUROLOGY - pt requesting Dr. reyes - CT BRAIN WO IVCON - VITAMIN B12 BLOOD - FOLATE SERUM 3. Weight loss - ICD9: 783.21, ICD10: R63.4 ? etio - poor po intake - r/o other metabolin issues - check CBC, CMP - declined colonoscopy in the past and now. 4. Screening for lipid disorders - ICD9: V77.91, ICD10: Z13.220 - LIPID PANEL BASIC 5. Screening for deficiency anemia - ICD9: V78.1, ICD10: Z13.0 - CBC 6. Screening for diabetes mellitus - ICD9: V77.1, ICD10: Z13.1 - COMP METABOLIC PANEL Refusing vaccines as well. Discussed above plan with patient. Pt agreeable with above plan. David Hidalgo MD This note was partially generated using [employer] voice recognition system, and there may be some incorrect words, spellings, and punctuation that were not noted in checking the note before saving. Referring Provider: SELF [200] Allergies As of Date: 07/24/2017 Noted Allergy Reaction GOOSE FEATHERS ALLERGENIC EXTRACT 11/08/2016 16 - Unknown ZYPREXA (OLANZAPINE) 11/08/2016 16 - Unknown Date Reviewed: 07/24/2017 Reviewed by: Brigid Villaseñor - Fully Assessed Reason for Visit: Tremor [758] Cmt: needs neurology referral Reason For Visit History Recorded Primary Visit Diagnosis:Coarse tremors [G25.2] Other Visit Diagnoses:Unsteady gait [R26.81] Weight loss [R63.4] Screening for lipid disorders [Z13.220] Screening for deficiency anemia [Z13.0] Screening for diabetes mellitus [Z13.1] Order(s):CONSULT TO NEUROLOGY [9019] Order #: [id number]: 1 CT BRAIN WO IVCON [6291770] Order #: [id number] FUTURE VITAMIN B12 BLOOD [SQB12] Order #: [id number] FUTURE FOLATE SERUM [SQSERFOL] Order #: [id number] FUTURE CBC [SQCBC] Order #: [id number] FUTURE COMP METABOLIC PANEL [SQCMP] Order #: [id number] FUTURE LIPID PANEL BASIC [SQLIPB] Order #: [id number] FUTURE TSH, REFLEX [9002786] Order #: [id number] FUTURE Prescriptions as of 07/24/2017 Sig: AMANTADINE HCL 100 MG TABLET Take 100 mg by mouth twice da* ZIPRASIDONE 80 MG CAPSULE Take 80 mg by mouth twice bailey* VITAMIN D3 1,000 UNIT TABLET Take 1,000 Units by mouth onc* DONEPEZIL 23 MG TABLET Take 1 tablet by mouth daily * Medication notes this encounter AMANTADINE HCL 100 MG TABLET >> Brigid Villaseñor LPN 07/24/2017 2:04 PM >> BRIGID VILLASEÑOR LPN [facility] Jul 24, 2017 2:04 PM Directions are 2 tablets after dinner daily. OMEGA 3 ORAL >> Brigid Villaseñor LPN 07/24/2017 2:01 PM >> BRIGID VILLASEÑOR LPN [facility] Jul 24, 2017 2:01 PM Not taking. BENZTROPINE 1 MG TABLET >> Brigid Villaseñor LPN 07/24/2017 2:01 PM >> BRIGID VILLASEÑOR LPN [facility] Jul 24, 2017 2:01 PM Not taking. RISPERDAL CONSTA 25 MG/2 ML INTRAMUSCULAR SYRINGE >> Brigid Villaseñor LPN 07/24/2017 2:02 PM >> BRIGID VILLASEÑOR LPN [facility] Jul 24, 2017 2:02 PM Not taking. MULTIVITAMIN CAPSULE >> Brigid Villaseñor LPN 07/24/2017 2:01 PM >> BRIGID VILLASEÑOR LPN [facility] Jul 24, 2017 2:01 PM Not taking. Problem List As Of Date: 07/24/2017 (None) Visit Notes: >> Brigid (Jesus) Robert Ayla Jul 24, 2017 2:05 PM Status: Signed Pt presents today for referral to neurology. Noticing increased tremors, drooling. Some weight loss d/t inability to eat r/t inability to hold silverware steady. He had a fall July 19, no injuries noted. His psychiatrist stopped his Risperdal 05/20/17 and pt is now taking Geodon. Med list updated. Brigid Villaseñor LPN Medications Discontinued During This Encounter benztropine (COGENTIN) 1 mg tablet 12/30/2015 07/24/2017 Class: Historical Med Si tablet by mouth 2 times day Disc: Discontinued by another Health Care Provider RISPERDAL CONSTA 25 mg/2 mL injection 11/16/2015 07/24/2017 Class: Historical Med Sig: Disc: Discontinued by another Health Care Provider FLAXSEED OIL (OMEGA 3 ORAL) 07/24/2017 Class: Historical Med Route: ORAL Sig: Take by mouth. Disc: Discontinued by Patient Multivitamin capsule 07/24/2017 Class: Historical Med Route: ORAL Sig: Take 1 capsule by mouth once daily. Disc: Discontinued by Patient Disposition: Return in about 3 months (around 10/23/2017). Follow-up and Disposition History Recorded Encounter Status:Closed by MD HIDALGO SIMRANJOT on 07/27/17 CNCO Observed: 07/24/2017 Status: COMPLETED Source: [place] 12:00 AM [facility] REPOSITORY Letter Text [address] [address] Dept Dept David Hidalgo MD [facility] -[address] [place] [id number] - - July 24, 2017 Sherita Jurado [address] [facility] [address] 1945 Dear Mr. Lynns, You have been referred to Dr Reyes to be evaluated and treated for tremors. Please call [phone] to schedule your appointment. [facility] affiliated providers will have access to your records. We ask that if you are not seeing a [facility] affiliated provider that you notify our office and provide the name of the provider and your appointment date. We will then verify if your insurance requires a prior authorization and will forward your records in a timely manner. Sincerely, David Hidalgo M.D. (Signed electronically to expedite mailing) Letter Text September 04, 2017 [facility] [address] [place], [place] [address] Regarding: Sherita Dacosta Adrien (: 1945) Dear Dr. Hidalgo: A patient of your practice, Sherita Jurado, was admitted on 09/03/2017 to [facility] under the services of the Department of Hospital Medicine, and is currently under the care of Dr. Ledesma. We look forward to collaborating with you regarding his care. If you have any questions or concerns, please call us in the Department of Hospital Medicine at [facility], at [phone]. Best Regards, Cristobal Barrera Letter Text September 09, 2017 [facility] [address] [address] Re: Sherita Jurado Dear Dr. Hidalgo: A patient of your practice, Sherita Jurado (: 1945) was treated at [facility] under the care of the [facility] Department of Hospital Medicine, and discharged on 09/07/2017. A transcribed discharge summary should be forthcoming promptly. If you need additional information or assistance, you may contact the Department of Hospital Medicine at [phone] during regular business hours, and we?ll be happy to assist you. Best Regards, Cristobal Barrera CNPN Observed: 07/24/2017 Status: COMPLETED Source: [place] 12:00 AM [facility] REPOSITORY Telephone (AGFAMPLE) JURADOSHERITA Lepe ([id number]) 1945 M Date Time Provider Department 07/24/17 GWEN[place]VID During your visit today, we recorded the following information about you: Estelita Wong 07/24/2017 3:04 PM Signed Quality Assurance Inspector will make appt and let us know if we need to give office any info. Mayra Aburto ([facility]) 08/25/2017 11:39 AM Signed Patient has an appointment with Dr. Reyes in October. Please process referral. Thanks. Mayra Cordova [facility] Allergies As of Date: 07/24/2017 Noted Allergy Reaction GOOSE FEATHERS ALLERGENIC EXTRACT 11/08/2016 16 - Unknown ZYPREXA (OLANZAPINE) 11/08/2016 16 - Unknown Date Reviewed: 07/24/2017 Reviewed by: Brigid Villaseñor (Folder Tier) - Fully Assessed Reason for Visit: Consult [502] Cmt: referral to Dr Reyes (neuro) given at [facility] Prescriptions as of 07/24/2017 Sig: AMANTADINE HCL 100 MG TABLET Take 100 mg by mouth twice da* ZIPRASIDONE 80 MG CAPSULE Take 80 mg by mouth once priyanka* VITAMIN D3 1,000 UNIT TABLET Take 1,000 Units by mouth onc* DONEPEZIL 23 MG TABLET Take 1 tablet by mouth daily * Problem List As Of Date: 07/24/2017 (None) Encounter Status:Closed by ESTELITA WONG on 07/24/17 OFFICE VISIT REPORT Observed: 05/19/2017 Status: F Source: [place] 12:32 PM [facility] Ej KimROBEL [place] [address] OFFICE VISIT Date of Service: 05/19/17 MR#: [id number] Acct: [id number] Patient: JURADOSHERITA Rep #: [id number] : 1945 Provider: Refugio DAMICO Age/Sex: 71/M Location: [facility]NOW Status: Signed Intake Intake Visit Reasons: 2ND TB Office Procedures PPD Procedure TB Med Used: Tuberculin PPD 5 tub. unit/0.1 mL intradermal injection solution was administered Lot number: [id number] Exhaust Equipment Operator: Sanofi Pasteur date: 07/12/18 PPD Location: Left forearm Date PPD Placed: 05/19/17 Time PPD Placed: 9:51 am PPD Placed By: Boo Jim Assessment AND Plan Orders Orders: 05/19/17 1232 <Electronically signed by Refugio DAMICO> Date Refugio DAMICO Cosigner Signature: Date (if applicable) CC: ALLERGIES ALLERGIES DATE TYPE / CODE NAME / CODE REACTION SEVERITY SOURCE 11/08/2016 DRUG GOOSE FEATHERS UNKNOWN [facility] INGREDI/419 ALLERGENIC Other [place] 160871(SNOM EXTRACT Repository ED CT) 11/08/2016 DRUG OLANZAPINE UNKNOWN [facility] INGREDI/[facility] Other [place] 238566(SNOM Repository ED CT) 11/08/2016 DRUG GOOSE FEATHERS UNKNOWN [facility] INGREDI/[facility] ALLERGENIC Other [place] [address]2012(SNOM EXTRACT Repository ED CT) 11/08/2016 DRUG OLANZAPINE UNKNOWN [facility] INGREDI/419 Other [place] 028978(SNOM Repository ED CT) ENCOUNTERS ENCOUNTERS ADMIT/DISCHARGE ACCOUNT NUMBER ADMITTING ENCOUNTER LOCATION SOURCE CLASS 04/29/2018 [id number] APOLLO, UP[facility] Inpatient [place] [facility] Other [place] Repository 04/28/2018/04/29/19 [id number] Emergency [place] [facility] Other [place] Repository 03/27/2018 [id number] [facility] ding:[facility] Repository 03/27/2018 [id number] Ambulatory [facility] ding:MRI Repository 03/11/2018/03/11/20 [id number] Emergency [address] Other [place] Repository 02/01/2018/02/02/20 [id number] Emergency [address] Other [place] Repository 01/23/2018/01/31/20 [id number] JOSSE BALDERRAMA Inpatient [place] [address] [facility] Other [place] Repository 01/22/2018/01/23/20 [id number] Emergency [address] Other [place] Repository 12/17/2017/12/25/19 [id number] ZAINA, Ambulatory [address] Other [place] Repository 10/16/2017/10/21/19 [id number] Ambulatory [address] Main [place] Repository 09/07/2017/09/13/19 [id number] YUNIEL KRAFT, Inpatient [address] [facility] Other [place] Repository 09/03/2017/09/08/19 [id number] FRANCISCO STARKS Ambulatory [address] Other [place] Repository 05/21/2017/05/21/19 [id number] Ambulatory BMSBuilding: [place] [facility] Repository 05/19/2017/05/19/19 [id number] Ambulatory BMSBuilding: [place] 18 [facility] Repository PAYERS PAYERS ENCOUNTER GUARANTOR PAYER SUBSCRIBER SOURCE 03/27/2018 SHERITA L Primary SHERITA L [place] [facility] Insurance:ANTHEM PERKINANGELLAOB: Community CENTER[address] [employer] [id number] [address]Jis: 330) Number: [phone] (HP) [id number] e Date:[id number] [address] [place] [address] 22[address]VZ: 03/27/2018 Secondary SHERITA L [place] Insurance:MEDICAIDPo PERKINSDOB: [facility] Number: [id number] [id number] Repository e Date:2018-03-27 03/27/2018 Tertiary NOT GIVENUNK [place] Insurance:SELF PAY [facility] Number: Effective Repository Date:2018-03-27 03/27/2018 SHERITA L Primary SHERITA L [place] [facility] Insurance:ANTHEM PERKINSDOB: [facility] CENTER14976 [employer] [id number] [address]Fch: (330) Number: [phone] () [id number] e Date:[id number], [place] [address]EC: 03/27/2018 Secondary SHERITA L [place] Insurance:MEDICAIDPo PERKINSDOB: [facility] Number: [id number] Hospital [id number] Repository e Date:2018-03-19 03/27/2018 Tertiary NOT GIVENUNK [place] Insurance:SELF PAY [facility] Number: Effective Repository Date:2018-03-19 05/21/2017 SHERITA LYNNS645 Primary NOT GIVENUNK [place] Insurance:SELF PAY On License Of [facility] [id number]: (330) [facility] [id number] (HP) Number: Effective Repository Date:2017-05-21 05/19/2017 SHERITA LYNNS645 Primary NOT GIVENUNK [place] Insurance:SELF PAY On License Of [facility] [id number]: (330) [facility] [phone] (HP) Number: Effective Repository Date:2017-05-19
== END ==
PROVIDERS: Family Provider Internal Medicine Geriatric Medicine; PCP Internal Medicine Geriatric Medicine; Referring Provider Psychiatry & Neurology Neurology; Visit Provider Psychiatry & Neurology Neurology
DX: R55 Syncope and collapse (principal)
CPT/HCPCS: 70551; 93270; 95819

== ENCOUNTER → 2018-03-27 08:30 | Outpatient (REF) | payer MEDICARE, MEDICAID, SELFPAY ==
--- NOTE | 2018-03-29 13:21 | EEG ---
- Electroencephalogram Date of service 03/27/18 This is a 18 channel electroencephalogram, video-assisted, performed utilizing the International 10-20 electrode placement protocol on this 72-year-old male. EKG reference leads and photic stimulation were also performed. The EKG is regular throughout the recording. Background activity is 9-10 Hz medically in the posterior leads which attenuates with eye-opening. The patient remained awake throughout the recording. There are intermittent episodes of bilateral arm shaking without underlying electrographic abnormality. On video this is seem to be bilateral symmetric arm shaking, with no other abnormal body movements. The movements are eliminated when the special effects technician intervenes. There are no lateralizing or epileptiform changes. Photic stimulation generates a normal symmetric driving response in the posterior leads. Impression: No epileptiform abnormalities. Bilateral arm tremor is noted without electrographic correlate.
--- NOTE | 2018-03-29 13:27 | EEG_ITS ---
- Electroencephalogram Date of service 03/27/18 This is a 18 channel electroencephalogram, video-assisted, performed utilizing the International 10-20 electrode placement protocol on this 72-year-old male. EKG reference leads and photic stimulation were also performed. The EKG is regular throughout the recording. Background activity is 9-10 Hz medically in the posterior leads which attenuates with eye-opening. The patient remained awake throughout the recording. There are intermittent episodes of bilateral arm shaking without underlying electrographic abnormality. On video this is seem to be bilateral symmetric arm shaking, with no other abnormal body movements. The movements are eliminated when the rail technician intervenes. There are no lateralizing or epileptiform changes. Photic stimulation generates a normal symmetric driving response in the posterior leads. Impression: No epileptiform abnormalities. Bilateral arm tremor is noted wit hout electrographic correlate.
--- OUTSIDE RECORDS SUMMARY | 2018-05-12 20:27 | XMS RPT_ITS ---
[...] Active Unknown / UNK(Unknown) APOLLO, UPMA Active [facility] Other [place] Repository 04/28/2018 Active Other symptoms and NA Active [place] signs involving Clinic Other appearance and [place] behavior / Repository R46.89(ICD-10) 04/28/2018 Active Undifferentiated NA Active [place] schizophrenia / Clinic Other F20.3(ICD-10) [place] [facility] 03/11/2018 Active Laceration without SCHWIGER, EUSEBIO Active [place] foreign body of left [facility] Clinic Other ear, initial encounter [place] / S01.312A(ICD-10) Repository 02/01/2018 Active Nausea with vomiting, CRISTOBAL BROWN Active [place] unspecified / REFUGIO Clinic Other R11.2(ICD-10) [place] Rep[facility] 01/23/2018 Active Schizotypal disorder / APOLOL, 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(ICD-10) Clinic Other [place] Repository 01/22/2018 Active Schizophreniform SCHIKOWSKI, [facility]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 / SHERITA WEISS Clinic Other F20.81(ICD-10) [place] Rep[facility] 12/24/2017 Active Unspecified severe THUESTAD, EUGENIA [facility] protein-calorie A (MD) Clinic Other malnutrition / [place] E43(ICD-10) Repository 12/24/2017 Active Deficiency of other THUESTAD, EUGENIA [facility] specified B group A () Clinic Other vitamins / [place] E53.8(ICD-10) Repository 12/17/2017 Active Disorientation, THUESTAD, EUGENIA [facility] unspecified / A () Clinic Other R41.0(ICD-10) [place] Rep[facility] 12/17/2017 Active Pain in left toe(s) / THUESTAD, EUGENIA [facility] M79.675(ICD-10) A () Clinic Other [place] Repository 12/17/2017 Active Parkinson's disease / THUESTAD, EUGENIA [facility] G20(ICD-10) A () Clinic Other [place] Rep[facility] 12/17/2017 Active Dementia in other THUESTAD, EUGENIA [facility] diseases classified A () Clinic Other elsewhere with [place] behavioral disturbance Repository / F02.81(ICD-10) 09/09/2017 Active Mild protein-calorie POQUIANA FAYELA Active [place] malnutrition / J Clinic Other E44.1(ICD-10) [place] Rep[facility] 09/03/2017 Active Tremor, unspecified / AHMED, VASEEM Active [place] R25.1(ICD-10) Clinic Other [place] Rep[facility] 09/03/2017 Active Dysphagia, unspecified AHMED, VASEEM Active [place] / R13.10(ICD-10) Clinic Other [place] Rep[facility] 09/03/2017 Active Abnormal weight loss / AHMED, VASEEM Active [place] R63.4(ICD-10) Clinic Other [place] Rep[facility] 09/03/2017 Active Other malaise / AHMED, VASEEM Active [place] R53.81(ICD-10) Clinic Other [place] Rep[facility] 09/03/2017 Active Other drug induced AHMED, 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 Clinic Other / G21.19(ICD-10) [place] Rep[facility] 06/10/2017 Unknown Z11.1 - Encounter for [place] Ro Active [place] screening for [facility] tuberculosis / Repository Z11.1(ICD-10) PROCEDURES PROCEDURES No Procedure Records FoundRESULTS RESULTS CASE MANAGEM Observed: 05/06/2018 Status: COMPLETED Source: [place] 1:06 PM [facility] OTHER [place] REPOSITORY HNO ID: [id number] Author: Silva Bobby (Sw) Service: Social Work Author Type: Wall Man Type: Care Mgt Progress Note Filed: 05/06/2018 1:10 PM Note Text: BEHAVIORAL HEALTH SOCIAL WORK PROGRESS NOTE SERVICE DATE: 05/06/2018 SERVICE TIME: 1:06 PM Referral information sent to [facility] Pt wasn't accepted at [facility] or [facility]. [facility] is still reviewing the information and [facility] is sending someone out to assess pt. Will continue to offer pt support and structure and assist with discharge plans. SIGNATURE: BRIELLE Baldwin PATIENT NAME: Sherita Jurado DATE: May 06, 2018 TIME: 1:06 PM PROGRESS Observed: 05/06/2018 Status: COMPLETED Source: [place] 11:54 AM CLINIC OTHER CAMPUS REPOSITORY HNO ID: [id number] Author: Vikram Washington Service: General Internal Medicine [...] -- 04/29/18 1015 vte non-pharmacologic prophylaxis contraindicated ([place], [place]) 04/29/18 1015 activity - mobilize patient ([place]) 04/29/18 1000 vte pharmacologic prophylaxis contraindicated ([place]) 04/29/18 1000 vte non-pharmacologic prophylaxis - none indicated ([place], [place]) VTE Prophylaxis: VTE prophylaxis appropriate SIGNATURE: Vikram Washington MD PATIENT NAME: Sherita Jurado DATE: May 06, 2018 TIME: 11:54 AM PAGER/CONTACT #: [phone] NURSING PROG Observed: 05/06/2018 Status: COMPLETED Source: [place] 9:41 AM CLINIC OTHER CAMPUS REPOSITORY HNO ID: [id number] Author: Magdalena Pace RN Service: (none) Author Type: Registered Nurse Type: Nursing Progress Note Filed: 05/06/2018 12:13 PM Note Text: Nursing Progress Note Patient Name: Sherita Jurado Patient Location: [place]/ [place] Daily Note:A+Ox1-2, affect blunted, mood withdrawn, disengaged, [...] NURSING PROG Observed: 05/05/2018 Status: COMPLETED Source: [place] 11:14 PM [facility] REPOSITORY HNO ID: [id number] Author: Michelle (Rn) JOSE Lozada Service: (none) Author Type: Registered Nurse Type: Nursing Progress Note Filed: 05/06/2018 6:13 AM Note Text: Nursing Progress Note Patient Name: Sherita Jurado Patient Location: [facility] [place]/ [place] Daily Note: Patient AANDOx2. No c/o pain. [...] WO IVCON Observed: 05/05/2018 Status: F Source: [place] 2:50 PM [facility] REPOSITORY * * *Final Report* * [...] [id number] PROGRESS Observed: 05/05/2018 Status: COMPLETED Source: [place] 1:47 PM CLINIC OTHER CAMPUS REPOSITORY HNO ID: [id number] Author: Josse Balderrama Service: Psychiatry Author Type: [...] May 05, 2018 TIME: 1:47 PM PAGER/CONTACT#: [phone] I saw and evaluated the patient. Discussed with the SUPERVISOR BRAKE REPAIR and agree with SUPERVISOR BRAKE REPAIR's findings and plan as documented in the SUPERVISOR BRAKE REPAIR's note. Kelechi Yan MD CASE MANAGEM Observed: 05/05/2018 Status: COMPLETED Source: [place] 1:08 PM [facility] REPOSITORY HNO ID: [id number] Author: Silva Bobby (Sw) Service: Social Work Author Type: Wall Man Type: Care Mgt Progress Note Filed: 05/05/2018 [...] respond to redirection. Referral information sent to [facility]; awaiting for a response. Will continue to offer pt support and structure and assist with discharge plans. SIGNATURE: BRIELLE Baldwin PATIENT NAME: Sherita Jurado DATE: May 05, 2018 TIME: 1:08 PM NUTRITION Observed: 05/05/2018 Status: COMPLETED Source: [place] 12:17 PM [facility] REPOSITORY HNO ID: [id number] Author: Tanya Clements Service: Nutrition Therapy Author [...] cancer- referral made - Obesity - On intermediate manager drug therapy - Palpitations - Parkinson disease [...] Resting Metabolic Rate: 1509 Estimated kilocalorie needs: 6338-6094 kilocalories determined by 27-32 kcal/kg Estimated protein needs: 89-117 grams determined by 1.3-1.7 g/kg Dosing weight Estimated fluid needs: 2932-2103 milliliters based on 1 mL per kcal [...] May 05, 2018 TIME: 12:17 PM PAGER: [phone] NURSING PROG Observed: 05/05/2018 Status: COMPLETED Source: [place] 10:41 AM CLINIC OTHER CAMPUS REPOSITORY HNO ID: [id number] Author: Kamila (Rn) JOSE Villalta Service: (none) Author Type: Registered Nurse Type: Nursing Progress Note Filed: 05/05/2018 6:11 PM Note Text: Nursing Progress Note Patient Name: Sherita Jurado Patient Location[place]/ [place] Daily Note: Pt alert and oriented x [...] NURSING PROG Observed: 05/05/2018 Status: COMPLETED Source: [place] 5:14 AM [facility] OTHER [place] REPOSITORY HNO ID: [id number] Author: Jamila (Rn) JOSE Barrett Service: Nursing Author Type: Registered Nurse Type: Nursing Progress Note Filed: 05/05/2018 5:14 AM Note Text: Nursing Progress Note Patient Name: Sherita Jurado Patient Location: [address]/ [place] Daily Note:Pt was in bed, resting comfortably. Pt took HS meds w/o difficultly. Pt was assisted to the bathroom as needed. No s/s of pain or distress. Pt slept long hours. This note was completed by: Jamila Barrett RN CBC AND DIFFERENTIAL Collected: 05/04/2018 Status: F Source: [place] 7:30 PM [facility] OTHER [place] REPOSITORY TYPE CODE TESTS RESULT OUT OF [...] k/uL Abs Lymph 1.21 LAB AMONO % [place]% 9.2 LAB AAMONO <0.87 k/uL Abs [place] 0.43 LAB AEOS % Eosin% 1.3 LAB AAEOS <0.46 k/uL Abs Eosin 0.06 LAB ABASO % Baso% 0.4 LAB AABASO <0.11 k/uL Abs Baso <0.03 LAB DTYP DTYPE Auto Diff BASIC METABOLIC PANL Collected: 05/04/2018 Status: F Source: [place] 7:30 PM CLINIC OTHER CAMPUS REPOSITORY TYPE [...] ALLIED HEALTH Observed: 05/04/2018 Status: COMPLETED Source: [place] 5:36 PM CLINIC OTHER CAMPUS REPOSITORY HNO ID: [id number] Author: AGUSTÍN Parsons Service: Behavioral Health Author [...] topics Attendence Comments 05/02/18 DMT: Friday stretch/ pechanga of support goals/ progress 0 ? 05/03/18 [...] MT: Music Therapy DR: Dining Room SW: Wall Man ET: Expressive Therapy RT: Recreation Therapy ? SIGNATURE: AGUSTÍN Parsons PATIENT NAME: Sherita Jurado DATE: May 04, 2018 TIME: 5:37 PM PAGER/CONTACT #: NURSING PROG Observed: 05/04/2018 Status: COMPLETED Source: [place] 2:12 PM [facility] REPOSITORY HNO ID: [id number] Author: Kamila (Rn) JOSE Villalta Service: (none) Author Type: Registered Nurse Type: Nursing Progress Note Filed: 05/04/2018 5:59 PM Note Text: Nursing Progress Note Patient Name: Sherita Jurado Patient Location: [address] Daily Note: Pt alert and oriented [...] RN PROGRESS Observed: 05/04/2018 Status: COMPLETED Source: [place] 11:38 AM [facility] OTHER [place] REPOSITORY HNO ID: [id number] Author: Josse Balderrama Service: Psychiatry Author Type: [...] May 04, 2018 TIME: 11:38 AM PAGER/CONTACT#: [phone] I saw the patient and have read and reviewed the SUPERVISOR BRAKE REPAIR's note and findings. I have discussed the SUPERVISOR BRAKE REPAIR's findings and plan as documented in the SUPERVISOR BRAKE REPAIR's note. Josse Balderrama MD PROGRESS Observed: 05/04/2018 Status: COMPLETED Source: [place] 6:37 AM [facility] OTHER CAMPUS REPOSITORY O ID: [id number] Author: Vikram Washington Service: General Internal Medicine [...] -- 04/29/18 1015 vte non-pharmacologic prophylaxis contraindicated ([place]) 04/29/18 1015 activity - mobilize patient ([place]) 04/29/18 1000 vte pharmacologic prophylaxis contraindicated ([place]) 04/29/18 1000 vte non-pharmacologic prophylaxis - none indicated ([place]) VTE Prophylaxis: VTE prophylaxis appropriate SIGNATURE: Vikram Washington MD PATIENT NAME: Sherita Jurado DATE: May 04, 2018 TIME: 6:37 AM PAGER/CONTACT #: [phone] NURSING PROG Observed: 05/04/2018 Status: COMPLETED Source: [place] 6:14 AM [facility] REPOSITORY HNO ID: [id number] Author: Jamila (Rn) JOSE Barrett Service: Nursing Author Type: Registered Nurse Type: Nursing Progress Note Filed: 05/04/2018 6:14 AM Note Text: Nursing Progress Note Patient Name: Sherita Jurado Patient Location: [place]-403/ [place]-* Daily Note:Pt was in bed, resting comfortably. Pt took HS meds w/o difficultly. Pt was assisted to the bathroom as needed. No s/s of pain or distress. Pt slept long hours. This note was completed by: Jamila Barrett RN URINALYSIS WITH Collected: 05/03/2018 Status: F Source: [facility] 6:00 PM [facility] REPOSITORY TYPE CODE TESTS RESULT OUT OF RANGE REFERENCE UNITS LAB UCOL Yellow Color Abnormal Straw Alert LAB [facility] Clear Clarity Clear LAB UGLUC Negative mg/dL Glucose, Urine Negative LAB UBIL Negative Bilirubin, Urine Negative LAB [facility] Negative Ketones, Urine Negative LAB [facility] 1.003-1.030 Specific [place], Ur 1.020 LAB UHGB Negative Hemoglobin/Blood, Negative [...] Epithelial Cells Observed: 05/03/2018 Status: F Source: [place] URINE CULTURE 6:00 PM [facility] OTHER CAMPUS REPOSITORY Sp. Request/Comment: - Specimen received in preservative Culture Result - >=100,000 CFU/ml Viridans Streptococcus --> ABNORMAL ALERT No further workup --> ABNORMAL ALERT Performed By: #### URCUL #### [facility] [address] [place], [place] [address] PROGRESS Observed: 05/03/2018 Status: COMPLETED Source: [place] 1:34 PM [facility] OTHER CAMPUS REPOSITORY HNO ID: [id number] Author: Josse Balderrama Service: Psychiatry Author Type: [...] May 03, 2018 TIME: 1:34 PM PAGER/CONTACT#: [phone] I saw the patient and have read and reviewed the SUPERVISOR BRAKE REPAIR's note and findings. I have discussed the SUPERVISOR BRAKE REPAIR's findings and plan as documented in the SUPERVISOR BRAKE REPAIR's note. Josse Balderrama MD NURSING PROG Observed: 05/03/2018 Status: COMPLETED Source: [place] 1:19 PM CLINIC OTHER CAMPUS REPOSITORY HNO ID: [id number] Author: Radha SpencerRn) JOSE Bailey Service: (none) [...] NURSING PROG Observed: 05/02/2018 Status: COMPLETED Source: [place] 8:59 PM [facility] REPOSITORY HNO ID: [id number] Author: Arielle SpencerRn) JOSE Oliver Service: (none) Author Type: Registered Nurse Type: Nursing Progress Note Filed: 05/02/2018 9:03 PM Note Text: Nursing Progress Note Patient Name: Sherita Jurado Patient Location[place] Daily Note: Pt in bed ,quiet, went out of the room , at the dining, cooperative with care , calm, takes all his night meds whole with water, heparin shot given . This note was completed by: Arielle Oliver RN NURSING PROG Observed: 05/02/2018 Status: COMPLETED Source: [place] 11:54 AM [facility] REPOSITORY HNO ID: [id number] Author: Kamila SpencerRn) JOSE Villalta Service: (none) Author Type: Registered Nurse Type: Nursing Progress Note Filed: 05/02/2018 7:04 PM Note Text: Nursing Progress Note Patient Name: Sherita Jurado Patient Location[place] Daily Note: Alert and oriented x 2. [...] RN PROGRESS Observed: 05/02/2018 Status: COMPLETED Source: [place] 10:25 AM [facility] OTHER CAMPUS REPOSITORY O ID: [id number] Author: Vikram Washington Service: General Internal Medicine [...] -- 04/29/18 1015 vte non-pharmacologic prophylaxis contraindicated ([place]) 04/29/18 1015 activity - mobilize patient ([place]) 04/29/18 1000 vte pharmacologic prophylaxis contraindicated ([place]) 04/29/18 1000 vte non-pharmacologic prophylaxis - none indicated ([place]) VTE Prophylaxis: VTE prophylaxis appropriate SIGNATURE: Vikram Washington MD PATIENT NAME: Sherita Jurado DATE: May 02, 2018 TIME: 10:25 AM PAGER/CONTACT #: [phone] PROGRESS Observed: 05/02/2018 Status: COMPLETED Source: [place] 9:12 AM CLINIC OTHER CAMPUS REPOSITORY [facility] ID: [id number] Author: Josse Balderrama Service: Psychiatry Author Type: [...] May 02, 2018 TIME: 9:12 AM PAGER/CONTACT#: [phone] I saw the patient and have read and reviewed the SUPERVISOR BRAKE REPAIR's note and findings. I have discussed the SUPERVISOR BRAKE REPAIR's findings and plan as documented in the SUPERVISOR BRAKE REPAIR's note. Josse Balderrama MD ALLIED HEALTH Observed: 05/02/2018 Status: COMPLETED Source: [place] 8:39 AM CLINIC OTHER CAMPUS REPOSITORY O ID: [id number] Author: AGUSTÍN Parsons Service: Behavioral Health Author Type: Dance Movement Therapist Type: Allied Health Filed: 05/02/2018 1:39 PM Note Text: PROGRESS NOTE BEHAVIORAL HEALTH Topic of Note: Three Day Note SERVICE DATE: 05/02/2018 SERVICE TIME: 1:31 PM Subjective: Sherita has been refusing Groups coming only to 3/4 of a session his first day on the Unit. He has been pleasant with this underwriter solicitation director when up and about on the unit. [...] lows 045 refused 05/02/18 DMT:Friday stretch and pechanga of support 0 Was with staff getting [...] MT: Music Therapy DR: Dining Room SW: Wall Man ET: Expressive Therapy RT: Recreation Therapy ? SIGNATURE: AGUSTÍN Parsons PATIENT NAME: Sherita Jurado DATE: May 02, 2018 TIME: 8:39 AM PAGER/CONTACT #: NURSING PROG Observed: 05/01/2018 Status: COMPLETED Source: [place] 10:52 PM CLINIC OTHER CAMPUS REPOSITORY HNO ID: [id number] Author: Geraldine (Rn) JOSE Olguin Service: (none) Author Type: Registered Nurse Type: Nursing Progress Note Filed: 05/02/2018 2:57 AM Note Text: Nursing Progress Note Patient Name: Sherita Jurado Patient Location: / [place] Daily Note: 1956 Pt in bed asleep; [...] NURSING PROG Observed: 05/01/2018 Status: COMPLETED Source: [place] 11:34 AM CLINIC OTHER CAMPUS REPOSITORY O ID: [id number] Author: Priscilla Watts) JOSE Aaron Service: Nursing Author Type: Registered Nurse Type: Nursing Progress Note Filed: 05/01/2018 8:32 PM Note Text: Nursing Progress Note Patient Name: Sherita Jurado Patient Location: / [place] Daily Note: Patient is alert and oriented [...] RN PROGRESS Observed: 05/01/2018 Status: COMPLETED Source: [place] 10:03 AM CLINIC OTHER CAMPUS REPOSITORY O ID: [id number] Author: Josse Balderrama Service: Psychiatry Author Type: [...] May 01, 2018 TIME: 10:03 AM PAGER/CONTACT#: [phone] I saw the patient and have read and reviewed the SUPERVISOR BRAKE REPAIR's note and findings. I have discussed the SUPERVISOR BRAKE REPAIR's findings and plan as documented in the SUPERVISOR BRAKE REPAIR's note. Josse Balderrama MD NURSING PROG Observed: 04/30/2018 Status: COMPLETED Source: [place] 11:58 PM CLINIC OTHER CAMPUS REPOSITORY HNO ID: [id number] Author: Geraldine SpencerRn) JOSE Olguin Service: (none) Author Type: Registered Nurse Type: Nursing Progress Note Filed: 05/01/2018 1:34 AM Note Text: Nursing Progress Note Patient Name: Sherita Jurado Patient Location: [address]/[facility] Daily Note: 1941 Pt walking in hallway from DR to his room. [address] 2029 Pt returned to his room. 2129 administered meds without difficulty. Pt AOx1, denied pain, cooperative with care, blunted affect, withdrawn. 0 Pt sleeping; no s/s of distress or pain. This note was completed by: GERALDINE OLGUIN RN NURSING PROG Observed: 04/30/2018 Status: COMPLETED Source: [place] 11:22 AM CLINIC OTHER CAMPUS REPOSITORY O ID: [id number] Author: Priscilla (Rn) JOSE Aaron Service: Nursing Author Type: Registered Nurse Type: Nursing Progress Note Filed: 04/30/2018 6:16 PM Note Text: Nursing Progress Note Patient Name: Sherita Jurado Patient Location: [address]-* Daily Note:Patient is alert and oriented [...] RN PROGRESS Observed: 04/30/2018 Status: COMPLETED Source: [place] 9:59 AM CLINIC OTHER CAMPUS REPOSITORY O ID: [id number] Author: Josse Balderrama Service: Psychiatry Author Type: [...] April 30, 2018 TIME: 9:59 AM PAGER/CONTACT#: [phone] I saw the patient and have read and reviewed the SUPERVISOR BRAKE REPAIR's note and findings. I have discussed the SUPERVISOR BRAKE REPAIR's findings and plan as documented in the SUPERVISOR BRAKE REPAIR's note. Josse Balderrama MD LIPID PANEL, BASIC Collected: 04/30/2018 Status: F Source: [facility] 6:30 AM CLINIC OTHER CAMPUS REPOSITORY TYPE [...] Desk Reference: National Heart, Lung, and Blood [place]. National Institutes of Health. 2001: NIH Publication No. 01-3305. 2. An International Atherosclerosis Society position paper: global recommendations for the management of dyslipidemia: executive summary, Atherosclerosis. 2014: 232(2):410-413. Performed By: #### LIPB #### [facility], [place] [address] HEMOGLOBIN A1C Collected: 04/30/2018 Status: F Source: [place] 6:30 AM CLINIC OTHER CAMPUS REPOSITORY TYPE CODE TESTS RESULT OUT OF REFERENCE UNITS RANGE LAB HGBA1C 4.3-5.6 % Hemoglobin A1c 4.6 Result Comment: [place] Diabetes Association guidelines indicate that patients with HgbA1c in the range 5.7-6.4% are at increased risk for development of diabetes, and intervention by lifestyle modification may be beneficial. HgbA1c greater or equal to 6.5% is considered diagnostic of diabetes. LAB HBA0 mg/dL Est. Average Glucose 85 Result Comment: eAG: (Estimated average glucose) is a calculated value from HgbA1c and is benefits representative of the average blood glucose level in the last 2-3 month period. Performed By: #### HBA1C #### [facility] [address] [place], [place] [address] [phone] CONSULT PROG Observed: 04/30/2018 Status: COMPLETED Source: [place] 6:06 AM CLINIC OTHER CAMPUS REPOSITORY HNO ID: [id number] Author: Vikram Washington Service: General Internal Medicine [...] April 30, 2018 TIME: 6:06 AM PAGER: [phone] NURSING PROG Observed: 04/29/2018 Status: COMPLETED Source: [place] 8:33 PM CLINIC OTHER CAMPUS REPOSITORY O ID: [id number] Author: Michelle (Rn) JOSE Lozada Service: (none) Author Type: Registered Nurse Type: Nursing Progress Note Filed: 04/30/2018 6:11 AM Note Text: Nursing Progress Note Patient Name: Sherita Jurado Patient Location: [place]/ [place] Daily Note: Patient AANDOx2 with disorientation [...] AND DIFFERENTIAL Collected: 04/29/2018 Status: F Source: [place] 1:07 PM CLINIC OTHER CAMPUS REPOSITORY TYPE [...] Low Abs Lymph 0.92 LAB AMONO % [place]% 6.5 LAB AAMONO <0.87 k/uL Abs [place] 0.34 LAB AEOS % Eosin% 1.1 LAB AAEOS <0.46 k/uL Abs Eosin 0.06 LAB ABASO % Baso% 0.8 LAB AABASO <0.11 k/uL Abs Baso 0.04 LAB DTYP DTYPE Auto Diff COMP METABOLIC PANEL Collected: 04/29/2018 Status: F Source: [place] 1:07 PM CLINIC OTHER CAMPUS REPOSITORY TYPE [...] MGT INIT Observed: 04/29/2018 Status: COMPLETED Source: [place] [facility] 12:10 PM CLINIC OTHER CAMPUS REPOSITORY HNO ID: [id number] Author: Silva Bobby (Sw) Service: Social Work Author Type: Wall Man Type: Care Mgt Initial Assessment Filed: 04/30/2018 11:31 AM Note Text: BEHAVIORAL HEALTH SOCIAL WORK/CARE MANAGEMENT ASSESSMENT AND DISCHARGE PLAN SERVICE DATE: 04/29/2018 SERVICE TIME: 12:10 PM Reason for Admission: Pt was admitted to the unit with increased behaviors. Pt resides at [facility]. It was reported pt has been becoming [...] Important Contacts: Legal Guardian Name: Conrad Govea: [phone] Does the patient/benefits representative consent to contact with the above at this time? Yes Information obtained from: Chart Medical Staff Prior Social Work assessment Legal guardian Referred by: Medical Team Living Arrangements Prior to Admission: Extended/Intermediate Care Facility: [facility] Prior to Admission, Patient was Living with: N/A - Patient From Facility Marital Status: Single Children (including quality of relationship): Patient does not have any children Sexual Orientation: Heterosexual SOCIAL HISTORY Sherita Jurado was born and raised in [place] by his mother. He has 1 brother and 1 sister. He is estranged from his family members. 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 Yes, but there was no admission within the past 30 days. Substance Use and Treatment History: Patient/Cadmium Burner Denies Do special considerations/accommodations need to be made (i.e. preferred language, literacy, gender identity, physical disability such as deaf or blind, etc)? No, Patient/Cadmium Burner Denies Are there practices or beliefs that may affect or influence treatment? No, Patient/Cadmium Burner Denies Patient Strengths/Protective Factors (Minimum of Two): Able to Communicate Needs Legal Guardian FAMILY PSYCHIATRIC HISTORY Patient/Cadmium Burner Denies DISCHARGE RECOMMENDATIONS: Relinkage With Previous Providers Patient/Cadmium Burner Agreeable With Discharge Recommendations At This Time? Yes FREEDOM OF CHOICE EXPLAINED: 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 She stated the healthcare social worker has been trying to talk with the guardian for a while to discuss finding another group home that would be better able to manage pts behaviors but the guardian hasn't returned the social workers phone calls. They really feel pt needs to be placed in a different nursing facility that is able to manage his behaviors. Inquired if the healthcare social worker has completed the Significant Change PAS; she will have the healthcare social worker call back. Spoke with pts guardian to discuss discharge plans. He was already aware pt will need alternative placement. Discussed options. Suggested [facility], [facility], and [facility]. He was agreeable with those options. Will offer pt support and structure and assist with discharge plans. SIGNATURE: BRIELLE Baldwin PATIENT NAME: Sherita Jurado DATE: April 29, 2018 TIME: 12:10 PM NURSING PROG Observed: 04/29/2018 Status: COMPLETED Source: [facility] 11:27 AM CLINIC OTHER CAMPUS REPOSITORY O ID: [id number] Author: Radha (Rn) JOSE Otero Service: Nursing Author Type: Registered Nurse Type: Nursing Progress Note Filed: 04/29/2018 4:42 PM Note Text: Nursing Progress Note Patient Name: Sherita Jurado Patient Location: [place] [address] Daily Note: Patient admitted from [facility] for combative behaviors, disrobing, urinating in [...] HISTORY PHYSICAL Observed: 04/29/2018 Status: COMPLETED Source: [place] 10:50 AM CLINIC OTHER CAMPUS REPOSITORY O ID: [id number] Author: Josse Balderrama Service: Psychiatry Author Type: Physician Type: HANDP Filed: 04/30/2018 9:29 AM Note Text: HISTORY AND PHYSICAL BEHAVIORAL HEALTH SERVICE DATE: 04/29/2018 SERVICE TIME: 10:50 AM IDENTIFYING INFORMATION: Sherita Jurado is a 72 year old disabled male who lives at [facility] in [facility]. REASON FOR ADMISSION: Psychosis and Agitation Subjective HPI: Sherita presents for admission secondary to increased paranoia and psychosis. Per Intake: ? Sherita Jurado is a 72 year old male brought in to [facility] from [facility] by ambulance for increased agitation. Pt has been residing at [facility] since December 24, 2017. Pt has exhibited [...] He has a legal guardian, Barryodalis Govea (employment attorney). ? Pt has been cooperative while in [...] @ the facility Current Therapist: none Current General Doc: none Last Hospitalization: 2017; Total Hospitalizations: 3 [...] cancer- referral made - Obesity - On fci drug therapy - Palpitations - Parkinson disease [...] Unknown SOCIAL HISTORY: Born AND Raised in [place] Education: High school Employment: Disabled. Relationships: The patient currently is single Children: none Current Supports Include: guardian. Legal History: None Yarsanism Affiliations: None FAMILY HISTORY: No known psychiatric [...] From: Patient and guardian SIGNATURE: Diana Casillas APRN.COMMERCIAL TRAILER TRUCK DRIVER PATIENT NAME: Sherita Jurado DATE: April 29, 2018 TIME: 10:50 AM PAGER/CONTACT#: [phone] I saw the patient and have read and reviewed the SUPERVISOR BRAKE REPAIR's note and findings. I have discussed the SUPERVISOR BRAKE REPAIR's findings and plan as documented in the SUPERVISOR BRAKE REPAIR's note. Josse Balderrama MD ALLIED HEALTH Observed: 04/29/2018 Status: COMPLETED Source: [facility] 9:18 AM CLINIC OTHER CAMPUS REPOSITORY HNO ID: [id number] Author: AGUSTÍN Parsons Service: Behavioral Health Author [...] therapy this Am for 30 min in prch he engagde fully in movement exploration a,mirroring, [...] care of your appearance Transportation Came from [facility] GENERAL OBSERVATIONS: Affect: Blunted, Bright and Constricted [...] ED NOTE Observed: 04/29/2018 Status: COMPLETED Source: [place] 3:20 AM [facility] OTHER [place] REPOSITORY HNO ID: [id number] Author: Rosibel SpencerRn) JOSE Baker Service: (none) Author Type: Registered Nurse Type: ED Notes Filed: 04/29/2018 3:29 AM Note Text: [facility] arrived in ED, received pt report, assumed care of pt, pt stable upon departure from ED ED NOTE Observed: 04/28/2018 Status: COMPLETED Source: [place] 8:39 PM [facility] REPOSITORY HNO ID: [id number] Author: Rosibel Watts) Olivia, RN Service: (none) Author Type: Registered Nurse Type: ED Notes Filed: 04/28/2018 8:39 PM Note Text: Pt straight cathed and urine obtianed URINALYSIS Collected: 04/28/2018 Status: F Source: [place] 8:34 PM CLINIC OTHER CAMPUS REPOSITORY TYPE CODE TESTS RESULT OUT OF RANGE REFERENCE UNITS LAB UCOL Yellow Color Yellow LAB [facility] Clear Clarity Clear LAB UGLUC Negative mg/dL Glucose, Urine Negative LAB UBIL Negative Bilirubin, Urine Negative LAB UKET Negative Ketones, Abnormal Urine 15 Alert LAB USPG 1.001-1.029 Specific [place], Ur 1.025 LAB UHGB Negative Abnormal Hemoglobin/Blood, Trace Alert Ur LAB UPH 5.0-8.0 pH 6.5 LAB UPROT Negative mg/dL Protein, Urine Negative LAB UUROB 0.2-1.0 High Urobilinogen 4.0 LAB UNITR Negative Nitrites Negative LAB ULKEST Negative Leukest Negative Performed By: #### UA, UAMIC, UTOX2 #### [facility] [address] [facility] [phone] URINE MICROSCOPIC Collected: 04/28/2018 Status: F Source: [place] (FOR LAB USE ONLY) 8:34 PM CLINIC [...] Performed By: #### UA, UAMIC, UTOX2 #### [facility] [address] [place] [address] TOXICOLOGY SCREEN,UR Collected: 04/28/2018 Status: F Source: [place] 8:34 PM CLINIC OTHER CAMPUS REPOSITORY TYPE [...] on the same specimen through Client Services ([phone]) if contacted within 48 hours of initial testing. [1]Substance Abuse and Mental Health Services Administration (2012). Clinical Drug Testing in Primary Care Technical Assistance Publication Series 32. Department of Health and Human Services, [place], p.10. Performed By: #### UA, UAMIC, UTOX2 #### [facility] [address] [facility] [phone] ED NOTE Observed: 04/28/2018 Status: COMPLETED Source: [place] 7:30 PM [facility] OTHER [place] REPOSITORY HNO ID: [id number] Author: Rosibel SpencerRn) JOSE Baker Service: (none) Author Type: Registered Nurse Type: ED Notes Filed: 04/28/2018 7:47 PM Note Text: Attempted to get a urine sample by straight cath on patient. When undressing patient realized pt was completely saturated in urine and saturated the bed, will attempt to get a urine sample later ED PROV NOTE Observed: 04/28/2018 Status: COMPLETED Source: [place] 5:18 PM [facility] OTHER [place] REPOSITORY HNO ID: [id number] Author: Dolly Choe MD Service: (none) Author Type: Physician Type: ED Provider Notes Filed: 04/28/2018 10:50 PM Note Text: ED Provider Note Patient Name: Sherita Jurado SERVICE DATE: 04/28/18 History Patient presents with: Psychiatric Problem: hx of schizophrenia 72-year-old male, with a history of schizophrenia, presents by squad from [facility] for increased aggression. The patient is nonverbal from his psych disorder. I spoke with his PCP, Dr. Cloud, he states that she is sending him in for increased aggression at physical therapy today and they had to give him Haldol. He has a known history of schizophrenia. His PCP believes he needs transfer for a [facility] psych. History provided by: custodial History limited by: Psychiatric disorder PAST MEDICAL HISTORY Diagnosis Date - Actinic keratosis - Breast lump LT breast; cavernous hemangioma/excised - Dizziness - Epidermoid cyst of skin - Falls - Lipoma of skin forearms and abdomen - Mammogram abnormal suspicious of cancer- referral made - Obesity - On fci drug therapy - Palpitations - Parkinson disease [...] Plan Patient presented to the ED from [facility] for increased aggressive behavior. History of schizophrenia and he is nonverbal at baseline. Evidently today during physical therapy he became aggressive. They had to give him Haldol in order for him to calm down. On arrival here he is calm and cooperative. He shakes his head yes or no. The patient will be transferred for a [facility] psych admission to [place] Additional Tests or Interventions: ECG EKG INTERPRETATION: Ordered and Reviewed Rhythm: Normal sinus rhythm Rate: 61 [place]: Normal axis Intervals: Normal IA interval QRS Complex: Normal ST Segment: Normal ST-T segments QT Interval: Normal Compared with Prior: Interpretation performed by Lindsay Garcia PA-C The patient was TRANSFERRED to: [place] Condition at time of disposition: stable SIGNATURE: IRENA Call (Pa) 04/28/182131 Attending Note I have personally performed a face to face assessment of the patient and have reviewed the PA/SENIOR INSTRUCTOR note. My vernon findings include: History : I did not see this patient but discussed care with Irena and agree with plan. Exam : as above Assessment/Plan : as above Other additions or changes: None Signature: Dolly Choe MD Date: 04/28/2018 Time: 10:49 PM Dolly Choe MD 04/28/18 3910 CBC AND DIFFERENTIAL Collected: 04/28/2018 Status: F Source: [facility] 5:02 PM CLINIC OTHER CAMPUS REPOSITORY TYPE [...] Low Abs Lymph 0.69 LAB AMONO % [place]% 7.1 LAB AAMONO <0.87 k/uL Abs [place] 0.43 LAB AEOS % Eosin% 0.8 LAB AAEOS <0.46 k/uL Abs Eosin 0.05 LAB ABASO % Baso% 1.3 LAB AABASO <0.11 k/uL Abs Baso 0.08 Performed By: #### LESA LAW SALI, KEYONA #### [facility] [address] [facility] [phone] ACETAMINOPHEN Collected: 04/28/2018 Status: F Source: [facility] 5:02 PM CLINIC OTHER CAMPUS REPOSITORY TYPE [...] to 876 and Freddy et al. Arch Early Childhood Lead Teacher Med. 1981. 141:380 to 385). Reference ranges and high/low indicator flags are provided as general guidelines only. The treating physician must determine appropriate target levels/dosing based on the specific clinical situation. Performed By: #### CBCDIFLESA, VENECIA, CMP #### [facility] [address] [facility] [phone] SALICYLATE Collected: 04/28/2018 Status: F Source: [place] 5:02 PM [facility] OTHER CAMPUS REPOSITORY TYPE CODE TESTS RESULT OUT OF REFERENCE UNITS RANGE LAB SALI 3.0-30.0 mg/dL Low Salicylate <1.0 Result Comment: The therapeutic range varies and has been reported to be 3.0 to 10.0 mg/dL for anti pyretic/analgesic conditions and 15.0 to 30.0 mg/dL for anti inflammatory/rheumatic fever conditions. Ranges published by the instrument photonics engineering technologist. Reference ranges and high/low indicator flags are provided as general guidelines only. The treating physician must determine appropriate target levels/dosing based on the specific clinical situation. Performed By: #### CBCDIF, ACETM, VENECIA, CMP #### [facility] [address] [place] [address] COMP METABOLIC PANEL Collected: 04/28/2018 Status: F Source: [place] 5:02 PM [facility] OTHER [place] REPOSITORY TYPE CODE TESTS RESULT OUT OF REFERENCE UNITS RANGE LAB TP 6.3-8.0 g/dL Protein, High Total 8.2 LAB ALB 3.9-4.9 g/dL Albumin 4.2 LAB CA 8.5-10.2 mg/dL Calcium, Total 9.3 LAB TBIL 0.2-1.3 mg/dL Bilirubin, Total 0.8 LAB ALKP 38-113 U/L Alkaline Phosphatase 98 LAB AST 14-40 U/L AST 26 LAB GLU 74-99 mg/dL Low Glucose 71 Result Comment: The [place] Diabetes Association (ADA) provides guidance for cutoff [...] Standards of Medical Care in Diabetes 2016, [place] Diabetes Association. Diabetes Care. 2016.39(Suppl 1). LAB [...] By: #### CBCDIF, ACETM, SALI, CMP #### [facility] [address] [facility] [phone] ED NOTE Observed: 04/28/2018 Status: COMPLETED Source: [place] 4:55 PM [facility] REPOSITORY HNO ID: [id number] Author: Sharlene SpencerRn) Herlinda RN Service: (none) Author Type: Registered Nurse Type: ED Notes Filed: 04/28/2018 4:55 PM Note Text: Patient belongings secured and bagged. ED NOTE Observed: 04/28/2018 Status: COMPLETED Source: [place] 4:55 PM [facility] REPOSITORY HNO ID: [id number] Author: Sharlene SpencerRn) Herlinda, RN Service: (none) [...] ED NOTE Observed: 04/28/2018 Status: COMPLETED Source: [place] 4:52 PM [facility] OTHER CAMPUS REPOSITORY HNO ID: [id number] Author: Sharlene Watts) JOSE Pate Service: (none) Author Type: Registered Nurse Type: ED Notes Filed: 04/28/2018 4:55 PM Note Text: Patient presents to the ED from [facility] with aggressive behavior. Patient is alert to slef with hx of schizophrenia and parkinsons. Patient has dysphasia as well. Patient was able to follow commands and ambulate from EMS cot to bed. ED NOTE Observed: 04/28/2018 Status: COMPLETED Source: [facility] 4:50 PM CLINIC OTHER CAMPUS REPOSITORY HNO ID: [id number] Author: Lis SpencerRn) JOSE Rowe Service: (none) Author Type: Registered Nurse Type: ED Notes Filed: 04/28/2018 4:50 PM Note Text: Bed: ED-09 Expected date: Expected time: Means of arrival: Comments: [place] ELECTROENCEPHALOGRAM Observed: 03/29/2018 Status: F Source: [place] 2:03 PM [facility] REPOSITORY [facility] Pulmonary Services/Neurology [address] [place] [address] MR#: [id number] Acct: [id number] Name: SHERITA JURADO Rep #: [id number] : 1945 72 From: Eleazar Milligan MD Referring Dr: Cristian FONTENOT, [facility] Status: REG REF Ordering Dr: Date: Location: [facility] Sex: M C - Electroencephalogram Date of [...] movements. The movements are eliminated when the voip network technician intervenes. There are no lateralizing or epileptiform changes. Photic stimulation generates a normal symmetric driving response in the posterior leads. Impression: No epileptiform abnormalities. Bilateral arm tremor is noted without electrographic correlate. 03/29/18 1403 <Electronically signed by Eleazar Milligan MD> Date Eleazar Milligan MD CC: Joel Foster MD; Kathryn Cloud; Eleazar Milligan MD; Kathryn Cloud MD Date Dictated: 03/29/181 Date Transcribed: 03/29/181320 Belt Polisher: NF Signed BRAIN WITHOUT Observed: 03/27/2018 Status: F Source: [place] 6:53 AM [facility] REPOSITORY [facility] Imaging Services [address] [place] [address] Brain without Contrast MR#: [id number] Acct: [id number] Name: SHERITA JURADO Rep #: [id number] : 1945 M 72 From: Balaji Brown PCP: Kathryn Cloud Status: REG CLI Study: Brain without Contrast Date of Exam: 03/27/18 Exam# [id number] Ordering Dr: Chad Foster MD STUDY: MRI [...] , CC: Joel Foster MD; Kathryn Cloud Belt Polisher: Signed ED NOTE Observed: 03/11/2018 Status: COMPLETED Source: [place] 3:22 PM CLINIC MAIN CAMPUS REPOSITORY HNO ID: [id number] Author: Ariella (Rn) JOSE Elder Service: Emergency Medicine Author Type: Registered Nurse Type: ED Notes Filed: 03/11/2018 3:45 PM Note Text: Patient alert and oriented, d/c into caregivers care. Both patient and caregiver verbalize d/c instructions ED PROV NOTE Observed: 03/11/2018 Status: COMPLETED Source: [place] 3:13 PM [facility] [place] REPOSITORY HNO ID: [id number] Author: Eusebio Xiao DO Service: Emergency Medicine [...] cancer- referral made - Obesity - On fci drug therapy - Palpitations - Parkinson disease [...] ED NOTE Observed: 03/11/2018 Status: COMPLETED Source: [place] 3:08 PM [facility] REPOSITORY HNO ID: [id number] Author: rAiella SpencerRn) Jael RN Service: Emergency Medicine Author Type: Registered Nurse Type: ED Notes Filed: 03/11/2018 3:08 PM Note Text: Left ear cleaned, bacitracin applied, bandaged applied. Patient tolerated well, care givers at bedside ED NOTE Observed: 03/11/2018 Status: COMPLETED Source: [place] 2:32 PM [facility] REPOSITORY HNO ID: [id number] Author: Jacob SpencerRn) Xander RN Service: Emergency Medicine Author Type: Registered Nurse Type: ED Notes Filed: 03/11/2018 2:33 PM Note Text: Pt slipped off toilet while drying his feet hitting his head on corner causing laceration to left ear. Care givers and pt denies any LOC, headache, neck or back pain. ED NOTE Observed: 02/01/2018 Status: COMPLETED Source: [place] 1:13 PM [facility] REPOSITORY HNO ID: [id number] Author: Deirdre SpencerRn) JOSE Love Service: Emergency Medicine Author Type: Registered Nurse Type: ED Notes Filed: 02/01/2018 1:13 PM Note Text: Pt leaves dept in [facility] w/c ED NOTE Observed: 02/01/2018 Status: COMPLETED Source: [place] 12:46 PM [facility] REPOSITORY HNO ID: [id number] Author: Jeanne SpencerRn) JSOE James Service: Emergency Medicine Author Type: Registered Nurse Type: ED Notes Filed: 02/01/2018 1:29 PM Note Text: Patient has been calm,cooperative,drowsy and pleasant while at ED. No seizure activity noted. He does lay in bed and eyes have rolled back in the head appearance , but when spoken to the patient immediatly responds. ED NOTE Observed: 02/01/2018 Status: COMPLETED Source: [place] 12:45 PM [facility] REPOSITORY HNO ID: [id number] Author: Jeanne James RN Service: Emergency Medicine Author Type: Registered Nurse Type: ED Notes Filed: 02/01/2018 12:45 PM Note Text: Martha Govea the patients guardian was notified via voicemail that patient would be getting transferred. ED NOTE Observed: 02/01/2018 Status: COMPLETED Source: [place] 12:17 PM [facility] REPOSITORY HNO ID: [id number] Author: Kamila Pinedo RN Service: Emergency Medicine Author Type: Registered Nurse Type: ED Notes Filed: 02/01/2018 12:18 PM Note Text: [facility] ETA 1300 for transport back to [facility] ED NOTE Observed: 02/01/2018 Status: COMPLETED Source: [place] 11:59 AM [facility] REPOSITORY HNO ID: [id number] Author: Jeanne James RN Service: Emergency Medicine Author Type: Registered Nurse Type: ED Notes Filed: 02/01/2018 11:59 AM Note Text: Patient given some gingerale. He has drank some sips and has tolerated well. ED NOTE Observed: 02/01/2018 Status: COMPLETED Source: [place] 11:26 AM [facility] REPOSITORY HNO ID: [id number] Author: Jeanne James RN Service: Emergency Medicine Author Type: Registered Nurse Type: ED Notes Filed: 02/01/2018 11:34 AM Note Text: Patient c/o dizziness with sitting to standing. Patient tolerated procedure well. LACTIC ACID Collected: 02/01/2018 Status: F Source: [facility] 11:22 AM HEALTH SYSTEM REPOSITORY TYPE CODE TESTS RESULT OUT OF REFERENCE UNITS RANGE LAB LLA(LOINC) 0.4-2.0 mEq/L Lactic acid 1.3 Performed By: #### LLA #### [place] [address] ED NOTE Observed: 02/01/2018 Status: COMPLETED Source: [place] 11:02 AM [facility] REPOSITORY HNO ID: [id number] Author: Jeanne SpencerRn) JOSE James Service: Emergency Medicine Author Type: Registered Nurse Type: ED Notes Filed: 02/01/2018 11:04 AM Note Text: Guardian in ED. His name is Martha Govea-Grey persaud [facility]. Phone number is [phone]. He asks we call with update when a plan of care is known. ED NOTE Observed: 02/01/2018 Status: COMPLETED Source: [place] 10:30 AM [facility] REPOSITORY HNO ID: [id number] Author: Deirdre SpencerRn) JOSE Love Service: Emergency Medicine Author Type: Registered Nurse Type: ED Notes Filed: 02/01/2018 10:31 AM Note Text: Pt resting in bed, denies needs at this time, resp even and unlabored CT HEAD W/O CONTRAST Observed: 02/01/2018 Status: F Source: [facility] 10:08 AM HEALTH SYSTEM REPOSITORY Performed [...] 1 VIEW Observed: 02/01/2018 Status: F Source: [facility] 10:07 AM [facility] REPOSITORY Performed at [...] ED NOTE Observed: 02/01/2018 Status: COMPLETED Source: [place] 9:47 AM [facility] REPOSITORY HNO ID: [id number] Author: Jeanne (Rn) JOSE James Service: Emergency Medicine Author Type: Registered Nurse Type: ED Notes Filed: 02/01/2018 9:54 AM Note Text: Patient transported to radiology Observed: 02/01/2018 Status: F Source: [facility] BLOOD 9:47 AM HEALTH SYSTEM REPOSITORY Test performed at [facility] No growth Performed By: #### C_BLO #### [facility] [address] [place] [address] ED PROV NOTE Observed: 02/01/2018 Status: COMPLETED Source: [place] 9:21 AM [facility] REPOSITORY HNO ID: [id number] Author: Cristobal Brown MD Service: Emergency Medicine Author Type: Physician Type: ED Provider Notes Filed: 02/01/2018 12:02 PM Note Text: ED Provider Note Patient Name: Sherita Jurado SERVICE DATE: 02/01/18 History Patient presents with: Seizures: Per [facility] Sherita Jurado is a 72 year old male with history of psychiatric illness who presents with Seizures (Per [facility]). Patient took nothing for this prior to arrival. - Symptoms began 1 hours prior to arrival. - Severity: mild - Timing: intermittent - Quality: shaking, increased tremor. No LOC . Pt complains of nausea - Seizures (Per [facility]) is exacerbated by nothing. - Seizures (Per [facility]) is not exacerbated by movement palpation. - Symptoms are associated with nausea and vomiting. - Symptoms are not associated with trauma, loc, post ictal state. - Improved by spontaneous. - Pt at ID. Recent admission for schizophrenia. Movement disorder And [...] cancer- referral made - Obesity - On fci drug therapy - Palpitations - Parkinson disease [...] Resp 18 Ht 5' 10[per 01/22/18 from [facility][ (1.78m) Wt 160 lb (72.6kg) SpO2 97% [...] Reviewed Rhythm: Normal sinus rhythm Rate: 59 [place]: Normal axis Intervals: Normal IA interval QRS Complex: Normal ST Segment: Normal [...] ED NOTE Observed: 02/01/2018 Status: COMPLETED Source: [place] 9:18 AM [facility] [place] REPOSITORY HNO ID: [id number] Author: Jeanne Watts) JOSE James Service: Emergency Medicine Author Type: Registered Nurse Type: ED Notes Filed: 02/01/2018 9:19 AM Note Text: Patient is drowsy appearing, easily responds to voice, responds to commands and is calm. Occasional twitching noted at face and hands. ED NOTE Observed: 02/01/2018 Status: COMPLETED Source: [place] 9:17 AM [facility] [place] REPOSITORY HNO ID: [id number] Author: Jeanne Watts) JOSE James Service: Emergency Medicine Author Type: Registered Nurse Type: ED Notes Filed: 02/01/2018 9:18 AM Note Text: EKG at bedside EKG (AK,AV,EU,FV,HL,ELISSA,MM,SP) Observed: Status: F Source: [place] 02/01/2018 9:17 AM [facility] OTHER CAMPUS REPOSITORY NAME : SHERITA JURADO PID : [id number] : 1945 Gender : Male Race : Unknown ORD : [id number] Procedure Date : Feb 01 2018 09:17 [...] ms QTC Calculation(Bezet) : 451 ms P [place] : 46 degrees R [place] : -2 degrees T [place] : 40 degrees Test Reason : Weakness Location : 150 : [place] ED Overread By : MD Alex,Maximilian Woods Editted By : MD Johnson Vinayak A. Referred By : CRISTOBAL BROWN Acquired by : Radha Herrera ED NOTE Observed: 02/01/2018 Status: COMPLETED Source: [place] 9:11 AM [facility] REPOSITORY HNO ID: [id number] Author: Jeanne SpencerRn) JOSE James Service: Emergency Medicine Author Type: Registered Nurse Type: ED Notes Filed: 02/01/2018 9:11 AM Note Text: Patient given urinal . ED NOTE Observed: 02/01/2018 Status: COMPLETED Source: [place] 9:10 AM [facility] REPOSITORY HNO ID: [id number] Author: Jeanne Watts) JOSE James Service: Emergency Medicine Author Type: Registered Nurse Type: ED Notes Filed: 02/01/2018 9:10 AM Note Text: Patient informed: the name of medication, why we are giving it, possible side effects, what they may expect to feel, and was offered a chance to ask questions, prior to the administration of saline and zofran. HEMOGRAM/DIFF Collected: 02/01/2018 Status: F Source: [facility] 9:00 AM HEALTH SYSTEM REPOSITORY TYPE [...] 0.95 LAB LMONN(LOIN 0.20-1.00 thou/cmm C) Abs. [place] 0.26 LAB LEOSN(LOIN 0.00-0.41 thou/cmm C) Abs. Eosin 0.08 LAB LBASN(LOIN 0.00-0.08 thou/cmm C) Abs. Baso 0.04 Performed By: #### LCBCD #### [place] [address] TROPONIN I Collected: 02/01/2018 Status: F Source: [facility] 9:00 HEALTH SYSTEM REPOSITORY TYPE CODE TESTS RESULT OUT OF REFERENCE UNITS RANGE LAB LTRP(LOINC) <=0.07 ng/mL Troponin I <0.03 Performed By: #### LTRP #### [place] [address] COMPREHENSIVE PANEL Collected: 02/01/2018 Status: F Source: [facility] 9:[address] [place] [address] SYSTEM REPOSITORY TYPE CODE TESTS RESULT OUT OF REFERENCE UNITS RANGE LAB STEAM TRAP WORKER(LOINC) 136-145 mEq/L Low Sodium Blood 132 LAB [...] 15 Ratio Performed By: #### LP14 #### [place] [address] LIPASE BLOOD Collected: 02/01/2018 Status: F Source: [facility] 9:00 AM HEALTH SYSTEM REPOSITORY TYPE CODE TESTS RESULT OUT OF REFERENCE UNITS RANGE LAB LLIP(LOINC) 73-393 U/L Lipase Blood 170 Performed By: #### LLIP #### [place] [address] MDRD EGFR Collected: 02/01/2018 Status: F Source: [facility] 9:00 AM HEALTH SYSTEM REPOSITORY TYPE CODE TESTS RESULT OUT OF RANGE REFERENCE UNITS LAB LGFRF(LOINC >60mL/min/1.73m ) 2 eGFR >60 Result Comment: If the patient is , multiply the result by 1.210. Performed By: #### LGFR #### [place] [address] LACTIC ACID Collected: 02/01/2018 Status: F Source: [facility] 9:00 AM HEALTH SYSTEM REPOSITORY TYPE CODE TESTS RESULT OUT OF REFERENCE UNITS RANGE LAB LLA(LOINC) 0.4-2.0 mEq/L High alert Lactic acid 2.7 Performed By: #### LLA #### [place] [address] Observed: 02/01/2018 Status: F Source: [facility] CULT BLOOD 9:00 AM HEALTH SYSTEM REPOSITORY Test performed at [facility] No growth Performed By: #### C_BLO #### [facility] [address] [place] [address] ED NOTE Observed: 02/01/2018 Status: COMPLETED Source: [place] 8:54 AM [facility] REPOSITORY HNO ID: [id number] Author: Jeanne SpencerRn) JOSE James Service: Emergency [...] NURSING PROG Observed: 01/30/2018 Status: COMPLETED Source: [place] 8:21 PM [facility] REPOSITORY HNO ID: [id number] Author: Cynthia Watts) JOSE Kirby Service: (none) Author Type: Registered Nurse Type: Nursing Progress Note Filed: 01/30/2018 8:22 PM Note Text: Nursing Progress Note Patient Name: Sherita Jurado Patient Location: [place] [address] Daily Note: 2020 Patient discharged to the facility in stable condition. This note was completed by: Cynthia Kirby RN CNDS Observed: 01/30/2018 Status: COMPLETED Source: [place] 8:20 PM [facility] REPOSITORY HNO ID: [id number] Author: Josse Balderrama Service: Psychiatry Author Type: [...] HOSPITALIZATION: No procedures performed HOSPITAL COURSE: Mr. Jruado was admitted due to his behaviors a [...] PATIENT CONDITION AT DISCHARGE: Stable DISCHARGE DISPOSITION: Long-Term Facility COMPLICATIONS: None At this time the [...] Row Name Admission (Discharged) from 01/23/2018 in [place]- 4th Floor Behavioral Medicine Psychiatry Follow-Up Appointment Psychiatrist Name Follow-up with psychiatrist at facility Discharge Disposition Discharge Disposition Intermediate Care Long-Term (A-L) Long-Term Referral Information Long-Term Name [facility] Address AND Phone # [phone] [place] [address] Guardian/Surrogate Decision Maker Name Conrad Govea The [...] 10, 2018 TIME: 3:23 PM PAGER/CONTACT #: [phone] CONSULT PROG Observed: 01/30/2018 Status: COMPLETED Source: [place] 4:05 PM CLINIC OTHER CAMPUS REPOSITORY HNO ID: [id number] Author: German Adkins Service: Neurology General Author [...] Adkins MD Staff Physician [facility] THERAPY NT Observed: 01/30/2018 Status: COMPLETED Source: [place] 3:43 PM [facility] REPOSITORY HNO ID: [id number] Author: Katie SpencerOt/LJulio César Garcia Service: Occupational Therapy Author Type: Occupational Therapist Type: Therapy (PT/OT/Speech/Resp) Filed: 01/30/2018 3:43 PM Note Text: OCCUPATIONAL THERAPY MISSED VISIT SERVICE DATE: 01/30/2018 SERVICE TIME: 1452 to 1452 ROOM: [place] [address] Attempted Treatment. Patient not seen due to Other: See Comment (Patient attending group therapy). Will attempt to see patient later if schedule permits. SIGNATURE: Katie Garcia OT/L PATIENT NAME: Sherita Jurado DATE: January 30, 2018 TIME: 3:43 PM NURSING PROG Observed: 01/30/2018 Status: COMPLETED Source: [place] 11:13 AM [facility] REPOSITORY HNO ID: [id number] Author: Sasha Elam RN Service: Nursing Author Type: Registered Nurse Type: Nursing Progress Note Filed: 01/30/2018 11:19 AM Note Text: Nursing Progress Note Patient Name: Sherita Jurado Patient Location: [place] [address] Daily Note: patient is alert and oriented x 2, disoriented to time, took medications without encouragement, is scheduled for discharge today at 8 pm to [facility], behaviors continue to be appropriate, covers himself when laying in bed nude, no complaints of discomfort This note was completed by: Sasha Elam RN [facility] Observed: 01/30/2018 Status: COMPLETED Source: [place] 9:25 AM CLINIC OTHER CAMPUS REPOSITORY [facility] ID: [id number] Author: AGUSTÍN Yu Service: Music Therapy Author [...] came at end and stood outside peers' pechanga? 01/28/18 DMT bedside check-in; progress, feelings, hopes [...] patient to be discharged from hospital to [facility]. Following discharge, the pt would benefit from continued attendance in structured therapy groups including MT and DMT to: ? Maintain positive social structures ? Express emotions and experiences related to physical and mental health ? Maintain constructive leisure activities and coping skills Vernon DMT: Dance Movement Therapy MT: Music Therapy DR: Dining Room SW: Wall Man ET: Expressive Therapy RT: Recreational Therapy SIGNATURE: Rosibel Aguilar MT- PATIENT NAME: Sherita Jurado DATE: January 30, 2018 TIME: 9:25 AM PAGER/CONTACT #: None NURSING PROG Observed: 01/30/2018 Status: COMPLETED Source: [place] 12:58 AM [facility] OTHER CAMPUS REPOSITORY HNO ID: [id number] Author: Michelle (Rn) JOSE Lozada Service: (none) Author Type: Registered Nurse Type: Nursing Progress Note Filed: 01/30/2018 5:20 AM Note Text: Nursing Progress Note Patient Name: Sherita Jurado Patient Location: [place] [address] Daily Note: Patient is AANDOx3. No [...] NURSING PROG Observed: 01/29/2018 Status: COMPLETED Source: [place] 7:20 PM [facility] OTHER CAMPUS REPOSITORY HNO ID: [id number] Author: Sasha Elam RN Service: Nursing Author Type: Registered Nurse Type: Nursing Progress Note Filed: 01/29/2018 7:24 PM Note Text: Nursing Progress Note Patient Name: Sherita Jurado Patient Location: [place]* Daily Note: patient discharge postponed until tomorrow due to transportation difficulties, this nurse notified patient, patient asked if this underwriter solicitation director was sure because he thought he would [...] CASE MANAGEM Observed: 01/29/2018 Status: COMPLETED Source: [place] 3:58 PM CLINIC OTHER CAMPUS REPOSITORY O ID: [id number] Author: Silva Bobby (Sw) Service: Social Work Author Type: Wall Man Type: Care Mgt Progress Note Filed: 01/29/2018 4:01 PM Note Text: BEHAVIORAL HEALTH SOCIAL WORK DISCHARGE NOTE SERVICE DATE: 01/29/2018 SERVICE TIME: 3:59 PM PATIENT'S DISCHARGE PLAN: Discharge Disposition Discharge Disposition: Intermediate Care Long-Term (A-L) Long-Term Referral Information Long-Term Name: [facility] Address AND Phone #: [phone] [place] [address] [facility] Referral Information Intermediate Homeless Snf Referral Information Crisis Stabilization Unit Acute Care Facility Referral Information Assisted Living Facility Referral Information Home Care Agency Referral Information Shuttle Operator Guardian Name: Conrad Govea Psychiatry Follow-Up Appointment Psychiatrist Name: Follow- up with psychiatrist at facility Medical Follow-Up Appointment Counselor Referral Information Case Management Referral Information Family Psychoeducational ([facility]) Follow-Up Appointment [facility] Chemical Dependency Care - Intensive Outpatient/Partial Hospital Program Behavioral Health Care - Intensive Outpatient/Partial Hospital Program ECT Treatment/Follow-Up Additional Discharge Information 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 [facility]-owned/affiliated facilities and agencies have been identified Patient/Cadmium Burner Given/Explained Medicare Discharge Notice (IM letter): Yes (Date and Time): 01/29/18 TRANSPORTATION ARRANGEMENTS: Mode of Transportation: Ambulance Transportation Agency and Phone #: Zay Rodriguez [phone] . Date of Trip: 01/30/18 at 8pm Type of Service: BLS Non-emergency Is Patient Medicaid Pending: No Discussion of financial coverage occurred with Guardian . Hand Stitcher Location: [facility] Destination: [facility] Financial Care Management Responsibility: None PRESCRIPTIONS FILLED PRIOR TO DISCHARGE: No, patient discharged to group home ADDITIONAL NOTES: Spoke with pts guardian to inform of the discharge time. CCP to be faxed on the day of discharge to the facility. SIGNATURE: BRIELLE Baldwin PATIENT NAME: Sherita Jurado DATE: January 29, 2018 TIME: 3:59 PM CASE MANAGEM Observed: 01/29/2018 Status: COMPLETED Source: [place] 1:44 PM CLINIC OTHER CAMPUS REPOSITORY HNO ID: [id number] Author: Silva Bobby (Sw) Service: Social Work Author Type: Wall Man Type: Care Mgt Progress Note Filed: 01/29/2018 [...] NURSING PROG Observed: 01/29/2018 Status: COMPLETED Source: [place] 11:21 AM [facility] REPOSITORY HNO ID: [id number] Author: Sasha Watts) JOSE Elam Service: Nursing Author Type: Registered Nurse Type: Nursing Progress Note Filed: 01/29/2018 11:23 AM Note Text: Nursing Progress Note Patient Name: Sherita Jurado Patient Location: [place] [address] Daily Note: patient is due to discharge today, patient is aware, he is appropriate with interactions, up to dining room for breakfast, currently attending group, took medications this am with little encouragement This note was completed by: Sasha Elam RN PROGRESS Observed: 01/29/2018 Status: COMPLETED Source: [place] 9:56 AM [facility] REPOSITORY HNO ID: [id number] Author: Vikram Washington Service: General Internal Medicine [...] 29, 2018 TIME: 9:56 AM PAGER/CONTACT #: [phone] THERAPY NT Observed: 01/29/2018 Status: COMPLETED Source: [place] 8:46 AM CLINIC OTHER CAMPUS REPOSITORY HNO ID: [id number] Author: Shadia Lucas Service: Physical Therapy Author Type: Plating Tank Operator Type: Therapy (PT/OT/Speech/Resp) Filed: 01/29/2018 8:54 AM Note Text: Attestation signed by Jesusita SpencerPtJulio César Lucero at 01/29/2018 10:17 AM I reviewed and agree with the documentation corresponding to this therapy visit. SIGNATURE: Jesusita Lucero, PT DATE: January 29, 2018 TIME: 10:17 AM Physical Therapy Treatment SERVICE DATE: 01/29/2018 SERVICE TIME: 0800 to 1626 ROOM: [place] [address] Recommended Discharge Disposition: Home (Return to assisted, no follow up PT anticipated.) Anticipated Discharge [...] gait and mobility-other Interventions Provided: Therapeutic Exercise (64796);Gait Training (87468) Therapeutic Exercise (18248) Treatment Minutes: 10 1 unit Skilled Intervention(s): Instruction in therapeutic exercise seated BLE x 20 reps each for strengthening - AP, GS, MIP, LAQ, Hip ABD, Hip ADD Standing at sink BLE hamstring curls x 20 Verbal and tactile cuing provided for proper form, pacing, and purpose. Pt performs exercises too fast with cues to slow down, good carryover noted. Gait Training (39676) Treatment Minutes: 13 1 unit Skilled Intervention(s): [...] Home Environment Patient Lives With: Facility Care (assisted) Assistance Available: 24 Hour Entry To Home: [...] NURSING PROG Observed: 01/29/2018 Status: COMPLETED Source: [place] 6:48 AM [facility] OTHER CAMPUS REPOSITORY O ID: [id number] Author: Jamila (Rn) JOSE Barrett Service: Nursing Author Type: Registered Nurse Type: Nursing Progress Note Filed: 01/29/2018 6:58 AM Note Text: Nursing Progress Note Patient Name: Sherita Jurado Patient Location[place] [address] [place] Daily Note:Pt was in bed, resting comfortably. [...] in the hallway or on the floor. Landing Support Specialist Gabriela WILBURN and WINSTON Carver were notified. Pt was assisted back to bed. No s/s of pain or distress. Pt slept intermitantly. This note was completed by: Jamila Barrett RN CBC AND DIFFERENTIAL Collected: 01/29/2018 Status: F Source: [place] 5:46 AM CLINIC OTHER CAMPUS REPOSITORY TYPE [...] k/uL Abs Lymph 1.72 LAB AMONO % [place]% 6.5 LAB AAMONO <0.87 k/uL Abs [place] 0.53 LAB AEOS % Eosin% 1.3 LAB AAEOS <0.46 k/uL Abs Eosin 0.11 LAB ABASO % Baso% 0.4 LAB AABASO <0.11 k/uL Abs Baso 0.03 LAB DTYP DTYPE Auto Diff BASIC METABOLIC PANL Collected: 01/29/2018 Status: F Source: [place] 5:46 AM CLINIC OTHER CAMPUS REPOSITORY TYPE [...] THERAPY NT Observed: 01/28/2018 Status: COMPLETED Source: [place] 4:32 PM CLINIC OTHER CAMPUS REPOSITORY HNO ID: [id number] Author: Jesusita (Pt) Holter Service: Physical Therapy Author Type: Physical Therapist Type: Therapy (PT/OT/Speech/Resp) Filed: 01/28/2018 4:41 PM Note Text: Physical Therapy Treatment SERVICE DATE: 01/28/2018 SERVICE TIME: 1603 to 1626 ROOM: [place] [address]1 Recommended Discharge Disposition: Home (Return to assisted, no follow up PT anticipated.) Anticipated Discharge [...] gait and mobility-other Interventions Provided: Therapeutic Exercise (20191);Therapeutic Activity (60233);Gait Training (04060) Therapeutic Exercise (75124) Treatment Minutes: 8 1 unit Skilled Intervention(s): Instruction in therapeutic exercise Standing BLE ther ex: ankle pf x 20, MIP x 10, forward leg raises x 10, mini-squats x 10, hip AB x 10, hip ext x 10, knee flex x 10; Verbal and tactile cuing provided Therapeutic Activity (74260) Treatment Minutes: 10 0 units Skilled Intervention(s): Education with patient: reviewed POC, safety while in hospital; reviewed orientation and current situation Pt performed dyn standing balance activity with contact guard of bilateral hand held assist: Side stepping to R and to L for [address] Amb backwards for 50 feet Gait Training (60183) Treatment Minutes: 5 1 unit Skilled Intervention(s): [...] CODE: PT 6 Clicks Score: 22 (01/28/18 6573) Mobility: Walking and Moving Around Current Status [...] Home Environment Patient Lives With: Facility Care (assisted) Assistance Available: 24 Hour Entry To Home: [...] CASE MANAGEM Observed: 01/28/2018 Status: COMPLETED Source: [place] 3:22 PM CLINIC OTHER CAMPUS REPOSITORY HNO ID: [id number] Author: Silva Bobby (Sw) Service: Social Work Author Type: Wall Man Type: Care Mgt Progress Note Filed: 01/28/2018 3:24 PM Note Text: BEHAVIORAL HEALTH SOCIAL WORK PROGRESS NOTE SERVICE DATE: 01/28/2018 SERVICE TIME: 3:22 PM Spoke with pts guardian, Conrad, to discuss discharge plans. Informed him to pt would be discharged tomorrow back to [facility]. Updated information sent to facility and they will accept pt back. Guardian in agreement with discharge plans. Will continue to offer pt support and structure and assist with discharge plans. SIGNATURE: BRIELLE Baldwin PATIENT NAME: Sherita Jurado DATE: January 28, 2018 TIME: 3:22 PM PROGRESS Observed: 01/28/2018 Status: COMPLETED Source: [place] 11:49 AM CLINIC OTHER CAMPUS REPOSITORY HNO ID: [id number] Author: Josse Balderrama Service: Psychiatry Author Type: [...] January 28, 2018 TIME: 11:49 AM PAGER/CONTACT#: [phone] I saw the patient and have read and reviewed the SUPERVISOR BRAKE REPAIR's note and findings. I have discussed the SUPERVISOR BRAKE REPAIR's findings and plan as documented in the SUPERVISOR BRAKE REPAIR's note. Josse Balderrama MD NURSING PROG Observed: 01/28/2018 Status: COMPLETED Source: [place] 10:19 AM [facility] OTHER CAMPUS REPOSITORY HNO ID: [id number] Author: Magdalena Pace RN Service: (none) Author Type: Registered Nurse Type: Nursing Progress Note Filed: 01/28/2018 3:28 PM Note Text: Nursing Progress Note Patient Name: Sherita Jurado Patient Location: [address]/ [place] Daily Note:refuses groups, preoccupied with a question of internal stimulation. Reclusive, behavioral controls intact thus far. No barricading and/or slamming doors. This note was completed by: Magdalena Pace RN NUTRITION Observed: 01/28/2018 Status: COMPLETED Source: [place] 9:48 AM CLINIC OTHER CAMPUS REPOSITORY [facility] ID: [id number] Author: Tanya Clements Service: Nutrition Therapy Author [...] a 72 year old male?brought in to [place]?ED from Long-Term?by caregiver??for behavioral problems.Pt has hx.of Schizophrenia, Parkinsons,falls,tremors [...] during interview. Tox screen is negative. Pts ID-[facility] Walker requests pt be evaluated for medication [...] most recent being on September 12 at [facility]. Patient also has been gone going to neurology movement disorder specialist. PAST MEDICAL HISTORY Diagnosis Date - Actinic keratosis - Breast lump LT breast; cavernous hemangioma/excised - Dizziness - Epidermoid cyst of skin - Falls - Lipoma of skin forearms and abdomen - Mammogram abnormal suspicious of cancer- referral made - Obesity - On [facility] drug therapy - Palpitations - Parkinson disease [...] determine - review of RD notes from [place] last month reveal suboptimal intake Met with [...] Resting Metabolic Rate: 1479 Estimated kilocalorie needs: 8795-2693 kilocalories determined by 25-30 kcal/kg Estimated protein needs: 87-115 grams determined by 1.2-1.6 g/kg Dosing weight Estimated fluid needs: 8417-9846 milliliters based on 1 mL per kcal [...] January 28, 2018 TIME: 9:48 AM PAGER: [phone] NURSING PROG Observed: 01/28/2018 Status: COMPLETED Source: [place] 9:22 AM CLINIC OTHER CAMPUS REPOSITORY HNO ID: [id number] Author: Magdalena Pace, RN Service: (none) Author Type: Registered Nurse Type: Nursing Progress Note Filed: 01/28/2018 9:34 AM Note Text: Nursing Progress Note Patient Name: Sherita Jurado [place] Daily Note:A+Ox2, affect blunted, mood euthymic, conversation impoverished. Cooperative with medications and exhibiting less tremors. Seclusive to room other than for meals. Assembler Insulator to see pt. Good eye contact, ate well, no SOB, no significant pain. Guarded, denies hallucinations and no delusions voiced as of yet. No eye darting, preoccupied though. Able to answer questions clearly yet with 1-2 word responses. In no acute distress, safety measures taken. This note was completed by: Magdalena Pace RN NURSING PROG Observed: 01/28/2018 Status: COMPLETED Source: [place] 2:14 AM [facility] OTHER CAMPUS REPOSITORY O ID: [id number] Author: Cynthia Watts) JOSE Kirby Service: (none) Author Type: Registered Nurse Type: Nursing Progress Note Filed: 01/28/2018 5:56 AM Note Text: Nursing Progress Note Patient Name: Sherita Jurado Patient [place] Daily Note: 1955 Patient was awake, resting [...] CONSULT PROG Observed: 01/27/2018 Status: COMPLETED Source: [place] 5:25 PM [facility] REPOSITORY HNO ID: [id number] Author: German Adkins Service: Neurology General Author [...] Adkins MD Staff Physician [facility] THERAPY NT Observed: 01/27/2018 Status: COMPLETED Source: [place] 3:52 PM [facility] REPOSITORY HNO ID: [id number] Author: Silva Melendez/ERIK Dallas Service: Occupational Therapy Author Type: Motorcycle Repairer Type: Therapy (PT/OT/Speech/Resp) Filed: 01/27/2018 3:59 PM Note Text: Attestation signed by Kelsey Gong at 01/27/2018 4:53 PM I reviewed and agree with the documentation corresponding to this therapy visit. SIGNATURE: Kelsey Gong, OTR/L DATE: January 27, 2018 TIME: 4:52 PM Occupational Therapy Treatment SERVICE DATE: 01/27/2018 SERVICE TIME: 1520 to 1543 [address]: [address] Recommended Discharge Disposition: Home (to prior assisted) Anticipated Discharge Needs: Physical Assist at Home [...] Patient /Caregiver Goals: Go Home (return to assisted) Goals for Plan of Care: Upper Body [...] on feet Interventions Provided: Self Custodial Management (00166) Self Custodial Management (15414) Treatment Minutes: 23 2 units Skilled Intervention(s): Nursing approved of treatment session. Pt sleeping in bed when CAMILO entered room but easy to awaken. Pt cooperative and willing to participate in OT session. Pt was lying very close to EOB when CAMILO entered room, education for safety. Provided instruction, cuing and facilitation for upper body dressing: don wool puller shirt. Provided instruction, cuing and facilitation for [...] Home Environment Patient Lives With: Facility Care (assisted) Assistance Available: 24 Hour Entry To Home: [...] balance) Dressing Upper Body Set Up (don wool puller shirt) Dressing Lower Body Contact Guard Assistance [...] PM PROGRESS Observed: 01/27/2018 Status: COMPLETED Source: [place] 12:36 PM CLINIC OTHER CAMPUS REPOSITORY O ID: [id number] Author: Vikram Washington Service: General Internal Medicine [...] 27, 2018 TIME: 12:36 PM PAGER/CONTACT #: [phone] THERAPY NT Observed: 01/27/2018 Status: COMPLETED Source: [place] 11:55 AM CLINIC OTHER CAMPUS REPOSITORY HNO ID: [id number] Author: Po Latif Service: Physical Therapy Author Type: Plating Tank Operator Type: Therapy (PT/OT/Speech/Resp) Filed: 01/27/2018 11:59 AM Note Text: Attestation signed by Jesusita SpencerPt) Jazmine at 01/27/2018 12:10 PM I reviewed and agree with the documentation corresponding to this therapy visit. SIGNATURE: Jesusita Lucero, PT DATE: January 27, 2018 TIME: 12:10 PM Physical Therapy Treatment SERVICE DATE: 01/27/2018 SERVICE TIME: 1135 to 1150 ROOM: [place] [address] Recommended Discharge Disposition: Home (Return to assisted, no follow up PT anticipated.) Anticipated Discharge [...] gait and mobility-other Interventions Provided: Gait Training (03886);Therapeutic Exercise (08753) Therapeutic Exercise (47987) Treatment Minutes: 10 1 unit Skilled Intervention(s): [...] for slowing jo of ex. Gait Training (79072) Treatment Minutes: 5 0 units Skilled Intervention(s): [...] CODE: PT 6 Clicks Score: 20 (01/27/18 9212) Mobility: Walking and Moving Around Current Status [...] Home Environment Patient Lives With: Facility Care (assisted) Assistance Available: 24 Hour Entry To Home: [...] AM PROGRESS Observed: 01/27/2018 Status: COMPLETED Source: [place] 11:51 AM CLINIC OTHER CAMPUS REPOSITORY O ID: [id number] Author: Josse Balderrama Service: Psychiatry Author Type: [...] January 27, 2018 TIME: 11:51 AM PAGER/CONTACT#: [phone] I saw the patient and have read and reviewed the SUPERVISOR BRAKE REPAIR's note and findings. I have discussed the SUPERVISOR BRAKE REPAIR's findings and plan as documented in the SUPERVISOR BRAKE REPAIR's note. Josse Balderrama MD NURSING PROG Observed: 01/27/2018 Status: COMPLETED Source: [place] 9:45 AM [facility] REPOSITORY HNO ID: [id number] Author: Magdalena Pace RN Service: (none) Author Type: Registered Nurse Type: Nursing Progress Note Filed: 01/27/2018 2:01 PM Note Text: Nursing Progress Note Patient Name: Sherita Jurado Patient Location: [address] Daily Note:A+Ox2, affect and mood bland, [...] NURSING PROG Observed: 01/27/2018 Status: COMPLETED Source: [place] 6:40 AM [facility] REPOSITORY HNO ID: [id number] Author: Jamila SpencerRnJulio César Barrett RN Service: Nursing Author Type: Registered Nurse Type: Nursing Progress Note Filed: 01/27/2018 6:41 AM Note Text: Nursing Progress Note Patient Name: Sherita Jurado Patient Location: [address] Daily Note:Pt was in bed, resting comfortably. Pt took HS meds w/o difficultly. Pt was assisted to the bathroom as needed. No s/s of pain or distress. Pt slept long hours. This note was completed by: Jamila Barrett RN NURSING PROG Observed: 01/26/2018 Status: COMPLETED Source: [place] 7:57 PM [facility] OTHER [place] REPOSITORY HNO ID: [id number] Author: Kamila (Rn) JOSE Villalta Service: (none) Author Type: Registered Nurse Type: Nursing Progress Note Filed: 01/26/2018 8:06 PM Note Text: Nursing Progress Note Patient Name: Sherita Jurado Patient Location: [address] Daily Note: Pt alert and oriented [...] AND DIFFERENTIAL Collected: 01/26/2018 Status: F Source: [place] 6:29 PM [facility] OTHER [place] REPOSITORY TYPE CODE TESTS RESULT OUT OF [...] k/uL Abs Lymph 1.26 LAB AMONO % [place]% 7.5 LAB AAMONO <0.87 k/uL Abs [place] 0.46 LAB AEOS % Eosin% 1.8 LAB AAEOS <0.46 k/uL Abs Eosin 0.11 LAB ABASO % Baso% 0.7 LAB AABASO <0.11 k/uL Abs Baso 0.04 LAB DTYP DTYPE Auto Diff BASIC METABOLIC PANL Collected: 01/26/2018 Status: F Source: [place] 6:29 PM CLINIC OTHER CAMPUS REPOSITORY TYPE [...] 8.9 CONSULT Observed: 01/26/2018 Status: COMPLETED Source: [place] 5:11 PM CLINIC OTHER CAMPUS REPOSITORY HNO ID: [id number] Author: German Adkins Service: Neurology General Author Type: Physician Type: Consults Filed: 01/27/2018 12:21 AM Note Text: January 26, 2018 New Inpatient Consult Note [facility] Cat Tender: German Adkins MD Current Attending: Josse Balderrama [...] Lipoma of skin; Mammogram abnormal; Obesity; On fci drug therapy; Palpitations; Parkinson disease ([facility]); Schizophrenia ([facility]); Tremor; and Vitamin D deficiency. He also has no past medical history of Atrial fibrillation ([facility]); Cancer ([facility]); Chronic obstructive pulmonary disease (COPD) ([facility]); Chronic renal insufficiency; Congestive heart failure ([facility]); Coronary artery disease; Depression; Diabetes ([facility]); Epilepsy ([facility]); Hypertension; Hypothyroidism; buttermaker helper (current) use of systemic steroids; Obstructive sleep apnea; Stroke ([facility]); or Substance abuse ([facility]). Past Surgical History includes has a past [...] Adkins MD Staff Neurologist [facility] ALLIED HEALTH Observed: 01/26/2018 Status: COMPLETED Source: [place] 1:39 PM CLINIC OTHER CAMPUS REPOSITORY O ID: [id number] Author: AGUSTÍN Parsons Service: Behavioral Health Author [...] and downs, peer support ? sleeping DMT: [place] of support, moving together octaband 045 ?in [...] MT: Music Therapy DR: Dining Room SW: Wall Man ET: Expressive Therapy RT: Recreation Therapy ? SIGNATURE: AGUSTÍN Parsons PATIENT NAME: Sherita Jurado DATE: January 27, 2018 TIME: 1:23 PM PAGER/CONTACT #: CASE MGT INIT Observed: 01/26/2018 Status: COMPLETED Source: [facility] 11:39 AM CLINIC OTHER CAMPUS REPOSITORY HNO ID: [id number] Author: Silva Bobby (Sw) Service: Social Work Author Type: Wall Man Type: Care Mgt Initial Assessment Filed: 01/26/2018 2:58 PM Note Text: BEHAVIORAL HEALTH SOCIAL WORK/CARE MANAGEMENT ASSESSMENT AND DISCHARGE PLAN SERVICE DATE: 01/26/2018 SERVICE TIME: 11:39 AM Reason for Admission: Pt was admitted to the unit with increased behaviors. Pt resided at [facility]. It was reported pt has been refusing to take his medications and laying naked on the floors of the group home. Also, he will lay in his room naked but will not allow staff to close his door. Legal Status: Voluntary Important Contacts: Legal Guardian Name: Conrad Govea: [phone] Does the patient/benefits representative consent to contact with the above at this time? Not Applicable Information obtained from: Chart Legal Guardian Medical Staff Prior Social Work assessment Referred by: Medical Team Living Arrangements Prior to Admission: Extended/Intermediate Care Facility: [facility] Prior to Admission, Patient was Living with: N/A - Patient From Facility Marital Status: Single Children (including quality of relationship): Patient does not have any children Sexual Orientation: Heterosexual SOCIAL HISTORY Sherita Jurado was born and raised in [place] by his mother. He has 1 brother and 1 sister. He is estranged from his family members. 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 Denies Education History: High School Support System: Limited Support System Legal guardian Employment Status: Disabled Financial Resources: Social Security (SSI/SSDI) Health Insurance: PRIMARY: [place] Medicare (Senior Advantage) Status (including history of combat experience): Dhpyyyvjbz-yoxtcigvb-Etno Legal History: Patient/Cadmium Burner Denies Islam/Spirituality: Unknown PSYCHIATRIC HISTORY: - Psychiatrist: psychiatrist at facility - Prior Diagnoses: Yes, schizophrenia - Previous Mental Health Interventions: Medication, Hospitalization(s), Intermediate, Long-Term and Guardianship Has Patient Been Hospitalized Previously for Psychiatric Reasons? Yes, but there was no admission within the past 30 days. Substance Use and Treatment History: Patient/Cadmium Burner Denies Do special considerations/accommodations need to be made (i.e. preferred language, literacy, gender identity, physical disability such as deaf or blind, etc)? No, Patient/Cadmium Burner Denies Are there practices or beliefs that may affect or influence treatment? No, Patient/Cadmium Burner Denies Patient Strengths/Protective Factors (Minimum of Two): Able to Communicate Needs Legal Guardian FAMILY PSYCHIATRIC HISTORY Patient/Cadmium Burner Denies DISCHARGE RECOMMENDATIONS: Relinkage With Previous Providers Patient/Cadmium Burner Agreeable With Discharge Recommendations At This Time? Yes FREEDOM OF CHOICE EXPLAINED: [facility]-owned/affiliated facilities and agencies have been identified NEEDS PRIOR TO DISCHARGE: Waiting for: Psychiatric Stabilization OBSTACLES TO TREATMENT/POST-DISCHARGE CHALLENGES: Medication Noncompliance Mental Status SUMMARY: Spoke with pts guardian, Conrad, to obtain some additional background information. Pt has had a legal guardian since 1991. He had the same guardian from [id number] when his guardian accepted the position of setter juice packaging machines of [facility]. Conrad Govea was appointed his guardian at that time. Pt had lived in the same assisted, [facility], for 15 years and had been stable. About a year ago, pt started having tremors and displaying behaviors that he had never done before. In April 2017, his Risperdal was D/C'd by his psychiatrist but his tremors worsened. He was needing more assistance, physically, than the assisted could provide. At one point, pt eloped from the facility and it took 10 hours of searching until he was found. He was hospitalized at [facility] in 08/29 but he was discharged back to the assisted. It wasn't until pt was on the medical floor at [place] in 12/30 that pt was finally placed in a group home, [facility]. He has been at the nursing [...] He would like pt to return to [facility]. Will offer pt support and structure and assist with discharge plans. SIGNATURE: BRIELLE Baldwin PATIENT NAME: Sherita Jurado DATE: January 26, 2018 TIME: 11:39 AM PROGRESS Observed: 01/26/2018 Status: COMPLETED Source: [place] 11:21 AM CLINIC OTHER CAMPUS REPOSITORY O ID: [id number] Author: Josse Balderrama Service: Psychiatry Author Type: [...] January 26, 2018 TIME: 11:21 AM PAGER/CONTACT#: [phone] THERAPY NT Observed: 01/26/2018 Status: COMPLETED Source: [place] 10:56 AM CLINIC OTHER CAMPUS REPOSITORY O ID: [id number] Author: Ernestine Groves Service: Physical Therapy Author Type: Plating Tank Operator Type: Therapy (PT/OT/Speech/Resp) Filed: 01/26/2018 1:07 PM Note Text: Attestation signed by Everardo Morgan at 01/26/2018 1:08 PM I reviewed and agree with the documentation corresponding to this therapy visit. SIGNATURE: Everardo Morgan PT, DPT DATE: January 26, 2018 TIME: 1:08 PM Physical Therapy Treatment SERVICE DATE: 01/26/2018 SERVICE TIME: 816 to 840 ROOM: [place] [address]-1 Recommended Discharge Disposition: Home (Return to assisted, no follow up PT anticipated.) Anticipated Discharge [...] gait and mobility-other Interventions Provided: Therapeutic Exercise (73015);Gait Training (78114) Therapeutic Exercise (43849) Treatment Minutes: 15 1 unit Skilled Intervention(s): Instruction in therapeutic exercise seated AP, LAQ, MIP x 20, Standing HR, SLR, HS curls, mip x 10 Verbal and tactile cuing provided for technique and purpose Facilitation of muscle control, optimal recruitment and alignment for balance with standing therex Gait Training (80671) Treatment Minutes: 9 1 unit Skilled Intervention(s): [...] Home Environment Patient Lives With: Facility Care (assisted) Assistance Available: 24 Hour Entry To Home: [...] NURSING PROG Observed: 01/26/2018 Status: COMPLETED Source: [place] 6:30 AM [facility] REPOSITORY HNO ID: [id number] Author: Jamila SpencerRn) JOSE Barrett Service: Nursing Author Type: Registered Nurse Type: Nursing Progress Note Filed: 01/26/2018 6:30 AM Note Text: Nursing Progress Note Patient Name: Sherita Jurado Patient Location: [facility] [place]/ [place] Daily Note:Pt was in bed, resting comfortably. Pt was assisted to the BSC as needed. No s/s of pain or distress. Pt slept long hours. This note was completed by: Jamila Barrett RN NURSING PROG Observed: 01/25/2018 Status: COMPLETED Source: [place] 10:41 PM [facility] REPOSITORY HNO ID: [id number] Author: Eliz SpencerRnJulio César Plata RN Service: (none) Author Type: Registered Nurse Type: Nursing Progress Note Filed: 01/25/2018 10:46 PM Note Text: Nursing Progress Note Patient Name: Sherita Jurado Patient Location: [address]/ [place]-* Daily Note:2000 Alert and oriented x three.Denies discomfort.Tremors noted.Tolerated meds well.Adfect flat.Impulsive behavior (getting up and using chair as walker to go to room) 2199 Door closed paranoid behavior noted when answering door.Patient was told to keep door open,cooperated with nurse. This note was completed by: Eliz Plata RN NURSING PROG Observed: 01/25/2018 Status: COMPLETED Source: [place] 8:36 PM [facility] REPOSITORY HNO ID: [id number] Author: Blossom (Rn) JOSE Thomas Service: Nursing [...] fall, but layed down, denied hurting himself, Landing Support Specialist, Roberth Guerrero COMMERCIAL TRAILER TRUCK DRIVER in to see pt., ortho vital signs [...] fair. PROGRESS Observed: 01/25/2018 Status: COMPLETED Source: [place] 2:06 PM [facility] REPOSITORY HNO ID: [id number] Author: Josse Balderrama Service: Psychiatry Author Type: [...] stable SIGNATURE: Josse Balderrama MD PATIENT NAME: Shertia Jurado DATE: January 25, 2018 TIME: 2:06 PM PAGER/CONTACT#: [phone] PROGRESS Observed: 01/25/2018 Status: COMPLETED Source: [place] 1:09 PM CLINIC OTHER CAMPUS REPOSITORY HNO ID: [id number] Author: Margie Guerrero Service: Critical Care Author [...] a 72 year old male?brought in to [place]?ED from Long-Term?by caregiver??for behavioral problems.Pt has hx.of Schizophrenia, Parkinsons,falls,tremors and dizziness. Recently he has not been taking his medications at the group home and he has been laying around on the floors of the ID naked, also naked in his room and [...] DATE: 01/25/2018 TIME: 1:09 PM PAGER #: [phone] THERAPY NT Observed: 01/25/2018 Status: COMPLETED Source: [place] 12:02 PM CLINIC OTHER CAMPUS REPOSITORY HNO ID: [id number] Author: LIS RAMIREZ (OT/L) Service: Occupational Therapy Author Type: Occupational Therapist Type: Therapy (PT/OT/Speech/Resp) Filed: 01/25/2018 12:16 PM Note Text: Occupational Therapy Evaluation SERVICE DATE: 01/25/2018 SERVICE TIME: 1120 to 1138 ROOM: [place] [address]2 Recommended Discharge Disposition: Home (to prior assisted) Anticipated Discharge Needs: Physical Assist at Home [...] will be safe to return to prior assisted without OT services after acute stay, with increased assist available at assisted as needed, d/t pt's good rehab potential, [...] Patient /Caregiver Goals: Go Home (return to assisted) Goals for Plan of Care: Upper Body [...] (generalized);Unsteadiness on feet Interventions Provided: Evaluation;Therapeutic Activity (57923);Self Custodial Management (13236) $ Evaluation-Low (70003) Billed Units: 1 unit Therapeutic Activity (56415) Treatment Minutes: 5 0 units Skilled Intervention(s): [...] nursing needs, pt aware. Self Custodial Management (34860) Treatment Minutes: 8 1 unit Skilled Intervention(s): [...] is a 72 yo M admitted to [facility] for psychosis to Dr. Balderrama on 01/22/18. [...] Home Environment Patient Lives With: Facility Care (assisted) Assistance Available: 24 Hour Entry To Home: [...] PM PROGRESS Observed: 01/25/2018 Status: COMPLETED Source: [place] 10:36 AM CLINIC OTHER CAMPUS REPOSITORY O ID: [id number] Author: Vikram Washington Service: General Internal Medicine [...] 25, 2018 TIME: 10:36 AM PAGER/CONTACT #: [phone] NURSING PROG Observed: 01/24/2018 Status: COMPLETED Source: [place] 11:28 PM CLINIC OTHER CAMPUS REPOSITORY HNO ID: [id number] Author: Michelle SpencerRn) JOSE Lozada Service: (none) Author Type: Registered Nurse Type: Nursing Progress Note Filed: 01/25/2018 6:20 AM Note Text: Nursing Progress Note Patient Name: Sherita Jurado Patient Location: [place] / [place]-* Daily Note:2320: hand-off report received from off-going [...] NURSING PROG Observed: 01/24/2018 Status: COMPLETED Source: [place] 9:50 PM CLINIC OTHER CAMPUS REPOSITORY HNO ID: [id number] Author: Shell SpencerRn) JOSE Cordova Service: Nursing Author Type: Registered Nurse Type: Nursing Progress Note Filed: 01/24/2018 10:08 PM Note Text: Nursing Progress Note Patient Name: Sherita Jurado Patient Location: [place]-* Daily Note: 194 Assumed care of patient. [...] NURSING PROG Observed: 01/24/2018 Status: COMPLETED Source: [place] 3:30 PM [facility] REPOSITORY HNO ID: [id number] Author: TeoRn) JOSE Christianson Service: Nursing Author Type: Registered Nurse Type: Nursing Progress Note Filed: 01/24/2018 4:27 PM Note Text: Nursing Progress Note Patient Name: Sherita Jurado Patient Location: [place] [address]/ [place]-* Daily Note: 1530: Hand off report received. [...] RN PROGRESS Observed: 01/24/2018 Status: COMPLETED Source: [place] 2:21 PM [facility] REPOSITORY HNO ID: [id number] Author: Josse Balderrama Service: Psychiatry Author Type: [...] Psychological: Group and Behavioral Therapy Social: Cooper ID DISCHARGE PLANNING: when stable SIGNATURE: Josse Balderrama MD PATIENT NAME: Sherita Jurado DATE: January 24, 2018 TIME: 2:21 PM PAGER/CONTACT#: NURSING PROG Observed: 01/24/2018 Status: COMPLETED Source: [place] 9:53 AM [facility] REPOSITORY HNO ID: [id number] Author: Magdalena Pace, JOSE Service: (none) Author Type: Registered Nurse Type: Nursing Progress Note Filed: 01/24/2018 10:02 AM Note Text: Nursing Progress Note Patient Name: Sherita Jurado Patient Location: [place]/ [place]-* Daily Note:A+Ox1, affect blunted, mood obstinate, angry. Conversation nonproductive, difficulty answering questions, major tremors from Parkinsons disease. Refused all medications given with water and /or applesauce. Refused to eat. Blank staring. Requires assistance with ADL. In no acute distress, safety measures taken. This note was completed by: Magdalena Pace RN NURSING PROG Observed: 01/24/2018 Status: COMPLETED Source: [place] 8:17 AM [facility] REPOSITORY HNO ID: [id number] Author: Jamila Barrett RN Service: Nursing Author Type: Registered Nurse Type: Nursing Progress Note Filed: 01/24/2018 8:26 AM Note Text: Nursing Progress Note Patient Name: Sherita Jurado Patient Location: [place] 421/ [place]-* Daily Note:Pt was in bed, resting comfortably. Pt took HS meds w/o difficultly. Pt was assisted with incontinence care. No s/s of pain or distress. Pt slept long hours. This note was completed by: Jamila Barrett RN CBC AND DIFFERENTIAL Collected: 01/24/2018 Status: F Source: [place] 6:25 AM [facility] OTHER CAMPUS REPOSITORY TYPE CODE TESTS [...] k/uL Abs Lymph 1.29 LAB AMONO % [place]% 8.3 LAB AAMONO <0.87 k/uL Abs [place] 0.50 LAB AEOS % Eosin% 1.5 LAB AAEOS <0.46 k/uL Abs Eosin 0.09 LAB ABASO % Baso% 0.7 LAB AABASO <0.11 k/uL Abs Baso 0.04 LAB DTYP DTYPE Auto Diff Performed By: #### LIPB #### [facility] [address] [place] [address] COMP METABOLIC PANEL Collected: 01/24/2018 Status: F Source: [place] 6:25 AM CLINIC OTHER CAMPUS REPOSITORY TYPE [...] ALT <6 Performed By: #### LIPB #### [facility] [address] [place] [id number] LIPID PANEL, BASIC Collected: 01/24/2018 Status: F Source: [place] 6:25 AM [facility] OTHER [place] REPOSITORY TYPE CODE TESTS RESULT OUT OF [...] Desk Reference: National Heart, Lung, and Blood [place]. National Institutes of Health. 2001: NIH Publication No. 01-3305. 2. An International Atherosclerosis Society position paper: global recommendations for the management of dyslipidemia: executive summary, Atherosclerosis. 2014: 232(2):410-413. Performed By: #### LIPB #### [place] [address] [place] [address] HEMOGLOBIN A1C Collected: 01/24/2018 Status: F Source: [place] 6:25 AM [facility] REPOSITORY TYPE CODE TESTS RESULT OUT OF REFERENCE UNITS RANGE LAB HGBA1C 4.3-5.6 % Hemoglobin A1c 4.7 LAB HBA0 mg/dL Est. Average Glucose 88 Result Comment: eAG: (Estimated average glucose) is a calculated value from HgbA1c and is benefits representative of the average blood glucose level in the last 2-3 month period. Performed By: #### HBA1C #### [facility] [place] [address] NURSING PROG Observed: 01/23/2018 Status: COMPLETED Source: [place] 9:12 PM [facility] REPOSITORY HNO ID: [id number] Author: Kamila (Rn) JOSE Villalta Service: (none) Author Type: Registered Nurse Type: Nursing Progress Note Filed: 01/23/2018 9:24 PM Note Text: Nursing Progress Note Patient Name: Sherita Jurado Patient Location: [place] 421/ [place]-* Daily Note: Pt alert and oriented x 1 - 2. Knew he was in the hospital but thought it was in [place]. Tremors severe at times. Denies pain. Selectively [...] HISTORY PHYSICAL Observed: 01/23/2018 Status: COMPLETED Source: [place] 5:01 PM CLINIC OTHER CAMPUS REPOSITORY O ID: [id number] Author: Josse Balderrama Service: Psychiatry Author Type: Physician Type: HANDP Filed: 01/23/2018 5:26 PM Note Text: HISTORY AND PHYSICAL BEHAVIORAL HEALTH SERVICE DATE: 01/23/2018 SERVICE TIME: 5:01 PM IDENTIFYING INFORMATION: Sherita Jurado is a 72 year old retired male who lives in an assisted living setting in [place]. REASON FOR ADMISSION: Psychosis and Agitation Subjective HPI: Sherita presents for admission secondary to combative behavior at the group home. Per Behavior medicine intake: Sherita Jurado is a 72 year old male brought in to [place] ED from Long-Term by caregiver for behavioral problems.Pt has hx.of Schizophrenia, Parkinsons,falls,tremors and dizziness. Recently he has not been taking his medications at the group home and he has been laying around on the floors of the ID naked, also naked in his room and will not allow staff to close his door. Pt denies any SI/HI and denies AVH, just states he is having some nightmares at times but he cannot be specific about them. Pt answers questions with short responses but was calm and cooperative during interview. Tox screen is negative. Pts ID-Cata Walker requests pt be evaluated for medication [...] most recent being on September 12 at [facility]. Patient also has been gone going to [...] Does not remember Current Therapist: No Current General Doc: No Last Hospitalization: September 2017; Total Hospitalizations: [...] cancer- referral made - Obesity - On fci drug therapy - Palpitations - Parkinson disease (HCC) - Schizophrenia (HCC) - Tremor - Vitamin D deficiency HOME MEDICATIONS: See Mar MEDICATION ADHERENCE: Poor SUBSTANCE ABUSE HISTORY: Tobacco: Former smoker ETOH: No history of abuse or dependence. ILLICIT SUBSTANCE USE: None ALLERGIES Allergen Reactions - Goose Feathers Allen* Unknown - Zyprexa [Olanzapine] Unknown SOCIAL HISTORY: Born AND Raised in [place] Childhood: Unremarkable Education: A she does not know Employment: Retired. Relationships: The patient currently is single Children: No Current Supports Include: friends. Legal History: Denied Yarsanism Affiliations: FAMILY HISTORY: Not known Objective VITALS: [...] precautions. 3. Fall precautions Obtain Collateral From: retirement, [employer] SIGNATURE: Josse Balderrama MD PATIENT NAME: Sherita Jurado DATE: January 23, 2018 TIME: 5:01 PM PAGER/CONTACT#: ALLIED HEALTH Observed: 01/23/2018 Status: COMPLETED Source: [place] 4:34 PM CLINIC OTHER CAMPUS REPOSITORY HNO ID: [id number] Author: AGUSTÍN Yu Service: Music Therapy Author [...] football. Past Interest: I used to be latter-day, TV, movies, playing soccer PATIENT'S GOALS FOR [...] none PROGRESS Observed: 01/23/2018 Status: COMPLETED Source: [place] 10:14 AM CLINIC OTHER CAMPUS REPOSITORY [facility] ID: [id number] Author: Vikram Washington Service: General Internal Medicine [...] SIGNATURE: Vikram Washington MD PATIENT NAME: Sherita uJrado DATE: January 23, 2018 TIME: 10:14 AM PAGER/CONTACT #: [phone] THERAPY NT Observed: 01/23/2018 Status: COMPLETED Source: [place] 9:55 AM CLINIC OTHER CAMPUS REPOSITORY O ID: [id number] Author: Nicole (Pt) Luis Service: Physical Therapy Author Type: Physical Therapist Type: Therapy (PT/OT/Speech/Resp) Filed: 01/23/2018 12:18 PM Note Text: Physical Therapy Evaluation SERVICE DATE: 01/23/2018 SERVICE TIME: 4689 to 1010 [address]: [address] Recommended Discharge Disposition: Home (Return to assisted, no follow up PT anticipated.) Anticipated Discharge [...] gait and mobility-other Interventions Provided: Evaluation;Gait Training (27762) $ Evaluation-Low (58873) Billed Units: 1 unit Patient presents with Pt evaluation of low complexity due to few co-morbidities directly affecting pt's current condition. Pt's presentation is relatively stable/uncomplicated, not requiring continual or complex monitoring/assessment. Patient admitted to [facility] for increased paranoia and behavioral issues. Has prior history of schizophrenia and Parkinsons. Requires skilled PT to assess functional mobility and safety and make appropriate DC recommendations. Gait Training (71481) Treatment Minutes: 10 1 unit Skilled Intervention(s): [...] a 72 year old male admitted to [place] from his assisted on 01/22/18 with increased paranoia and behavioral issues. Patient was then transferred to [facility] unit for medication mgmt and behavioral stabilization. Reason for Physical Therapy Consult : safety and functional mobility assessment Relevant Past Medical History: schizophrenia, Parkinson's with tremors, falls, Patient Report: Patient non verbal for duration of session, but nodded yes/no to most questions. Was able to follow 2 step instructions without any issues. Home Environment Patient Lives With: Facility Care (assisted) Assistance Available: 24 Hour Entry To Home: No Stairs Number Of Stairs To Bed/Bath: 0 (on ground floor) Tub/Shower Type: tub shower Equipment Owned: Hand Held Shower (may have shower chair) Prior Functional Level: History of Falls;Required Assistance Assistance Required With: Meals;Medication Management;Transportation;Shopping Prior Functional Level Comments: Per intake info from [place], pt ambs w/o AD, indep with ADLs, [...] NURSING PROG Observed: 01/23/2018 Status: COMPLETED Source: [facility] 3:03 AM CLINIC OTHER CAMPUS REPOSITORY HNO ID: [id number] Author: Cynthia (Rn) JOSE Kirby Service: (none) Author Type: Registered Nurse Type: Nursing Progress Note Filed: 01/23/2018 4:22 AM Note Text: Nursing Progress Note Patient Name: Sherita Jurado Patient Location: [facility] [place] [facility] [place] Daily Note: 0030 patient came to the unit from [facility] where he BIB EMS for combative and psychotic behavior at the ID, patient was able to walk to the [...] new order for IM Haldol received from Landing Support Specialist, security at bed side. 0200 IM Haldol [...] ED NOTE Observed: 01/22/2018 Status: COMPLETED Source: [place] 9:50 PM [facility] REPOSITORY HNO ID: [id number] Author: Lis SpencerRn) JOSE Hernandez Service: Nursing Author Type: Registered Nurse Type: ED Notes Filed: 01/22/2018 9:57 PM Note Text: Pt denies auditory/visual hallucinations at this time. Pt urinated on the floor. ED NOTE Observed: 01/22/2018 Status: COMPLETED Source: [facility] 9:30 PM [facility] REPOSITORY HNO ID: [id number] Author: Lis SpencerRn) JOSE Hernandez Service: Nursing Author Type: Registered Nurse Type: ED Notes Filed: 01/22/2018 9:31 PM Note Text: Pt laying in bed resting at this time, awaiting transport. ED NOTE Observed: 01/22/2018 Status: COMPLETED Source: [facility] 8:21 PM [facility] REPOSITORY HNO ID: [id number] Author: Lis Watts) JOSE Hernandez Service: Nursing Author Type: Registered Nurse Type: ED Notes Filed: 01/22/2018 8:21 PM Note Text: Pt resting in bed at this time. Cooperating with staff. [place] given. Awaiting transport to [facility]. PLAN OF CARE Observed: 01/22/2018 Status: COMPLETED Source: [facility] 7:43 PM [facility] REPOSITORY HNO ID: [id number] Author: Dilma Zelaya (Pharmacist) Service: Pharmacy Author Type: Pharmacist Type: Plan of Care Filed: 01/22/2018 7:44 PM Note Text: MEDICATION HISTORY Patient Name:Donato Jurado : 1945 Source of history:custodial/Other [facility] - [facility], [facility] Medication Nonadherence Identified: No barriers noted The above information represents the best possible medication history: Yes Additional comments: Updated medication list to reflect [facility] provided by group home. Allergies: ALLERGIES Allergen Reactions - Goose Feathers Allen* Unknown - Zyprexa [Olanzapine] Unknown Current INVENTORY ANALYST Medications: Prior to Admission medications as of [...] ED NOTE Observed: 01/22/2018 Status: COMPLETED Source: [place] 7:00 PM [facility] OTHER [place] REPOSITORY HNO ID: [id number] Author: Balbina (Rn) JOSE Schmidt Service: (none) [...] ED NOTE Observed: 01/22/2018 Status: COMPLETED Source: [facility] 6:30 PM [facility] OTHER [place] REPOSITORY HNO ID: [id number] Author: Balbina (Rn) JOSE Schmidt Service: (none) Author Type: Registered Nurse Type: ED Notes Filed: 01/22/2018 8:03 PM Note Text: Patient sat on side of bed and with assistance ate 75% of dinner tray. ED NOTE Observed: 01/22/2018 Status: COMPLETED Source: [facility] 6:00 PM CLINIC OTHER CAMPUS REPOSITORY HNO ID: [id number] Author: Balbina (Rn) Brayan, RN Service: (none) Author Type: Registered Nurse Type: ED Notes Filed: 01/22/2018 8:04 PM Note Text: Patient spoke with intake and is agreeable to receiving help stabilizing medication CBC AND DIFFERENTIAL Collected: 01/22/2018 Status: F Source: [facility] 3:55 PM CLINIC OTHER CAMPUS REPOSITORY TYPE [...] Low Abs Lymph 0.70 LAB AMONO % [place]% 8.2 LAB AAMONO <0.87 k/uL Abs [place] 0.49 LAB AEOS % Eosin% 1.9 LAB AAEOS <0.46 k/uL Abs Eosin 0.11 LAB ABASO % Baso% 1.0 LAB AABASO <0.11 k/uL Abs Baso 0.06 Performed By: #### CBCDIF, ALCO, CMP #### [facility] [address] [place] [address] ETHANOL Collected: 01/22/2018 Status: F Source: [facility] 3:55 PM CLINIC OTHER CAMPUS REPOSITORY TYPE CODE TESTS RESULT OUT OF REFERENCE UNITS RANGE LAB ALCO <11 mg/dL Ethanol <11 Performed By: #### CBCDIF, ALCO, CMP #### [facility] [address] [facility] [phone] COMP METABOLIC PANEL Collected: 01/22/2018 Status: F Source: [facility] 3:55 PM CLINIC OTHER CAMPUS REPOSITORY TYPE [...] 74-99 mg/dL Glucose 86 Result Comment: The [place] Diabetes Association (ADA) provides guidance for cutoff [...] Standards of Medical Care in Diabetes 2016, [place] Diabetes Association. Diabetes Care. 2016.39(Suppl 1). LAB [...] has been calibrated to be traceable to IDAL. An eGFR <60 mL/min/1.73m2 for >3 months is consistent with chronic kidney disease. Refer to KDOQI guidelines for clinical interpretation. In patients with unstable renal function, e.g. those with acute kidney injury, the eGFR may not accurately reflect actual GFR. Performed By: #### CBCDIF, ALCO, CMP #### [facility] [address] [place] [address] URINALYSIS Collected: 01/22/2018 Status: F Source: [place] 3:50 PM [facility] REPOSITORY TYPE CODE TESTS RESULT OUT OF REFERENCE UNITS RANGE LAB UCOL Yellow Color Yellow LAB [facility] Clear Clarity Clear LAB UGLUC Negative mg/dL Glucose, Urine Negative LAB UBIL Negative Bilirubin, Urine Negative LAB UKET Negative Ketones, Urine Negative LAB USPG 1.001-1.029 Specific [place], Ur 1.010 LAB UHGB Negative Hemoglobin/Blood, Negative Ur LAB UPH 5.0-8.0 pH 7.0 LAB UPROT Negative mg/dL Protein, Urine Negative LAB UUROB 0.2-1.0 Urobilinogen 1.0 LAB UNITR Negative Nitrites Negative LAB ULKEST Negative Leukest Negative Performed By: #### UA, UTOX2 #### [facility] [address] [place] [address] TOXICOLOGY SCREEN,UR Collected: 01/22/2018 Status: F Source: [facility] 3:50 PM [facility] [place] REPOSITORY TYPE CODE TESTS RESULT OUT OF [...] on the same specimen through Client Services ([phone]) if contacted within 48 hours of initial testing. [1]Substance Abuse and Mental Health Services Administration (2012). Clinical Drug Testing in Primary Care Technical Assistance Publication Series 32. Department of Health and Human Services, [place], p.10. Performed By: #### UA, UTOX2 #### [facility] [address] [facility] [phone] EKG Observed: 01/22/2018 Status: F Source: [facility] 3:34 PM CLINIC OTHER CAMPUS REPOSITORY NAME : SHERITA JURADO PID : [id number] : 1945 Gender : Male Race : ORD : [id number] Procedure Date : Jan 22 2018 15:34:32 [...] NO CHANGES Confirmed by MD STRANGE CARL ([id number]), fan mail editor HARMEET PEREZ ([id number]) on 01/23/2018 7:03:17 AM Ventricular Rate : 63 BPM Atrial Rate : 63 BPM P-R Interval : 138 ms QRS Duration : 90 ms Q-T Interval : 418 ms QTC Calculation(Bezet) : 427 ms P [place] : 62 degrees R [place] : -40 degrees T [place] : 40 degrees Test Reason : Arrhythmia Location : 1 : ER 8 Overread By : MD STRANGE CARL Edited By : HARMEET PEREZ Referred By : , Acquired by : PS, ED PROV NOTE Observed: 01/22/2018 Status: COMPLETED Source: [facility] 3:30 PM CLINIC OTHER CAMPUS REPOSITORY [facility] ID: [id number] Author: Sherita Strange MD Service: (none) Author Type: Physician Type: ED Provider Notes Filed: 01/22/2018 8:17 PM Note Text: ED Provider Note Patient Name: Sherita Jurado SERVICE DATE: 01/22/18 History Patient presents with: Psychiatric Problem: brought in by [facility] for psych reasons The patient presents for [...] cancer- referral made - Obesity - On intermediate manager drug therapy - Palpitations - Parkinson disease [...] Patient was accepted for psychiatric admission at [facility] by Dr. Serrano SIGNATURE: MD Sherita Flores MD 01/22/182016 ED NOTE Observed: 01/22/2018 Status: COMPLETED Source: [place] 3:25 PM CLINIC OTHER CAMPUS REPOSITORY HNO ID: [id number] Author: Balbina SpencerRn) JOSE Schmidt Service: (none) Author Type: Registered Nurse Type: ED Notes Filed: 01/22/2018 7:57 PM Note Text: Patient having paranoia episodes at nursing facility. Found in room laying on floor with no clothes on. Refusing to take medications and refusing to eat. Per nursing staff patient is altered from his normal mental state. ED NOTE Observed: 01/22/2018 Status: COMPLETED Source: [facility] 3:10 PM [facility]IN[facility] OTHER [place] REPOSITORY HNO ID: [id number] Author: Diana SpencerRn) JOSE Powell Service: (none) Author Type: Registered Nurse Type: ED Notes Filed: 01/22/2018 3:11 PM Note Text: Patient brought in by POV from [facility], for psych reasons CASE MANAGEM Observed: 12/24/2017 Status: COMPLETED Source: [place] 2:49 PM [facility] REPOSITORY HNO ID: [id number] Author: Spring Anna (Sw) Service: Care Management Author Type: Wall Man Type: Care Mgt Progress Note Filed: 12/24/2017 2:54 PM Note Text: CARE MANAGEMENT DISCHARGE NOTE SERVICE DATE: 12/24/2017 SERVICE TIME: 2:49 PM LOS: 0 days Admission Date: 12/17/2017 DISCHARGE ARRANGEMENT (list agency and phone number) long-term facility: Was an expedited discharge program used? No [facility] CAREGIVER ASSESSMENT: Caregiver is ready, [...] Transportation: Ambulance Transportation Agency and Phone #: [facility] ( [facility] ) [phone] / [phone]. Date of Trip: 12/24/2017 Type of Service: BLS Non-emergency Is Patient Medicaid Pending: No and pt has active Medicaid Discussion of financial coverage occurred with Guardian . Hand Stitcher Location: [facility], , 215[address] Destination: [facility] Financial Care Management Responsibility: None Estimated Charge: n/a Approving Claims Account Specialist: n/a ADDITIONAL CONTACT RESOURCES: n/a D/c orders [...] care sent to PCP and SNF via [employer]. SIGNATURE: BALTA Pacheco, PEDRO PATIENT NAME: Sherita Jurado DATE: December 24, 2017 TIME: 2:49 PM PAGER/CONTACT #: [phone] CNDS Observed: 12/24/2017 Status: COMPLETED Source: [facility] 2:03 PM CLINIC OTHER CAMPUS REPOSITORY HNO ID: [id number] Author: Eugenia Rai Service: Hospital Medicine Author [...] disease and schizophrenia who wandered from his assisted and was taken to [place] for medical clearance after being out PE for over 10 hours He was cleared medically sent to the assisted but sent back to the emergency department because a assisted since they could not stop him from [...] The patient had been functioning in a assisted and is now weak and falling and unable to feed himself and has begun wandering off and getting lost PLAN: PT OT and neurology evaluations with plans for longterm home placement at least temporarily Physical debility 12/18/2017 - Present Current Assessment AND Plan Assessment: Apparently falling and weak which are new along with his increased confusion making unmanageable and non-locked facility PLAN: PT recommend longterm facility Schizophrenia ([facility]) 09/07/2017 - Present Current Assessment AND Plan Assessment: Problem is stable with current regimen. PLAN: Stopped antipsychotic medications Severe protein-calorie malnutrition ([facility]) 09/04/2017 - Present Current Assessment AND Plan Assessment: patient eating everything on his tray every time I've been in the room PLAN: continue oral supplements along with diet Parkinsonism ([facility]) 09/05/2017 - Present Current Assessment AND Plan [...] Patient Condition @ Discharge: Good Discharge Disposition: Long-Term Facility Discharge Physical Exam: VITAL SIGNS: BP [...] this patient. SIGNATURE: Eugenia Rai MD PAGER: [phone] DATE: December 24, 2017 TIME: 2:03 PM BASIC METABOLIC PANL Collected: 12/24/2017 Status: F Source: [facility] 4:38 AM CLINIC OTHER CAMPUS REPOSITORY TYPE CODE TESTS RESULT OUT OF REFERENCE UNITS RANGE LAB GLU 74-99 mg/dL Glucose 92 Result Comment: The [place] Diabetes Association (ADA) provides guidance for cutoff [...] Standards of Medical Care in Diabetes 2016, [place] Diabetes Association. Diabetes Care. 2016.39(Suppl 1). LAB [...] actual GFR. Performed By: #### BMP #### [facility] [address] [place] [address] CNCO Observed: 12/24/2017 Status: COMPLETED Source: [facility] 12:00 AM CLINIC OTHER CAMPUS REPOSITORY Letter Text December 24, 2017 Sherita Dacosta Adrien [address] [facility] [address] Dear Mr. Jurado, The nurses and staff of [facility] hope this letter finds you feeling well [...] free to contact me, Gabriela Espinosa RN ([phone]) or email me at, [email or web address] Additionally, you will receive a survey [...] participation and thank you for choosing the [facility] for your health needs. Sincerely, Nurse Claims Account Specialist: Gabriela Espinosa RN ([phone]) [facility] Unit: [address] Letter Text December 25, 2017 Department of Hospital Medicine [address] [place] [address] Re: Sherita Jurado Dear Dr. Hidalgo: A patient of your practice, Sherita Jurado (: 1945) was treated at [facility] under the care of the [facility] Department of Hospital Medicine, and discharged on 12/24/2017. A transcribed discharge summary should be forthcoming promptly. If you need additional information or assistance, you may contact the Department of Hospital Medicine at [phone] during regular business hours, and we?ll be happy to assist you. Best Regards, Cristobal Barrera PROGRESS Observed: 12/23/2017 Status: COMPLETED Source: [facility] 6:35 PM CLINIC OTHER CAMPUS REPOSITORY HNO ID: [id number] Author: Eugenia Monet) Robinaunm [facility] medical centerabelino Service: Hospital Medicine Author Type: Physician Type: Progress Notes Filed: 12/23/2017 6:36 PM Note Text: SERVICE DATE: 12/23/2017 SERVICE TIME: 6:35 PM HOSPITAL MEDICINE PROGRESS NOTE NIGHT AND WEEKEND COVERAGE: Nights: Please contact pager [phone]. Reason for Admission/Observation: Wandering from assisted and unable to be cared for there HOSPITAL DAY ZERO: 12/17/2017 Presentation: 72-year-old male with Parkinson's disease and schizophrenia who wandered from his assisted and was taken to [place] for medical clearance after being out PE for over 10 hours He was cleared medically sent to the assisted but sent back to the emergency department because a assisted since they could not stop him from [...] completing his diet PLAN: awaiting precertification for longterm facility for rehabilitation for physical debility Alteration in self-care ability 12/18/2017 - Present Current Assessment AND Plan Assessment: The patient had been functioning in a assisted and is now weak and falling and unable to feed himself and has begun wandering off and getting lost PLAN: PT OT and neurology evaluations with plans for longterm home placement at least temporarily Physical debility 12/18/2017 - Present Current Assessment AND Plan Assessment: Apparently falling and weak which are new along with his increased confusion making unmanageable and non-locked facility PLAN: PT recommend longterm facility Schizophrenia ([facility]) 09/07/2017 - Present Current Assessment AND Plan Assessment: Problem is stable with current regimen. PLAN: Continue current regimen Severe protein-calorie malnutrition ([facility]) 09/04/2017 - Present Current Assessment AND Plan Assessment: patient eating everything on his tray every time I've been in the room PLAN: continue oral supplements along with diet Parkinsonism ([facility]) 09/05/2017 - Present Current Assessment AND Plan Assessment: tremor much improved with medication changes PLAN: continue to monitor Medication and Non-Pharmacologic VTE Prophylaxis/Anticoagulants 12/20/17 1215 activity - mobilize patient ([place]) 12/17/17 2230 pneumatic compression stockings ([place]) 12/17/17 2230 activity - mobilize patient ([place], [place]) VTE Prophylaxis: VTE prophylaxis appropriate Plan of care discussed with: Patient SIGNATURE: Eugenia Rai MD PATIENT NAME: Sherita Jurado DATE: December 23, 2017 TIME: 6:35 PM PAGER/CONTACT #: [phone] CASE MANAGEM Observed: 12/23/2017 Status: COMPLETED Source: [facility] 4:26 PM CLINIC OTHER CAMPUS REPOSITORY HNO ID: [id number] Author: Spring Anna (Sw) Service: Care Management Author Type: Wall Man Type: Care Mgt Progress Note Filed: 12/23/2017 4:28 PM Note Text: CARE MANAGEMENT PROGRESS NOTE SERVICE DATE: 12/23/2017 SERVICE TIME: 4:26 PM LOS: 0 days Needs Prior to Discharge: Discharge Transportation;Patient/Family Patient/Family: (guardian) Joao reviewed EMR. Jaimee Ugalde has precert. Joao called and left [facility] for guardian Conrad Cole [phone] re: d/c transportation. No response. Will address d/c transportation in the morning. Sw met with pt bedside to inform of precert and anticipated d/c tomorrow. Pt agreeable. CM will continue to follow for d/c planning. SIGNATURE: BALTA Pacheco, PEDRO PATIENT NAME: Sherita Jurado DATE: December 23, 2017 TIME: 4:26 PM PAGER/CONTACT #: [phone] BASIC METABOLIC PANL Collected: 12/23/2017 Status: F Source: [facility] 5:40 AM CLINIC OTHER CAMPUS REPOSITORY TYPE CODE TESTS RESULT OUT OF REFERENCE UNITS RANGE LAB GLU 74-99 mg/dL Glucose 86 Result Comment: The [place] Diabetes Association (ADA) provides guidance for cutoff [...] Standards of Medical Care in Diabetes 2016, [place] Diabetes Association. Diabetes Care. 2016.39(Suppl 1). LAB [...] actual GFR. Performed By: #### BMP #### [facility] [address] [facility] [phone] CONSULT PROG Observed: 12/22/2017 Status: COMPLETED Source: [place] 10:44 PM CLINIC OTHER CAMPUS REPOSITORY HNO ID: [id number] Author: Sylvia Mcfarland Service: Neurology Author Type: Physician Type: Consult Progress Note Filed: 12/23/2017 10:27 PM Note Text: NEUROLOGY CONSULT PROGRESS NOTE SERVICE DATE: 12/22/2017 Current Attending Provider: Eugenia Monet) Ruthie Subjective Interval History: Today, Sherita is improved. [...] 22.5 mg 22.5 mg ORAL AT BEDTIME [facility] [place] 22.5 mg at 12/22/172100 cyanocobalamin 1,000 mcg injection 1,000 mcg INTRAMUSCULAR q 4 WEEKS [facility] [place] 1,000 mcg at 12/20/17 1016 cholecalciferol 1,000 Units tab(s) (VITAMIN D3) 1,000 Units ORAL DAILY [facility] [place] [place] 1,000 Units at 12/22/17 0843 Objective Physical [...] ? Coordination: Finger-to- nose-finger intact bilaterally and Dtso-se-alnu intact bilaterally. ? 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 That is hard to hold Clonazepam as ordered See orders for sinemet and clonazepam Resolved Problems: Delirium POA: Yes SIGNATURE: Sylvia Mcfarland MD PATIENT NAME: Sherita Jurado DATE: December 22, 2017 TIME: 10:44 PM PAGER/CONTAC PROGRESS Observed: 12/22/2017 Status: COMPLETED Source: [place] 3:11 PM CLINIC OTHER CAMPUS REPOSITORY O ID: [id number] Author: Eugenia Monet) Ruthie Service: Hospital Medicine Author Type: Physician Type: Progress Notes Filed: 12/22/2017 3:14 PM Note Text: SERVICE DATE: 12/22/2017 SERVICE TIME: 3:11 PM HOSPITAL MEDICINE PROGRESS NOTE NIGHT AND WEEKEND COVERAGE: Nights: Please contact pager [phone]. Reason for Admission/Observation: Wandering from assisted and unable to be cared for there HOSPITAL DAY ZERO: 12/17/2017 Presentation: 72-year-old male with Parkinson's disease and schizophrenia who wandered from his assisted and was taken to [place] for medical clearance after being out PE for over 10 hours He was cleared medically sent to the assisted but sent back to the emergency department because a assisted since they could not stop him from [...] completing his diet PLAN: awaiting precertification for longterm facility for rehabilitation for physical debility Alteration in self-care ability 12/18/2017 - Present Current Assessment AND Plan Assessment: The patient had been functioning in a assisted and is now weak and falling and unable to feed himself and has begun wandering off and getting lost PLAN: PT OT and neurology evaluations with plans for longterm home placement at least temporarily Physical debility 12/18/2017 - Present Current Assessment AND Plan Assessment: Apparently falling and weak which are new along with his increased confusion making unmanageable and non-locked facility PLAN: PT recommend longterm facility Schizophrenia ([facility]) 09/07/2017 - Present Current [...] Prophylaxis/Anticoagulants 12/20/17 1215 activity - mobilize patient ([place]) 12/17/17 223 pneumatic compression stockings ([place]) 12/17/172229 activity - mobilize patient ([place]) VTE Prophylaxis: VTE prophylaxis appropriate Plan of care discussed with: Patient and RN SIGNATURE: Eugenia Rai MD PATIENT NAME: Sherita Jurado DATE: December 22, 2017 TIME: 3:11 PM PAGER/CONTACT #: [phone] NUTRITION Observed: 12/22/2017 Status: COMPLETED Source: [place] 12:09 PM CLINIC OTHER CAMPUS REPOSITORY O ID: [id number] Author: Isha Jefferson) Althea Service: Nutrition Therapy [...] (Active) Stage Injury 1 12/22/2017 10:00 AM Clin Application Specialist Related Pressure Injury No 12/21/2017 8:59 PM Dressing Status None: Open to Air 12/22/2017 10:00 AM Drainage Description None 12/22/2017 10:00 AM Drainage Amount None 12/22/2017 10:00 AM Odor No 12/22/2017 10:00 AM Wound Surface Color [place] 12/22/2017 10:00 AM Surrounding Skin Intact 12/21/2017 8:59 PM Length in Cm - Weekly 4 Cm 12/18/2017 12:00 AM Width in Cm - Weekly 3 Cm 12/18/2017 12:00 AM Depth in Cm - Weekly 0 Cm 12/18/2017 12:00 AM Number of days: 4 MNT Billing Type: Re-assess/15 min 1 unit SIGNATURE: Isha Oh RD PATIENT NAME: Sherita Jurado DATE: December 22, 2017 TIME: 12:09 PM PLAN OF CARE Observed: 12/22/2017 Status: COMPLETED Source: [place] 11:30 AM CLINIC OTHER CAMPUS REPOSITORY HNO ID: [id number] Author: Aracelis (Rn) Andres, RN Service: Case [...] Ability Physical Debility Attendees Present at Rounds: Asphalt Blender: Aracelis Campos Provider: Dr. Rai Needs Discussed on Rounds: Discharge Needs Anticipated Discharge Disposition: Long-Term Facility Last Vitals: BP 133/80 Pulse 76 [...] December 22, 2017 TIME: 2:56 PM CSN: [id number] THERAPY NT Observed: 12/22/2017 Status: COMPLETED Source: [place] 11:02 AM CLINIC OTHER CAMPUS REPOSITORY [facility] ID: [id number] Author: Desi (Pt) Neeta Service: Physical Therapy Author Type: Physical Therapist Type: Therapy (PT/OT/Speech/Resp) Filed: 12/22/2017 11:09 AM Note Text: Physical Therapy Treatment SERVICE DATE: 12/22/2017 SERVICE TIME: 941 to 1005 ROOM: [place] [address] Recommended Discharge Disposition: Subacute/SNF Recommended Discharge Disposition [...] Unsteadiness on feet Interventions Provided: Therapeutic Exercise (83623);Gait Training (54779) Therapeutic Exercise (60690) Treatment Minutes: 11 1 unit Skilled Intervention(s): Instruction in therapeutic exercise Pt completes the following seated therex bilaterally x 20 reps: Alternating marches, LAQ, heel slides, isometric hip ADD, manually resisted hip ABD Sit to stand x 5 repetitions Verbal, visual and tactile cues provided as needed for technique and control. Gait Training (73439) Treatment Minutes: 12 1 unit Skilled Intervention(s): [...] Home Environment Patient Lives With: Facility Care (Intermediate) Assistance Available: 24 Hour Entry To Home: [...] THERAPY NT Observed: 12/22/2017 Status: COMPLETED Source: [facility] 9:54 AM CLINIC OTHER CAMPUS REPOSITORY HNO ID: [id number] Author: Amanda Shepherd/Hay Varner Service: Occupational Therapy Author Type: Occupational Therapist Type: Therapy (PT/OT/Speech/Resp) Filed: 12/22/2017 10:03 AM Note Text: Occupational Therapy Treatment SERVICE DATE: 12/22/2017 SERVICE TIME: 911 to 941 ROOM: [id number] Recommended Discharge Disposition: Subacute/SNF Recommended Discharge Disposition [...] daily living (ADL) Interventions Provided: Therapeutic Activity (05822);Self Custodial Management (48522) Therapeutic Activity (66162) Treatment Minutes: 10 1 unit Skilled Intervention(s): [...] reaching back for surface. Self Custodial Management (03624) Treatment Minutes: 17 1 unit Skilled Intervention(s): [...] Home Environment Patient Lives With: Facility Care (Intermediate) Assistance Available: 24 Hour Entry To Home: [...] METABOLIC PANL Collected: 12/22/2017 Status: F Source: [facility] 5:26 AM CLINIC OTHER CAMPUS REPOSITORY TYPE CODE TESTS RESULT OUT OF REFERENCE UNITS RANGE LAB GLU 74-99 mg/dL Glucose 87 Result Comment: The [place] Diabetes Association (ADA) provides guidance for cutoff [...] Standards of Medical Care in Diabetes 2016, [place] [employer]. Diabetes Care. 2016.39(Suppl 1). LAB [...] actual GFR. Performed By: #### BMP #### [facility] [address] [place] [address] PROGRESS Observed: 12/21/2017 Status: COMPLETED Source: [facility] 4:30 PM CLINIC OTHER CAMPUS REPOSITORY [facility] ID: [id number] Author: Juve Schultz MD Service: Hospital Medicine Author Type: Physician Type: Progress Notes Filed: 12/21/2017 4:30 PM Note Text: SERVICE DATE: 12/21/2017 SERVICE TIME: 4:30 PM HOSPITAL MEDICINE PROGRESS NOTE NIGHT AND WEEKEND COVERAGE: Nights: Please contact pager [phone]. Reason for Admission/Observation: Wandering from assisted and unable to be cared for there HOSPITAL DAY ZERO: 12/17/2017 Presentation: 72-year-old male with Parkinson's disease and schizophrenia who wandered from his assisted and was taken to [place] for medical clearance after being out PE for over 10 hours He was cleared medically sent to the assisted but sent back to the emergency department because a assisted since they could not stop him from [...] completing his diet PLAN: awaiting precertification for longterm facility for rehabilitation for physical debility B Alteration in self-care ability 12/18/2017 - Present Current Assessment AND Plan Assessment: The patient had been functioning in a assisted and is now weak and falling and unable to feed himself and has begun wandering off and getting lost PLAN: PT OT and neurology evaluations with plans for longterm home placement at least temporarily C Physical debility 12/18/2017 - Present Current Assessment AND Plan Assessment: Apparently falling and weak which are new along with his increased confusion making unmanageable and non-locked facility PLAN: PT recommend longterm facility D Schizophrenia ([facility]) 09/07/2017 - Present Overview Continue Quetiapine 50mg BID Current Assessment AND Plan Assessment: Problem is stable with current regimen. PLAN: Continue current regimen H Severe protein-calorie malnutrition ([facility]) 09/04/2017 - Present Current Assessment AND Plan Assessment: patient eating everything on his tray every time I've been in the room PLAN: continue oral supplements along with diet M Parkinsonism ([facility]) 09/05/2017 - Present Overview Continue carbidopa/levodopa Will consult Neurology if any of his current medications need to be changed given this incident Current Assessment AND Plan Assessment: tremor much improved with medication changes PLAN: continue to monitor Medication and Non-Pharmacologic VTE Prophylaxis/Anticoagulants 12/20/17 1215 activity - mobilize patient ([place], [place]) 12/17/17 2230 pneumatic compression stockings ([place], [place]) 12/17/17 2230 activity - mobilize patient ([place]) VTE Prophylaxis: VTE prophylaxis appropriate Plan of care discussed with: Patient and RN SIGNATURE: Juve Schultz MD PATIENT NAME: Sherita Jurado DATE: December 21, 2017 TIME: 4:30 PM PAGER/CONTACT #: BASIC METABOLIC PANL Collected: 12/21/2017 Status: F Source: [facility] 5:31 AM CLINIC OTHER CAMPUS REPOSITORY TYPE CODE TESTS RESULT OUT OF REFERENCE UNITS RANGE LAB GLU 74-99 mg/dL Glucose 87 Result Comment: The [place] Diabetes Association (ADA) provides guidance for cutoff [...] Standards of Medical Care in Diabetes 2016, [place] [employer]. Diabetes Care. 2016.39(Suppl 1). LAB [...] actual GFR. Performed By: #### BMP #### [facility] [address] [place] [address] PROGRESS Observed: 12/20/2017 Status: COMPLETED Source: [facility] 12:27 PM CLINIC OTHER CAMPUS REPOSITORY O ID: [id number] Author: Juve Schultz MD Service: Hospital Medicine Author Type: Physician Type: Progress Notes Filed: 12/20/2017 12:27 PM Note Text: SERVICE DATE: 12/20/2017 SERVICE TIME: 12:27 PM HOSPITAL MEDICINE PROGRESS NOTE NIGHT AND WEEKEND COVERAGE: Nights: Please contact pager [phone]. Reason for Admission/Observation: Wandering from assisted and unable to be cared for there HOSPITAL DAY ZERO: 12/17/2017 Presentation: 72-year-old male with Parkinson's disease and schizophrenia who wandered from his assisted and was taken to [place] for medical clearance after being out PE for over 10 hours He was cleared medically sent to the assisted but sent back to the emergency department because a assisted since they could not stop him from [...] completing his diet PLAN: awaiting precertification for longterm facility for rehabilitation for physical debility B Alteration in self-care ability 12/18/2017 - Present Current Assessment AND Plan Assessment: The patient had been functioning in a assisted and is now weak and falling and unable to feed himself and has begun wandering off and getting lost PLAN: PT OT and neurology evaluations with plans for longterm home placement at least temporarily C Physical debility 12/18/2017 - Present Current Assessment AND Plan Assessment: Apparently falling and weak which are new along with his increased confusion making unmanageable and non-locked facility PLAN: PT recommend longterm facility D Schizophrenia ([facility]) 09/07/2017 - Present Overview Continue Quetiapine 50mg BID Current Assessment AND Plan Assessment: Problem is stable with current regimen. PLAN: Continue current regimen H Severe protein-calorie malnutrition ([facility]) 09/04/2017 - Present Current Assessment AND Plan Assessment: patient eating everything on his tray every time I've been in the room PLAN: continue oral supplements along with diet M Parkinsonism ([facility]) 09/05/2017 - Present Overview Continue carbidopa/levodopa Will consult Neurology if any of his current medications need to be changed given this incident Current Assessment AND Plan Assessment: tremor much improved with medication changes PLAN: continue to monitor Medication and Non-Pharmacologic VTE Prophylaxis/Anticoagulants 12/20/17 1215 activity - [place]ize [place]) 12/17/17 2230 pneumatic compression stockings ([place]) 12/17/17 223 activity - mobilize patient ([place], [place]) VTE Prophylaxis: VTE prophylaxis appropriate Plan of care discussed with: Patient, Case Management and RN SIGNATURE: Juve Schultz MD PATIENT NAME: Sherita Jurado DATE: December 20, 2017 TIME: 12:27 PM PAGER/CONTACT #: BASIC METABOLIC PANL Collected: 12/20/2017 Status: F Source: [facility] 4:38 AM CLINIC OTHER CAMPUS REPOSITORY TYPE CODE TESTS RESULT OUT OF REFERENCE UNITS RANGE LAB GLU 74-99 mg/dL Glucose 94 Result Comment: The [place] Diabetes Association (ADA) provides guidance for cutoff [...] Standards of Medical Care in Diabetes 2016, [place] [employer]. Diabetes Care. 2016.39(Suppl 1). LAB [...] actual GFR. Performed By: #### BMP #### [facility] [address] [facility] [phone] NURSING PROG Observed: 12/19/2017 Status: COMPLETED Source: [facility] 10:27 PM CLINIC OTHER CAMPUS REPOSITORY O ID: [id number] Author: Josie SpencerRn) JOSE Hsu Service: (none) Author Type: Registered Nurse Type: Nursing Progress Note Filed: 12/20/2017 1:44 AM Note Text: Nursing Progress Note Patient Name: Sherita Jurado Patient Location: [facility]0215/[id number] Daily Note: 192: bedside SBAR report received [...] RN PROGRESS Observed: 12/19/2017 Status: COMPLETED Source: [facility] 5:05 PM CLINIC OTHER CAMPUS REPOSITORY [facility]NO ID: [id number] Author: Juve Schultz MD Service: Hospital Medicine Author Type: Physician Type: Progress Notes Filed: 12/19/2017 5:05 PM Note Text: SERVICE DATE: 12/19/2017 SERVICE TIME: 5:05 PM HOSPITAL MEDICINE PROGRESS NOTE NIGHT AND WEEKEND COVERAGE: Nights: Please contact pager [phone]. Reason for Admission/Observation: Wandering from assisted and unable to be cared for there HOSPITAL DAY ZERO: 12/17/2017 Presentation: 72-year-old male with Parkinson's disease and schizophrenia who wandered from his assisted and was taken to [place] for medical clearance after being out PE for over 10 hours He was cleared medically sent to the assisted but sent back to the emergency department because a assisted since they could not stop him from wandering, he is progressively falling and weak and he is unable to eat because of tremor from his Parkinson's disease. Consultants: Dr. Mcfarland neurology Disposition: Extended Care Facility SUBJECTIVE Interval HPI:No chest pain or shortness of breath. The patient's being evaluated for a longterm facility still and the physical therapist believes [...] The patient had been functioning in a assisted and is now weak and falling and unable to feed himself and has begun wandering off and getting lost PLAN: PT OT and neurology evaluations with plans for longterm home placement at least temporarily C Physical [...] VTE Prophylaxis/Anticoagulants 12/17/17 223 pneumatic compression stockings ([place], [place]) 12/17/17 223 activity - mobilize patient ([place]) VTE Prophylaxis: VTE prophylaxis appropriate Plan of care discussed with: Patient, Case Management and RN SIGNATURE: Juve Schultz MD PATIENT NAME: Sherita Jurado DATE: December 19, 2017 TIME: 5:05 PM PAGER/CONTACT #: NUTRITION Observed: 12/19/2017 Status: COMPLETED Source: [facility] 12:49 PM CLINIC OTHER CAMPUS REPOSITORY [facility] ID: [id number] Author: Nga Eagle Service: Nutrition Therapy Author [...] seen by police and was taken to [place] ER. He was sent from [facility] to group home, however, he was sent from group home to [place] for further evaluation for the confusion episode. [...] Resting Metabolic Rate: 1510 Estimated kilocalorie needs: 0958-7525 kilocalories determined by 25-30 kcal/kg Estimated protein needs: 90-113 grams determined by 1.2-1.5 g/kg Dosing weight Estimated fluid needs: 6715-1153 milliliters based on 1 mL per kcal [...] (Active) Stage Injury 1 12/18/2017 12:00 AM Clin Application Specialist Related Pressure Injury No 12/18/2017 12:00 AM Dressing Status None: Open to Air 12/19/2017 10:00 AM Drainage Description None 12/19/2017 10:00 AM Drainage Amount None 12/19/2017 10:00 AM Odor No 12/19/2017 10:00 AM Wound Surface Color [place] 12/19/2017 10:00 AM Surrounding Skin Intact 12/19/2017 [...] CASE MANAGEM Observed: 12/19/2017 Status: COMPLETED Source: [facility] 12:27 PM CLINIC OTHER CAMPUS REPOSITORY [facility] ID: [id number] Author: Priyanka Robles (Lisw) Service: (none) Author Type: Wall Man Type: Care Mgt Progress Note Filed: 12/19/2017 12:30 PM Note Text: CARE MANAGEMENT PROGRESS NOTE SERVICE DATE: 12/19/2017 SERVICE TIME: 12:28 PM LOS: 0 days Needs Prior to Discharge: Precertification;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 PT/OT notes have been sent. [facility] to attempt precert from [place]. CM will continue to follow. SIGNATURE: BRIELLE Martinez [facility] PATIENT NAME: Sherita Jurado DATE: December 19, 2017 TIME: 12:27 PM PAGER/CONTACT #: [phone] CASE MANAGEM Observed: 12/19/2017 Status: COMPLETED Source: [facility] 9:41 AM [facility] OTHER CAMPUS REPOSITORY [facility] ID: [id number] Author: Priyanka Robles (Lisw) Service: (none) Author Type: Wall Man Type: Care Mgt Progress Note Filed: 12/19/2017 9:42 AM Note Text: CARE MANAGEMENT PROGRESS NOTE SERVICE DATE: 12/19/2017 SERVICE TIME: >now LOS: 0 days Needs Prior to Discharge: Accepting Facility;Discharge Transportation;Precertification BRIELLE sent PT note to [facility] and requested confirmation that they can accept and will start precert. BRIELLE is awaiting a response. CM will continue to follow. SIGNATURE: BRIELLE Martinez [facility] PATIENT NAME: Sherita Jurado DATE: December 19, 2017 TIME: 9:41 AM PAGER/CONTACT #: [phone] THERAPY NT Observed: 12/19/2017 Status: COMPLETED Source: [facility] 9:10 AM [facility] REPOSITORY [facility]NO ID: [id number] Author: Desi (Pt) Neeta Service: Physical Therapy Author Type: Physical Therapist Type: Therapy (PT/OT/Speech/Resp) Filed: 12/19/2017 9:25 AM Note Text: Physical Therapy Evaluation SERVICE DATE: 12/19/2017 SERVICE TIME: 824 to 54 ROOM: [place] [address] Recommended Discharge Disposition: Subacute/SNF Recommended Discharge Disposition [...] Unsteadiness on feet Interventions Provided: Evaluation;Gait Training (76195);Neuromuscular Reeducation (21518) $ Evaluation-Low (32066) Billed Units: 1 unit Gait Training (70078) Treatment Minutes: 13 1 unit Skilled Intervention(s): [...] of AD for safe ambulation Neuromuscular Re-Education (38760) Treatment Minutes: 10 1 unit Skilled Intervention(s): [...] Home Environment Patient Lives With: Facility Care (Intermediate) Assistance Available: 24 Hour Entry To Home: [...] AM CBC Collected: 12/19/2017 Status: F Source: [facility] 4:03 AM CLINIC OTHER CAMPUS REPOSITORY TYPE [...] 10.0 Performed By: #### CBC, BMP #### [facility] [address] [facility] [phone] BASIC METABOLIC PANL Collected: 12/19/2017 Status: F Source: [facility] 4:03 AM CLINIC OTHER CAMPUS REPOSITORY TYPE CODE TESTS RESULT OUT OF REFERENCE UNITS RANGE LAB GLU 74-99 mg/dL Glucose 92 Result Comment: The [place] Diabetes Association (ADA) provides guidance for cutoff [...] Standards of Medical Care in Diabetes 2016, [place] [employer]. Diabetes Care. 2016.39(Suppl 1). LAB [...] GFR. Performed By: #### CBC, BMP #### [facility] [address] [facility] [phone] CASE MGT INIT Observed: 12/18/2017 Status: COMPLETED Source: [facility] 6:19 PM CLINIC OTHER CAMPUS REPOSITORY [facility] ID: [id number] Author: Alesia Trevino (Sw) Service: Care Management Author Type: Wall Man Type: Care Mgt Initial Assessment Filed: 12/18/2017 6:43 PM Note Text: CARE MANAGEMENT: ASSESSMENT AND DISCHARGE PLAN SERVICE DATE: 12/18/2017 SERVICE TIME: 10:30AM PRIMARY CARE PHYSICIAN: David Hidalgo MD-verified ADMISSION STATUS: Observation Needs Prior to Discharge: To Be Determined;Accepting Facility;Bed Availability;Other: See Comment (Will follow for therapy recommendations. 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 Wandered away from assisted for over 8 hours Functional Status: Needs Assistance Does Patient Currently Receive Any Community Services or Home Care? None Psychiatry Dr. Holder of Equipment Prior to Admission: None Has the Patient Been in a Long-Term Facility in the Past 30 days? No SOCIAL: Living Arrangement: Home, Intermediate [facility] Lives With: N/A Patient From Facility Financial Resources: Disabled Primary Contact: Extended Emergency Contact Information Primary Emergency Contact: Martha Govea Address: [place] [address] [facility] Mobile Relation: Guardian Supportive: Yes Other Important Patient Contacts: MelissaConsumer Insight Manager: Alternate / cell Caregiver Assessment: Caregiver is ready, willing and able to meet the patient's needs as recommended by the inter-professional team? No and retirement can no longer meet the needs of [...] 0 I feel financially burdened by my [id number] expenses for my prescription medication: Disagree mostly [...] admitted to the hospital POTENTIAL TRANSITION PLANS Long-Term Facility/Intermediate Care Facility To Be Determined SW reviewed EMR. Pt. Is from [facility] assisted. Per the notes they are unable to [...] reports that he has recently been working w/[facility] to get pt. Placed at [facility]. Mr. Govea reports that he has a phone call scheduled w/[facility] [employer] to discuss pts. Medicaid (and getting it switched to fci). If possible, Mr. Govea would like pt. Discharged to [facility] from [facility]. will send them a referral and find [...] send the referral and PASRR determination to [facility] and follow for their response. SIGNATURE: Alesia Trevino DEAN OF [place], PEDRO, YENNY PATIENT NAME: Sherita Jurado DATE: December 18, 2017 TIME: 6:19 PM PAGER/CONTACT #: CONSULT Observed: 12/18/2017 Status: COMPLETED Source: [facility] 3:44 PM CLINIC OTHER CAMPUS REPOSITORY O ID: [id number] Author: Sylvia Mcfarland Service: Neurology Author Type: Physician Type: Consults Filed: 12/18/2017 8:13 PM Note Text: INITIAL CONSULT - GENERAL NEUROLOGY SERVICE DATE: 12/18/2017 Current Attending Provider: Juve Schultz MD Reason for Evaluation: worsening tremors Subjective HPI: This is Mr. Sherita Jurado a 72 year old male from assisted ,treated with antipsychotics for Schizophrenia and had extrapyramidal manifestations As side effects of these medications ,even Seroquel He was given Sinemet for secondary parkinson's,he is also on Amantadine , Recently he wandered from his assisted and was taken to [place] for medical clearance after being out PE for over 10 hours He was cleared medically sent to the assisted but sent back to the emergency department [...] cancer- referral made - Obesity - On fci drug therapy - Palpitations - Parkinson disease [...] disoriented to place ,thinks he is in [place] ,disoriented to day month and year ? [...] There is no psychiatrist for inpatient at [place] at this time Physical therapy and OT [...] 18, 2017 TIME: 3:44 PM PAGER/CONTACT #: [phone] THERAPY NT Observed: 12/18/2017 Status: COMPLETED Source: [facility] 2:30 PM [facility] REPOSITORY HNO ID: [id number] Author: Desi SpencerPtJulio César Santacruz Service: Physical Therapy Author Type: Physical Therapist Type: Therapy (PT/OT/Speech/Resp) Filed: 12/18/2017 2:30 PM Note Text: PHYSICAL THERAPY MISSED VISIT SERVICE DATE: 12/18/2017 SERVICE TIME: 1429 to 1429 ROOM: [place] [address] Attempted Evaluation. Patient not seen due to Another service at bedside (OT present). Will return as schedule permits. SIGNATURE: Desi Santacruz PT PATIENT NAME: Sherita Jurado DATE: December 18, 2017 TIME: 2:30 PM THERAPY NT Observed: 12/18/2017 Status: COMPLETED Source: [facility] 2:28 PM [facility] REPOSITORY [facility]NO ID: [id number] Author: Desi Santacruz Service: Physical Therapy Author Type: Physical Therapist Type: Therapy (PT/OT/Speech/Resp) Filed: 12/18/2017 2:28 PM Note Text: PHYSICAL THERAPY MISSED VISIT SERVICE DATE: 12/18/2017 SERVICE TIME: 1350 to 1350 ROOM: [place] [address] Attempted Evaluation. Patient not seen due to Eating. Will return as schedule permits. SIGNATURE: Desi Santacruz PT PATIENT NAME: Sherita Jurado DATE: December 18, 2017 TIME: 2:28 PM PROGRESS Observed: 12/18/2017 Status: COMPLETED Source: [facility] 10:58 AM [facility] REPOSITORY HNO ID: [id number] Author: Juve Schultz MD Service: Hospital Medicine Author Type: Physician Type: Progress Notes Filed: 12/18/2017 10:58 AM Note Text: SERVICE DATE: 12/18/2017 SERVICE TIME: 10:58 AM HOSPITAL MEDICINE PROGRESS NOTE NIGHT AND WEEKEND COVERAGE: Nights: Please contact pager [phone]. Reason for Admission/Observation: Wandering from assisted and unable to be cared for there HOSPITAL DAY ZERO: 12/17/2017 Presentation: 72-year-old male with Parkinson's disease and schizophrenia who wandered from his assisted and was taken to [place] for medical clearance after being out PE for over 10 hours He was cleared medically sent to the assisted but sent back to the emergency department because a assisted since they could not stop him from [...] was reviewed. Pulse ox Most recent Xrays/CT Parole Or Probation Officer CARE COORDINATION: No Patient Care Coordination [...] The patient had been functioning in a assisted and is now weak and falling and unable to feed himself and has begun wandering off and getting lost PLAN: PT OT and neurology evaluations with plans for longterm home placement at least temporarily C Physical debility 12/18/2017 - Present Current Assessment AND Plan Assessment: Apparently falling and weak which are new along with his increased confusion making unmanageable and non-locked facility PLAN: PT and OT evaluation D Schizophrenia ([facility]) 09/07/2017 - Present Overview Continue Quetiapine 50mg BID M Parkinsonism ([facility]) 09/05/2017 - Present Overview Continue carbidopa/levodopa Will consult Neurology if any of his current medications need to be changed given this incident Medication and Non-Pharmacologic VTE Prophylaxis/Anticoagulants 12/17/172229 pneumatic compression stockings ([place], [place]) 12/17/172229 activity - mobilize patient ([place], [place]) VTE Prophylaxis: VTE prophylaxis appropriate Plan of care discussed with: Patient, Case Management and RN SIGNATURE: Juve Schultz MD PATIENT NAME: Sherita Jurado DATE: December 18, 2017 TIME: 10:58 AM PAGER/CONTACT #: CBC Collected: 12/18/2017 Status: F Source: [facility] 6:25 AM [facility] OTHER CAMPUS REPOSITORY TYPE CODE TESTS [...] 9.9 Performed By: #### CBC, BMP #### [facility] [address] [facility] [phone] BASIC METABOLIC PANL Collected: 12/18/2017 Status: F Source: [facility] 6:25 AM [facility] OTHER [place] REPOSITORY TYPE CODE TESTS RESULT OUT OF REFERENCE UNITS RANGE LAB GLU 74-99 mg/dL Glucose 99 Result Comment: The [place] [employer] Association (ADA) provides guidance for cutoff [...] Standards of Medical Care in Diabetes 2016, [place] [employer]. Diabetes Care. 2016.39(Suppl 1). LAB [...] Performed By: #### CBC, BMP #### [facility] [address] [facility] [phone] NURSING PROG Observed: 12/18/2017 Status: COMPLETED Source: [place] 6:19 AM CLINIC OTHER CAMPUS REPOSITORY [facility] ID: [id number] Author: Mirna (Rn) JOSE Watson Service: (none) Author Type: Registered Nurse Type: Nursing Progress Note Filed: 12/18/2017 6:24 AM Note Text: Nursing Progress Note Patient Name: Sherita Jurado Patient Location: [place] [address]/AB-[id number]-0319-2 Daily Note: Patient did not receive his [...] NURSING PROG Observed: 12/18/2017 Status: COMPLETED Source: [place] 5:53 AM [facility] REPOSITORY HNO ID: [id number] Author: Mirna Watson RN Service: (none) Author Type: Registered Nurse Type: Nursing Progress Note Filed: 12/18/2017 5:57 AM Note Text: Nursing Progress Note Patient Name: Sherita Jurado Patient Location: [facility] [id number] Daily Note: 0030, patient sleeping, resps easy on room air. No complaints. 0230 Patient is sleeping soundly. Patient has been very pleasant and cooperative. 0430 Asleep. No complaints. Safety maintained. This note was completed by: Mirna Watson RN NURSING PROG Observed: 12/18/2017 Status: COMPLETED Source: [place] 4:30 AM [facility] REPOSITORY HNO ID: [id number] Author: Mirna Watson RN Service: (none) Author Type: Registered Nurse Type: Nursing Progress Note Filed: 12/18/2017 4:34 AM Note Text: Nursing Progress Note Patient Name: Sherita Jurado Patient Location: [facility]-0215/[id number] Daily Note: Patient to the floor at [...] RN AMMONIA Collected: 12/17/2017 Status: F Source: [place] 11:23 PM [facility] REPOSITORY TYPE CODE TESTS RESULT OUT OF REFERENCE UNITS RANGE LAB NH3 16-60 umol/L Ammonia 25 Performed By: #### NH3 #### [place] [address] TSH Collected: 12/17/2017 Status: F Source: [place] 11:23 PM [facility] REPOSITORY TYPE CODE TESTS RESULT OUT OF RANGE REFERENCE UNITS LAB TSH 0.400-5.500 uU/mL TSH 2.690 Performed By: #### TSH #### [place] [address] #### B12 #### [facility] [address] [phone] VITAMIN B12 Collected: 12/17/2017 Status: F Source: [place] 11:23 PM [facility] REPOSITORY TYPE CODE TESTS RESULT OUT OF REFERENCE UNITS RANGE LAB B12 232-1245 pg/mL Vitamin B12 329 Performed By: #### TSH #### [place] [address] #### B12 #### [facility] [address] [address] HISTORY PHYSICAL Observed: 12/17/2017 Status: COMPLETED Source: [place] 10:16 PM [facility] REPOSITORY HNO ID: [id number] Author: Corona Bruce Service: General Internal Medicine [...] seen by police and was taken to [facility]. He was sent from [facility] to group home, however, he was sent from group home to [place] for further evaluation for the confusion episode. [...] cancer- referral made - Obesity - On fci drug therapy - Palpitations - Parkinson disease [...] 8110 URINALYSIS Collected: 12/17/2017 Status: F Source: [place] 7:52 PM [facility]AMP[facility] REPOSITORY TYPE CODE TESTS RESULT OUT OF RANGE REFERENCE UNITS LAB UCOL Yellow Color Yellow LAB [facility] Clear Clarity Clear LAB UGLUC Negative mg/dL Glucose, Urine Negative LAB UBIL Negative Bilirubin, Urine Negative LAB UKET Negative Ketones, Abnormal Urine Trace Alert LAB USPG 1.001-1.029 Specific [place], Ur 1.020 LAB UHGB Negative Abnormal Hemoglobin/Blood, Moderate Alert Ur LAB UPH 5.0-8.0 pH 7.0 LAB UPROT Negative mg/dL Protein, Urine Negative LAB UUROB 0.2-1.0 Urobilinogen 1.0 LAB UNITR Negative Nitrites Negative LAB ULKEST Negative Leukest Negative Performed By: #### UA, UTOX2, UAMIC #### [facility] [address] [place] [address] TOXICOLOGY SCREEN,UR Collected: 12/17/2017 Status: F Source: [place] 7:52 PM [facility] REPOSITORY TYPE CODE TESTS [...] on the same specimen through Client Services ([phone]) if contacted within 48 hours of initial testing. [1]Substance Abuse and Mental Health Services Administration (2012). Clinical Drug Testing in Primary Care Technical Assistance Publication Series 32. Department of Health and Human Services, [place], p.10. Performed By: #### UA, UTOX2, UAMIC #### [facility] [address] [place] [address] URINE MICROSCOPIC Collected: 12/17/2017 Status: F Source: [place] (FOR LAB USE ONLY) 7:52 PM CLINIC OTHER CAMPUS REPOSITORY TYPE CODE TESTS RESULT OUT OF RANGE REFERENCE UNITS LAB UWBC 0-5 /HPF WBC 0-5 LAB URBC 0-3 /HPF Abnormal Alert RBC 5-10 LAB UCAST 0 /LPF Cast SEE COMMENT Result Comment: 0 LAB UCRYS 0 /HPF Abnormal Alert Crystals SEE COMMENT Result Comment: Occasional Amorphous Performed By: #### UA, UTOX2, UAMIC #### [facility] [address] [place] [address] ED NOTE Observed: 12/17/2017 Status: COMPLETED Source: [place] 7:51 PM [facility] REPOSITORY HNO ID: [id number] Author: Mya SpencerRn) JOSE Brady Service: (none) Author Type: Registered Nurse Type: ED Notes Filed: 12/17/2017 7:51 PM Note Text: Clean catch urine specimen obtained and sent. ED NOTE Observed: 12/17/2017 Status: COMPLETED Source: [place] 6:41 PM [facility] REPOSITORY HNO ID: [id number] Author: Diana SpencerRn) Sherry, JOSE Service: (none) Author Type: Registered Nurse Type: ED Notes Filed: 12/17/2017 6:42 PM Note Text: Patient returned to the Emergency Department. CT BRAIN WO IVCON Observed: 12/17/2017 Status: F Source: [place] 6:37 PM [facility]IN[facility] OTHER CAMPUS REPOSITORY * * *Final Report* * * DATE OF EXAM: Dec 17 2017 6:37PM [facility] [place] BRAIN WO IVCON / [...] IMPRESSION: No acute intracranial process is seen. Belt Polisher: PSCB Transcribe Date/Time: Dec 17 2017 6:40P Dictated by : JESSE RESENDIZ MD This examination was interpreted and the report reviewed and electronically signed by: JESSE RESENDIZ MD on Dec 17 2017 6:41PM EST [id number] ED NOTE Observed: 12/17/2017 Status: COMPLETED Source: [place] 6:31 PM [facility] REPOSITORY HNO ID: [id number] Author: Diana (Rn) JOSE Powell Service: (none) Author Type: Registered Nurse Type: ED Notes Filed: 12/17/2017 6:31 PM Note Text: Patient transported to CT scan with Tech. XR FOOT 3V AP/LAT/OBL Observed: 12/17/2017 Status: F Source: [facility] 6:26 PM [facility] REPOSITORY * * *Final [...] enthesophytes. IMPRESSION: No evidence of acute process. Belt Polisher: WILLOW Transcribe Date/Time: Dec 17 2017 6:50P Dictated by : GHISLAINE LYONS MD This examination was interpreted and the report reviewed and electronically signed by: GHISLAINE LYONS MD on Dec 17 2017 6:51PM EST [id number] CBC AND DIFFERENTIAL Collected: 12/17/2017 Status: F Source: [place] 6:25 PM CLIN[facility] OTHER CAMPUS REPOSITORY TYPE [...] k/uL Abs Lymph 1.36 LAB AMONO % [place]% 5.0 LAB AAMONO <0.87 k/uL Abs [place] 0.69 LAB AEOS % Eosin% 0.6 LAB AAEOS <0.46 k/uL Abs Eosin 0.08 LAB ABASO % Baso% 0.2 LAB AABASO <0.11 k/uL Abs Baso 0.03 Performed By: #### CBCDIF, ALCO, CMP, MG1 #### [facility] [address] [place] [address] ETHANOL Collected: 12/17/2017 Status: F Source: [place] 6:25 PM [facility] OTHER CAMPUS REPOSITORY TYPE CODE TESTS RESULT OUT OF REFERENCE UNITS RANGE LAB ALCO <11 mg/dL Ethanol <11 Performed By: #### CBCDIF, ALCO, CMP, MG1 #### [facility] [address] [facility] [phone] COMP METABOLIC PANEL Collected: 12/17/2017 Status: F Source: [place] 6:25 PM [facility]IN[facility] OTHER CAMPUS REPOSITORY TYPE [...] 74-99 mg/dL Glucose 96 Result Comment: The [place] Diabetes Association (ADA) provides guidance for cutoff [...] Standards of Medical Care in Diabetes 2016, [place] [employer] Association. Diabetes Care. 2016.39(Suppl 1). LAB [...] By: #### CBCDIF, ALCO, CMP, MG1 #### [facility] [address] [facility] [phone] MAGNESIUM Collected: 12/17/2017 Status: F Source: [place] 6:25 PM [facility] REPOSITORY TYPE CODE TESTS RESULT OUT OF REFERENCE UNITS RANGE LAB MG 1.7-2.3 mg/dL Magnesium 2.0 Performed By: #### CBCDIF, ALCO, CMP, MG1 #### [facility] [address] [place] [address] ED NOTE Observed: 12/17/2017 Status: COMPLETED Source: [place] 6:20 PM [facility] REPOSITORY HNO ID: [id number] Author: Lis (Rn) JOSE Rowe Service: Nursing Author Type: Registered Nurse Type: ED Notes Filed: 12/17/2017 6:20 PM Note Text: Portable xray at bedside. ED PROV NOTE Observed: 12/17/2017 Status: COMPLETED Source: [place] 6:16 PM [facility] REPOSITORY HNO ID: [id number] Author: Avi Stone MD Service: Emergency Medicine Author Type: Physician Type: ED Provider Notes Filed: 12/17/2017 9:14 PM Note Text: ED Provider Note Patient Name: Sherita Jurado SERVICE DATE: 12/17/17 History Patient presents with: Fall: Left facility yesterday and was wandering for 10 hours found by [email or web address] police. Abrasion 72 year old female with [...] found by police. He was seen at [facility] yesterday and was evaluated and d/c back to the group home. custodial called his PCP today who told them [...] cancer- referral made - Obesity - On intermediate manager drug therapy - Palpitations - Parkinson disease [...] Result IMPRESSION: No evidence of acute process. Belt Polisher: WILLOW Transcribe Date/Time: Dec 17 2017 6:50P Dictated by : GHISLAINE LYONS MD This examination was interpreted and the report reviewed and electronically signed by: GHISLAINE LYONS MD on Dec 17 2017 6:51PM EST CT BRAIN WO IVCON Final Result IMPRESSION: No acute intracranial process is seen. Belt Polisher: WILLOW Transcribe Date/Time: Dec 17 2017 6:40P [...] Abs Lymph 1.36 1.00 - 4.00 k/uL [place]% 5.0 % Abs [place] 0.69 <0.87 k/uL Eosin% 0.6 % Abs [...] Negative Ketones, Urine Trace (A) Negative Specific [place], Ur 1.020 1.001 - 1.029 Hemoglobin/Blood,Ur Moderate [...] Stone. This note was partially generated using Normal voice recognition system, and there may be some incorrect words, spellings, and punctuation that were not noted in checking the note before saving SIGNATURE: Jeffrey Hodges PA-C Attending Note I have personally performed a face to face assessment of the patient and have reviewed the PA/SENIOR INSTRUCTOR note. My veronn findings include: History - Mr. Jurado is a pleasant 72-year-old male presenting today with a history of Parkinson's and schizophrenia, living in a assisted and doing well for a long time, here after he left the facility and got lost for about 10 hours in 90? plus heat yesterday. He injured his left great toe and second toe and the medical records specialist where he lives, Dr. Hidalgo, was very concerned when she saw him today that she would no longer be able to care for medical assisted safely. She wanted him admitted for placement. [...] WBC still minimally up (was yesterday at [place] as well, a bit better). No UTI. CT brain ok. Will admit to hospitalist for placement as unable to do from here. Other additions or changes: None Signature: Avi Stone MD Date: 12/17/2017 Time: 7:27 PM Jeffrey Hodges (Pa) [id number] Avi Stone MD [id number]/17/[id number] ED NOTE Observed: 12/17/2017 Status: COMPLETED Source: [place] 6:05 PM [facility] REPOSITORY HNO ID: [id number] Author: Diana SpencerRn) JOSE Powell Service: (none) Author Type: Registered Nurse Type: ED Notes Filed: 12/17/2017 6:11 PM Note Text: Ino Hodges PA-C in to evaluate patient and speaking with caregiver PROGRESS Observed: 12/17/2017 Status: COMPLETED Source: [place] 3:25 PM [facility] REPOSITORY HNO ID: [id number] Author: David Hidalgo Service: (none) Author Type: Physician Type: Progress Notes Filed: 12/17/2017 4:23 PM Note Text: Subjective: Sherita Jurado is a 72 year old White male, Patient presents with: ER F/U: pt has scratches, is sunburned, 2 purple toes, ect . HPI He was at his assisted and then was missing for ~ 11 hrs and then was found unconscious ~ 2 miles from his assisted. Was taken to the ER yesterday. He [...] his possible transfer to SNF. Currently his assisted and guardian are in the process of [...] cancer- referral made - Obesity - On intermediate manager drug therapy - Palpitations - Parkinson disease [...] he [facility] - [facility] B/L UE tremors Cr II-XII grossly intact [...] found unconscious after was missing from his assisted. Will check - CT BRAIN WO IVCON Pt also with increased confusion and has no recollection of the events from yesterday. 4. Multiple bruises - ICD9: 924.8, ICD10: T07.XXXA 5. Abrasions of multiple sites - ICD9: 919.0, ICD10: T07.XXXA Local wound care. D/w caregiver - they dont feel comfortable keeping the pt at assisted. My recommendation is that he should be hospitalized and then likely SNF placement. Will order CT head/ Xray foot stat and will call [place] hospitalist for direct admission per caregiver request. Discussed above plan with patient. Pt agreeable with above plan. David Hidalgo MD This note was partially generated using Normal voice recognition system, and there may be some incorrect words, spellings, and punctuation that were not noted in checking the note before saving. CNOV Observed: 12/17/2017 Status: COMPLETED Source: [place] 3:00 PM [facility] REPOSITORY Office Visit (AGINTMLW) SHERITA JURADO ([id number]) 1945 M Date Time Provider Department 12/17/17 3:00 PM DAVID HIDALGO AGINTMLJonny During your visit today, we recorded the following information about you: Temperature Pulse Respiration Blood pressure 98.1 degrees 72/minute 16/minute 106/64 Weight Height 77 kg 1.778 m David Hidlago MD 12/17/2017 4:23 PM Signed Subjective: Sherita Jurado is a 72 year old White male, Patient presents with: ER F/U: pt has scratches, is sunburned, 2 purple toes, ect . HPI He was at his assisted and then was missing for ~ 11 hrs and then was found unconscious ~ 2 miles from his assisted. Was taken to the ER yesterday. He [...] his possible transfer to SNF. Currently his assisted and guardian are in the process of [...] cancer- referral made - Obesity - On intermediate manager drug therapy - Palpitations - Parkinson disease [...] he states that [facility] is [facility], president - [place] B/L [...] found unconscious after was missing from his assisted. Will check - CT BRAIN WO IVCON Pt also with increased confusion and has no recollection of the events from yesterday. 4. Multiple bruises - ICD9: 924.8, ICD10: T07.XXXA 5. Abrasions of multiple sites - ICD9: 919.0, ICD10: T07.XXXA Local wound care. D/w caregiver - they dont feel comfortable keeping the pt at assisted. My recommendation is that he should be hospitalized and then likely SNF placement. Will order CT head/ Xray foot stat and will call [place] hospitalist for direct admission per caregiver request. Discussed above plan with patient. Pt agreeable with above plan. David Hidalgo MD This note was partially generated using Normal voice recognition system, and there may be [...] [T07.XXXA] Order(s):XR FOOT GENERAL 3V AP/LAT/OBL LT [[id number]] Order #: [id number] FUTURE CT BRAIN WO IVCON [[id number]] Order #: [id number] FUTURE Prescriptions as of 12/17/2017 Sig: CARBOXYMETHYLCELLULOSE [...] ED NOTE Observed: 12/16/2017 Status: COMPLETED Source: [place] 10:18 PM [facility] REPOSITORY HNO ID: [id number] Author: rBuce Watts) Juan J RN Service: Emergency Medicine Author Type: Registered Nurse Type: ED Notes Filed: 12/16/2017 10:19 PM Note Text: Staff arrives from [facility] to take pt back. Discharge instructions reviewed. Denies questions. Pt ambulated self out with [facility] staff. ED NOTE Observed: 12/16/2017 Status: COMPLETED Source: [place] 10:00 PM [facility] REPOSITORY HNO ID: [id number] Author: Bruce Watts) JOSE Arita Service: Emergency Medicine Author Type: Registered Nurse Type: ED Notes Filed: 12/16/2017 10:18 PM Note Text: Diana from [facility] called paramedic supervisor stating guardian called her and states he wants patient back at [facility] and that they are to come picking belt operator pt from ED ED NOTE Observed: 12/16/2017 Status: COMPLETED Source: [place] 9:25 PM [facility] REPOSITORY HNO ID: [id number] Author: Bruce Watts) Juan J RN Service: Emergency Medicine Author Type: Registered Nurse Type: ED Notes Filed: 12/16/2017 9:25 PM Note Text: Called Conrad Govea patients guardian, no answer, left message to call [place] ER. ED NOTE Observed: 12/16/2017 Status: COMPLETED Source: [place] 9:15 PM [facility] REPOSITORY HNO ID: [id number] Author: Bruce Watts) Juan J RN Service: Emergency Medicine Author Type: Registered Nurse Type: ED Notes Filed: 12/16/2017 9:25 PM Note Text: Shawanda from [facility] called said she got a hold of guardian and told him to call Diana at [facility] nd discuss the plan of care for patient. ED NOTE Observed: 12/16/2017 Status: COMPLETED Source: [place] 9:02 PM [facility] REPOSITORY HNO ID: [id number] Author: Bruce Watts) Juan J RN Service: Emergency Medicine Author Type: Registered Nurse Type: ED Notes Filed: 12/16/2017 9:02 PM Note Text: After 3 attempts from pt to obtain clean catch urine, straight cath specimen was obtained. ED NOTE Observed: 12/16/2017 Status: COMPLETED Source: [place] 9:01 PM [facility] REPOSITORY HNO ID: [id number] Author: Bruce SpencerRn) Juan J RN Service: Emergency Medicine Author Type: Registered Nurse Type: ED Notes Filed: 12/16/2017 9:02 PM Note Text: Straight cath urine specimen obtained and sent. URINALYSIS ROUTINE Collected: 12/16/2017 Status: F Source: [facility] 8:55 PM HEALTH SYSTEM REPOSITORY TYPE [...] NEGATIVE LAB LSPG(LOINC 1.005-1.030 ) Specific 1.015 [place], Ur LAB LPHUR(LOIN 5.0-8.0 C) pH,Urine 6.5 [...] Cast 0-1 Performed By: #### LURIN #### [place] [address] ED NOTE Observed: 12/16/2017 Status: COMPLETED Source: [place] 8:22 PM [facility] REPOSITORY HNO ID: [id number] Author: Bruce Watts) Juan J, RN Service: Emergency Medicine Author Type: Registered Nurse Type: ED Notes Filed: 12/16/2017 8:25 PM Note Text: Spoke with Shawanda from [facility] again, states she cannot get a hold of guardian. States he doesn't not meet criteria for admission through them. States we need to continue to try to reach guardian or Speak with diana at [facility]. ED NOTE Observed: 12/16/2017 Status: COMPLETED Source: [place] 7:40 PM [facility] REPOSITORY HNO ID: [id number] Author: Bruce SpencerRn) Juan J, RN Service: Emergency Medicine Author Type: Registered Nurse Type: ED Notes Filed: 12/16/2017 8:12 PM Note Text: Spoke with Shawanda from [facility], states Diana from [facility] called her to come assess pt. Shawanda states she does not feel patient meets criteria for them to come assess him. States she was going to call patients guardian to discuss the situation. Confirmed phone number with our paperwork. States she will call back. ED PROV NOTE Observed: 12/16/2017 Status: COMPLETED Source: [place] 7:38 PM [facility] REPOSITORY HNO ID: [id number] Author: Eusebio Xiao DO Service: Emergency Medicine Author Type: Physician Type: ED Provider Notes Filed: 12/16/2017 10:41 PM Note Text: ED Provider Note Patient Name: Sherita Jurado SERVICE DATE: 12/16/17 History Patient presents with: Altered Level Of Consciousness patient presents by EMS after he was found wandering along the road. Per EMS the patient has been missing from his assisted since approximately 1 AM. The patient tells [...] cancer- referral made - Obesity - On fci drug therapy - Palpitations - Parkinson disease [...] 1.03 (*) 1.50 - 3.65 thou/cmm Abs. [place] 1.18 (*) 0.20 - 1.00 thou/cmm All [...] that the facility where he lived the paramedic supervisor was insisting that they see him and [...] the nurses who have spoken with the airflight attendants supervisor is that they are actively trying to [...] ED NOTE Observed: 12/16/2017 Status: COMPLETED Source: [place] 7:16 PM [facility] REPOSITORY HNO ID: [id number] Author: Silva SpencerRn) JOSE Kennedy Service: Emergency Medicine Author Type: Registered Nurse Type: ED Notes Filed: 12/16/2017 7:17 PM Note Text: Nelia called back and said she will come out and evaulate pt d/t diana being upset. Pt sitting calm and quietly on cart. No distress noted. ED NOTE Observed: 12/16/2017 Status: COMPLETED Source: [place] 6:53 PM [facility] REPOSITORY HNO ID: [id number] Author: Brittany SpencerRn) JOSE Roberts Service: Emergency Medicine Author Type: Registered Nurse Type: ED Notes Filed: 12/16/2017 6:54 PM Note Text: Nelia calling from [facility] and states she cannot come out to do a psych eval if the patient is not suicidal or having hallucinations. She suggests for Diana to call nursing homes first thing in the morning for placement. Nursing paramedic supervisor aware and will call Diana to update. ED NOTE Observed: 12/16/2017 Status: COMPLETED Source: [place] 6:14 PM [facility] REPOSITORY HNO ID: [id number] Author: Brittany SpencerRn) JOSE Roberts Service: Emergency Medicine Author Type: Registered Nurse Type: ED Notes Filed: 12/16/2017 6:17 PM Note Text: [facility] contacted for possible psych admission evaluation as requested by Diana (director of [facility]). Awaiting callback. ED NOTE Observed: 12/16/2017 Status: COMPLETED Source: [place] 5:40 PM [facility] REPOSITORY HNO ID: [id number] Author: Brittany SpencerRn) JOSE Roberts Service: Emergency Medicine Author Type: Registered Nurse Type: ED Notes Filed: 12/16/2017 5:40 PM Note Text: Dr. Fernandez calling back to speak with Dr. Nieves. Dr. Fernandez not accepting pt at this time. ED NOTE Observed: 12/16/2017 Status: COMPLETED Source: [place] 5:35 PM [facility] REPOSITORY HNO ID: [id number] Author: Brittany SpencerRn) JOSE Roberts Service: Emergency Medicine Author Type: Registered Nurse Type: ED Notes Filed: 12/16/2017 6:31 PM Note Text: Reinaldo from [facility] calling and states I just wanted to make sure you are aware that Diana called me and said the patient is not able to come back to [facility]. Reinaldo informed we are aware and states to call him back for any questions. ED NOTE Observed: 12/16/2017 Status: COMPLETED Source: [place] 5:21 PM [facility] REPOSITORY HNO ID: [id number] Author: Brittany SpencerRn) JOSE Roberts Service: Emergency Medicine Author Type: Registered Nurse Type: ED Notes Filed: 12/16/2017 5:21 PM Note Text: Dr. Hidalgo paged through answering service for possible admission. CHEST 2 VIEWS Observed: 12/16/2017 Status: F Source: [facility] 5:18 PM HEALTH SYSTEM REPOSITORY Performed [...] ED NOTE Observed: 12/16/2017 Status: COMPLETED Source: [place] 5:10 PM [facility] REPOSITORY HNO ID: [id number] Author: Brittany SpencerRn) JOSE Roberts Service: Emergency Medicine Author Type: Registered Nurse Type: ED Notes Filed: 12/16/2017 5:26 PM Note Text: Diana Diane, Director of [facility], calling to state that if pt is going to be discharged from the ER, he is not welcome to come back to [facility] d/t being an un-safe flight risk. [...] is unsafe to release him back to [facility]. HEMOGRAM/MANUAL DIFF Collected: 12/16/2017 Status: F Source: JOSE F 3:40 PM [facility] SYSTEM REPOSITORY TYPE CODE TESTS RESULT OUT [...] LAB LMONN(LOIN 0.20-1.00 thou/cmm C) Abs. High [place] 1.18 LAB LEOSN(LOIN 0.00-0.41 thou/cmm C) Abs. Eosin 0.00 LAB LBASN(LOIN 0.00-0.08 thou/cmm C) Abs. Baso 0.00 LAB LPLES(LOIN C) Platelet Estimate Normal LAB LRBCM(LOIN C) RBC Morphology Normal Performed By: #### LMCBD #### [facility] [address] [address] TROPONIN I Collected: 12/16/2017 Status: F Source: [facility] 340 HEALTH SYSTEM REPOSITORY TYPE CODE TESTS RESULT OUT OF REFERENCE UNITS RANGE LAB LTRP(LOINC) <=0.07 ng/mL Troponin I 0.05 Performed By: #### LTRP #### [facility] [address] [place] [address] COMPREHENSIVE PANEL Collected: 12/16/2017 Status: F Source: [facility] 3:40 HEALTH SYSTEM REPOSITORY TYPE CODE TESTS RESULT OUT OF REFERENCE UNITS RANGE LAB STEAM TRAP WORKER(LOINC) 136-145 mEq/L Sodium Blood 138 LAB LK(LOINC) [...] LP14 #### [facility] [address] [address] CPK Collected: 12/16/2017 Status: F Source: [facility] 340 [facility]ALTH SYSTEM REPOSITORY TYPE CODE TESTS RESULT OUT OF RANGE REFERENCE UNITS LAB LCK(LOINC) 39-308 U/L CPK 174 Performed By: #### LCK #### [facility] [address] [place], [place] [address] MDRD EGFR Collected: 12/16/2017 Status: F Source: [facility] 3:40 PM HEALTH SYSTEM REPOSITORY TYPE CODE TESTS RESULT OUT OF RANGE REFERENCE UNITS LAB LGFRF(LOINC >60mL/min/1.73m ) 2 eGFR >60 Result Comment: If the patient is , multiply the result by 1.210. Performed By: #### LGFR #### [facility] [address] [place], [place] [address] ED NOTE Observed: 12/16/2017 Status: COMPLETED Source: [place] 3:38 PM [facility] REPOSITORY HNO ID: [id number] Author: Brittany SpencerRn) JOSE Roberts Service: Emergency Medicine Author Type: Registered Nurse Type: ED Notes Filed: 12/16/2017 3:39 PM Note Text: Pt was reported missing from assisted around 1am this morning. Pt was found a little while ago lying down in someones yard. Brought to Er by ems. PROGRESS Observed: 12/10/2017 Status: COMPLETED Source: [place] 10:35 AM [facility] REPOSITORY HNO ID: [id number] Author: David Hidalgo Service: (none) Author Type: [...] cancer- referral made - Obesity - On fci drug therapy - Palpitations - Parkinson disease [...] Alert [facility] year [facility], current president [...] issues with parkinson's and difficulty with ADLs. retirement unable to take care of pt. Agree with placement to SNF. Discussed above plan with patient/ caregiver. Pt / caregiver agreeable with above plan. Guardian was informed of need for placement to SNF 11/12/17. David Hidalgo MD This note was partially generated using Normal voice recognition system, and there may be some incorrect words, spellings, and punctuation that were not noted in checking the note before saving. CNOV Observed: 12/10/2017 Status: COMPLETED Source: [place] 10:20 AM [facility] REPOSITORY Office Visit (AGINTMLW) SHERITA JURADO ([id number]) 1945 M Date Time Provider Department 12/10/17 [...] No changes per caregiver. Guardian looking at [facility] facilities for placement. B12 monthly inj - last dose 11/19/17 - next appt 12/22/17 PAST MEDICAL HISTORY Diagnosis Date - Actinic keratosis - Breast lump LT breast; cavernous hemangioma/excised - Dizziness - Epidermoid cyst of skin - Falls - Lipoma of skin forearms and abdomen - Mammogram abnormal suspicious of cancer- referral made - Obesity - On fci drug therapy - Palpitations - Parkinson disease [...] Alert - [facility], current year is 2017, current president [...] issues with parkinson's and difficulty with ADLs. retirement unable to take care of pt. Agree with placement to SNF. Discussed above plan with patient/ caregiver. Pt / caregiver agreeable with above plan. Guardian was informed of need for placement to SNF 11/12/17. David Hidalgo MD This note was partially generated using Normal voice recognition system, and there may be some incorrect words, spellings, and punctuation that were not noted in checking the note before saving. Referring Provider: DAVID HIADLGO [[id number]] Allergies As of Date: 12/10/2017 Noted Allergy Reaction GOOSE FEATHERS ALLERGENIC EXTRACT 11/08/2016 16 - Unknown ZYPREXA (OLANZAPINE) 11/08/2016 16 - Unknown Date Reviewed: 11/12/2017 Reviewed by: Brigid (Care Clinician) Robert - Fully Assessed Reason for Visit: [...] 12/17/17 PROGRESS Observed: 11/19/2017 Status: COMPLETED Source: [place] 11:41 AM [facility] REPOSITORY HNO ID: [id number] Author: Rosalba Wilkinson Service: (none) Author Type: Gravel Hauler Type: Progress Notes Filed: 11/19/2017 11:53 AM Note Text: Patient has been identified by name and date of : Yes Sherita is here for an injection of Vitamin B12 Dose: 1000mcg/ml Route: Intramuscular Given without incident. Site: right deltoid Intelligence Agent: [employer]. Lot #: [id number] [facility] #: [id number] Expiration Date: 01/2019 Dr. Hidalgo present in clinic at time of injection. The date due for the next injection is 1 month. Rosalba Wilkinson MA CNNURSE Observed: 11/19/2017 Status: COMPLETED Source: [place] 11:20 AM [facility] REPOSITORY Nurse Visit (AGINTMLW) SHERITA JURADO ([id number]) 1945 Date Time Provider Department 11/19/17 11:20 [...] Intramuscular Given without incident. Site: right deltoid Intelligence Agent: [employer]. Lot #: [id number] [facility] #: [id number] Expiration Date: 01/2019 Dr. Hidalgo present in clinic at time of injection. The date due for the next injection is 1 month. Rosalba Wilkinson MA Referring Provider: DAVID HIDALGO [[id number]] Allergies As of Date: 11/19/2017 Noted Allergy Reaction GOOSE FEATHERS ALLERGENIC EXTRACT 11/08/2016 16 - Unknown ZYPREXA (OLANZAPINE) 11/08/2016 16 - Unknown Date Reviewed: 11/12/2017 Reviewed by: Brigid Mejia) Robert - Fully Assessed Reason for Visit: B-12 Injection [247] Primary Visit Diagnosis:B12 deficiency [E53.8] Order(s):ADMIN VITAMIN B12 INJ [[id number]] Order #: [id number] [START ON 11/20/2017] cyanocobalamin 1,000 mcg injectionDisp: [...] Service: OFFICE VISIT NO CHARGE WITH PROCEDURE [[id number]] LOS history recorded Follow-up and Disposition History Recorded Encounter Status:Closed by ROSALBA WILKINSON MA on 11/19/17 BASIC PANEL Collected: 11/12/2017 Status: F Source: [facility] 11:51 AM HEALTH SYSTEM REPOSITORY TYPE CODE TESTS RESULT OUT OF REFERENCE UNITS RANGE LAB STEAM TRAP WORKER(LOINC) 136-145 mEq/L Low Sodium Blood 134 LAB [...] 21 Ratio Performed By: #### LP8 #### [place] [address] MDRD EGFR Collected: 11/12/2017 Status: F Source: [facility] 11:51 AM HEALTH SYSTEM REPOSITORY TYPE CODE TESTS RESULT OUT OF RANGE REFERENCE UNITS LAB LGFRF(LOINC >60mL/min/1.73m ) 2 eGFR >60 Result Comment: If the patient is , multiply the result by 1.210. Performed By: #### LGFR #### [place] [address] VITAMIN B12 Collected: 11/12/2017 Status: F Source: [facility] 11:51 AM HEALTH SYSTEM REPOSITORY TYPE CODE TESTS RESULT OUT OF REFERENCE UNITS RANGE LAB B12(LOINC) 193-986 pg/mL Vitamin B12 295 Performed By: #### B12 #### [place] [address] PROGRESS Observed: 11/12/2017 Status: COMPLETED Source: [place] 10:04 AM [facility] REPOSITORY HNO ID: [id number] Author: David Hidalgo Service: (none) Author Type: Physician Type: Progress Notes Filed: 11/13/2017 9:54 AM Note Text: Subjective: Sherita Jurado is a 72 year old White male, Patient presents with: Discussion: group home option . HPI Pt here with Neva( caregiver) Patient was hospitalized 09/03-09/07/17 at [facility] then transferred to [facility] and was discharged back to assisted on 09/12/17. He was hospitalized for worsening tremors, difficulty performing ADLs and frequent falls, he was evaluated by neurology and was recommended to be transferred to [facility] for neurology and psychiatry collaboration. It was [...] cancer- referral made - Obesity - On intermediate manager drug therapy - Palpitations - Parkinson disease [...] H53.8 Unclear timeline, but will call pt's non destructive testing engineer to get seen urgently. 5. BP lower [...] may be able to return to the assisted. But as stated above assisted is not able to provide all the care and it will be best for the pt to be at a SNF. Discussed above plan with patient and caregiver - Neva. They are agreeable with above plan. Addendum - spoke with [facility] - appt arranged for 11/15/17 at 10 AM at [place] - information communicated to Neva and PHUONG. Spoke with Mr. Cole (POA) - conveyed above information, he is agreeable to getting pt placed at SNF. He will make arrangements and contact my office for any further information or assistance. David Hidalgo MD This note was partially generated using Normal voice recognition system, and there may be some incorrect words, spellings, and punctuation that were not noted in checking the note before saving. OUMOU Observed: 11/12/2017 Status: COMPLETED Source: [place] 10:00 AM [facility] REPOSITORY Office Visit (AGINTMLW) SHERITA JURADO ([id number]) 1945 M Date Time Provider Department 11/12/17 [...] Neva( caregiver) Patient was hospitalized 09/03-09/07/17 at [facility] then transferred to [facility] and was discharged back to assisted on 09/12/17. He was hospitalized for worsening tremors, difficulty performing ADLs and frequent falls, he was evaluated by neurology and was recommended to be transferred to [facility] for neurology and psychiatry collaboration. It was [...] cancer- referral made - Obesity - On fci drug therapy - Palpitations - Parkinson disease [...] H53.8 Unclear timeline, but will call pt's non destructive testing engineer to get seen urgently. 5. BP lower [...] may be able to return to the assisted. But as stated above assisted is not able to provide all the care and it will be best for the pt to be at a SNF. Discussed above plan with patient and caregiver - Neva. They are agreeable with above plan. Addendum - spoke with [facility] - appt arranged for 11/15/17 at 10 AM at [place] - information communicated to Neva and PHUONG. Spoke with Mr. Cole (POA) - conveyed above information, he is agreeable to getting pt placed at SNF. He will make arrangements and contact my office for any further information or assistance. David Hidalgo MD This note was partially generated using Normal voice recognition system, and there may be some incorrect words, spellings, and punctuation that were not noted in checking the note before saving. Brigid Villaseñor LPN 11/12/2017 10:11 AM Signed Pt and home care benefits representative are here to discuss moving the pt into a group home. Pt seems to comprehend the subject, states he is unable to take care of himself anymore. JESUS Mosqueda MD 11/12/2017 11:06 AM Signed Monitor BP daily at the assisted, keep a log and bring the readings [...] [H53.8] Order(s):VITAMIN B12 BLOOD [SQB12] Order #: [id number] FUTURE BASIC METABOLIC PNL [SQBMP] Order #: [id number] FUTURE Prescriptions as of 11/12/2017 Sig: CARBIDOPA [...] your clinician: Monitor BP daily at the assisted, keep a log and bring the readings in for the next visit. Please touch base with Dr. Holder, Dr. Reyes. Needs urgent appt with Dr. Castillo ( eye doctor) for blurry vision. Visit Notes: >> Brigid Villaseñor FriNov 12, 2017 10:10 AM Status: Signed Pt and home care benefits representative are here to discuss moving the [...] 11/13/17 PROGRESS Observed: 10/16/2017 Status: COMPLETED Source: [place] 9:26 AM [facility] REPOSITORY HNO ID: [id number] Author: Deirdre Reyes Service: (none) Author Type: [...] patient. REFERRING PHYSICIAN: David Hidalgo MD [address] [facility] [address] PCP: [address] [place] [address] / [facility] [address] Accompanied by: Caregiver from assisted, has known him 10 years CC: tremor HxCC: 72 year old male with history significant for schizophrenia, who presents for evaluation of tremor/parkinsonism. Initial symptoms and onset: assisted resident. Has had tremors for 10 years or more. In May started decompensating. Was falling. Tremors became much worse. Was on Haldol at the time. Hospitalized in August. Medications adjusted and he is better. Current status: tremors better but not back to prior baseline. At rest, with action. Has weighted spoon. retirement not licensed to feed him. Lost weight since February when he was 209 lbs. Hard to get food in his mouth. Balance is off when lightheaded. Has not fallen since home from hospital. retirement has limited capabilities. Should he fall more he cannot stay there. Non motor parkinsonism symptoms Loss of sense of smell: yes? Hypomimia: little Hypophonia: no Neuropsychiatric symptoms; Depress mood/anxiety: stable. Poor insight. Very adventism and found in driveway praying at times. [...] cancer- referral made - Obesity - On intermediate manager drug therapy - Palpitations - Parkinson disease [...] FINGER TAPS - LT ON 0 HAND ENGINEERING OPERATIONS LEADER - RT ON 0 HAND ENGINEERING OPERATIONS LEADER - LT ON 0 PRONATE/SUPINATE - RT [...] Sinemet, likely has not. Recommend tapering off. retirement caregiver hesitant to make any changes too quickly since if he were to need more assistance he would not be able to stay there based on the level of care they are licensed to provide. Will reduce to Sinemet 25/100 1.5 tabs TID for now. ---> Follow-up: 3 months Deirdre Reyes M.D. [facility] [place] [facility] cc: David Hidalgo MD [address] [facility] [address] [address] / [facility] [address] CNOV Observed: 10/16/2017 Status: COMPLETED Source: [place] 8:40 AM [facility] REPOSITORY Office Visit (NEURMM) ADRIENSHERITA ([id number]) 1945 M Date Time Provider Department 10/16/17 [...] patient. REFERRING PHYSICIAN: David Hidalgo MD [address] [place] [facility] [address] PCP: [address] [place] [address] / [facility] [address] Accompanied by: Caregiver from assisted, has known him 10 years CC: tremor HxCC: 72 year old male with history significant for schizophrenia, who presents for evaluation of tremor/parkinsonism. Initial symptoms and onset: assisted resident. Has had tremors for 10 years or more. In May started decompensating. Was falling. Tremors became much worse. Was on Haldol at the time. Hospitalized in August. Medications adjusted and he is better. Current status: tremors better but not back to prior baseline. At rest, with action. Has weighted spoon. retirement not licensed to feed him. Lost weight since February when he was 209 lbs. Hard to get food in his mouth. Balance is off when lightheaded. Has not fallen since home from hospital. retirement has limited capabilities. Should he fall more he cannot stay there. Non motor parkinsonism symptoms Loss of sense of smell: yes? Hypomimia: little Hypophonia: no Neuropsychiatric symptoms; Depress mood/anxiety: stable. Poor insight. Very adventism and found in driveway praying at times. [...] cancer- referral made - Obesity - On fci drug therapy - Palpitations - Parkinson disease [...] FINGER TAPS - LT ON 0 HAND ENGINEERING OPERATIONS LEADER - RT ON 0 HAND ENGINEERING OPERATIONS LEADER - LT ON 0 PRONATE/SUPINATE - RT [...] Sinemet, likely has not. Recommend tapering off. retirement caregiver hesitant to make any changes too quickly since if he were to need more assistance he would not be able to stay there based on the level of care they are licensed to provide. Will reduce to Sinemet 25/100 1.5 tabs TID for now. ---> Follow-up: 3 months Deirdre Reyes M.D. [facility] [place] Department [facility] Neu[facility] cc: David Hidalgo MD [address] [facility] [address] [address] [facility] / [facility] [address] Deirdre Reyes MD 10/16/2017 10:04 AM Signed Please reduce Sinemet (carbidopa/levodopa) to 1.5 tabs 3 times daily. Referring Provider: DAVID HIDALGO [[id number]] Allergies As of Date: 10/16/2017 Noted Allergy [...] TAPS - LT ON -> 0 HAND ENGINEERING OPERATIONS LEADER - RT ON -> 0 HAND ENGINEERING OPERATIONS LEADER - LT ON -> 0 PRONATE/SUPINATE - [...] THERAPY NT Observed: 09/12/2017 Status: COMPLETED Source: [place] 1:30 PM [facility] REPOSITORY HNO ID: [id number] Author: Bronwyn (Pt) Mauricio España Service: Physical Therapy Author Type: Physical Therapist Type: Therapy (PT/OT/Speech/Resp) Filed: 09/12/2017 3:28 PM Note Text: PHYSICAL THERAPY MISSED VISIT SERVICE DATE: 09/12/2017 SERVICE TIME: 1445 to 1446 ROOM: [place] [address] Attempted Treatment. Patient not seen due to Other: See Comment (discharged to assisted). SIGNATURE: Bronwyn España, PT PATIENT NAME: Sherita Jurado DATE: September 12, 2017 TIME: 3:28 PM PAGER/CONTACT #: [phone] ] NURSING PROG Observed: 09/12/2017 Status: COMPLETED Source: [place] 1:18 PM [facility] REPOSITORY HNO ID: [id number] Author: Fara SpencerRn) JOSE Rogers Service: (none) Author Type: Registered Nurse Type: Nursing Progress Note Filed: 09/12/2017 1:22 PM Note Text: Nursing Progress Note Patient Name: Sherita Jurado Patient Location: [place] [address] [address]* Daily Note: Patient has been visible in [...] RN NUTRITION Observed: 09/12/2017 Status: COMPLETED Source: [place] 12:04 PM [facility] OTHER [facility]AMPUS REPOSITORY HNO ID: [id number] Author: Lorna Chun Service: Nutrition Therapy Author [...] (Active) Stage Injury 2 09/10/2017 7:00 PM Clin Application Specialist Related Pressure Injury No 09/10/2017 7:00 PM Dressing Status Clean, Dry AND Intact 09/10/2017 7:00 PM Frequency of Dressing Change Every 3 Days 09/10/2017 7:00 PM Dressing Change Due 09/13/17 09/10/2017 7:00 PM Dressing/Treatment Type Foam- Non Adhesive 09/10/2017 7:00 PM Drainage Description None 09/10/2017 9:00 AM Drainage Amount None 09/10/2017 9:00 AM Odor No 09/10/2017 9:00 AM Wound Surface Color [place] 09/10/2017 9:00 AM Surrounding Skin Intact 09/10/2017 9:00 AM Number of days: 4 MNT Billing Type: Re-assess/15 min 2 units SIGNATURE: Lorna Chun RD PATIENT NAME: Sherita Jurado DATE: September 12, 2017 TIME: 12:04 PM PAGER: [phone] CASE MANAGEM Observed: 09/12/2017 Status: COMPLETED Source: [place] 12:00 PM [facility] OTHER [facility]AMP[facility] REPOSITORY HNO ID: [id number] Author: PEDRO Diggs (Sw) Service: Care Management Author Type: Wall Man Type: Care Mgt Progress Note Filed: 09/12/2017 12:10 PM Note Text: BEHAVIORAL HEALTH SOCIAL WORK DISCHARGE NOTE SERVICE DATE: 09/12/2017 SERVICE TIME: 12:01 PM PATIENT'S DISCHARGE PLAN: Discharge Disposition Discharge Disposition: Intermediate Intermediate Name: [facility] Address: [address] [place] [address] Guardian Name: Martha Govea (Bill)/guardian Psychiatry Follow-Up Appointment Psychiatrist Name: Dr. Holder Agency: A[facility]D Provider: [facility] Address and Phone#: [address] [place] [address] / / Apppointment Date: 10/10/17 Appointment Time: 2:20PM 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 Pt is returning to previous assisted. Had discussion the guardian Conrad Govea 09/11/2017 @ 1:00pm Patient/Cadmium Burner Given/Explained Medicare Discharge Notice (IM letter): Not Applicable TRANSPORTATION ARRANGEMENTS: Ambulance: Transport Agency and Phone: [facility] ( [facility] ) [phone] / [phone]. Discussion of financial coverage occurred with Guardian. PRESCRIPTIONS FILLED PRIOR TO DISCHARGE: Yes, [facility] in [place]. ADDITIONAL NOTES: Per attending psychiatrist, pt is cleared for d/c today. JOAO spoke to [place]/ manager packaging. Informed her of the next day delivery of meds with [facility] and the one day supply being sent to [facility]. Unit pharmacist spoke to [facility] regarding change in scripts and was provided description of medications that were discontinued. Document was written for to follow regarding continued/discontinued and new medications (JOAO made manager packaging aware of this). SIGNATURE: BRIELLE Diggs PATIENT NAME: Sherita Jurado DATE: September 12, 2017 TIME: 12:10 PM THERAPY NT Observed: 09/12/2017 Status: COMPLETED Source: [place] 11:07 AM [facility] OTHER [facility] REPOSITORY HNO ID: [id number] Author: Bronwyn (Pt) Mauricio España Service: Physical Therapy Author Type: Physical Therapist Type: Therapy (PT/OT/Speech/Resp) Filed: 09/12/2017 11:07 AM Note Text: PHYSICAL THERAPY MISSED VISIT SERVICE DATE: 09/12/2017 SERVICE TIME: 1106 to 1106 ROOM: [place] [address] Attempted Treatment. Patient not seen due to Other: See Comment (discharge this date). SIGNATURE: Bronwyn España PT PATIENT NAME: Sherita Jurado DATE: September 12, 2017 TIME: 11:07 AM PAGER/CONTACT #: [phone] CNDS Observed: 09/12/2017 Status: COMPLETED Source: [place] 10:43 AM [facility] OTHER [facility] REPOSITORY HNO ID: [id number] Author: Sophia Fontenot Service: Behavioral Health Author Type: Physician Type: Discharge Summaries Filed: 09/12/2017 11:47 AM Note Text: DISCHARGE SUMMARY BEHAVIORAL HEALTH PATIENT NAME: Sherita Jurdao ADMISSION DATE: 09/07/2017 DISCHARGE DATE: 09/12/2017 ATTENDING [...] providers. Discussed his case with his group exercise instructor Diana and also his guardian. Pt is an appropriate candidate for group home placement . Guardian was made aware of the recommendation. LABS AND PROCEDURES PENDING AT DISCHARGE: No pending results. CONSULTING TEAMS DURING HOSPITALIZATION: Internal Medicine: routine follow up Neurology: for Parkinson's disease. PATIENT CONDITION AT DISCHARGE: Stable DISCHARGE DISPOSITION: assisted with care. COMPLICATIONS: None At this time [...] Row Name Admission (Current) from 09/07/2017 in [facility] Psychiatry Follow-Up Appointment Psychiatrist Name Dr. Glory Mckinnon-Abelino Provider [facility] Address and Phone# [address] [place] [address] / / Apppointment Date 10/10/17 Appointment Time 2:20PM Discharge Disposition Discharge Disposition Intermediate Intermediate Name [facility] Address [address] [place] [address] Guardian/Surrogate Decision Maker Name Martha Govea (Bill)/guardian TIME OF CARE: Discharge Management: I personally spent greater than 30 minutes involved in the discharge management of this patient. SIGNATURE: Sophia Fontenot MD PATIENT NAME: Sherita Jurado DATE: September 12, 2017 TIME: 10:44 AM PAGER/CONTACT #: [phone] NURSING PROG Observed: 09/12/2017 Status: COMPLETED Source: [place] 2:12 AM CLINIC OTHER CAMPUS REPOSITORY O ID: [id number] Author: Nader SpencerRn) JOSE Patel Service: (none) Author Type: Registered Nurse Type: Nursing Progress Note Filed: 09/12/2017 6:46 AM Note Text: Nursing Progress Note Patient Name: Sherita Jurado Patient Location: [id number]* Daily Note: Pt observed to be sleeping in bed, no signs of distress noted. No tremors noted as well. Turns and repositions in bed independently. Ambulates to the bathroom at times on his own. Routine rounding maintained. 0600 Slept for 8 hrs throughout the night. No issues presented. This note was completed by: Nader Patel RN NURSING PROG Observed: 09/11/2017 Status: COMPLETED Source: [place] 10:21 PM [facility] REPOSITORY HNO ID: [id number] Author: Geraldine Watts) JOSE Worley Service: (none) Author Type: Registered Nurse Type: Nursing Progress Note Filed: 09/11/2017 10:25 PM Note Text: Nursing Progress Note Patient Name: Sherita Jurado Patient Location: [place] [address] [address]* Daily Note: Pt has been up and [...] alert and oriented x 3. Watching the f4samurai game. Was compliant with all his medications whole. This note was completed by: Geraldine Worley RN CASE MANAGEM Observed: 09/11/2017 Status: COMPLETED Source: [place] 5:06 PM [facility] REPOSITORY HNO ID: [id number] Author: PEDRO Diggs (Sw) Service: Care Management Author Type: Wall Man Type: Care Mgt Progress Note Filed: 09/11/2017 5:17 PM Note Text: BEHAVIORAL HEALTH SOCIAL WORK PROGRESS NOTE SERVICE DATE: 09/11/2017 SERVICE TIME: 5:06 PM Pt was skilled for SNF by PT on 09/09/2017 and covering attempted to call guardian and spoke to [facility] manager packaging Diana yesterday. They would have liked to place him directly into SNF. SW spoke to mell/Conrad Govea at [phone] regarding d/c planning and voluntary admission. Made [...] the potential cost of ambulance if the manager packaging can not arrang etransport. He verbalized understanding. SW spoke to Diana/ manger [phone]. She informed SW that the CM at [...] NURSING PROG Observed: 09/11/2017 Status: COMPLETED Source: [place] 4:39 PM CLINIC OTHER CAMPUS REPOSITORY O ID: [id number] Author: Char Saleem (Rn) JOSE Zhang Service: (none) Author Type: Registered Nurse Type: Nursing Progress Note Filed: 09/11/2017 4:43 PM Note Text: Nursing Progress Note Patient Name: Sherita Jurado Patient Location: [place] [address] [address]* Daily Note: Patient this am was up [...] RN PROGRESS Observed: 09/11/2017 Status: COMPLETED Source: [facility] 10:19 AM CLINIC OTHER CAMPUS REPOSITORY O ID: [id number] Author: Sophia Fontenot Service: Behavioral Health Author [...] impairment. Discussed the case with his group exercise instructor Diana at [phone] She is concerned that his overall functioning [...] history of Parkinson's Disease and Schizophrenia?referred by [place]?medical unit?for transfer to an inpatient psychiatric unit. Patient was brought in via ambulance to [place] ED on 09/03/2017 from his assisted [facility] where he has lived for over [...] decompensated well below baseline according to the assisted and patient's legal guardian Conrad Govea whom [...] HAS LENGTHENED Confirmed by MD Drew, Qarab ([id number]) on 09/04/2017 5:19:55 PM ? INTERVENTION: Biological: increase Seroquel 50 mg po bid. Psychological: support and encouragement. Social: encourage to participate in the milieu DISCHARGE PLANNING: Discharge by the end of the week. SIGNATURE: Sophia Fontenot MD PATIENT NAME: Sherita Jurado DATE: September 11, 2017 10:38 AM PAGER/CONTACT#: [phone] NURSING PROG Observed: 09/10/2017 Status: COMPLETED Source: [facility] 7:38 PM CLINIC OTHER CAMPUS REPOSITORY O ID: [id number] Author: Faby SpencerRn) JOSE Mays Service: Nursing Author Type: Registered Nurse Type: Nursing Progress Note Filed: 09/11/2017 6:13 AM Note Text: Nursing Progress Note Patient Name: Sherita Jurado Patient Location: [place] [address]* Daily Note: 1930 assumed care of this [...] CASE MANAGEM Observed: 09/10/2017 Status: COMPLETED Source: [facility] 3:47 PM CLINIC OTHER CAMPUS REPOSITORY HNO ID: [id number] Author: Mackenzie Ramirez (Lisw) Service: Social Work Author Type: Wall Man Type: Care Mgt Progress Note Filed: 09/10/2017 3:54 PM Note Text: BEHAVIORAL HEALTH SOCIAL WORK PROGRESS NOTE SERVICE DATE: 09/10/2017 SERVICE TIME: 3:47 PM Left several messages for pt's guardian Conrad Govea at [phone] to discuss current situation and plans. Also spoke with his assisted sales merchandiser Diana Pugh at [phone] who inquired about his status and would like a call from the Dr. Discussed probable discharge to a group home and sheis hoping that he can go to [facility] which is near the assisted so they will be able to make frequent visits there. Called the facility at [phone] but nobody was available to talk to today. Social work to continueto follow and coordinate appropriate plans. SIGNATURE: BRIELLE Barriga PATIENT NAME: Sherita Jurado DATE: September 10, 2017 TIME: 3:47 PM ALLIED HEALTH Observed: 09/10/2017 Status: COMPLETED Source: [facility] 11:12 AM CLINIC OTHER [place] REPOSITORY HNO ID: [id number] Author: Luz BowerssMAINOR Plasencia Service: Recreational Therapy [...] #: PROGRESS Observed: 09/10/2017 Status: COMPLETED Source: [place] 11:07 AM CLINIC OTHER CAMPUS REPOSITORY O ID: [id number] Author: Sophia Fontenot Service: Behavioral Health Author [...] history of Parkinson's Disease and Schizophrenia?referred by [place]?medical unit?for transfer to an inpatient psychiatric unit. Patient was brought in via ambulance to [place] ED on 09/03/2017 from his assisted [facility] where he has lived for over [...] decompensated well below baseline according to the assisted and patient's legal guardian Conrad Govea whom [...] HAS LENGTHENED Confirmed by MD Drew, Qarab ([id number]) on 09/04/2017 5:19:55 PM ? INTERVENTION: Biological: increase Seroquel 50 mg po bid. Psychological: support and encouragement. Social: encourage to participate in the milieu DISCHARGE PLANNING: Discharge by the end of the week. SIGNATURE: Sophia Fontenot MD PATIENT NAME: Sherita Jurado DATE: September 10, 2017 TIME:11:12 AM PAGER/CONTACT#: [phone] NURSING PROG Observed: 09/10/2017 Status: COMPLETED Source: [facility] 9:08 AM CLINIC OTHER CAMPUS REPOSITORY HNO ID: [id number] Author: Celeste Hook (Rn) JOSE Lisa Service: Nursing Author Type: Registered Nurse Type: Nursing Progress Note Filed: 09/10/2017 9:13 AM Note Text: Nursing Progress Note Patient Name: Sherita Jurado Patient Location: [place] [address] [address]* Daily Note:assumed care of the pt at [...] NURSING PROG Observed: 09/10/2017 Status: COMPLETED Source: [place] 1:29 AM [facility] REPOSITORY HNO ID: [id number] Author: Igor Majano LPN Service: (none) Author Type: LICENSED NURSE Type: Nursing Progress Note Filed: 09/10/2017 6:46 AM Note Text: Nursing Progress Note Patient Name: Sherita Jurado Patient Location: [place] [address] [address]* Daily Note:0005-assumed care of patient at this time. He is observed in his room asleep without signs of distress. Respirations are easy and symmetrical. Bed is locked and in a lower position. 0700-Patient slept 7 hours. Behavior in good control. Ambulates with mostly steady gait. He is cooperative. This note was completed by: Igor Majano LPN NURSING PROG Observed: 09/09/2017 Status: COMPLETED Source: [facility] 10:36 PM [facility] REPOSITORY HNO ID: [id number] Author: Avi SpencerRnJulio César Keene RN Service: (none) Author Type: Registered Nurse Type: Nursing Progress Note Filed: 09/09/2017 10:39 PM Note Text: Nursing Progress Note Patient Name: Sherita Jurado Patient Location: [place] [address] [address]* Daily Note: Patient Name: Sherita Jurado SERVICE [...] THERAPY NT Observed: 09/09/2017 Status: COMPLETED Source: [place] 4:50 PM CLINIC OTHER CAMPUS REPOSITORY O ID: [id number] Author: Chelly Garcia (Pt) Stella Service: Physical Therapy Author Type: Physical Therapist Type: Therapy (PT/OT/Speech/Resp) Filed: 09/09/2017 4:57 PM Note Text: Physical Therapy Evaluation SERVICE DATE: 09/09/2017 SERVICE TIME: 1516 to 1554 ROOM: [place] [address] Recommended Discharge Disposition: Subacute/SNF Justification For Post [...] gait and mobility-other Interventions Provided: Evaluation;Therapeutic Activity (96149);Gait Training (21153) $ Evaluation-Low (44549) Billed Units: 1 unit Therapeutic Activity (23470) Treatment Minutes: 15 1 unit Skilled Intervention(s): [...] supervision. Tolerated the exercises well. Gait Training (11151) Treatment Minutes: 10 1 unit Skilled Intervention(s): [...] CODE: PT 6 Clicks Score: 18 (09/09/17 068) Mobility: Walking and Moving Around Current Status [...] Home Environment Patient Lives With: Facility Care (assisted) Assistance Available: 24 Hour Entry To Home: [...] 09, 2017 TIME: 4:50 PM PAGER/CONTACT #: [phone] PROGRESS Observed: 09/09/2017 Status: COMPLETED Source: [place] 3:06 PM CLINIC OTHER CAMPUS REPOSITORY HNO ID: [id number] Author: Rossana King Service: Wound/Ostomy Author Type: [...] cancer- referral made - Obesity - On intermediate manager drug therapy - Palpitations - Parkinson disease [...] Wound Care Order:Coccyx Cover with Allevyn foam (#[id number]). Change dressing every 3 days and PRN [...] OF CARE Observed: 09/09/2017 Status: COMPLETED Source: [place] 1:20 PM CLINIC OTHER CAMPUS REPOSITORY O ID: [id number] Author: Sera Adam (Embossing Press Operator Molded Goods) Service: Pharmacy Author Type: Pharmacist Type: Plan of Care Filed: 09/09/2017 1:25 PM Note Text: MEDICATION HISTORY AND MEDICATION RECONCILIATION Patient Name:Donato Jurado : 1945 Source of history:custodial/Other [facility] ([phone]) and Pharmacy records: [facility] EMR report Medication Nonadherence Identified: No barriers noted The above information represents the best possible medication history: Yes Reconciliation completed? Yes All INVENTORY ANALYST medications addressed by LIP Additional comments: Spoke with [facility] about the patient's medications, it [...] Unknown - Zyprexa [Olanzapine] Unknown Preferred Pharmacy: [facility] Current INVENTORY ANALYST Medications: Prior to Admission medications as of [...] at bedtime. 09/06/2017 at 2100 Yes Sera Adam,Embossing Press Operator Molded Goods September 09, 2017 1:20 PM NUTRITION Observed: 09/09/2017 Status: COMPLETED Source: [place] 11:06 AM [facility] OTHER CAMPUS REPOSITORY O ID: [id number] Author: Raffi Schumacher Service: Nutrition Therapy Author [...] history of Parkinson's Disease and Schizophrenia?referred by [place]?medical unit?for transfer to an inpatient psychiatric unit. Patient was brought in via ambulance to [place] ED on 09/03/2017 from his assisted [facility] where he has lived for over [...] cancer- referral made - Obesity - On fci drug therapy - Palpitations - Parkinson disease [...] Resting Metabolic Rate: 1603 Estimated kilocalorie needs: 1523-3732 kilocalories determined by 22-25 kcal/kg Estimated protein needs: 84-100 grams determined by 1.0-1.2 g/kg Dosing weight Estimated fluid needs: 8465-7850 milliliters based on 1 mL per kcal [...] progress note obtained and documented by the internal grinder set up operator. I have discussed the case and management of the patient?s nutrition therapy with the internal grinder set up operator. The following comments revise or confirm relevant vernon components of the internal grinder set up operator?s note. Raffi Schumacher RD, [place], [facility] Pager: [phone] PROGRESS Observed: 09/09/2017 Status: COMPLETED Source: [place] 10:59 AM [facility] OTHER CAMPUS REPOSITORY O ID: [id number] Author: Sophia Fontenot Service: Behavioral Health Author Type: Physician Type: Progress Notes Filed: 09/09/2017 11:20 AM Note Text: PROGRESS NOTE BEHAVIORAL HEALTH SERVICE DATE: 09/09/2017 SERVICE TIME: 11:05 AM The Interdisciplinary team met and reviewed treatment goals and discharge planning. Subjective Pt was seen with the residential mortgage manager. Pt was observed to have involuntary movements [...] history of Parkinson's Disease and Schizophrenia?referred by [place]?medical unit?for transfer to an inpatient psychiatric unit. Patient was brought in via ambulance to [place] ED on 09/03/2017 from his assisted [facility] where he has lived for over [...] decompensated well below baseline according to the assisted and patient's legal guardian Conrad Govea whom [...] HAS LENGTHENED Confirmed by MD Drew, Qarab ([id number]) on 09/04/2017 5:19:55 PM ? INTERVENTION: Biological: stop Haloperidol. Increase the Seroquel 25 mg po bid. Psychological: support and encouragement. Social: encourage to participate in the milieu DISCHARGE PLANNING: Discharge by the end of the week. SIGNATURE: Sophia Fontenot MD PATIENT NAME: Sherita Jurado DATE: September 09, 2017 TIME: 11:00 AM PAGER/CONTACT#: [phone] NURSING PROG Observed: 09/09/2017 Status: COMPLETED Source: [place] 9:37 AM [facility] REPOSITORY HNO ID: [id number] Author: Neva Doe RN Service: Nursing Author Type: Registered Nurse Type: Nursing Progress Note Filed: 09/09/2017 9:48 AM Note Text: Nursing Progress Note Patient Name: Sherita Jurado Patient Location: [place] [address]* Daily Note: Assumed care at 0700. Patient has visible tremors but he is medication compliant. Needs help with eating and taking medication. Patient is cooperative with care. Attended group. Will continue to monitor. This note was completed by: Neva Doe RN THERAPY NT Observed: 09/09/2017 Status: COMPLETED Source: [place] 7:35 AM [facility] OTHER [place] REPOSITORY HNO ID: [id number] Author: MAGALY Ochoa Ot/Praneeth Service: Occupational Therapy Author Type: Occupational Therapist Type: Therapy (PT/OT/Speech/Resp) Filed: 09/09/2017 9:54 AM Note Text: Occupational Therapy Evaluation SERVICE DATE: 09/09/2017 SERVICE TIME: 0735 to ROOM: [place] [address] Recommended Discharge Disposition: Subacute/SNF Justification For Post [...] mod intention tremors) Interventions Provided: Evaluation;Therapeutic Activity (51521) $ Evaluation-Moderate (43545) Billed Units: 1 unit Therapeutic Activity (24937) Treatment Minutes: 17 2 units Skilled Intervention(s): Instruction in sit to and from stand technique with proper hand placement and body positioning at edge of bed/chair Skilled instruction for safe functional ADLs and mobility in room. OT POC discussed with patient Total Timed Code Treatment Minutes: 17 Total Treatment Time (minutes): 25 FUNCTIONAL G CODE: OT 6 Clicks Score: 14 (09/09/17 6189) Based on clinical assessment and the score [...] history of Parkinson's Disease and Schizophrenia?referred by [place]?medical unit?for transfer to an inpatient psychiatric unit. Patient was [facility] [...] decompensated well below baseline according to the assisted and patient's legal guardian Conrad Govea whom [...] Home Environment Patient Lives With: Facility Care (assisted) Assistance Available: 24 Hour Entry To Home: [...] cancer- referral made - Obesity - On fci drug therapy - Palpitations - Parkinson disease [...] NURSING PROG Observed: 09/08/2017 Status: COMPLETED Source: [place] 10:38 PM [facility] REPOSITORY HNO ID: [id number] Author: Sabrina SpencerRnJulio César Sanabria RN Service: (none) Author Type: Registered Nurse Type: Nursing Progress Note Filed: 09/09/2017 6:09 AM Note Text: Nursing Progress Note Patient Name: Sherita Jurado Patient Location: [place] [address] [address]* Daily Note:Assumed care of patient at 1900. He is visible in day area at the start of shift. He is pleasant and in control, [id number]. He has profound tremors of bilateral arms [...] NURSING PROG Observed: 09/08/2017 Status: COMPLETED Source: [place] 5:31 PM [facility] REPOSITORY HNO ID: [id number] Author: Michael SpencerRn) JOSE Jarquin Service: ASSESSMENT Author Type: Registered Nurse Type: Nursing Progress Note Filed: 09/08/2017 5:31 PM Note Text: Nursing Progress Note Patient Name: Sherita Jurado Patient Location: [place] [address] [address]* Daily Note: Patient up and visible on [...] MGT INIT Observed: 09/08/2017 Status: COMPLETED [facility] AM CLINIC OTHER CAMPUS REPOSITORY HNO ID: [id number] Author: PEDRO Diggs (Sw) Service: Social Work Author Type: Wall Man Type: Care Mgt Initial Assessment Filed: 09/12/2017 9:25 AM Note Text: BEHAVIORAL HEALTH SOCIAL WORK/CARE MANAGEMENT ASSESSMENT AND DISCHARGE PLAN SERVICE DATE: 09/08/2017 SERVICE TIME: 11:36 AM Reason for Admission: Per Intake: Sherita Jurado is a 71 year old single male with a history of Parkinson's Disease and Schizophrenia?referred by [place]?medical unit?for transfer to an inpatient psychiatric unit. Patient was brought in via ambulance to [facility] on 09/03/2017 from his assisted [facility] where he has lived for over [...] decompensated well below baseline according to the assisted and patient's legal guardian Conrad Govea whom [...] / Relationship: Guardian / / Roberto SpencerDiana)- First Breaker Feeder ([phone] or cell [phone]) Does the patient/benefits representative consent to contact with the above at this time? Not Applicable Information obtained from: Chart Patient Referred by: Medical Team Living Arrangements Prior to Admission: Intermediate: [facility] Prior to Admission, Patient was Living with: N/A - Patient From Facility Marital Status: Single Unknown if ever Children (including quality of relationship): Patient does not have any children Sexual Orientation: Heterosexual SOCIAL HISTORY Sherita Jurado was born and raised in [place], [place] by his mother. His childhood is described as unknown. He has 2 siblings. He has estranged relationship with family members. 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 No, Patient/Cadmium Burner denies Substance Use and Treatment History: Lab Results Negative for Tested Substances Unknown Do special considerations/accommodations need to be made (i.e. preferred language, literacy, gender identity, physical disability such as deaf or blind, etc)? No, Patient/Cadmium Burner Denies Are there practices or beliefs that may affect or influence treatment? No, Patient/Cadmium Burner Denies Patient Strengths/Protective Factors (Minimum of Two): Connected with Outpatient Providers Legal Guardian Stable Housing Stable Income FAMILY PSYCHIATRIC HISTORY Patient/Cadmium Burner Denies DISCHARGE RECOMMENDATIONS: Relinkage With Previous Providers Extended Care Nursing Facility Patient/Cadmium Burner Agreeable With Discharge Recommendations At This Time? [...] Patient is currently involuntary. Per chart review, sales merchandiser began to notice a change in behaviors 3 months ago. Per notes guardian would like for patient to reside in a nursing facility for stabilization. Unit SW to discuss referral with guardian. SIGNATURE: PEDRO Stout PATIENT NAME: Sherita Jurado DATE: September 08, 2017 TIME: 11:03 AM HISTORY PHYSICAL Observed: 09/08/2017 Status: COMPLETED Source: [place] 8:33 AM CLINIC OTHER CAMPUS REPOSITORY O ID: [id number] Author: Romie Lopez MD Service: Psychiatry Author [...] history of Parkinson's Disease and Schizophrenia?referred by [place]?medical unit?for transfer to an inpatient psychiatric unit. Patient was brought in via ambulance to [place] [facility] [...] decompensated well below baseline according to the assisted and patient's legal guardian Conrad Govea whom [...] cancer- referral made - Obesity - On intermediate manager drug therapy - Palpitations - Parkinson disease [...] Unknown SOCIAL HISTORY: Born AND Raised in [place] Education: High school Employment: Unemployed, not seeking [...] PANEL, BASIC Collected: 09/08/2017 Status: F Source: [facility] 7:14 AM CLINIC OTHER CAMPUS REPOSITORY TYPE [...] Desk Reference: National Heart, Lung, and Blood [place]. National Institutes of Health. 2001: NIH Publication No. 01-3305. 2. An International Atherosclerosis Society position paper: global recommendations for the management of dyslipidemia: executive summary, Atherosclerosis. 2014: 232(2):410-413. Performed By: #### LIPB, HBA1C #### [facility] [address] [place], [place] [address] HEMOGLOBIN A1C Collected: 09/08/2017 Status: F Source: [facility] 7:14 AM CLINIC OTHER CAMPUS REPOSITORY TYPE CODE TESTS RESULT OUT OF REFERENCE UNITS RANGE LAB HGBA1C 4.3-5.6 % Hemoglobin A1c 4.8 LAB HBA0 mg/dL Est. Average Glucose 91 Result Comment: eAG: (Estimated average glucose) is a calculated value from HgbA1c and is benefits representative of the average blood glucose level in the last 2-3 month period. Performed By: #### LIPB, HBA1C #### [facility] [address] [place], [place] [address] PROGRESS Observed: 09/08/2017 Status: COMPLETED Source: [place] 5:03 AM [facility] OTHER CAMPUS REPOSITORY HNO ID: [id number] Author: Remberto Fernandez MD Service: Neurology Author Type: Physician Type: Progress Notes Filed: 09/09/2017 7:52 AM Note Text: PATIENT NAME: Sherita Jurado SERVICE DATE: 09/08/2017 PRIMARY SERVICE: Neurology ASSESSMENT Dictated #[id number] ==> Tremors: A complex movement disorder with [...] are safe/effective ---> Attempted to reach contact ([phone]) but was unsuccessful ---> d/w Dr Hardin We very much appreciate the consult. Catapulter -Remberto Fernandez MD -Royal Harden, [facility] Office: [phone] In the course of this person's neurologic [...] cancer- referral made - Obesity - On intermediate manager drug therapy - Palpitations - Schizophrenia (HCC) [...] NURSING PROG Observed: 09/08/2017 Status: COMPLETED Source: [place] 12:59 AM [facility] REPOSITORY HNO ID: [id number] Author: Nader (Rn) JOSE Patel Service: (none) Author Type: Registered Nurse Type: Nursing Progress Note Filed: 09/08/2017 6:45 AM Note Text: Nursing Progress Note Patient Name: Sherita Jurado Patient Location: [place] [address] [address]* Daily Note: Assumed care of pt at [...] RN CONSULT Observed: 09/08/2017 Status: COMPLETED Source: [place] 12:00 AM [facility] REPOSITORY HNO ID: [id number] Author: Morenita Waldrop Service: (none) Author Type: Physician Type: Consults Filed: 09/16/2017 9:10 PM Note Text: [facility] Consults ORIGINATOR: Morenita Waldrop MD SHERITA JURADO ACCTNUM: [id number] SERVICE: PS LOCATION: ATTENDING PHYSICIAN: Bhavik James M.D. DATE OF SERVICE: 09/08/2017 HISTORY OF PRESENT ILLNESS: The patient is a 71-year-old gentleman who initially was admitted to [place] from assisted with worsening of the tremor, frequent falls, and inability to take care of himself. He was evaluated by Neurology Service and was recommended to have further psychiatric assessment to give assess his drug-induced Parkinson disease versus true Parkinson's. So, he was transferred to [facility] for psychiatric admission and consultation [...] patient with you. Morenita Waldrop MD IC:MedQ /[id number] cc: CONSULT Observed: 09/08/2017 Status: COMPLETED Source: [place] 12:00 AM [facility] OTHER CAMPUS REPOSITORY O ID: [id number] Author: Remberto Fernandez MD Service: Neurology Author Type: Physician Type: Consults Filed: 09/22/2017 5:11 AM Note Text: [facility] Consults ORIGINATOR: Remberto Fernandez MD SHERITA JURADO ACCTNUM: [id number] SERVICE: [facility] LOCATION: ATTENDING PHYSICIAN: Bhavik James M.D. DATE [...] shrug, and symmetric hearing, but he has nkme-ry-ixwjwhdl hypophonia and hypomimia. Motor exam reveals full confrontational strength in the arms and legs proximally and distally without spasticity. I do think there is a cogwheel rigidity at his right wrist. Sensory exam is reportedly symmetric to touch in the arms and legs, and he does have a symmetric tactile threshold. Coordination is inaccurate because when performing caajzg-cu-lrcb, he has violent shaking. He also develops violent shaking when his hands are postured with hands supine. Tsxj-xs-xajy is poorly executed. Deep tendon reflexes appear symmetric in his arms, though it is hard to mold car pusher because during the exam, he shakes and [...] for neurologic consultation. Remberto Fernandez MD JL:Williams /[id number] cc: NURSING PROG Observed: 09/07/2017 Status: COMPLETED Source: [place] 9:27 PM [facility] OTHER [place] REPOSITORY HNO ID: [id number] Author: Geraldine (Rn) JOSE Worley Service: (none) Author Type: Registered Nurse Type: Nursing Progress Note Filed: 09/07/2017 9:49 PM Note Text: Nursing Progress Note Patient Name: Sherita Jurado Patient Location: [place] [address] [address]* Daily Note: Pt has been up in [...] NURSING PROG Observed: 09/07/2017 Status: COMPLETED Source: [place] 4:28 PM CLINIC OTHER CAMPUS REPOSITORY HNO ID: [id number] Author: Char Saleem (Rn) JOSE Zhang Service: (none) Author Type: Registered Nurse Type: Nursing Progress Note Filed: 09/07/2017 4:45 PM Note Text: Nursing Progress Note Patient Name: Sherita Jurado Patient Location: [place] [address] [address]* Daily Note: [address] orders [address] James. He is lowering his cogentin and haldol and starting him on Seroquel 12.5 mg BID. He ordered PRN Geodon 10mg Q 6hrs PRN for agitation. His diet was resumed as dental soft with thin liquids, patient had recent swallow eval while at [facility]. Nutrition consult was ordered along [...] ALLIED HEALTH Observed: 09/07/2017 Status: COMPLETED Source: [place] 3:05 PM [facility] REPOSITORY HNO ID: [id number] Author: Shadia SpencerClinical Material Handler) Raymon Service: Recreational Therapy Author Type: Therapist [...] ALLIED HEALTH Observed: 09/07/2017 Status: COMPLETED Source: [place] 3:02 PM [facility]IN[facility] OTHER CAMPUS REPOSITORY O ID: [id number] Author: Shadia Ennis (Ctrs) Service: Recreational Therapy [...] NURSING PROG Observed: 09/07/2017 Status: COMPLETED Source: [place] 2:31 PM [facility]INIC OTHER CAMPUS REPOSITORY HNO ID: [id number] Author: Char Watts) JOSE Zhang Service: (none) Author Type: Registered Nurse Type: Nursing Progress Note Filed: 09/07/2017 2:48 PM Note Text: Nursing Progress Note Patient Name: Sherita Jurado Patient Location: [place] [address] [address]* Admit Note: Patient arrived on unit at 1311. He is oriented to person place and time. He is pleasant and in control. He had notable tremors of bilateral arms and hands. He denies SI and HI. He states he is here to see a neurologist to help him with his shakes. Patient has a legal guardian Martha Govea [phone]. [facility] [...] lump. Patient was elevated by Neurology at [facility] where it was recommended that he be sent [place] to be followed by Neurology and Psychiatrist for medication management. This note was completed by: Char Zhang RN NURSING PROG Observed: 09/07/2017 Status: COMPLETED Source: [place] 2:29 PM CLINIC OTHER CAMPUS REPOSITORY HNO ID: [id number] Author: Char Watts) JOSE Zhang Service: (none) Author Type: Registered Nurse Type: Nursing Progress Note Filed: 09/07/2017 2:31 PM Note Text: Nursing Progress Note Patient Name: Sherita Jurado Patient Location: [place] [address] [address]* Transfer Note: Patient transferred [facility] medical unit onto [facility] unit 680-2. Actions taken: Patient was assisted off gurney with 1 assist. He was oriented to unit. Will continue to monitor and check with patient. This note was completed by: Char Zhang RN CASE MANAGEM Observed: 09/07/2017 Status: COMPLETED Source: [place] 11:22 AM [facility] OTHER CAMPUS REPOSITORY [facility] ID: [id number] Author: Celeste (Rn) JOSE Guy Service: Care Management Author Type: Registered Nurse Type: Care Mgt Progress Note Filed: 09/07/2017 12:02 PM Note Text: CARE MANAGEMENT DISCHARGE NOTE SERVICE DATE: 09/07/2017 SERVICE TIME: 11:23 AM CM received call back from Richie at [facility] statin) patient has been assigned bed 680-2, 2) accepting physician is Dr. James, 3) accepting nurse is Celeste who will receive our floor nurse report at [phone], 4) admitting dx is Schizophrenia CM gave information to [facility] and floor nurse. [facility] to arrange for transport. Once pick-up time is know, guardian will be notified. Admission Date: 09/03/2017 DISCHARGE ARRANGEMENT (list agency and phone number) Transfer to [facility] at [facility] CAREGIVER ASSESSMENT: Caregiver is ready, willing [...] Fax Address Order Martha Chowdary MD? Neurology [phone] [address] Next Steps: Follow up David Hidalgo MD? PCP - General Internal Medicine [phone] [place] [address] [place] [address] Next Steps: Follow up Mackenzie Lizarraga MD? Psychiatry [phone] [place] [address] Next Steps: Follow up [facility]? [phone] [address] [facility] [address] Next Steps: Follow up Silva Bell, PHD? Psychology [phone] [address] [facility] [address] Next Steps: Follow up TRANSPORTATION ARRANGEMENTS:via Transfer line. ADDITIONAL CONTACT RESOURCES: Martha Govea ([facility]) [phone] (H) [phone] (M) Needs Prior to Discharge: Other: See Comment (must reapply for rhonda-psych transfer via Central intake) 11:59 AM Guardian notified of transfer. He wants to be kept abreast of patient's status, please. This information was called to Celeste Floor nurse at [facility]. SIGNATURE: YASSINE Ash, RN, ACM-RN PATIENT NAME: Sherita Jurado DATE: September 07, 2017 TIME: 11:23 AM PAGER/CONTACT #: [phone] CASE MANAGEM Observed: 09/07/2017 Status: COMPLETED Source: [place] 11:08 AM CLINIC OTHER CAMPUS REPOSITORY HNO ID: [id number] Author: Celeste (Rn) Malena RN Service: Care Management Author Type: Registered Nurse Type: Care Mgt Progress Note Filed: 09/07/2017 11:10 AM Note Text: CARE MANAGEMENT PROGRESS NOTE SERVICE DATE: 09/07/2017 SERVICE TIME: 11:08 AM LOS: 0 days Needs Prior to Discharge: Other: See Comment (must reapply for rhonda-psych transfer via Central intake) CM called Edward at [facility] Central Intake at [phone], option 2, to let him know Dr. Ledesma's note is in chart from today's visit. We will await approval and bed assignment so we can arrange for transfer. Case management to follow. SIGNATURE: YASSINE Ash, RN, ACM-RN PATIENT NAME: Sherita Jurado DATE: September 07, 2017 TIME: 11:08 AM PAGER/CONTACT #: [phone] NUTRITION Observed: 09/07/2017 Status: COMPLETED Source: [place] 11:01 AM [facility] REPOSITORY HNO ID: [id number] Author: Nga Eagle Service: Nutrition Therapy Author [...] PAGER: PROGRESS Observed: 09/07/2017 Status: COMPLETED Source: [place] 10:58 AM [facility] REPOSITORY HNO ID: [id number] Author: Dominic Ledesma Service: General Internal Medicine Author Type: Physician Type: Progress Notes Filed: 09/07/2017 11:04 AM Note Text: Patient seen and examined. He remains medical clear as he was yesterday and is awaiting bed availability at [facility] for inpatient psychiatry. Hematuria was likely traumatic from bobo catheter placement and it has since resolved as catheter was removed. Pt is voiding without incident. CASE MANAGEM Observed: 09/07/2017 Status: COMPLETED Source: [place] 10:46 AM [facility] REPOSITORY HNO ID: [id number] Author: Celeste SpencerRn) JOSE Guy Service: Care [...] this information. CM reviewed 09/06 note from [facility] Health Intake. The reason patient has not yet seen Psych physician here is that the scheduled 09/[address] Lizarraga was cancelled (after consultation with Rosette in behavior intake) when we were notified patient had been accepted at [facility] and had a floor assignment. Case management to follow. SIGNATURE: YASSINE Ash, RN, ACM-RN PATIENT NAME: Sherita Jurado DATE: September 07, 2017 TIME: 10:46 AM PAGER/CONTACT #: [phone] CASE MANAGEM Observed: 09/07/2017 Status: COMPLETED Source: [place] 10:02 AM [facility]AMP[facility] REPOSITORY HNO ID: [id number] Author: Celeste (Rn) JOSE Guy Service: Care [...] to discuss transfer of patient. He states [facility] staff was reviewing patient's chart and saw hematuria amoung other things, brought these to Dr. Bennett (Director of rhonda-psych floor) and the transfer was denied as patient is not medically stable. Transfer was cancelled last evening. [facility] does not have an available urologist this next week should Patient have issues, Richie reports. CM asked if we got a urologist to eval here. Denies as there were other concerns. No elaboration was given. [facility] Allison may re-apply through central behavior intake again after Friday at [facility] Psych Intake office at [phone], option 2. Reported this to Floor nurse, MENDEZ, CM paramedic supervisor, Kirby Waggoner, and Dr. Ledesma. CM called Richie at Central intake back requesting MD [id number] discussion. CN gave Baltazar Mckeon's phone number to Richie to give to Dr. Bennett to call our Attending. CM contacted Dr. Ledesma with this update. Awaiting response of [id number]. Case management to follow. SIGNATURE: YASSINE Ash, RN, ACM-RN PATIENT NAME: Sherita Jurado DATE: September 07, 2017 TIME: 10:02 AM PAGER/CONTACT #: [phone] NURSING PROG Observed: 09/07/2017 Status: COMPLETED Source: [place] 7:30 AM CLINIC OTHER CAMPUS REPOSITORY O ID: [id number] Author: Margie (Rn) JOSE Bean Service: Nursing Author Type: Registered Nurse Type: Nursing Progress Note Filed: 09/07/2017 12:18 PM Note Text: Nursing Progress Note Patient Name: Sherita Jurado [facility]20/[id number] Daily Note:0730 - received bedside report; assumed [...] safety maintained. 1130 - Report called to JOES Alonso at [facility]. 1158 - [facility] here to transport. 1210 - pt transferred in stable condition. This note was completed by: Margie Bean RN CBC Collected: 09/07/2017 Status: F Source: [place] 3:30 AM [facility] OTHER CAMPUS REPOSITORY TYPE CODE TESTS [...] Performed By: #### CBC, BMP, MG1 #### [facility] [address] [facility] [phone] BASIC METABOLIC PANL Collected: 09/07/2017 Status: F Source: [place] 3:30 AM [facility] REPOSITORY TYPE CODE TESTS RESULT OUT OF REFERENCE UNITS RANGE LAB GLU 74-99 mg/dL Glucose 99 Result Comment: The [place] Diabetes Association (ADA) provides guidance for cutoff [...] Standards of Medical Care in Diabetes 2016, [place] [employer] Association. Diabetes Care. 2016.39(Suppl 1). LAB [...] Performed By: #### CBC, BMP, MG1 #### [facility] [address] [place], [place] [phone] MAGNESIUM Collected: 09/07/2017 Status: F Source: [place] 3:30 AM [facility] REPOSITORY TYPE CODE TESTS RESULT OUT OF REFERENCE UNITS RANGE LAB MG 1.7-2.3 mg/dL Magnesium 2.0 Performed By: #### CBC, BMP, MG1 #### [facility] [address] [place], [place] [id number] NURSING PROG Observed: 09/06/2017 Status: COMPLETED Source: [place] 9:30 PM [facility] REPOSITORY HNO ID: [id number] Author: Estelita (Rn) Ciro, RN Service: (none) Author Type: Registered Nurse Type: Nursing Progress Note Filed: 09/07/2017 5:53 AM Note Text: Nursing Progress Note Patient Name: Sherita Jurado Patient [facility] [facility]/[id number] 1900- Assumed care of patient. Patient laying [...] CASE MANAGEM Observed: 09/06/2017 Status: COMPLETED Source: [place] 8:14 PM CLINIC OTHER CAMPUS REPOSITORY O ID: [id number] Author: Sakshi Smith (Sw) Service: Care Management Author Type: Wall Man Type: Care Mgt Progress Note Filed: 09/06/2017 8:22 PM Note Text: CARE MANAGEMENT PROGRESS NOTE SERVICE DATE: 09/06/2017 SERVICE TIME: 7:10 PM LOS: 0 days Needs Prior to Discharge: Other: See Comment (medical clearance) Per chart review, pt NOT accepted by inpt psych d/t blood in urine, medical unit was notified by central intake. WELDING MACHINE OPERATOR G[employer] AR[employer] spoke with bedside nurse, plan at this time for catheter to be removed, pt to re-evaluated by medical staff, and once medically cleared will be presented to central intake again. Per nurse, previously scheduled transportation was canceled. 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 Case management to remain available for d/c planning and assist as needed. SIGNATURE: BRIELLE Diaz PATIENT NAME: Sherita Jurado DATE: September 06, 2017 TIME: 8:14 PM PAGER/CONTACT #: [phone] CNDS Observed: 09/06/2017 Status: COMPLETED Source: [place] 4:06 PM CLINIC OTHER CAMPUS REPOSITORY HNO ID: [id number] Author: Dominic Ledesma Service: General Internal Medicine [...] tremor, vitamin D deficiency who lives in assisted, comes in for evaluation of worsening tremors for last 2 months, difficulty performing his ADL's and frquent falls. He was seen by neurology who recommended transfer to inpatient [facility] for neuro and psych collaboration as it is unclear if he has drug induced parkinson's vs true parkinson's. He was accepted at [facility], given a pink slip. He was medically clear at time of d/c ? LABS AND PROCEDURES PENDING AT DISCHARGE: No pending results. ? CONSULTING TEAMS DURING HOSPITALIZATION: neurology ? PATIENT CONDITION AT DISCHARGE: Stable ? DISCHARGE DISPOSITION: transfer to [facility] inpatient [facility] ? Discharge Physical Exam: VITAL SIGNS: BP [...] discharge management of this patient. ? SIGNATURE: Dominic Ledesma MD PATIENT NAME: Sherita Jurado DATE: September 07, 2017 TIME: 2:58 PM PAGER/CONTACT #: [phone] ? HISTORY PHYSICAL Observed: 09/06/2017 Status: COMPLETED Source: [place] 2:58 PM CLINIC OTHER CAMPUS REPOSITORY O ID: [id number] Author: Dominic Ledesma Service: General Internal Medicine [...] tremor, vitamin D deficiency who lives in assisted, comes in for evaluation of worsening tremors for last 2 months, difficulty performing his ADL's and frquent falls. He was seen by neurology who recommended transfer to inpatient psych for neuro and psych collaboration as it is unclear if he has drug induced parkinson's vs true parkinson's. He was accepted at [facility], given a pink slip. He was medically clear at time of d/c LABS AND PROCEDURES PENDING AT DISCHARGE: No pending results. CONSULTING TEAMS DURING HOSPITALIZATION: neurology PATIENT CONDITION AT DISCHARGE: Stable DISCHARGE DISPOSITION: transfer to [facility] inpatient psych Discharge Physical Exam: VITAL SIGNS: [...] 06, 2017 TIME: 2:58 PM PAGER/CONTACT #: [phone] PROGRESS Observed: 09/06/2017 Status: COMPLETED Source: [place] 2:15 PM [facility] OTHER [facility] REPOSITORY HNO ID: [id number] Author: Dominic Monet) Baltazar Service: General Internal Medicine Author Type: Physician Type: Progress Notes Filed: 09/06/2017 2:15 PM Note Text: Bed available at [facility]. Patient medically clear for transfer. Will place dc orders and pink slip shortly. CASE MANAGEM Observed: 09/06/2017 Status: COMPLETED Source: [place] 2:15 PM [facility] OTHER [facility] REPOSITORY HNO ID: [id number] Author: Celeste SpencerRn) JOSE Guy Service: Care Management Author Type: Registered Nurse Type: Care Mgt Progress Note Filed: 09/06/2017 4:26 PM Note Text: CARE MANAGEMENT PROGRESS NOTE SERVICE DATE: 09/06/2017 SERVICE TIME: 01:50 PM Returned call from Rosette at [facility] Psych Intake office at [phone], option 2, stating patient has been accepted to [facility] 6 - Psych floor by Dr. Bhavik James. Discussed that patient has not yet been evaluated by Dr Lizarraga, our psych MD. She states this will not hold us up as he has already been accepted. What she needs is: 1) Order from Medical MD stating patient is medically cleared for transfer to In-patient [facility]; 2) [place] as patient is deemed unable to voluntarily sign himself in CM huddles with Floor nurse, Margie, and Kylee SIMMS, as well as called Hospitalist, Dr. Ledesma. Dr Zia amador will be cancelled, transportation with be started per MENDEZ, and Dr. Ledesma will start the DC orders and [place]. LOS: 0 days Admission Date: 09/03/2017 DISCHARGE ARRANGEMENT (list agency and phone number) Inpatient psych facility at [facility] CAREGIVER ASSESSMENT: Caregiver is ready, [...] Fax Address Order Martha Chowdary MD? Neurology [phone] [address] Next Steps: Follow up David Hidalgo MD? PCP - General Internal Medicine [phone] [address] [facility] [place] [address] Next Steps: Follow up Mackenzie Lizarraga MD? Psychiatry [phone] [address] [place] [address] Next Steps: Follow up Silva Bell, PHD? Psychology [phone] [address] [facility] [address] Next Steps: Follow up TRANSPORTATION ARRANGEMENTS: via transfer line ADDITIONAL CONTACT RESOURCES: Martha Govea ([place]) [phone] (H) [phone] (M) called Mr. Govea who states he received a call about 1 hours ago about the transfer to [facility]. Also discussed a pink slip that will also be signed, and what that means. Needs Prior to Discharge: To Be Determined;Other: See Comment (transfer to Inpatient [facility]) SIGNATURE: YASSINE Ash, RN, ACM-RN PATIENT NAME: Sherita Jurado DATE: September 06, 2017 TIME: 2:15 PM PAGER/CONTACT #: [phone] NURSING PROG Observed: 09/06/2017 Status: COMPLETED Source: [place] 7:30 AM CLINIC OTHER CAMPUS REPOSITORY O ID: [id number] Author: Margie (Rn) JOSE Bean Service: Nursing Author Type: Registered Nurse Type: Nursing Progress Note Filed: 09/07/2017 8:36 AM Note Text: Nursing Progress Note Patient Name: Sherita Jurado Patient Location: [place] [address]/[id number]-[id number] Daily Note:0730 - received bedside report; assumed [...] BeanRN URINALYSIS Collected: 09/06/2017 Status: F Source: [place] 5:30 AM CLINIC OTHER CAMPUS REPOSITORY TYPE [...] Urine 15 Alert LAB USPG 1.001-1.029 Specific [place], Ur 1.020 LAB UHGB Negative Abnormal Alert Hemoglobin/Blood,U Large r LAB UPH 5.0-8.0 pH 6.5 LAB UPROT Negative mg/dL Abnormal Protein, Urine 30 Alert LAB UUROB 0.2-1.0 Urobilinogen 1.0 LAB UNITR Negative Nitrites Negative LAB ULKEST Negative Leukest Negative Performed By: #### UA, UAMIC #### [facility] [address] [facility] [phone] URINE MICROSCOPIC Collected: 09/06/2017 Status: F Source: [place] (FOR LAB USE ONLY) 5:30 AM [facility] OTHER CAMPUS REPOSITORY TYPE CODE TESTS [...] Amorphous Performed By: #### UA, UAMIC #### [facility] [address] [place] [address] Observed: 09/06/2017 Status: F Source: [place] URINE CULTURE 5:30 AM [facility] REPOSITORY Culture Result - <10,000 CFU/ml Normal urogenital na Performed By: #### URCUL #### [facility] [address] [place] [address] CBC Collected: 09/06/2017 Status: F Source: [place] 4:22 AM [facility] REPOSITORY TYPE CODE TESTS RESULT OUT OF [...] BMP, MG1 #### [facility] [address] [facility] [phone] BASIC METABOLIC PANL Collected: 09/06/2017 Status: F Source: [place] 4:22 AM CLINIC OTHER CAMPUS REPOSITORY TYPE CODE TESTS RESULT OUT OF REFERENCE UNITS RANGE LAB GLU 74-99 mg/dL Glucose 83 Result Comment: The [place] Diabetes Association (ADA) provides guidance for cutoff [...] Standards of Medical Care in Diabetes 2016, [place] [employer]. Diabetes Care. 2016.39(Suppl 1). LAB [...] Performed By: #### CBC, BMP, MG1 #### [facility] [address] [facility] [phone] MAGNESIUM Collected: 09/06/2017 Status: F Source: [place] 4:22 AM [facility] REPOSITORY TYPE CODE TESTS RESULT OUT OF REFERENCE UNITS RANGE LAB MG 1.7-2.3 mg/dL Magnesium 2.0 Performed By: #### CBC, BMP, MG1 #### [facility] [address] [facility] [phone] NURSING PROG Observed: 09/05/2017 Status: COMPLETED Source: [place] 11:47 PM [facility] REPOSITORY HNO ID: [id number] Author: Kendal (Rn) JOSE Mott Service: (none) Author Type: Registered Nurse Type: Nursing Progress Note Filed: 09/06/2017 12:44 AM Note Text: Nursing Progress Note Patient Name: Sherita Jurado Patient Location: [place] [address]/[id number] Daily Note:09/05/171924 Bedside report from RN. Tremors [...] CONSULT PROG Observed: 09/05/2017 Status: COMPLETED Source: [place] 4:35 PM [facility] REPOSITORY HNO ID: [id number] Author: Martha Chowdary Jr. Service: Neurology Author [...] September 05, 2017 TIME: 4:35 PM PAGER: [phone] US KIDNEY/BLADDER Observed: 09/05/2017 Status: F Source: [place] 10:42 AM CLINIC OTHER CAMPUS REPOSITORY * [...] 2 simple cysts in the LEFT kidney. Belt Polisher: WILLOW Transcribe Date/Time: Sep 05 2017 11:18A Dictated by : PAULO BILLS DO This examination was interpreted and the report reviewed and electronically signed by: PAULO BILLS DO on Sep 05 2017 11:19AM EST [id number] [id number] NT Observed: 09/05/2017 Status: COMPLETED Source: [place] 9:41 AM [facility]IN[facility] OTHER CAMPUS REPOSITORY HNO ID: [id number] Author: Amanda Shepherd/Hay Varner Service: Occupational Therapy Author Type: Occupational Therapist Type: Therapy (PT/OT/Speech/Resp) Filed: 09/05/2017 11:27 AM Note Text: Attestation signed by Samira Garcia at 09/15/2017 7:20 PM Samira Garcia APRN.CNP 09/15/2017 7:20 PM Occupational Therapy Evaluation SERVICE DATE: 09/05/2017 SERVICE TIME: 847 to 927 ROOM: [place] [address] Recommended Discharge Disposition: Acute Rehab Recommended Discharge [...] living (ADL) Interventions Provided: Evaluation;Self Custodial Management (23261) $ Evaluation-Moderate (39398) Billed Units: 1 unit Self Custodial Management (25750) Treatment Minutes: 12 1 unit Skilled Intervention(s): [...] Environment Patient Lives With: Facility Care (at [facility]) Assistance Available: 24 Hour Entry To Home: [...] September 05, 2017 TIME: 9:42 AM PAGER: [phone] PROGRESS Observed: 09/05/2017 Status: COMPLETED Source: [place] 9:40 AM [facility]IN[facility] OTHER CAMPUS REPOSITORY HNO ID: [id number] Author: Tri Costa) Snatosh Service: Hospital Medicine Author Type: Nurse Practitioner Type: Progress Notes Filed: 09/05/2017 9:50 AM Note Text: DEPARTMENT OF HOSPITAL MEDICINE PROGRESS NOTE SERVICE DATE: 09/05/2017 SERVICE TIME: 9:40 AM Hospital Medicine/Primary Attending: Tri Frost APRN.CNP NIGHT AND WEEKEND COVERAGE: Nights: Please contact pager [phone]. Subjective INTERVAL HPI: Still with significant tremors, [...] 05, 2017 TIME: 9:49 AM PAGER/CONTACT #: [phone] NURSING PROG Observed: 09/05/2017 Status: COMPLETED Source: [place] 7:52 AM [facility] REPOSITORY HNO ID: [id number] Author: Spring (Rn) JOSE Herrera Service: (none) Author Type: Registered Nurse Type: Nursing Progress Note Filed: 09/05/2017 5:27 PM Note Text: Nursing Progress Note Patient Name: Sherita Jurado Patient Location: [place] [address]/[id number]- Daily Note: 0700: Assumed care of patient. [...] RN CBC Collected: 09/05/2017 Status: F Source: [place] 3:33 AM [facility] REPOSITORY TYPE CODE TESTS RESULT OUT [...] Performed By: #### CBC, BMP, MG1 #### [facility] [address] [facility] [phone] BASIC METABOLIC PANL Collected: 09/05/2017 Status: F Source: [place] 3:33 AM CLINIC OTHER CAMPUS REPOSITORY TYPE CODE TESTS RESULT OUT OF REFERENCE UNITS RANGE LAB GLU 74-99 mg/dL Glucose 97 Result Comment: The [place] Diabetes Association (ADA) provides guidance for cutoff [...] Standards of Medical Care in Diabetes 2016, [place] [employer] Association. Diabetes Care. 2016.39(Suppl 1). LAB [...] has been calibrated to be traceable to IDAL. An eGFR <60 mL/min/1.73m2 for >3 months is consistent with chronic kidney disease. Refer to KDOQI guidelines for clinical interpretation. In patients with unstable renal function, e.g. those with acute kidney injury, the eGFR may not accurately reflect actual GFR. Performed By: #### CBC, BMP, MG1 #### [facility] [address] [facility] [phone] MAGNESIUM Collected: 09/05/2017 Status: F Source: [place] 3:33 AM [facility] REPOSITORY TYPE CODE TESTS RESULT OUT OF REFERENCE UNITS RANGE LAB MG 1.7-2.3 mg/dL Magnesium 2.1 Performed By: #### CBC, BMP, MG1 #### [facility] [address] [place] [address] CONSULT Observed: 09/04/2017 Status: COMPLETED Source: [place] 11:11 PM [facility] REPOSITORY HNO ID: [id number] Author: Silva Bell Service: Psychology Author Type: Psychologist Type: Consults Filed: 01/16/2018 7:29 PM Note Text: Will refer to Dr. Lizarraga for medication adjustment. Needs inpatient psychiatry transfer. NURSING PROG Observed: 09/04/2017 Status: COMPLETED Source: [place] 7:17 PM [facility] REPOSITORY HNO ID: [id number] Author: Kamila SpencerRn) JOSE Harry Service: Nursing Author Type: Registered Nurse Type: Nursing Progress Note Filed: 09/05/2017 5:30 AM Note Text: Nursing Progress Note Patient Name: Sherita Jurado [place] [facility] [id number] Daily Note: 1918: Assumed care of patient [...] CASE MANAGEM Observed: 09/04/2017 Status: COMPLETED Source: [place] 3:48 PM [facility] REPOSITORY HNO ID: [id number] Author: Geraldine Castaneda (Sw) Service: Care Management Author Type: Wall Man Type: Care Mgt Progress Note Filed: 09/04/2017 3:50 PM Note Text: CARE MANAGEMENT PROGRESS NOTE SERVICE DATE: 09/04/2017 SERVICE TIME: 3:45pm LOS: 0 days EMR reviewed. Neuro suggesting possible inpatient Psych/Neuro. PT recommending Acute Rehab. CM continuing to monitor for d/c disposition. SIGNATURE: PEDRO Becker PATIENT NAME: Sherita Jurado DATE: September 04, 2017 TIME: 3:48 PM PAGER/CONTACT #: [phone] NUTRITION Observed: 09/04/2017 Status: COMPLETED Source: [place] 2:23 PM [facility] REPOSITORY HNO ID: [id number] Author: Luz Erwin Service: Nutrition Therapy Author [...] dizziness, resting tremor, vitamin D deficiency Lives assisted Present Diet Order: Full Liquid Enteral Access: [...] lb) 01/10/16 : 99.3 kg (219 lb) [place] Body Weight: 74kg Resting Metabolic Rate: 1603 Estimated kilocalorie needs: 1800 kilocalories determined by 20-25 kcal/kg Estimated protein needs: 85 grams determined by 1.1-1.5 g/kg [place] weight Estimated fluid needs:1800 milliliters based on [...] PM PROGRESS Observed: 09/04/2017 Status: COMPLETED Source: [place] 9:45 AM [facility] REPOSITORY HNO ID: [id number] Author: Tri Frost Service: Hospital Medicine Author Type: Nurse Practitioner Type: Progress Notes Filed: 09/04/2017 4:50 PM Note Text: DEPARTMENT OF HOSPITAL MEDICINE PROGRESS NOTE SERVICE DATE: 09/04/2017 SERVICE TIME: 9:45 AM Hospital Medicine/Primary Attending: Tri Frost APRN.CNP NIGHT AND WEEKEND COVERAGE: Nights: Please contact pager [phone]. Subjective INTERVAL HPI: Still with significant tremors [...] VTE Prophylaxis/Anticoagulants 09/03/171914 vte pharmacologic prophylaxis contraindicated (md,oh) 09/03/171914 pneumatic compression stockings (md,nv) VTE Prophylaxis: VTE prophylaxis appropriate Disposition: TBD, possible transfer to inpatient psych Plan of care discussed with: Attending, Patient, RN and Consultants: Dr. Chowdary SIGNATURE: Tri Frost APRN.CNP PATIENT NAME: Sherita Jurado DATE: September 04, 2017 TIME: 4:33 PM PAGER/CONTACT #: [phone] NURSING PROG Observed: 09/04/2017 Status: COMPLETED Source: [place] 9:31 AM [facility] OTHER [facility] REPOSITORY HNO ID: [id number] Author: Spring Watts) JOSE Herrera Service: (none) Author Type: Registered Nurse Type: Nursing Progress Note Filed: 09/04/2017 7:00 PM Note Text: Nursing Progress Note Patient Name: Sherita Jurado Patient Location: [place] [id number] Daily Note: 0700: Assumed care of patient. [...] THERAPY NT Observed: 09/04/2017 Status: COMPLETED Source: [place] 8:55 AM [facility] OTHER CAMP[facility] REPOSITORY HNO ID: [id number] Author: Dia Riojas (Pt) Dlugoss Service: Physical Therapy Author Type: Physical Therapist Type: Therapy (PT/OT/Speech/Resp) Filed: 09/04/2017 9:00 AM Note Text: Physical Therapy Evaluation SERVICE DATE: 09/04/2017 SERVICE TIME: 809 to 829 ROOM: [id number] Recommended Discharge Disposition: Acute Rehab Recommended Discharge [...] to his PFL of independence at the assisted. Pt has significantly declined from his independent [...] balance in order to return home to assisted Rehab Potential: Good PLAN: Treatment Frequency (times per week): 5 Current admission Treatment Interventions: Energy Conservation Training;Strengthening;Balance Training;Neuromuscular Re-education Plan of Care developed with: Patient TREATMENT INTERVENTIONS: Therapy Diagnosis: Reduced mobility-other;Muscle Weakness (generalized);Unsteadiness on feet;Abnormalities of gait and mobility-other;Difficulty walking-musculoskeletal;Decreased activities of daily living (ADL) Interventions Provided: Evaluation;Gait Training (31496) $ Evaluation-Low (69503) Billed Units: 1 unit Gait Training (71394) Treatment Minutes: 10 1 unit Skilled Intervention(s): [...] started having choking episodes while eating. The assisted is now having difficulty caring for patient [...] Environment Patient Lives With: Facility Care (at [facility]) Assistance Available: 24 Hour Entry To Home: [...] THERAPY NT Observed: 09/04/2017 Status: COMPLETED Source: [place] 8:30 AM [facility] OTHER CAMPUS REPOSITORY HNO ID: [id number] Author: Eleonora ([employer]) Samanta Mondragon CCC/PORCELAIN MIXER Service: Speech/Swallow Author Type: Speech Language Pathologist Type: Therapy (PT/OT/Speech/Resp) Filed: 09/04/2017 9:25 AM Note Text: Attestation signed by Samira Garcia at 09/15/2017 7:20 PM Samira Garcia APRN.CNP 09/15/2017 7:20 PM Speech Therapy Clinical Swallow Evaluation SERVICE DATE: 09/04/2017 SERVICE TIME: 829 to 15 ROOM: [place] [address] Nursing Recommendations: Reinforce use of swallowing strategies [...] oropharyngeal phase Interventions Provided: Clinical Swallow Evaluation (27619);Dysphagia Therapy (05488) $ Clinical Swallow Evaluation (94608) Billed Units: 1 unit Clinical Swallowing assessment completed to determine the patient's current swallowing skills and potential need for additional diagnostics and/or therapeutic intervention. $ Dysphagia Therapy (44420) Billed Units: 1 unit Skilled Interventions: -Educated [...] for this therapy evaluation/treatment. SIGNATURE: Eleonora Mondragon [facility]IXER PATIENT NAME: Sherita Jurado DATE: September 04, 2017 TIME: 9:20 AM PAGER: [phone] PROGRESS Observed: 09/04/2017 Status: COMPLETED Source: [place] 6:42 AM [facility] REPOSITORY HNO ID: [id number] Author: Eugenia Rai Service: Hospital Medicine Author Type: Physician Type: Progress Notes Filed: 09/04/2017 6:47 AM Note Text: SHORT HOSPITALIST PROGRESS NOTE Name: Sherita Jurado SERVICE DATE: 09/04/2017 SERVICE TIME: 6:42 AM Hospital Medicine/Primary Attending: Eugenia Rai MD NIGHT COVERAGE BETWEEN 5.30P-7.30A Page [phone] Nursing staff called regarding unable to void. Patient was straight cath with 1100 cc of urine output. Started patient on Flomax. Plan of care discussed with: RN SIGNATURE: Eugenia Rai MD DATE: September 04, 2017 TIME: 6:42 AM NURSING PROG Observed: 09/04/2017 Status: COMPLETED Source: [place] 6:05 AM [facility] REPOSITORY HNO ID: [id number] Author: Kamila Harry RN Service: Nursing Author Type: Registered Nurse Type: Nursing Progress Note Filed: 09/04/2017 6:14 AM Note Text: Nursing Progress Note Patient Name: Sherita Jurado [place] [facility] [id number] Daily Note: 0605: Paged hospitalist regarding patient's [...] RN CBC Collected: 09/04/2017 Status: F Source: [place] 3:35 AM [facility] OTHER CAMPUS REPOSITORY TYPE CODE TESTS [...] Performed By: #### CBC, BMP, MG1 #### [facility] [address] [facility] [phone] BASIC METABOLIC PANL Collected: 09/04/2017 Status: F Source: [place] 3:35 AM [facility] REPOSITORY TYPE CODE TESTS RESULT OUT OF REFERENCE UNITS RANGE LAB GLU 74-99 mg/dL Glucose 88 Result Comment: The [place] Diabetes Association (ADA) provides guidance for cutoff [...] Standards of Medical Care in Diabetes 2016, [place] [employer]. Diabetes Care. 2016.39(Suppl 1). LAB [...] Performed By: #### CBC, BMP, MG1 #### [facility] [address] [place], [place] [id number] MAGNESIUM Collected: 09/04/2017 Status: F Source: [place] 3:35 AM [facility] REPOSITORY TYPE CODE TESTS RESULT OUT OF REFERENCE UNITS RANGE LAB MG 1.7-2.3 mg/dL Magnesium 2.2 Performed By: #### CBC, BMP, MG1 #### [facility] [address] [place], [place] [id number] NURSING PROG Observed: 09/04/2017 Status: COMPLETED Source: [place] 1:06 AM [facility] REPOSITORY HNO ID: [id number] Author: Estelita (Rn) Ciro, RN Service: (none) Author Type: Registered Nurse Type: Nursing Progress Note Filed: 09/04/2017 6:38 AM Note Text: Nursing Progress Note Patient Name: Sherita Jurado Patient Location: [place] [id number] 0100- Patient resting in bed with eyes [...] NURSING PROG Observed: 09/03/2017 Status: COMPLETED Source: [place] 8:05 PM [facility] OTHER [facility] REPOSITORY HNO ID: [id number] Author: Kamila (Rn) JOSE Harry Service: Nursing Author Type: Registered Nurse Type: Nursing Progress Note Filed: 09/03/2017 11:58 PM Note Text: Nursing Progress Note Patient Name: Sherita Jurado Patient Location: [id number] Daily Note: 1930: Assumed care of patient [...] RN CONSULT Observed: 09/03/2017 Status: COMPLETED Source: [place] 6:47 PM [facility] OTHER CAMPUS REPOSITORY HNO ID: [id number] Author: Martha Chowdary Jr. Service: Neurology Author [...] tremor, vitamin D deficiency who presented to [facility] from his assisted for progressively worsening tremor. Per patient, tremor [...] cancer- referral made - Obesity - On fci drug therapy - Palpitations - Schizophrenia (HCC) [...] September 03, 2017 TIME: 6:47 PM PAGER: [phone] HISTORY PHYSICAL Observed: 09/03/2017 Status: COMPLETED Source: [place] 6:44 PM [facility] OTHER CAMPUS REPOSITORY [facility] ID: [id number] Author: Samira Garcia Service: Hospital Medicine Author Type: Nurse Practitioner Type: HANDP Filed: 09/03/2017 7:32 PM Note Text: Attestation signed by Francisco Starks at 09/03/2017 8:[address] [facility] STAFF PHYSICIAN NOTE OF PERSONAL INVOLVEMENT IN CARE I have reviewed the history and physical examination obtained and documented by the physician assistant professor nurse education and I personally participated in the vernon components. I have discussed the case and management of the patient's care. 71 Y M with PMH of schizophrenia, dizziness, resting tremor, vitamin D deficiency who lives in assisted, comes in for evaluation of worsening tremors for last 2 months, difficulty performing his ADL's and frquent falls. Avinash other complaints. Neurology appointment is 2 months away from now and staff at assisted couldn't able to manage him. A/P: Could [...] Physician: David Hidalgo MD NIGHT COVERAGE Page [phone] for any questions between 5.30p-7.30a ASSESSMENT AND PLAN Active Hospital Problems Diagnosis - Tremors of nervous system -worsening over last 2-3 months after risperdal was stopped -neuro consulted -care management consulted to help with discharge planning- from assisted and needing more assistance with ADL's -PT/OT [...] for last 2 months. Patient is from assisted and nursing care partner was concerned because his tremors have been [...] cancer- referral made - Obesity - On intermediate manager drug therapy - Palpitations - Schizophrenia (HCC) [...] NURSING PROG Observed: 09/03/2017 Status: COMPLETED Source: [place] 6:30 PM [facility] OTHER CAMPUS REPOSITORY HNO ID: [id number] Author: Kameron Dacosta (Rn) JOSE Allen Service: Nursing Author Type: Registered Nurse Type: Nursing Progress Note Filed: 09/03/2017 7:04 PM Note Text: Nursing Progress Note Patient Name: Sherita Jurado [place] [facility] [id number] 1830- Transfer Note: Patient transferred into room/unit 320-2 in stable condition. Actions taken: No futher actions taken at this time. Will continue to monitor and check with patient. Neuro on floor and into see patient. 1845- Patient ambulated in room with assist of 2 RN and 1 MD. This note was completed by: Kameron Allen RN ED NOTE Observed: 09/03/2017 Status: COMPLETED Source: [place] 6:12 PM [facility] REPOSITORY HNO ID: [id number] Author: Nga SpencerRn) JOSE Boss Service: (none) Author Type: Registered Nurse Type: ED Notes Filed: 09/03/2017 6:12 PM Note Text: Report was called to Kamila GARCIA Pt was updated of his bed assignment ED NOTE Observed: 09/03/2017 Status: COMPLETED Source: [place] 6:00 PM [facility] HNO ID: [id number] Author: Nga Watts) JOSE Boss Service: (none) [...] ED NOTE Observed: 09/03/2017 Status: COMPLETED Source: [place] 5:58 PM [facility] REPOSITORY HNO ID: [id number] Author: Nga Boss RN Service: (none) Author Type: Registered Nurse Type: ED Notes Filed: 09/03/2017 5:59 PM Note Text: Heads up was called to Lennox Ambriz RN ED NOTE Observed: 09/03/2017 Status: COMPLETED Source: [place] 5:32 PM [facility] REPOSITORY HNO ID: [id number] Author: Nga Watts) JOSE Boss Service: (none) Author Type: Registered Nurse Type: ED Notes Filed: 09/03/2017 5:33 PM Note Text: Pt remains having tremors He denies any pain Alert and oriented times 3 CT BRAIN WO IVCON Observed: 09/03/2017 Status: F Source: [place] 4:57 PM [facility] OTHER CAMPUS REPOSITORY * * *Final Report* * * DATE OF EXAM: Sep 03 2017 4:57PM [facility] IVCON / [...] Employed: No dose reduction techniques were required Belt Polisher: WILLOW Transcribe Date/Time: Sep 03 2017 5:05P Dictated by : REGINALD DIETRICH MD This examination was interpreted and the report reviewed and electronically signed by: REGINALD DIETRICH MD on Sep 03 2017 5:10PM EST [id number] ED NOTE Observed: 09/03/2017 Status: COMPLETED Source: [place] 4:56 PM [facility] REPOSITORY HNO ID: [id number] Author: Nga Boss RN Service: (none) Author Type: Registered Nurse Type: ED Notes Filed: 09/03/2017 4:56 PM Note Text: Pt to ct scan per the er cart and tech was bedside CASE MGT INIT Observed: 09/03/2017 Status: COMPLETED Source: [facility] 4:44 PM [facility] REPOSITORY HNO ID: [id number] Author: Nena Noel (Sw) Service: (none) Author Type: Wall Man Type: Care Mgt Initial Assessment Filed: 09/03/2017 5:50 PM Note Text: CARE MANAGEMENT: ASSESSMENT AND DISCHARGE PLAN SERVICE DATE: 09/03/2017 SERVICE TIME: 3:00 pm PRIMARY CARE PHYSICIAN: David Hidalgo MD ADMISSION STATUS: Emergency Needs Prior to Discharge: Accepting Facility;Facility or Agency Choices;Discharge Transportation;Home Care Order;OT/PT Evaluation 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 No SOCIAL: Living Arrangement: [facility] Lives With: N/A Patient From Facility Financial Resources: Disabled Primary Contact: Extended Emergency Contact Information Primary Emergency Contact: XuanMartha Admire Mobile Relation: Guardian Supportive: Unable to assess at this time Other Important Patient Contacts: Robreto Mishra) Manager [facility] of assisted [phone] or [employer] [phone] Caregiver Assessment: Caregiver is ready, willing and able to meet the patient's needs as recommended by the inter-professional team? Needs are unknown at this time Patient's transition needs and plan for meeting these needs: Pt is from [facility] and it is unclear what the pt's needs are at this time Does the patient have an acute stroke diagnosis, or has the patient had a stroke during this admission? No Medication Adherence: Not addressed during this assessment as pt lives in assisted Are you interested in bedside delivery of [...] OF CHOICE EXPLAINED: N/A POTENTIAL TRANSITION PLANS Intermediate/Supervised Living Home Care Long-Term Facility/Intermediate Care Facility IRENA requested SW speak with production supply equipment tender from assisted due to pt's condition and possible inability for assisted to provide care for the pt at this time. Per IRENA, pt with worsening tremor and assisted is concerned about pt's safety and ability of the staff to care for the pt at the assisted. JOAO met with pt and Roberto Fofana (Diana), research & insights executive of the assisted where the pt resides, bedside. Pt does have visible tremor at rest. Per Diana, pt had been living in an independent unit and going to the [facility] regularly for exercise. Approximately three months ago, Diana stated they noticed a decline in the pt's functioning and moved him into the main house. Diana reported that in April the pt's motion graphics artist, Dr. Holder, took him off Resperidol and [...] Ensure. Diana stated the staff at the assisted has been cutting up the pt's food but they are unable to assist with eating. Diana reported the pt and guardian have requested a swallow study from the PCP but the pt has not had this yet. Diana also noted that she and the pt's guardian are concerned about the pt's safety at the assisted. Diana mentioned the pt has fallen out [...] 03, 2017 TIME: 4:44 PM PAGER/CONTACT #: [phone] ED NOTE Observed: 09/03/2017 Status: COMPLETED Source: [place] 4:12 PM [facility] OTHER CAMPUS REPOSITORY HNO ID: [id number] Author: Nga SpencerRn) JOSE Boss Service: (none) Author Type: Registered Nurse Type: ED Notes Filed: 09/03/2017 4:13 PM Note Text: Dr stone rounds on the pt Pt is still having tremors URINALYSIS Collected: 09/03/2017 Status: F Source: [place] 4:00 PM CLINIC OTHER CAMPUS REPOSITORY TYPE CODE TESTS RESULT OUT OF RANGE REFERENCE UNITS LAB UCOL Yellow Color Yellow LAB [facility] Clear Clarity Abnormal Slightly Hazy Alert LAB UGLUC Negative mg/dL Glucose, Urine Negative LAB UBIL Negative Bilirubin, Urine Negative LAB UKET Negative Ketones, Urine Negative LAB [facility] 1.001-1.029 Specific [place], Ur 1.010 LAB UHGB Negative Hemoglobin/Blood, Negative Ur LAB UPH 5.0-8.0 pH 7.5 LAB UPROT Negative mg/dL Protein, Urine Negative LAB UUROB 0.2-1.0 Urobilinogen 0.2 LAB UNITR Negative Nitrites Negative LAB ULKEST Negative Leukest Negative Performed By: #### UA, UAMIC #### [facility] [address] [facility] [phone] URINE MICROSCOPIC Collected: 09/03/2017 Status: F Source: [place] (FOR LAB USE ONLY) 4:00 PM CLINIC [...] Amorphous Performed By: #### UA, UAMIC #### [facility] [address] [facility] [phone] XR CHEST 1V FRONTAL Observed: 09/03/2017 Status: F Source: [facility] 3:52 PM CLINIC OTHER CAMPUS REPOSITORY [...] no pleural fluid. IMPRESSION: No acute process. Belt Polisher: PSCB Transcribe Date/Time: Sep 03 2017 3:58P Dictated by : REGINALD DIETRICH MD This examination was interpreted and the report reviewed and electronically signed by: REGINALD DIETRICH MD on Sep 03 2017 3:59PM EST [id number] ED NOTE Observed: 09/03/2017 Status: COMPLETED Source: [place] 3:38 PM [facility] REPOSITORY HNO ID: [id number] Author: Nga SpencerRnJulio César Boss RN Service: (none) Author Type: Registered Nurse Type: ED Notes Filed: 09/03/2017 3:38 PM Note Text: Pt is attempting To void per the urinal in the er bed Pt was instructed not to get out of the bed ED PROV NOTE Observed: 09/03/2017 Status: COMPLETED Source: [place] 3:37 PM [facility] REPOSITORY HNO ID: [id number] Author: Renetta MunizCJulio César Malcolm Service: (none) Author Type: Physician Grey Tender Type: ED Provider Notes Filed: 09/03/2017 5:55 PM Note Text: ED Provider Note Patient Name: Sherita Jurado SERVICE DATE: 09/03/17 History No chief complaint on file. This is a 71 y/o male PMHx of schizophrenia, dizziness, resting tremor, vitamin D deficiency here with assisted caregiver for progressively worsening tremor over the past few months. Patient lives in a assisted. His assisted caregiver is at bedside to assist with [...] have significantly decreased due to tremor. The assisted is now having difficulty caring for patient [...] cancer- referral made - Obesity - On intermediate manager drug therapy - Palpitations - Schizophrenia (HCC) [...] Abs Lymph 1.25 1.00 - 4.00 k/uL [place]% 6.7 % Abs [place] 0.51 <0.87 k/uL Eosin% 0.8 % Abs [...] Negative Negative Ketones, Urine Negative Negative Specific [place], Ur 1.010 1.001 - 1.029 Hemoglobin/Blood,Ur Negative [...] Result time 09/03/17 17:12:30 Final result by [facility] [place] Provider (09/03/17 17:12:30) Impression: IMPRESSION: Age-related changes. ?Otherwise unremarkable CT scans of the head. ?Motion artifact limits detail. CT Ionizing Radiation: CT Dose Length Product (DLP): ?1271 ?mG*y cm CT Dose Reduction Employed: ?No dose reduction techniques were required Belt Polisher: WILLOW ? Transcribe Date/Time: Sep 03 2017 ?5:05P Dictated by : REGINALD DIETRICH MD This examination was interpreted and the report reviewed and electronically signed by: REGINALD DIETRICH MD on Sep 03 2017 ?5:10PM ?EST XR CHEST 1V FRONTAL PORT (Final result) Result time 09/03/17 16:01:19 Final result by [facility] [place] Provider (09/03/17 16:01:19) Impression: IMPRESSION: No acute process. Belt Polisher: WILLOW ? Transcribe Date/Time: Sep 03 2017 ?3:58P Dictated by : REGINALD DIETRICH MD This examination was interpreted and the report reviewed and electronically signed by: REGINALD DIETRICH MD on Sep 03 2017 ?3:59PM ?EST -EKG: SR with fusion complexes. -differential includes infectious etiology, Wasatch disease, Parkinson's, medication induced, electrolyte disturbances, dehydration Procedures Medical Decision Making MDM This is 71 y/o male PMHx of Schizophrenia resides in assisted here with caregiver for evaluation of progressively [...] of the patient and have reviewed the PA/SENIOR INSTRUCTOR note. My vernon findings include: History - Mr. Jurado is a pleasant 71 yo M presenting [...] to see (can't get appropriate care at assisted anymore). ? Essential tremor or Wasatch's or med side effect. Dr. Starks will admit. Clinically less likely tardive dyskinesia (haldol use) as no abnl tongue movements. Other additions or changes: None Signature: Avi Stone MD Date: 09/03/2017 Time: 4:16 PM Clinical Impressions as of Sep 03 1726 Tremor Plan The patient was admitted to medicine service. SIGNATURE: IRENA Guerrero Pa-C 09/03/17 2134 CBC AND DIFFERENTIAL Collected: 09/03/2017 Status: F Source: [place] 3:28 PM CLINIC OTHER CAMPUS REPOSITORY TYPE [...] k/uL Abs Lymph 1.25 LAB AMONO % [place]% 6.7 LAB AAMONO <0.87 k/uL Abs [place] 0.51 LAB AEOS % Eosin% 0.8 LAB AAEOS <0.46 k/uL Abs Eosin 0.06 LAB ABASO % Baso% 0.5 LAB AABASO <0.11 k/uL Abs Baso 0.04 Performed By: #### CBCDIF, CMP, MG1 #### [facility] [address] [place] [address] COMP METABOLIC PANEL Collected: 09/03/2017 Status: F Source: [place] 3:28 PM CLINIC OTHER CAMPUS REPOSITORY TYPE [...] 74-99 mg/dL Glucose 89 Result Comment: The [place] Diabetes Association (ADA) provides guidance for cutoff [...] Standards of Medical Care in Diabetes 2016, [place] [employer]. Diabetes Care. 2016.39(Suppl 1). LAB [...] Performed By: #### CBCDIF, CMP, MG1 #### [facility] [address] [facility] [phone] MAGNESIUM Collected: 09/03/2017 Status: F Source: [place] 3:28 PM [facility] REPOSITORY TYPE CODE TESTS RESULT OUT OF REFERENCE UNITS RANGE LAB MG 1.7-2.3 mg/dL Magnesium 2.1 Performed By: #### CBCDIF, CMP, MG1 #### [facility] [address] [facility] [phone] TROPONIN T Collected: 09/03/2017 Status: F Source: [place] 3:28 PM [facility] REPOSITORY TYPE CODE TESTS RESULT OUT OF REFERENCE UNITS RANGE LAB TROPT 0.000-0.029 ng/mL Troponin T <0.010 Performed By: #### ATTILA #### [facility] [address] [place] [address] TSH Collected: 09/03/2017 Status: F Source: [place] 3:28 PM [facility] REPOSITORY TYPE CODE TESTS RESULT OUT OF RANGE REFERENCE UNITS LAB TSH 0.400-5.500 uU/mL TSH 2.430 Performed By: #### TSH #### [facility] [address] [place] [address] ED NOTE Observed: 09/03/2017 Status: COMPLETED Source: [place] 3:08 PM [facility] REPOSITORY HNO ID: [id number] Author: Nga (Rn) JOSE Boss Service: (none) Author Type: Registered Nurse Type: ED Notes Filed: 09/03/2017 3:08 PM Note Text: Wall Man is bedside at this time shank rander remains with the pt CNNURSE Observed: 09/02/2017 Status: COMPLETED Source: [place] 10:15 AM [facility] REPOSITORY Nurse Visit (AGINTMLW) SHERITA JURADO ([id number]) 1945 M Date Time Provider Department 09/02/17 [...] Intramuscular Given without incident. Site: left arm Intelligence Agent: TattvataUepaa Lot #: [id number] [facility] #: [id number] Expiration Date: 02/2019 Dr. Hidalgo present in clinic at time of injection. The date due for the next injection is 1 week. Deanne Jones CMA Referring Provider: DAVID HIDALGO [[id number]] Allergies As of Date: 09/02/2017 Noted Allergy Reaction GOOSE FEATHERS ALLERGENIC EXTRACT 11/08/2016 16 - Unknown ZYPREXA (OLANZAPINE) 11/08/2016 16 - Unknown Date Reviewed: 08/25/2017 Reviewed by: Mayra ([facility]) Art - Fully Assessed Reason for Visit: Nurse Visit [792] Primary Visit Diagnosis:B12 deficiency [E53.8] Order(s):ADMIN VITAMIN B12 INJ [[id number]] Order #: [id number] Prescriptions as of 09/02/2017 Sig: BENZTROPINE 1 [...] Intramuscular Given without incident. Site: left arm Intelligence Agent: TattvataUepaa Lot #: [id number] [facility] #: [id number] Expiration Date: 02/2019 Dr. Hidalgo present in clinic at time of injection. The date due for the next injection is 1 week. Deanne Jones CMA Encounter Status:Closed by DEANNE JONES on 09/02/17 CNNURSE Observed: 08/26/2017 Status: COMPLETED Source: [place] 10:45 AM [facility] REPOSITORY Nurse Visit (AGINTMLW) SHERITA JURADO ([id number]) 1945 M Date Time Provider Department 08/26/17 10:45 AM NURSE EDGAR PACHECO AGINTMLW During your visit today, we recorded the following information about you: Kendal Cabrales CMA 08/26/2017 10:37 AM Signed Patient has been identified by name and date of : Yes Sherita is here for an injection of Vitamin B12 Dose: 1 ml Route: Intramuscular Given without incident. Site: right deltoid Intelligence Agent: somerset Lot #: [id number] [facility] #: [id number] Expiration Date: 02/2019 Chani Pelaez present in clinic at time of injection. The date due for the next injection is 1 week. Kendal Cabrales CMA Referring Provider: SELF [200] Allergies As of Date: 08/26/2017 Noted Allergy Reaction GOOSE FEATHERS ALLERGENIC EXTRACT 11/08/2016 16 - Unknown ZYPREXA (OLANZAPINE) 11/08/2016 16 - Unknown Date Reviewed: 08/25/2017 Reviewed by: Mayra ([facility]) Art - Fully Assessed Reason for Visit: [...] Intramuscular Given without incident. Site: right deltoid Intelligence Agent: Pixelle Lot #: [id number] [facility] #: [id number] Expiration Date: 02/2019 Chani Pelaez present in [...] Intramuscular Given without incident. Site: right deltoid Intelligence Agent: Taposé Lot #: [id number] [facility] #: [id number] Expiration Date: 02/2019 Dr. Myrick present in clinic at time of injection. The date due for the next injection is 08/18/17. Brigid Villaseñor LPN Disc: Reason for discontinue is not on file. Cosign accepted by MD GWEN, DAVID[[id number]] on 08/17/2017 4:02 PM Level of Service: OFFICE VISIT NO CHARGE WITH PROCEDURE [[id number]] LOS history recorded Follow-up and Disposition History Recorded Encounter Status:Closed by KENDAL CABRALES on 08/26/17 PROGRESS Observed: 08/25/2017 Status: COMPLETED Source: [place] 12:10 PM [facility] HNO ID: [id number] Author: David Hidalgo Service: (none) Author Type: Physician Type: Progress Notes Filed: 09/07/2017 11:14 PM Note Text: Subjective: Sherita Jurado is a 71 year old White male, Patient presents with: tremors worsening: seeing neurologist Dr. Reyes in October for the first time trouble swallowing food and has been choking more frequently: started the end of July . HPI Here with staff member from assisted. Per staff, pt has been choking on food at times - solids and liquids. Also has been making a mess while eating - d/t tremors, so not been eating much. Will eat if staff keeps encouraging him to do so. retirement has been giving him more finger foods. Staff at are not allowed to feed him. No cough/ SOB/ fever/ chills in past few days. Weight loss - 4 lbs in past 1 month - but per assisted records 25 lbs in past 5 month. [...] is in October. Guardian - Mr. Cole [phone] PAST MEDICAL HISTORY Diagnosis Date - Actinic keratosis - Breast lump LT breast; cavernous hemangioma/excised - Dizziness - Epidermoid cyst of skin - Lipoma of skin forearms and abdomen - Mammogram abnormal suspicious of cancer- referral made - Obesity - On intermediate manager drug therapy - Palpitations - Schizophrenia (HCC) [...] is here for an injection of Vitamin X03Uofz: 1mlRoute: IntramuscularGiven without incident.Site: right deltoidManufacturer: [employer] [facility] #: [id number] #: [id number] Date: 02/2019Dr. Sheets present in clinic at [...] MD This note was partially generated using Normal voice recognition system, and there may be some incorrect words, spellings, and punctuation that were not noted in checking the note before saving. CNOV Observed: 08/25/2017 Status: COMPLETED Source: [place] 11:30 AM [facility] REPOSITORY Office Visit (AGINTMLW) SHERITA JURADO ([id number]) 1945 M Date Time Provider Department 08/25/17 [...] . HPI Here with staff member from assisted. Per staff, pt has been choking on food at times - solids and liquids. Also has been making a mess while eating - d/t tremors, so not been eating much. Will eat if staff keeps encouraging him to do so. retirement has been giving him more finger foods. Staff at are not allowed to feed him. No cough/ SOB/ fever/ chills in past few days. Weight loss - 4 lbs in past 1 month - but per assisted records 25 lbs in past 5 month. [...] is in October. Guardian - Mr. Cole [phone] PAST MEDICAL HISTORY Diagnosis Date - Actinic keratosis - Breast lump LT breast; cavernous hemangioma/excised - Dizziness - Epidermoid cyst of skin - Lipoma of skin forearms and abdomen - Mammogram abnormal suspicious of cancer- referral made - Obesity - On fci drug therapy - Palpitations - Schizophrenia (HCC) [...] is here for an injection of Vitamin I07Nywy: 1mlRoute: IntramuscularGiven without incident.Site: right deltoidManufacturer: [employer] [facility] #: [id number] #: [id number] Date: 02/2019Dr. Sheets present in clinic at [...] MD This note was partially generated using Normal voice recognition system, and there may be some incorrect words, spellings, and punctuation that were not noted in checking the note before saving. Referring Provider: SELF [200] Allergies As of Date: 08/25/2017 Noted Allergy Reaction GOOSE FEATHERS ALLERGENIC EXTRACT 11/08/2016 16 - Unknown ZYPREXA (OLANZAPINE) 11/08/2016 16 - Unknown Date Reviewed: 08/25/2017 Reviewed by: Mayra ([facility]) Art - Fully Assessed Reason for Visit: [...] [E53.8] Order(s):XR MODIFIED BARIUM SWALLOW W SPEECH [[id number]] Order #: [id number] FUTURE Prescriptions as of 08/25/2017 Sig: BENZTROPINE [...] 09/07/17 CNNURSE Observed: 08/18/2017 Status: COMPLETED Source: [place] 10:15 AM [facility] REPOSITORY Nurse Visit (AGINTMLW) SHERITA JURADO ([id number]) 1945 M Date Time Provider Department 08/18/17 10:15 AM NURSE EDGAR PACHECO AGINTMLJonny During your visit today, we recorded the following information about you: Kendal Cabrales ([facility]) 08/18/2017 11:17 AM Signed Patient has been identified by name and date of : Yes Sherita is here for an injection of Vitamin B12 Dose: 1 ml Route: Intramuscular Given without incident. Site: left deltoid Intelligence Agent: somerset Lot #: [id number] [facility] #: [id number] Expiration Date: 02/2019 Chani Gregory present in [...] Intramuscular Given without incident. Site: left deltoid Intelligence Agent: somerset Lot #: [id number] [facility] #: [id number] Expiration Date: 02/2019 Chani Gregory present in clinic at time of injection. The date due for the next injection is 08/19/17. Kendal Cabrales CMA Level of Service: OFFICE VISIT NO CHARGE WITH PROCEDURE [[id number]] LOS history recorded Follow-up and Disposition History Recorded Encounter Status:Closed by KENDAL CABRALES on 08/19/17 CNNURSE Observed: 08/15/2017 Status: COMPLETED Source: [place] 10:15 AM [facility] Nurse Visit (AGINTMLW) ADRIENSHERITA ([id number]) 1945 M Date Time Provider Department 08/15/17 [...] Intramuscular Given without incident. Site: right deltoid Intelligence Agent: Taposé Lot #: [id number] [facility] #: [id number] Expiration Date: 02/2019 Dr. Myrick present in clinic at time of injection. The date due for the next injection is 08/18/17. Brigid Villaseñor LPN Cosign accepted by MD GWEN, DAVID[[id number]] on 08/17/2017 4:02 PM Follow-up and Disposition History Recorded Encounter Status:Closed by BRIGID VILLASEÑOR LPN on 08/29/17 CNNURSE Observed: 08/14/2017 Status: COMPLETED Source: [place] 10:15 AM [facility] REPOSITORY Nurse Visit (AGINTMLW) SHERITA JURADO ([id number]) 1945 M Date Time Provider Department 08/14/17 [...] (None) Visit Notes: >> Deanne (Madeline) [facility] August 14, 2017 11:16 AM Status: Signed Pt here for b12 injection. Administered without complication and pt dismissed. Deanne Jones CMA Encounter Status:Closed by DEANNE JONES on 08/14/17 PROGRESS Observed: 08/13/2017 Status: COMPLETED Source: [place] 4:51 PM [facility] REPOSITORY HNO ID: [id number] Author: David Hidalgo Service: (none) Author Type: Physician Type: Progress Notes Filed: 08/13/2017 4:52 PM Note Text: Noted. CNNURSE Observed: 08/13/2017 Status: COMPLETED Source: [place] 10:15 AM [facility] REPOSITORY Nurse Visit (AGINTMLW) SHERITA JURADO ([id number]) 1945 M Date Time Provider Department 08/13/17 10:15 AM NURSE DEVANTEM KARLA PACHECO AGINTMLW During your visit today, we recorded the following information about you: Kendal Cabrales CMA 08/13/2017 10:55 AM Signed Patient has been identified by name and date of : Yes Sherita is here for an injection of Vitamin B12 Dose: 1 ml Route: Intramuscular Given without incident. Site: right deltoid Intelligence Agent: somerset [employer] Lot #: [id number] [facility] #: [id number] Expiration Date: 02/2019 Chani Colt present in [...] Intramuscular Given without incident. Site: right deltoid Intelligence Agent: [employer]Audibaseutics Lot #: [id number] [facility] #: [id number] Expiration Date: 02/2019 Chani Gregory present in clinic at time of injection. The date due for the next injection is August 14. Kendal Cabrales CMA Prescriptions ordered this encounter Disp Refills Start End CYANOCOBALAMIN (VIT B-12) 1,000 MCG/* 08/13/2017 08/20/2017 Route: INTRAMUSCULA Level of Service: EST PATIENT VISIT LEVEL 1 [08816] LOS history recorded Follow-up and Disposition History Recorded Encounter Status:Closed by KENDAL CABRALES on 08/13/17 ED NOTE Observed: 08/05/2017 Status: COMPLETED Source: [place] 3:48 AM [facility] REPOSITORY HNO ID: [id number] Author: Cristobal SpencerRn) JOSE Melvin Service: Emergency Medicine Author Type: Registered Nurse Type: ED Notes Filed: 08/05/2017 3:59 AM Note Text: [facility] benefits representative here. ED NOTE Observed: 08/05/2017 Status: COMPLETED Source: [place] 3:23 AM [facility] REPOSITORY HNO ID: [id number] Author: Cristobal SpencerRn) JOSE Melvin Service: Emergency Medicine Author Type: Registered Nurse Type: ED Notes Filed: 08/05/2017 3:23 AM Note Text: [facility] has not arrived. I call them back. ETA is now and additional 20 minutes-per Mark. ED NOTE Observed: 08/05/2017 Status: COMPLETED Source: [place] 2:04 AM [facility] REPOSITORY HNO ID: [id number] Author: Cristobal Watts) Pfeister, RN Service: Emergency Medicine Author Type: Registered Nurse Type: ED Notes Filed: 08/05/2017 2:05 AM Note Text: Patient dresses self at this time without assistance. Aware of plans to go back to [facility]. Discharge instructions reviewed with him. Copy to be sent with him back to [facility] for staff. ED NOTE Observed: 08/05/2017 Status: COMPLETED Source: [place] 1:35 AM [facility] REPOSITORY HNO ID: [id number] Author: Cristobal SpencerRn) JOSE Melvin Service: Emergency Medicine Author Type: Registered Nurse Type: ED Notes Filed: 08/05/2017 1:37 AM Note Text: [facility] called with request for ambulette. ETA is 60 minutes. ED NOTE Observed: 08/05/2017 Status: COMPLETED Source: [place] 1:27 AM [facility] REPOSITORY HNO ID: [id number] Author: Cristobal Melvin RN Service: Emergency Medicine Author Type: Registered Nurse Type: ED Notes Filed: 08/05/2017 1:43 AM Note Text: Daina Fofana calls in. I speak with her. She is given update and patient report. She does not agree with plan of care. States she will call in the morning and file a complaint with the hospital's director. Nursing paramedic supervisor with me at time of this call and is aware she is unhappy. Physician also with me during this call as well as lost charge card clerk. I have explained to caller that [place] from [facility] has been consulted, [facility] pysch also was consulted, and two ER physicians have evaluated patient and feel patient can go to [facility] tonight and follow up with [facility] later this morning as an outpatient. Ms Fofana states she will not be able to pick the patient up nor will the staff member who is at [facility]. She okays [facility] ambulette for transport home. ED NOTE Observed: 08/05/2017 Status: COMPLETED Source: [place] 1:22 AM [facility] REPOSITORY HNO ID: [id number] Author: Cristobal SpencerRnJulio César Melvin RN Service: Emergency Medicine Author Type: Registered Nurse Type: ED Notes Filed: 08/05/2017 1:23 AM Note Text: [place] [employer] calls. States he did make contact with worker at [facility]. They cannot leave as they are there alone. 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 ED NOTE Observed: 08/05/2017 Status: COMPLETED Source: [place] 1:04 AM [facility] REPOSITORY HNO ID: [id number] Author: Cristobal SpencerRn) JOSE Melvin Service: Emergency Medicine Author Type: Registered Nurse Type: ED Notes Filed: 08/05/2017 1:06 AM Note Text: Multiple calls placed to [facility]. No answer. Message left earlier. No return call back. [facility] dispatcher called and request made to have [place] [employer] call us back. Will request [place] [employer] visit [facility] and see if they can get someone to call us. ED NOTE Observed: 08/05/2017 Status: COMPLETED Source: [place] 12:37 AM [facility] REPOSITORY HNO ID: [id number] Author: Cristobal SpencerRn) JOSE Melvin Service: Emergency Medicine Author Type: Registered Nurse Type: ED Notes Filed: 08/05/2017 12:37 AM Note Text: Again call [facility] without getting a live person to answer. No message left. ED NOTE Observed: 08/05/2017 Status: COMPLETED Source: [place] 12:13 AM [facility] REPOSITORY HNO ID: [id number] Author: Cristobal SpencerRn) JOSE Melvin Service: Emergency Medicine Author Type: Registered Nurse Type: ED Notes Filed: 08/05/2017 12:13 AM Note Text: Several calls placed to [facility]. Still getting answering machine. No further messages left. ED NOTE Observed: 08/05/2017 Status: COMPLETED Source: [place] 12:00 AM [facility] REPOSITORY HNO ID: [id number] Author: Cristobal SpencerRn) JOSE Melvin Service: Emergency Medicine Author Type: Registered Nurse Type: ED Notes Filed: 08/05/2017 12:01 AM Note Text: Attempt to call [facility]. Message left for staff to return my call. CNPMatteo Observed: 08/05/2017 Status: COMPLETED Source: [place] 12:00 AM [facility] REPOSITORY Telephone (AGINTMLW) SHERITA JURADO ([id number]) 1945 M Date Time Provider Department 08/05/17 DAVID HIDALGO During your visit today, we recorded the following information about you: Radha Fitch LPN 08/05/2017 3:46 PM Signed TC to [facility], spoke with Facility Director Marsha who states Pt. Is the same, is not same in his apartment, continues to wander, has an appointment with Dr. Holder on 08/06/17 to evaluate Pt. And current medications. Marsha also asked that I relay a message to the nut and bolt assembler, that she return her call regarding Pt. Being returned to the facility in the middle of the night. Voice mail left for Nga Jara, extention [phone]. JESUS Sherwood LPN 08/05/2017 5:16 PM Signed ----- Message from David Hidalgo sent at 08/05/2017 4:55 PM EDT ----- plz let pt know that Vit B12 level is low - will need to start replacement. Will order in separate encounter. Folate ok CMP ok, FLP ok, TSH ok, CBC ok. Thanks. Brigid Villaseñor LPN 08/05/2017 5:19 PM Signed Pt lives in a assisted. Radha Crockett, his caregiver, was notified of his lab results and directives. He uses [facility]. JESUS Mosqueda MD 08/06/2017 4:48 PM Signed Are they able to do B12 I/m injections at the assisted ? Brigid Villaseñor LPN 08/06/2017 5:10 PM Signed Per discussion, unable to administer injections at the assisted. Brigid Villaseñor LPN Allergies As of Date: [...] ED NOTE Observed: 08/04/2017 Status: COMPLETED Source: [place] 11:31 PM [facility] REPOSITORY HNO ID: [id number] Author: Silva SpencerRn) JOSE Kennedy Service: Emergency [...] with psych doctor in , but the assisted can call [facility] anytime during Business hours and speak with case management or pt's nurse during those time. Updated Dr. Orourke on conversion with [place] and she agrees that pt is safe to return back to assisted and f/u. ED NOTE Observed: 08/04/2017 Status: COMPLETED Source: [place] 11:22 PM [facility] REPOSITORY HNO ID: [id number] Author: Silva Watts) JOSE Kennedy Service: Emergency Medicine Author Type: Registered Nurse Type: ED Notes Filed: 08/04/2017 11:22 PM Note Text: [place] from [facility] called back and informed of need for their assistance. ED NOTE Observed: 08/04/2017 Status: COMPLETED Source: [place] 11:06 PM [facility] REPOSITORY HNO ID: [id number] Author: Silva SpencerRn) Marcia, RN Service: Emergency Medicine Author Type: Registered Nurse Type: ED Notes Filed: 08/04/2017 11:07 PM Note Text: [facility] paged to come and evaluate pt again since they referred pt to ED today for placement. ED NOTE Observed: 08/04/2017 Status: COMPLETED Source: [place] 11:02 PM [facility] REPOSITORY HNO ID: [id number] Author: Silva Kennedy RN Service: Emergency Medicine Author Type: Registered Nurse Type: ED Notes Filed: 08/05/2017 1:32 AM Note Text: Spoke with Xiomara again from [facility] psych intake, she reports she needs more info to explain need for this pt to be admitted. Per Xiomara at [facility], pt does not meet requirements for admission to psych unit. ED NOTE Observed: 08/04/2017 Status: COMPLETED Source: [place] 10:16 PM [facility] REPOSITORY HNO ID: [id number] Author: Cristobal Watts) JOSE Melvin Service: Emergency Medicine Author Type: Registered Nurse Type: ED Notes Filed: 08/04/2017 10:16 PM Note Text: Dietary tray served to patient. ED NOTE Observed: 08/04/2017 Status: COMPLETED Source: [place] 10:08 PM [facility] REPOSITORY HNO ID: [id number] Author: Silva Kennedy RN Service: Emergency Medicine Author Type: Registered Nurse Type: ED Notes Filed: 08/04/2017 10:09 PM Note Text: Chart and paperwork faxed to [facility] psych intake, mikey Xiomara [phone] ED NOTE Observed: 08/04/2017 Status: COMPLETED Source: [place] 10:03 PM [facility] REPOSITORY HNO ID: [id number] Author: Cristobal Watts) JOSE Melvin Service: Emergency Medicine Author Type: Registered Nurse Type: ED Notes Filed: 08/04/2017 10:03 PM Note Text: No needs at this time. ED NOTE Observed: 08/04/2017 Status: COMPLETED Source: [place] 9:33 PM [facility] REPOSITORY HNO ID: [id number] Author: Silva Kennedy RN Service: Emergency Medicine Author Type: Registered Nurse Type: ED Notes Filed: 08/04/2017 10:08 PM Note Text: Spoke with Xiomara at [facility] psych intake URINALYSIS ROUTINE Collected: 08/04/2017 Status: F Source: [facility] 9:00 PM HEALTH SYSTEM REPOSITORY TYPE [...] to confirm). LAB LSPG(LOINC) 1.005-1.030 Specific >=1.030 [place], Ur LAB LPHUR(LOINC) 5.0-8.0 pH,Urine 7.0 LAB [...] FEW Urates Performed By: #### ELISSARIN #### [place] [address] URINE DRUG SCREEN Collected: 08/04/2017 Status: F Source: [facility] 9:00 PM HEALTH SYSTEM REPOSITORY TYPE [...] medical diagnostic purposes only. Testing Performed at: [place] [address] Performed By: #### [id number] #### [place] [address] ED NOTE Observed: 08/04/2017 Status: COMPLETED Source: [place] 8:25 PM [facility] REPOSITORY HNO ID: [id number] Author: Cristobal SpencerRn) JOSE Melvin Service: Emergency Medicine Author Type: Registered Nurse Type: ED Notes Filed: 08/04/2017 8:56 PM Note Text: Patient misses urinal and voids on self and floor. Physician aware. Patient cleansed and gown changed. ED NOTE Observed: 08/04/2017 Status: COMPLETED Source: [place] 7:35 PM [facility] REPOSITORY HNO ID: [id number] Author: Cristobal Watts) JOSE Melvin Service: Emergency Medicine Author Type: Registered Nurse Type: ED Notes Filed: 08/04/2017 7:56 PM Note Text: Encouraged for UA. Attempts to void while standing. Unable to void. ED NOTE Observed: 08/04/2017 Status: COMPLETED Source: [place] 6:45 PM [facility] REPOSITORY HNO ID: [id number] Author: Deirdre (Rn) JOSE Love Service: Emergency Medicine Author Type: Registered Nurse Type: ED Notes Filed: 08/04/2017 6:45 PM Note Text: Xray at bedside for portable cxr CHEST 1 VIEW Observed: 08/04/2017 Status: F Source: [facility] 6:41 PM HEALTH SYSTEM REPOSITORY Performed [...] PROV NOTE Observed: 08/04/2017 Status: COMPLETED Source: [place] 6:24 PM [facility] REPOSITORY HNO ID: [id number] Author: Sharlene Orourke MD Service: Emergency Medicine [...] disorder. 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 Forms for transfer completed. Patient was here and cooperative and quiet for the entire visit. He did not wander. After several attempts to have him placed, we again discussed him with [facility]. He has a welfare case worker, and the assisted has options for contacting a nurse or his welfare case worker that they did not exercise. At this time he does not meet the criteria for admission and will be returned to his assisted. They are to follow up. At 0145 the patient is calm and cooperative, pleasantly demented. Sharlene Orourke MD 08/05/17 0151 HEMOGRAM/DIFF Collected: 08/04/2017 Status: F Source: [facility] 6:04 PM HEALTH SYSTEM REPOSITORY TYPE [...] 0.92 LAB LMONN(LOIN 0.20-1.00 thou/cmm C) Abs. [place] 0.42 LAB LEOSN(LOIN 0.00-0.41 thou/cmm C) Abs. E[place] 0.05 LAB LBASN(LOIN 0.00-0.08 thou/cmm C) Abs. Baso 0.02 Performed By: #### LCBCD #### [place] [address] TROPONIN I Collected: 08/04/2017 Status: F Source: [address] [facility] REPOSITORY TYPE CODE TESTS RESULT OUT OF REFERENCE UNITS RANGE LAB LTRP(LOINC) <=0.07 ng/mL Troponin I <0.03 Performed By: #### LTRP #### [place] [address] SALICYLATE Collected: 08/04/2017 Status: F Source: [address] [facility] REPOSITORY TYPE CODE TESTS RESULT OUT OF REFERENCE UNITS RANGE LAB LSAL(LOINC 2.8-20.0 mg/dL ) Salicylate <2.8 Performed By: #### LSAL #### [facility] [address] [place] [address] COMPREHENSIVE PANEL Collected: 08/04/2017 Status: F Source: [facility] 6:04 PM HEALTH SYSTEM REPOSITORY TYPE CODE TESTS RESULT OUT OF REFERENCE UNITS RANGE LAB STEAM TRAP WORKER(LOINC) 136-145 mEq/L Sodium Blood 139 LAB LK(LOINC) [...] 20 Ratio Performed By: #### LP14 #### [place] [address] ALCOHOL, BLOOD Collected: 08/04/2017 Status: F Source: [facility] 6:04 PM HEALTH SYSTEM REPOSITORY TYPE CODE TESTS RESULT OUT OF RANGE REFERENCE UNITS LAB LALC3(LOINC <10 mg/dL ) Alcohol, <10 Blood Performed By: #### LALC3 #### [place] [address] ACETAMINOPHEN Collected: 08/04/2017 Status: F Source: [facility] 6:04 PM HEALTH SYSTEM REPOSITORY TYPE CODE TESTS RESULT OUT OF REFERENCE UNITS RANGE LAB LACTM(LOIN 10-30 mg/L C) Acetaminophen Low <1 Performed By: #### LACTM #### [facility] [address] [place] [address] MDRD EGFR Collected: 08/04/2017 Status: F Source: [facility] 6:04 PM HEALTH SYSTEM REPOSITORY TYPE CODE TESTS RESULT OUT OF RANGE REFERENCE UNITS LAB LGFRF(LOINC >60mL/min/1.73m ) 2 eGFR >60 Result Comment: If the patient is , multiply the result by 1.210. Performed By: #### LGFR #### [facility] [address] [place] [address] ED NOTE Observed: 08/04/2017 Status: COMPLETED Source: [place] 5:53 PM [facility] REPOSITORY HNO ID: [id number] Author: Deirdre (Rn) JOSE Love Service: Emergency Medicine Author Type: Registered Nurse Type: ED Notes Filed: 08/04/2017 5:54 PM Note Text: Dr Rodrigues at bedside with pt ED NOTE Observed: 08/04/2017 Status: COMPLETED Source: [place] 5:48 PM [facility] REPOSITORY HNO ID: [id number] Author: Deirdre (Rn) JOSE Love Service: Emergency Medicine Author Type: Registered Nurse Type: ED Notes Filed: 08/04/2017 5:50 PM Note Text: Pt has been acting abnormally for the past 3 months. Worsening and spoke with AP who felt he needed to be seen in ED CT HEAD W/O CONTRAST Observed: 07/30/2017 Status: F Source: [facility] 8:30 AM HEALTH SYSTEM REPOSITORY Performed [...] abnormality. HEMOGRAM Collected: 07/30/2017 Status: F Source: [facility] 8:05 AM HEALTH SYSTEM REPOSITORY TYPE [...] LCBC #### [facility] [address] [place] [address] COMPREHENSIVE PANEL Collected: 07/30/2017 Status: F Source: [facility] 8:05 HEALTH SYSTEM REPOSITORY TYPE CODE TESTS RESULT OUT OF REFERENCE UNITS RANGE LAB STEAM TRAP WORKER(LOINC) 136-145 mEq/L Sodium Blood 137 LAB LK(LOINC) [...] LP14 #### [facility] [address] [place] [address] LIPID PROFILE Collected: 07/30/2017 Status: F Source: [facility] 8:[facility] REPOSITORY TYPE CODE TESTS RESULT [...] >23.4 >11.0 Performed By: #### LLIPD #### [place] [address] TSH REFLEX (LODI) Collected: 07/30/2017 Status: F Source: [facility] 8:[facility] REPOSITORY TYPE CODE TESTS RESULT OUT OF REFERENCE UNITS RANGE LAB LTSHR(LOINC 0.34-4.82 uIU/mL ) TSH reflex 2.20 ([place]) Result Comment: Free T4 reflexed if TSH is less than or greater than the reference range. Performed By: #### LTSHR #### [place] [address] MDRD EGFR Collected: 07/30/2017 Status: F Source: [place] [address]:[facility] REPOSITORY TYPE CODE TESTS RESULT OUT OF RANGE REFERENCE UNITS LAB LGFRF(LOINC >60mL/min/1.73m ) 2 eGFR >60 Result Comment: If the patient is , multiply the result by 1.210. Performed By: #### LGFR #### [facility] [address] [place] [address] VITAMIN B12 Collected: 07/30/2017 Status: F Source: [facility] 8:05 AM HEALTH SYSTEM REPOSITORY TYPE CODE TESTS RESULT OUT OF REFERENCE UNITS RANGE LAB B12(LOINC) 193-986 pg/mL Low Vitamin B12 177 Performed By: #### B12 #### [facility] [address] [place] [address] FOLATE Collected: 07/30/2017 Status: F Source: [facility] 8:05 AM HEALTH SYSTEM REPOSITORY TYPE CODE TESTS RESULT OUT OF REFERENCE UNITS RANGE LAB FOL(LOINC) 3.10-17.50 ng/mL Folate 7.00 Performed By: #### FOL #### [place] [address] PROGRESS Observed: 07/24/2017 Status: COMPLETED Source: [place] 2:09 PM [facility] REPOSITORY HNO ID: [id number] Author: David Hidalgo Service: (none) Author Type: Physician Type: Progress Notes Filed: 07/27/2017 7:19 PM Note Text: Subjective: Sherita Jurado is a 71 year old White male, Patient presents with: Tremor: needs neurology referral . HPI Patient here with caregiver from his assisted. Has been having tremors X yrs, but few months its worse. Was referred to Neuro last year but pt never followed through. Is here today to get a new referral. No - Dysphagia. Some constipation but per caregiver pt never mentioned that at the assisted. + drooling Unsteady gait for a while, [...] food falls off the spoon. At the assisted staff is not allowed to assist with feeding. H/o schizophrenia , has a guardian - 10+yrs at assisted. PAST MEDICAL HISTORY Diagnosis Date - Actinic keratosis - Breast lump LT breast; cavernous hemangioma/excised - Dizziness - Epidermoid cyst of skin - Lipoma of skin forearms and abdomen - Mammogram abnormal suspicious of cancer- referral made - Obesity - On fci drug therapy - Palpitations - Schizophrenia (HCC) [...] MD This note was partially generated using Normal voice recognition system, and there may be some incorrect words, spellings, and punctuation that were not noted in checking the note before saving. CNOV Observed: 07/24/2017 Status: COMPLETED Source: [place] 2:00 PM [facility] REPOSITORY Office Visit (AGINTMLW) SHERITA JURADO ([id number]) 1945 M Date Time Provider Department 07/24/17 [...] MD 07/27/2017 7:19 PM Signed Subjective: Sherita Jurado is a 71 year old White male, Patient presents with: Tremor: needs neurology referral . HPI Patient here with caregiver from his assisted. Has been having tremors X yrs, but few months its worse. Was referred to Neuro last year but pt never followed through. Is here today to get a new referral. No - Dysphagia. Some constipation but per caregiver pt never mentioned that at the assisted. + drooling Unsteady gait for a while, [...] food falls off the spoon. At the assisted staff is not allowed to assist with feeding. H/o schizophrenia , has a guardian - 10+yrs at assisted. PAST MEDICAL HISTORY Diagnosis Date - Actinic keratosis - Breast lump LT breast; cavernous hemangioma/excised - Dizziness - Epidermoid cyst of skin - Lipoma of skin forearms and abdomen - Mammogram abnormal suspicious of cancer- referral made - Obesity - On intermediate manager drug therapy - Palpitations - Schizophrenia (HCC) [...] MD This note was partially generated using Normal voice recognition system, and there may be [...] [Z13.1] Order(s):CONSULT TO NEUROLOGY [9019] Order #: [id number]: 1 CT BRAIN WO IVCON [9878399] Order #: [id number] FUTURE VITAMIN B12 BLOOD [SQB12] Order #: [id number] FUTURE FOLATE SERUM [SQSERFOL] Order #: [id number] FUTURE CBC [SQCBC] Order #: [id number] FUTURE COMP METABOLIC PANEL [SQCMP] Order #: [id number] FUTURE LIPID PANEL BASIC [SQLIPB] Order #: [id number] FUTURE TSH, REFLEX [2963840] Order #: [id number] FUTURE Prescriptions as of 07/24/2017 Sig: AMANTADINE [...] Brigid Villaseñor LPN 07/24/2017 2:04 PM >> BIRGID VILLASEÑOR LPN [facility] Jul 24, 2017 2:04 PM Directions are 2 tablets after dinner daily. OMEGA 3 ORAL >> Brigid Villaseñor LPN 07/24/2017 2:01 PM >> BRIGID VILLASEÑOR LPN [facility] Jul 24, 2017 2:01 PM Not [...] 07/27/17 CNCO Observed: 07/24/2017 Status: COMPLETED Source: [place] 12:00 AM [facility] REPOSITORY Letter Text [address] [address] Dept Dept David Hidalgo MD [facility] -[address] [place] [id number] - - July 24, 2017 Sherita Jurado [address] [facility] [address] 1945 Dear Mr. Lynns, You have been referred to Dr Reyes to be evaluated and treated for tremors. Please call [phone] to schedule your appointment. [facility] affiliated providers will have access to your records. We ask that if you are not seeing a [facility] affiliated provider that you notify our office and provide the name of the provider and your appointment date. We will then verify if your insurance requires a prior authorization and will forward your records in a timely manner. Sincerely, David Hidalgo M.D. (Signed electronically to expedite mailing) Letter Text September 04, 2017 [facility] [address] [place], [place] [id number] Regarding: Sherita Dacosta Adrien (: 1945) Dear Dr. Hidalgo: A patient of your practice, Sherita Jurado, was admitted on 09/03/2017 to [place] under the services of the Department of Hospital Medicine, and is currently under the care of Dr. Ledesma. We look forward to collaborating with you regarding his care. If you have any questions or concerns, please call us in the Department of Hospital Medicine at [facility], at [phone]. Best Regards, Cristobal Barrera Letter Text September 09, 2017 [facility] [address] [address] Re: Sherita Jurado Dear Dr. Hidalgo: A patient of your practice, Sherita Jurado (: 1945) was treated at [place] under the care of the [facility] Department of Hospital Medicine, and discharged on 09/07/2017. A transcribed discharge summary should be forthcoming promptly. If you need additional information or assistance, you may contact the Department of Hospital Medicine at [phone] during regular business hours, and we?ll be happy to assist you. Best Regards, Cristobal Barrera CNPN Observed: 07/24/2017 Status: COMPLETED Source: [place] 12:00 AM [facility] REPOSITORY Telephone (AGFAMPLE) JURADOSHERITA Lepe ([id number]) 1945 M Date Time Provider Department 07/24/17 [id number] During your visit today, we recorded the following information about you: Estelita Wong 07/24/2017 3:04 PM Signed Paste Up Copy Camera Operator will make appt and let us know if we need to give office any info. Mayra Aburto ([facility]) 08/25/2017 11:39 AM Signed Patient has an appointment with Dr. Reyes in October. Please process referral. Thanks. Mayra Cordova [facility] Allergies As of Date: 07/24/2017 Noted Allergy Reaction GOOSE FEATHERS ALLERGENIC EXTRACT 11/08/2016 16 - Unknown ZYPREXA (OLANZAPINE) 11/08/2016 16 - Unknown Date Reviewed: 07/24/2017 Reviewed by: Brigid Villaseñor (Care Clinician) - Fully Assessed Reason for Visit: Consult [...] 05/19/2017 Status: F Source: [place] 12:32 PM [facility] Ej [place] [address] OFFICE VISIT Date of Service: 05/19/17 MR#: [id number] Acct: [id number] Patient: JURADOSHERITA Rep #: [id number] : 1945 Provider: Refugio DAMICO Age/Sex: 71/M Location: [facility] Status: Signed Intake Intake Visit Reasons: 2ND TB Office Procedures PPD Procedure TB Med Used: Tuberculin PPD 5 tub. unit/0.1 mL intradermal injection solution was administered Lot number: [id number] Intelligence Agent: Sanofi Pasteur date: 07/12/18 PPD Location: Left forearm Date PPD Placed: 05/19/17 Time PPD Placed: 9:51 am PPD Placed By: Boo Jim Assessment AND Plan Orders Orders: 05/19/17 1232 <Electronically signed by Refugio DAMICO> Date Refugio DAMICO Cosigner Signature: Date (if applicable) CC: ALLERGIES ALLERGIES DATE TYPE / CODE NAME / CODE REACTION SEVERITY SOURCE 11/08/2016 DRUG GOOSE FEATHERS UNKNOWN [facility] INGREDI/419 ALLERGENIC Other [place] 666983(SNOM EXTRACT Repository ED CT) 11/08/2016 DRUG OLANZAPINE UNKNOWN [facility] INGREDI/[facility] Other [place] 381937(SNOM Repository ED CT) 11/08/2016 DRUG GOOSE FEATHERS UNKNOWN [facility] INGREDI/[facility] ALLERGENIC Other [place] 591203(SNOM EXTRACT Repository ED CT) 11/08/2016 DRUG OLANZAPINE UNKNOWN [facility] INGREDI/419 Other [place] 349427(SNOM Repository ED CT) ENCOUNTERS ENCOUNTERS ADMIT/DISCHARGE ACCOUNT NUMBER ADMITTING ENCOUNTER LOCATION SOURCE CLASS 04/29/2018 [id number] APOLLO, UPSD Inpatient [place] [facility]counter [facility] Other [place] Repository 04/28/2018/04/29/19 [id number] Emergency [place] [facility] Other [place] Repository 03/27/2018 [id number] General acute hospital ding:[facility] Repository 03/27/2018 [id number] Ambulatory [facility] ding:MRI Repository 03/11/2018/03/11/20 [id number] Emergency [address] Other [place] Repository 02/01/2018/02/02/20 [id number] Emergency [address] Other [place] Repository 01/23/2018/01/31/20 [id number] JOSSE BALDERRAMA Inpatient [place] [address] [facility] Other [place] Repository 01/22/2018/01/23/20 [id number] Emergency [address] Other [place] Repository 12/17/2017/12/25/19 [id number] ZAINA, Ambulatory [address] Other [place] Repository 10/16/2017/10/21/19 [id number] Ambulatory [address] Main [place] Repository 09/07/2017/09/13/19 [id number] YUNIEL KRAFT, Inpatient [address] [facility] Other [place] Repository 09/03/2017/09/08/19 [id number] FRANCISCO STARKS Ambulatory [address] Other [place] Repository 05/21/2017/05/21/19 [id number] Ambulatory [facility]: [place] 18 [facility] Repository 05/19/2017/05/19/19 [id number] Ambulatory BMSBuilding: [place] 18 [facility] Repository PAYERS PAYERS ENCOUNTER GUARANTOR PAYER SUBSCRIBER SOURCE 03/27/2018 SHERITA L Primary SHERITA L [place] [facility] Insurance:ANTHEM PERKINANGELLAOB: [facility] CENTER[address] [employer] [id number] [address]Eyd: 330) Number: [phone] (HP) [id number] e Date:[id number] [address] [place] [address]YM: 03/27/2018 Secondary SHERITA L [place] Insurance:MEDICAIDPo PERKINSDOB: [facility] Number: [id number] [id number] Repository e Date:2018-03-27 03/27/2018 Tertiary NOT GIVENUNK [place] Insurance:SELF PAY [facility] Number: Effective Repository Date:2018-03-27 03/27/2018 SHERITA L Primary SHERITA L [place] [facility] Insurance:ANTHEM PERKINSDOB: [facility]ENTER[address]76 [employer] [id number] Rep[facility] [address]Ahc: (330) Number: [phone] () [id number] e Date:[id number], [place] [address]HV: 03/27/2018 Secondary SHERITA L [place] Insurance:MEDICAIDPo PERKINSDOB: [facility] Number: [id number] Hospital [id number] Repository e Date:2018-03-19 03/27/2018 Tertiary NOT GIVENUNK [place] Insurance:SELF PAY [facility] Number: Effective Repository Date:2018-03-19 05/21/2017 SHERITA LYNNS645 Primary NOT GIVENUNK [place] Insurance:SELF PAY [facility] [id number]: (330) [facility] [phone] (HP) Number: Effective Repository Date:2017-05-21 05/19/2017 SHERITA LYNNS645 Primary NOT GIVENUNK [place] Insurance:SELF PAY [facility] [id number]: (330) [facility] [phone] (HP) Number: Effective Repository Date:2017-05-19
== END ==
LOC: CVS 08:30
PROVIDERS: Family Provider Internal Medicine Geriatric Medicine; PCP Internal Medicine Geriatric Medicine; Referring Provider Psychiatry & Neurology Neurology; Visit Provider Psychiatry & Neurology Neurology
DX: R55 Syncope and collapse (principal)
CPT/HCPCS: 93270; 95819